=== PATIENT | female | born 1935 | race Caucasian/White ===

== ENCOUNTER 2016-11-02 11:01 | Observation (INO) | payer OTHER, MEDICARE ==
[~2016-11-02] VITALS: Ht 167.6 cm; Wt 62.9 kg
[~2016-11-02 11:01] MED LIST: ACET-1311 PO; ALLO300T2 PO; CALC1TAB9 PO; CITA10TA4 PO; CYAN3INJ IM; FURO-85 PO; IBRU1CAP PO; LORA-741 PO; MULT-506 PO; PRED10TA PO; TRAM-10 PO
[2016-11-02] MEDS ORDERED: NITROGLYCERIN 0.4 MG SL PER TAB CHARGE SL STA (11:16)
[2016-11-02] MEDS ORDERED: CYNI1000 INJ (11:33)
[2016-11-02] MEDS ORDERED: PRMVC (11:33)
[2016-11-02] MEDS ORDERED: MIRA100T PO (11:33)
--- NOTE | 2016-11-02 11:33 | DIAGNOSTIC IMAGING REPORT ---
CHEST ONE VIEW PORTABLE HISTORY: Atypical Chest Pain COMPARISON: Chest 01/19/2015. FINDINGS: The lungs are clear. Cardiac silhouette is normal in size. No pleural effusions. No pneumothorax. IMPRESSION: No acute process. Electronically signed by: Pelon Denton M.D. 11/02/2016 11:32 AM Dictated Date/Time: 11/02/2016 11:31 AM
--- NOTE | 2016-11-02 11:38 | EMERGENCY ROOM VISIT NOTE ---
History Report prepared by Marisol: Ina King Under the Supervision of: Dr. Eduar Chapman M.D. First contact with patient: 11:10 Chief Complaint: CARDIAC ASSESSMENT Stated Complaint: CHEST PAIN History of Present Illness The patient is a 81 year old female who presents to the Emergency Room with complaints of worsening chest discomfort starting yesterday. She describes the pain as dull. The chest pain started as a slight sensation in her chest yesterday. Today the sensation worsened into a discomfort. She went to Urgent Care who sent her to the ED. She denies any arm, neck, or jaw pain. She denies any increased swelling to her legs or SOB. She denies any history of [facility]. She has chronic lymphocytic leukemia. She is on steroids. She is not on any blood thinners. Source of History: patient Onset: yesterday Position: chest Quality: dull Timing: worsening Associated Symptoms: No SOB Note: Pt denies arm pain, neck pain, jaw pain, increased swelling to the legs. Review of Systems See HPI for pertinent positives & negatives. A total of 10 systems reviewed and were otherwise negative. Past Medical & Surgical Medical Problems: (1) Chest pain (2) Chronic lymphocytic leukemia (3) Leukemia (4) Neutropenic fever (5) Pneumonia (6) Sepsis syndrome (7) Tonsil cancer Family History Cancer Social History Smoking Status: Never Smoker Alcohol Use: none Drug Use: none Marital Status: Housing Status: lives with family Occupation Status: retired Current/Historical Medications Scheduled Allopurinol (Zyloprim), 1 TAB PO DAILY Calcium Citrate-Vitamin D (Citracal + D3 Maximum), 3 TABS PO QAM Cyanocobalamin (Cyanocobalamin), 1 ML INJ MONTHLY Ibrutinib (Imbruvica), 420 MG PO DAILY Lorazepam (Ativan), 0.5 MG PO TID Mirabegron (Myrbetriq Er), 2 TAB PO DAILY Multivitamin (Multivitamin), 1 TAB PO DAILY Prednisone Tab (Prednisone), 10 MG PO DAILY Scheduled PRN Acetaminophen (Tylenol), 650 MG PO Q6H PRN for Pain Furosemide (Lasix), 1 TAB PO DAILY PRN for edema Tramadol (Ultram), 50 MG PO Q4H PRN for Pain Miscellaneous Medications Estrogens, Conjugated (Premarin) Allergies Coded Allergies: Cephalosporins (Verified Allergy, Unknown, 06/27/16) Nitrofurantoin (Verified Allergy, Unknown, 06/27/16) Oxaprozin (Verified Allergy, Unknown, 06/27/16) Oxybutynin (Verified Allergy, Unknown, 06/27/16) Physical Exam Vital Signs Date Time Temp Pulse Resp B/P Pulse Ox O2 Delivery O2 Flow Rate FiO2 11/02/16 12:45 99 Room Air 11/02/16 11:41 86 18 135/74 97 Room Air 11/02/16 11:33 83 18 165/76 97 Room Air 11/02/16 11:27 83 11/02/16 11:03 36.7 88 18 173/91 98 Room Air Physical Exam GENERAL: Patient is mildly anxious appearing and in no acute distress. HEENT: No acute trauma, normocephalic atraumatic, mucous membranes moist, no nasal congestion, no scleral icterus. NECK: No stridor, no adenopathy, no meningismus, trachea is midline. LUNGS: No dyspnea. Clear to auscultation and equal bilaterally. No wheeze, no rhonchi. HEART: Regular rate and rhythm. No murmurs, rubs, gallops appreciated. ABDOMEN: Soft, nontender, bowel sounds positive, no masses appreciated, no peritonitis. BACK: No midline tenderness, no CVA tenderness. EXTREMITIES: Normal motion all extremities, no cyanosis. Trace edema to the bilateral legs with peripheral vascular disease. NEUROLOGIC: Alert and oriented, no acute motor or sensory deficits, no focal weakness, cranial nerves grossly intact. SKIN: No rash, no jaundice, no diaphoresis. Medical Decision & Procedures ER Provider Diagnostic Interpretation: X ray results are stated below per my interpretation and the radiologist's interpretation. CHEST ONE VIEW PORTABLE HISTORY: Atypical Chest Pain COMPARISON: Chest 01/19/2015. FINDINGS: The lungs are clear. Cardiac silhouette is normal in size. No pleural effusions. No pneumothorax. IMPRESSION: No acute process. Electronically signed by: Pelon Denton M.D. 11/02/2016 11:32 AM Dictated Date/Time: 11/02/2016 11:31 AM Laboratory Results 11/02/16 11:25 Red Blood Count 4.21, Mean Corpuscular Volume 86.7, Mean Corpuscular Hemoglobin 26.4, Mean Corpuscular Hemoglobin Concent 30.4, Mean Platelet Volume 9.9, Neutrophils (%) (Auto) 5.8, Lymphocytes (%) (Auto) 92.7, Monocytes (%) (Auto) 1.2, Eosinophils (%) (Auto) 0.0, Basophils (%) (Auto) 0.2, Neutrophils # (Auto) 2.04, Lymphocytes # (Auto) 32.59, Monocytes # (Auto) 0.43, Eosinophils # (Auto) 0.01, Basophils # (Auto) 0.06 11/02/16 11:25 Test 11/02/16 11:25 White Blood Count 35.15 K/uL (4.8-10.8) Red Blood Count 4.21 M/uL (4.2-5.4) Hemoglobin 11.1 g/dL (12.0-16.0) Hematocrit 36.5 % (37-47) Mean Corpuscular Volume 86.7 fL (80-100) Mean Corpuscular Hemoglobin 26.4 pg (25-34) Mean Corpuscular Hemoglobin Concent 30.4 g/dl (32-36) Platelet Count 121 K/uL (130-400) Mean Platelet Volume 9.9 fL (7.4-10.4) Neutrophils (%) (Auto) 5.8 % Lymphocytes (%) (Auto) 92.7 % Monocytes (%) (Auto) 1.2 % Eosinophils (%) (Auto) 0.0 % Basophils (%) (Auto) 0.2 % Neutrophils # (Auto) 2.04 K/uL (1.4-6.5) Lymphocytes # (Auto) 32.59 K/uL (1.2-3.4) Monocytes # (Auto) 0.43 K/uL (0.11-0.59) Eosinophils # (Auto) 0.01 K/uL (0-0.5) Basophils # (Auto) 0.06 K/uL (0-0.2) RDW Standard Deviation 48.1 fL (36.4-46.3) RDW Coefficient of Variation 15.1 % (11.5-14.5) Immature Granulocyte % (Auto) 0.1 % Immature Granulocyte # (Auto) 0.02 K/uL (0.00-0.02) Smudge Cells PRESENT Anion Gap 8.0 mmol/L (3-11) Est Creatinine Clear Calc Drug Dose 44.9 ml/min Estimated GFR () 66.0 Estimated GFR (Non- 57.0 BUN/Creatinine Ratio 31.4 (10-20) Calcium Level 9.0 mg/dl (8.5-10.1) Total Creatine Kinase 28 U/L (26-192) Creatine Kinase MB 0.5 ng/ml (0.5-3.6) Creatine Kinase MB Ratio 1.8 (0-3.0) Troponin I < 0.015 ng/ml (0-0.045) Laboratory results as reviewed by me. Medications Administered Medications (Trade) Dose Ordered Sig/Jazmine Route Start Time Stop Time Status Last Admin Dose Admin Nitroglycerin (Nitrostat Tab) 0.4 mg PRN STAT SL 11/02/16 11:16 11/02/16 11:17 DC 11/02/16 11:16 0.4 MG ECG Indication: chest pain Rate (beats per minute): 82 Rhythm: normal sinus Findings: nonspecific-ST abn, ST elevation (mild in V1 only, does not meet STEMI criteria) ED Course 1111: The patient was evaluated in room C6. A complete history and physical exam was performed. 1116: Nitroglycerin 0.4 mg SL. 1143: I reevaluated the patient. She has had complete resolution of her chest pain with nitro. She has developed a mild headache and requests Tylenol. 1144: Acetaminophen 325 mg PO. 1216: I reevaluated the patient. She is resting comfortably. I discussed results and treatment plan with the patient. She verbalized understanding and agreement with the treatment plan. The patient will be evaluated for further management. 1223: I discussed the patient's case with Dr. Woo, [facility] Hospitalist. The patient will be evaluated for further treatment and disposition. Medical Decision Differential: Cardiac Ischemia (STEMI, NSTEMI, Unstable Angina, etc), Aortic Dissection, Arrhythmia, Pulmonary Embolism, Pneumonia, Pneumothorax, MSK, Infectious, Pericarditis/Myocarditis, Esophageal Rupture, Gastrointestinal, amongst other pathologies entertained. 81 yr old female arrives with complaint of left chest pressure. Exertional in nature starting yesterday. Resolved with nitro. Much improved after being here. Initial labs, ekg, trop, cxr OK. Will need to come in for further cardiac work-up and evaluation. Stable throughout ED stay. Consults Time Called: 1221 Consulting Physician: Dr. Woo [facility] Hospitalist Returned Call: 1223 Discussed the patient's case. The patient will be evaluated for further treatment and disposition. Impression Primary Impression: Pressure in left side of chest Scribe Attestation The scribe's documentation has been prepared under my direction and personally reviewed by me in its entirety. I confirm that the note above accurately reflects all work, treatment, procedures, and medical decision making performed by me. Departure Information Dispostion Being Evaluated By Hospitalist Referrals Tita Garcia M.D. (PCP) Patient Instructions My [facility]
[2016-11-02] MEDS ORDERED: ACETAMINOPHEN 325 MG TAB PO STA (11:44)
[2016-11-02 11:53] LABS: BLOOD UREA NITROGEN 30 mg/dl (7-18); BUN/CREATININE RATIO 31.4 (10-20); CARBON DIOXIDE 29 mmol/L (21-32); CHLORIDE 104 mmol/L (98-107); CREATININE 0.95 mg/dl (0.60-1.20); GLUCOSE 107 mg/dl (70-99); POTASSIUM 4.4 mmol/L (3.5-5.1); SODIUM 141 mmol/L (136-145)
[2016-11-02 11:58] LABS: CKMB/CK RATIO 1.8 (0-3.0)
[2016-11-02 12:12] LABS: HEMATOCRIT 36.5 % (37-47); MEAN CELL VOLUME 86.7 fL (80-100); MEAN CORPUSCULAR HEMOGLOBIN 26.4 pg (25-34); MEAN CORPUSCULAR HGB CONC 30.4 g/dl (32-36); MEAN PLATELET VOLUME 9.9 fL (7.4-10.4); PLATELET COUNT 121 K/uL (130-400); RED BLOOD COUNT 4.21 M/uL (4.2-5.4); WHITE BLOOD COUNT 35.15 K/uL (4.8-10.8)
[2016-11-02 12:32] LABS: BASO % 0.2 %; BASO ABS # 0.06 K/uL (0-0.2); COMPLETE YES; IG% 0.1 %; LYMPH % 92.7 %; LYMPH ABS # 32.59 K/uL (1.2-3.4); MONO % 1.2 %; NEUT % 5.8 %; SMUDGE CELLS PRESENT
--- NOTE | 2016-11-02 12:41 | History and Physical ---
History & Physical Date & Time of Service: Nov 02, 2016 at 12:40 . Chief Complaint: chest pain . Primary Care Physician: Tita Garcia M.D. . History of Present Illness Source: patient, clinic records, hospital records 81 YO female followed by Dr. Tita Garcia for Internal Medicine and Dr. Mills for Hematology / Oncology. History of CLL, dyslipidemia, and other problems noted below. BP's high at times, but usually OK and has not required treatment for hypertension. Gardening yesterday. Developed mild left sided chest pressure afterwards. [place] tired. No SOB, diaphoresis, nausea, vomiting. Symptoms resolved with rest. 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 Ambulated from her car. Developed left sided chest pressure, more severe than yesterday. Pain did not radiate and was not pleuritic in nature. No associated dyspnea, palpitations, nausea, vomiting. Came to ED. Still had some chest discomfort upon arrival. Received SL nitroglycerin with relief of CP. Pain-free at time of my assessment. . 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 Family History FATHER Heart disease MOTHER Brain aneurysm BROTHER Cancer GRANDMOTHER Diabetes mellitus / reviewed and updated. . Social History Smoking Status: Never Smoker Alcohol Use: occasionally Drug Use: none Marital Status: Occupational Status: retired Immunizations History of Influenza Vaccine: Yes History of Tetanus Vaccine?: Yes History of Pneumococcal: Yes Pneumococcal Date: November 30, 2008 History of Hepatitis B Vaccine: No Multi-Drug Resistant Organisms History of MDRO: No Allergies Coded Allergies: Cephalosporins (Verified Allergy, Unknown, 06/27/16) Nitrofurantoin (Verified Allergy, Unknown, 06/27/16) Oxaprozin (Verified Allergy, Unknown, 06/27/16) Oxybutynin (Verified Allergy, Unknown, 06/27/16) Home Medications Scheduled Allopurinol (Zyloprim), 1 TAB PO DAILY Calcium Citrate-Vitamin D (Citracal + D3 Maximum), 3 TABS PO QAM Cyanocobalamin (Cyanocobalamin), 1 ML INJ MONTHLY Ibrutinib (Imbruvica), 420 MG PO DAILY Lorazepam (Ativan), 0.5 MG PO TID Mirabegron (Myrbetriq Er), 2 TAB PO DAILY Multivitamin (Multivitamin), 1 TAB PO DAILY Prednisone Tab (Prednisone), 10 MG PO DAILY Scheduled PRN Acetaminophen (Tylenol), 650 MG PO Q6H PRN for Pain Furosemide (Lasix), 1 TAB PO DAILY PRN for edema Tramadol (Ultram), 50 MG PO Q4H PRN for Pain Miscellaneous Medications Estrogens, Conjugated (Premarin) Review of Systems Constitutional: + fatigue, No chills, No fever, No weight loss Eyes: No diplopia, No worsening of vision ENT: + hearing loss, No nasal symptoms, No sore throat Respiratory: + cough (minimal), No shortness of breath, No sputum, No wheezing Cardiovascular: + problem reported (as noted above in HPI) Abdomen: No constipation, No diarrhea, No nausea, No pain, No vomiting Musculoskeletal: + joint pain Genitourinary - Female: No dysuria, No hematuria (undergoing eval for microscopic hematuria) Neurologic: No memory loss, No weakness Endocrine: No excessive thirst, No excessive urination Hematologic / Lymphatic: + abnormal bleeding/bruising (bruises very easily), + swollen lymph nodes (chronic) Integumentary: + problem reported (followed by Derm; recent cryotherapy), No rash Physical Exam Vital Signs Date Time Temp Pulse Resp B/P Pulse Ox O2 Delivery O2 Flow Rate FiO2 11/02/16 11:41 86 18 135/74 97 Room Air 11/02/16 11:33 83 18 165/76 97 Room Air 11/02/16 11:27 83 11/02/16 11:03 36.7 88 18 173/91 98 Room Air General Appearance: WD/WN, no apparent distress Head: normocephalic, atraumatic Eyes: normal inspection, PERRL, EOMI, sclerae normal, + pertinent finding ( conjunctivae pink) ENT: normal ENT inspection, hearing grossly normal (with hearing aide), pharynx normal, + pertinent finding (dentition fair; multiple caries) Neck: supple, thyroid normal, no JVD, trachea midline Respiratory/Chest: lungs clear, no respiratory distress, no accessory muscle use Cardiovascular: regular rate, rhythm, no edema, no gallop, no JVD, no murmur, normal peripheral pulses Abdomen/GI: normal bowel sounds, non tender, soft, no organomegaly, no pulsatile mass Extremities/Musculoskelatal: normal inspection, no calf tenderness, normal capillary refill, no pedal edema Neurologic/Psych: smearer II-XII nml as tested (PERRL, EOMI, no facial palsy, no dysarthria), no motor/sensory deficits (strength upper and lower extremies intact), normal mood/affect, normal reflexes (patellar reflexes 2/2 bilat), oriented x 3 Skin: normal color, warm/dry, no rash, + pertinent finding (multiple ecchymoses , multiple seborrheic keratoses, several lesions with shallow ulceration from recent cryotherapy) Lymphatic: + axillary node abnormality (cervical / supraclavicular) Diagnostics Laboratory Results Results Past 24 Hours Test 11/02/16 11:25 Range/Units White Blood Count 35.15 4.8-10.8 K/uL Red Blood Count 4.21 4.2-5.4 M/uL Hemoglobin 11.1 12.0-16.0 g/dL Hematocrit 36.5 37-47 % Mean Corpuscular Volume 86.7 80-100 fL Mean Corpuscular Hemoglobin 26.4 25-34 pg Mean Corpuscular Hemoglobin Concent 30.4 32-36 g/dl Platelet Count 121 130-400 K/uL Mean Platelet Volume 9.9 7.4-10.4 fL Neutrophils (%) (Auto) 5.8 % Lymphocytes (%) (Auto) 92.7 % Monocytes (%) (Auto) 1.2 % Eosinophils (%) (Auto) 0.0 % Basophils (%) (Auto) 0.2 % Neutrophils # (Auto) 2.04 1.4-6.5 K/uL Lymphocytes # (Auto) 32.59 1.2-3.4 K/uL Monocytes # (Auto) 0.43 0.11-0.59 K/uL Eosinophils # (Auto) 0.01 0-0.5 K/uL Basophils # (Auto) 0.06 0-0.2 K/uL RDW Standard Deviation 48.1 36.4-46.3 fL RDW Coefficient of Variation 15.1 11.5-14.5 % Immature Granulocyte % (Auto) 0.1 % Immature Granulocyte # (Auto) 0.02 0.00-0.02 K/uL Smudge Cells PRESENT Sodium Level 141 136-145 mmol/L Potassium Level 4.4 3.5-5.1 mmol/L Chloride Level 104 98-107 mmol/L Carbon Dioxide Level 29 21-32 mmol/L Anion Gap 8.0 3-11 mmol/L Blood Urea Nitrogen 30 7-18 mg/dl Creatinine 0.95 0.60-1.20 mg/dl Est Creatinine Clear Calc Drug Dose 44.9 ml/min Estimated GFR () 66.0 Estimated GFR (Non- 57.0 BUN/Creatinine Ratio 31.4 10-20 Random Glucose 107 70-99 mg/dl Calcium Level 9.0 8.5-10.1 mg/dl Total Creatine Kinase 28 26-192 U/L Creatine Kinase MB 0.5 0.5-3.6 ng/ml Creatine Kinase MB Ratio 1.8 0-3.0 Troponin I < 0.015 0-0.045 ng/ml Diagnostic Radiology CHEST ONE VIEW PORTABLE (reviewed by undersigned and interpreted by Radiology): FINDINGS: The lungs are clear. Cardiac silhouette is normal in size. No pleural effusions. No pneumothorax. IMPRESSION: No acute process. Electronically signed by: Pelon Denton M.D. 11/02/2016 11:32 AM Dictated Date/Time: 11/02/2016 11:31 AM . EKG EKG performed at 11:11 reviewed and demonstrated NSR at 80 / minute, possible age-indeterminate septal infarct, no acute ST or T-wave abnormalities. . Impression Assessment and Plan CHEST PAIN CP with moderate exertion over last 2 days. Symptoms worse today, relieved by NTG. Risk factors for CAD- dyslipidemia, borderline hypertension, chronic steroid use. Cardiac markers in ED normal. No acute EKG changes. Check serial cardiac markers and EKG's. Consult Cardiology. BORDERLINE HYPERTENSION Follow. DYSLIPIDEMIA Check fasting lipid profile. CLL WBC 35,150 compared to 46,250 on 10/18/16. Plts 121,000 compared to 133,000 on 10/18/16. Hgb 11.1 compared to 10.3 on 10/18/16. Continue ibrutinib and prednisone. Follow-up with Dr. Mills. MICROSCOPIC HEMATURIA Undergoing outpatient evaluation. VTE PROPHYLAXIS Moderate risk for VTE. No anticoagulants due to thrombocytopenia and easy bruising. SCD's. Ambulate. RESUSCITATION STATUS Discussed with patient. She has a living will. She would like resuscitation attempted in the event of a cardiopulmonary arrest if there is a reasonable chance of a meaningful recovery, but does not want prolonged extraordinary measures if prognosis is poor. Therefore, code status = "Level 1" (full resuscitation). DISPOSITION Observation status on Telemetry Unit. Expected discharge to home. Internal Medicine follow-up with Dr. Tita Garcia. Hematology / Oncology follow-up with Dr. Mills. . VTE Prophylaxis Risk Level: Moderate Given or contraindicated: SCD's
[2016-11-02 12:45] VITALS: O2SAT 99; Ht 167.6 cm; Wt 62.9 kg
[2016-11-02] MEDS ORDERED: ACETAMINOPHEN 325 MG TAB PO PRN ×2 (12:45→14:30)
[2016-11-02] MEDS ORDERED: MoRPHine SULFATE 2 MG/ML CARP IV PRN (12:45)
[2016-11-02] MEDS ORDERED: NITROGLYCERIN 0.4 MG SL PER TAB CHARGE SL PRN (12:45)
[2016-11-02] MEDS ORDERED: HEPARIN SOD 5000 UNIT/0.5 ML CARP SQ SCH (14:00)
[2016-11-02] MEDS ORDERED: IV FLUIDS COMPLETED PRN (14:15)
[2016-11-02] MEDS ORDERED: TRAMADOL HCL 50 MG TAB PO PRN (14:30)
[2016-11-02 14:49] VITALS: BP 180/80; PULSE 92; TEMP 36.8; O2SAT 98
[2016-11-02 16:00] VITALS: BP 144/69; PULSE 80; O2SAT 94
[2016-11-02 20:03] VITALS: BP 138/76; PULSE 89; TEMP 36.8; O2SAT 97
[2016-11-02] MEDS: LORAZEPAM 0.5 MG TAB PO SCH (21:02)
[2016-11-03] VITALS: BP 135/69; PULSE 86; TEMP 36.8; O2SAT 97
[2016-11-03 03:49] VITALS: BP 157/70; PULSE 86; TEMP 36.8; O2SAT 97
[2016-11-03 06:25] LABS: CHOLESTEROL/HDL RATIO 2.7
[2016-11-03 07:52] VITALS: BP 142/77; PULSE 87; TEMP 36.6; O2SAT 96
[2016-11-03] MEDS: LORAZEPAM 0.5 MG TAB PO SCH ×3 (07:53→20:54)
[2016-11-03] MEDS: ALLOPURINOL 300 MG TAB PO SCH (08:16)
--- NOTE | 2016-11-03 09:52 | Progress Note ---
Medicine Progress Note Date & Time of Visit: Nov 03, 2016 at 09:44. Subjective seen resting in bed, comfortable states she feels fine overall denies recurrence of chest pain denies shortness of breath, palpitations, nausea/vomiting no other symptoms Objective Last 8 Hrs Date Time Temp Pulse Resp B/P Pulse Ox O2 Delivery O2 Flow Rate FiO2 11/03/16 08:00 Room Air 11/03/16 07:52 36.6 87 20 142/77 96 Room Air 11/03/16 04:00 Room Air 11/03/16 03:49 36.8 86 20 157/70 97 Room Air Physical Exam: General- oriented x 3 , not in distress Head- atraumatic Eyes- EOMI, anicteric ENT- oropharynx clear Neck- supple, no JVD, no adenopathy Lungs- clear breath sounds bilaterally Heart- regular rhythm; no murmur, normal rate Abdomen- normal bowel sounds, soft, nontender Extremities- no pretibial edema, no calf tenderness; peripheral pulses intact Neuro- alert, oriented x 3; no gross focal deficits Skin- warm & dry Laboratory Results: Last 24 Hours Test 11/02/16 11:25 11/02/16 19:03 11/03/16 05:08 White Blood Count 35.15 K/uL Red Blood Count 4.21 M/uL Hemoglobin 11.1 g/dL Hematocrit 36.5 % Mean Corpuscular Volume 86.7 fL Mean Corpuscular Hemoglobin 26.4 pg Mean Corpuscular Hemoglobin Concent 30.4 g/dl Platelet Count 121 K/uL Mean Platelet Volume 9.9 fL Neutrophils (%) (Auto) 5.8 % Lymphocytes (%) (Auto) 92.7 % Monocytes (%) (Auto) 1.2 % Eosinophils (%) (Auto) 0.0 % Basophils (%) (Auto) 0.2 % Neutrophils # (Auto) 2.04 K/uL Lymphocytes # (Auto) 32.59 K/uL Monocytes # (Auto) 0.43 K/uL Eosinophils # (Auto) 0.01 K/uL Basophils # (Auto) 0.06 K/uL RDW Standard Deviation 48.1 fL RDW Coefficient of Variation 15.1 % Immature Granulocyte % (Auto) 0.1 % Immature Granulocyte # (Auto) 0.02 K/uL Smudge Cells PRESENT Sodium Level 141 mmol/L Potassium Level 4.4 mmol/L Chloride Level 104 mmol/L Carbon Dioxide Level 29 mmol/L Anion Gap 8.0 mmol/L Blood Urea Nitrogen 30 mg/dl Creatinine 0.95 mg/dl Est Creatinine Clear Calc Drug Dose 44.9 ml/min Estimated GFR () 66.0 Estimated GFR (Non- 57.0 BUN/Creatinine Ratio 31.4 Random Glucose 107 mg/dl Calcium Level 9.0 mg/dl Total Creatine Kinase 28 U/L Creatine Kinase MB 0.5 ng/ml Creatine Kinase MB Ratio 1.8 Troponin I < 0.015 ng/ml 0.021 ng/ml 0.020 ng/ml Triglycerides Level 136 mg/dl Cholesterol Level 169 mg/dl HDL Cholesterol 63 mg/dl LDL Cholesterol, Calculated 79 mg/dl VLDL Cholesterol, Calculated 27 mg/dl Cholesterol/HDL Ratio 2.7 Assessment & Plan 81 year old female with history of CLL, HLD, presenting with chest pain. CHEST PAIN, r/o ACS, secondary to Hypertensive Urgency? presented with chest pain on moderate exertion over last 2 days; relieved by Nitro at the ER -- cardiac markers negative x 3 ekg no signs of acute ischemia echo pending -- currently chest pain free -- Cardiology consulted HYPERTENSION -- patient noted increase in BP trend after starting Myrbetriq has not taken Myrbetriq since -- monitor DYSLIPIDEMIA LDL 79 HDL 63 TG 136 CLL WBC 35,150 compared to 46,250 on 10/18/16. Plts 121,000 compared to 133,000 on 10/18/16. Hgb 11.1 compared to 10.3 on 10/18/16. Continue ibrutinib and prednisone. follows with Dr. Mills MICROSCOPIC HEMATURIA Undergoing outpatient evaluation. VTE PROPHYLAXIS Moderate risk for VTE. No anticoagulants due to thrombocytopenia and easy bruising. SCD's. Ambulate. RESUSCITATION STATUS full code DISPOSITION Observation status on Telemetry Unit. Expected discharge to home. Internal Medicine follow-up with Dr. Tita Garcia. Hematology / Oncology follow-up with Dr. Mills. . Current Inpatient Medications: Current Inpatient Medications Medications (Trade) Dose Ordered Sig/Jazmine Route Start Time Stop Time Status Last Admin Dose Admin Acetaminophen (Tylenol Tab) 650 mg Q4H PRN PO 11/02/16 12:45 12/02/16 12:44 11/02/16 16:04 650 MG Nitroglycerin (Nitrostat Tab) 0.4 mg UD PRN SL 11/02/16 12:45 12/02/16 12:44 Morphine Sulfate (MoRPHine SULFATE INJ) 2 mg Q30M PRN IV 11/02/16 12:45 11/16/16 12:44 Miscellaneous (Iv Fluids Completed) 1 ea PRN PRN N/A 11/02/16 14:15 11/02/17 14:14 Allopurinol (Zyloprim Tab) 300 mg DAILY PO 11/03/16 09:00 12/03/16 08:59 11/03/16 08:16 300 MG Lorazepam (Ativan Tab) 0.5 mg TID PO 11/02/16 21:00 12/02/16 20:59 11/02/16 21:02 0.5 MG Prednisone (PredniSONE TAB) 10 mg DAILY PO 11/03/16 09:00 12/03/16 08:59 11/03/16 08:16 10 MG Tramadol HCl (Ultram Tab) 50 mg Q4H PRN PO 11/02/16 14:30 12/02/16 14:29 Miscellaneous Information (Order Awaiting Action) 1 ea QS N/A 11/02/16 16:00 12/02/16 15:59 11/03/16 07:56 1 EA
[2016-11-03 12:17] VITALS: BP 147/75; PULSE 109; TEMP 36.7; O2SAT 97
--- NOTE | 2016-11-03 14:38 | CARDIOLOGY CONSULTATION ---
DATE OF CONSULTATION: 11/03/2016 REASON FOR CONSULTATION: Chest pain. HISTORY OF PRESENT ILLNESS: This is a 81-year-old female who has had chronic lymphocytic leukemia for decades. Recently she started a new chemotherapy regimen which she has been taking for a year and her blood dyscrasia continues to be stable. The day before admission, the patient was in her usual state of good health and was doing some gardening. She developed some mild left-sided chest discomfort that went away with rest. It was not associated with shortness of breath or heart palpitations. 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 She presented to the Emergency Department where she was given 1 sublingual nitroglycerin that relieved her chest pain and she has been chest pain free since admission. Her EKG shows no acute changes and her cardiac markers have been negative. ALLERGIES: CEPHALOSPORINS, NITROFURANTOIN, OXAPROZIN, AND OXYBUTYNIN. PAST MEDICAL HISTORY: As outlined in history of chief complaint. She has a history of chronic lymphocytic leukemia which has been treated for decades by Dr. Mills from [facility]. She is also treated for GERD and dyslipidemia. SOCIAL HISTORY: She is a never smoke. She is and lives independently. FAMILY MEDICAL HISTORY: Noncontributory. REVIEW OF SYSTEMS: A 10-point review of systems is negative except for the history of chief complaint. PHYSICAL EXAMINATION: GENERAL: She is alert and oriented in no acute distress. VITAL SIGNS: Blood pressure is 130/70, pulse is regular at 86. She is afebrile. HEENT: She is normocephalic. Pupils are equal and reactive to light. Extraocular muscles are intact bilaterally. NECK: The neck veins are flat. Carotids have good upstrokes bilaterally without bruits. Thyroid is nonpalpable. RESPIRATORY: Breath sounds equal bilaterally and clear to auscultation. CARDIOVASCULAR: Heart has a regular rhythm. Normal S1, S2. No S3, S4. No cardiac rubs or murmurs. GASTROINTESTINAL: Abdomen is soft, nontender without organomegaly. EXTREMITIES: Free of edema, digit clubbing, or cyanosis. NEUROLOGIC: Grossly intact. SKIN: Warm to touch. LYMPH NODES: Negative to palpation. LABORATORY DATA: Per the history of chief complaint. IMPRESSION: 1. Chest pain. 2. Chronic lymphocytic leukemia. RECOMMENDATIONS: I believe the patient should undergo a screening stress test prior to discharge home. This should be a dobutamine stress echocardiogram and I will order it to be done tomorrow morning. If that study is unremarkable, then she can be discharged to outpatient followup.
[2016-11-03 15:22] VITALS: BP 123/66; PULSE 93; TEMP 36.6; O2SAT 96
[2016-11-03 19:49] VITALS: BP 130/69; PULSE 86; TEMP 36.7; O2SAT 96
[2016-11-04] VITALS: BP 144/71; PULSE 86; TEMP 36.6; O2SAT 97
[2016-11-04 03:59] VITALS: BP 142/71; PULSE 78; TEMP 36.6; O2SAT 98
[2016-11-04] MEDS: ALLOPURINOL 300 MG TAB PO SCH (07:43)
[2016-11-04] MEDS: LORAZEPAM 0.5 MG TAB PO SCH ×2 (07:43→07:45)
[2016-11-04 07:54] VITALS: BP 139/77; PULSE 93; TEMP 36.5; O2SAT 97
[2016-11-04] MEDS ORDERED: METOPROLOL TARTRATE 1 MG/ML VIAL ONE (09:44)
[2016-11-04] MEDS ORDERED: DOBUTamine HCL 12.5 MG/ML 20 ML VIAL ONE (09:44)
[2016-11-04] MEDS ORDERED: ATROPINE SULFATE 0.1 MG/ML 5ML SYR ONE (09:44)
[2016-11-04 12:05] VITALS: BP 141/82; PULSE 84; TEMP 36.6; O2SAT 97
--- NOTE | 2016-11-04 12:16 | Progress Note ---
Medicine Progress Note Date & Time of Visit: November 04, 2016 at 12:09. Subjective s/p stress test today tolerated well seen sitting up in bed, just had lunch states she feels better overall denies recurrence of chest pain no dyspnea, palpitations, nausea/vomiting denies other symptoms states she is ready and would like to go home today Objective Last 8 Hrs Date Time Temp Pulse Resp B/P Pulse Ox O2 Delivery O2 Flow Rate FiO2 11/04/16 12:05 36.6 84 20 141/82 97 Room Air 11/04/16 12:00 Room Air 11/04/16 08:00 Room Air 11/04/16 07:54 36.5 93 20 139/77 97 Room Air Physical Exam: General- oriented x 3 , not in distress Neck- no JVD Lungs- clear BS bilaterally, no rales/wheezes Heart- normal rate, regular rhythm; no murmurs Abdomen- normal bowel sounds, soft, nontender Extremities- no pretibial edema, no calf tenderness Neuro- alert, oriented x 3; no gross focal deficits Skin- warm & dry Assessment & Plan 81 year old female with history of CLL, HLD, presenting with chest pain. CHEST PAIN, ACUTE CORONARY SYNDROME RULED OUT possiblly secondary to Hypertensive Urgency presented with chest pain on moderate exertion over last 2 days prior to admission; relieved by Nitro at the ER -- cardiac markers negative x 3 ekg no signs of acute ischemia s/p stress test: NEGATIVE for ischemia -- no recurrence of chest pain -- evaluated by Dr. Cummings- Cardiology no further medications changes except to stop Myrbetriq HYPERTENSION -- patient noted increase in BP trend after starting Myrbetriq has not taken Myrbetriq since prior to admission -- BP improving- systolic 130s-140s asymptomatic -- monitor BP as outpatient DYSLIPIDEMIA LDL 79 HDL 63 TG 136 -- monitor as outpatient CLL WBC 35,150 compared to 46,250 on 10/18/16. Plts 121,000 compared to 133,000 on 10/18/16. Hgb 11.1 compared to 10.3 on 10/18/16. Continue ibrutinib and prednisone. -- follows with Dr. Mills ff up on Friday MICROSCOPIC HEMATURIA Undergoing outpatient evaluation. VTE PROPHYLAXIS Moderate risk for VTE. No anticoagulants due to thrombocytopenia and easy bruising. SCD's. Ambulate. RESUSCITATION STATUS full code DISPOSITION d/c home Internal Medicine follow-up with Dr. Tita Garcia next week. Hematology / Oncology follow-up with Dr. Mills this coming Friday. . Current Inpatient Medications: Current Inpatient Medications Medications (Trade) Dose Ordered Sig/Jazmine Route Start Time Stop Time Status Last Admin Dose Admin Acetaminophen (Tylenol Tab) 650 mg Q4H PRN PO 11/02/16 12:45 12/02/16 12:44 11/02/16 16:04 650 MG Nitroglycerin (Nitrostat Tab) 0.4 mg UD PRN SL 11/02/16 12:45 12/02/16 12:44 Morphine Sulfate (MoRPHine SULFATE INJ) 2 mg Q30M PRN IV 11/02/16 12:45 11/16/16 12:44 Miscellaneous (Iv Fluids Completed) 1 ea PRN PRN N/A 11/02/16 14:15 11/02/17 14:14 Allopurinol (Zyloprim Tab) 300 mg DAILY PO 11/03/16 09:00 12/03/16 08:59 11/04/16 07:43 300 MG Lorazepam (Ativan Tab) 0.5 mg TID PO 11/02/16 21:00 12/02/16 20:59 11/03/16 20:54 0.5 MG Prednisone (PredniSONE TAB) 10 mg DAILY PO 11/03/16 09:00 12/03/16 08:59 11/04/16 07:43 10 MG Tramadol HCl (Ultram Tab) 50 mg Q4H PRN PO 11/02/16 14:30 12/02/16 14:29 Miscellaneous Information (Order Awaiting Action) 1 ea QS N/A 11/02/16 16:00 12/02/16 15:59 11/03/16 07:56 1 EA
--- NOTE | 2016-11-04 12:26 | Discharge Instructions ---
Discharge Instructions Date of Service November 04, 2016. Admission Reason for Admission: Chest Pain Discharge Discharge Diagnosis / Problem: CHEST PAIN Discharge Goals Goal(s): Diagnostic testing, Therapeutic intervention Activity Recommendations Activity Limitations: as noted below (NO HEAVY EXERTION UNTIL RE-EVALUATED BY PRIMARY CARE PHYSICIAN) . Instructions / Follow-Up Instructions / Follow-Up DISCONTINUE MYRBETRIQ. CALL PRIMARY CARE PHYSICIAN OR RETURN TO ER IMMEDIATELY IF WITH RECURRENCE OF SYMPTOMS, SHORTNESS OF BREATH, WEAKNESS, HEADACHE, DIZZINESS. FOLLOW UP WITH DR. TURNER SCHEDULED THIS WEEK. FOLLOW UP WITH DR. DIA ON NOVEMBER 11, 2016 AT 10:45 AM. Current Hospital Diet Patient's current hospital diet: AHA Diet (Heart Healthy) Discharge Diet Recommended Diet: AHA Diet (Heart Healthy) Procedures Procedures Performed: STRESS TEST Pending Studies Studies pending at discharge: no Laboratory Results Lipid Panel Test 11/03/16 05:08 Range/Units Triglycerides Level 136 0-150 mg/dl Cholesterol Level 169 0-200 mg/dl HDL Cholesterol 63 mg/dl Cholesterol/HDL Ratio 2.7 LDL Cholesterol, Calculated 79 mg/dl Medical Emergencies . Who to Call and When: Medical Emergencies: If at any time you feel your situation is an emergency, please call 911 immediately. . Non-Emergent Contact Non-Emergency issues call your: Primary Care Provider Call Non-Emergent contact if: you have any medication questions . 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 "Provider Documentation" section prepared by Johann Bishop. . VTE Core Measure Inpt VTE Proph given/why not?: SCD's, Contraindicated (BRUISING)
--- NOTE | 2016-11-04 12:29 | Discharge Summary ---
Discharge Summary Date of Service November 04, 2016. Discharge Summary Admission Date: Nov 02, 2016 at 12:45 Discharge Date: November 04, 2016 Discharge Disposition: Home Principal Diagnosis: CHEST PAIN, ACUTE CORONARY SYNDROME RULED OUT possibly secondary to Hypertensive Urgency Secondary Diagnoses/Problems: Please refer to hospital course below. Procedures: s/p STRESS TEST Consultations: SKIRT CLIPPER DR. CUMMINGS Pending Studies/Follow-Up: Monitor BP (re: hypertension, possibly from Myrbetriq); Please refer to hospital course below for further details. Medication Reconciliation Continued Medications: Acetaminophen (Tylenol) 325 Mg Tab 650 MG PO Q6H PRN for Pain, TAB Allopurinol (Zyloprim) 300 Mg Tab 1 TAB PO DAILY Calcium Citrate-Vitamin D (Citracal + D3 Maximum) 1 Tab Tab 3 TABS PO QAM Cyanocobalamin (Cyanocobalamin) 1,000 Mcg/Ml Inj 1 ML INJ MONTHLY, #1 Estrogens, Conjugated (Premarin) 14 Appln/30 Gm Cr #30 INSERT 0.5G INTO THE VAGINA AT BEDTIME TWICE A WEEK AT BEDTIME NEEDED Furosemide (Lasix) 20 Mg Tab 1 TAB PO DAILY PRN for edema, TAB 1 Refill Ibrutinib (Imbruvica) 140 Mg Cap 420 MG PO DAILY Lorazepam (Ativan) 0.5 Mg Tab 0.5 MG PO TID for Anxiety/Agitation, TAB Multivitamin (Multivitamin) Tab 1 TAB PO DAILY, TAB Prednisone Tab (Prednisone) 10 Mg Tab 10 MG PO DAILY, TAB Tramadol (Ultram) 50 Mg Tab 50 MG PO Q4H PRN for Pain, TAB Discontinued Medications: Mirabegron (Myrbetriq Er) 25 Mg Tab 2 TAB PO DAILY, #30 Admission Information HPI (per Admitting provider): 81 YO female followed by Dr. Tita Garcia for Internal Medicine and Dr. Turner for Hematology / Oncology. History of CLL, dyslipidemia, and other problems noted below. BP's high at times, but usually OK and has not required treatment for hypertension. Gardening yesterday. Developed mild left sided chest pressure afterwards. [place] tired. No SOB, diaphoresis, nausea, vomiting. Symptoms resolved with rest. 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 Developed left sided chest pressure, more severe than yesterday. Pain did not radiate and was not pleuritic in nature. No associated dyspnea, palpitations, nausea, vomiting. Came to ED. Still had some chest discomfort upon arrival. Received SL nitroglycerin with relief of CP. Pain-free at time of my assessment. . Physical Exam (per Admitting): General Appearance: WD/WN, no apparent distress Head: normocephalic, atraumatic Eyes: normal inspection, PERRL, EOMI, sclerae normal, + pertinent finding ( conjunctivae pink) ENT: normal ENT inspection, hearing grossly normal (with hearing aide), pharynx normal, + pertinent finding (dentition fair; multiple caries) Neck: supple, thyroid normal, no JVD, trachea midline Respiratory/Chest: lungs clear, no respiratory distress, no accessory muscle use Cardiovascular: regular rate, rhythm, no edema, no gallop, no JVD, no murmur , normal peripheral pulses Abdomen/GI: normal bowel sounds, non tender, soft, no organomegaly, no pulsatile mass Extremities/Musculoskelatal: normal inspection, no calf tenderness, normal capillary refill, no pedal edema Neurologic/Psych: director of emergency nursing II-XII nml as tested (PERRL, EOMI, no facial palsy, no dysarthria), no motor/sensory deficits (strength upper and lower extremies intact), normal mood/affect, normal reflexes (patellar reflexes 2/2 bilat), oriented x 3 Skin: normal color, warm/dry, no rash, + pertinent finding (multiple ecchymoses, multiple seborrheic keratoses, several lesions with shallow ulceration from recent cryotherapy) Lymphatic: + axillary node abnormality (cervical / supraclavicular) Hospital Course 81 year old female with history of CLL, HLD, presenting with chest pain. CHEST PAIN, ACUTE CORONARY SYNDROME RULED OUT possibly secondary to Hypertensive Urgency --presented with chest pain on moderate exertion over last 2 days prior to admission; relieved by Nitro at the ER -- cardiac markers negative x 3 ekg no signs of acute ischemia s/p stress test 11/04/[address] Cummings: NEGATIVE for ischemia -- no recurrence of chest pain, improved overall -- evaluated by Dr. Cummings- Cardiology, cleared for discharge no further medications changes except to stop Myrbetriq HYPERTENSION -- patient noted increase in BP trend after starting Myrbetriq has not taken Myrbetriq since prior to admission -- BP improving since admission- from systolic 170s to 130s-140s asymptomatic -- monitor BP as outpatient DYSLIPIDEMIA LDL 79 HDL 63 TG 136 -- monitor as outpatient CLL WBC 35,150 compared to 46,250 on 10/18/16. Plts 121,000 compared to 133,000 on 10/18/16. Hgb 11.1 compared to 10.3 on 10/18/16. Continue ibrutinib and prednisone. -- follows with Dr. Turner, ff up on Friday MICROSCOPIC HEMATURIA Undergoing outpatient evaluation. DISPOSITION d/c home Internal Medicine follow-up with Dr. Tita Garcia next week. Hematology / Oncology follow-up with Dr. Turner this coming Friday. . Total time spent on discharge = 30 minutes This includes examination of the patient, discharge planning, medication reconciliation, and communication with other providers. Discharge Instructions Discharge Instructions Date of Service November 04, 2016. Admission Reason for Admission: Chest Pain Discharge Discharge Diagnosis / Problem: CHEST PAIN Discharge Goals Goal(s): Diagnostic testing, Therapeutic intervention Activity Recommendations Activity Limitations: as noted below (NO HEAVY EXERTION UNTIL RE-EVALUATED BY PRIMARY CARE PHYSICIAN) . Instructions / Follow-Up Instructions / Follow-Up DISCONTINUE MYRBETRIQ. CALL PRIMARY CARE PHYSICIAN OR RETURN TO ER IMMEDIATELY IF WITH RECURRENCE OF SYMPTOMS, SHORTNESS OF BREATH, WEAKNESS, HEADACHE, DIZZINESS. FOLLOW UP WITH DR. TURNER SCHEDULED THIS WEEK. FOLLOW UP WITH DR. GARCIA ON NOVEMBER 11, 2016 AT 10:45 AM. Current Hospital Diet Patient's current hospital diet: AHA Diet (Heart Healthy) Discharge Diet Recommended Diet: AHA Diet (Heart Healthy) Procedures Procedures Performed: STRESS TEST Pending Studies Studies pending at discharge: no Laboratory Results Lipid Panel Test 11/03/16 05:08 Range/Units Triglycerides Level 136 0-150 mg/dl Cholesterol Level 169 0-200 mg/dl HDL Cholesterol 63 mg/dl Cholesterol/HDL Ratio 2.7 LDL Cholesterol, Calculated 79 mg/dl Medical Emergencies . Who to Call and When: Medical Emergencies: If at any time you feel your situation is an emergency, please call 911 immediately. . Non-Emergent Contact Non-Emergency issues call your: Primary Care Provider Call Non-Emergent contact if: you have any medication questions . 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 "Provider Documentation" section prepared by Johann Bishop. . VTE Core Measure Inpt VTE Proph given/why not?: SCD's, Contraindicated (BRUISING)
[2016-11-04 12:37] VITALS: BP 141/82; PULSE 84; TEMP 36.6; O2SAT 97
--- NOTE | 2016-11-04 15:01 | DOBUTAMINE ECHO ---
*NOTICE TO RECEIVING DEMOCRAT AGENCY This information is strictly Confidential and protected under [place] law. [place] law prohibits you from making any further disclosure of this information unless further disclosure is expressly permitted by the written consent of the person to whom it pertains or is authorized by law. A general authorization for the release of medical or other information is not sufficient for this purpose. Hospital accepts no responsibility if the information is made available to any other person, INCLUDING THE PATIENT. Interpretation Summary * Name: TONY DOYLE Study Date: 11/04/2016 08:48 AM BP: 153/61 mmHg * Patient Location: .2E\S\E205\S\1 HR: 81 * : 1935 (M/d/yyyy) Gender: Female Height: 65 in * Age: 81 yrs Ethnicity: CA Weight: 138 lb * Ordering Physician: Sudhir Cummings * Referring Physician: Self, Referred * Performed By: Araceli Whalen RDCS * * Reason For Study: Chest pain * BSA: 1.7 m2 * STRESS STUDY: Normal pharmacologic stress echocardiogram. No echocardiographic or ECG evidence of myocardial ischemia having achieved heart rate adequate for diagnostic purposes. * -- Conclusions -- * STRESS STUDY: Normal pharmacologic stress echocardiogram. No echocardiographic or ECG evidence of myocardial ischemia having achieved heart rate adequate for diagnostic purposes. Procedure Details * DOBUTAMINE ECHO, CPT#63921 * ECHO DOPPLER, CPT #[id number] * ECHO COLOR FLOW, CPT #[id number] Left Ventricle * The left ventricle is normal in size. * There is normal left ventricular wall thickness. * Ejection Fraction = >70 %. * The left ventricular wall motion is normal. Right Ventricle * The right ventricular systolic function is normal. Atria * The left atrial size is normal. * Right atrial size is normal. * The interatrial septum is intact with no evidence for an atrial septal defect. Mitral Valve * The mitral valve is normal in structure and function. Tricuspid Valve * The tricuspid valve is normal in structure and function. Aortic Valve * The aortic valve is normal in structure and function. Pulmonic Valve * The pulmonic valve is not well visualized. Great Vessels * The aortic root and proximal ascending aorta are normal sized. Pericardium * There is no pericardial effusion. Stress Parameters * Normal baseline electrocardiogram. * The stress ECG response was normal * Stress ECG: No ST changes. No arrhythmias. * The stress portion of this study was personally supervised by the undersigned interpreting physician. * Rest heart rate was '81' BPM. * Rest blood pressure was '153/61' * Maximum heart rate achieved was 131 bpm. * Maximum heart rate was 92 % of maximum age-predicted heart rate. * Maximum blood pressure was '196/65' * Maximum Dobutamine infusion rate was '30' mcg/kg/min. * Dobutamine infusion was terminated due to achieving target heart rate * A total of 5 mg of IV Metoprolol was administered to reverse Dobutamine-induced tachycardia. * The patient did not exhibit any symptoms during drug infusion. MMode 2D Measurements and Calculations IVSd 1.0 cm LVIDd 3.2 cm LVIDs 2.1 cm LVPWd 1.0 cm IVS/LVPW 0.99 FS 34.1 % EDV(Teich) 40.6 ml ESV(Teich) 14.4 ml EF(Teich) 64.5 % EDV(cubed) 32.4 ml ESV(cubed) 9.3 ml EF(cubed) 71.4 % LV mass(C)d 91.9 grams LV mass(C)dI 54.4 grams/m\S\2 SV(Teich) 26.2 ml SI(Teich) 15.5 ml/m\S\2 SV(cubed) 23.1 ml SI(cubed) 13.7 ml/m\S\2 Ao root diam 3.2 cm Ao root area 8.2 cm\S\2 ACS 1.4 cm LA dimension 2.7 cm asc Aorta Diam 3.5 cm LA/Ao 0.84 LVAd ap4 19.2 cm\S\2 LVLd ap4 7.2 cm EDV(MOD-sp4) 42.7 ml EDV(sp4-el) 43.7 ml LVAs ap4 8.2 cm\S\2 LVLs ap4 5.7 cm ESV(MOD-sp4) 10.8 ml ESV(sp4-el) 10.1 ml EF(MOD-sp4) 74.8 % EF(sp4-el) 76.9 % LVAd ap2 16.8 cm\S\2 LVLd ap2 6.7 cm EDV(MOD-sp2) 35.1 ml EDV(sp2-el) 36.0 ml LVAs ap2 7.8 cm\S\2 LVLs ap2 5.0 cm ESV(MOD-sp2) 10.1 ml ESV(sp2-el) 10.2 ml EF(MOD-sp2) 71.3 % EF(sp2-el) 71.5 % LVLd %diff -7.35 % EDV(MOD-bp) 40.4 ml LVLs %diff -14.87 % ESV(MOD-bp) 11.0 ml EF(MOD-bp) 72.8 % SV(MOD-sp4) 32.0 ml SI(MOD-sp4) 18.9 ml/m\S\2 SV(MOD-sp2) 25.0 ml SI(MOD-sp2) 14.8 ml/m\S\2 SV(MOD-bp) 29.4 ml SI(MOD-bp) 17.4 ml/m\S\2 SV(sp4-el) 33.6 ml SI(sp4-el) 19.9 ml/m\S\2 SV(sp2-el) 25.7 ml SI(sp2-el) 15.2 ml/m\S\2 Doppler Measurements and Calculations MV E max xi 51.3 cm/sec MV A max xi 89.8 cm/sec MV E/A 0.57 MV dec time 0.20 sec Ao V2 max 121.6 cm/sec Ao max PG 5.9 mmHg Ao max PG (full) 0.81 mmHg AI max xi 174.5 cm/sec AI max PG 12.2 mmHg AI dec slope 85.4 cm/sec\S\2 AI P1/2t 598.8 msec LV V1 max PG 5.1 mmHg LV V1 max 113.0 cm/sec PA V2 max 73.9 cm/sec PA max PG 2.2 mmHg PA acc slope 386.0 cm/sec\S\2 PA acc time 0.14 sec PI max xi 185.2 cm/sec PI max PG 13.7 mmHg PI dec slope 135.9 cm/sec\S\2 PI P1/2t 399.0 msec TR max xi 212.3 cm/sec PA pr(Accel) 15.6 mmHg
== END 2016-11-04 13:30 | disposition home or self-care (01) ==
LOC: ENRESERVTM → ENRESERVDT → C.EDB 11:02 → C.2E 12:45
PROVIDERS: ADMIT Hospitalist; ATTEND Internal Medicine
DX: R07.89 Other chest pain (principal); C91.10 Chronic lymphocytic leukemia of B-cell type not having achieved remission; R03.0 Elevated blood-pressure reading, without diagnosis of hypertension; E78.5 Hyperlipidemia, unspecified; K21.9 Gastro-esophageal reflux disease without esophagitis; M19.90 Unspecified osteoarthritis, unspecified site; M81.0 Age-related osteoporosis without current pathological fracture; Z87.01 Personal history of pneumonia (recurrent); Z85.89 Personal history of malignant neoplasm of other organs and systems; Z92.241 Personal history of systemic steroid therapy; Z85.820 Personal history of malignant melanoma of skin; Z86.2 Personal history of diseases of the blood and blood-forming organs and certain disorders involving the immune mechanism; Z90.710 Acquired absence of both cervix and uterus; Z98.49 Cataract extraction status, unspecified eye; Z82.3 Family history of stroke; Z83.3 Family history of diabetes mellitus; Z79.899 Other long term (current) drug therapy

== ENCOUNTER → 2016-11-19 | Outpatient (CLI) | payer OTHER, MEDICARE ==
[2015-11-22 13:24] VITALS: BP 117/67; PULSE 99
[~2016-11-19] MED LIST changes: -CITA10TA4 PO; -CYAN3INJ IM; +CYNI1000 INJ; +PRMVC
[2016-11-19 13:10] VITALS: BP_SYST 119; BP_SYST 149; BP_DIAS 67; BP_DIAS 79; PULSE 84; TEMP 36.7; O2SAT 96
--- NOTE | 2016-11-19 17:29 | Radiation Oncology Follow-Up ---
Radiation Oncology Follow-Up Date of Visit November 19, 2016. 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 Adams is a 80-year-old female who was diagnosed with CLL in 1983. At that time she underwent a hysterectomy and as part of her blood work up was noted to have blood changes consistent with a CLL. She was told at that time that she just needed to be followed and in fact was followed for many years. Ultimately, she transferred her care to Dr. Mills at which time she had required no treatment. He states that she has had one and possibly two short episodes of treatment, but does not remember the medication that she was given for a few months. The patient had been feeling well when she noted discomfort in the left tonsillar region. She was seen by her PCP and noted a mass in the left tonsillar region. A CT scan of the neck was ordered on December 03. An ill- defined soft tissue density is noted at the level of the base of tongue causing slight asymmetric narrowing of the oropharynx on the left. Aside from lymphadenopathy the parotid, conditioner tumbler operator, and submandibular spaces are unremarkable. The visceral spaces including epiglottis, supraglottis glottis and glottic and subglottic regions are unremarkable. Diffuse lymphadenopathy is noted within the neck, supraclavicular regions and axilla compatible with reported history of chronic lymphocytic leukemia. Hypodense nodules are noted within the right thyroid lobe. With these findings, the patient was sent for evaluation to Dr. Osman who saw the patient on December 05. His visual impression was that of a +2 left without erythema or exudate. The patient had difficulty with a mirror exam and therefore performed a fiberoptic examination of the larynx and the nasopharynx was without masses or lesions. The vocal cord mobility was normal without paralysis or paresis. No other significant edema or erythema of the larynx was noted. No vocal cord masses were appreciated and no lesions in the post cricoid or piriform sinus region. He proceeded with a biopsy of the left superior tonsil. 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 Further staging workup including lab studies showed a markedly elevated white count at 134.61, RBCs 3.33, hemoglobin 10.6, hematocrit 35.4 and a platelet count of 59,000. Dr. Mills ordered a completion staging with a CT scan of the chest, abdomen,and pelvis performed on December 19. This confirmed the supraclavicular, right hilar and some subpectoral/axillary and pelvic lymphadenopathy. Also noted was splenomegaly all consistent with lymphoma. Pleural-based 0.6 cm pulmonary nodule was noted with recommended followup CT scan in 6 months. An age-indeterminate L3 and L4 compression deformity. The above lymph nodes are in the range of 1-1.[address] Mills was looking for whether her disease was progressive distantly or just in the tonsil. With these findings of only significant for tonsillar disease he felt the patient would be best served by involved field external beam therapy. She was treated from 01/14/2012 to 02/28/2012 and received 4500 cGy. She did have significant mucositis and pharyngitis from treatment and the radiation dose was changed for better tolerance. Interim History Ms. Adams is doing well overall. She continues to follow with Dr. Mills carefully. She is being treated with Ibrutinib for her CLL and is doing well overall. She denies any fevers, chills or night sweats. She denies any significant weight loss. She denies any xerostomia, loss of taste sensation, difficulty swallowing or dysphagia. She has no difficulty with voice quality overall. She states that her blood work continues to be routine with Dr. Mills. Otherwise she has no complaints. Allergies Coded Allergies: Cephalosporins (Verified Allergy, Unknown, 06/27/16) Nitrofurantoin (Verified Allergy, Unknown, 06/27/16) Oxaprozin (Verified Allergy, Unknown, 06/27/16) Oxybutynin (Verified Allergy, Unknown, 06/27/16) Home Medications Scheduled Allopurinol (Zyloprim), 1 TAB PO DAILY Calcium Citrate-Vitamin D (Citracal + D3 Maximum), 3 TABS PO QAM Cyanocobalamin (Cyanocobalamin), 1 ML INJ MONTHLY Ibrutinib (Imbruvica), 420 MG PO DAILY Lorazepam (Ativan), 0.5 MG PO TID Multivitamin (Multivitamin), 1 TAB PO DAILY Prednisone Tab (Prednisone), 10 MG PO DAILY Scheduled PRN Acetaminophen (Tylenol), 650 MG PO Q6H PRN for Pain Furosemide (Lasix), 1 TAB PO DAILY PRN for edema Tramadol (Ultram), 50 MG PO Q4H PRN for Pain Miscellaneous Medications Estrogens, Conjugated (Premarin) Review of Systems Gastrointestinal: Symptoms: WNL Oral: Symptoms: No Problems Other Oral Symptoms: No residual effects from her radiation treatments; Respiratory: Symptoms: SOB With Exertion Respiratory Comments: occasional chronic cough sometimes productive for clear mucus Other Respiratory: Relates this to weight gain; Urinary: Symptoms: WNL Comments: wears pad for urinary leakage Skin: Other Skin Symptoms: Multiple bruises over body along w/skin discoloration Physical Exam Vital Signs Date Time Temp Pulse Resp B/P Pulse Ox O2 Delivery O2 Flow Rate FiO2 11/19/16 13:10 36.7 84 20 149/79 96 119/67 Pain: Pain Onset: 2 months Pain Duration: intermet Pain Location: tongue Patient Pain Scale: 0 - 10 Initial Pain Intensity: 0.0 Pain Description: Soreness Additional Comments: had bx tongue fungus per patient General Appearance: WD/WN, no apparent distress Eyes: normal inspection, PERRL, EOMI ENT: normal ENT inspection, hearing grossly normal, TMs normal, pharynx normal Neck: supple, no adenopathy Respiratory/Chest: chest non-tender, lungs clear, normal breath sounds, no respiratory distress Cardiovascular: regular rate, rhythm, no edema, no gallop, no JVD Abdomen: normal bowel sounds, soft, no organomegaly Lymphatic: no adenopathy Laboratory Studies Test 11/02/16 11:25 11/02/16 19:03 11/03/16 05:08 White Blood Count 35.15 K/uL (4.8-10.8) Red Blood Count 4.21 M/uL (4.2-5.4) Hemoglobin 11.1 g/dL (12.0-16.0) Hematocrit 36.5 % (37-47) Mean Corpuscular Volume 86.7 fL (80-100) Mean Corpuscular Hemoglobin 26.4 pg (25-34) Mean Corpuscular Hemoglobin Concent 30.4 g/dl (32-36) Platelet Count 121 K/uL (130-400) Mean Platelet Volume 9.9 fL (7.4-10.4) Neutrophils (%) (Auto) 5.8 % Lymphocytes (%) (Auto) 92.7 % Monocytes (%) (Auto) 1.2 % Eosinophils (%) (Auto) 0.0 % Basophils (%) (Auto) 0.2 % Neutrophils # (Auto) 2.04 K/uL (1.4-6.5) Lymphocytes # (Auto) 32.59 K/uL (1.2-3.4) Monocytes # (Auto) 0.43 K/uL (0.11-0.59) Eosinophils # (Auto) 0.01 K/uL (0-0.5) Basophils # (Auto) 0.06 K/uL (0-0.2) RDW Standard Deviation 48.1 fL (36.4-46.3) RDW Coefficient of Variation 15.1 % (11.5-14.5) Immature Granulocyte % (Auto) 0.1 % Immature Granulocyte # (Auto) 0.02 K/uL (0.00-0.02) Smudge Cells PRESENT Sodium Level 141 mmol/L (136-145) Potassium Level 4.4 mmol/L (3.5-5.1) Chloride Level 104 mmol/L (98-107) Carbon Dioxide Level 29 mmol/L (21-32) Anion Gap 8.0 mmol/L (3-11) Blood Urea Nitrogen 30 mg/dl (7-18) Creatinine 0.95 mg/dl (0.60-1.20) Est Creatinine Clear Calc Drug Dose 44.9 ml/min Estimated GFR () 66.0 Estimated GFR (Non- 57.0 BUN/Creatinine Ratio 31.4 (10-20) Random Glucose 107 mg/dl (70-99) Calcium Level 9.0 mg/dl (8.5-10.1) Total Creatine Kinase 28 U/L (26-192) Creatine Kinase MB 0.5 ng/ml (0.5-3.6) Creatine Kinase MB Ratio 1.8 (0-3.0) Troponin I 0.021 ng/ml (0-0.045) 0.020 ng/ml (0-0.045) Triglycerides Level 136 mg/dl (0-150) Cholesterol Level 169 mg/dl (0-200) HDL Cholesterol 63 mg/dl LDL Cholesterol, Calculated 79 mg/dl VLDL Cholesterol, Calculated 27 mg/dl Cholesterol/HDL Ratio 2.7 Assessment & Plan Ms. Adams is a 81-year-old female who presents with a history of CLL that was initially diagnosed in 1983. She was treated for a left tonsillar mass that was biopsy proven with external beam radiation therapy in February 2012. She continues to undergo systemic therapy with Dr. Mills and is doing well overall. Her blood work continues to be normal and Dr. Mills continues to order her blood work for her. She has no recent staging scans. Dr. Mills continues to see her every 3 months with a repeat CBC. At this point, the patient would like to only be followed by Dr. Mills and her primary care physician. Given the fact that she did finish radiation therapy over 5 years ago, we feel it is reasonable that she can follow with Dr. Mills alone for her CLL. We have encouraged her to call us if she has any questions or concerns or if she would like to be seen again. Total Time In Follow-Up I spent 20 minutes examining and counseling the patient. I spent 15 minutes completing this note. Copy To Tita Garcia M.D.; Riley Mills M.D.
== END | disposition home or self-care (01) ==
LOC: C.ONC 13:00
PROVIDERS: ATTEND Physician Assistant Medical
DX: Z08 Encounter for follow-up examination after completed treatment for malignant neoplasm (principal); Z92.3 Personal history of irradiation; Z85.810 Personal history of malignant neoplasm of tongue

== ENCOUNTER → 2017-06-09 | Outpatient (CLI) | payer OTHER, MEDICARE ==
--- NOTE | 2017-06-09 12:13 | DIAGNOSTIC IMAGING REPORT ---
CHEST-PA,LAT AND OBLIQUE VIEWS HISTORY: 81 years-old Female COUGH acute cough with right-sided chest pain COMPARISON: Chest radiograph 05/06/2017, CTA of the chest 06/27/2016 TECHNIQUE: PA view of the chest with lateral and bilateral oblique views FINDINGS: Cardiac silhouette is upper limits of normal, unchanged. Lungs are mildly hyperinflated. There is moderate atherosclerosis of the aorta. Mild biapical pleural-parenchymal scarring without pneumothorax, pleural effusion, focal airspace consolidation or overt pulmonary edema. Parenchymal calcifications of the bilateral breasts are redemonstrated. The bones appear mildly demineralized. Remote appearing fracture of the posterior lateral aspect right seventh rib is noted. Probable rotator cuff calcific tendinosis of the bilateral shoulders. IMPRESSION: 1. No acute cardiopulmonary process. 2. Parenchymal calcifications of the bilateral breasts redemonstrated. The above report was generated using voice recognition software. It may contain grammatical, syntax or spelling errors. Electronically signed by: Noel Petit M.D. 06/09/2017 12:12 PM Dictated Date/Time: 06/09/2017 12:10 PM
== END | disposition home or self-care (01) ==
LOC: C.RAD1850 11:34
PROVIDERS: ATTEND Physician Assistant
DX: R05 Cough (principal)

== ENCOUNTER 2017-07-15 18:02 | Inpatient (IN) | payer OTHER, MEDICARE ==
[~2017-07-15] VITALS: Ht 170.2 cm; Wt 70.0 kg
[~2017-07-15 18:02] MED LIST changes: +METO25TA3 PO
[2017-07-15] MEDS ORDERED: FENTANYL CITRATE INJ 50 MCG/1 ML 2 ML VIAL IV ONE (18:30)
[2017-07-15 18:57] LABS: CALCIUM 8.7 mg/dl (8.5-10.1); CREATININE 1.1 mg/dl (0.60-1.20); POTASSIUM 4.1 mmol/L (3.5-5.1)
--- NOTE | 2017-07-15 19:02 | EMERGENCY ROOM VISIT NOTE ---
History First contact with patient: 18:07 Chief Complaint: FALL Stated Complaint: FALL, R RIB PAIN, BILAT. ARM PAIN History of Present Illness The patient is a 81 year old female who presents to the Emergency Room with complaints of a mechanical fall prior to arrival. The patient was bending over to plug in her cell phone when she lost her balance falling forward area she tried to catch herself with both of her hands landing on the floor. She does not think that she hit her head. She denies any headache or neck pain. She is experiencing pain in her upper arms bilaterally. She is also complaining of right sided rib pain. She denies any shortness of breath. No abdominal pain. She denies any back pain or hip pain. She did also landed on her right knee and notes a bruise. She had fentanyl in route with good pain relief. Review of Systems 10 system review performed and negative unless noted in HPI or below Past Medical/Surgical History Medical Problems: (1) Chronic lymphocytic leukemia (2) Chronic steroid use (3) Diverticulosis of colon (4) Dyslipidemia (5) GERD (gastroesophageal reflux disease) (6) History of squamous cell carcinoma (7) Hypogammaglobulinemia, acquired (8) Osteoarthritis (9) Osteoporosis Surgical Problems: (1) Status post cataract extraction (2) Status post hysterectomy Family History Brain aneurysm MOTHER Cancer BROTHER Diabetes mellitus GRANDMOTHER Heart disease FATHER Social History Smoking Status: Never Smoker Alcohol Use: none Drug Use: none Marital Status: Housing Status: lives with family Occupation Status: retired Current/Historical Medications Scheduled Calcium Citrate-Vitamin D (Citracal + D3 Maximum), 3 TABS PO QAM Ciprofloxacin (Ciprofloxacin HCl), 500 MG PO BID Citalopram Hydrobromide (Citalopram Hydrobromide), 10 MG PO DAILY Cyanocobalamin (Vitamin B-12), 1,000 MCG SQ MONTHLY Ibrutinib (Imbruvica), 420 MG PO DAILY Ipratropium-Albuterol (Duoneb), 1 TREATMENT INH Q4H Melatonin (Melatonin Cr), 3 MG PO HS Multivitamin (Multivitamin), 1 TAB PO DAILY Zhxskdex-Pwiflmsnq-Qx Otic (Cortisporin Otic), DROPS OP 3XWK Prednisone Tab (Prednisone), 10 MG PO DAILY Scheduled PRN Acetaminophen (Tylenol), 650 MG PO Q6H PRN for Pain Dextromethorphan-Guaifenesin (Mucinex Dm), 1 TAB PO Q12 PRN for CONGESTION Furosemide (Furosemide), 20 MG PO WK PRN for LEG SWELLING Guaifenesin Ext Rel (Mucinex Ext Rel), 600 MG PO Q12 PRN for Lorazepam (Lorazepam), 0.5 MG PO Q4 PRN for Anxiety Tramadol (Ultram), 50 MG PO Q4H PRN for Pain Miscellaneous Medications Estrogens, Conjugated (Premarin) Physical Exam Vital Signs Date Time Temp Pulse Resp B/P (MAP) Pulse Ox O2 Delivery O2 Flow Rate FiO2 07/15/17 22:20 78 18 106/58 96 Room Air 07/15/17 20:47 84 22 121/67 99 Room Air 07/15/17 18:13 36.7 82 22 177/90 100 Room Air Physical Exam VITALS: Vitals are noted on the nurse's note and reviewed by myself. Vital signs stable. GENERAL: 81-year-old female, mildly uncomfortable,, in no acute distress, nondiaphoretic, well-developed well-nourished. SKIN: Ecchymosis noted to the right knee. Small skin tear noted to the left upper arm.. HEAD: Normocephalic atraumatic. EARS: External auditory canals clear, tympanic membranes pearly mantilla without erythema or effusion bilaterally. EYES: Pupils equal round and reactive to light and accommodation. Conjunctivae without injection, sclerae without icterus. Extraocular movements intact. MOUTH: Mucous membranes moist. Tonsils are not enlarged. Pharynx without erythema or exudate. Uvula midline. Airway patent. Tongue does not deviate. NECK: Supple without nuchal rigidity. Cervical spine is nontender. No JVD. HEART: Regular rate and rhythm without murmurs gallops or rubs. Tenderness to palpation over the right lateral lower ribs. No crepitus. LUNGS: Clear to auscultation bilaterally without wheezes, rales or rhonchi. No accessory muscle use. ABDOMEN: Positive bowel sounds x 4.Soft, nontender, without organomegaly. No guarding or rebound tenderness. MUSCULOSKELETAL: Significant contusion over the right knee. Full range of motion of both knees. Tenderness to palpation over the right proximal humerus. Pain with any range of motion of the right shoulder. Tenderness to palpation also over the left lateral humerus. Pain with any range of motion of the left shoulder also noted. Pain extends into the elbows bilaterally. Pain with any flexion and extension of the elbows bilaterally. Radial pulse +2 bilaterally. [employer] strength 5/5. NEURO: Patient was alert and oriented to person place and time. Normal sensation to touch. No focal neurological deficits. Medical Decision & Procedures ER Provider Diagnostic Interpretation: Patient Name: TONY DOYLE Unit Number: [id number] Dictated: 07/15/172015 Transcribed: 07/15/172015 ARG Printed Date/Time: [~ rep prt dt]/[~ rep prt tm] [~ rep ct labl] - [~ rep ct ivnm] [facility] Radiology Department [place], [place] [address] Dictated: 07/15/172015 Transcribed: 07/15/172015 ARG Printed Date/Time: [~ rep prt dt]/[~ rep prt tm] [~ rep ct labl] - [~ rep ct ivnm] IMPRESSION: Comminuted fracture dislocation of the humeral head and neck. Electronically signed by: González Navarro M.D. 07/15/2017 8:17 PM Dictated Date/Time: 07/15/2017 8:16 PM The status of this report is Signed. Draft = Not yet reviewed or approved by Radiologist. Signed = Reviewed and approved by Radiologist. <AttendingPhy></AttendingPhy> <FamilyPhy>Tita Garcia M.D.</FamilyPhy> < PrimaryPhy>Tita Garcia M.D.</PrimaryPhy> <UnitNumber>[id number]</UnitNumber > <VisitNumber>[id number]</VisitNumber> <PatientName>TONY DOYLE</ PatientName> <DateOfBirth>1935</DateOfBirth> <Location>[facility]</Location> < ServiceDate>07/15/17</ServiceDate> <MNE>ESINDI</MNE> <OrderingPhy>Marcia Rose PA-C</OrderingPhy> <OrderingPhyMNE>f rep ord dr randolph</OrderingPhyMNE> < DictatingPhyMNE>f rep dict dr randolph</DictatingPhyMNE> <CCListMNE>f rep ct mne</ CCListMNE> <AdmittingPhyMNE>f pt admit dr randolph</AdmittingPhyMNE> <AttendingPhyMNE >f pt attend dr randolph</AttendingPhyMNE> <ConsultingPhyMNE>f pt consult dr randolph</ConsultingPhyMNE> <FamilyPhyMNE>f pt fam dr randolph</FamilyPhyMNE> <OtherPhyMNE>f pt other dr randolph</OtherPhyMNE> < PrimaryPhyMNE>f pt prim care dr randolph</PrimaryPhyMNE> <ReferringPhyMNE>f pt referring dr randolph</ReferringPhyMNE> bilateral ribs IMPRESSION: 1. Fracture dislocation the proximal right humerus 2. Fracture the proximal left humerus 3. Old right seventh rib fracture. No acute rib fractures identified 4. No evidence of pneumothorax Electronically signed by: González Navarro M.D. 07/15/2017 8:25 PM Dictated Date/Time: 07/15/2017 8:23 PM The status of this report is Signed. Draft = Not yet reviewed or approved by Radiologist. Signed = Reviewed and approved by Radiologist. L elbow xrays IMPRESSION: No fractures or dislocations identified. Electronically signed by: González Navarro M.D. 07/15/2017 8:22 PM Dictated Date/Time: 07/15/2017 8:22 PM The status of this report is Signed. Draft = Not yet reviewed or approved by Radiologist. Signed = Reviewed and approved by Radiologist. <AttendingPhy></AttendingPhy> <FamilyPhy>Tita Garcia M.D.</FamilyPhy> < PrimaryPhy>Tita Garcia M.D.</PrimaryPhy> <UnitNumber>[id number]</UnitNumber > <VisitNumber>[id number]</VisitNumber> <PatientName>VIVEK Davis elbow xrays Patient Name: TONY DOYLE Unit Number: [id number] Dictated: 07/15/172018 Transcribed: 07/15/17 2019 ARG Printed Date/Time: [~ rep prt dt]/[~ rep prt tm] [~ rep ct labl] - [~ rep ct ivnm] [facility] [place] [address] Dictated: 07/15/172018 Transcribed: 07/15/172018 ARG Printed Date/Time: [~ rep prt dt]/[~ rep prt tm] [~ rep ct labl] - [~ rep ct ivnm] IMPRESSION: 1. No fractures or dislocations of the right elbow identified. 2. Age-indeterminate right rib fracture Electronically signed by: González Navarro M.D. 07/15/2017 8:20 PM Dictated Date/Time: 07/15/2017 8:19 PM The status of this report is Signed. Draft = Not yet reviewed or approved by Radiologist. Signed = Reviewed and approved by Radiologist. <AttendingPhy></AttendingPhy> <FamilyPhy>Tita Garcia M.D.</FamilyPhy> < PrimaryPhy>Tita Garcia M.D.</PrimaryPhy> <UnitNumber>[id number]</UnitNumber > <VisitNumber>[id number]</VisitNumber> <PatientName>TONY DOYLE</ PatientName> <DateOfBirth>1935</DateOfBirth> <Location>[facility]</Location> < ServiceDate>07/15/17</ServiceDate> <MNE>ESINDI</MNE> <OrderingPhy>Marcia Rose PA-C</OrderingPhy> <OrderingPhyMNE>f rep ord dr randolph</OrderingPhyMNE> < DictatingPhyMNE>f rep dict dr randolph</DictatingPhyMNE> <CCListMNE>f rep ct mne</ CCListMNE> <AdmittingPhyMNE>f pt admit dr randolph</AdmittingPhyMNE> <AttendingPhyMNE >f pt attend dr randolph</AttendingPhyMNE> <ConsultingPhyMNE>f pt consult dr randolph</ConsultingPhyMNE> <FamilyPhyMNE>f pt fam dr randolph</FamilyPhyMNE> <OtherPhyMNE>f pt other dr randolph</OtherPhyMNE> < PrimaryPhyMNE>f pt prim care dr randolph</PrimaryPhyMNE> <ReferringPhyMNE>f pt referring dr randolph</ReferringPhyMNE> L shoulder xrays IMPRESSION: Impacted humeral neck fracture. Electronically signed by: González Navarro M.D. 07/15/2017 8:21 PM Dictated Date/Time: 07/15/2017 8:21 PM The status of this report is Signed. Draft = Not yet reviewed or approved by Radiologist. Signed = Reviewed and approved by Radiologist. <AttendingPhy></AttendingPhy> <FamilyPhy>Tita Garcia M.D.</FamilyPhy> < PrimaryPhy>Tita Garcia M.D.</PrimaryPhy> <UnitNumber>[id number]</UnitNumber > <VisitNumber>[id number]</VisitNumber> <PatientName>TONY DOYLE</ PatientName> <DateOfBirth>1935</DateOfBirth> <Location>[facility]</Location> < ServiceDate>07/15/17</ServiceDate> <MNE>ESINDI</MNE> <OrderingPhy>Marcia Rose PA-C</OrderingPhy> <OrderingPhyMNE>f rep ord dr randolph</OrderingPhyMNE> < DictatingPhyMNE>f rep dict dr randolph</DictatingPhyMNE> <CCListMNE>f rep ct mne</ CCListMNE> <AdmittingPhyMNE>f pt admit dr randolph</AdmittingPhyMNE> <AttendingPhyMNE >f pt attend dr randolph</AttendingPhyMNE> <ConsultingPhyMNE>f pt consult dr randolph</ConsultingPhyMNE> <FamilyPhyMNE>f pt fam dr randolph</FamilyPhyMNE> <OtherPhyMNE>f pt other dr randolph</OtherPhyMNE> < PrimaryPhyMNE>f pt prim care dr randolph</PrimaryPhyMNE L knee xray Patient Name: TONY DOYLE Unit Number: [id number] Dictated: 07/15/172017 Transcribed: 07/15/17 2018 ARG Printed Date/Time: [~ rep prt dt]/[~ rep prt tm] [~ rep ct labl] - [~ rep ct ivnm] [facility] [place] [address] Dictated: 07/15/172017 Transcribed: 07/15/172017 ARG Printed Date/Time: [~ rep prt dt]/[~ rep prt tm] [~ rep ct labl] - [~ rep ct ivnm] IMPRESSION: Advanced osteoarthritic change. No acute fractures or dislocations. Electronically signed by: González Navarro M.D. 07/15/2017 8:18 PM Dictated Date/Time: 07/15/2017 8:18 PM The status of this report is Signed. Draft = Not yet reviewed or approved by Radiologist. Signed = Reviewed and approved by Radiologist. <AttendingPhy></AttendingPhy> <FamilyPhy>Tita Garcia M.D.</FamilyPhy> < PrimaryPhy>Tita Garcia M.D.</PrimaryPhy> <UnitNumber>[id number]</UnitNumber > <VisitNumber>[id number]</VisitNumber> <PatientName>TONY DOYLE</ PatientName> <DateOfBirth>1935</DateOfBirth> <Location>[facility]</Location> < ServiceDate>07/15/17</ServiceDate> <MNE>ESINDI</MNE> <OrderingPhy>Marcia Rose PA-C</OrderingPhy> <OrderingPhyMNE>f rep ord dr randolph</OrderingPhyMNE> < DictatingPhyMNE>f rep dict dr randolph</DictatingPhyMNE> <CCListMNE>f rep ct mne</ CCListMNE> <AdmittingPhyMNE>f pt admit dr randolph</AdmittingPhyMNE> <AttendingPhyMNE >f pt attend dr randolph</AttendingPhyMNE> <ConsultingPhyMNE>f pt consult dr randolph</ConsultingPhyMNE> <FamilyPhyMNE>f pt fam dr randolph</FamilyPhyMNE> <OtherPhyMNE>f pt other dr randolph</OtherPhyMNE> < PrimaryPhyMNE>f pt prim care dr randolph</PrimaryPhyMNE> <ReferringPhyMNE>f pt referring dr randolph</ReferringPhyMNE> R Knee x-rays IMPRESSION: Moderately advanced osteoarthritic change. No acute fractures or dislocations. Electronically signed by: González Navarro M.D. 07/15/2017 8:23 PM Dictated Date/Time: 07/15/2017 8:22 PM The status of this report is Signed. Draft = Not yet reviewed or approved by Radiologist. Signed = Reviewed and approved by Radiologist. Laboratory Results 07/15/17 18:15 Red Blood Count 4.21, Mean Corpuscular Volume 88.1, Mean Corpuscular Hemoglobin 28.7, Mean Corpuscular Hemoglobin Concent 32.6, Mean Platelet Volume 9.9, Neutrophils (%) (Auto) 37.3, Lymphocytes (%) (Auto) 59.4, Monocytes (%) (Auto) 2.9, Eosinophils (%) (Auto) 0.0, Basophils (%) (Auto) 0.2, Neutrophils # (Auto) 8.45, Lymphocytes # (Auto) 13.50, Monocytes # (Auto) 0.67, Eosinophils # (Auto) 0.01, Basophils # (Auto) 0.05 07/15/17 18:15 Test 07/15/17 18:15 White Blood Count 22.73 K/uL (4.8-10.8) Red Blood Count 4.21 M/uL (4.2-5.4) Hemoglobin 12.1 g/dL (12.0-16.0) Hematocrit 37.1 % (37-47) Mean Corpuscular Volume 88.1 fL (80-100) Mean Corpuscular Hemoglobin 28.7 pg (25-34) Mean Corpuscular Hemoglobin Concent 32.6 g/dl (32-36) Platelet Count 135 K/uL (130-400) Mean Platelet Volume 9.9 fL (7.4-10.4) Neutrophils (%) (Auto) 37.3 % Lymphocytes (%) (Auto) 59.4 % Monocytes (%) (Auto) 2.9 % Eosinophils (%) (Auto) 0.0 % Basophils (%) (Auto) 0.2 % Neutrophils # (Auto) 8.45 K/uL (1.4-6.5) Lymphocytes # (Auto) 13.50 K/uL (1.2-3.4) Monocytes # (Auto) 0.67 K/uL (0.11-0.59) Eosinophils # (Auto) 0.01 K/uL (0-0.5) Basophils # (Auto) 0.05 K/uL (0-0.2) RDW Standard Deviation 48.3 fL (36.4-46.3) RDW Coefficient of Variation 15.1 % (11.5-14.5) Immature Granulocyte % (Auto) 0.2 % Immature Granulocyte # (Auto) 0.05 K/uL (0.00-0.02) Smudge Cells PRESENT Anion Gap 8.0 mmol/L (3-11) Est Creatinine Clear Calc Drug Dose 40.3 ml/min Estimated GFR () 55.3 Estimated GFR (Non- 47.7 BUN/Creatinine Ratio 22.9 (10-20) Calcium Level 8.7 mg/dl (8.5-10.1) Medications Administered Medications (Trade) Dose Ordered Sig/Jazmine Route Start Time Stop Time Status Last Admin Dose Admin Fentanyl Citrate (Fentanyl Inj) 50 mcg NOW ONCE IV 07/15/17 18:30 07/15/17 18:32 DC 07/15/17 18:38 50 MCG Morphine Sulfate (MoRPHine SULFATE INJ) 2 mg Q2H PRN IV 07/15/17 20:45 07/29/17 20:44 07/15/17 20:49 2 MG Morphine Sulfate (MoRPHine SULFATE INJ) 1 mg NOW STAT IV 07/15/17 22:01 07/15/17 22:02 DC 07/15/17 22:13 1 MG ED Course Patient was seen and examined Vital signs including blood pressure were reviewed medications list was verified with patient Labs were obtained, and a saline lock was established The patient was medicated with fentanyl Imaging was performed and reviewed The patient was reassessed, and still complaining of pain. She was medicated with morphine. The case was discussed with Dr. Oh from orthopedics. The patient was put in bilateral arm slings. Neurovascular status was rechecked and intact. She did require an additional dose of morphine. The case was discussed with case management. It was then discussed with the [facility] hospitalist group, who has agreed to admit the patient overnight for pain control and further treatment. Medical Decision Differential diagnosis: Contusion, fracture, ligamentous injury, rib fracture, pneumothorax, hemothorax, skull fracture, traumatic brain injury, intracranial bleed This patient is a 81-year-old female that presents to the emergency department with a mechanical fall. On exam, she had significant pain in her upper extremities bilaterally. The patient unfortunately sustained bilateral humerus fractures. The right humerus fracture is comminuted and also dislocated. She is neurovascularly intact. The case was discussed with orthopedics. She will not be able to go home. She will need to be admitted for further workup and treatment-likely surgical intervention. This chart was completed in part utilizing [employer] Speech Voice Recognition software. Attempts were made to minimize the grammatical errors, random word insertions, pronoun errors and incomplete sentences. Any formal questions or concerns about the content, text or information contained within the body of this dictation should be directly addressed to the provider for clarification. Medication Reconcilliation Current Medication List: was personally reviewed by me Blood Pressure Screening Patient's blood pressure: Elevated blood pressure Blood pressure disposition: Elevated BP felt to be situational, Did not require urgent referral Impression Primary Impression: Bilateral proximal humeral fractures Departure Information Referrals Tita Garcia M.D. (PCP) Patient Instructions [facility]
[2017-07-15 19:11] LABS: BASO % 0.2 %; BASO ABS # 0.05 K/uL (0-0.2); EOS ABS # 0.01 K/uL (0-0.5); HEMATOCRIT 37.1 % (37-47); HEMOGLOBIN 12.1 g/dL (12.0-16.0); IG# 0.05 K/uL (0.00-0.02); LYMPH % 59.4 %; MEAN CELL VOLUME 88.1 fL (80-100); MEAN CORPUSCULAR HEMOGLOBIN 28.7 pg (25-34); MEAN CORPUSCULAR HGB CONC 32.6 g/dl (32-36); MEAN PLATELET VOLUME 9.9 fL (7.4-10.4); MONO % 2.9 %; MONO ABS # 0.67 K/uL (0.11-0.59); NEUT % 37.3 %; NEUT ABS # 8.45 K/uL (1.4-6.5); PLATELET COUNT 135 K/uL (130-400); RED CELL DISTRIBUTION WIDTH CV 15.1 % (11.5-14.5); RED CELL DISTRIBUTION WIDTH SD 48.3 fL (36.4-46.3); WHITE BLOOD COUNT 22.73 K/uL (4.8-10.8)
[2017-07-15] MEDS ORDERED: CYAN100048 SQ (19:13)
[2017-07-15] MEDS ORDERED: IPRASOL4 INH (19:13)
[2017-07-15] MEDS ORDERED: GFNSR600 PO (19:13)
[2017-07-15] MEDS ORDERED: DEXT30TA7 PO (19:13)
[2017-07-15] MEDS ORDERED: PRED10TA PO (19:13)
[2017-07-15] MEDS ORDERED: MELA3TAB25 PO (19:13)
[2017-07-15] MEDS ORDERED: LSX20 PO (19:13)
[2017-07-15] MEDS ORDERED: CITA10TA4 PO (19:13)
[2017-07-15] MEDS ORDERED: ATV5X PO (19:13)
[2017-07-15] MEDS ORDERED: CPR/500 PO (19:13)
[2017-07-15] MEDS ORDERED: NEOM1SUS21 OP (19:13)
--- NOTE | 2017-07-15 19:15 | DIAGNOSTIC IMAGING REPORT ---
CT HEAD WITHOUT CONTRAST (CT) CLINICAL HISTORY: Head pain status post trauma COMPARISON STUDY: 05-19 TECHNIQUE: Axial CT of the brain is performed from the vertex to the skull base. IV contrast was not administered for this examination. A dose lowering technique was utilized adhering to the principles of ALARA. CT DOSE: 663.41 mGy.cm FINDINGS: No intra or extra-axial mass lesions are visualized. There is no CT evidence of acute cortical infarction. There is no evidence of midline shift. There is no acute hemorrhage. No calvarial fractures are visualized. There are patchy white matter hypodensities likely on a small vessel basis. There is no evidence of pathologic ventricular dilatation. There is no evidence of acute sinusitis IMPRESSION: No acute intracranial findings Electronically signed by: González Navarro M.D. 07/15/2017 7:14 PM Dictated Date/Time: 07/15/2017 7:13 PM
--- NOTE | 2017-07-15 20:19 | DIAGNOSTIC IMAGING REPORT ---
R SHOULDER MIN 2 VIEWS ROUTINE CLINICAL HISTORY: Right shoulder pain status post trauma COMPARISON: None. DISCUSSION: There is a comminuted fractures of the humeral head and neck. A major humeral articular fragment is dislocated. IMPRESSION: Comminuted fracture dislocation of the humeral head and neck. Electronically signed by: González Navarro M.D. 07/15/2017 8:17 PM Dictated Date/Time: 07/15/2017 8:16 PM
--- NOTE | 2017-07-15 20:20 | DIAGNOSTIC IMAGING REPORT ---
L KNEE 3 VIEWS CLINICAL HISTORY: Left knee pain status post trauma COMPARISON: None. DISCUSSION: There are advanced osteoarthritic changes. There are calcified loose bodies present. There is marked narrowing medial joint compartment. There are dorsal patellar spurs. There are no acute fractures. IMPRESSION: Advanced osteoarthritic change. No acute fractures or dislocations. Electronically signed by: González Navarro M.D. 07/15/2017 8:18 PM Dictated Date/Time: 07/15/2017 8:18 PM
--- NOTE | 2017-07-15 20:22 | DIAGNOSTIC IMAGING REPORT ---
R ELBOW 2 VIEWS CLINICAL HISTORY: Right elbow pain status post trauma COMPARISON: None. DISCUSSION: The examination is limited from a positioning standpoint secondary to the patient's known fracture dislocation of the right shoulder. No acute fractures are visualized on the provided 2 images. There are no dislocations. Note is made of multiple coarse right breast calcifications. There is an age-indeterminate right rib fracture. IMPRESSION: 1. No fractures or dislocations of the right elbow identified. 2. Age-indeterminate right rib fracture Electronically signed by: González Navarro M.D. 07/15/2017 8:20 PM Dictated Date/Time: 07/15/2017 8:19 PM
--- NOTE | 2017-07-15 20:23 | DIAGNOSTIC IMAGING REPORT ---
L ELBOW 2 VIEWS CLINICAL HISTORY: Left elbow pain status post trauma COMPARISON: None. DISCUSSION: The study is limited from a positioning standpoint. No fractures or dislocations are visualized. IMPRESSION: No fractures or dislocations identified. Electronically signed by: González Navarro M.D. 07/15/2017 8:22 PM Dictated Date/Time: 07/15/2017 8:22 PM
--- NOTE | 2017-07-15 20:23 | DIAGNOSTIC IMAGING REPORT ---
L SHOULDER MIN 2 VIEWS ROUTINE CLINICAL HISTORY: Left shoulder pain status post trauma COMPARISON: None DISCUSSION: There is an impacted humeral neck fracture. There is no dislocation. The bones are osteopenic. IMPRESSION: Impacted humeral neck fracture. Electronically signed by: González Navarro M.D. 07/15/2017 8:21 PM Dictated Date/Time: 07/15/2017 8:21 PM
--- NOTE | 2017-07-15 20:24 | DIAGNOSTIC IMAGING REPORT ---
R KNEE 3 VIEWS CLINICAL HISTORY: Right knee pain status post trauma COMPARISON: None. DISCUSSION: There are moderately advanced osteoarthritic changes. No acute fractures or dislocations are visualized. There is no radiographic evidence of significant joint effusion. IMPRESSION: Moderately advanced osteoarthritic change. No acute fractures or dislocations. Electronically signed by: González Navarro M.D. 07/15/2017 8:23 PM Dictated Date/Time: 07/15/2017 8:22 PM
--- NOTE | 2017-07-15 20:26 | DIAGNOSTIC IMAGING REPORT ---
RIBS BILATERAL WITH PA CHEST (9 views) CLINICAL HISTORY: Bilateral rib pain status post trauma COMPARISON STUDY: Chest x-ray dated 06/09/2017 FINDINGS: There are benign-appearing coarse breast calcifications. There is no pneumothorax. There is an impacted fracture the left humeral head and neck. There is a fracture dislocation of the right humeral head and neck. There is an old right seventh rib fracture. No acute rib fractures are visualized. IMPRESSION: 1. Fracture dislocation the proximal right humerus 2. Fracture the proximal left humerus 3. Old right seventh rib fracture. No acute rib fractures identified 4. No evidence of pneumothorax Electronically signed by: González Navarro M.D. 07/15/2017 8:25 PM Dictated Date/Time: 07/15/2017 8:23 PM
[2017-07-15] MEDS ORDERED: MoRPHine SULFATE 2 MG/ML CARP IV PRN (20:45)
[2017-07-15] MEDS ORDERED: MoRPHine SULFATE 2 MG/ML CARP IV STA (22:01)
--- NOTE | 2017-07-15 22:54 | EMERGENCY ROOM VISIT NOTE ---
ED Visit Note First contact with patient: 18:07 I have personally seen and evaluated the patient with the PA. I agree with the diagnosis and management decisions and have been personally involved in the case. Please see Marcia Rose PA-C's notes for further details of the history, physical and visit.
[2017-07-15] MEDS ORDERED: ACETAMINOPHEN 325 MG TAB PO PRN (23:15)
[2017-07-15] MEDS ORDERED: FUROSEMIDE 20 MG TAB PO PRN (23:15)
[2017-07-15] MEDS: MoRPHine SULFATE 4 MG/ML 1 ML CARP\\VIAL IV PRN (23:57)
[2017-07-16] VITALS (12 sets, daily range): BP systolic 111–173; BP diastolic 64–83; PULSE 78–96; TEMP 36.6–37.1; O2SAT 87–99; Ht 170.2 cm; Wt 70.0 kg
--- NOTE | 2017-07-16 00:24 | History and Physical ---
History & Physical Date & Time of Service: Jul 16, 2017 at 00:18 Chief Complaint: Fall, R Rib Pain, Bilat. Arm Pain Primary Care Physician: Tita Garcia M.D. History of Present Illness Source: patient, friend This is a 81 year old F with bilateral humerus fracture after mechanical fall. Patient is verbal however history supplemented by chart review and family friend at bedside. Patient may have had slipped on the rug while reaching for her cell phone. Patient denies head trauma. Patient seen with slings on arms due to bilateral humerus fractures. Patient reports that pain medications in the Ed is alleviating her pain when seen by hospitalist. Other past medical history includes CLL on chronic prednisone and recent UTI on ciprofloxacin Past Medical/Surgical History Medical Problems: (1) Chronic lymphocytic leukemia Status: Chronic (2) Chronic steroid use Status: Chronic (3) Diverticulosis of colon Status: Chronic (4) Dyslipidemia Status: Chronic (5) GERD (gastroesophageal reflux disease) Status: Chronic (6) History of squamous cell carcinoma Status: Chronic (7) Hypogammaglobulinemia, acquired Status: Chronic (8) Osteoarthritis Status: Chronic (9) Osteoporosis Status: Chronic Surgical Problems: (1) Status post cataract extraction Status: Chronic (2) Status post hysterectomy Status: Chronic Family History Brain aneurysm MOTHER Cancer BROTHER Diabetes mellitus GRANDMOTHER Heart disease FATHER Social History Smoking Status: Never Smoker Drug Use: none Marital Status: Occupational Status: retired Immunizations History of Influenza Vaccine: Yes History of Tetanus Vaccine?: Yes History of Pneumococcal: Yes Pneumococcal Date: November 30, 2008 History of Hepatitis B Vaccine: No Multi-Drug Resistant Organisms History of MDRO: No Allergies Coded Allergies: Cephalosporins (Verified Allergy, Unknown, 06/27/16) Nitrofurantoin (Verified Allergy, Unknown, 06/27/16) Oxaprozin (Verified Allergy, Unknown, 06/27/16) Oxybutynin (Verified Allergy, Unknown, 06/27/16) Home Medications Scheduled Calcium Citrate-Vitamin D (Citracal + D3 Maximum), 3 TABS PO QAM Ciprofloxacin (Ciprofloxacin HCl), 500 MG PO BID Citalopram Hydrobromide (Citalopram Hydrobromide), 10 MG PO DAILY Cyanocobalamin (Vitamin B-12), 1,000 MCG SQ MONTHLY Ibrutinib (Imbruvica), 420 MG PO DAILY Ipratropium-Albuterol (Duoneb), 1 TREATMENT INH Q4H Melatonin (Melatonin Cr), 3 MG PO HS Multivitamin (Multivitamin), 1 TAB PO DAILY Bbyjyfju-Mwmntoolr-Dm Otic (Cortisporin Otic), DROPS OP [id number] Prednisone Tab (Prednisone), 10 MG PO DAILY Scheduled PRN Acetaminophen (Tylenol), 650 MG PO Q6H PRN for Pain Dextromethorphan-Guaifenesin (Mucinex Dm), 1 TAB PO Q12 PRN for CONGESTION Furosemide (Furosemide), 20 MG PO WK PRN for LEG SWELLING Guaifenesin Ext Rel (Mucinex Ext Rel), 600 MG PO Q12 PRN for Lorazepam (Lorazepam), 0.5 MG PO Q4 PRN for Anxiety Tramadol (Ultram), 50 MG PO Q4H PRN for Pain Miscellaneous Medications Estrogens, Conjugated (Premarin) Review of Systems Constitutional: No fever Eyes: No worsening of vision ENT: No sore throat Respiratory: No cough, No sputum, No wheezing, No shortness of breath, No dyspnea on exertion, No dyspnea at rest Cardiovascular: No chest pain, No edema, No palpitations Abdomen: No pain, No nausea, No vomiting, No diarrhea, No constipation Musculoskeletal: + joint pain, No calf pain Genitourinary - Female: No dysuria Neurologic: No paralysis Psychiatric: No substance abuse Endocrine: No fatigue Hematologic / Lymphatic: No abnormal bleeding/bruising, No clotting problems Integumentary: No rash Physical Exam Vital Signs Date Time Temp Pulse Resp B/P (MAP) Pulse Ox O2 Delivery O2 Flow Rate FiO2 07/16/17 00:03 80 16 102/65 95 07/15/17 22:20 78 18 106/58 96 Room Air 07/15/17 20:47 84 22 121/67 99 Room Air 07/15/17 18:13 36.7 82 22 177/90 100 Room Air General Appearance: no apparent distress Head: normocephalic, atraumatic Eyes: normal inspection, EOMI, sclerae normal ENT: normal ENT inspection, hearing grossly normal, pharynx normal Neck: supple, no JVD, trachea midline Respiratory/Chest: chest non-tender, lungs clear, normal breath sounds, no respiratory distress, no accessory muscle use Cardiovascular: regular rate, rhythm, no edema, no JVD Abdomen/GI: normal bowel sounds, non tender, soft Extremities/Musculoskelatal: no calf tenderness, no pedal edema, + pertinent finding (arms are in slings ) Neurologic/Psych: alert, oriented x 3 Skin: normal color, warm/dry, no rash Diagnostics Laboratory Results Results Past 24 Hours Test 07/15/17 18:15 Range/Units White Blood Count 22.73 4.8-10.8 K/uL Red Blood Count 4.21 4.2-5.4 M/uL Hemoglobin 12.1 12.0-16.0 g/dL Hematocrit 37.1 37-47 % Mean Corpuscular Volume 88.1 80-100 fL Mean Corpuscular Hemoglobin 28.7 25-34 pg Mean Corpuscular Hemoglobin Concent 32.6 32-36 g/dl Platelet Count 135 130-400 K/uL Mean Platelet Volume 9.9 7.4-10.4 fL Neutrophils (%) (Auto) 37.3 % Lymphocytes (%) (Auto) 59.4 % Monocytes (%) (Auto) 2.9 % Eosinophils (%) (Auto) 0.0 % Basophils (%) (Auto) 0.2 % Neutrophils # (Auto) 8.45 1.4-6.5 K/uL Lymphocytes # (Auto) 13.50 1.2-3.4 K/uL Monocytes # (Auto) 0.67 0.11-0.59 K/uL Eosinophils # (Auto) 0.01 0-0.5 K/uL Basophils # (Auto) 0.05 0-0.2 K/uL RDW Standard Deviation 48.3 36.4-46.3 fL RDW Coefficient of Variation 15.1 11.5-14.5 % Immature Granulocyte % (Auto) 0.2 % Immature Granulocyte # (Auto) 0.05 0.00-0.02 K/uL Smudge Cells PRESENT Sodium Level 136 136-145 mmol/L Potassium Level 4.1 3.5-5.1 mmol/L Chloride Level 103 98-107 mmol/L Carbon Dioxide Level 25 21-32 mmol/L Anion Gap 8.0 3-11 mmol/L Blood Urea Nitrogen 25 7-18 mg/dl Creatinine 1.10 0.60-1.20 mg/dl Est Creatinine Clear Calc Drug Dose 40.3 ml/min Estimated GFR () 55.3 Estimated GFR (Non- 47.7 BUN/Creatinine Ratio 22.9 10-20 Random Glucose 136 70-99 mg/dl Calcium Level 8.7 8.5-10.1 mg/dl Impression Assessment and Plan This is a 81 year old F with bilateral humerus fracture after mechanical fall. Rib X rays 1. Fracture dislocation the proximal right humerus 2. Fracture the proximal left humerus 3. Old right seventh rib fracture. No acute rib fractures identified 4. No evidence of pneumothorax Right Shoulder X ray: Comminuted fracture dislocation of the humeral head and neck Right elbow X ray: No fractures or dislocations of the right elbow identified Left Shoulder X ray: There is an impacted humeral neck fracture Left Elbow X ray negative Knee X rays: No acute fractures or dislocations Head CT negative Patient is to be evaluated by Orthopedics for possible surgery on 07/16/16 Will keep NPO except medications/water sips/ice chips until orthopedic evaluation Anesthesia consult also requested Pain control for fractures with morphine prn and tramadol prn Bowel regimen with senna and colace to prevent ileus History of CLL Continue Imbruvica, patient's friend will bring medication from patient's home to nurse if this medication is not on this is on chronic prednisone therapy, continue 10 mg daily Has been on oral ciprofloxacin at home for UTI, continue medication, obtain urinalysis Leukocytosis from CLL vs prednisone use vs UTI Continue home dose citalopram Continue home does calcium and B12 DVT ppx: SCDs Full Code Level of Care Med/Surg Resuscitation Status FULL RESUSCITATION VTE Prophylaxis VTE Risk Assessment Done? Y/N: Yes Risk Level: Moderate
[2017-07-16] MEDS: TRAMADOL HCL 50 MG TAB PO PRN ×3 (00:41→14:08)
[2017-07-16] MEDS: SODIUM CHLORIDE 0.9% 1000ML 1,000 ML IV SCH ×2 (00:44→14:10)
[2017-07-16] MEDS ORDERED: ACETAMINOPHEN 325 MG TAB PO PRN (00:45)
[2017-07-16] MEDS ORDERED: NURSING VERBAL MED ORDER ONE ×2 (03:30→16:30)
[2017-07-16] MEDS ORDERED: MoRPHine SULFATE 2 MG/ML CARP ONE (03:35)
[2017-07-16] MEDS ORDERED: MoRPHine SULFATE 2 MG/ML CARP IV STA (03:38)
[2017-07-16] MEDS: LORAZEPAM 0.5 MG TAB PO PRN ×2 (04:19→15:12)
[2017-07-16 05:45] LABS: HEMATOCRIT 30.6 % (37-47); HEMOGLOBIN 9.9 g/dL (12.0-16.0); MEAN CELL VOLUME 88.7 fL (80-100); MEAN CORPUSCULAR HEMOGLOBIN 28.7 pg (25-34); MEAN CORPUSCULAR HGB CONC 32.4 g/dl (32-36); MEAN PLATELET VOLUME 9.2 fL (7.4-10.4); PLATELET COUNT 105 K/uL (130-400); RED CELL DISTRIBUTION WIDTH CV 15.3 % (11.5-14.5); RED CELL DISTRIBUTION WIDTH SD 49.4 fL (36.4-46.3); WHITE BLOOD COUNT 15.72 K/uL (4.8-10.8)
[2017-07-16 06:13] LABS: ALBUMIN 2.9 gm/dl (3.4-5.0); CALCIUM 7.5 mg/dl (8.5-10.1)
[2017-07-16] MEDS: MoRPHine SULFATE 4 MG/ML 1 ML CARP\\VIAL IV PRN (06:19)
[2017-07-16 07:16] LABS: BASO % 0.3 %; BASO ABS # 0.04 K/uL (0-0.2); IG# 0.02 K/uL (0.00-0.02); LYMPH % 62.6 %; LYMPH ABS # 9.84 K/uL (1.2-3.4); MONO % 6.2 %; MONO ABS # 0.98 K/uL (0.11-0.59); NEUT % 30.8 %; NEUT ABS # 4.84 K/uL (1.4-6.5)
[2017-07-16] MEDS ORDERED: HYDROCORTISONE IV 50 MG in SYRINGE 0 ML IV PRN (07:30)
[2017-07-16] MEDS: DOCUSATE SODIUM 100 MG CAP PO SCH ×2 (07:34→20:45)
[2017-07-16] MEDS: SENNA 8.6 MG TAB PO SCH (07:34)
[2017-07-16] MEDS: CITALOPRAM 20 MG TAB PO SCH (07:35)
[2017-07-16] MEDS: CALCIUM 600MG + VIT D 400 IU TAB PO SCH (07:37)
[2017-07-16] MEDS: MULTIVITAMIN TAB PO SCH (07:37)
[2017-07-16] MEDS: ALBUT/IPRATROP 3MG/0.5MG NEB 3 ML VIAL INH SCH ×4 (07:48→20:00)
[2017-07-16] MEDS ORDERED: IMBRUVICA~ORDER AWAITING ACTION SCH (08:00)
--- NOTE | 2017-07-16 08:15 | ORTHOPEDIC CONSULTATION ---
DATE OF CONSULTATION: 07/16/2017 CHIEF COMPLAINT: Bilateral proximal humerus fractures. HISTORY OF PRESENT ILLNESS: Abigail is a pleasant 81-year-old female who lives at home by herself. She slipped on a rug while reaching for cell phone and fell on her bilateral outstretched hands. She had severe bilateral shoulder pain. She came to the Emergency Room, where radiographs demonstrated a fracture dislocation of the right shoulder and an impacted humeral neck fracture of the left shoulder. She was admitted to the hospitalist service. Orthopedics was consulted to evaluate and treat. PAST MEDICAL HISTORY: Significant for CLL, chronic steroid use, diverticulosis, hyperlipidemia, GERD, hypogammaglobulinemia, osteoporosis and osteoarthritis. PAST SURGICAL HISTORY: Significant for cataract surgery and hysterectomy. HOME MEDICATIONS: Include Cipro 500 mg twice a day, citalopram 10 mg daily, vitamin B12 of 1000 mg monthly, Imbruvica 420 mg daily, DuoNeb 1 treatment every 4 hours, melatonin 3 mg at night, daily multivitamins, prednisone 10 mg daily, and neomycin drops 3 times a week. ALLERGIES: INCLUDE CEPHALOSPORINS, NITROFURANTOIN, OXAPROZIN AND OXYBUTYNIN. FAMILY HISTORY: Denies. SOCIAL HISTORY: She is and she lives at home by herself. She has a family friend with her at bedside. REVIEW OF SYSTEMS: She complains of bilateral shoulder pains. PHYSICAL EXAMINATION: Both shoulders, she is sitting with bilateral shoulder sling. Her radial, median and ulnar nerves were checked and intact both sides. Her axillary nerves were not checked. She has some ecchymoses. She has little bit more deformity of her right shoulder than her left. IMAGING: X-rays reviewed do show 4-part fracture dislocation of the right proximal humerus. X-rays of the left shoulder suggest an impacted left humeral neck fracture; however, a glenoid profile view would be more helpful. CT of the head was negative. Elbow x-rays were negative and knee x-ray showed osteoarthritis. IMPRESSION: 1. Fracture dislocation of the right shoulder. 2. Impacted humeral neck fracture of the left shoulder. PLAN: I talked to her and her family friend at bedside. The right shoulder is going to require a surgical fixation to include a shoulder replacement surgery. I would like to do that later today. She is currently n.p.o. With regards to her left shoulder, this will likely be treated conservatively, but I will need better x-rays. I do not plan any surgical intervention today for her left shoulder. Unfortunately, she will be in bilateral arm slings for anywhere from 4-6 weeks. After 6 weeks, she should be more functional, but it will be closer to 5 months before she can fully take care of herself. I discussed this with her and her friend at bedside. We will plan for surgery on her right shoulder later today.
[2017-07-16] MEDS: CIPROFLOXACIN 500 MG TAB PO SCH ×2 (09:04→20:45)
[2017-07-16] MEDS ORDERED: HYDROmorphone INJ 0.5 MG/0.5 ML SYR IV PRN (11:45)
--- NOTE | 2017-07-16 12:02 | Progress Note ---
Medicine Progress Note Date & Time of Visit: Jul 16, 2017 at 11:30 . Subjective CC: Follow-up visit for bilat humeral fractures. HPI: Admitted last evening. Apparent mechanical fall at home with bilat humeral fractures. Had severe bilat upper extremity pain earlier, better now. Struck head when she fell- no headache, visual changes, dizziness. Chest wall pain, but no anginal symptoms. Occasional cough, but no different than her baseline. Being treated for UTI; no dysuria. ROS: General- no fever, no chills Resp- as noted above in HPI Cardiac- as noted above in HPI GI- no nausea, no vomiting, no diarrhea, no constipation - as noted above in HPI . Objective Last 8 Hrs Date Time Temp Pulse Resp B/P (MAP) Pulse Ox O2 Delivery O2 Flow Rate FiO2 07/16/17 11:34 87 16 95 Room Air 07/16/17 07:48 96 16 97 Room Air 07/16/17 07:38 36.8 91 18 134/73 (93) 96 Room Air 07/16/17 07:30 Room Air Physical Exam: General- lying in bed; no distress Head- right frontotemporal ecchymosis Lungs- mild wheezing; no respiratory distress Cardiovascular - RRR, II/ sys murmur at base; no JVD; trace pretibial edema Abdomen- normal bowel sounds, soft, nontender Extremities- no cyanosis; hematoma right knee / leg; no calf tenderness Neuro- alert, oriented Skin- warm and dry . Laboratory Results: Last 24 Hours Test 07/15/17 18:15 07/16/17 05:24 White Blood Count 22.73 K/uL 15.72 K/uL Red Blood Count 4.21 M/uL 3.45 M/uL Hemoglobin 12.1 g/dL 9.9 g/dL Hematocrit 37.1 % 30.6 % Mean Corpuscular Volume 88.1 fL 88.7 fL Mean Corpuscular Hemoglobin 28.7 pg 28.7 pg Mean Corpuscular Hemoglobin Concent 32.6 g/dl 32.4 g/dl Platelet Count 135 K/uL 105 K/uL Mean Platelet Volume 9.9 fL 9.2 fL Neutrophils (%) (Auto) 37.3 % 30.8 % Lymphocytes (%) (Auto) 59.4 % 62.6 % Monocytes (%) (Auto) 2.9 % 6.2 % Eosinophils (%) (Auto) 0.0 % 0.0 % Basophils (%) (Auto) 0.2 % 0.3 % Neutrophils # (Auto) 8.45 K/uL 4.84 K/uL Lymphocytes # (Auto) 13.50 K/uL 9.84 K/uL Monocytes # (Auto) 0.67 K/uL 0.98 K/uL Eosinophils # (Auto) 0.01 K/uL 0.00 K/uL Basophils # (Auto) 0.05 K/uL 0.04 K/uL RDW Standard Deviation 48.3 fL 49.4 fL RDW Coefficient of Variation 15.1 % 15.3 % Immature Granulocyte % (Auto) 0.2 % 0.1 % Immature Granulocyte # (Auto) 0.05 K/uL 0.02 K/uL Smudge Cells PRESENT PRESENT Sodium Level 136 mmol/L 137 mmol/L Potassium Level 4.1 mmol/L 4.0 mmol/L Chloride Level 103 mmol/L 104 mmol/L Carbon Dioxide Level 25 mmol/L 25 mmol/L Anion Gap 8.0 mmol/L 8.0 mmol/L Blood Urea Nitrogen 25 mg/dl 31 mg/dl Creatinine 1.10 mg/dl 1.00 mg/dl Est Creatinine Clear Calc Drug Dose 40.3 ml/min 44.4 ml/min Estimated GFR () 55.3 62.1 Estimated GFR (Non- 47.7 53.5 BUN/Creatinine Ratio 22.9 31.4 Random Glucose 136 mg/dl 146 mg/dl Calcium Level 8.7 mg/dl 7.5 mg/dl Total Bilirubin 0.6 mg/dl Aspartate Amino Transf (AST/SGOT) 18 U/L Alanine Aminotransferase (ALT/SGPT) 21 U/L Alkaline Phosphatase 36 U/L Total Protein 6.0 gm/dl Albumin 2.9 gm/dl Globulin 3.1 gm/dl Albumin/Globulin Ratio 0.9 Assessment & Plan BILATERAL HUMERAL FRACTURES Ortho consulted. ORIF's anticipated this afternoon. Titrate analgesics. Check vitamin D level. CHRONIC STEROID THERAPY On prednisone 10 mg daily for CLL. IV hydrocortisone ordered preop. CLL Continue usual meds. VTE PROPHYLAXIS SCD's ordered, patient refused. No anticoagulants due to thrombocytopenia and RLE hematoma. Ambulate as able. DISPOSITION To be determined. May need skilled care or inpt rehab. Case Management following. Internal Medicine follow-up with Dr. Tita Garcia. Hematology / Oncology follow-up with Dr. Mtz. . Current Inpatient Medications: Current Inpatient Medications Medications (Trade) Dose Ordered Sig/Jazmine Route Start Time Stop Time Status Last Admin Dose Admin Furosemide (Lasix Tab) 20 mg DAILY PRN PO 07/15/17 23:15 08/14/17 23:14 Lorazepam (Ativan Tab) 0.5 mg Q4 PRN PO 07/15/17 23:15 08/14/17 23:14 07/16/17 04:19 0.5 MG Multivitamins (Multivitamin Tab) 1 tab DAILY PO 07/16/17 09:00 08/15/17 08:59 Prednisone (PredniSONE TAB) 10 mg DAILY PO 07/16/17 09:00 08/15/17 08:59 07/16/17 07:34 10 MG Tramadol HCl (Ultram Tab) 50 mg Q4H PRN PO 07/15/17 23:15 08/14/17 23:14 07/16/17 07:33 50 MG Calcium/Vitamin D (Caltrate Plus Tab) 3 tab QAM PO 07/16/17 09:00 08/15/17 08:59 Citalopram Hydrobromide (celeXA TAB) 10 mg DAILY PO 07/16/17 09:00 08/15/17 08:59 07/16/17 07:35 10 MG Miscellaneous Information (Order Awaiting Action) 1 ea QS N/A 07/16/17 08:00 08/15/17 07:59 Albuterol/ Ipratropium (Duoneb) 3 ml QIDR INH 07/16/17 08:00 08/15/17 07:59 07/16/17 11:34 3 ML Senna (Senokot Tab) 8.6 mg QAM PO 07/16/17 09:00 08/15/17 08:59 07/16/17 07:34 8.6 MG Docusate Sodium (coLACE CAP) 100 mg BID PO 07/16/17 09:00 08/15/17 08:59 07/16/17 07:34 100 MG Sodium Chloride 1,000 ml @ 75 mls/hr [id number] IV 07/16/17 01:00 08/15/17 00:59 07/16/17 00:44 75 MLS/HR Ciprofloxacin (Cipro Tab) 500 mg BID PO 07/16/17 09:00 07/21/17 08:59 07/16/17 09:04 500 MG Hydrocortisone Sodium Succinate 50 mg/Syringe 1 ml @ 4 mls/min DAILY PRN IV 07/16/17 07:30 07/16/17 23:59 07/16/17 09:05 4 MLS/MIN Acetaminophen 1000 mg/Empty Bag 100 ml @ 400 mls/hr Q8H IV 07/16/17 11:45 07/17/17 03:59 UNV Hydromorphone HCl (Dilaudid Inj) 0.25 mg Q30M PRN IV 07/16/17 11:45 07/30/17 11:44 UNV
[2017-07-16] MEDS: IBRUTINIB 140 MG CAP PO SCH (12:19)
[2017-07-16] MEDS: ACETAMINOPHEN IV 1,000 MG in EMPTY BAG 0 ML IV SCH ×2 (14:08→21:30)
[2017-07-16] MEDS ORDERED: LIDOCAINE HCL 2% 2 ML VIAL (20MG/ML) ONE (14:50)
[2017-07-16] MEDS ORDERED: NEOSTIGMINE METHYLSULFATE 5 MG/5 ML SYR ONE (14:50)
[2017-07-16] MEDS ORDERED: DEXAMETHASONE SOD INJ 4 MG/ML VIAL ONE (14:50)
[2017-07-16] MEDS ORDERED: GLYCOPYRROLATE INJ 0.2 MG/ML VIAL ONE (14:50)
[2017-07-16] MEDS ORDERED: MIDAZOLAM HCL 1 MG/ML 2ML VIAL ONE ×2 (14:50→15:14)
[2017-07-16] MEDS ORDERED: PROPOFOL IV EMULSION 10 MG/ML 20 ML VIAL IV ONE (14:50)
[2017-07-16] MEDS ORDERED: ONDANSETRON INJ 2 MG/ML 2 ML VIAL ONE ×2 (14:50→17:53)
[2017-07-16] MEDS ORDERED: FENTANYL CITRATE INJ 50 MCG/1 ML 2 ML VIAL ONE ×2 (14:50→15:14)
[2017-07-16] MEDS ORDERED: BACITRACIN 50000 UNIT VIAL ONE (14:53)
[2017-07-16] MEDS ORDERED: ROPIVACAINE 0.5% 5 MG/ML 30 ML VIAL ONE (15:04)
[2017-07-16] MEDS ORDERED: SODIUM CHLORIDE 0.9% INJ 10 ML VIAL ONE (15:04)
[2017-07-16] MEDS ORDERED: VANCOMYCIN 1GM/270ML NSS ONE (16:24)
--- NOTE | 2017-07-16 16:49 | History & Physical Bridge Note ---
H&P Re-Evaluation Bridge Note: I have examined the patient, reviewed the History & Physical and in the interval since the performance of the History & Physical I have noted the following changes of clinical significance: No changes noted
[2017-07-16] MEDS ORDERED: ATROPINE SULFATE 0.1 MG/ML 5ML SYR IV PRN (17:00)
[2017-07-16] MEDS ORDERED: HYDROmorphone INJ 2 MG/ML SYR/VIAL IV PRN (17:00)
[2017-07-16] MEDS ORDERED: ONDANSETRON INJ 2 MG/ML 2 ML VIAL IV PRN (17:00)
[2017-07-16] MEDS ORDERED: ROPIVACAINE 5MG/ML 30 ML 150 MG, BUPIVACAINE 0.5% MPF INJ 30 ML, EpINEphrine HCL INJ 0.... INFIL SCH ×8 (17:10)
[2017-07-16] MEDS ORDERED: HYDROCORTISONE SOD SUCCINATE 100 MG/2 ML VIAL ONE (17:30)
[2017-07-16] MEDS ORDERED: PHENYLEPHRINE 100MCG/ML 5ML SYR ONE (17:31)
[2017-07-16] MEDS ORDERED: LARYING-O-JET KIT (LTA) ONE (17:34)
--- NOTE | 2017-07-16 20:03 | OPERATIVE REPORT ---
DATE OF OPERATION: 07/16/2017 PREOPERATIVE DIAGNOSIS: Fracture dislocation of the right shoulder. POSTOPERATIVE DIAGNOSIS: Same. PROCEDURE: Fracture reverse right shoulder arthroplasty. SURGEON: Dr. Sina Oh. VALVE TESTER: Sina Sanabria PA-C, whose assistance was necessary for retraction and positioning the arm. ANESTHESIA: General with a right interscalene nerve block. COMPLICATIONS: None. CONDITION: Stable to PACU. INDICATIONS: Abigail is a pleasant 81-year-old female who fell yesterday on her bilateral outstretched arms. She sustained an impacted fracture of the left proximal humerus and a fracture dislocation of the right proximal humerus. After discussions with her family, we elected to proceed with a fracture reverse right total shoulder arthroplasty. OPERATION AND FINDINGS: On 07/16/2017, she was brought down from her hospital room to the preoperative holding area and the operative extremity was identified and signed. She was given a preoperative antibiotic, right interscalene nerve block. She was taken back to the operating room, laid on the table in supine position and put under general anesthesia. She was then put into the beachchair position, the right shoulder was prepped and draped in sterile fashion, time-out was done and the patient and operative extremity was properly identified. A deltopectoral approach was used. Dissection was taken down through the fascia and the deltopectoral interval was opened up. The long head of the biceps tendon was identified and tenodesed to the upper border of the pec major and the rotator interval was opened up and greater tuberosity and supraspinatus were from the lesser tuberosity and subscapularis all the way to the coracoid. The greater tuberosity was then tagged with several #5 FiberWire sutures. The humeral head was dislocated out of the joint and removed. The glenoid was easily exposed. Time was spent doing a complete circumferential labral release. A Biomet guide was then placed on the inferior aspect of the glenoid and a guide pin was placed at 10 degrees of inclination. A 25 mm mini base plate was then reamed and impacted into place. A single 25 mm central screw was placed followed by superior and inferior locking screw. A 36 mm eccentric glenosphere was then impacted into place. The proximal humerus was then exposed. Sequential reaming of the humerus was done up to a size 10 reamer. A size 10 trial was used and the shoulder was reduced. I was happy with the overall alignment. The trials were then removed and final size 8 implant was then cemented in place with Palacos-G cement. Once cement had hardened, several different polyethylene trays were used and a standard +3 bearing seemed to be the best fit. The final bearing was snapped onto the humeral tray and humeral tray was impacted onto the humeral stem. The shoulder was then reduced, brought through a full range of motion and felt to be stable. The tuberosities were then repaired back to the stem by going around the neck of the implant and through holes in the stem to get a nice anatomic repair of the greater and lesser tuberosities. Two drill holes had also been placed earlier through the diaphysis of the humerus and sutures were used to pull the tuberosities down perpendicular to the previous sutures. This gave a really nice repair and the supraspinatus was left intact. The shoulder was brought through a full range of motion and felt to be stable. The axillary nerve was palpated. The surrounding soft tissues were then injected with 100 mL of orthopedic pain control cocktail. The wound was then irrigated with 3 liters of normal saline solution with bacitracin. A drain was placed. Skin was closed with 2-0 Vicryl and og. She was then placed in a soft dressing and a regular arm sling. She was then extubated, transferred to a litter and taken to the postanesthesia care unit in stable condition. She tolerated the procedure well. IMPLANTS USED: I used a Biomet comprehensive reverse right fracture system. I used a size 8 fracture stem with a 25 mm mini baseplate, a 36 mm standard eccentric glenosphere, a size 44 standard tray and a 44 +3 standard bearing. I attest to the content of the Intraoperative Record and any orders documented therein. Any exception s are noted below.
--- NOTE | 2017-07-16 20:08 | DIAGNOSTIC IMAGING REPORT ---
R SHOULDER MIN 2 VIEWS ROUTINE CLINICAL HISTORY: Post shoulder surgery. COMPARISON: Right shoulder radiographs July 25, 2017. FINDINGS: These images demonstrate anatomic alignment of a right shoulder arthroplasty. Hardware is intact. No unexpected radiopaque foreign body is noted. Drains and skin og are present. No periprosthetic fracture is identified. IMPRESSION: Expected findings following right shoulder arthroplasty. Electronically signed by: Landen Zarco M.D. 07/16/2017 8:06 PM Dictated Date/Time: 07/16/2017 8:05 PM
--- NOTE | 2017-07-16 20:09 | Anesthesiology Progress Note ---
Anesthesia Post Op Note Date & Time Jul 16, 2017 at 20:09 Vital Signs Pain Intensity: 0 Vital Signs Past 12 Hours Date Time Temp Pulse Resp B/P (MAP) Pulse Ox O2 Delivery O2 Flow Rate FiO2 07/16/17 20:00 79 15 162/76 100 Oxymask 6 07/16/17 19:50 84 17 151/74 100 Oxymask 10 07/16/17 19:43 179/85 07/16/17 19:41 36.2 91 18 100 Oxymask 10 07/16/17 16:06 36.8 97 16 94 Room Air 07/16/17 15:36 87 165/78 (107) 07/16/17 15:20 Room Air 07/16/17 15:19 86 16 94 Room Air 07/16/17 15:01 36.8 87 18 173/76 (108) 95 Room Air 07/16/17 11:34 87 16 95 Room Air Notes Mental Status: alert / awake / arousable, participated in evaluation Pt Amnestic to Procedure: Yes Nausea / Vomiting: adequately controlled Pain: adequately controlled Airway Patency, RR, SpO2: stable & adequate BP & HR: stable & adequate Hydration State: stable & adequate Anesthetic Complications: no major complications apparent
[2017-07-16] MEDS ORDERED: MELATONIN 3 MG PO SCH (21:00)
[2017-07-17] VITALS (16 sets, daily range): BP systolic 80–171; BP diastolic 34–74; PULSE 85–116; TEMP 36.7–37.1; O2SAT 93–97
[2017-07-17] MEDS ORDERED: HYDROCORTISONE IV 25 MG in SYRINGE 0 ML IV ONE
[2017-07-17] MEDS: SODIUM CHLORIDE 0.9% 1000ML 1,000 ML IV SCH ×2 (03:11→21:41)
[2017-07-17] MEDS ORDERED: VANCOMYCIN INJ 1,000 MG in SODIUM CHLORIDE 0.9% 250ML 250 ML IV SCH (04:00)
[2017-07-17] MEDS: ACETAMINOPHEN IV 1,000 MG in EMPTY BAG 0 ML IV SCH (05:42)
[2017-07-17 06:59] LABS: HEMATOCRIT 19.4 % (37-47); HEMOGLOBIN 6.1 g/dL (12.0-16.0); MEAN CELL VOLUME 89.4 fL (80-100); MEAN CORPUSCULAR HEMOGLOBIN 28.1 pg (25-34); MEAN CORPUSCULAR HGB CONC 31.4 g/dl (32-36); MEAN PLATELET VOLUME 9.1 fL (7.4-10.4); RED CELL DISTRIBUTION WIDTH CV 15.6 % (11.5-14.5); RED CELL DISTRIBUTION WIDTH SD 50.7 fL (36.4-46.3); WHITE BLOOD COUNT 11.73 K/uL (4.8-10.8)
[2017-07-17 07:16] LABS: CALCIUM 6.2 mg/dl (8.5-10.1); CREATININE 0.84 mg/dl (0.60-1.20); POTASSIUM 4.6 mmol/L (3.5-5.1)
--- NOTE | 2017-07-17 07:21 | Clinical Documentation Query ---
CLINICAL DOCUMENTATION QUERY A 81 year old female who presents to the Emergency Room with complaints of a mechanical fall prior to arrival. Other past medical history includes CLL on chronic prednisone and recent UTI on ciprofloxacin. In your clinical opinion is this patient being managed for: ( x ) Urinary tract infection, POA ( ) Not Agree ( ) Other explanation of clinical findings (Please Explain) ( ) Unable to determine (Please Define) ( ) Need to Discuss The medical record reflects the following clinical findings, treatment, and risk factors. Clinical Indicators: Positive UA Treatment: Ciprofloxacin 250mg PO Risk Factors: Age, female Please clarify and document your clinical opinion in the progress notes and discharge summary. Terms such as "probable", "suspected", "likely", "questionable", "possible", or "still to be ruled out" are acceptable. IF IN AGREEMENT, YOU MUST DOCUMENT ABOVE DIAGNOSTIC STATEMENT IN DAILY PROGRESS NOTES AND DISCHARGE SUMMARY. This document is not part of the patient's record. Thank You, Amna Bloom RN [phone]
[2017-07-17 07:22] LABS: PLATELET COUNT 68 K/uL (130-400)
[2017-07-17 07:55] LABS: HEMATOCRIT 19.5 % (37-47); HEMOGLOBIN 6.2 g/dL (12.0-16.0)
[2017-07-17] MEDS: ALBUT/IPRATROP 3MG/0.5MG NEB 3 ML VIAL INH SCH ×4 (07:55→19:52)
[2017-07-17] MEDS ORDERED: ACETAMINOPHEN 325 MG TAB PO ONE (08:19)
[2017-07-17] MEDS: TRAMADOL HCL 50 MG TAB PO PRN ×3 (08:27→23:45)
[2017-07-17] MEDS: CIPROFLOXACIN 250 MG TAB PO SCH ×2 (08:27→21:41)
[2017-07-17] MEDS: CALCIUM 600MG + VIT D 400 IU TAB PO SCH (08:27)
[2017-07-17] MEDS: DOCUSATE SODIUM 100 MG CAP PO SCH ×2 (08:28→21:41)
[2017-07-17] MEDS: SENNA 8.6 MG TAB PO SCH (08:28)
[2017-07-17] MEDS: MULTIVITAMIN TAB PO SCH (08:28)
[2017-07-17] MEDS: CITALOPRAM 20 MG TAB PO SCH (08:28)
--- NOTE | 2017-07-17 14:57 | PROGRESS NOTE ---
DATE: 07/17/2017 DATE: 07/17/2017 CHIEF COMPLAINT: Status post reverse right shoulder arthroplasty for fracture postop day #1. PROGRESS: Abigail was seen and examined at bedside today. Overall, she is doing fairly well. She seems to be in very good spirits. Her shoulder is not hurting her as much as it was yesterday. She does have a wrist strap which she does not seem concerned about at this time. Her pain is controlled. She has no complaints. PHYSICAL EXAMINATION: She has both arms in a sling. The dressing is clean and dry and the drain is to suction. She does not have any active dorsiflexion of her wrist. She does not have any active extension of her fingers. She has active flexion of her fingers and active abduction of her fingers. She is wearing an arm sling on her left shoulder. She has active dorsiflexion of her left wrist. LABORATORY DATA: She has an H&H today of 6.2 and 19.5. She has already received a unit of packed red blood cells. Her glucose is 120. X-rays postoperatively of the right shoulder show anatomic alignment, no evidence of fracture dislocation or loosening. IMPRESSION: 1. Status post reverse right shoulder arthroplasty postop day #1. 2. Early postoperative wrist drop. PLAN: Her caregivers were at her bedside. I talked about the surgery, she will likely be in bilateral arm slings for close to 6 weeks. The surgery went very well. The humeral head was out of socket and pressed against the brachial plexus. I was able to remove the humeral head, but the radial nerve is sensitive and is not firing at this time. Her radial nerve is intact. We just need to wait for it to wake back up. I discussed this with the family and caregivers at bedside. They fully understand. Will continue with pain control and I will continue to follow her closely. She can get physical therapy for hand, wrist and elbow exercises. She can be up and ambulating, but I do not want any motion of the shoulders at this time.
[2017-07-17 15:32] LABS: HEMATOCRIT 23.6 % (37-47); HEMOGLOBIN 7.6 g/dL (12.0-16.0)
[2017-07-17] MEDS: HYDROmorphone INJ 1 MG/ML SYR IV PRN (16:54)
[2017-07-17] MEDS: IBRUTINIB 140 MG CAP PO SCH (18:17)
[2017-07-17] MEDS: LORAZEPAM 0.5 MG TAB PO PRN (19:47)
--- NOTE | 2017-07-17 21:02 | Progress Note ---
Medicine Progress Note Date & Time of Visit: Jul 17, 2017 at 16:10 . Subjective CC: Follow-up visit for fractures of bilateral humeri. HPI: Experiencing postop pain. Noted some dyspnea on exertion this morning. Transfused this morning for low H/H. ROS: General- no fever, no chills Resp- no cough Cardiac- no chest pain GI- no nausea, no vomiting, no BM today - no dysuria . Objective Last 8 Hrs Date Time Temp Pulse Resp B/P (MAP) Pulse Ox O2 Delivery O2 Flow Rate FiO2 07/17/17 19:53 85 16 96 Room Air 07/17/17 16:00 Room Air 07/17/17 15:40 88 16 95 Room Air 07/17/17 15:15 36.7 107 18 153/72 (99) 96 Room Air Physical Exam: General- lying in bed; uncomfortable Head- right frontotemporal ecchymosis ENT- hard of hearing Lungs- few basilar rales, mild wheezing; no respiratory distress Cardiovascular - RRR, II/ sys murmur at base; no JVD; trace pretibial edema Abdomen- normal bowel sounds, soft, nontender Extremities- no cyanosis; hematoma right knee / leg; no calf tenderness; upper extremities immobilized Neuro- alert, oriented Skin- warm and dry . Laboratory Results: Last 24 Hours Test 07/17/17 06:22 07/17/17 07:29 07/17/17 15:15 White Blood Count 11.73 K/uL Red Blood Count 2.17 M/uL Hemoglobin 6.1 g/dL 6.2 g/dL 7.6 g/dL Hematocrit 19.4 % 19.5 % 23.6 % Mean Corpuscular Volume 89.4 fL Mean Corpuscular Hemoglobin 28.1 pg Mean Corpuscular Hemoglobin Concent 31.4 g/dl RDW Standard Deviation 50.7 fL RDW Coefficient of Variation 15.6 % Platelet Count 68 K/uL Mean Platelet Volume 9.1 fL Sodium Level 138 mmol/L Potassium Level 4.6 mmol/L Chloride Level 110 mmol/L Carbon Dioxide Level 23 mmol/L Anion Gap 5.0 mmol/L Blood Urea Nitrogen 25 mg/dl Creatinine 0.84 mg/dl Est Creatinine Clear Calc Drug Dose 52.8 ml/min Estimated GFR () 76.6 Estimated GFR (Non- 66.1 BUN/Creatinine Ratio 29.8 Random Glucose 120 mg/dl Calcium Level 6.2 mg/dl 25-Hydroxy Vitamin D Total 38.0 ng/ml Assessment & Plan BILATERAL HUMERAL FRACTURES Ortho consulted. Bilateral ORIF's performed 07/16/17. Titrate analgesics. OSTEOPOROSIS Vitamin D level = 38. Continue replacement. ACUTE BLOOD LOSS ANEMIA Hgb 12.1 --> --> 6.1. Acute blood loss anemia secondary to hematoma from fall. 1 unit pRBC's today. Follow H/H. CLL Status discussed with Heme / Onc. Ibrutinib should be held for 7 days because of bleeding risk. CHRONIC STEROID THERAPY On prednisone 10 mg daily for CLL. Received IV hydrocortisone preop. VTE PROPHYLAXIS SCD's. No anticoagulants due to thrombocytopenia and RLE hematoma. Ambulate as able. DISPOSITION To be determined. May need skilled care or inpt rehab. Case Management following. Internal Medicine follow-up with Dr. Tita Garcia. Hematology / Oncology follow-up with Dr. Mtz. . Current Inpatient Medications: Current Inpatient Medications Medications (Trade) Dose Ordered Sig/Jazmine Route Start Time Stop Time Status Last Admin Dose Admin Furosemide (Lasix Tab) 20 mg DAILY PRN PO 07/15/17 23:15 08/14/17 23:14 Lorazepam (Ativan Tab) 0.5 mg Q4 PRN PO 07/15/17 23:15 08/14/17 23:14 07/17/17 19:47 0.5 MG Multivitamins (Multivitamin Tab) 1 tab DAILY PO 07/16/17 09:00 08/15/17 08:59 07/17/17 08:28 1 TAB Prednisone (PredniSONE TAB) 10 mg DAILY PO 07/16/17 09:00 08/15/17 08:59 07/17/17 08:28 10 MG Tramadol HCl (Ultram Tab) 50 mg Q4H PRN PO 07/15/17 23:15 08/14/17 23:14 07/17/17 18:20 50 MG Calcium/Vitamin D (Caltrate Plus Tab) 3 tab QAM PO 07/16/17 09:00 08/15/17 08:59 07/17/17 08:27 3 TAB Citalopram Hydrobromide (celeXA TAB) 10 mg DAILY PO 07/16/17 09:00 08/15/17 08:59 07/17/17 08:28 10 MG Miscellaneous Information (Order Awaiting Action) 1 ea QS N/A 07/16/17 08:00 08/15/17 07:59 Albuterol/ Ipratropium (Duoneb) 3 ml QIDR INH 07/16/17 08:00 08/15/17 07:59 07/17/17 19:52 3 ML Senna (Senokot Tab) 8.6 mg QAM PO 07/16/17 09:00 08/15/17 08:59 07/17/17 08:28 8.6 MG Docusate Sodium (coLACE CAP) 100 mg BID PO 07/16/17 09:00 08/15/17 08:59 07/17/17 08:28 100 MG Sodium Chloride 1,000 ml @ 75 mls/hr [id number] IV 07/16/17 01:00 08/15/17 00:59 07/17/17 03:11 75 MLS/HR Ciprofloxacin (Ciprofloxacin Tab) 250 mg BID PO 07/17/17 09:00 07/18/17 21:01 07/17/17 08:27 250 MG Hydromorphone HCl (Dilaudid Inj) 0.25 mg Q30M PRN IV 07/17/17 17:00 07/31/17 16:59 07/17/17 16:54 0.25 MG
[2017-07-18] VITALS (15 sets, daily range): BP systolic 132–179; BP diastolic 56–89; PULSE 90–121; TEMP 36.6–38.4; O2SAT 90–97
[2017-07-18] MEDS: HYDROmorphone INJ 1 MG/ML SYR IV PRN (02:08)
[2017-07-18 07:26] LABS: HEMATOCRIT 21.5 % (37-47); HEMOGLOBIN 6.9 g/dL (12.0-16.0); MEAN CELL VOLUME 88.5 fL (80-100); MEAN CORPUSCULAR HEMOGLOBIN 28.4 pg (25-34); MEAN CORPUSCULAR HGB CONC 32.1 g/dl (32-36); RED CELL DISTRIBUTION WIDTH CV 15.5 % (11.5-14.5); RED CELL DISTRIBUTION WIDTH SD 49.9 fL (36.4-46.3); WHITE BLOOD COUNT 10.48 K/uL (4.8-10.8)
[2017-07-18 07:30] LABS: MEAN PLATELET VOLUME 9.7 fL (7.4-10.4); PLATELET COUNT 73 K/uL (130-400)
[2017-07-18] MEDS: ALBUT/IPRATROP 3MG/0.5MG NEB 3 ML VIAL INH SCH ×2 (07:31→11:09)
[2017-07-18 07:32] LABS: CREATININE 0.74 mg/dl (0.60-1.20); POTASSIUM 3.9 mmol/L (3.5-5.1)
[2017-07-18] MEDS ORDERED: ACETAMINOPHEN 325 MG TAB PO ONE (08:00)
[2017-07-18] MEDS: CALCIUM 600MG + VIT D 400 IU TAB PO SCH (08:29)
[2017-07-18] MEDS: CIPROFLOXACIN 250 MG TAB PO SCH ×2 (08:30→20:33)
[2017-07-18] MEDS: CITALOPRAM 20 MG TAB PO SCH (08:30)
[2017-07-18] MEDS: SENNA 8.6 MG TAB PO SCH (08:31)
[2017-07-18] MEDS: MULTIVITAMIN TAB PO SCH (08:31)
[2017-07-18] MEDS: DOCUSATE SODIUM 100 MG CAP PO SCH ×2 (08:31→20:33)
[2017-07-18] MEDS: LORAZEPAM 0.5 MG TAB PO PRN (12:20)
[2017-07-18] MEDS: TRAMADOL HCL 50 MG TAB PO PRN (13:34)
--- NOTE | 2017-07-18 14:38 | PROGRESS NOTE ---
DATE: 07/18/2017 DATE: 07/18/2017 CHIEF COMPLAINT: Status post fracture reverse right total shoulder arthroplasty, postop day #2. PROGRESS: Abigail was seen and examined at bedside today. Overall, she is in good spirits. She is very pleasant. She has some soreness in her arm and a little pain extending into her wrist but it is not too bad. Her friends and family are in the room with her. PHYSICAL EXAMINATION: RIGHT SHOULDER: The dressing is clean and dry and the drain is to suction. The small skin tear on the right wrist is oozing a little bit. She still has a wristdrop. She has no active extension of her wrist and no active extension of her fingers. Otherwise, she is neurovascularly intact. IMPRESSION: 1. Status post fracture reverse right total shoulder arthroplasty, postop day #2. 2. Postoperative radial nerve palsy. PLAN: I went over the prognosis and expectations with her and her family again in the office today. We would expect to be in bilateral arm slings for close to 6 weeks. The radial nerve palsy could take anywhere from weeks to months to return. It can sometimes take as long as 6-9 months to return. Everybody understands that. She has a lot of ecchymosis and her blood counts are running low. She is orthopedically stable for discharge when medically ready. She can do hand, wrist and elbow exercises, but I do not want her used to doing any therapy with the shoulders. If she moves his shoulder a little bit it will be okay and she can adjust the slings to comfort level. I will see her in my office 2 weeks from the surgery for staple removal. Office phone number is [phone].
[2017-07-18] MEDS ORDERED: ACETAMINOPHEN 325 MG TAB PO PRN (14:45)
--- NOTE | 2017-07-18 15:24 | DIAGNOSTIC IMAGING REPORT ---
CHEST ONE VIEW PORTABLE CLINICAL HISTORY: cough dyspnea COMPARISON STUDY: 07/15/2007 FINDINGS: Mild stable cardia megaly. Mild chronic elevation right hemidiaphragm. Chronic atelectatic/fibrotic change left base. Lungs otherwise appear clear. Interval right shoulder arthroplasty are in IMPRESSION: Minimal right shoulder arthroplasty. Chronic change as described. No acute process of the chest currently. The above report was generated using voice recognition software. It may contain grammatical, syntax or spelling errors. Electronically signed by: Ji Sierra M.D. 07/18/2017 3:23 PM Dictated Date/Time: 07/18/2017 3:22 PM
[2017-07-18 15:43] LABS: HEMATOCRIT 23.2 % (37-47); HEMOGLOBIN 7.6 g/dL (12.0-16.0)
[2017-07-18] MEDS ORDERED: ALBUT/IPRATROP 3MG/0.5MG NEB 3 ML VIAL INH PRN (20:00)
--- NOTE | 2017-07-18 22:59 | Progress Note ---
Medicine Progress Note Date & Time of Visit: Jul 18, 2017 at 14:36 . Subjective CC: Follow-up visit for fractures of bilateral humeri and other problems. HPI: Less postop pain. Transfused again this morning for low H/H. No chest pain. Occasional cough. No SOB. No nausea, vomiting, diarrhea. Still has Ly cath. ROS: as noted above in HPI . Objective Last 8 Hrs Date Time Temp Pulse Resp B/P (MAP) Pulse Ox O2 Delivery O2 Flow Rate FiO2 07/18/17 11:12 104 16 97 Nasal Cannula 2.0 07/18/17 11:00 36.8 109 22 179/77 96 2.0 07/18/17 10:01 36.9 111 18 165/75 96 2.0 07/18/17 09:40 95 Nasal Cannula 2.0 07/18/17 09:30 37.4 111 20 165/73 97 2.0 07/18/17 09:00 38.4 114 20 167/74 95 2.0 07/18/17 08:45 37.4 121 18 162/67 95 2.0 07/18/17 08:30 38.1 118 175/75 95 2.0 07/18/17 08:20 37.6 121 18 145/66 91 07/18/17 07:31 90 16 95 Room Air 07/18/17 07:13 37.1 111 22 163/74 (103) 91 Room Air Physical Exam: General- lying in bed; no acute distress Head- right frontotemporal ecchymosis ENT- hard of hearing Lungs- few bibasilar rales, mild wheezing; no respiratory distress Cardiovascular - RRR, II/ sys murmur at base; no JVD; trace pretibial edema Abdomen- normal bowel sounds, soft, nontender Extremities- no cyanosis; hematoma right knee / leg; no calf tenderness; upper extremities immobilized Neuro- alert, oriented Skin- warm and dry; multiple ecchymoses . Laboratory Results: Last 24 Hours Test 07/17/17 15:15 07/18/17 06:31 Hemoglobin 7.6 g/dL 6.9 g/dL Hematocrit 23.6 % 21.5 % White Blood Count 10.48 K/uL Red Blood Count 2.43 M/uL Mean Corpuscular Volume 88.5 fL Mean Corpuscular Hemoglobin 28.4 pg Mean Corpuscular Hemoglobin Concent 32.1 g/dl RDW Standard Deviation 49.9 fL RDW Coefficient of Variation 15.5 % Platelet Count 73 K/uL Mean Platelet Volume 9.7 fL Sodium Level 135 mmol/L Potassium Level 3.9 mmol/L Chloride Level 107 mmol/L Carbon Dioxide Level 25 mmol/L Anion Gap 3.0 mmol/L Blood Urea Nitrogen 16 mg/dl Creatinine 0.74 mg/dl Est Creatinine Clear Calc Drug Dose 60.0 ml/min Estimated GFR () 89.3 Estimated GFR (Non- 77.1 BUN/Creatinine Ratio 22.1 Random Glucose 99 mg/dl Calcium Level 7.0 mg/dl Assessment & Plan BILATERAL HUMERAL FRACTURES Ortho consulted. Bilateral ORIF's performed 07/16/17. Titrate analgesics. OSTEOPOROSIS Vitamin D level = 38. Continue replacement. ACUTE BLOOD LOSS ANEMIA Hgb 12.1 --> --> 6.1. Acute blood loss anemia secondary to hematoma from fall. 1 unit pRBC's 07/17/17. Hgb today = 6.9. Transfused 2nd unit of pRBC's today. Follow H/H. CLL Status discussed with Heme / Onc. Ibrutinib should be held for 7 days because of bleeding risk. CHRONIC STEROID THERAPY On prednisone 10 mg daily for CLL. Received IV hydrocortisone preop. VTE PROPHYLAXIS SCD's. No anticoagulants due to thrombocytopenia and RLE hematoma. Ambulate as able. DISPOSITION To be determined. May need skilled care or inpt rehab vs home care with 24-hour services. Case Management following. Internal Medicine follow-up with Dr. Tita Garcia. Hematology / Oncology follow-up with Dr. Mtz. Daughter visiting and given update. . Current Inpatient Medications: Current Inpatient Medications Medications (Trade) Dose Ordered Sig/Jazmine Route Start Time Stop Time Status Last Admin Dose Admin Lorazepam (Ativan Tab) 0.5 mg Q4 PRN PO 07/15/17 23:15 08/14/17 23:14 07/18/17 12:20 0.5 MG Multivitamins (Multivitamin Tab) 1 tab DAILY PO 07/16/17 09:00 08/15/17 08:59 07/18/17 08:31 1 TAB Prednisone (PredniSONE TAB) 10 mg DAILY PO 07/16/17 09:00 08/15/17 08:59 07/18/17 08:31 10 MG Tramadol HCl (Ultram Tab) 50 mg Q4H PRN PO 07/15/17 23:15 08/14/17 23:14 07/18/17 13:34 50 MG Calcium/Vitamin D (Caltrate Plus Tab) 3 tab QAM PO 07/16/17 09:00 08/15/17 08:59 07/18/17 08:29 3 TAB Citalopram Hydrobromide (celeXA TAB) 10 mg DAILY PO 07/16/17 09:00 08/15/17 08:59 07/18/17 08:30 10 MG Albuterol/ Ipratropium (Duoneb) 3 ml QIDR INH 07/16/17 08:00 08/15/17 07:59 07/18/17 11:09 3 ML Senna (Senokot Tab) 8.6 mg QAM PO 07/16/17 09:00 08/15/17 08:59 07/18/17 08:31 8.6 MG Docusate Sodium (coLACE CAP) 100 mg BID PO 07/16/17 09:00 08/15/17 08:59 07/18/17 08:31 100 MG Ciprofloxacin (Ciprofloxacin Tab) 250 mg BID PO 07/17/17 09:00 07/18/17 21:01 07/18/17 08:30 250 MG Hydromorphone HCl (Dilaudid Inj) 0.25 mg Q30M PRN IV 07/17/17 17:00 07/31/17 16:59 07/18/17 02:08 0.25 MG
[2017-07-19] MEDS: TRAMADOL HCL 50 MG TAB PO PRN ×4 (03:39→20:08)
[2017-07-19 07:28] VITALS: BP 140/80; PULSE 101; TEMP 36.9; O2SAT 93
[2017-07-19] MEDS: CALCIUM 600MG + VIT D 400 IU TAB PO SCH (09:12)
[2017-07-19] MEDS: SENNA 8.6 MG TAB PO SCH (09:13)
[2017-07-19] MEDS: MULTIVITAMIN TAB PO SCH (09:13)
[2017-07-19] MEDS: CITALOPRAM 20 MG TAB PO SCH (09:13)
--- NOTE | 2017-07-19 09:24 | Progress Note ---
Medicine Progress Note Date & Time of Visit: Jul 19, 2017 at 09:10 . Subjective CC: Follow-up visit for fractures of bilateral humeri and other problems. HPI: Less postop pain. No chest pain. Occasional cough. No SOB. No nausea, vomiting, diarrhea; passing flatus, but no stool postop. Still has Ly cath and reluctant to have it removed yet. No fever. ROS: as noted above in HPI . Objective Last 8 Hrs Date Time Temp Pulse Resp B/P (MAP) Pulse Ox O2 Delivery O2 Flow Rate FiO2 07/19/17 07:28 36.9 101 20 140/80 (100) 93 Room Air Physical Exam: General- lying in bed; no acute distress Head- right frontotemporal ecchymosis ENT- hard of hearing Lungs- essentially clear; no respiratory distress Cardiovascular - RRR, II/ sys murmur at base; no JVD; trace pretibial edema Abdomen- normal bowel sounds, soft, nontender Extremities- no cyanosis; hematoma right knee / leg; no calf tenderness; upper extremities immobilized Neuro- alert, oriented Skin- warm and dry; multiple ecchymoses . Laboratory Results: Last 24 Hours Test 07/18/17 15:22 07/19/17 08:52 Hemoglobin 7.6 g/dL Hematocrit 23.2 % Assessment & Plan BILATERAL HUMERAL FRACTURES Ortho consulted. Bilateral ORIF's performed 07/16/17. Titrate analgesics. OSTEOPOROSIS Vitamin D level = 38. Continue replacement. ACUTE BLOOD LOSS ANEMIA Hgb 12.1 --> --> 6.1. Acute blood loss anemia secondary to hematoma from fall. Has received 2 units of pRBC's. Today's CBC pending. Transfuse to maintain Hgb > 8. Follow H/H. CLL Status discussed with Heme / Onc. Ibrutinib should be held for 7 days because of bleeding risk. CHRONIC STEROID THERAPY On prednisone 10 mg daily for CLL. Received IV hydrocortisone periop. VTE PROPHYLAXIS SCD's. No anticoagulants due to thrombocytopenia and RLE hematoma. Ambulate as able. DISPOSITION To be determined. May need skilled care or inpt rehab vs home care with 24-hour services. Case Management following. Internal Medicine follow-up with Dr. Tita Garcia. Hematology / Oncology follow-up with Dr. Mtz. . Current Inpatient Medications: Current Inpatient Medications Medications (Trade) Dose Ordered Sig/Jazmine Route Start Time Stop Time Status Last Admin Dose Admin Lorazepam (Ativan Tab) 0.5 mg Q4 PRN PO 07/15/17 23:15 08/14/17 23:14 07/18/17 12:20 0.5 MG Multivitamins (Multivitamin Tab) 1 tab DAILY PO 07/16/17 09:00 08/15/17 08:59 07/19/17 09:13 1 TAB Prednisone (PredniSONE TAB) 10 mg DAILY PO 07/16/17 09:00 08/15/17 08:59 07/19/17 09:13 10 MG Tramadol HCl (Ultram Tab) 50 mg Q4H PRN PO 07/15/17 23:15 08/14/17 23:14 07/19/17 03:39 50 MG Calcium/Vitamin D (Caltrate Plus Tab) 3 tab QAM PO 07/16/17 09:00 08/15/17 08:59 07/19/17 09:12 3 TAB Citalopram Hydrobromide (celeXA TAB) 10 mg DAILY PO 07/16/17 09:00 08/15/17 08:59 07/19/17 09:13 10 MG Senna (Senokot Tab) 8.6 mg QAM PO 07/16/17 09:00 08/15/17 08:59 07/19/17 09:13 8.6 MG Docusate Sodium (coLACE CAP) 100 mg BID PO 07/16/17 09:00 08/15/17 08:59 07/18/17 20:33 100 MG Hydromorphone HCl (Dilaudid Inj) 0.25 mg Q30M PRN IV 07/17/17 17:00 07/31/17 16:59 07/18/17 02:08 0.25 MG Albuterol/ Ipratropium (Duoneb) 3 ml Q6H PRN INH 07/18/17 20:00 08/15/17 07:59 Acetaminophen (Tylenol Tab) 650 mg Q6H PRN PO 07/18/17 14:45 08/17/17 14:44
[2017-07-19 09:33] LABS: HEMOGLOBIN 8.2 g/dL (12.0-16.0); MEAN CELL VOLUME 88.3 fL (80-100); MEAN CORPUSCULAR HGB CONC 32.8 g/dl (32-36); RED CELL DISTRIBUTION WIDTH CV 15.5 % (11.5-14.5); RED CELL DISTRIBUTION WIDTH SD 50.1 fL (36.4-46.3); WHITE BLOOD COUNT 8.88 K/uL (4.8-10.8)
[2017-07-19] MEDS: DOCUSATE SODIUM 100 MG CAP PO SCH ×2 (09:35→20:08)
[2017-07-19 10:02] LABS: CALCIUM 7.7 mg/dl (8.5-10.1); CREATININE 0.66 mg/dl (0.60-1.20); POTASSIUM 3.9 mmol/L (3.5-5.1)
[2017-07-19 10:03] LABS: MEAN PLATELET VOLUME 9.6 fL (7.4-10.4); PLATELET COUNT 87 K/uL (130-400)
[2017-07-19 10:57] VITALS: PULSE 114; O2SAT 96
[2017-07-19 15:37] VITALS: BP 139/71; PULSE 106; TEMP 36.9; O2SAT 94
[2017-07-19 23:12] VITALS: BP 146/76; PULSE 95; TEMP 36.9; O2SAT 95
[2017-07-20 00:27] VITALS: BP 145/69; PULSE 104; TEMP 36.8; O2SAT 96
[2017-07-20] MEDS: TRAMADOL HCL 50 MG TAB PO PRN ×3 (04:59→20:32)
[2017-07-20 07:51] LABS: HEMATOCRIT 24.8 % (37-47); MEAN CELL VOLUME 88.9 fL (80-100); MEAN CORPUSCULAR HEMOGLOBIN 28.7 pg (25-34); MEAN CORPUSCULAR HGB CONC 32.3 g/dl (32-36); RED CELL DISTRIBUTION WIDTH CV 15.6 % (11.5-14.5); RED CELL DISTRIBUTION WIDTH SD 49.7 fL (36.4-46.3)
[2017-07-20 08:15] LABS: MEAN PLATELET VOLUME 9.6 fL (7.4-10.4); PLATELET COUNT 95 K/uL (130-400)
[2017-07-20 08:17] VITALS: BP 148/77; PULSE 96; TEMP 37; O2SAT 94
[2017-07-20 08:27] LABS: CREATININE 0.59 mg/dl (0.60-1.20); POTASSIUM 3.9 mmol/L (3.5-5.1)
[2017-07-20] MEDS: DOCUSATE SODIUM 100 MG CAP PO SCH ×2 (09:31→20:32)
[2017-07-20] MEDS: CITALOPRAM 20 MG TAB PO SCH (09:31)
[2017-07-20] MEDS: SENNA 8.6 MG TAB PO SCH (09:32)
[2017-07-20] MEDS: CALCIUM 600MG + VIT D 400 IU TAB PO SCH (09:33)
[2017-07-20] MEDS: MULTIVITAMIN TAB PO SCH (09:33)
[2017-07-20] MEDS: HYDROmorphone INJ 1 MG/ML SYR IV PRN ×2 (11:28→15:37)
[2017-07-20 14:03] VITALS: PULSE 128; O2SAT 94
[2017-07-20 15:11] VITALS: BP 121/62; PULSE 111; TEMP 37.4; O2SAT 94
--- NOTE | 2017-07-20 21:47 | PROGRESS NOTE ---
DATE: 07/20/2017 CHIEF COMPLAINT: Status post right fracture reverse shoulder arthroplasty postop day #4. PROGRESS: Abigail was seen and examined at bedside today. She is still in good spirits. She has a lot of family and friends in the room with her. She has been up and ambulating some with physical therapy. She still has a Ly in place. She is not in a lot of pain and has no complaints. PHYSICAL EXAMINATION: The incision, the og are open. The area of incision is clean and dry without any drainage. She still has a lot of ecchymosis, but seems to be improving. Her wrist and hand are also improving some. She now has extension of her fingers. She does not have much extension of her wrist. LABORATORY DATA: Her H&H has improved to 8.0 and 24.8. Her glucose is 98. She still has a Ly catheter in place. IMPRESSION: 1. Status post fracture reverse right shoulder arthroplasty postop day #4. 2. Radial nerve palsy that is improving. PLAN: At this point, she is doing fairly well. She seems to be in good spirits. I am optimistic that she already has extension of her fingers and the radial nerve palsy should resolve shortly. She will be in bilateral arm slings for about 6 weeks. I want to see her in my office 2 weeks from the day of surgery for staple removal on the right and x-rays of the left. I talked to family in the room as well. I will sign off but please call me in my personal cell phone if there are any other issues, my personal cell is [phone].
--- NOTE | 2017-07-20 23:30 | Progress Note ---
Medicine Progress Note Date & Time of Visit: Jul 20, 2017 at 18:40 . Subjective CC: Follow-up visit for fractures of bilateral humeri and other problems. HPI: No fever. No chest pain. Occasional cough. No SOB. No nausea, vomiting, diarrhea; passing flatus and stool. Still has Horner cath and reluctant to have it removed yet. Intermittent postop pain. Family visiting. ROS: as noted above in HPI . Objective Last 8 Hrs Date Time Temp Pulse Resp B/P (MAP) Pulse Ox O2 Delivery O2 Flow Rate FiO2 07/20/17 15:30 Room Air 07/20/17 15:11 37.4 111 18 121/62 (81) 94 Room Air 07/20/17 14:03 128 94 Physical Exam: General- lying in bed; no acute distress Head- right frontotemporal ecchymosis ENT- hard of hearing Lungs- essentially clear; no respiratory distress Cardiovascular - RRR, II/ sys murmur at base; no JVD; trace pretibial edema Abdomen- normal bowel sounds, soft, nontender Extremities- no cyanosis; hematoma right knee / leg; no calf tenderness; upper extremities immobilized Neuro- alert, oriented Skin- warm and dry; multiple ecchymoses . Laboratory Results: Last 24 Hours Test 07/20/17 07:30 White Blood Count 7.50 K/uL Red Blood Count 2.79 M/uL Hemoglobin 8.0 g/dL Hematocrit 24.8 % Mean Corpuscular Volume 88.9 fL Mean Corpuscular Hemoglobin 28.7 pg Mean Corpuscular Hemoglobin Concent 32.3 g/dl RDW Standard Deviation 49.7 fL RDW Coefficient of Variation 15.6 % Platelet Count 95 K/uL Mean Platelet Volume 9.6 fL Sodium Level 137 mmol/L Potassium Level 3.9 mmol/L Chloride Level 105 mmol/L Carbon Dioxide Level 25 mmol/L Anion Gap 8.0 mmol/L Blood Urea Nitrogen 21 mg/dl Creatinine 0.59 mg/dl Est Creatinine Clear Calc Drug Dose 75.2 ml/min Estimated GFR () 101.0 Estimated GFR (Non- 87.2 BUN/Creatinine Ratio 35.4 Random Glucose 98 mg/dl Calcium Level 8.0 mg/dl Assessment & Plan BILATERAL HUMERAL FRACTURES Ortho consulted. Bilateral ORIF's performed 07/16/17. Titrate analgesics. OSTEOPOROSIS Vitamin D level = 38. Continue replacement. ACUTE BLOOD LOSS ANEMIA Hgb 12.1 --> --> 6.1. Acute blood loss anemia secondary to hematoma from fall. Has received 2 units of pRBC's. Hgb today = 8.0. Transfuse to maintain Hgb > 8. Follow H/H. CLL Status discussed with Heme / Onc. Ibrutinib should be held for 7 days because of bleeding risk. CHRONIC STEROID THERAPY On prednisone 10 mg daily for CLL. Received IV hydrocortisone periop. UTI (present on admission) Diagnosed prior to admission. Discontinue ciprofloxacin when Horner removed. HORNER CATH Patient has been reluctant to have Horner removed because of her multiple injuries. Will DC tomorrow if able. VTE PROPHYLAXIS SCD's. No anticoagulants due to thrombocytopenia and RLE hematoma. Ambulate as able. DISPOSITION To be determined. May need skilled care or inpt rehab vs home care with 24-hour services. Case Management following. Internal Medicine follow-up with Dr. Tita Garcia. Hematology / Oncology follow-up with Dr. Mtz. . Current Inpatient Medications: Current Inpatient Medications Medications (Trade) Dose Ordered Sig/Jazmine Route Start Time Stop Time Status Last Admin Dose Admin Lorazepam (Ativan Tab) 0.5 mg Q4 PRN PO 07/15/17 23:15 08/14/17 23:14 07/18/17 12:20 0.5 MG Multivitamins (Multivitamin Tab) 1 tab DAILY PO 07/16/17 09:00 08/15/17 08:59 07/20/17 09:33 1 TAB Prednisone (PredniSONE TAB) 10 mg DAILY PO 07/16/17 09:00 08/15/17 08:59 07/20/17 09:32 10 MG Tramadol HCl (Ultram Tab) 50 mg Q4H PRN PO 07/15/17 23:15 08/14/17 23:14 07/20/17 09:47 50 MG Calcium/Vitamin D (Caltrate Plus Tab) 3 tab QAM PO 07/16/17 09:00 08/15/17 08:59 07/20/17 09:33 3 TAB Citalopram Hydrobromide (celeXA TAB) 10 mg DAILY PO 07/16/17 09:00 08/15/17 08:59 07/20/17 09:31 10 MG Senna (Senokot Tab) 8.6 mg QAM PO 07/16/17 09:00 08/15/17 08:59 07/20/17 09:32 8.6 MG Docusate Sodium (coLACE CAP) 100 mg BID PO 07/16/17 09:00 08/15/17 08:59 07/20/17 09:31 100 MG Hydromorphone HCl (Dilaudid Inj) 0.25 mg Q30M PRN IV 07/17/17 17:00 07/31/17 16:59 07/20/17 15:37 0.25 MG Albuterol/ Ipratropium (Duoneb) 3 ml Q6H PRN INH 07/18/17 20:00 08/15/17 07:59 Acetaminophen (Tylenol Tab) 650 mg Q6H PRN PO 07/18/17 14:45 08/17/17 14:44
[2017-07-21 00:27] VITALS: BP 145/69; PULSE 104; TEMP 36.8; O2SAT 96
[2017-07-21] MEDS: TRAMADOL HCL 50 MG TAB PO PRN ×3 (02:42→23:15)
[2017-07-21 07:16] LABS: HEMATOCRIT 27.1 % (37-47); HEMOGLOBIN 8.7 g/dL (12.0-16.0); MEAN CORPUSCULAR HEMOGLOBIN 28.2 pg (25-34); MEAN CORPUSCULAR HGB CONC 32.1 g/dl (32-36); MEAN PLATELET VOLUME 9.4 fL (7.4-10.4); PLATELET COUNT 122 K/uL (130-400); RED CELL DISTRIBUTION WIDTH CV 15.8 % (11.5-14.5); RED CELL DISTRIBUTION WIDTH SD 50.1 fL (36.4-46.3); WHITE BLOOD COUNT 6.78 K/uL (4.8-10.8)
[2017-07-21 07:35] VITALS: BP 175/77; PULSE 94; TEMP 36.8; O2SAT 97
[2017-07-21 07:53] LABS: CALCIUM 8.9 mg/dl (8.5-10.1); CREATININE 0.66 mg/dl (0.60-1.20); POTASSIUM 3.8 mmol/L (3.5-5.1)
[2017-07-21] MEDS: SENNA 8.6 MG TAB PO SCH (09:54)
[2017-07-21] MEDS: CITALOPRAM 20 MG TAB PO SCH (09:55)
[2017-07-21] MEDS: CALCIUM 600MG + VIT D 400 IU TAB PO SCH (09:56)
[2017-07-21] MEDS: DOCUSATE SODIUM 100 MG CAP PO SCH ×2 (09:56→21:31)
[2017-07-21] MEDS: MULTIVITAMIN TAB PO SCH (09:56)
[2017-07-21 15:52] VITALS: BP 135/81; PULSE 96; TEMP 37; O2SAT 97
--- NOTE | 2017-07-21 20:32 | Progress Note ---
Medicine Progress Note Date & Time of Visit: Jul 21, 2017 at 17:00 . Subjective CC: Follow-up visit for multiple problems. HPI: Horner removed this morning; voiding without difficulty since. Having postop pain, severe at times. Ambulating with gait belt and assistance. ROS: General- no fever, no chills Resp- no cough; no shortness of breath Cardiac- no chest pain, no edema GI- no nausea, no vomiting, no diarrhea, no constipation - as noted above in HPI . Objective Last 8 Hrs Date Time Temp Pulse Resp B/P (MAP) Pulse Ox O2 Delivery O2 Flow Rate FiO2 07/21/17 15:52 37.0 96 18 135/81 (99) 97 Room Air 07/21/17 15:30 Room Air Physical Exam: General- lying in bed; no acute distress Head- right frontotemporal ecchymosis resolving ENT- hard of hearing Lungs- few basilar rales, improve with deep inspiration; no respiratory distress Cardiovascular - RRR, II/ sys murmur at base; no JVD; trace pretibial edema Abdomen- normal bowel sounds, soft, nontender Extremities- no cyanosis; hematoma right knee / leg; no calf tenderness; upper extremities immobilized Neuro- alert, oriented Skin- warm and dry; multiple ecchymoses upper and lower extremities . Laboratory Results: Last 24 Hours Test 07/21/17 06:22 White Blood Count 6.78 K/uL Red Blood Count 3.08 M/uL Hemoglobin 8.7 g/dL Hematocrit 27.1 % Mean Corpuscular Volume 88.0 fL Mean Corpuscular Hemoglobin 28.2 pg Mean Corpuscular Hemoglobin Concent 32.1 g/dl RDW Standard Deviation 50.1 fL RDW Coefficient of Variation 15.8 % Platelet Count 122 K/uL Mean Platelet Volume 9.4 fL Sodium Level 135 mmol/L Potassium Level 3.8 mmol/L Chloride Level 102 mmol/L Carbon Dioxide Level 28 mmol/L Anion Gap 5.0 mmol/L Blood Urea Nitrogen 23 mg/dl Creatinine 0.66 mg/dl Est Creatinine Clear Calc Drug Dose 67.2 ml/min Estimated GFR () 97.4 Estimated GFR (Non- 84.0 BUN/Creatinine Ratio 34.0 Random Glucose 105 mg/dl Calcium Level 8.9 mg/dl Assessment & Plan BILATERAL HUMERAL FRACTURES Ortho consulted. Bilateral ORIF's performed 07/16/17. Titrate analgesics. OSTEOPOROSIS Vitamin D level = 38. Continue replacement. ACUTE BLOOD LOSS ANEMIA Hgb 12.1 --> --> 6.1. Acute blood loss anemia secondary to hematoma from fall. Has received 2 units of pRBC's. Hgb today = 8.7. Transfuse to maintain Hgb > 8. Follow H/H. CLL Status discussed with Heme / Onc. Ibrutinib should be held for 7 days because of bleeding risk. WBC today = 6780. CHRONIC STEROID THERAPY On prednisone 10 mg daily for CLL. Received IV hydrocortisone periop. UTI (present on admission) Diagnosed prior to admission. Has received adequate course of therapy. Discontinue ciprofloxacin. HORNER CATH Patient has been reluctant to have Horner removed because of her multiple injuries. Discontinued this a.m. VTE PROPHYLAXIS SCD's. No anticoagulants due to thrombocytopenia and RLE hematoma. Ambulate as able. DISPOSITION To be determined. May need skilled care or inpt rehab vs home care with 24-hour services. Case Management following. Internal Medicine follow-up with Dr. Tita Garcia. Hematology / Oncology follow-up with Dr. Mtz. . Current Inpatient Medications: Current Inpatient Medications Medications (Trade) Dose Ordered Sig/Jazmine Route Start Time Stop Time Status Last Admin Dose Admin Lorazepam (Ativan Tab) 0.5 mg Q4 PRN PO 07/15/17 23:15 08/14/17 23:14 07/18/17 12:20 0.5 MG Multivitamins (Multivitamin Tab) 1 tab DAILY PO 07/16/17 09:00 08/15/17 08:59 07/21/17 09:56 1 TAB Prednisone (PredniSONE TAB) 10 mg DAILY PO 07/16/17 09:00 08/15/17 08:59 07/21/17 09:56 10 MG Tramadol HCl (Ultram Tab) 50 mg Q4H PRN PO 07/15/17 23:15 08/14/17 23:14 07/21/17 15:03 50 MG Calcium/Vitamin D (Caltrate Plus Tab) 3 tab QAM PO 07/16/17 09:00 08/15/17 08:59 07/21/17 09:56 3 TAB Citalopram Hydrobromide (celeXA TAB) 10 mg DAILY PO 07/16/17 09:00 08/15/17 08:59 07/21/17 09:55 10 MG Senna (Senokot Tab) 8.6 mg QAM PO 07/16/17 09:00 08/15/17 08:59 07/21/17 09:54 8.6 MG Docusate Sodium (coLACE CAP) 100 mg BID PO 07/16/17 09:00 08/15/17 08:59 07/21/17 09:56 100 MG Hydromorphone HCl (Dilaudid Inj) 0.25 mg Q30M PRN IV 07/17/17 17:00 07/31/17 16:59 07/20/17 15:37 0.25 MG Albuterol/ Ipratropium (Duoneb) 3 ml Q6H PRN INH 07/18/17 20:00 08/15/17 07:59 Acetaminophen (Tylenol Tab) 650 mg Q6H PRN PO 07/18/17 14:45 08/17/17 14:44
[2017-07-21 21:38] VITALS: PULSE 103; O2SAT 97
[2017-07-21 22:50] VITALS: BP 164/88; PULSE 109; TEMP 36.8; O2SAT 98
[2017-07-22 06:12] LABS: HEMATOCRIT 27.1 % (37-47); HEMOGLOBIN 8.9 g/dL (12.0-16.0); MEAN CELL VOLUME 88.9 fL (80-100); MEAN CORPUSCULAR HEMOGLOBIN 29.2 pg (25-34); MEAN CORPUSCULAR HGB CONC 32.8 g/dl (32-36); MEAN PLATELET VOLUME 8.9 fL (7.4-10.4); PLATELET COUNT 131 K/uL (130-400); RED CELL DISTRIBUTION WIDTH CV 15.9 % (11.5-14.5); RED CELL DISTRIBUTION WIDTH SD 50.8 fL (36.4-46.3); WHITE BLOOD COUNT 7.29 K/uL (4.8-10.8)
[2017-07-22 06:43] LABS: CALCIUM 8.4 mg/dl (8.5-10.1); CREATININE 0.73 mg/dl (0.60-1.20); POTASSIUM 3.9 mmol/L (3.5-5.1)
[2017-07-22 07:03] VITALS: BP 121/65; PULSE 98; TEMP 36.7; O2SAT 98
[2017-07-22] MEDS: MULTIVITAMIN TAB PO SCH (09:36)
[2017-07-22] MEDS: CITALOPRAM 20 MG TAB PO SCH (09:36)
[2017-07-22] MEDS: SENNA 8.6 MG TAB PO SCH (09:36)
[2017-07-22] MEDS: CALCIUM 600MG + VIT D 400 IU TAB PO SCH (09:36)
[2017-07-22] MEDS: DOCUSATE SODIUM 100 MG CAP PO SCH ×2 (09:36→20:44)
[2017-07-22] MEDS: TRAMADOL HCL 50 MG TAB PO PRN ×2 (12:59→20:44)
[2017-07-22] MEDS: HYDROmorphone INJ 1 MG/ML SYR IV PRN (13:16)
--- NOTE | 2017-07-22 14:46 | DIAGNOSTIC IMAGING REPORT ---
L HUMERUS MIN 2 VIEWS ROUTINE HISTORY: 81 years-old Female severe postop pain severe left shoulder pain COMPARISON: Chest radiograph 07/18/2017, left shoulder radiographs 07/15/2017 TECHNIQUE: 2 views of the left shoulder FINDINGS: The bones appear least mildly demineralized. Comminuted fracture of the proximal humerus is noted with multiple displaced fragments, largest which measures up to 2.7 cm displaced superiorly adjacent to the super aspect of the humeral head. Fracture lines involve the greater tuberosity, humeral neck and possibly the lesser tuberosity as well. Impaction of approximately 11 mm redemonstrated. No dislocation. IMPRESSION: Comminuted impacted and mildly displaced proximal humerus fracture as above. The above report was generated using voice recognition software. It may contain grammatical, syntax or spelling errors. Electronically signed by: Noel Petit M.D. 07/22/2017 2:45 PM Dictated Date/Time: 07/22/2017 2:41 PM
--- NOTE | 2017-07-22 20:57 | Progress Note ---
Medicine Progress Note Date & Time of Visit: Jul 22, 2017 at 17:40 . Subjective CC: Follow-up visit for multiple problems. HPI: Sudden onset of severe left arm pain this afternoon. Pain improved after administration of analgesics. Ambulating with assistance. ROS: General- no fever, no chills Resp- no cough; no shortness of breath Cardiac- no chest pain, no edema GI- no nausea, no vomiting, no diarrhea, no constipation - voiding without difficulty. . Objective VS @ 07:03: 36.7 98 18 121/65 . Physical Exam: General- lying in bed; no acute distress at time of my assessment Head- right frontotemporal ecchymosis resolving ENT- hard of hearing Lungs- atelectatic rales; no respiratory distress Cardiovascular - RRR, II/ sys murmur at base; no JVD; trace pretibial edema Abdomen- normal bowel sounds, soft, nontender Extremities- no cyanosis; hematoma right knee / leg; no calf tenderness; upper extremities immobilized Neuro- alert, oriented Skin- warm and dry; multiple ecchymoses upper and lower extremities . Laboratory Results: Last 24 Hours Test 07/22/17 05:51 White Blood Count 7.29 K/uL Red Blood Count 3.05 M/uL Hemoglobin 8.9 g/dL Hematocrit 27.1 % Mean Corpuscular Volume 88.9 fL Mean Corpuscular Hemoglobin 29.2 pg Mean Corpuscular Hemoglobin Concent 32.8 g/dl RDW Standard Deviation 50.8 fL RDW Coefficient of Variation 15.9 % Platelet Count 131 K/uL Mean Platelet Volume 8.9 fL Sodium Level 136 mmol/L Potassium Level 3.9 mmol/L Chloride Level 101 mmol/L Carbon Dioxide Level 28 mmol/L Anion Gap 7.0 mmol/L Blood Urea Nitrogen 24 mg/dl Creatinine 0.73 mg/dl Est Creatinine Clear Calc Drug Dose 60.8 ml/min Estimated GFR () 90.8 Estimated GFR (Non- 78.3 BUN/Creatinine Ratio 33.5 Random Glucose 95 mg/dl Calcium Level 8.4 mg/dl Assessment & Plan BILATERAL HUMERAL FRACTURES Fell at home on outstretched arms. X-ray right shoulder demonstrated comminuted fractures of the humeral head and neck with dislocation. X-ray of left shoulder demonstrated impacted humeral neck fracture. Ortho consulted. Reverse right shoulder arthroplasty performed by Dr. Oh 07/16/17. Nonsurgical management of left humeral fracture recommended. Titrate analgesics. OSTEOPOROSIS Vitamin D level = 38. Continue replacement. ACUTE BLOOD LOSS ANEMIA Hgb 12.1 --> --> 6.1. Acute blood loss anemia secondary to hematoma from fall. Has received 2 units of pRBC's. Hgb today = 8.9. Transfuse to maintain Hgb > 8. Follow H/H. CLL Status discussed with Heme / Onc. Ibrutinib should be held for at least 7 days because of bleeding risk. WBC today = 7290. To see Heme / Onc in clinic; they will determine when to resume ibrutinib. CHRONIC STEROID THERAPY On prednisone 10 mg daily for CLL. Received IV hydrocortisone periop. UTI (present on admission) Diagnosed prior to admission. Has received adequate course of therapy. Discontinued ciprofloxacin. VTE PROPHYLAXIS SCD's. No anticoagulants due to thrombocytopenia and RLE hematoma. Ambulate as able. DISPOSITION Needs inpatient rehab. Case Management following. Internal Medicine follow-up with Dr. Tita Garcia. Hematology / Oncology follow-up with Dr. Mtz. . Current Inpatient Medications: Current Inpatient Medications Medications (Trade) Dose Ordered Sig/Jazmine Route Start Time Stop Time Status Last Admin Dose Admin Lorazepam (Ativan Tab) 0.5 mg Q4 PRN PO 07/15/17 23:15 08/14/17 23:14 07/18/17 12:20 0.5 MG Multivitamins (Multivitamin Tab) 1 tab DAILY PO 07/16/17 09:00 08/15/17 08:59 07/22/17 09:36 1 TAB Prednisone (PredniSONE TAB) 10 mg DAILY PO 07/16/17 09:00 08/15/17 08:59 07/22/17 09:36 10 MG Tramadol HCl (Ultram Tab) 50 mg Q4H PRN PO 07/15/17 23:15 08/14/17 23:14 07/22/17 20:44 50 MG Calcium/Vitamin D (Caltrate Plus Tab) 3 tab QAM PO 07/16/17 09:00 08/15/17 08:59 07/22/17 09:36 3 TAB Citalopram Hydrobromide (celeXA TAB) 10 mg DAILY PO 07/16/17 09:00 08/15/17 08:59 07/22/17 09:36 10 MG Senna (Senokot Tab) 8.6 mg QAM PO 07/16/17 09:00 08/15/17 08:59 07/22/17 09:36 8.6 MG Docusate Sodium (coLACE CAP) 100 mg BID PO 07/16/17 09:00 08/15/17 08:59 07/22/17 09:36 100 MG Hydromorphone HCl (Dilaudid Inj) 0.25 mg Q30M PRN IV 07/17/17 17:00 07/31/17 16:59 07/22/17 13:16 0.25 MG Albuterol/ Ipratropium (Duoneb) 3 ml Q6H PRN INH 07/18/17 20:00 08/15/17 07:59 Acetaminophen (Tylenol Tab) 650 mg Q6H PRN PO 07/18/17 14:45 08/17/17 14:44
[2017-07-23 00:15] VITALS: BP 148/81; PULSE 98; TEMP 36.8; O2SAT 98
[2017-07-23 07:57] VITALS: BP 145/80; PULSE 95; TEMP 36.8; O2SAT 96
[2017-07-23] MEDS: DOCUSATE SODIUM 100 MG CAP PO SCH (09:07)
[2017-07-23] MEDS: MULTIVITAMIN TAB PO SCH (09:07)
[2017-07-23] MEDS: SENNA 8.6 MG TAB PO SCH (09:07)
[2017-07-23] MEDS: TRAMADOL HCL 50 MG TAB PO PRN ×2 (09:07→13:06)
[2017-07-23] MEDS: CITALOPRAM 20 MG TAB PO SCH (09:08)
[2017-07-23] MEDS: CALCIUM 600MG + VIT D 400 IU TAB PO SCH (09:08)
[2017-07-23 10:23] LABS: HEMATOCRIT 28.8 % (37-47); HEMOGLOBIN 9.3 g/dL (12.0-16.0); MEAN CELL VOLUME 89.7 fL (80-100); MEAN CORPUSCULAR HGB CONC 32.3 g/dl (32-36); PLATELET COUNT 156 K/uL (130-400); RED CELL DISTRIBUTION WIDTH CV 16.3 % (11.5-14.5); RED CELL DISTRIBUTION WIDTH SD 52.1 fL (36.4-46.3); WHITE BLOOD COUNT 8.33 K/uL (4.8-10.8)
[2017-07-23 10:41] LABS: CALCIUM 8.2 mg/dl (8.5-10.1); CREATININE 1.01 mg/dl (0.60-1.20); POTASSIUM 3.9 mmol/L (3.5-5.1)
[2017-07-23] MEDS: LORAZEPAM 0.5 MG TAB PO PRN (12:38)
[2017-07-23 14:07] VITALS: BP 145/80; PULSE 95; TEMP 36.8; O2SAT 96
--- NOTE | 2017-07-23 16:06 | Progress Note ---
Medicine Progress Note Date & Time of Visit: Jul 23, 2017 at ~ 11:00 . Subjective CC: Follow-up visit for multiple problems. HPI: Doing well today. Participating in therapies. Premedicated with tramadol and had no severe pain. Has some post nasal drainage and occasional cough, no fever or SOB. No nausea or vomiting. Urine concentrated; no dysuria. ROS: General- no fever, no chills Resp- as noted above in HPI Cardiac- no chest pain, no edema GI- no nausea, no vomiting, no diarrhea, no constipation - voiding without difficulty. . Objective Last 8 Hrs Date Time Temp Pulse Resp B/P (MAP) Pulse Ox O2 Delivery O2 Flow Rate FiO2 07/23/17 14:07 36.8 95 18 96 Room Air 07/23/17 07:57 36.8 95 18 145/80 (101) 96 Room Air Physical Exam: General- sitting in chair; no distress Head- resolving right frontotemporal ecchymosis ENT- hard of hearing Lungs- clear to auscultation; no respiratory distress Cardiovascular - RRR, II/ sys murmur at base; no JVD; trace pretibial edema Abdomen- normal bowel sounds, soft, nontender Extremities- no cyanosis; hematoma right knee / leg; no calf tenderness; upper extremities immobilized Neuro- alert, oriented Skin- warm and dry; multiple ecchymoses upper and lower extremities . Laboratory Results: Last 24 Hours Test 07/23/17 10:11 White Blood Count 8.33 K/uL Red Blood Count 3.21 M/uL Hemoglobin 9.3 g/dL Hematocrit 28.8 % Mean Corpuscular Volume 89.7 fL Mean Corpuscular Hemoglobin 29.0 pg Mean Corpuscular Hemoglobin Concent 32.3 g/dl RDW Standard Deviation 52.1 fL RDW Coefficient of Variation 16.3 % Platelet Count 156 K/uL Mean Platelet Volume 9.0 fL Sodium Level 133 mmol/L Potassium Level 3.9 mmol/L Chloride Level 101 mmol/L Carbon Dioxide Level 25 mmol/L Anion Gap 7.0 mmol/L Blood Urea Nitrogen 28 mg/dl Creatinine 1.01 mg/dl Est Creatinine Clear Calc Drug Dose 43.9 ml/min Estimated GFR () 61.3 Estimated GFR (Non- 52.9 BUN/Creatinine Ratio 28.0 Random Glucose 207 mg/dl Calcium Level 8.2 mg/dl Assessment & Plan BILATERAL HUMERAL FRACTURES Fell at home on outstretched arms. X-ray right shoulder demonstrated comminuted fractures of the humeral head and neck with dislocation. X-ray of left shoulder demonstrated impacted humeral neck fracture. Ortho consulted. Reverse right shoulder arthroplasty performed by Dr. Oh 07/16/17. Nonsurgical management of left humeral fracture recommended. Titrate analgesics. OSTEOPOROSIS Vitamin D level = 38. Continue replacement. ACUTE BLOOD LOSS ANEMIA Hgb 12.1 --> --> 6.1. Acute blood loss anemia secondary to hematoma from fall. Received 2 units of pRBC's. Hgb today = 9.3. Transfuse to maintain Hgb > 8. Follow H/H. THROMBOCYTOPENIA Plt count as low as 68,000. Plt count day of discharge 156,000. CLL Status discussed with Heme / Onc. Ibrutinib held because of bleeding risk. WBC today = 8330. To see Heme / Onc in clinic; they will determine when to resume ibrutinib. CHRONIC STEROID THERAPY On prednisone 10 mg daily for CLL. Received IV hydrocortisone periop. E COLI UTI (present on admission) Diagnosed prior to admission. Has received adequate course of therapy. Discontinued ciprofloxacin. COUGH Intermittent cough, sometimes productive of green sputum. Chest films did not show any infiltrates. Just finished course of ciprofloxacin for E coli UTI. Seems like pt is having some postnasal drainage. No apparent need for additional antibiotics at this time, but re-evaluate as necessary for fever or other change of clinical status. DEHYDRATION BUN, creatinine 28, 1.01, respectively, on day of discharge. Chronic prednisone therapy probably contributing some to elevated BUN. Nevertheless, patient advise to push PO fluids. VTE PROPHYLAXIS No anticoagulants due to thrombocytopenia and RLE hematoma. SCD's. Ambulate as able. DISPOSITION Arrangements being made for transfer to [facility] for inpatient rehab. Internal Medicine follow-up with Dr. Tita Garcia after discharge from [facility]. Hematology / Oncology follow-up with Dr. Mtz on 07/31/17 at 10:45 AM. . Consultants: Orthopedics- Dr. Oh . Procedures: CT head Reverse right shoulder arthroplasty performed by Dr. Oh 07/16/17. . Current Inpatient Medications: Current Inpatient Medications Medications (Trade) Dose Ordered Sig/Jazmine Route Start Time Stop Time Status Last Admin Dose Admin Lorazepam (Ativan Tab) 0.5 mg Q4 PRN PO 07/15/17 23:15 08/14/17 23:14 07/23/17 12:38 0.5 MG Multivitamins (Multivitamin Tab) 1 tab DAILY PO 07/16/17 09:00 08/15/17 08:59 07/23/17 09:07 1 TAB Prednisone (PredniSONE TAB) 10 mg DAILY PO 07/16/17 09:00 08/15/17 08:59 07/23/17 09:07 10 MG Tramadol HCl (Ultram Tab) 50 mg Q4H PRN PO 07/15/17 23:15 08/14/17 23:14 07/23/17 13:06 50 MG Calcium/Vitamin D (Caltrate Plus Tab) 3 tab QAM PO 07/16/17 09:00 08/15/17 08:59 07/23/17 09:08 3 TAB Citalopram Hydrobromide (celeXA TAB) 10 mg DAILY PO 07/16/17 09:00 08/15/17 08:59 07/23/17 09:08 10 MG Senna (Senokot Tab) 8.6 mg QAM PO 07/16/17 09:00 08/15/17 08:59 07/23/17 09:07 8.6 MG Docusate Sodium (coLACE CAP) 100 mg BID PO 07/16/17 09:00 08/15/17 08:59 07/23/17 09:07 100 MG Hydromorphone HCl (Dilaudid Inj) 0.25 mg Q30M PRN IV 07/17/17 17:00 07/31/17 16:59 07/22/17 13:16 0.25 MG Albuterol/ Ipratropium (Duoneb) 3 ml Q6H PRN INH 07/18/17 20:00 08/15/17 07:59 Acetaminophen (Tylenol Tab) 650 mg Q6H PRN PO 07/18/17 14:45 08/17/17 14:44
[2017-07-23] MEDS ORDERED: DOCU-94 PO ×2 (16:15→16:20)
[2017-07-23] MEDS ORDERED: OXYC1TAB3 PO ×2 (16:15→16:20)
--- NOTE | 2017-07-23 16:25 | Discharge Instructions ---
Discharge Instructions Date of Service Jul 23, 2017. Admission Reason for Admission: bilateral proximal humeral fractures . Discharge Discharge Diagnosis / Problem: bilateral proximal humeral fractures Discharge Goals Goal(s): Decrease discomfort, Improve function Activity Recommendations Activity Level: Assistance Required Therapies: Physical Therapy, Occupational Therapy . Additional Information Patient informed of condition: Yes Advance Directives: Yes DNR: No Level of Care: Acute Rehab Communicable Disease: No Prognosis: Improving Ly Catheter: No Instructions / Follow-Up Instructions / Follow-Up APPOINTMENTS ORTHOPEDICS Dr. Oh Please call office for appointment 2 weeks after surgery (around 07/30/17) HEMATOLOGY / ONCOLOGY Dr[facility] 07/31/17 at 10:[address] Tita Garcia after discharge from [facility]. Please call office for appointment. Thank you for receiving this patient in transfer. Please call if you have any questions. Steve Woo . Current Hospital Diet Patient's current hospital diet: Regular Diet Discharge Diet Recommended Diet: Regular Diet Procedures Procedures Performed: Right Reverse Fractured Total Shoulder Arthroplasty Pending Studies Studies pending at discharge: no Physician Orders On Transfer Special Precautions: fall precautions no pulling on left or right upper extremity reposition q 2 hrs . Vital Signs: routine . Weigh: routine . Additional Orders: Immobilizers for bilateral upper extremities. Please premedicate with tramadol prior to therapies. Please check CBC weekly. Incentive spirometry. . Medical Emergencies . Who to Call and When: Medical Emergencies: If at any time you feel your situation is an emergency, please call 911 immediately. . Non-Emergent Contact Non-Emergency issues call your: Primary Care Provider, Hospital Doctor, Oncologist . . "Provider Documentation" section prepared by Steve Woo. . Core Measure Problem Core Measures: None [place] Drug Monitoring Program Search Results: patient reviewed within database, no issues identified
[2017-07-23] MEDS: HYDROmorphone INJ 1 MG/ML SYR IV PRN (16:26)
--- NOTE | 2017-07-23 16:35 | Discharge Summary ---
Discharge Summary Date of Service Jul 23, 2017. Discharge Summary Admission Date: Jul 15, 2017 at 23:03 Discharge Date: Jul 23, 2017 Discharge Disposition: Rehab ([facility]) Principal Diagnosis: fractures bilateral proximal humeri OTHER ACUTE DIAGNOSES: acute blood loss anemia thrombocytopenia E coli UTI (present on admission) . Secondary Diagnoses/Problems: Chronic and Resolved Medical Problems: (1) Chronic lymphocytic leukemia Status: Chronic (2) Chronic steroid use Status: Chronic (3) Diverticulosis of colon Status: Chronic (4) Dyslipidemia Status: Chronic (5) GERD (gastroesophageal reflux disease) Status: Chronic (6) History of squamous cell carcinoma Status: Chronic (7) Hypogammaglobulinemia, acquired Status: Chronic (8) Osteoarthritis Status: Chronic (9) Osteoporosis Status: Chronic Surgical Problems: (1) Status post cataract extraction Status: Chronic (2) Status post hysterectomy Status: Chronic . Procedures: CT head Reverse right shoulder arthroplasty performed by Dr. Oh 07/16/17. . Consultations: Orthopedics- Dr. Oh . Medication Reconciliation New Medications: Docusate Sodium (Colace) 100 Mg Cap 100 MG PO BID for 30 Days Oxycodone Immediate Rel Tab (Roxicodone Ir) 5 Mg Tab 5 MG PO Q4H PRN for Severe Pain for 30 Days Continued Medications: Acetaminophen (Tylenol) 325 Mg Tab 650 MG PO Q6H PRN for Pain, TAB Calcium Citrate-Vitamin D (Citracal + D3 Maximum) 1 Tab Tab 3 TABS PO QAM Citalopram Hydrobromide (Citalopram Hydrobromide) 10 Mg Tab 10 MG PO DAILY Cyanocobalamin (Vitamin B-12) 1,000 Mcg Sub 1000 MCG SQ MONTHLY Estrogens, Conjugated (Premarin) 14 Appln/30 Gm Cr #30 INSERT 0.5G INTO THE VAGINA AT BEDTIME TWICE A WEEK AT BEDTIME NEEDED Furosemide (Furosemide) 20 Mg Tab 20 MG PO WK PRN for LEG SWELLING Guaifenesin Ext Rel (Mucinex Ext Rel) 600 Mg Tabcr 600 MG PO Q12 PRN for Ibrutinib (Imbruvica) 140 Mg Cap 420 MG PO DAILY ON HOLD OF 07/23/17. DR. MTZ WILL INSTRUCT WHEN TO RESUME Ipratropium-Albuterol (Duoneb) 3 Ml Nebu 1 TREATMENT INH Q4H, INHA Lorazepam (Lorazepam) 0.5 Mg Tab 0.5 MG PO Q4 PRN for Anxiety Melatonin (Melatonin Cr) 3 Mg Tab 3 MG PO HS Multivitamin (Multivitamin) Tab 1 TAB PO DAILY, TAB Fqakrvhu-Inhmfhqvk-Kc Otic (Cortisporin Otic) 1 Ruby Ruby DROPS OP 3XWK Prednisone Tab (Prednisone) 10 Mg Tab 10 MG PO DAILY, TAB Tramadol (Ultram) 50 Mg Tab 50 MG PO Q4H PRN for Pain, TAB Discontinued Medications: Ciprofloxacin (Ciprofloxacin HCl) 500 Mg Tab 500 MG PO BID Dextromethorphan-Guaifenesin (Mucinex Dm) 1 Tab Tab 1 TAB PO Q12 PRN for CONGESTION for 10 Days, #20 TAB Admission Information HPI (per Admitting provider): This is a 81 year old F with bilateral humerus fracture after mechanical fall. Patient is verbal however history supplemented by chart review and family friend at bedside. Patient may have had slipped on the rug while reaching for her cell phone. Patient denies head trauma. Patient seen with slings on arms due to bilateral humerus fractures. Patient reports that pain medications in the Ed is alleviating her pain when seen by hospitalist. Other past medical history includes CLL on chronic prednisone and recent UTI on ciprofloxacin . Physical Exam (per Admitting): General Appearance: no apparent distress Head: normocephalic, atraumatic Eyes: normal inspection, EOMI, sclerae normal ENT: normal ENT inspection, hearing grossly normal, pharynx normal Neck: supple, no JVD, trachea midline Respiratory/Chest: chest non-tender, lungs clear, normal breath sounds, no respiratory distress, no accessory muscle use Cardiovascular: regular rate, rhythm, no edema, no JVD Abdomen/GI: normal bowel sounds, non tender, soft Extremities/Musculoskelatal: no calf tenderness, no pedal edema, + pertinent finding (arms are in slings ) Neurologic/Psych: alert, oriented x 3 Skin: normal color, warm/dry, no rash Hospital Course BILATERAL HUMERAL FRACTURES Fell at home on outstretched arms. X-ray right shoulder demonstrated comminuted fractures of the humeral head and neck with dislocation. X-ray of left shoulder demonstrated impacted humeral neck fracture. Ortho consulted. Reverse right shoulder arthroplasty performed by Dr. Oh 07/16/17. Nonsurgical management of left humeral fracture recommended. Titrate analgesics. OSTEOPOROSIS Vitamin D level = 38. Continue replacement. ACUTE BLOOD LOSS ANEMIA Hgb 12.1 --> --> 6.1. Acute blood loss anemia secondary to hematoma from fall. Received 2 units of pRBC's. Hgb today = 9.3. Transfuse to maintain Hgb > 8. Follow H/H. THROMBOCYTOPENIA Plt count as low as 68,000. Plt count day of discharge 156,000. CLL Status discussed with Heme / Onc. Ibrutinib held because of bleeding risk. WBC today = 8330. To see Heme / Onc in clinic; they will determine when to resume ibrutinib. CHRONIC STEROID THERAPY On prednisone 10 mg daily for CLL. Received IV hydrocortisone periop. E COLI UTI (present on admission) Diagnosed prior to admission. Has received adequate course of therapy. Discontinued ciprofloxacin. COUGH Intermittent cough, sometimes productive of green sputum. Chest films did not show any infiltrates. Just finished course of ciprofloxacin for E coli UTI. Seems like pt is having some postnasal drainage. No apparent need for additional antibiotics at this time, but re-evaluate as necessary for fever or other change of clinical status. DEHYDRATION BUN, creatinine 28, 1.01, respectively, on day of discharge. Chronic prednisone therapy probably contributing some to elevated BUN. Nevertheless, patient advise to push PO fluids. VTE PROPHYLAXIS No anticoagulants due to thrombocytopenia and RLE hematoma. SCD's. Ambulate as able. DISPOSITION Arrangements being made for transfer to [facility] for inpatient rehab. Internal Medicine follow-up with Dr. Tita Garcia after discharge from [facility]. Hematology / Oncology follow-up with Dr. Mtz on 07/31/17 at 10:45 AM. . Total time spent on discharge = 45 min. This includes examination of the patient, discharge planning, medication reconciliation, and communication with other providers. . Discharge Instructions Date of Service Jul 23, 2017. Admission Reason for Admission: bilateral proximal humeral fractures . Discharge Discharge Diagnosis / Problem: bilateral proximal humeral fractures Discharge Goals Goal(s): Decrease discomfort, Improve function Activity Recommendations Activity Level: Assistance Required Therapies: Physical Therapy, Occupational Therapy . Additional Information Patient informed of condition: Yes Advance Directives: Yes DNR: No Level of Care: Acute Rehab Communicable Disease: No Prognosis: Improving Ly Catheter: No Instructions / Follow-Up Instructions / Follow-Up APPOINTMENTS ORTHOPEDICS Dr. Oh Please call office for appointment 2 weeks after surgery (around 07/30/17) HEMATOLOGY / ONCOLOGY Dr. Mtz [facility] 07/31/17 at 10:[address] Tita Garcia after discharge from [facility]. Please call office for appointment. Thank you for receiving this patient in transfer. Please call if you have any questions. Steve Woo . Current Hospital Diet Patient's current hospital diet: Regular Diet Discharge Diet Recommended Diet: Regular Diet Procedures Procedures Performed: Right Reverse Fractured Total Shoulder Arthroplasty Pending Studies Studies pending at discharge: no Physician Orders On Transfer Special Precautions: fall precautions no pulling on left or right upper extremity reposition q 2 hrs . Vital Signs: routine . Weigh: routine . Additional Orders: Immobilizers for bilateral upper extremities. Please premedicate with tramadol prior to therapies. Please check CBC weekly. Incentive spirometry. . Medical Emergencies . Who to Call and When: Medical Emergencies: If at any time you feel your situation is an emergency, please call 911 immediately. . Non-Emergent Contact Non-Emergency issues call your: Primary Care Provider, Hospital Doctor, Oncologist . . "Provider Documentation" section prepared by Steve Woo. . Core Measure Problem Core Measures: None [place] Drug Monitoring Program Search Results: patient reviewed within database, no issues identified . Additional Copies To Chantale Mzt MD; Tita Garcia M.D.; Sina Oh, DO
== END 2017-07-23 17:05 | DRG 483 ==
LOC: EDBD 18:02 → C.EDC 18:03 → C.MSW 23:03 → ENRESERV 23:17
PROVIDERS: ADMIT Hospitalist; ATTEND Hospitalist
PROC: 0RRJ00Z Replacement of Right Shoulder Joint with Reverse Ball and Socket Synthetic Substitute, Open Approach (ICD-10-PCS; principal; 2017-07-16 09:00)
DX: M80.021A Age-related osteoporosis with current pathological fracture, right humerus, initial encounter for fracture (principal); D62 Acute posthemorrhagic anemia; N39.0 Urinary tract infection, site not specified; C91.90 Lymphoid leukemia, unspecified not having achieved remission; M80.022A Age-related osteoporosis with current pathological fracture, left humerus, initial encounter for fracture; S80.01XA Contusion of right knee, initial encounter; W18.09XA Striking against other object with subsequent fall, initial encounter; B96.20 Unspecified Escherichia coli [E. coli] as the cause of diseases classified elsewhere; G56.31 Lesion of radial nerve, right upper limb; D69.6 Thrombocytopenia, unspecified; E86.0 Dehydration; R05 Cough; Z79.52 Long term (current) use of systemic steroids; Z79.899 Other long term (current) drug therapy; Z88.1 Allergy status to other antibiotic agents; Z82.49 Family history of ischemic heart disease and other diseases of the circulatory system; Z83.3 Family history of diabetes mellitus; Z82.0 Family history of epilepsy and other diseases of the nervous system

== ENCOUNTER 2017-08-06 08:20 | Emergency (ER) | payer OTHER, MEDICARE ==
[~2017-08-06] VITALS: Ht 170.2 cm; Wt 64.0 kg
[~2017-08-06 08:20] MED LIST changes: -ALLO300T2 PO; +ATV5X PO; +CITA10TA4 PO; +CYAN100048 SQ; -CYNI1000 INJ; +DOCU-94 PO; -FURO-85 PO; +GFNSR600 PO; +IPRASOL4 INH; -LORA-741 PO; +LSX20 PO; +MELA3TAB25 PO; -METO25TA3 PO; +NEOM1SUS21 OP; +OXYC1TAB3 PO
[2017-08-06 08:27] VITALS: TEMP 36.9; Ht 170.2 cm; Wt 64.0 kg
[2017-08-06] MEDS ORDERED: ONDANSETRON INJ 2 MG/ML 2 ML VIAL IV STA (08:32)
[2017-08-06] MEDS ORDERED: MoRPHine SULFATE 2 MG/ML CARP IV STA (08:32)
--- NOTE | 2017-08-06 08:32 | EMERGENCY ROOM VISIT NOTE ---
History Report prepared by Marisol: Ania Phelps Under the Supervision of: Dr. Sina Pinon M.D. First contact with patient: 08:21 Stated Complaint: SHOULDER PAIN History of Present Illness The patient is a 81 year old female who presents to the Emergency Room with complaints of constant left shoulder and elbow pain beginning last night. The patient states she hiccuped last night and she heard her shoulder "pop". The patient had an episode of fall on 07/14/17. She states she fractured both her humerus heads. The patient is at [facility] for rehabilitation. She denies any chest pain, fever, shortness of breath, numbness or weakness. She states she has not been taking anything for pain. The patient had surgery on her right shoulder. The patient has a history of CLL for 34 years. Source of History: patient Onset: last night Position: shoulder (left) Timing: constant Associated Symptoms: No fevers, No chest pain, No SOB, No weakness, No numbness Review of Systems See HPI for pertinent positives & negatives. A total of 10 systems reviewed and were otherwise negative. Past Medical & Surgical Medical Problems: (1) Chronic lymphocytic leukemia (2) Chronic steroid use (3) Diverticulosis of colon (4) Dyslipidemia (5) GERD (gastroesophageal reflux disease) (6) History of squamous cell carcinoma (7) Hypogammaglobulinemia, acquired (8) Osteoarthritis (9) Osteoporosis Surgical Problems: (1) Status post cataract extraction (2) Status post hysterectomy Old medical records were reviewed. Nurse's notes were reviewed and I agree with. Family History Brain aneurysm MOTHER Cancer BROTHER Diabetes mellitus GRANDMOTHER Heart disease FATHER Social History Marital Status: Housing Status: lives alone Current/Historical Medications Scheduled Bisacodyl (Bisacodyl), 10 MG RE UD Calcium Citrate-Vitamin D (Citracal + D3 Maximum), 3 TABS PO QAM Citalopram Hydrobromide (Citalopram Hydrobromide), 10 MG PO DAILY Cyanocobalamin (Vitamin B-12), 1,000 MCG SQ MONTHLY Dextromethorphan-Guaifenesin (Mucinex Dm), 5 ML PO Q12 Docusate Sodium (Colace), 100 MG PO BID Ibrutinib (Imbruvica), 420 MG PO DAILY Ipratropium-Albuterol (Duoneb), 1 TREATMENT INH Q4H Magnesium Hydroxide (Milk of Magnesia 400 mg/5Ml), 2.4 GM PO DAILY Melatonin (Melatonin Cr), 3 MG PO HS Multivitamin (Multivitamin), 1 TAB PO DAILY Hjxdahoo-Bsumumjth-Tb Otic (Cortisporin Otic), DROPS OP 3XWK Polyethylene Glycol 3350 (Bulk (Polyethylene Glycol 3350), 17 GM PO DAILY Prednisone Tab (Prednisone), 10 MG PO DAILY Sodium Phosphates (Enema), 133 ML RE DAILY Scheduled PRN Acetaminophen (Tylenol), 650 MG PO Q6H PRN for Pain Furosemide (Furosemide), 20 MG PO WK PRN for LEG SWELLING Guaifenesin Ext Rel (Mucinex Ext Rel), 600 MG PO Q12 PRN for Lorazepam (Lorazepam), 0.5 MG PO Q4 PRN for Anxiety Oxycodone Immediate Rel Tab (Roxicodone Ir), 5 MG PO Q4H PRN for Severe Pain Tramadol (Ultram), 50 MG PO Q4H PRN for Pain Miscellaneous Medications Estrogens, Conjugated (Premarin) Allergies Coded Allergies: Cephalosporins (Verified Allergy, Unknown, UNKNOWN, 08/06/17) Nitrofurantoin (Verified Allergy, Unknown, UNKNOWN, 08/06/17) Oxaprozin (Verified Allergy, Unknown, UNKNOWN, 08/06/17) Oxybutynin (Verified Allergy, Unknown, UNKNOWN, 08/06/17) Physical Exam Vital Signs Date Time Temp Pulse Resp B/P (MAP) Pulse Ox O2 Delivery O2 Flow Rate FiO2 08/06/17 14:24 79 18 98 08/06/17 13:26 76 18 97 Room Air 08/06/17 12:13 82 18 96 Room Air 08/06/17 10:11 85 18 97 Room Air 08/06/17 08:27 36.9 87 20 95 Room Air Physical Exam General: Non-ill appearing older female in no acute distress. HEENT: Normal cephalic atraumatic. Pupils are equal round and reactive to light. Extraocular movements are intact. Oropharynx is pink with moist mucous membranes. No swelling of the mouth lips or tongue. Neck: Supple with a midline trachea. No meningeal signs or stiffness, no JVD or bruits. No Stridor. Chest: Clear to auscultation bilaterally. No wheezes or rhonchi. No increased work of breathing. Heart: regular rate and rhythm. Abdomen: Soft nontender, nondistended without rebound guarding or rigidity. Extremities: Right arm in sling with well healing incision, left arm tenderness to palpation along distal humerus and elbow, no redness, warmth, or significant swelling. Multiple bruises Normal motor sensation in hand, normal pulses. No cyanosis clubbing or edema. No calf tenderness or assymetry Spine/Back. Non tender to palpation. No CVA tenderness Skin: Good turgor without rashes. Neurologic exam: Cranial nerves two through 12 are intact. Motor and sensation are intact and symmetrical throughout. Medical Decision & Procedures ER Provider Diagnostic Interpretation: Radiology results as stated below per my review and radiologist interpretation: L ELBOW MIN 3 VIEWS ROUTINE DISCUSSION: The examination is limited from a technical standpoint. No lateral view was obtained. No acute fractures are visualized. No dislocations are evident. There are multiple coarse left breast calcifications. IMPRESSION: 1. Significantly limited study from a positioning standpoint. No acute fractures are visualized. Electronically signed by: González Navarro M.D. L HUMERUS MIN 2 VIEWS ROUTINE FINDINGS: Note is again made of an impacted proximal left humeral fracture that involves the humeral head and neck. Fracture impaction is similar to exam of December or 2017. Multiple associated fracture fragments are noted. These are similar to prior exam as well. A possible glenoid fracture is noted. This was not evident on prior exam. IMPRESSION: 1. Comminuted, impacted and displaced proximal left humeral fracture, as described above. Alignment is similar to prior exam of July 22, 2017. 2. Possible glenoid fracture. Electronically signed by: Landen Zarco M.D. ULTRASOUND L VENOUS DOPPLER UPR EXT UNILAT FINDINGS: No intraluminal thrombus was visualized. The internal jugular, subclavian, axillary, cephalic, brachial, basilic, radial, and ulnar veins were patent. There is a fluid collection at the posterior elbow region measuring 42 x 17 x 34 mm. This contains several septations. IMPRESSION: 1. No evidence of left upper extremity DVT 2. Septated fluid collection posterior to the elbow measuring 42 x 17 x 34 mm. Electronically signed by: González Navarro M.D. Laboratory Results 08/06/17 08:52 Red Blood Count 3.51, Mean Corpuscular Volume 89.5, Mean Corpuscular Hemoglobin 28.5, Mean Corpuscular Hemoglobin Concent 31.8, Mean Platelet Volume 8.6 08/06/17 08:52 Test 08/06/17 08:52 08/06/17 08:56 White Blood Count 4.74 K/uL (4.8-10.8) Red Blood Count 3.51 M/uL (4.2-5.4) Hemoglobin 10.0 g/dL (12.0-16.0) Hematocrit 31.4 % (37-47) Mean Corpuscular Volume 89.5 fL (80-100) Mean Corpuscular Hemoglobin 28.5 pg (25-34) Mean Corpuscular Hemoglobin Concent 31.8 g/dl (32-36) Platelet Count 99 K/uL (130-400) Mean Platelet Volume 8.6 fL (7.4-10.4) RDW Standard Deviation 55.4 fL (36.4-46.3) RDW Coefficient of Variation 16.9 % (11.5-14.5) Neutrophils % (Manual) 48.6 % Lymphocytes % (Manual) 25.7 % Variant Lymphocytes % (manual) 22.1 % Monocytes % (Manual) 0.9 % Eosinophils % (Manual) 0.9 % Basophils % (Manual) 1.8 % Neutrophils # (Manual) 2.30 K/uL (1.4-6.5) Total Absolute Neutrophils 2.30 K/uL (1.4-6.5) Lymphocytes # (Manual) 1.22 K/uL (1.2-3.4) Absolute Variant Lymphocytes 1.05 K/uL Total Absolute Lymphocytes 2.27 K/uL (1.2-3.4) Monocytes # (Manual) 0.04 K/uL (0.11-0.59) Eosinophils # (Manual) 0.04 K/uL (0-0.5) Basophils # (Manual) 0.09 K/uL (0-0.2) Toxic Granulation 1+ Prothrombin Time 10.1 SECONDS (9.0-12.0) Prothromb Time International Ratio 1.0 (0.9-1.1) Activated Partial Thromboplast Time 20.4 SECONDS (21.0-31.0) Partial Thromboplastin Ratio 0.8 Anion Gap 8.0 mmol/L (3-11) Est Creatinine Clear Calc Drug Dose 68.3 ml/min Estimated GFR () 97.9 Estimated GFR (Non- 84.4 BUN/Creatinine Ratio 32.4 (10-20) Calcium Level 8.2 mg/dl (8.5-10.1) Bedside Troponin I < 0.030 ng/ml (0-0.045) Laboratory studies as stated above per my review. Medications Administered Medications (Trade) Dose Ordered Sig/Jazmine Route Start Time Stop Time Status Last Admin Dose Admin Ondansetron HCl (Zofran Inj) 4 mg NOW STAT IV 08/06/17 08:32 08/06/17 08:36 DC 08/06/17 08:47 4 MG Morphine Sulfate (MoRPHine SULFATE INJ) 2 mg NOW STAT IV 08/06/17 08:32 08/06/17 08:36 DC 08/06/17 08:48 2 MG ECG Indication: other Rate (beats per minute): 83 Rhythm: normal sinus Findings: no acute ischemic change, no ectopy Comparison ECG Date: 11/04/2006 Change: no significant change Change: EKG interpreted by me. ED Course 0822: Past medical records reviewed. The patient was evaluated in room B7, and a complete history and physical examination were performed. 0832: ordered Morphine Sulfate 2 mg IV, Zofran Inj 4 mg IV. 0858: The patient is resting comfortably. 1109: Discussed the patient's case with Dr. Oh-Orthopedics. He will follow up with the patient in his office. 1115: The patient is waiting for ultrasound. 1316: I updated the patient on her test results. 1326: Upon reevaluation, the patient is resting comfortably. I discussed the results and treatment plan with her. She verbalized agreement of the treatment plan. The patient was discharged home. Medical Decision Differential diagnoses: Fracture, dislocation, DVT, cardiac disease, electrolyte or metabolic abnormality. This patient comes in as described above. She suffered bilateral humerus fractures several weeks ago and has been at [facility]. Over the night she started having pain in her left arm and felt like something shifted. She is neurologically and neurovascularly intact. There is no evidence suggest compartment syndrome. She's had no chest pain, shortness breath or pleurisy. She has nothing to suggest cardiac disease. X-rays were obtained and IV access established. She was given morphine IV and Zofran IV. She felt significantly better with the morphine. X-rays do not show any change in her fractures. Questionable glenoid fracture. EKG does not suggest acute coronary syndrome and her symptoms would be extremely atypical. She has no elevation of her troponin. She has no white count or fever to suggest infection. She's had no evidence of cellulitis. I did ultrasound and she has no evidence of DVT. There is what appears to be hematoma. I did discuss the case with her orthopedist, Dr. Oh, and he does not feel she is a good operative candidate acutely and recommends continuing conservative care and follow-up with her in the office. The patient should continue her pain medication [facility] and return if any new problems or concerns. She is happy with plan and discharged to home. Medication Reconcilliation Current Medication List: was personally reviewed by me Blood Pressure Screening Patient refused blood pressure. Consults Time Called: 1100 Consulting Physician: Dr. Oh-Orthopedics Returned Call: [phone] Discussed the patient's case with Dr. Oh-Orthopedics. He will follow up with the patient in his office. Impression Primary Impression: Left shoulder pain Additional Impression: Humerus fracture Scribe Attestation The scribe's documentation has been prepared under my direction and personally reviewed by me in its entirety. I confirm that the note above accurately reflects all work, treatment, procedures, and medical decision making performed by me. Departure Information Dispostion Home / Self-Care Forms HOME CARE DOCUMENTATION FORM, IMPORTANT VISIT INFORMATION Additional Instructions Rest. Drink plenty of fluids. Continue to use your pain regimen at [facility] Follow-up with Dr. Oh Return to the ER if: increasing pain, numbness or weakness, worsening of symptoms, fever or chills, any new problems or concerns. Problem Qualifiers
[2017-08-06 09:05] LABS: HEMATOCRIT 31.4 % (37-47); MEAN CELL VOLUME 89.5 fL (80-100); MEAN CORPUSCULAR HEMOGLOBIN 28.5 pg (25-34); MEAN CORPUSCULAR HGB CONC 31.8 g/dl (32-36); RED CELL DISTRIBUTION WIDTH CV 16.9 % (11.5-14.5); RED CELL DISTRIBUTION WIDTH SD 55.4 fL (36.4-46.3); WHITE BLOOD COUNT 4.74 K/uL (4.8-10.8)
[2017-08-06 09:13] LABS: PTT PATIENT 20.4 SECONDS (21.0-31.0)
[2017-08-06 09:15] LABS: CALCIUM 8.2 mg/dl (8.5-10.1); CREATININE 0.65 mg/dl (0.60-1.20); POTASSIUM 3.9 mmol/L (3.5-5.1)
[2017-08-06 09:27] LABS: MEAN PLATELET VOLUME 8.6 fL (7.4-10.4); PLATELET COUNT 99 K/uL (130-400)
[2017-08-06] MEDS ORDERED: DEXT30TA7 PO (09:36)
[2017-08-06] MEDS ORDERED: MAGNSUS73 PO (09:36)
[2017-08-06] MEDS ORDERED: SODI1ENE4 RE (09:36)
[2017-08-06] MEDS ORDERED: POLY1POW2 PO (09:36)
[2017-08-06] MEDS ORDERED: BISA1TAB15 RE (09:36)
--- NOTE | 2017-08-06 10:13 | DIAGNOSTIC IMAGING REPORT ---
L ELBOW MIN 3 VIEWS ROUTINE CLINICAL HISTORY: eval for left elbow pain COMPARISON: None. DISCUSSION: The examination is limited from a technical standpoint. No lateral view was obtained. No acute fractures are visualized. No dislocations are evident. There are multiple coarse left breast calcifications. IMPRESSION: 1. Significantly limited study from a positioning standpoint. No acute fractures are visualized. Electronically signed by: González Navarro M.D. 08/06/2017 10:12 AM Dictated Date/Time: 08/06/2017 10:11 AM
--- NOTE | 2017-08-06 10:14 | DIAGNOSTIC IMAGING REPORT ---
L HUMERUS MIN 2 VIEWS ROUTINE CLINICAL HISTORY: Fracture. Increasing pain. COMPARISON: Left humerus radiographs July 22, 2017 and left shoulder radiographs July 15, 2017. FINDINGS: Note is again made of an impacted proximal left humeral fracture that involves the humeral head and neck. Fracture impaction is similar to exam of December. Multiple associated fracture fragments are noted. These are similar to prior exam as well. A possible glenoid fracture is noted. This was not evident on prior exam. IMPRESSION: 1. Comminuted, impacted and displaced proximal left humeral fracture, as described above. Alignment is similar to prior exam of July 22, 2017. 2. Possible glenoid fracture. Electronically signed by: Landen Zarco M.D. 08/06/2017 10:13 AM Dictated Date/Time: 08/06/2017 10:09 AM
--- NOTE | 2017-08-06 12:57 | DIAGNOSTIC IMAGING REPORT ---
ULTRASOUND L VENOUS DOPPLER UPR EXT UNILAT CLINICAL HISTORY: Left arm swelling COMPARISON STUDY: No previous studies for comparison. FINDINGS: No intraluminal thrombus was visualized. The internal jugular, subclavian, axillary, cephalic, brachial, basilic, radial, and ulnar veins were patent. There is a fluid collection at the posterior elbow region measuring 42 x 17 x 34 mm. This contains several septations. IMPRESSION: 1. No evidence of left upper extremity DVT 2. Septated fluid collection posterior to the elbow measuring 42 x 17 x 34 mm. Electronically signed by: González Navarro M.D. 08/06/2017 12:55 PM Dictated Date/Time: 08/06/2017 12:54 PM
[2017-08-06 14:24] VITALS: PULSE 79; O2SAT 98
== END 2017-08-06 14:26 | disposition home or self-care (01) ==
LOC: EDBD 08:20 → C.EDB 08:23
DX: S42.292D Other displaced fracture of upper end of left humerus, subsequent encounter for fracture with routine healing (principal); W19.XXXD Unspecified fall, subsequent encounter; C91.10 Chronic lymphocytic leukemia of B-cell type not having achieved remission; M19.90 Unspecified osteoarthritis, unspecified site; M81.0 Age-related osteoporosis without current pathological fracture; Z79.899 Other long term (current) drug therapy; Z79.82 Long term (current) use of aspirin; Z82.49 Family history of ischemic heart disease and other diseases of the circulatory system; Z80.9 Family history of malignant neoplasm, unspecified; Z83.3 Family history of diabetes mellitus

== ENCOUNTER 2021-02-20 13:20 | Observation (INO) ==
--- NOTE | 2021-02-20 14:17 | Emergency Department Note ---
History of Present Illness General Chief complaint: Urinary Symptoms Stated complaint: weakness Time Seen by Provider: 02/20/21 13:44 History of Present Illness This 85 year old female patient presents to the ED today via ambulance and is accompanied by her son for evaluation of "I just can't stay another night in that place." The patient states 1 week ago, she was seen in the emergency department for tibia fracture and transferred to [facility] where she had surgery. At that time, she was discharged to [facility] for rehab and transitional care. The patient reports for 4 days after being at [facility], she did not have her dressings changed. She states at 1 point, she was incontinent (which is chronic), but allowed to lie in the dirty diaper for 1 hour prior to being cleaned up and changed. The patient states because of this, she believes she has a urinary tract infection. She reports a subjective fever earlier in the week as well as urinary frequency. Urinary frequency is also chronic but may be worse at this time. She states she has been very stressed and attributes the fever to the stress associated with being at [facility]. She states when a nurse finally did change her dressing 4 days in, "he was very dirty". The patient states she believes her fever may also be due to a wound infection, but is unclear. Patient was started on Augmentin by the [facility] doctor last evening and states her symptoms are somewhat improving, but would like a straight catheterization done to evaluate for possible urinary tract infection. Patient's son states "she cannot stay there another night, so I brought her here until [facility] has a bed". He states he has already been in contact with the case specialist at [facility] and was told that they do not have beds today. He states the patient has an appointment scheduled for tomorrow with her [facility] orthopedic surgeon that "she has to be at because she has CLL". He states he would like her admitted to the hospital until she can be placed, but will coordinate getting her to [place] for her follow-up appointment tomorrow. At this time, the patient states she is feeling much better since leaving the [facility] facility. She denies any ongoing fever. She denies any weakness, chills, nausea, vomiting, numbness, tingling. She denies any chest pain, dyspnea, abdominal pain. Patient does note that she believes the wound on her leg to be starting to heal. Home Medications Medication Instructions Recorded Confirmed Type calcium citrate 250 mg 3 tab PO QAM 05/18/18 02/20/21 History calcium-vitamin D3 5 mcg (200 unit) tablet citalopram 10 mg tablet 10 mg PO QAM 05/18/18 02/20/21 History furosemide 20 mg tablet 20 mg PO QAM 05/18/18 02/20/21 History lorazepam 0.5 mg tablet 0.5 mg PO UD PRN 05/18/18 02/20/21 History multivitamin 1 tab PO QAM 11/10/18 02/20/21 History potassium chloride 10 mEq 10 meq PO QAM 11/10/18 02/20/21 History tablet,extended release(part/cryst) (Klor-Con M) prednisone 5 mg tablet 5 mg PO QAM 11/10/18 02/20/21 History acetaminophen 325 mg capsule 975 mg PO TID cap 03/31/19 02/20/21 History amoxicillin 875 mg-potassium 1 tab PO BID 02/20/21 02/20/21 History clavulanate 125 mg tablet (Augmentin) betamethasone dipropionate 0.05 % 1 applic TOPICAL UD PRN 02/20/21 02/20/21 History lotion cyanocobalamin (vitamin B-12) 1,000 mcg PO QAM 02/20/21 02/20/21 History 1,000 mcg tablet diclofenac sodium 1 % topical gel 2 g TOPICAL QID PRN 02/20/21 02/20/21 History docusate sodium 100 mg capsule 200 mg PO BID 02/20/21 02/20/21 History folic acid 1 mg tablet 1 mg PO QAM 02/20/21 02/20/21 History oxycodone 5 mg tablet 5 mg PO Q4H PRN 02/20/21 02/20/21 History polyethylene glycol 3350 17 17 g PO QAM PRN 02/20/21 02/20/21 History gram/dose oral powder (Miralax) Allergies Allergy/AdvReac Type Severity Reaction Status Date / Time Cephalosporins Allergy Unknown UNKNOWN Verified 02/01/21 16:57 nitrofurantoin Allergy Unknown UNKNOWN Verified 02/20/21 15:58 oxaprozin Allergy Unknown UNKNOWN Verified 02/20/21 15:58 oxybutynin Allergy Unknown UNKNOWN Verified 02/20/21 15:58 mirabegron Allergy Unknown Unverified 02/20/21 15:58 Past Med/Surg History Medical History Chronic lymphocytic leukemia Closed rib fracture Closed tibia fracture Diverticulosis of colon Dyslipidemia Fracture of spine REZA (generalized anxiety disorder) GERD (gastroesophageal reflux disease) History of squamous cell carcinoma Hypogammaglobulinemia, acquired Osteoarthritis Osteoporosis Stress reaction Surgical History History of orthopedic surgery Status post hysterectomy Family History Other Cancer Diabetes Heart disease Social History Smoking Status: Never smoker Hx Alcohol Use: Yes Alcohol type: beer Hx Substance Use: No Preferred Language: Zambian Communication Ability: Effective [employer] Required: No Beliefs That Will Affect Care: None Current Living Situation: Family Other Information That Helps Us Care for You: No Feels Safe at Home: Yes Safety Concerns: Feels Safe At This Time Assistive Devices: Denture - Upper, Glasses and Walker Review of Systems A total of 10 systems reviewed and were otherwise negative Physical Exam Vital Signs Vital Signs - 24 hr 02/20/21 13:14 02/20/21 15:36 Temperature 36.6 C Temperature Source Oral Pulse Rate 98 H Pulse Rate [Left Finger] 97 H Pulse Rhythm Regular Pulse Rhythm [Left Finger] Regular Pulse Strength Normal Pulse Strength [Left Finger] Normal Respiratory Rate 18 18 Respiratory Effort / Characteristics Non-Labored Spontaneous Non-Labored Respiratory Depth Normal Normal Blood Pressure 138/65 Blood Pressure [Right Arm] 161/91 H Blood Pressure Mean 89 Blood Pressure Mean [Right Arm] 114 Blood Pressure Position Sitting Blood Pressure Position [Right Arm] Sitting Pulse Oximetry 99 99 Oxygen Delivery Method Room Air Room Air Sepsis Recent Fever Within 48 Hours No Sepsis New/Unexplained Change in Mental Status No Sepsis Action Taken by Nursing No Action Required VITALS: Vitals are noted on the nurse's note and reviewed by myself. Vital signs stable. GENERAL: This is a an 85-year-old white female, in no acute distress, nondiaphoretic, well-developed well-nourished. SKIN: The skin was without rashes, erythema, edema, or bruising. There is no tenting of the skin. Capillary refill less than 2 seconds. Surgical site directly observed at the request of the patient's son with some surrounding ecch ymosis but no erythema, purulent discharge, or evidence of infection. HEAD: Normocephalic atraumatic. EYES: Conjunctivae without injection, sclerae without icterus. NECK: Supple without nuchal rigidity. No lymphadenopathy. Cervical spine is nontender. No JVD. HEART: Regular rate and rhythm without murmurs gallops or rubs. LUNGS: Clear to auscultation bilaterally without wheezes, rales or rhonchi. No retractions or accessory muscle use. ABDOMEN: Positive bowel sounds x 4. Soft, nontender, without masses or organomegaly. No guarding or rebound tenderness. MUSCULOSKELETAL: Splint in the right lower extremity in place. No muscle atrophy, erythema, or edema noted. Otherwise, full range of motion without joint tenderness in all extremities. No tenderness to palpation. Strength 5/5 throughout (limited exam due to splints in place). NEURO: Patient was alert and oriented to person place and time. Normal sensation to light and sharp touch. No focal neurological deficits. Course Course The patient was seen and evaluated as above. I discussed the case with my attending physician. IV access obtained, labs drawn. Straight cath performed. Urinalysis reviewed by myself. Labs reviewed by myself. I discussed the case with the plan manager. She did speak with the patient and son at bedside. Please see her note. Surgical site of the right lower extremity directly observed at the request of the patient's son. No evidence of infection. I discussed the findings with the patient at bedside. I [facility] the case [facility] did agree to see and evaluate the patient for admission. Administered Medications Acetaminophen (Acetaminophen 325 Mg Tab) 975 mg PO TID GABI Stop: 03/22/21 20:59 Last Admin: 02/20/21 20:44 Dose: 975 mg Documented by: [id number] Amoxicillin/Clavulanate Potassium (Amoxicillin/Clavulanate 875 Mg Tab) 1 tab PO BID GABI Stop: 03/02/21 20:59 Last Admin: 02/20/21 20:44 Dose: 1 tab Documented by: [id number] Docusate Sodium (Docusate Sodium 100 Mg Cap) 200 mg PO BID GABI Stop: 03/22/21 20:59 Last Admin: 02/20/21 20:44 Dose: 200 mg Documented by: [id number] Lorazepam (Lorazepam 0.5 Mg Tab) 0.5 mg PO BID PRN PRN Reason: Sleep, anxiety Stop: 03/22/21 19:09 Last Admin: 02/20/21 20:45 Dose: 0.5 mg Documented by: [id number] Medical Decision Making Differential Diagnosis Differential diagnosis includes UTI, weakness, infection, electrolyte or metabolic abnormality, rhabdomyolysis, ambulatory dysfunction, among others Medical Records Attestation: I reviewed the patient's medical records. Home Medications Current Medication List: was personally reviewed by me Laboratory Data Attestation: I reviewed the patient's lab results. Mild leukocytosis of 13,000. Anemia with a hemoglobin of 9.5 and hematocrit 30.2. Renal, hepatic function and electrolytes without significant abnormality. Urinalysis consistent with infection. COVID-19 testing negative. Result diagrams: 02/20/21 14:49 02/20/21 14:49 Lab Results 02/20/21 02/20/21 02/20/21 Range/Units 14:33 14:49 14:49 WBC 13.40 H (4.8-10.8) K/uL RBC 3.04 L (4.2-5.4) M/uL Hgb 9.5 L (12.0-16.0) g/dL Hct 30.2 L (37-47) % MCV 99.3 (80-100) fL MCH 31.3 (25-34) pg MCHC 31.5 L (32-36) g/dL RDW Std Deviation 67.1 H (36.4-46.3) fL RDW Coeff of Riley 18.8 H (11.5-14.5) % Plt Count 330 (130-400) K/uL MPV 8.3 (7.4-10.4) fL Neutrophils % (Manual) 49.6 % Lymphocytes % (Manual) 41.7 % Prolymphocyte % 7.8 % Monocytes % (Manual) 0.9 % Neutrophils # (Manual) 6.65 H (1.4-6.5) K/uL Total Absolute Neuts 6.65 H (1.4-6.5) K/uL Lymphocytes # (Manual) 5.59 H (1.2-3.4) K/uL Prolymphocyte # 1.05 H (0-0) K/uL Total Abs Lymphocytes 6.63 H (1.2-3.4) K/uL Monocytes # (Manual) 0.12 (0.11-0.59) K/uL Smudge Cells Present Sodium 136 (136-145) mmol/L Potassium 4.7 (3.5-5.1) mmol/L Chloride 106 (98-107) mmol/L Carbon Dioxide 26 (21-32) mmol/L Anion Gap 4.0 (3-11) BUN 19 H (7-18) mg/dl Creatinine 0.70 (0.6-1.2) mg/dl Est Cr Clr Drug Dosing 50.4 ml/min Est GFR ( Amer) 92.9 ml/min Est GFR (Non-Af Amer) 80.1 ml/min BUN/Creatinine Ratio 27.4 H (10-20) Glucose 112 H (70-99) mg/dl Calcium 8.7 (8.5-10.1) mg/dl Total Bilirubin 0.8 (0.2-1) mg/dl AST 42 H (15-37) U/L ALT 51 (12-78) U/L Alkaline Phosphatase 336 H (45-117) U/L Total Protein 6.0 L (6.4-8.2) gm/dl Albumin 2.6 L (3.4-5.0) gm/dl Globulin 3.4 (2.5-4.0) gm/dl Albumin/Globulin Ratio 0.8 L (0.9-2) Urine Color Yellow Urine Appearance Cloudy A (Clear) Urine pH 6.5 (4.5-7.5) Ur Specific [place] 1.013 (1.000-1.030) Urine Protein Negative (Negative) Urine Glucose (UA) Negative (Negative) Urine Ketones Negative (Negative) Urine Blood 1+ H (Negative) Urine Nitrite Positive A (Negative) Urine Bilirubin Negative (Negative) Urine Urobilinogen Negative (Negative) Ur Leukocyte Esterase 3+ H (Negative) Urine WBC (Auto) >30 H (0-5) /hpf Urine RBC (Auto) 0-4 (0-4) /hpf U Hyaline Cast (Auto) 0 (0-5) /lpf U Epithel Cells (Auto) 0-5 (0-5) /lpf Urine Bacteria (Auto) Negative (Negative) Urine Yeast Not Reportable COVID-19 Eval Order SARS-CoV-2 (PCR) (Negative) 02/20/21 02/20/21 Range/Units 15:46 15:46 WBC (4.8-10.8) K/uL RBC (4.2-5.4) M/uL Hgb (12.0-16.0) g/dL Hct (37-47) % MCV (80-100) fL MCH (25-34) pg MCHC (32-36) g/dL RDW Std Deviation (36.4-46.3) fL RDW Coeff of Riley (11.5-14.5) % Plt Count (130-400) K/uL MPV (7.4-10.4) fL Neutrophils % (Manual) % Lymphocytes % (Manual) % Prolymphocyte % % Monocytes % (Manual) % Neutrophils # (Manual) (1.4-6.5) K/uL Total Absolute Neuts (1.4-6.5) K/uL Lymphocytes # (Manual) (1.2-3.4) K/uL Prolymphocyte # (0-0) K/uL Total Abs Lymphocytes (1.2-3.4) K/uL Monocytes # (Manual) (0.11-0.59) K/uL Smudge Cells Sodium (136-145) mmol/L Potassium (3.5-5.1) mmol/L Chloride (98-107) mmol/L Carbon Dioxide (21-32) mmol/L Anion Gap (3-11) BUN (7-18) mg/dl Creatinine (0.6-1.2) mg/dl Est Cr Clr Drug Dosing ml/min Est GFR ( Amer) ml/min Est GFR (Non-Af Amer) ml/min BUN/Creatinine Ratio (10-20) Glucose (70-99) mg/dl Calcium (8.5-10.1) mg/dl Total Bilirubin (0.2-1) mg/dl AST (15-37) U/L ALT (12-78) U/L Alkaline Phosphatase (45-117) U/L Total Protein (6.4-8.2) gm/dl Albumin (3.4-5.0) gm/dl Globulin (2.5-4.0) gm/dl Albumin/Globulin Ratio (0.9-2) Urine Color Urine Appearance (Clear) Urine pH (4.5-7.5) Ur Specific [place] (1.000-1.030) Urine Protein (Negative) Urine Glucose (UA) (Negative) Urine Ketones (Negative) Urine Blood (Negative) Urine Nitrite (Negative) Urine Bilirubin (Negative) Urine Urobilinogen (Negative) Ur Leukocyte Esterase (Negative) Urine WBC (Auto) (0-5) /hpf Urine RBC (Auto) (0-4) /hpf U Hyaline Cast (Auto) (0-5) /lpf U Epithel Cells (Auto) (0-5) /lpf Urine Bacteria (Auto) (Negative) Urine Yeast COVID-19 Eval Order Covid19 at [facility] SARS-CoV-2 (PCR) NEGATIVE (Negative) Blood Pressure Blood Pressure Findings: Elevated blood pressure Blood Pressure Disposition: further management by hospitalist MDM Narrative This 85-year-old female patient with significant past medical history of CLL presents to the emergency department today for evaluation of urinary frequency and concern for urinary tract infection. She is currently on Augmentin per the senior care staff. Patient is primarily here for placement due to discontent with [facility] in the care she is receiving there. Unfortunately, the patient's request for [facility] is unavailable with no beds at this time. The patient refuses to return to [facility] until she is able to be moved to [facility]. She will be admitted to the hospitalist service for m anagement of her urinary tract infection and ultimately placement at a different long-term care facility. Please see hospitalist dictation regarding ongoing management care of this patient. The chart was completed utilizing [employer] Speech voice recognition software. Grammatical errors, random word insertions, pronoun errors, and incomplete sentences are an occasional consequence of this system due to software limitations, ambient noise, and hardware issues. Any formal questions or concerns about the content, text, or information contained within the body of this dictation should be directly addressed to the provider for clarification. Impression & Plan UTI (urinary tract infection), Closed tibia fracture Discharge Plan Visit Data Chief Complaint: Urinary Symptoms Stated Complaint: weakness ED Provider: Steve Mario ED Midlevel Provider: April Marks Discharge Problem: UTI (urinary tract infection), Closed tibia fracture Patient Disposition: Admitted As Inpatient Discharge Instructions Interventions: ED Discharge Assessment Last Done: 02/20/21 18:25
[2021-02-20 14:43] LABS: Appearance Urine Cloudy (Clear); Bacteria Urine Automated Negative (Negative); Bilirubin Urine Negative (Negative); Blood Urine 1+ (Negative); Cast Urine Automated 0 /lpf (0-5); Color Urine Yellow; Epithelial Cell Urine Auto 0-5 /lpf (0-5); Glucose Urine UA Negative (Negative); Ketones Urine Negative (Negative); Leukocyte Esterase Urine 3+ (Negative); Nitrite Urine Positive (Negative); Protein Urine Negative (Negative); RBC Urine Automated 0-4 /hpf (0-4); Specific Gravity Urine 1.013 (1.000-1.030); Urobilinogen Urine Negative (Negative); WBC Urine Automated >30 /hpf (0-5); pH Urine 6.5 (4.5-7.5)
[2021-02-20 14:59] LABS: Hematocrit (blood only) 30.2 % (37-47); Hemoglobin 9.5 g/dL (12.0-16.0); Mean Corpuscular Hemoglobin 31.3 pg (25-34); Mean Corpuscular Hgb Conc 31.5 g/dL (32-36); Mean Corpuscular Volume 99.3 fL (80-100); Mean Platelet Volume 8.3 fL (7.4-10.4); Platelet Count 330 K/uL (130-400); RDW Coefficient of Variation 18.8 % (11.5-14.5); RDW Standard Deviation 67.1 fL (36.4-46.3); Red Blood Count 3.04 M/uL (4.2-5.4)
[2021-02-20 15:15] LABS: Albumin Level 2.6 gm/dl (3.4-5.0); BUN Creatinine Ratio 27.4 (10-20); Calcium 8.7 mg/dl (8.5-10.1); Creatinine Clr Calc Pharmacy 50.4 ml/min; Est GFR (African American) 92.9 ml/min; Est GFR (Non-African American) 80.1 ml/min; Potassium 4.7 mmol/L (3.5-5.1)
[2021-02-20 15:18] LABS: Albumin Globulin Ratio 0.8 (0.9-2); Bilirubin,Total 0.8 mg/dl (0.2-1); Globulin 3.4 gm/dl (2.5-4.0)
[2021-02-20 16:13] LABS: ALC (manual) 6.63 K/uL (1.2-3.4); ANC (manual) 6.65 K/uL (1.4-6.5); Lymphocytes # (manual) 5.59 K/uL (1.2-3.4); Lymphocytes % (manual) 41.7 %; Monocytes # (manual) 0.12 K/uL (0.11-0.59); Monocytes % (manual) 0.9 %; Neutrophils # (manual) 6.65 K/uL (1.4-6.5); Neutrophils % (manual) 49.6 %; Prolymphocyte # (manual) 1.05 K/uL (0-0); Prolymphocyte % (manual) 7.8 %; Smudge Cells Present
--- NOTE | 2021-02-20 16:50 | History & Physical Report ---
Date of Service February 20, 2021 Assessment & Plan (1) UTI (urinary tract infection): Plan: This is an 85yo F with a PMH of hypertension, generalized anxiety disorder, CLL, recent traumatic fall requiring transfer to [facility] for tibia fracture repair presenting from [facility] with urinary symptoms. Abnormal UA, urine cx pending Started on Augmentin yesterday. Will continue with plans for d/c to [facility] once bed is available (2) Closed tibia fracture: (3) Closed rib fracture: Plan: Recent traumatic fall at the beginning of the month, transferred to [facility] for surgical repair, discharged to [facility] Dressing in place, to be changed daily Continue pain medication, bowel regimen Family interested in transitioning rehab care to [facility] working on bed Due for follow up ortho appt with Dr. Zaragoza in [place] tomorrow - discussed with son that appt will need to be rescheduled Fall precautions (4) Chronic lymphocytic leukemia: Plan: Follows with Dr. Vasquez. Currently on ibrutinib and IVIG with heme onc (5) REZA (generalized anxiety disorder): Plan: Continue SSRI, ativan PRN DVT Ppx: SQ heparin Code status: DNR PCP: Sean Dispo: Observation med/tele Patient seen in collaboration with Dr. Peacock. Please see addendum. History of Present Illness Chief Complaint: urinary symptoms [facility] This is an 85yo F with a PMH of hypertension, generalized anxiety disorder, CLL, recent traumatic fall requiring transfer to [facility] for tibia fracture repair presenting from [facility] with urinary symptoms. Patient states she has had more frequent urination and issues with fecal incontinence where her brief was left on with stool present. Feels this may have led to urinary tract infection. Family interested in pursuing [facility] for continued rehabilitation. Patient denies any fever, chills, headache, lightheadedness, chest pain, shortness of breath, nausea, vomiting, abdominal pain, dysuria, diarrhea constipation. Does have follow-up orthopedic appointment in [place] tomorrow but son to reschedule this appointment. Allergies Allergy/AdvReac Type Severity Reaction Status Date / Time Cephalosporins Allergy Unknown UNKNOWN Verified 02/01/21 16:57 nitrofurantoin Allergy Unknown UNKNOWN Verified 02/20/21 15:58 oxaprozin Allergy Unknown UNKNOWN Verified 02/20/21 15:58 oxybutynin Allergy Unknown UNKNOWN Verified 02/20/21 15:58 mirabegron Allergy Unknown Unverified 02/20/21 15:58 Home Medications Medication Instructions Recorded Confirmed Type calcium citrate 250 mg 3 tab PO QAM 05/18/18 02/20/21 History calcium-vitamin D3 5 mcg (200 unit) tablet citalopram 10 mg tablet 10 mg PO QAM 05/18/18 02/20/21 History furosemide 20 mg tablet 20 mg PO QAM 05/18/18 02/20/21 History lorazepam 0.5 mg tablet 0.5 mg PO UD PRN 05/18/18 02/20/21 History multivitamin 1 tab PO QAM 11/10/18 02/20/21 History potassium chloride 10 mEq 10 meq PO QAM 11/10/18 02/20/21 History tablet,extended release(part/cryst) (Klor-Con M) prednisone 5 mg tablet 5 mg PO QAM 11/10/18 02/20/21 History acetaminophen 325 mg capsule 975 mg PO TID cap 03/31/19 02/20/21 History amoxicillin 875 mg-potassium 1 tab PO BID 02/20/21 02/20/21 History clavulanate 125 mg tablet (Augmentin) betamethasone dipropionate 0.05 % 1 applic TOPICAL UD PRN 02/20/21 02/20/21 History lotion cyanocobalamin (vitamin B-12) 1,000 mcg PO QAM 02/20/21 02/20/21 History 1,000 mcg tablet diclofenac sodium 1 % topical gel 2 g TOPICAL QID PRN 02/20/21 02/20/21 History docusate sodium 100 mg capsule 200 mg PO BID 02/20/21 02/20/21 History folic acid 1 mg tablet 1 mg PO QAM 02/20/21 02/20/21 History oxycodone 5 mg tablet 5 mg PO Q4H PRN 02/20/21 02/20/21 History polyethylene glycol 3350 17 17 g PO QAM PRN 02/20/21 02/20/21 History gram/dose oral powder (Miralax) Past Med/Surg History Medical History (Updated 02/20/21 @ 18:59 by Lashonda Gómez PA-C) Chronic lymphocytic leukemia Closed rib fracture Closed tibia fracture Diverticulosis of colon Dyslipidemia Fracture of spine REZA (generalized anxiety disorder) GERD (gastroesophageal reflux disease) History of squamous cell carcinoma Hypogammaglobulinemia, acquired Osteoarthritis Osteoporosis Stress reaction Surgical History History of orthopedic surgery Status post hysterectomy Family History Other Cancer Diabetes Heart disease Social History Smoking Status: Never smoker Preferred Language: Monegasque Feels Safe at Home: Yes Review of Systems Review of Systems: At least ten systems reviewed and negative except as noted in the HPI. Physical Exam Physical Exam: Please see Dr. Peacock's addendum for physical exam. Results & Data Results & Data ([facility]) Vital Signs (Past 12 Hours) Vital Signs Temp Pulse Pulse Resp BP BP Pulse Ox 02/20/21 15:36 97 H 18 161/91 H 99 02/20/21 13:14 36.6 C 98 H 18 138/65 99 Laboratory Results Short CBC 02/20/21 Range/Units 14:49 WBC 13.40 H (4.8-10.8) K/uL Hgb 9.5 L (12.0-16.0) g/dL Hct 30.2 L (37-47) % Plt Count 330 (130-400) K/uL BMP 02/20/21 14:49 Sodium 136 Potassium 4.7 Chloride 106 Carbon Dioxide 26 BUN 19 H Creatinine 0.70 Glucose 112 H Calcium 8.7 Liver Function 02/20/21 Range/Units 14:49 Total Bilirubin 0.8 (0.2-1) mg/dl AST 42 H (15-37) U/L ALT 51 (12-78) U/L Alkaline Phosphatase 336 H (45-117) U/L Albumin 2.6 L (3.4-5.0) gm/dl Urine 02/20/21 Range/Units 14:33 Urine Color Yellow Urine Appearance Cloudy A (Clear) Urine pH 6.5 (4.5-7.5) Ur Specific [place] 1.013 (1.000-1.030) Urine Protein Negative (Negative) Urine Glucose (UA) Negative (Negative) Supervising Physician Co-Signing Physician Notes I saw this patient with the physician assistant mechanic, I participated in the history, physical, review of systems, and physical exam. I reviewed the medications with the patient and the physician assistant mechanic and helped reconcile the medications. I helped take a detailed family and social history as well. I formulated the assessment and plan personally with the physician assistant mechanic and went over it with the patient. ROS-No Headache, No Visual Changes, No Nausea, No Vomiting, No Fever, No Chills, No Neck Pain or Stiffness, No Chest Pain, No Palpitations, No SOB, No COLUNGA, No Co ugh, No Sputum, No Wheezing, No Abdominal Pain, No Diarrhea, No Hematemesis, No Hemoptysis, No Unexpected Weight Loss, No Flank pain, No Melena, No Hematochezia, No Frequency, No Urgency, No Burning, No Hematuria, No Rashes, No Diaphoresis. Appetite is Normal, +RLE Pain Physical Exam Gen-AAO x 3, NAD, Afebrile, Very NOORVIK Head-NCAT, EOMI, PERRLA, Anicteric Sclera, No Posterior Pharyngeal Erythema Neck-Supple, No JVD, No Thyromegaly, No Masses, No LAD, No Bruits Lungs-Clear to Auscultation Bilaterally, No Rales, No Rhonchi, No Wheezing, No Crepitus Chest-No S4, +S1, +S2, No S3, No Murmurs, No Rubs, No Gallops, No Ectopy Abdomen-Soft, Bowel Sounds Present, Non Tender, Non Distended, No Hepatomegaly, No Splenomegaly, No Palpable Masses, No Rebound, No Rigidity, No Guarding Musculoskeletal-Full Range of Motion Bilaterally, No CVAT Extremities-Hyperpigmented LLE, MAILE wrapped LLE c Soft Cast Nuero-Cranial Nerves II-XII grossly intact, Motor WNL, DTRs WNL, Strength WNL, Non Focal Psych-Normal Mood (1) Closed rib fracture Encounter type: initial encounter Laterality: unspecified laterality Rib fracture type: single rib Qualified Code(s): S22.39XA - Fracture of one rib, unspecified side, initial encounter for closed fracture (2) Closed tibia fracture Encounter type: initial encounter Fracture morphology: unspecified fracture morphology Laterality: right Tibia location: proximal Qualified Code(s): S82.101A - Unspecified fracture of upper end of right tibia, initial encounter for closed fracture
--- NOTE | 2021-02-20 18:26 | Emergency Department Note ---
ED Visit Note The patient was seen and examined with April Marks PA-C. I agree with the history, physical and findings. Please see the note for disposition and details. Patient will be given IV Rocephin for her UTI. Consultation was made with hospitalist service. .
[2021-02-20] MEDS ORDERED: DICLOFENAC SOD 1% GEL 100 GM TUBE EXT PRN (19:10)
[2021-02-20] MEDS ORDERED: POLYETHYLENE (MIRALAX) 17 GM PACK PO PRN (19:10)
[2021-02-20] MEDS ORDERED: ONDANSETRON INJ 2 MG/ML 2 ML VIAL IV PRN (19:10)
[2021-02-20] MEDS ORDERED: oxyCODONE HCL IR 5 MG TAB (IMMEDIATE RELEASE) PO PRN (19:10)
[2021-02-20] MEDS: DOCUSATE SODIUM 100 MG CAP PO SCH (20:44)
[2021-02-20] MEDS: AMOXICILLIN/CLAVULANATE 875 MG TAB PO SCH (20:44)
[2021-02-20] MEDS: ACETAMINOPHEN 325 MG TAB PO SCH (20:44)
[2021-02-20] MEDS: LORazepam 0.5 MG TAB PO PRN (20:45)
[2021-02-21 07:56] LABS: Hematocrit (blood only) 32.8 % (37-47); Hemoglobin 10.1 g/dL (12.0-16.0); Mean Corpuscular Hemoglobin 30.5 pg (25-34); Mean Corpuscular Hgb Conc 30.8 g/dL (32-36); Mean Corpuscular Volume 99.1 fL (80-100); Mean Platelet Volume 8.4 fL (7.4-10.4); Platelet Count 317 K/uL (130-400); RDW Coefficient of Variation 19.2 % (11.5-14.5); RDW Standard Deviation 68.2 fL (36.4-46.3); Red Blood Count 3.31 M/uL (4.2-5.4); White Blood Count 13.46 K/uL (4.8-10.8)
[2021-02-21 08:15] LABS: BUN Creatinine Ratio 32.4 (10-20); Calcium 8.7 mg/dl (8.5-10.1); Creatinine Clr Calc Pharmacy 51.1 ml/min; Est GFR (African American) 93.3 ml/min; Est GFR (Non-African American) 80.5 ml/min; Magnesium 2.1 mg/dl (1.8-2.4); Potassium 4.3 mmol/L (3.5-5.1)
[2021-02-21 08:16] LABS: Phosphorus 2.9 mg/dl (2.5-4.9)
[2021-02-21] MEDS ORDERED: FOLIC ACID 1 MG TAB PO SCH (09:00)
[2021-02-21] MEDS ORDERED: CYANOCOBALAMIN 500 MCG TABLET (VITAMIN B-12) PO SCH (09:00)
[2021-02-21] MEDS ORDERED: CALCIUM 600MG + VIT D 400 IU TAB PO SCH (09:00)
[2021-02-21] MEDS ORDERED: CITALOPRAM 20 MG TAB PO SCH (09:00)
[2021-02-21] MEDS ORDERED: FUROSEMIDE 20 MG TAB PO SCH (09:00)
[2021-02-21] MEDS ORDERED: POTASSIUM CHLORIDE 10 MEQ TABCR PO SCH (09:00)
[2021-02-21] MEDS ORDERED: predniSONE 5 MG TAB PO SCH (09:00)
[2021-02-21] MEDS ORDERED: MULTIVITAMIN TAB PO SCH (09:00)
[2021-02-21] MEDS: ACETAMINOPHEN 325 MG TAB PO SCH ×2 (09:33→15:22)
[2021-02-21] MEDS: AMOXICILLIN/CLAVULANATE 875 MG TAB PO SCH (09:35)
[2021-02-21] MEDS: DOCUSATE SODIUM 100 MG CAP PO SCH (09:37)
--- NOTE | 2021-02-21 10:25 | Hospitalist Progress Note ---
Date of Service February 21, 2021 Assessment & Plan (1) UTI (urinary tract infection): Plan: This is an 85yo F with a PMH of hypertension, generalized anxiety disorder, CLL, recent traumatic fall requiring transfer to [facility] for tibia fracture repair presenting from [facility] with urinary symptoms. Abnormal UA Started on Augmentin as outpatient day prior to her admission to the hospital. Will continue with plans for d/c to [facility] once bed is available Urine culture on admission shows gram-negative bacilli x2 [facility] has a bed available and they are aware about positive urine culture, they are okay to accept the patient and follow-up final cultures. (2) Closed tibia fracture: (3) Closed rib fracture: Plan: Recent traumatic fall at the beginning of the month, transferred to [facility] for surgical repair, discharged to [facility] Dressing in place, to be changed daily Continue pain medication, bowel regimen Family interested in transitioning rehab care to [facility], CM aware Due for follow up ortho appt with Dr. Zaragoza in [place] today - discussed with son that appt will need to be rescheduled Fall precautions (4) Chronic lymphocytic leukemia: Plan: Follows with Dr. Vasquez. Currently on ibrutinib and IVIG with heme onc (5) REZA (generalized anxiety disorder): Plan: Continue SSRI, ativan PRN DVT Ppx: SQ heparin Code status: DNR PCP: Dr. Estrada Dispo: Observation med/tele -plan to discharge to [facility] Admission and Anticipated Discharge Date Admission Date: February 20, 2021 Subjective Patient seen in follow-up of UTI Currently laying in bed in no acute distress Denies any fevers, chills, chest pain, shortness of breath Currently denies any urinary symptoms she was started on Augmentin before admission to hospital She said that she was feeling chills before but that has resolved She is very interested in being discharged to [facility] Review of Systems Review of Systems: All systems reviewed & are unremarkable except as noted in Subjective Physical Exam Physical Exam: Gen- elderly frail F, AAO x 3, NAD, Afebrile, Very [place] Head-NCAT, EOMI, PERRLA, Anicteric Sclera Neck-Supple, No JVD, ecchymosis on left neck status post fall Lungs-Clear to Auscultation Bilaterally, No Rales, No Rhonchi, No Wheezing Chest-No S4, +S1, +S2, No S3, No Murmurs, No Rubs Abdomen-Soft, Bowel Sounds Present, Non Tender, Non Distended Musculoskeletal/ Extremities -right lower extremity and left upper extremity in soft cast/Mo wraps, otherwise moving extremities Extremities-Hyperpigmented LLE Neuro- alert and oriented x3, no facial asymmetry, speech fluent, very hard of hearing, moves extremities Psych-Normal Mood Results & Data Results & Data ([facility]) Vital Signs (Past 12 Hours) Vital Signs Temp Pulse Resp BP Pulse Ox 02/21/21 07:14 36.8 C 108 H 16 145/75 H 95 02/21/21 00:29 104 H 02/21/21 00:01 36.7 C 113 H 15 130/71 93 Laboratory Results 02/21/21 02/21/21 02/20/21 Range/Units 07:15 07:15 15:46 WBC 13.46 H (4.8-10.8) K/uL RBC 3.31 L (4.2-5.4) M/uL Hgb 10.1 L (12.0-16.0) g/dL Hct 32.8 L (37-47) % MCV 99.1 (80-100) fL MCH 30.5 (25-34) pg MCHC 30.8 L (32-36) g/dL RDW Std Deviation 68.2 H (36.4-46.3) fL RDW Coeff of Rliey 19.2 H (11.5-14.5) % Plt Count 317 (130-400) K/uL MPV 8.4 (7.4-10.4) fL Neutrophils % (Manual) % Lymphocytes % (Manual) % Prolymphocyte % % Monocytes % (Manual) % Neutrophils # (Manual) (1.4-6.5) K/uL Total Absolute Neuts (1.4-6.5) K/uL Lymphocytes # (Manual) (1.2-3.4) K/uL Prolymphocyte # (0-0) K/uL Total Abs Lymphocytes (1.2-3.4) K/uL Monocytes # (Manual) (0.11-0.59) K/uL Smudge Cells Sodium 136 (136-145) mmol/L Potassium 4.3 (3.5-5.1) mmol/L Chloride 106 (98-107) mmol/L Carbon Dioxide 25 (21-32) mmol/L Anion Gap 5.0 (3-11) BUN 23 H (7-18) mg/dl Creatinine 0.69 (0.6-1.2) mg/dl Est Cr Clr Drug Dosing 51.1 ml/min Est GFR ( Amer) 93.3 ml/min Est GFR (Non-Af Amer) 80.5 ml/min BUN/Creatinine Ratio 32.4 H (10-20) Glucose 104 H (70-99) mg/dl Calcium 8.7 (8.5-10.1) mg/dl Phosphorus 2.9 (2.5-4.9) mg/dl Magnesium 2.1 (1.8-2.4) mg/dl Total Bilirubin (0.2-1) mg/dl AST (15-37) U/L ALT (12-78) U/L Alkaline Phosphatase (45-117) U/L Total Protein (6.4-8.2) gm/dl Albumin (3.4-5.0) gm/dl Globulin (2.5-4.0) gm/dl Albumin/Globulin Ratio (0.9-2) Urine Color Urine Appearance (Clear) Urine pH (4.5-7.5) Ur Specific Harrison (1.000-1.030) Urine Protein (Negative) Urine Glucose (UA) (Negative) Urine Ketones (Negative) Urine Blood (Negative) Urine Nitrite (Negative) Urine Bilirubin (Negative) Urine Urobilinogen (Negative) Ur Leukocyte Esterase (Negative) Urine WBC (Auto) (0-5) /hpf Urine RBC (Auto) (0-4) /hpf U Hyaline Cast (Auto) (0-5) /lpf U Epithel Cells (Auto) (0-5) /lpf Urine Bacteria (Auto) (Negative) Urine Yeast COVID-19 Eval Order SARS-CoV-2 (PCR) NEGATIVE (Negative) 02/20/21 02/20/21 02/20/21 Range/Units 15:46 14:49 14:49 WBC 13.40 H (4.8-10.8) K/uL RBC 3.04 L (4.2-5.4) M/uL Hgb 9.5 L (12.0-16.0) g/dL Hct 30.2 L (37-47) % MCV 99.3 (80-100) fL MCH 31.3 (25-34) pg MCHC 31.5 L (32-36) g/dL RDW Std Deviation 67.1 H (36.4-46.3) fL RDW Coeff of Riley 18.8 H (11.5-14.5) % Plt Count 330 (130-400) K/uL MPV 8.3 (7.4-10.4) fL Neutrophils % (Manual) 49.6 % Lymphocytes % (Manual) 41.7 % Prolymphocyte % 7.8 % Monocytes % (Manual) 0.9 % Neutrophils # (Manual) 6.65 H (1.4-6.5) K/uL Total Absolute Neuts 6.65 H (1.4-6.5) K/uL Lymphocytes # (Manual) 5.59 H (1.2-3.4) K/uL Prolymphocyte # 1.05 H (0-0) K/uL Total Abs Lymphocytes 6.63 H (1.2-3.4) K/uL Monocytes # (Manual) 0.12 (0.11-0.59) K/uL Smudge Cells Present Sodium 136 (136-145) mmol/L Potassium 4.7 (3.5-5.1) mmol/L Chloride 106 (98-107) mmol/L Carbon Dioxide 26 (21-32) mmol/L Anion Gap 4.0 (3-11) BUN 19 H (7-18) mg/dl Creatinine 0.70 (0.6-1.2) mg/dl Est Cr Clr Drug Dosing 50.4 ml/min Est GFR ( Amer) 92.9 ml/min Est GFR (Non-Af Amer) 80.1 ml/min BUN/Creatinine Ratio 27.4 H (10-20) Glucose 112 H (70-99) mg/dl Calcium 8.7 (8.5-10.1) mg/dl Phosphorus (2.5-4.9) mg/dl Magnesium (1.8-2.4) mg/dl Total Bilirubin 0.8 (0.2-1) mg/dl AST 42 H (15-37) U/L ALT 51 (12-78) U/L Alkaline Phosphatase 336 H (45-117) U/L Total Protein 6.0 L (6.4-8.2) gm/dl Albumin 2.6 L (3.4-5.0) gm/dl Globulin 3.4 (2.5-4.0) gm/dl Albumin/Globulin Ratio 0.8 L (0.9-2) Urine Color Urine Appearance (Clear) Urine pH (4.5-7.5) Ur Specific Harrison (1.000-1.030) Urine Protein (Negative) Urine Glucose (UA) (Negative) Urine Ketones (Negative) Urine Blood (Negative) Urine Nitrite (Negative) Urine Bilirubin (Negative) Urine Urobilinogen (Negative) Ur Leukocyte Esterase (Negative) Urine WBC (Auto) (0-5) /hpf Urine RBC (Auto) (0-4) /hpf U Hyaline Cast (Auto) (0-5) /lpf U Epithel Cells (Auto) (0-5) /lpf Urine Bacteria (Auto) (Negative) Urine Yeast COVID-19 Eval Order Covid19 at [facility] SARS-CoV-2 (PCR) (Negative) 02/20/21 Range/Units 14:33 WBC (4.8-10.8) K/uL RBC (4.2-5.4) M/uL Hgb (12.0-16.0) g/dL Hct (37-47) % MCV (80-100) fL MCH (25-34) pg MCHC (32-36) g/dL RDW Std Deviation (36.4-46.3) fL RDW Coeff of Riley (11.5-14.5) % Plt Count (130-400) K/uL MPV (7.4-10.4) fL Neutrophils % (Manual) % Lymphocytes % (Manual) % Prolymphocyte % % Monocytes % (Manual) % Neutrophils # (Manual) (1.4-6.5) K/uL Total Absolute Neuts (1.4-6.5) K/uL Lymphocytes # (Manual) (1.2-3.4) K/uL Prolymphocyte # (0-0) K/uL Total Abs Lymphocytes (1.2-3.4) K/uL Monocytes # (Manual) (0.11-0.59) K/uL Smudge Cells Sodium (136-145) mmol/L Potassium (3.5-5.1) mmol/L Chloride (98-107) mmol/L Carbon Dioxide (21-32) mmol/L Anion Gap (3-11) BUN (7-18) mg/dl Creatinine (0.6-1.2) mg/dl Est Cr Clr Drug Dosing ml/min Est GFR ( Amer) ml/min Est GFR (Non-Af Amer) ml/min BUN/Creatinine Ratio (10-20) Glucose (70-99) mg/dl Calcium (8.5-10.1) mg/dl Phosphorus (2.5-4.9) mg/dl Magnesium (1.8-2.4) mg/dl Total Bilirubin (0.2-1) mg/dl AST (15-37) U/L ALT (12-78) U/L Alkaline Phosphatase (45-117) U/L Total Protein (6.4-8.2) gm/dl Albumin (3.4-5.0) gm/dl Globulin (2.5-4.0) gm/dl Albumin/Globulin Ratio (0.9-2) Urine Color Yellow Urine Appearance Cloudy A (Clear) Urine pH 6.5 (4.5-7.5) Ur Specific Harrison 1.013 (1.000-1.030) Urine Protein Negative (Negative) Urine Glucose (UA) Negative (Negative) Urine Ketones Negative (Negative) Urine Blood 1+ H (Negative) Urine Nitrite Positive A (Negative) Urine Bilirubin Negative (Negative) Urine Urobilinogen Negative (Negative) Ur Leukocyte Esterase 3+ H (Negative) Urine WBC (Auto) >30 H (0-5) /hpf Urine RBC (Auto) 0-4 (0-4) /hpf U Hyaline Cast (Auto) 0 (0-5) /lpf U Epithel Cells (Auto) 0-5 (0-5) /lpf Urine Bacteria (Auto) Negative (Negative) Urine Yeast Not Reportable COVID-19 Eval Order SARS-CoV-2 (PCR) (Negative) (1) UTI (urinary tract infection) Hematuria presence: with hematuria Urinary tract infection type: acute cystitis Qualified Code(s): N30.01 - Acute cystitis with hematuria (2) Closed rib fracture Encounter type: initial encounter Laterality: unspecified laterality Rib fracture type: single rib Qualified Code(s): S22.39XA - Fracture of one rib, unspecified side, initial encounter for closed fracture (3) Closed tibia fracture Encounter type: sequela
--- NOTE | 2021-02-21 14:39 | Discharge Summary ---
Date of Service February 21, 2021 Admission HPI Per Admitting Provider This is an 85yo F with a PMH of hypertension, generalized anxiety disorder, CLL, recent traumatic fall requiring [place] [facility] [place] presenting from [facility] with urinary symptoms. Patient states she has had more frequent urination and issues with fecal incontinence where her brief was left on with stool present. Feels this may have led to urinary tract infection. Family interested in [facility] for [facility]. Patient denies any fever, chills, headache, lightheadedness, chest pain, shortness of breath, nausea, vomiting, abdominal pain, dysuria, diarrhea constipation. Does have follow-up orthopedic appointment in [place] tomorrow but son to reschedule this appointment. Admission Exam Per Admitting Provider Gen-AAO x 3, NAD, Afebrile, Very [place] Head-NCAT, EOMI, PERRLA, Anicteric Sclera, No Posterior Pharyngeal Erythema Neck-Supple, No JVD, No Thyromegaly, No Masses, No LAD, No Bruits Lungs-Clear to Auscultation Bilaterally, No Rales, No Rhonchi, No Wheezing, No Crepitus Chest-No S4, +S1, +S2, No S3, No Murmurs, No Rubs, No Gallops, No Ectopy Abdomen-Soft, Bowel Sounds Present, Non Tender, Non Distended, No Hepatomegaly, No Splenomegaly, No Palpable Masses, No Rebound, No Rigidity, No Guarding Musculoskeletal-Full Range of Motion Bilaterally, No CVAT Extremities-Hyperpigmented LLE, MO wrapped LLE c Soft Cast Nuero-Cranial Nerves II-XII grossly intact, Motor WNL, DTRs WNL, Strength WNL, Non Focal Psych-Normal Mood Principal Diagnosis UTI Recent history of fall and recent orthopedic surgery Discharge Exam Gen- elderly frail F, AAO x 3, NAD, Afebrile, Very [place] Head-NCAT, EOMI, PERRLA, Anicteric Sclera Neck-Supple, No JVD, ecchymosis on left neck status post fall Lungs-Clear to Auscultation Bilaterally, No Rales, No Rhonchi, No Wheezing Chest-No S4, +S1, +S2, No S3, No Murmurs, No Rubs Abdomen-Soft, Bowel Sounds Present, Non Tender, Non Distended Musculoskeletal/ Extremities -right lower extremity and left upper extremity in soft cast/Mo wraps, otherwise moving extremities Extremities-Hyperpigmented LLE Neuro- alert and oriented x3, no facial asymmetry, speech fluent, very hard of hearing, moves extremities Psych-Normal Mood Discharge Data Allergies Allergy/AdvReac Type Severity Reaction Status Date / Time Cephalosporins Allergy Unknown UNKNOWN Verified 02/01/21 16:57 nitrofurantoin Allergy Unknown UNKNOWN Verified 02/20/21 15:58 oxaprozin Allergy Unknown UNKNOWN Verified 02/20/21 15:58 oxybutynin Allergy Unknown UNKNOWN Verified 02/20/21 15:58 [email or web address] Allergy Unknown Unverified 02/20/21 15:58 Consultations 02/20/21 15:53 ED Decision to Admit Stat Hospital Course (1) UTI (urinary tract infection): This is an 85yo F with a PMH of hypertension, generalized anxiety disorder, CLL, recent traumatic fall requiring transfer [place] [facility] [place] presenting from [facility] with urinary symptoms. Abnormal UA Started on Augmentin as outpatient day prior to her admission to the hospital. Will continue with plans for d/c to [facility] once bed is available Urine culture on admission shows gram-negative bacilli x2 [facility] has a bed available and they are aware about positive urine culture, they are okay to accept the patient and follow-up final cultures. (2) Closed tibia fracture: (3) Closed rib fracture: Recent traumatic fall at the beginning of the month, transferred to [facility] [place] repair, discharged to [facility] Dressing in place, to be changed daily Continue pain medication, bowel regimen Family interested in transitioning rehab care to [facility], CM aware Due for follow up ortho appt with Dr. Zaragoza in [place] today - discussed with son that appt will need to be rescheduled Fall precautions (4) Chronic lymphocytic leukemia: Follows with Dr. Vasquez. Currently on ibrutinib and IVIG with heme onc (5) REZA (generalized anxiety disorder): Continue SSRI, ativan PRN DVT Ppx: SQ heparin Code status: DNR PCP: Dr. Estrada Dispo: Observation med/tele -plan to discharge to [facility] Total Time Total Time Spent Total Time Spent (In Minutes): 35 Discharge Plan Discharge Items Patient Disposition: Transfer Inpatient Rehab Fac Reason For Visit: UTI, PLACEMENT Discharge Diagnosis: UTI Recent history of fall and recent orthopedic surgery Activity: Per Instructions section Non-emergency contact: Primary Care Provider Call non-emergency contact if: you have any medication questions and your symptoms worsen Follow-up/Referrals: Steve Alves [Primary Care Provider] - Diet: Regular Diet Texture: Dental soft (bite-sized) Addtl Attending Provider Instructions: Patient was started on Augmentin prior to admission. This was continued. Urine culture so far shows gram-negative bacilli x2, need to follow-up on final urine culture. Patient is also supposed to follow-up with her orthopedic surgeon in [facility]. The appointment was rescheduled due to her current admission. Pending Studies at Discharge: Yes Studies:: Final urine culture Stand-Alone Forms: My [facility] Skilled Items Patient informed of condition?: Yes DNR: Yes Discharge Level of Care: Acute rehab Communicable Disease: No Discharge Prognosis: Stable Lines: None Urinary Catheter: No Medications and DC Order Prescriptions: Continued acetaminophen 325 mg capsule 975 mg PO TID RF: 0 citalopram 10 mg Tablet 10 mg PO QAM RF: 0 lorazepam 0.5 mg Tablet 0.5 mg PO UD PRN (Reason: Sleep, anxiety) RF: 0 furosemide 20 mg Tablet 20 mg PO QAM RF: 0 calcium citrate-vitamin D3 250 mg calcium- 200 unit Tablet 3 tab PO QAM RF: 0 multivitamin Tablet 1 tab PO QAM RF: 0 prednisone 5 mg tablet 5 mg PO QAM RF: 0 potassium chloride [Klor-Con M10] 10 mEq tablet,ER particles/crystals 10 meq PO QAM RF: 0 cyanocobalamin (vitamin B-12) 1,000 mcg Tablet 1,000 mcg PO QAM RF: 0 docusate sodium 100 mg Capsule 200 mg PO BID RF: 0 folic acid 1 mg Tablet 1 mg PO QAM RF: 0 polyethylene glycol 3350 [Miralax] 17 gram/dose Powder 17 g PO QAM PRN (Reason: Constipation) RF: 0 amoxicillin-pot clavulanate [Augmentin] 875-125 mg Tablet 1 tab PO BID RF: 0 oxycodone 5 mg Tablet 5 mg PO Q4H PRN (Reason: Pain) RF: 0 betamethasone dipropionate 0.05 % lotion 1 applic TOPICAL UD PRN (Reason: Itching) RF: 0 diclofenac sodium 1 % gel 2 g TOPICAL QID PRN (Reason: Pain) RF: 0 Discharge Orders: Discharge Order (Routine); Ordered 02/21/21 Ordered By: José Zamudio Admission Data Admit Date/Time: 02/20/21 16:50 Attending Provider: José Zamudio Admit Provider: Jake Peacock Primary Care Provider: Steve Alves Other Providers: [facility] ; Jake Peacock
[2021-02-21] MEDS: LORazepam 0.5 MG TAB PO PRN (15:24)
== END 2021-02-21 16:20 ==
LOC: 3W 13:20 → ED 13:20 → SUATTDRO 16:50 → 3W 18:25

== ENCOUNTER 2022-01-14 15:12 | Inpatient (IN) ==
--- NOTE | 2022-01-14 15:43 | Emergency Department Note ---
Impression & Plan Chronic lymphocytic leukemia, Cellulitis of right lower extremity without foot, Cellulitis of right upper extremity ED Provider Note Provider: Clemente Vigil MD DATE OF SERVICE: 01/14/2022 CHIEF COMPLAINT: Possible infection HISTORY OF PRESENT ILLNESS: Patient is a 86-year-old female history of CLL as well as prior right tibial fracture requiring surgery in [place] presenting today referred by her outpatient doctor. Patient evidently developed an infection in the leg after the surgery required hardware removal of the long course of antibiotics seen by [facility] infectious disease. Patient states that this was healed and she completed a course of cefepime and daptomycin as well as vancomycin. Patient states that she was well until over the past 10 days or so she developed some pain and red spots on her right hand and some redness of the right pinky with some slight increased pain of the right upper extremity. Talk to her family doctor and have blood work which was referred reportedly reassuring as well as an ultrasound here. Patient states today that she also noticed a bit of discharge from a small wound that opened up in the last day or 2 on her right pastor. Previously had some discharge from here but this is stopped. Trauma reported. Referred here by her primary doctor's office. Has been on doxycycline for several days. REVIEW OF SYSTEMS: A total of 10 review of systems was obtained and negative except as stated above in the HPI. PAST MEDICAL HISTORY: As noted above MEDICATIONS: Reviewed home medications SOCIAL HISTORY: Lives at home PHYSICAL EXAM: GENERAL: alert and oriented in no acute distress on stretcher Head: normocephalic and atraumatic EYES: No injection, discharge or icterus. NECK: Trachea midline. LUNGS: Airway patent. No retractions. Breath sounds clear HEART: Regular rate and rhythm. No chest wall tenderness ABDOMEN: Soft and non-tender, without guarding or rebound. SKIN: Warm, dry EXTREMITIES: Patient with a few small areas of scattered bruising on the left upper extremity. Some chronic stasis changes to the bilateral lower extremities with prior surgical scars in the right lower leg. Mid tibia on the pastor there is a small 2 to 3 mm area of skin break through which a trace amount of purulence can be expressed with palpation. Some mild diffuse tenderness and chronic skin changes to the right upper extremity is noted with erythema of the right fourth finger as well as some scattered erythematous splotches on the r ight hand. No open wounds noted here. NEUROLOGICAL: No focal deficits. No aphasia. No facial droop or slurred speech. Ambulatory. EK bpm sinus tachycardia. No PVC or PAC. No acute ST segment elevation with a QTC of 416 left anterior fascicular block. CONTINUOUS CARDIAC MONITORING: was ordered and showed a heart rate of 70s-90s bpm in normal sinus rhythm Patient's laboratory studies and imaging reviewed. Differential includes Cellulitis, abscess, MRSA infection, DVT, necrotizing fasciitis, dermatitis, drug eruption, allergic reaction, as well as other pathologies. IMPRESSION/MEDICAL DECISION MAKING: History of infection on cefepime and daptomycin previously. Blood cultures as well as surface wound culture from the right leg discharge was obtained. No new trauma do not feel x-rays would be that helpful. Inflammatory marker sent with blood work. Negative ultrasound of the right upper extremity in the outpatient setting recently completed. Do not feel we need repeat ultrasound of the extremity with this. Question given the right upper extremity findings as it may possibly represent infective endocarditis picture. Does not appear to be decompensated at this time but history of multiple comorbidities including CLL on imunotherapy. Given this covered broadly in discussion with pharmacy with cefepime and daptomycin based on prior sensitivities for MRSA and pseudomonas. Recommended with her further care here at the hospital including further cardiac/echo evaluation. Discussed with the hospitalist. DIAGNOSIS: Right lower leg cellulitis, right upper extremity cellulitis, CLL DISPOSITION: Being evaluated by the hospitalist Patient was agreeable with this plan. Past Med/Surg History Medical History Chronic lymphocytic leukemia Closed rib fracture Closed tibia fracture Diverticulosis of colon Dyslipidemia Fracture of spine REZA (generalized anxiety disorder) GERD (gastroesophageal reflux disease) History of squamous cell carcinoma Hypogammaglobulinemia, acquired Osteoarthritis Osteoporosis Stress reaction Surgical History History of orthopedic surgery Status post hysterectomy Family History Other Cancer Diabetes Heart disease Social History Smoking Status: Never smoker Second Hand Exposure: No; Do You Dip or Chew Tobacco: No; Hx Alcohol Use: No Hx Substance Use: No Preferred Language: Luxembourgish Communication Ability: Effective Communication Ability Comment: using IPAD for assistance with hearing Pattern Drafter Required: No Beliefs That Will Affect Care: None Current Living Situation: Alone Current Living Situation Comment: Caregiver Fri 8-10 am Other Information That Helps Us Care for You: No Feels Safe at Home: Yes Safety Concerns: Feels Safe At This Time Assistive Devices: Walker Allergies Allergies Allergy/AdvReac Type Severity Reaction Status Date / Time Cephalosporins Allergy Unknown UNKNOWN Verified 01/14/22 17:36 [email or web address] Allergy Unknown Unknown Verified 01/14/22 17:36 nitrofurantoin Allergy Unknown UNKNOWN Verified 01/14/22 17:36 oxaprozin Allergy Unknown UNKNOWN Verified 01/14/22 17:36 oxybutynin Allergy Unknown UNKNOWN Verified 01/14/22 17:36 Home Meds Home Medications Medication Instructions Recorded Confirmed calcium citrate 250 mg 3 tab PO QAM 05/18/18 01/14/22 calcium-vitamin D3 5 mcg (200 unit) tablet citalopram 10 mg tablet 10 mg PO QAM 05/18/18 01/14/22 furosemide 20 mg tablet 20 mg PO QAM PRN 05/18/18 01/14/22 lorazepam 0.5 mg tablet 0.5 mg PO HS PRN 05/18/18 01/14/22 multivitamin 1 tab PO QAM 11/10/18 01/14/22 potassium chloride 10 mEq 10 meq PO QAM PRN 11/10/18 01/14/22 tablet,extended release(part/cryst) (Klor-Con M) prednisone 5 mg tablet 5 mg PO QAM 11/10/18 01/14/22 acetaminophen 325 mg capsule 325 mg PO Q6H PRN cap 03/31/19 01/14/22 diclofenac sodium 1 % topical gel 2 g TOPICAL QID PRN 02/20/21 01/14/22 naproxen sodium 220 mg tablet 220 mg PO BID 12/04/21 01/14/22 (Aleve) cyanocobalamin (vitamin B-12) 1,000 mcg IM MONTHLY 01/14/22 01/14/22 1,000 mcg/mL injection solution famotidine 20 mg tablet 20 mg PO HS 01/14/22 01/14/22 Results & Data (ED) Vital Signs Vital Signs - 24 hr 01/14/22 15:17 01/14/22 15:53 01/14/22 16:00 Temperature 37.4 C Temperature Source Temporal Artery Scan Pulse Rate 114 H Pulse Rate [Finger] 96 H Respiratory Rate 18 18 Respiratory Effort / Characteristics Non-Labored Spontaneous Non-Labored Respiratory Depth Normal Respiratory Pattern Regular Blood Pressure 136/68 Blood Pressure [Left Arm] 128/76 Blood Pressure Mean 90 Blood Pressure Mean [Left Arm] 93 Blood Pressure Position Sitting Pulse Oximetry 98 97 Oxygen Delivery Method Room Air Room Air Sepsis Recent Fever Within 48 Hours No Sepsis New/Unexplained Change in Mental Status No Sepsis Action Taken by Nursing No Action Required 01/14/22 16:14 01/14/22 17:17 Temperature Temperature Source Pulse Rate 89 Pulse Rate [Finger] 89 Respiratory Rate 18 18 Respiratory Effort / Characteristics Respiratory Depth Respiratory Pattern Blood Pressure Blood Pressure [Left Arm] 125/74 Blood Pressure Mean Blood Pressure Mean [Left Arm] 91 Blood Pressure Position Pulse Oximetry 97 97 Oxygen Delivery Method Room Air Room Air Sepsis Recent Fever Within 48 Hours Sepsis New/Unexplained Change in Mental Status Sepsis Action Taken by Nursing Laboratory Data Result diagrams: 01/14/22 15:45 01/14/22 15:45 Lab Results 01/14/22 01/14/22 01/14/22 Range/Units 15:45 15:45 15:45 WBC 57.25 H* (4.8-10.8) K/ul RBC 3.38 L (3.93-5.22) M/uL Hgb 10.6 L (12.0-16.0) g/dl Hct 32.6 L (34.1-44.9) % MCV 96.4 (80.0-100.0) fL MCH 31.4 (25.0-34.0) pg MCHC 32.5 (32.0-36.0) g/dL RDW Std Deviation 55.8 H (36.4-46.3) fL RDW Coeff of Riley 15.8 H (11.5-14.5) % Plt Count 136 (130-400) K/uL MPV 9.9 (9.4-12.3) fL Immature Gran % (Auto) 0.2 % Neut % (Auto) 10.0 % Lymph % (Auto) 80.6 % [place] % (Auto) 9.0 % Eos % (Auto) 0.0 % Baso % (Auto) 0.2 % Neut # (Auto) 5.64 (1.4-6.5) K/uL Lymph # (Auto) 45.25 H (1.2-3.4) K/uL [place] # (Auto) 5.05 H (0.24-0.82) K/uL Eos # (Auto) 0.00 (0-0.50) K/uL Baso # (Auto) 0.10 (0-0.2) K/uL Immature Gran # (Auto) 0.10 H (0.00-0.02) K/uL ESR (0-30) mm/hr PT 10.7 (9.0-12.0) Seconds INR 1.0 (0.9-1.1) APTT 22.8 (21.0-31.0) Seconds PTT Ratio 0.8 Sodium 135 L (136-145) mmol/L Potassium 4.9 (3.5-5.1) mmol/L Chloride 103 (98-107) mmol/L Carbon Dioxide 24 (21-32) mmol/L Anion Gap 8 (3-11) BUN 42 H (6-23) mg/dl Creatinine 1.06 (0.6-1.2) mg/dl Est Cr Clr Drug Dosing 32.9 ml/min Est GFR ( Amer) 55.8 ml/min Est GFR (Non-Af Amer) 48.2 ml/min BUN/Creatinine Ratio 39.6 H (10-20) Glucose 118 H (70-99(Fasting)) mg/dl Lactate (0.4-2.0) mmol/L Calcium 8.8 (8.5-10.1) mg/dl Magnesium 1.9 (1.7-2.4) mg/dl Total Bilirubin 0.4 (0.2-1.0) mg/dl AST 20 (13-39) U/L ALT 14 (7-52) U/L Alkaline Phosphatase 63 (34-104) U/L Total Creatine Kinase 29 (26-192) U/L Troponin I High Sens 6.6 (0-14) pg/ml C-Reactive Protein < 0.50 (0-0.5) mg/dl Total Protein 6.5 (6.0-8.3) gm/dl Albumin 3.9 (3.4-5.0) gm/dl Globulin 2.6 (2.5-4.0) gm/dl Albumin/Globulin Ratio 1.5 (0.9-2) Procalcitonin (0-0.5) ng/ml SARS-CoV-2, RNA, NAAT (NEGATIVE) 01/14/22 01/14/22 01/14/22 Range/Units 15:45 15:45 15:45 WBC (4.8-10.8) K/ul RBC (3.93-5.22) M/uL Hgb (12.0-16.0) g/dl Hct (34.1-44.9) % MCV (80.0-100.0) fL MCH (25.0-34.0) pg MCHC (32.0-36.0) g/dL RDW Std Deviation (36.4-46.3) fL RDW Coeff of Riley (11.5-14.5) % Plt Count (130-400) K/uL MPV (9.4-12.3) fL Immature Gran % (Auto) % Neut % (Auto) % Lymph % (Auto) % [place] % (Auto) % Eos % (Auto) % Baso % (Auto) % Neut # (Auto) (1.4-6.5) K/uL Lymph # (Auto) (1.2-3.4) K/uL [place] # (Auto) (0.24-0.82) K/uL Eos # (Auto) (0-0.50) K/uL Baso # (Auto) (0-0.2) K/uL Immature Gran # (Auto) (0.00-0.02) K/uL ESR 12 (0-30) mm/hr PT (9.0-12.0) Seconds INR (0.9-1.1) APTT (21.0-31.0) Seconds PTT Ratio Sodium (136-145) mmol/L Potassium (3.5-5.1) mmol/L Chloride (98-107) mmol/L Carbon Dioxide (21-32) mmol/L Anion Gap (3-11) BUN (6-23) mg/dl Creatinine (0.6-1.2) mg/dl Est Cr Clr Drug Dosing ml/min Est GFR ( Amer) ml/min Est GFR (Non-Af Amer) ml/min BUN/Creatinine Ratio (10-20) Glucose (70-99(Fasting)) mg/dl Lactate 1.0 (0.4-2.0) mmol/L Calcium (8.5-10.1) mg/dl Magnesium (1.7-2.4) mg/dl Total Bilirubin (0.2-1.0) mg/dl AST (13-39) U/L ALT (7-52) U/L Alkaline Phosphatase (34-104) U/L Total Creatine Kinase (26-192) U/L Troponin I High Sens (0-14) pg/ml C-Reactive Protein (0-0.5) mg/dl Total Protein (6.0-8.3) gm/dl Albumin (3.4-5.0) gm/dl Globulin (2.5-4.0) gm/dl Albumin/Globulin Ratio (0.9-2) Procalcitonin < 0.05 (0-0.5) ng/ml SARS-CoV-2, RNA, NAAT (NEGATIVE) 01/14/22 Range/Units 16:45 WBC (4.8-10.8) K/ul RBC (3.93-5.22) M/uL Hgb (12.0-16.0) g/dl Hct (34.1-44.9) % MCV (80.0-100.0) fL MCH (25.0-34.0) pg MCHC (32.0-36.0) g/dL RDW Std Deviation (36.4-46.3) fL RDW Coeff of Riley (11.5-14.5) % Plt Count (130-400) K/uL MPV (9.4-12.3) fL Immature Gran % (Auto) % Neut % (Auto) % Lymph % (Auto) % [place] % (Auto) % Eos % (Auto) % Baso % (Auto) % Neut # (Auto) (1.4-6.5) K/uL Lymph # (Auto) (1.2-3.4) K/uL [place] # (Auto) (0.24-0.82) K/uL Eos # (Auto) (0-0.50) K/uL Baso # (Auto) (0-0.2) K/uL Immature Gran # (Auto) (0.00-0.02) K/uL ESR (0-30) mm/hr PT (9.0-12.0) Seconds INR (0.9-1.1) APTT (21.0-31.0) Seconds PTT Ratio Sodium (136-145) mmol/L Potassium (3.5-5.1) mmol/L Chloride (98-107) mmol/L Carbon Dioxide (21-32) mmol/L Anion Gap (3-11) BUN (6-23) mg/dl Creatinine (0.6-1.2) mg/dl Est Cr Clr Drug Dosing ml/min Est GFR ( Amer) ml/min Est GFR (Non-Af Amer) ml/min BUN/Creatinine Ratio (10-20) Glucose (70-99(Fasting)) mg/dl Lactate (0.4-2.0) mmol/L Calcium (8.5-10.1) mg/dl Magnesium (1.7-2.4) mg/dl Total Bilirubin (0.2-1.0) mg/dl AST (13-39) U/L ALT (7-52) U/L Alkaline Phosphatase (34-104) U/L Total Creatine Kinase (26-192) U/L Troponin I High Sens (0-14) pg/ml C-Reactive Protein (0-0.5) mg/dl Total Protein (6.0-8.3) gm/dl Albumin (3.4-5.0) gm/dl Globulin (2.5-4.0) gm/dl Albumin/Globulin Ratio (0.9-2) Procalcitonin (0-0.5) ng/ml SARS-CoV-2, RNA, NAAT NEGATIVE (NEGATIVE) Administered Medications Famotidine (Famotidine 20 Mg Tab) 20 mg PO HS GABI Stop: 02/13/22 20:59 Last Admin: 01/14/22 21:15 Dose: 20 mg Documented by: [id number] Lorazepam (Lorazepam 0.5 Mg Tab) 0.5 mg PO HS PRN PRN Reason: Sleep, anxiety Stop: 02/13/22 20:28 Last Admin: 01/14/22 21:15 Dose: 0.5 mg Documented by: [id number] Discontinued Medications Cefepime HCl (Maxipime) 20 mls @ 5 mls/min IV NOW ONE Stop: 01/14/22 15:48 Last Admin: 01/14/22 16:40 Dose: 5 mls/min Documented by: [id number] Daptomycin 425 mg/ Syringe 8.5 mls @ 4.25 mls/min IV NOW ONE; Protocol Stop: 01/14/22 16:01 Last Admin: 01/14/22 17:44 Dose: 4.25 mls/min Documented by: [id number] Imaging Data Radiologist's Impression: Tibia/Fibula X-Ray 01/14/22 18:14 RIGHT TIBIA AND FIBULA 2 VIEWS CLINICAL HISTORY: Right leg infection. FINDINGS: AP and lateral views of the right tibia and fibula are compared to study dated 02/09/2021. The skeletal structures are osteopenic. There is chronic posttraumatic deformity of the right proximal tibia and fibula. Postsurgical change/screw tracts are noted throughout the tibia. No cortical erosion or bony destructive change is identified. Advanced arthritic change is noted in the knee. The ankle mortise appears intact. There is diffuse soft tissue atrophy and mild soft tissue edema. Advanced atherosclerotic calcification is noted in the regional arteries. IMPRESSION: 1. Osteopenia with chronic posttraumatic and postoperative findings as above. 2. No acute fracture is identified and there is no radiographic evidence of osteomyelitis. 3. Diffuse atrophy and mild soft tissue edema is present throughout the leg. Electronically signed by: Jaime Horvath M.D. 01/14/2022 9:25 PM Discharge Plan Visit Data Chief Complaint: Infection Stated Complaint: INFECTION IN RT ARM AND LEG ED Provider: Clemente Vigil Discharge Problem: Chronic lymphocytic leukemia, Cellulitis of right lower extremity without foot, Cellulitis of right upper extremity Patient Disposition: Admitted As Inpatient Discharge Instructions Interventions: ED Discharge Assessment Last Done: 01/14/22 19:24
[2022-01-14] MEDS ORDERED: CEFEPIME 20 ML IV ONE (15:45)
[2022-01-14] MEDS ORDERED: DAPTOmycin 425 MG in SYRINGE 0 ML IV ONE (16:00)
[2022-01-14 16:19] LABS: Partial Thromboplastin Ratio 0.8; Partial Thromboplastin Time 22.8 Seconds (21.0-31.0); Prothrombin Time 10.7 Seconds (9.0-12.0)
[2022-01-14 16:37] LABS: Hematocrit (blood only) 32.6 % (34.1-44.9); Hemoglobin 10.6 g/dl (12.0-16.0); Mean Corpuscular Hemoglobin 31.4 pg (25.0-34.0); Mean Corpuscular Hgb Conc 32.5 g/dL (32.0-36.0); Mean Corpuscular Volume 96.4 fL (80.0-100.0); Mean Platelet Volume 9.9 fL (9.4-12.3); Platelet Count 136 K/uL (130-400); RDW Coefficient of Variation 15.8 % (11.5-14.5); RDW Standard Deviation 55.8 fL (36.4-46.3); Red Blood Count 3.38 M/uL (3.93-5.22); White Blood Count 57.25 K/ul (4.8-10.8)
[2022-01-14 16:45] LABS: Alanine Aminotransferase 14 U/L (7-52); Albumin Globulin Ratio 1.5 (0.9-2); Albumin Level 3.9 gm/dl (3.4-5.0); Alkaline Phosphatase 63 U/L (34-104); Anion Gap 8 (3-11); Aspartate Aminotransferase 20 U/L (13-39); BUN Creatinine Ratio 39.6 (10-20); Bilirubin,Total 0.4 mg/dl (0.2-1.0); Blood Urea Nitrogen 42 mg/dl (6-23); C Reactive Protein < 0.50 mg/dl (0-0.5); Calcium 8.8 mg/dl (8.5-10.1); Carbon Dioxide 24 mmol/L (21-32); Chloride 103 mmol/L (98-107); Creatine Kinase 29 U/L (26-192); Creatinine Clr Calc Pharmacy 32.9 ml/min; Est GFR (African American) 55.8 ml/min; Est GFR (Non-African American) 48.2 ml/min; Globulin 2.6 gm/dl (2.5-4.0); Glucose 118 mg/dl (70-99(Fasting)); Magnesium 1.9 mg/dl (1.7-2.4); Potassium 4.9 mmol/L (3.5-5.1); Sodium 135 mmol/L (136-145); Total Protein 6.5 gm/dl (6.0-8.3)
[2022-01-14 16:47] LABS: Troponin I High Sensitivity 6.6 pg/ml (0-14)
--- NOTE | 2022-01-14 17:29 | History & Physical Report ---
Date of Service January 14, 2022 Assessment & Plan (1) Cellulitis of right upper extremity: (2) Cellulitis of right lower extremity without foot: (3) REZA (generalized anxiety disorder): Plan: Right forearm cellulitis, right fifth finger cellulitis, Right leg open wound with purulent discharge- does not meet SIRS or sepsis criteria. Doesn't look sick or septic. WBC elevated but has CLL. Normal procal, ESR, CRP lactate. No fever. Vitals stable - Blood and wound clx sent. Will get Xray right leg. Might have chronic OM but inflammatory markers normal. Might need CT/MRI for further evaluation and chronic suppressive antibiotics. - Started on vanc cefepime in ED- will continue pending clx results - Consult ID once more data available - Follow clx results H/o OM RLE s/p HW removal and 6 weeks of IV ABx with dapto cefepime completed on December 20. Seen by Dr Lopez ID on 12/20. CLL- Follows Dr Vasquez. on ibrutinib and monthly IVIG per hemonc, seems she had her last IVIG 2 weeks back. 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 Patient had fracture right tibia and fibula last winter with HW placement but developed infection to right tibia this spring and was taken to OR for I and D with hardware removal, wound clx showed MRSA and pseudomonas and hence she completed her 6 weeks of IV antibiotics (initially vanc/cefepime later dapto/cefepime) without signs of residual infection and was evaluated by ID on 20 December. At that time, it was noted she had a small opening but no drainage, ID discussed with ortho Dr Zaragoza who did not recommend longterm suppressive ant ibiotics as hardware out and there was no concern for residual infection. She was doing fine until January 04 when she developed redness and swelling in right upper extremity/hand with some painful rash. She was seen by PCP 5 days back, had blood test and US UE and was placed on doxycycline but no improvement. This morning, her right pastor open wound had some discharge and her PCP sent her to the ED for further evaluation. She denies any fever, chills, nausea, vomiting, shortness of breath. She has chronic lymphedema of her upper extremity but it is worse and erythematous and has painful spots in right hand. She feels fatigued. Caregiver at bedside. Allergies Allergy/AdvReac Type Severity Reaction Status Date / Time Cephalosporins Allergy Unknown UNKNOWN Verified 01/14/22 17:36 mirabegron Allergy Unknown Unknown Verified 01/14/22 17:36 nitrofurantoin Allergy Unknown UNKNOWN Verified 01/14/22 17:36 oxaprozin Allergy Unknown UNKNOWN Verified 01/14/22 17:36 oxybutynin Allergy Unknown UNKNOWN Verified 01/14/22 17:36 Home Medications Medication Instructions Recorded Confirmed Type calcium citrate 250 mg 3 tab PO QAM 05/18/18 01/14/22 History calcium-vitamin D3 5 mcg (200 unit) tablet citalopram 10 mg tablet 10 mg PO QAM 05/18/18 01/14/22 History furosemide 20 mg tablet 20 mg PO QAM PRN 05/18/18 01/14/22 History lorazepam 0.5 mg tablet 0.5 mg PO HS PRN 05/18/18 01/14/22 History multivitamin 1 tab PO QAM 11/10/18 01/14/22 History potassium chloride 10 mEq 10 meq PO QAM PRN 11/10/18 01/14/22 History tablet,extended release(part/cryst) (Klor-Con M) prednisone 5 mg tablet 5 mg PO QAM 11/10/18 01/14/22 History acetaminophen 325 mg capsule 325 mg PO Q6H PRN cap 03/31/19 01/14/22 History diclofenac sodium 1 % topical gel 2 g TOPICAL QID PRN 02/20/21 01/14/22 History naproxen sodium 220 mg tablet 220 mg PO BID 12/04/21 01/14/22 History (Aleve) cyanocobalamin (vitamin B-12) 1,000 mcg IM MONTHLY 01/14/22 01/14/22 History 1,000 mcg/mL injection solution famotidine 20 mg tablet 20 mg PO HS 01/14/22 01/14/22 History Past Med/Surg History Medical History Chronic lymphocytic leukemia Closed rib fracture Closed tibia fracture Diverticulosis of colon Dyslipidemia Fracture of spine REZA (generalized anxiety disorder) GERD (gastroesophageal reflux disease) History of squamous cell carcinoma Hypogammaglobulinemia, acquired Osteoarthritis Osteoporosis Stress reaction Surgical History History of orthopedic surgery Status post hysterectomy Family History Other Cancer Diabetes Heart disease Social History Smoking Status: Never smoker Hx Alcohol Use: Yes Alcohol type: beer Hx Substance Use: No Preferred Language: Israeli Communication Ability: Effective Medical Office Supervisor Required: No Beliefs That Will Affect Care: None Current Living Situation: Family Feels Safe at Home: Yes Assistive Devices: Denture - Upper, Glasses and Walker Review of Systems Review of Systems: All systems reviewed & are unremarkable except as noted in Subjective Physical Exam Physical Exam: General: Frail elderly female, Hard of hearing and communicating with screen with voice command. Sitting comfortably in bed, not in distress, on room air HEENT: EOMI, JAIME, MMM Chest: Clear breath sounds bilaterally, no wheezes or crackles CVS: Regular rate and rhythm, normal heart sounds, no murmur Abdomen: Soft, non tender, not distended, normal bowel sounds Neuro: Awake, alert, oriented, conversing well, non focal Extremities: Chronic lymphedema. Right forearm erythematous, right palm with some rash, right fifth finger cellulitis with erythema, tenderness and swelling. Right leg with open wound from which some purulent drainage can be expressed Results & Data Results & Data ([facility]) Vital Signs (Past 12 Hours) Vital Signs Temp Pulse Pulse Resp BP BP Pulse Ox 01/14/22 16:14 89 18 97 01/14/22 16:00 96 H 128/76 01/14/22 15:53 18 97 01/14/22 15:17 37.4 C 114 H 18 136/68 98 Laboratory Results Short CBC 01/14/22 01/14/22 01/14/22 Range/Units 15:45 15:45 15:45 WBC 57.25 H* (4.8-10.8) K/ul RBC 3.38 L (3.93-5.22) M/uL Hgb 10.6 L (12.0-16.0) g/dl Hct 32.6 L (34.1-44.9) % MCV 96.4 (80.0-100.0) fL MCH 31.4 (25.0-34.0) pg MCHC 32.5 (32.0-36.0) g/dL RDW Std Deviation 55.8 H (36.4-46.3) fL RDW Coeff of Riley 15.8 H (11.5-14.5) % Plt Count 136 (130-400) K/uL MPV 9.9 (9.4-12.3) fL Immature Gran % (Auto) 0.2 % Neut % (Auto) 10.0 % Lymph % (Auto) 80.6 % Corson % (Auto) 9.0 % Eos % (Auto) 0.0 % Baso % (Auto) 0.2 % Neut # (Auto) 5.64 (1.4-6.5) K/uL Lymph # (Auto) 45.25 H (1.2-3.4) K/uL Corson # (Auto) 5.05 H (0.24-0.82) K/uL Eos # (Auto) 0.00 (0-0.50) K/uL Baso # (Auto) 0.10 (0-0.2) K/uL Immature Gran # (Auto) 0.10 H (0.00-0.02) K/uL ESR (0-30) mm/hr PT 10.7 (9.0-12.0) Seconds INR 1.0 (0.9-1.1) APTT 22.8 (21.0-31.0) Seconds PTT Ratio 0.8 Sodium 135 L (136-145) mmol/L Potassium 4.9 (3.5-5.1) mmol/L Chloride 103 (98-107) mmol/L Carbon Dioxide 24 (21-32) mmol/L Anion Gap 8 (3-11) BUN 42 H (6-23) mg/dl Creatinine 1.06 (0.6-1.2) mg/dl Est Cr Clr Drug Dosing 32.9 ml/min Est GFR ( Amer) 55.8 ml/min Est GFR (Non-Af Amer) 48.2 ml/min BUN/Creatinine Ratio 39.6 H (10-20) Glucose 118 H (70-99(Fasting)) mg/dl Lactate (0.4-2.0) mmol/L Calcium 8.8 (8.5-10.1) mg/dl Magnesium 1.9 (1.7-2.4) mg/dl Total Bilirubin 0.4 (0.2-1.0) mg/dl AST 20 (13-39) U/L ALT 14 (7-52) U/L Alkaline Phosphatase 63 (34-104) U/L Total Creatine Kinase 29 (26-192) U/L Troponin I High Sens 6.6 (0-14) pg/ml C-Reactive Protein < 0.50 (0-0.5) mg/dl Total Protein 6.5 (6.0-8.3) gm/dl Albumin 3.9 (3.4-5.0) gm/dl Globulin 2.6 (2.5-4.0) gm/dl Albumin/Globulin Ratio 1.5 (0.9-2) Procalcitonin (0-0.5) ng/ml SARS-CoV-2, RNA, NAAT (NEGATIVE) 01/14/22 01/14/22 01/14/22 Range/Units 15:45 15:45 15:45 WBC (4.8-10.8) K/ul RBC (3.93-5.22) M/uL Hgb (12.0-16.0) g/dl Hct (34.1-44.9) % MCV (80.0-100.0) fL MCH (25.0-34.0) pg MCHC (32.0-36.0) g/dL RDW Std Deviation (36.4-46.3) fL RDW Coeff of Riley (11.5-14.5) % Plt Count (130-400) K/uL MPV (9.4-12.3) fL Immature Gran % (Auto) % Neut % (Auto) % Lymph % (Auto) % Cors[place] % (Auto) % Eos % (Auto) % Baso % (Auto) % Neut # (Auto) (1.4-6.5) K/uL Lymph # (Auto) (1.2-3.4) K/uL Corson # (Auto) (0.24-0.82) K/uL Eos # (Auto) (0-0.50) K/uL Baso # (Auto) (0-0.2) K/uL Immature Gran # (Auto) (0.00-0.02) K/uL ESR 12 (0-30) mm/hr PT (9.0-12.0) Seconds INR (0.9-1.1) APTT (21.0-31.0) Seconds PTT Ratio Sodium (136-145) mmol/L Potassium (3.5-5.1) mmol/L Chloride (98-107) mmol/L Carbon Dioxide (21-32) mmol/L Anion Gap (3-11) BUN (6-23) mg/dl Creatinine (0.6-1.2) mg/dl Est Cr Clr Drug Dosing ml/min Est GFR ( Amer) ml/min Est GFR (Non-Af Amer) ml/min BUN/Creatinine Ratio (10-20) Glucose (70-99(Fasting)) mg/dl Lactate 1.0 (0.4-2.0) mmol/L Calcium (8.5-10.1) mg/dl Magnesium (1.7-2.4) mg/dl Total Bilirubin (0.2-1.0) mg/dl AST (13-39) U/L ALT (7-52) U/L Alkaline Phosphatase (34-104) U/L Total Creatine Kinase (26-192) U/L Troponin I High Sens (0-14) pg/ml C-Reactive Protein (0-0.5) mg/dl Total Protein (6.0-8.3) gm/dl Albumin (3.4-5.0) gm/dl Globulin (2.5-4.0) gm/dl Albumin/Globulin Ratio (0.9-2) Procalcitonin < 0.05 (0-0.5) ng/ml SARS-CoV-2, RNA, NAAT (NEGATIVE) 01/14/22 Range/Units 16:45 WBC (4.8-10.8) K/ul RBC (3.93-5.22) M/uL Hgb (12.0-16.0) g/dl Hct (34.1-44.9) % MCV (80.0-100.0) fL MCH (25.0-34.0) pg MCHC (32.0-36.0) g/dL RDW Std Deviation (36.4-46.3) fL RDW Coeff of Riley (11.5-14.5) % Plt Count (130-400) K/uL MPV (9.4-12.3) fL Immature Gran % (Auto) % Neut % (Auto) % Lymph % (Auto) % Corson % (Auto) % Eos % (Auto) % Baso % (Auto) % Neut # (Auto) (1.4-6.5) K/uL Lymph # (Auto) (1.2-3.4) K/uL Corson # (Auto) (0.24-0.82) K/uL Eos # (Auto) (0-0.50) K/uL Baso # (Auto) (0-0.2) K/uL Immature Gran # (Auto) (0.00-0.02) K/uL ESR (0-30) mm/hr PT (9.0-12.0) Seconds INR (0.9-1.1) APTT (21.0-31.0) Seconds PTT Ratio Sodium (136-145) mmol/L Potassium (3.5-5.1) mmol/L Chloride (98-107) mmol/L Carbon Dioxide (21-32) mmol/L Anion Gap (3-11) BUN (6-23) mg/dl Creatinine (0.6-1.2) mg/dl Est Cr Clr Drug Dosing ml/min Est GFR ( Amer) ml/min Est GFR (Non-Af Amer) ml/min BUN/Creatinine Ratio (10-20) Glucose (70-99(Fasting)) mg/dl Lactate (0.4-2.0) mmol/L Calcium (8.5-10.1) mg/dl Magnesium (1.7-2.4) mg/dl Total Bilirubin (0.2-1.0) mg/dl AST (13-39) U/L ALT (7-52) U/L Alkaline Phosphatase (34-104) U/L Total Creatine Kinase (26-192) U/L Troponin I High Sens (0-14) pg/ml C-Reactive Protein (0-0.5) mg/dl Total Protein (6.0-8.3) gm/dl Albumin (3.4-5.0) gm/dl Globulin (2.5-4.0) gm/dl Albumin/Globulin Ratio (0.9-2) Procalcitonin (0-0.5) ng/ml SARS-CoV-2, RNA, NAAT NEGATIVE (NEGATIVE) BMP 01/14/22 15:45 Sodium 135 L Potassium 4.9 Chloride 103 Carbon Dioxide 24 BUN 42 H Creatinine 1.06 Glucose 118 H Calcium 8.8 Cardiac Enzymes 01/14/22 Range/Units 15:45 Total Creatine Kinase 29 (26-192) U/L Liver Function 01/14/22 Range/Units 15:45 Total Bilirubin 0.4 (0.2-1.0) mg/dl AST 20 (13-39) U/L ALT 14 (7-52) U/L Alkaline Phosphatase 63 (34-104) U/L Albumin 3.9 (3.4-5.0) gm/dl
[2022-01-14 18:09] LABS: Basophils % (auto) 0.2 %; Immature Granulocytes % (auto) 0.2 %; Lymphocytes # (auto) 45.25 K/uL (1.2-3.4); Lymphocytes % (auto) 80.6 %; Monocytes # (auto) 5.05 K/uL (0.24-0.82); Neutrophils # (auto) 5.64 K/uL (1.4-6.5)
[2022-01-14] MEDS: LORazepam 0.5 MG TAB PO PRN (21:15)
[2022-01-14] MEDS: FAMOTIDINE 20 MG TAB PO SCH (21:15)
--- NOTE | 2022-01-14 21:26 | XRay Report ---
RIGHT TIBIA AND FIBULA 2 VIEWS CLINICAL HISTORY: Right leg infection. FINDINGS: AP and lateral views of the right tibia and fibula are compared to study dated 02/09/2021. Th e skeletal structures are osteopenic. There is chronic posttraumatic deformity of the right proximal tibia and fibula. Postsurgical change/screw tracts are noted throughout the tibia. No cortical erosio n or bony destructive change is identified. Advanced arthritic change is noted in the knee. The ankle mortise appears intact. There is diffuse soft tissue atrophy and mild soft tissue edema. Advanced at herosclerotic calcification is noted in the regional arteries. IMPRESSION: 1. Osteopenia with chronic posttraumatic and postoperative findings as above. 2. No acute fracture is identified and there is no radiographic evidence of osteomyelitis. 3. Diffuse atrophy and mild soft tissue edema is present throughout the leg. Electronically signed by: Jaime Horvath M.D. 01/14/2022 9:25 PM
[2022-01-14 22:10] LABS: Appearance Urine Clear (Clear); Bilirubin Urine Negative (Negative); Blood Urine Negative (Negative); Color Urine Yellow; Glucose Urine UA Negative (Negative); Ketones Urine Negative (Negative); Leukocyte Esterase Urine Negative (Negative); Nitrite Urine Negative (Negative); Protein Urine Negative (Negative); Specific Gravity Urine 1.016 (1.000-1.030); Urobilinogen Urine Negative (Negative); pH Urine 6.5 (4.5-7.5)
[2022-01-15] MEDS: CEFEPIME 2,000 MG in SYRINGE 0 ML IV SCH ×2 (05:20→16:04)
[2022-01-15 06:37] LABS: Anion Gap 4 (3-11); BUN Creatinine Ratio 38.2 (10-20); Blood Urea Nitrogen 34 mg/dl (6-23); C Reactive Protein < 0.50 mg/dl (0-0.5); Calcium 8.4 mg/dl (8.5-10.1); Carbon Dioxide 27 mmol/L (21-32); Chloride 107 mmol/L (98-107); Creatinine Clr Calc Pharmacy 38.8 ml/min; Est GFR (Non-African American) 59.5 ml/min; Glucose 84 mg/dl (70-99(Fasting)); Potassium 4.1 mmol/L (3.5-5.1); Sodium 138 mmol/L (136-145)
[2022-01-15 06:56] LABS: Hematocrit (blood only) 29.5 % (34.1-44.9); Hemoglobin 9.5 g/dl (12.0-16.0); Mean Corpuscular Hemoglobin 30.9 pg (25.0-34.0); Mean Corpuscular Hgb Conc 32.2 g/dL (32.0-36.0); Mean Corpuscular Volume 96.1 fL (80.0-100.0); Platelet Count 96 K/uL (130-400); RDW Coefficient of Variation 15.7 % (11.5-14.5); RDW Standard Deviation 54.5 fL (36.4-46.3); Red Blood Count 3.07 M/uL (3.93-5.22); White Blood Count 37.11 K/ul (4.8-10.8)
[2022-01-15 07:35] LABS: Basophils # (auto) 0.12 K/uL (0-0.2); Basophils % (auto) 0.3 %; Eosinophils # (auto) 0.07 K/uL (0-0.50); Eosinophils % (auto) 0.2 %; Immature Granulocytes # (auto) 0.04 K/uL (0.00-0.02); Immature Granulocytes % (auto) 0.1 %; Lymphocytes # (auto) 31.46 K/uL (1.2-3.4); Lymphocytes % (auto) 84.8 %; Monocytes # (auto) 3.11 K/uL (0.24-0.82); Monocytes % (auto) 8.4 %; Neutrophils # (auto) 2.31 K/uL (1.4-6.5); Neutrophils % (auto) 6.2 %; Smudge Cells Present
[2022-01-15] MEDS: CITALOPRAM 20 MG TAB PO SCH (09:03)
[2022-01-15] MEDS: ENOXAPARIN INJ 40 MG/0.4 ML SYR SQ SCH (09:03)
[2022-01-15] MEDS: predniSONE 5 MG TAB PO SCH (09:03)
[2022-01-15] MEDS: ASPIRIN 81 MG ECTAB PO SCH (11:02)
--- NOTE | 2022-01-15 12:03 | Electrocardiogram Report ---
Test Reason : Blood Pressure : / mmHG Vent. Rate : 103 BPM Atrial Rate : 103 BPM P-R Int : 164 ms QRS Dur : 078 ms QT Int : 318 ms P-R-T Axes : 059 -47 049 degrees QTc Int : 416 ms Sinus tachycardia Left anterior fascicular block Abnormal ECG When compared with ECG of 09-FEB-2021 11:27, Septal infarct is now Present Confirmed by Kalin Tena ([id number]) on 01/15/2022 12:02:45 PM Referred By: Confirmed By:Cuong Tena
[2022-01-15] MEDS: DAPTOmycin 450 MG in SYRINGE 0 ML IV SCH (16:05)
--- NOTE | 2022-01-15 18:01 | Hospitalist Progress Note ---
Date of Service January 15, 2022 Assessment & Plan (1) Cellulitis of right lower extremity without foot: Plan: #. Cellulitis of right upper extremity: #. Likely Postoperative wound infection to the right lower extremity with cellulitis Right forearm cellulitis, right fifth finger cellulitis, Right leg open wound with purulent discharge- does not meet SIRS or sepsis criteria at admission. Doesn't look sick or septic. WBC elevated but has CLL. Normal procal, ESR, CRP lactate. No fever. Vitals stable 01/14 XR Rt leg: osteopenia w/ chronic post traumatic and postoperative findings noted. No evidence of OM. f/u 01/14 Blood and wound clx sent. Will get Xray right leg. Might have chronic OM but inflammatory markers normal. XR negative. ?? CT/MRI for further evaluation and chronic suppressive antibiotics. ID consulted. Await recs. c/w cefepime and dapto pending cx results and ID recs. #. H/o OM RLE s/p HW removal and 6 weeks of IV ABx with dapto cefepime completed on December 20. Seen by Dr Lopez ID on 12/20. CLL- Follows Dr Vasquez. on ibrutinib and monthly IVIG per hemonc, seems she had her last IVIG 2 weeks back. Next appt on 01/29 REZA- on celexa, ativan hs GERD- on pepcid hs DVT ppx- sc lovenox Full code Dispo- Medsurg Admission and Anticipated Discharge Date Admission Date: January 14, 2022 Subjective Patient seen and examined at bedside as a follow-up of right fifth finger cellulitis and right leg open wound with purulent drainage. Patient was lying in bed, on room air, NAD, denies any new acute events overnight. Patient reports eating okay and moving bowels okay. Patient reports pain at infection site. Patient reports improving right upper extremity swelling. Patient denies headache/dizziness/chest pain/palpitation/sore throat/cough/other review of symptoms. Physical Exam Physical Exam: GENERAL: Alert and oriented x3. NAD, on RA. [place] but uses notepad for communication. appears chornically ill and frail. HEENT: No pallor, no icterus. Pupils equal, round and reactive to light. Oral mucosa moist. NECK: No JVD, no neck masses. HEART: S1 and S2 heard. Regular rate and rhythm. No murmur, no gallop. RESPIRATORY SYSTEM: Normal AP diameter. No accessory muscle use. No wheezing, no crackles. ABDOMEN: Soft, bowel sounds present, nontender, no distention. CENTRAL NERVOUS SYSTEM: No facial droop. Speech is clear. Obeys simple comm ands. Moves extremities. EXTREMITIES: No BLE edema but chronic skin changes noted, also open wound w/ pus on Rt pastor noted, no erythema seen. Rt fifth finger w/ erythema/ten derness/swelling noted, RUE swelling noted --> improving swelling. Results & Data Results & Data ([facility]) Vital Signs (Past 12 Hours) Vital Signs Temp Pulse Resp BP Pulse Ox 01/15/22 15:39 36.7 C 100 H 17 104/65 93 01/15/22 07:31 36.7 C 80 16 151/55 H 97
[2022-01-15] MEDS ORDERED: GADOBUTROL 65ML VIAL IV ONE (22:18)
[2022-01-15] MEDS: LORazepam 0.5 MG TAB PO PRN (22:36)
[2022-01-15] MEDS: FAMOTIDINE 20 MG TAB PO SCH (22:36)
[2022-01-16] MEDS: CEFEPIME 2,000 MG in SYRINGE 0 ML IV SCH ×2 (05:41→17:50)
[2022-01-16] MEDS: CITALOPRAM 20 MG TAB PO SCH (08:14)
[2022-01-16] MEDS: predniSONE 5 MG TAB PO SCH (08:14)
[2022-01-16] MEDS: ENOXAPARIN INJ 40 MG/0.4 ML SYR SQ SCH (08:15)
[2022-01-16] MEDS: ASPIRIN 81 MG ECTAB PO SCH (08:15)
[2022-01-16 09:02] LABS: Hematocrit (blood only) 30.8 % (34.1-44.9); Hemoglobin 9.9 g/dl (12.0-16.0); Mean Corpuscular Hemoglobin 31.4 pg (25.0-34.0); Mean Corpuscular Hgb Conc 32.1 g/dL (32.0-36.0); Mean Corpuscular Volume 97.8 fL (80.0-100.0); Mean Platelet Volume 10.2 fL (9.4-12.3); Platelet Count 96 K/uL (130-400); RDW Coefficient of Variation 15.9 % (11.5-14.5); RDW Standard Deviation 56.6 fL (36.4-46.3); Red Blood Count 3.15 M/uL (3.93-5.22); White Blood Count 34.26 K/ul (4.8-10.8)
[2022-01-16 09:15] LABS: BUN Creatinine Ratio 43.5 (10-20); Calcium 8.8 mg/dl (8.5-10.1); Creatinine Clr Calc Pharmacy 37.5 ml/min; Est GFR (African American) 66.3 ml/min; Est GFR (Non-African American) 57.2 ml/min; Magnesium 1.9 mg/dl (1.7-2.4); Phosphorus 3.5 mg/dl (2.5-4.9); Potassium 4.5 mmol/L (3.5-5.1)
--- NOTE | 2022-01-16 10:49 | Magnetic Resonance Report ---
MR lower leg RT wo/w con CLINICAL HISTORY: r/o OM, rt ship wound w/ pus. TECHNIQUE: Multisequence, multiplanar MR images of the right lower leg were obtained without contra st COMPARISON: Comparison is made to MRI right lower leg 02/08/2021 and tibia and fibula radiographs 2021 FINDINGS: Patient is status post hardware removal. Susceptibility artifacts are seen. There is diffuse enhancem ent and edema in the medulla of the bone with some cortical erosion noted in the anterior superior as pect of the tibia (series 23 image 19). There is a linear defect in the superior tibia which likely r epresents old fracture (series 18 image 17). No joint effusion is seen. Mild soft tissue stranding is noted. IMPRESSION: 1. Findings are concerning for osteomyelitis in the tibia with involvement of the medulla and a sinu s in the anterior superior cortex, these are considered less likely to represent purely posttreatment changes. 2. Susceptibility artifacts may represent gas or retained metallic fragments, CT may be performed to assess these findings. 3. Surrounding soft tissue edema is seen which may represent cellulitis. 4. Post surgical changes of hardware removal are seen. ACT 112: Negative or not required by law. Electronically signed by: Sarabjit Wade M.D. 01/16/2022 10:47 AM
--- NOTE | 2022-01-16 17:24 | Hospitalist Progress Note ---
Date of Service January 16, 2022 Assessment & Plan (1) Cellulitis of right lower extremity without foot: Plan #. Cellulitis of right upper extremity: #. Likely Postoperative wound infection to the right lower extremity with cellulitis Right forearm cellulitis, right fifth finger cellulitis, Right leg open wound with purulent discharge- does not meet SIRS or sepsis criteria at admission. Doesn't look sick or septic. WBC elevated but has CLL. Normal procal, ESR, CRP lactate. No fever. Vitals stable 01/14 blood culture: No growth so far 01/14 right leg wound culture: Pseudomonas aeruginosa 01/14 XR Rt leg: osteopenia w/ chronic post traumatic and postoperative findings noted. No evidence of OM. 01/15 MRI Rt leg: Tibial OM with involvement of the medulla, and a sinus in the anterior superior cortex. ?? Susceptibility artifacts, recommends CT. Pt made aware of new findings. ID consulted, await recommendation. We will send CT of RLE as per MRI recommendation. c/w cefepime and dapto pending cx results and ID recs. #. H/o OM RLE s/p HW removal and 6 weeks of IV ABx with dapto cefepime completed on December 20. Seen by Dr Lopez ID on 12/20. CLL- Follows Dr Vasquez. on ibrutinib and monthly IVIG per hemonc, seems she had her last IVIG 2 weeks back. Next appt on 01/29 REZA- on celexa, ativan hs GERD- on pepcid hs DVT ppx- sc lovenox Full code Dispo- Medsurg Admission and Anticipated Discharge Date Admission Date: January 14, 2022 Subjective Patient seen and examined at bedside as a follow-up of right fifth finger cellulitis and right leg open wound with purulent drainage. Patient was lying in bed, on room air, NAD, denies any new acute events overnight. Patient reports eating okay and moving bowels okay. Patient reports pain at infection sites. Patient reports improving right upper extremity swelling. Patient denies headache/dizziness/chest pain/palpitation/sore throat/cough/other review of symptoms. Pt was upset w/ news of osteomyelitis in her RLE, consoled. Updated on plan of care. Physical Exam Physical Exam: GENERAL: Alert and oriented x3. NAD, on RA. [place] but uses notepad for communication. appears chornically ill and frail. HEENT: No pallor, no icterus. Pupils equal, round and reactive to light. Oral mucosa moist. NECK: No JVD, no neck masses. HEART: S1 and S2 heard. Regular rate and rhythm. No murmur, no gallop. RESPIRATORY SYSTEM: Normal AP diameter. No accessory muscle use. No wheezing, no crackles. ABDOMEN: Soft, bowel sounds present, nontender, no distention. CENTRAL NERVOUS SYSTEM: No facial droop. Speech is clear. Obeys simple c ommands. Moves extremities. EXTREMITIES: No BLE edema but chronic skin changes noted, also open wound w/ pus on Rt pastor noted, no erythema seen. Rt fifth finger w/ erythema/ tenderness/swelling noted, RUE swelling noted --> improving swelling. Results & Data Results & Data ([facility]) Vital Signs (Past 12 Hours) Vital Signs Temp Pulse Resp BP Pulse Ox O2 Del Method 01/16/22 15:46 36.7 C 96 H 22 98/62 L 95 Room Air 01/16/22 07:41 36.6 C 72 18 149/66 H 96 Room Air
[2022-01-16] MEDS: DAPTOmycin 450 MG in SYRINGE 0 ML IV SCH (17:50)
[2022-01-16] MEDS: LORazepam 0.5 MG TAB PO PRN (20:28)
[2022-01-16] MEDS: FAMOTIDINE 20 MG TAB PO SCH (20:28)
[2022-01-17 05:50] LABS: Hematocrit (blood only) 28.3 % (34.1-44.9); Hemoglobin 9.1 g/dl (12.0-16.0); Mean Corpuscular Hemoglobin 31.5 pg (25.0-34.0); Mean Corpuscular Hgb Conc 32.2 g/dL (32.0-36.0); Mean Corpuscular Volume 97.9 fL (80.0-100.0); Mean Platelet Volume 9.8 fL (9.4-12.3); Platelet Count 80 K/uL (130-400); RDW Coefficient of Variation 15.7 % (11.5-14.5); RDW Standard Deviation 56.4 fL (36.4-46.3); Red Blood Count 2.89 M/uL (3.93-5.22); White Blood Count 33.55 K/ul (4.8-10.8)
[2022-01-17] MEDS: CEFEPIME 2,000 MG in SYRINGE 0 ML IV SCH ×2 (05:50→17:52)
[2022-01-17 05:54] LABS: Calcium 8.3 mg/dl (8.5-10.1); Creatinine Clr Calc Pharmacy 35.9 ml/min; Est GFR (African American) 62.9 ml/min; Est GFR (Non-African American) 54.3 ml/min; Potassium 4.3 mmol/L (3.5-5.1)
[2022-01-17] MEDS: predniSONE 5 MG TAB PO SCH (08:19)
[2022-01-17] MEDS: ASPIRIN 81 MG ECTAB PO SCH (08:20)
[2022-01-17] MEDS: CITALOPRAM 20 MG TAB PO SCH (08:20)
[2022-01-17] MEDS: ENOXAPARIN INJ 40 MG/0.4 ML SYR SQ SCH (08:22)
--- NOTE | 2022-01-17 09:33 | CT Scan Report ---
RIGHT TIBIA/FIBULA CT CT DOSE: 369.84 mGy.cm HISTORY: Right leg infection. ? Artifact versus gas within the medullary cavity of the tibia, abnorm al MRI. TECHNIQUE: Multiaxial CT images of the right lower leg were performed and reformatted in the sagittal and coronal plane without the use of contrast. A dose lowering technique was utilized adhering to t he principles of ALARA. COMPARISON: Right lower leg MRI 01/15/2022 and radiographs 01/14/2022. Right lower leg CT 02/01/2021. FINDINGS: No acute fracture or dislocation within the right tibia or fibula. The bones are osteopenic . Old, healed fractures noted within the proximal tibia and proximal fibula. Evidence for prior remov al of a tibial intramedullary nga and the interlocking proximal and distal screws. No metallic hardwa re identified within the right lower leg at this time. No cortical destruction to suggest an osteomye litis. Mild periosteal irregularity at the old, healed tibial fracture site likely represents old pos ttraumatic change. The punctate foci susceptibility artifact within the medullary cavity of the tibia likely represents micrometallic artifact from the prior intramedullary nga. No evidence for gas with in the medullary cavity. Tiny densities throughout the medullary cavity likely represent a combinatio n of residual micrometallic foci and calcification/ossification of the medullary cavity. This could r esult in the appearance of the medullary cavity on the prior MRI. A medullary cavity infection would be impossible to exclude by CT but is considered less likely given the lack of significant erosive ch javan. Small partially visualized knee effusion. Moderate to severe osteoarthritis within the right kn ee. Diffuse subcutaneous trace edema within the right lower leg. No loculated fluid collections on th is noncontrast study to suggest an abscess. Severe calcified plaque within the lower extremity arteri al system. Soft tissue thickening/induration within the proximal anterior pretibial soft tissues favo rs postoperative scarring. IMPRESSION: 1. Old posttraumatic and postoperative changes again noted within the right tibia/fibula. 2. The punctate foci susceptibility artifact within the medullary cavity of the tibia likely represen ts micrometallic artifact from the prior intramedullary nga. No evidence for gas within the medullary cavity. 3. Tiny densities throughout the medullary cavity likely represent a combination of residual micromet allic foci and calcification/ossification of the medullary cavity. This could result in the appearanc e of the medullary cavity on the prior MRI. A medullary cavity infection would be impossible to exclu de by CT but is considered less likely given the lack of significant erosive change. 4. Diffuse subcutaneous edema within the right lower leg. No loculated fluid collections to suggest a n abscess. ACT 112: Negative or not required by law. Electronically signed by: Pelon Denton M.D. 01/17/2022 9:31 AM
--- NOTE | 2022-01-17 10:29 | Orthopedic Consultation ---
Date of Service January 17, 2022 Assessment & Plan (1) Chronic osteomyelitis involving lower leg: (2) Bullous eruption of hand: Plan 86-year-old female with history of osteoporotic fracture right tibia treated by [facility] orthopedics in [place], complicated by deep infection. She is developed a sinus tract on the medial tibia. This represents a chronic process. Separately, she is developed some bulla on the right small finger. With full painless ROM, there is no evidence of cellulitic or tenosynovitic process there. She is no evidence of flexor nor extensor tenosynovitis. Uncertain of the etiology at this point. -Recommend outpatient follow-up with previous orthopedic group for consideration of chronic osteomyelitis management. [facility] orthopedics and infectious disease would be appropriate for definitive management. Certainly, she seems well enough to be treated as an outpatient. -No evidence of infectious process in the hand requiring orthopedic surgical intervention. Consider ruling out endocarditis or other dermatologic manifestation. -Contact with further questions or worsening clinical condition. History of Present Illness Reason for Consultation: Right small finger swelling, concern for cellulitis Concern for right proximal tibia chronic osteomyelitis with draining wound. Requesting Physician: . 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 She also has under treatment with [facility] orthopedics for a proximal right tibia fracture that was complic ated by deep infection. She recently completed 6 weeks of parenteral therapy for the tibial infection. Patient reports her primary concern was the hand and the development of the wound over the right tibia. She feels otherwise well. Just not much pain. She wants to go home and does not want more surgery if possible. Allergies Allergy/AdvReac Type Severity Reaction Status Date / Time Cephalosporins Allergy Unknown UNKNOWN Verified 01/14/22 17:36 [email or web address] Allergy Unknown Unknown Verified 01/14/22 17:36 nitrofurantoin Allergy Unknown UNKNOWN Verified 01/14/22 17:36 oxaprozin Allergy Unknown UNKNOWN Verified 01/14/22 17:36 oxybutynin Allergy Unknown UNKNOWN Verified 01/14/22 17:36 Home Medications Medication Instructions Recorded Confirmed Type calcium citrate 250 mg 3 tab PO QAM 05/18/18 01/14/22 History calcium-vitamin D3 5 mcg (200 unit) tablet citalopram 10 mg tablet 10 mg PO QAM 05/18/18 01/14/22 History furosemide 20 mg tablet 20 mg PO QAM PRN Fluid Retention 05/18/18 01/14/22 History lorazepam 0.5 mg tablet 0.5 mg PO HS PRN Sleep, anxiety 05/18/18 01/14/22 History multivitamin 1 tab PO QAM 11/10/18 01/14/22 History potassium chloride 10 mEq 10 meq PO QAM PRN WHEN TAKES LASIX. 11/10/18 01/14/22 History tablet,extended release(part/cryst) (Klor-Con M) prednisone 5 mg tablet 5 mg PO QAM 11/10/18 01/14/22 History acetaminophen 325 mg capsule 325 mg PO Q6H PRN Pain 03/31/19 01/14/22 History diclofenac sodium 1 % topical gel 2 g topical QID PRN Pain 02/20/21 01/14/22 History naproxen sodium 220 mg tablet 220 mg PO BID 12/04/21 01/14/22 History (Aleve) cyanocobalamin (vitamin B-12) 1,000 mcg IM MONTHLY 01/14/22 01/14/22 History 1,000 mcg/mL injection solution famotidine 20 mg tablet 20 mg PO HS 01/14/22 01/14/22 History Past Med/Surg History Medical History Chronic lymphocytic leukemia Closed rib fracture Closed tibia fracture Diverticulosis of colon Dyslipidemia Fracture of spine REZA (generalized anxiety disorder) GERD (gastroesophageal reflux disease) History of squamous cell carcinoma Hypogammaglobulinemia, acquired Osteoarthritis Osteoporosis Stress reaction Surgical History History of orthopedic surgery Status post hysterectomy Family History Other Cancer Diabetes Heart disease Social History Smoking Status: Never smoker Second Hand Exposure: No; Do You Dip or Chew Tobacco: No; Hx Alcohol Use: No Hx Substance Use: No Preferred Language: Czech Communication Ability: Effective Communication Ability Comment: using 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 Physical Exam GEN: Appears well. Hard of hearing and frustrated by that. Walking around the room without pain. RUE: Sees diffuse chronic appearing ecchymotic edema to the forearm. The right forearm is nearly twice the size of her left cachectic forearm. Flecked range of motion's elbow wrist and digits. The right small finger has some palmar bulla appear to be chronic. There is no dermal edema. Full range of motion with no tenderness along the flexor nor extensor tendons in the hand. There is focal tenderness to the bulla formation. RLE: The right knee and proximal tibia have well-healed incisions. There is a punctate sinus that appears chronic on the medial aspect of the tibial face at about the 50 yard line. There is dry crusted chronic drainage. No active purulence. No palpable fluctuance. There is some edema that appears chronic and ecchymotic like her arm distally in the leg. Constitutional + well hydrated and + frail appearing; no acute distress and not intoxicated appearing Respiratory normal respiratory effort Results & Data Results & Data Laboratory Results H & H 01/14/22 01/15/22 01/16/22 Range/Units 15:45 05:32 07:34 Hgb 10.6 L 9.5 L 9.9 L (12.0-16.0) g/dl Hct 32.6 L 29.5 L 30.8 L (34.1-44.9) % 01/17/22 Range/Units 05:18 Hgb 9.1 L (12.0-16.0) g/dl Hct 28.3 L (34.1-44.9) % Coagulation 01/14/22 Range/Units 15:45 INR 1.0 (0.9-1.1) Microbiology 01/14/22 15:45 Aerobic Blood Culture - Preliminary Blood No growth in Aerobic bottle after 48 hours. Anaerobic Blood Culture - Preliminary No growth in Anaerobic bottle after 48 hours. 01/14/22 15:52 Aerobic Blood Culture - Preliminary Blood No growth in Aerobic bottle after 48 hours. Anaerobic Blood Culture - Preliminary No growth in Anaerobic bottle after 48 hours. 01/14/22 15:45 Gram Stain - Final Leg,Right Wound Culture - Final Pseudomonas aeruginosa Diagnostic Findings MRI right tibia: I reviewed the image as well as the radiologist rotation. I agree with the radiologist there is evidence of chronic edema. There is abundant artifact likely from previous screw tracks. No deep bone nor soft tissue abscesses requiring urgent surgical decompression. CT: Multiple screw tracks with some metallic debris. Given no focal abscesses or fluid collections requiring decompression. PG Care Time/CCT Total # of Minutes Spent Total Time Spent with Patient: Total time spent is greater than 50% in coordination of care (as documented) at patient's floor/unit and/or counseling patient: Coding Level of Care Code 35094 Inpt Consult Level 4 Diagnoses Chronic osteomyelitis involving lower leg M86.669 Bullous eruption of hand L13.9
[2022-01-17] MEDS: ADVANCED PROBIOTIC 1250 MG CAPSULE PO SCH (10:30)
--- NOTE | 2022-01-17 18:16 | Hospitalist Progress Note ---
Date of Service January 17, 2022 Assessment & Plan (1) Cellulitis of right lower extremity without foot: Plan #. Cellulitis of right upper extremity: #. Likely Postoperative wound infection to the right lower extremity with cellulitis Right forearm cellulitis, right fifth finger cellulitis, Right leg open wound with purulent discharge- does not meet SIRS or sepsis criteria at admission. Doesn't look sick or septic. WBC elevated but has CLL. Normal procal, ESR, CRP lactate. No fever. Vitals stable 01/14 blood culture: No growth so far 01/14 right leg wound culture: Pseudomonas aeruginosa 01/14 XR Rt leg: osteopenia w/ chronic post traumatic and postoperative findings noted. No evidence of OM. 01/15 MRI Rt leg: Tibial OM with involvement of the medulla, and a sinus in the anterior superior cortex. ?? Susceptibility artifacts, recommends CT. 01/[address]: susceptibility artefacts likely micrometallic artifact from prior Intramedullary nga. no gas or pus or abscess noted. Updated pt's son at bedside over the phone. ID consulted, await recommendation. c/w cefepime and dapto 01/15 --> dapto dropped 01/17. #. H/o OM RLE s/p HW removal and 6 weeks of IV ABx with dapto cefepime completed on December 20. Seen [address] Dr Lopez ID on 12/20. CLL- Follows Dr Vasquez. on ibrutinib and monthly IVIG per hemonc, seems she had her last IVIG 2 weeks back. Next appt on 01/29 REZA- on celexa, ativan hs GERD- on pepcid hs DVT ppx- sc lovenox Full code Dispo- Medsurg Admission and Anticipated Discharge Date Admission Date: January 14, 2022 Subjective Patient seen and examined at bedside as a follow-up of right fifth finger cellulitis and right leg open wound with purulent drainage. Patient was lying in bed, on room air, NAD, denies any new acute events overnight. Patient reports eating okay and moving bowels okay. Patient reports improving pain. Patient denies headache/dizziness/chest pain/palpitation/sore throat/cough/other review of symptoms. Physical Exam Physical Exam: GENERAL: Alert and oriented x3. NAD, on RA. [place] K[place] but uses notepad for communication. appears chornically ill and frail. HEENT: No pallor, no icterus. Pupils equal, round and reactive to light. Oral mucosa moist. NECK: No JVD, no neck masses. HEART: S1 and S2 heard. Regular rate and rhythm. No murmur, no gallop. RESPIRATORY SYSTEM: Normal AP diameter. No accessory muscle use. No wheezing, no crackles. ABDOMEN: Soft, bowel sounds present, nontender, no distention. CENTRAL NERVOUS SYSTEM: No facial droop. Speech is clear. Obeys simple commands. Moves extremities. EXTREMITIES: No BLE edema but chronic skin changes noted, also open wound on Rt pastor noted, no erythema seen/surrounding edema present. Rt fifth finger w/ erythema/tenderness/swelling noted-->improving, RUE swelling noted --> improving swelling. Results & Data Results & Data ([facility]) Vital Signs (Past 12 Hours) Vital Signs Temp Pulse Resp BP Pulse Ox O2 Del Method 01/17/22 14:23 36.7 C 103 H 16 118/66 95 Room Air 01/17/22 07:01 36.6 C 94 H 16 138/68 98 Room Air
[2022-01-17] MEDS: FAMOTIDINE 20 MG TAB PO SCH (20:00)
[2022-01-17] MEDS: LORazepam 0.5 MG TAB PO PRN (20:00)
[2022-01-18] MEDS: CEFEPIME 2,000 MG in SYRINGE 0 ML IV SCH ×2 (05:56→17:20)
[2022-01-18] MEDS: ADVANCED PROBIOTIC 1250 MG CAPSULE PO SCH (08:07)
[2022-01-18] MEDS: predniSONE 5 MG TAB PO SCH (08:08)
[2022-01-18] MEDS: ASPIRIN 81 MG ECTAB PO SCH (08:08)
[2022-01-18] MEDS: ENOXAPARIN INJ 40 MG/0.4 ML SYR SQ SCH (08:12)
[2022-01-18 09:29] LABS: Creatinine Clr Calc Pharmacy 37.9 ml/min; Est GFR (African American) 67.1 ml/min; Est GFR (Non-African American) 57.9 ml/min
[2022-01-18] MEDS: CITALOPRAM 20 MG TAB PO SCH (10:47)
--- NOTE | 2022-01-18 14:59 | Hospitalist Progress Note ---
Date of Service January 18, 2022 Assessment & Plan (1) Bullous eruption of hand: (2) Chronic osteomyelitis involving lower leg: (3) Cellulitis of right lower extremity without foot: (4) Cellulitis of right upper extremity: (5) Pseudomonas aeruginosa infection: Plan Cellulitis of right upper extremity Likely Postoperative wound infection to the right lower extremity with cellulitis Right forearm cellulitis, right fifth finger cellulitis, Right leg open wound with purulent discharge- does not meet SIRS or sepsis criteria at admission. Doesn't look sick or septic. WBC elevated but has CLL. Normal procal, ESR, CRP lactate. No fever. Vitals stable 01/14 blood culture:No growth so far 01/14 right leg wound culture:Pseudomonasaeruginosa 01/14 XR Rt leg: osteopenia w/ chronic post traumatic and postoperative findings noted. No evidence of OM. 01/15 MRI Rt leg: Tibial OM with involvement of the medulla, and a sinus in the anterior superior cortex. ?? Susceptibility artifacts, recommends CT. 01/[address]: susceptibility artefacts likely micrometallic artifact from prior Intramedullary nga. no gas or pus or abscess noted. Updated pt's son at bedside over the phone ID consulted, awaiting recommendation Continue cefepime. Previously on IV Dapto as well but discontinued on 01/17 H/o Osteomyelitis of RLE s/p HW removaland 6 weeks of IV ABx with dapto cefepime completedon December 20. Se[address] Lopez ID on 12/20 CLL- Follows Dr Vasquez. on ibrutinib and monthly IVIG per hemon, seems she had her last IVIG 2 weeks back. Next appt on 01/29 REZA- on celexa, ativan hs GERD- on pepcid hs DVT ppx- sc lovenox Full code Dispo- Medsurg Admission and Anticipated Discharge Date Admission Date: January 14, 2022 Supervising Physician Co-Signing Physician Notes Patient seen and examined at bedside for cellulitis of right upper extremity and likely postoperative wound infection to the right lower extremity with cellulitis and likely chronic osteomyelitis. Patient remains on cefepime for Pseudomonas in wound culture. MRI suggestive of tibial OM. Upon examination: RUE cellulitis/swelling/erythema improving. RLE wound with serous drainage upon pressure application. Rest of the exam as per above. I have seen and examined the patient and have discussed the case with the provider above. I agree with the assessment and plan as stated. Subjective Seen and examined in 350-2. Sitting comfortably with visitor from voodoo. Feeling well today without any acute changes. Eating okay and moving bowels. Pain improving has been ambulating the halls. R hand less swollen, per patient. No fever, chills, chest pain, shortness of breath, nausea, vomiting, abdominal pain, dysuria or diarrhea. Communicated via iPad due to patient hard of hearing. Review of Systems Review of Systems: At least ten systems reviewed and negative except as noted in the HPI. Physical Exam Physical Exam: Gen: WD/WN, NAD, sittingon side of bed, A&Ox3. Hard of hearing, using Tablet for communication HEENT: Normocephalic, atraumatic, conjunctivae moist, sclerae anicteric, mucous membranes moist Lung: Clear to Auscultation bilaterally, no wheezes/rales/rhonchi Heart: Regular rate, regular rhythm, no murmurs, rubs, or gallops Abdomen: Soft, NT, ND +BS x 4 Extremities: no edema Skin: Warm, no rash. Chronic skin changes with open wound on anterior RLE. Serous drainage, not purulent. No surrounding erythema. Rt fifth finger w/ erythema/tenderness/swelling noted Results & Data Results & Data ([facility]) Vital Signs (Past 12 Hours) Vital Signs Temp Pulse Resp BP Pulse Ox O2 Del Method 01/18/22 14:50 36.4 C L 93 H 20 138/74 96 Room Air 01/18/22 11:52 36.5 C 93 H 20 153/72 H 98 Room Air 01/18/22 09:20 Room Air 01/18/22 07:45 36.4 C L 107 H 16 153/61 H 96 Room Air Laboratory Results BMP 01/18/22 08:01 Creatinine 0.91 Diagnostic Findings Tibia/Fibula X-Ray 01/14/22 18:14 RIGHT TIBIA AND FIBULA 2 VIEWS CLINICAL HISTORY: Right leg infection. FINDINGS: AP and lateral views of the right tibia and fibula are compared to study dated 02/09/2021. The skeletal structures are osteopenic. There is chronic posttraumatic deformity of the right proximal tibia and fibula. Postsurgical change/screw tracts are noted throughout the tibia. No cortical erosion or bony destructive change is identified. Advanced arthritic change is noted in the knee. The ankle mortise appears intact. There is diffuse soft tissue atrophy and mild soft tissue edema. Advanced atherosclerotic calcification is noted in the regional arteries. IMPRESSION: 1. Osteopenia with chronic posttraumatic and postoperative findings as above. 2. No acute fracture is identified and there is no radiographic evidence of osteomyelitis. 3. Diffuse atrophy and mild soft tissue edema is present throughout the leg. Electronically signed by: Jaime Horvath M.D. 01/14/2022 9:25 PM Lower Extremity MRI 01/15/22 18:11 MR lower leg RT wo/w con CLINICAL HISTORY: r/o OM, rt ship wound w/ pus. TECHNIQUE: Multisequence, multiplanar MR images of the right lower leg were obtained without contrast COMPARISON: Comparison is made to MRI right lower leg 02/08/2021 and tibia and fibula radiographs 01/14/2022 FINDINGS: Patient is status post hardware removal. Susceptibility artifacts are seen. There is diffuse enhancement and edema in the medulla of the bone with some cortical erosion noted in the anterior superior aspect of the tibia (series 23 image 19). There is a linear defect in the superior tibia which likely represents old fracture (series 18 image 17). No joint effusion is seen. Mild soft tissue stranding is noted. IMPRESSION: 1. Findings are concerning for osteomyelitis in the tibia with involvement of the medulla and a sinus in the anterior superior cortex, these are considered less likely to represent purely posttreatment changes. 2. Susceptibility artifacts may represent gas or retained metallic fragments, CT may be performed to assess these findings. 3. Surrounding soft tissue edema is seen which may represent cellulitis. 4. Post surgical changes of hardware removal are seen. ACT 112: Negative or not required by law. Electronically signed by: Sarabjit Wade M.D. 01/16/2022 10:[address] 01/16/22 17:22 RIGHT TIBIA/FIBULA CT CT DOSE: 369.84 mGy.cm HISTORY: Right leg infection. ? Artifact versus gas within the medullary cavity of the tibia, abnormal MRI. TECHNIQUE: Multiaxial CT images of the right lower leg were performed and reformatted in the sagittal and coronal plane without the use of contrast. A dose lowering technique was utilized adhering to the principles of ALARA. COMPARISON: Right lower leg MRI 01/15/2022 and radiographs 01/14/2022. Right lower leg CT 02/01/2021. FINDINGS: No acute fracture or dislocation within the right tibia or fibula. The bones are osteopenic. Old, healed fractures noted within the proximal tibia and proximal fibula. Evidence for prior removal of a tibial intramedullary nga and the interlocking proximal and distal screws. No metallic hardware identified within the right lower leg at this time. No cortical destruction to suggest an osteomyelitis. Mild periosteal irregularity at the old, healed tibial fracture site likely represents old posttraumatic change. The punctate foci susceptibility artifact within the medullary cavity of the tibia likely represents micrometallic artifact from the prior intramedullary nga. No evidence for gas within the medullary cavity. Tiny densities throughout the medullary cavity likely represent a combination of residual micrometallic foci and calcification/ossification of the medullary cavity. This could result in the appearance of the medullary cavity on the prior MRI. A medullary cavity infection would be impossible to exclude by CT but is considered less likely given the lack of significant erosive change. Small partially visualized knee effusion. Moderate to severe osteoarthritis within the right knee. Diffuse subcutaneous trace edema within the right lower leg. No loculated fluid collections on this noncontrast study to suggest an abscess. Severe calcified plaque within the lower extremity arterial system. Soft tissue thickening/induration within the proximal anterior pretibial soft tissues favors postoperative scarring. IMPRESSION: 1. Old posttraumatic and postoperative changes again noted within the right tibia/fibula. 2. The punctate foci susceptibility artifact within the medullary cavity of the tibia likely represents micrometallic artifact from the prior intramedullary nga. No evidence for gas within the medullary cavity. 3. Tiny densities throughout the medullary cavity likely represent a combination of residual micrometallic foci and calcification/ossification of the medullary cavity. This could result in the appearance of the medullary cavity on the prior MRI. A medullary cavity infection would be impossible to exclude by CT but is considered less likely given the lack of significant erosive change. 4. Diffuse subcutaneous edema within the right lower leg. No loculated fluid collections to suggest an abscess. ACT 112: Negative or not required by law. Electronically signed by: Pelon Denton M.D. 01/17/2022 9:31 AM
[2022-01-18] MEDS: FAMOTIDINE 20 MG TAB PO SCH (22:03)
[2022-01-19] MEDS: CEFEPIME 2,000 MG in SYRINGE 0 ML IV SCH ×2 (05:16→17:47)
[2022-01-19] MEDS ORDERED: ACETAMINOPHEN 500 MG TAB PO PRN (05:33)
[2022-01-19] MEDS: CITALOPRAM 20 MG TAB PO SCH (07:55)
[2022-01-19] MEDS: ASPIRIN 81 MG ECTAB PO SCH (07:56)
[2022-01-19] MEDS: ENOXAPARIN INJ 40 MG/0.4 ML SYR SQ SCH (07:56)
[2022-01-19] MEDS: ADVANCED PROBIOTIC 1250 MG CAPSULE PO SCH (07:56)
[2022-01-19] MEDS: predniSONE 5 MG TAB PO SCH (07:56)
--- NOTE | 2022-01-19 17:38 | Hospitalist Progress Note ---
Date of Service January 19, 2022 Assessment & Plan (1) Bullous eruption of hand: (2) Chronic osteomyelitis involving lower leg: (3) Cellulitis of right lower extremity without foot: (4) Cellulitis of right upper extremity: (5) Pseudomonas aeruginosa infection: Plan Cellulitis of right upper extremity Likely Postoperative wound infection to the right lower extremity with cellulitis Right forearm cellulitis, right fifth finger cellulitis, Right leg open wound with purulent discharge- does not meet SIRS or sepsis criteria at admission. Doesn't look sick or septic. WBC elevated but has CLL. Normal procal, ESR, CRP lactate. No fever. Vitals stable 01/14 blood culture:No growth 01/14 right leg wound culture:Pseudomonasaeruginosa 01/14 XR Rt leg: osteopenia w/ chronic post traumatic and postoperative findings noted. No evidence of OM. 01/15 MRI Rt leg: Tibial OM with involvement of the medulla, and a sinus in the anterior superior cortex. ?? Susceptibility artifacts, recommends CT. 01/[address]: susceptibility artefacts likely micrometallic artifact from prior Intramedullary nga. no gas or pus or abscess noted. ID consulted, awaiting recommendation Continue cefepime 01/15. Previously on IV Dapto as well but discontinued on 01/17 H/o Osteomyelitis of RLE s/p HW removaland 6 weeks of IV ABx with dapto cefepime completedon December 20. [address] Lopez ID on 12/20 CLL- Follows Dr Vasquez. on ibrutinib and monthly IVIG per hemonc, seems she had her last IVIG 2 weeks back. Next appt on 01/29 REZA- on celexa, ativan hs GERD- on pepcid hs DVT ppx- sc lovenox Full code Dispo- Medsurg Admission and Anticipated Discharge Date Admission Date: January 14, 2022 Subjective Patient seen and examined at bedside as a follow-up of right fifth finger cellulitis and right leg open wound with purulent drainage. Patient was lying in bed, on room air, NAD, denies any new acute events overnight. Patient reports eating okay and moving bowels okay. Patient reports pain at infection sites. Patient reports improving right upper extremity swelling. Patient denies headache/dizziness/chest pain/palpitation/sore throat/cough/other review of symptoms. Physical Exam Physical Exam: GENERAL: Alert and oriented x3. NAD, on RA. [place] but uses notepad for communication. HEENT: No pallor, no icterus. Pupils equal, round and reactive to light. Oral mucosa moist. NECK: No JVD, no neck masses. HEART: S1 and S2 heard. Regular rate and rhythm. No murmur, no gallop. RESPIRATORY SYSTEM: Normal AP diameter. No accessory muscle use. No wheezing, no crackles. ABDOMEN: Soft, bowel sounds present, nontender, no distention. CENTRAL NERVOUS SYSTEM: No facial droop. Speech is clear. Obeys simple commands. Moves extremities. EXTREMITIES: No BLE edema but chronic skin changes noted, also open wound on Rt pastor noted w/ expressible serous on pressure application, no erythema seen/surrounding edema present. Rt fifth finger w/ erythema/tenderness/swelling noted-->improving better, RUE swelling noted --> improving swelling. Results & Data Results & Data ([facility]) Vital Signs (Past 12 Hours) Vital Signs Temp Pulse Resp BP Pulse Ox O2 Del Method 01/19/22 15:47 36.5 C 91 H 16 134/81 94 Room Air 01/19/22 07:38 36.4 C L 70 16 156/67 H 99 Room Air
[2022-01-19] MEDS: FAMOTIDINE 20 MG TAB PO SCH (20:54)
[2022-01-19] MEDS ORDERED: MELATONIN 3 MG TAB PO SCH (21:00)
[2022-01-20] MEDS: CEFEPIME 2,000 MG in SYRINGE 0 ML IV SCH (05:28)
[2022-01-20] MEDS: CITALOPRAM 20 MG TAB PO SCH (07:52)
[2022-01-20] MEDS: predniSONE 5 MG TAB PO SCH (07:52)
[2022-01-20] MEDS: ASPIRIN 81 MG ECTAB PO SCH (07:53)
[2022-01-20] MEDS: ADVANCED PROBIOTIC 1250 MG CAPSULE PO SCH (07:53)
[2022-01-20] MEDS: ENOXAPARIN INJ 40 MG/0.4 ML SYR SQ SCH (07:54)
--- NOTE | 2022-01-20 13:28 | Discharge Summary ---
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 Patient had fracture right tibia and fibula last winter with HW placement but developed infection to right tibia this spring and was taken to OR for I and D with hardware removal, wound clx showed MRSA and pseudomonas and hence she completed her 6 weeks of IV antibiotics (initially vanc/cefepime later dapto/cefepime) without signs of residual infection and was evaluated by ID on 20 December. At that time, it was noted she had a small opening but no drainage, ID discussed with ortho Dr Zaragoza who did not recommend group home suppressive antibiotics as hardware out and there was no concern for residual infection. She was doing fine until January 04 when she developed redness and swelling in right upper extremity/hand with some painful rash. She was seen by PCP 5 days back, had blood test and US UE and was placed on doxycycline but no improvement. This morning, her right pastor open wound had some discharge and her PCP sent her to the ED for further evaluation. She denies any fever, chills, nausea, vomiting, shortness of breath. She has chronic lymphedema of her upper extremity but it is worse and erythematous and has painful spots in right hand. She feels fatigued. Caregiver at bedside. Admission Exam Per Admitting Provider General: Frail elderly female, Hard of hearing and communicating with screen with voice command. Sitting comfortably in bed, not in distress, on room air HEENT: EOMI, JAIME, MMM Chest: Clear breath sounds bilaterally, no wheezes or crackles CVS: Regular rate and rhythm, normal heart sounds, no murmur Abdomen: Soft, non tender, not distended, normal bowel sounds Neuro: Awake, alert, oriented, conversing well, non focal Extremities: Chronic lymphedema. Right forearm erythematous, right palm with some rash, right fifth finger cellulitis with erythema, tenderness and swelling. Right leg with open wound from which some purulent drainage can be expressed Principal Diagnosis Cellulitis of right fifth finger Chronic osteomyelitis involving right lower leg Likely postoperative wound infection to the right lower extremity with cellulitis, Pseudomonas aeruginosa infection Discharge Exam GENERAL: Alert and oriented x3. NAD, on RA. [place] but uses notepad for communication. HEENT: No pallor, no icterus. Pupils equal, round and reactive to light. Oral mucosa moist. NECK: No JVD, no neck masses. HEART: S1 and S2 heard. Regular rate and rhythm. No murmur, no gallop. RESPIRATORY SYSTEM: Normal AP diameter. No accessory muscle use. No wheezing, no crackles. ABDOMEN: Soft, bowel sounds present, nontender, no distention. CENTRAL NERVOUS SYSTEM: No facial droop. Speech is clear. Obeys simple commands. Moves extremities. EXTREMITIES: No BLE edema but chronic skin changes noted, also open wound on Rt pastor noted w/ expressible serous on pressure application, no erythema seen/surrounding edema present. Rt fifth finger w/ erythema/tenderness/swelling noted-->improved significantly, RUE swelling noted -->around baseline, has chronic lymphedema. Discharge Data Allergies Allergy/AdvReac Type Severity Reaction Status Date / Time Cephalosporins Allergy Unknown UNKNOWN Verified 01/14/22 17:36 mirabegron Allergy Unknown Unknown Verified 01/14/22 17:36 nitrofurantoin Allergy Unknown UNKNOWN Verified 01/14/22 17:36 oxaprozin Allergy Unknown UNKNOWN Verified 01/14/22 17:36 oxybutynin Allergy Unknown UNKNOWN Verified 01/14/22 17:36 Consultations 01/14/22 17:24 ED Decision to Admit Stat 01/15/22 17:51 Consult Infectious Diseases Routine 01/17/22 07:52 Consult Orthopedic Surgery Routine Ordered Studies 01/15/22 18:11 MR lower leg RT wo/w con Routine 01/16/22 17:22 CT leg [CT tib/fib RT wo con] Routine Hospital Course (1) Bullous eruption of hand: (2) Chronic osteomyelitis involving lower leg: (3) Cellulitis of right lower extremity without foot: (4) Cellulitis of right upper extremity: (5) Pseudomonas aeruginosa infection: Plan 86 yo F was managed for the following while in hospital: Cellulitis of right upper extremity Likely Postoperative wound infection to the right lower extremity with cellulitis Right forearm cellulitis, right fifth finger cellulitis, Right leg open wound with purulent discharge- does not meet SIRS or sepsis criteria at admission. Doesn't look sick or septic. WBC elevated but has CLL. Normal procal, ESR, CRP lactate. No fever. Vitals stable 01/14 blood culture:No growth 01/14 right leg wound culture:Pseudomonasaeruginosa 01/14 XR Rt leg: osteopenia w/ chronic post traumatic and postoperative findings noted. No evidence of OM. 01/15 MRI Rt leg: Tibial OM with involvement of the medulla, and a sinus in the anterior superior cortex. ?? Susceptibility artifacts, recommends CT. 01/[address]: susceptibility artefacts likely micrometallic artifact from prior Intramedullary nga. no gas or pus or abscess noted. ID consulted, Cipro 500 mg bid until seen by ID in 6-8 weeks. Pt was on cefepime since 01/15 until discharged day. Pt to get weekly EKG/CBC/CMP while on antibiotic. C/w probiotic. Pt to follow up w/ her orthopedic as outpatient. H/o Osteomyelitis of RLE s/p HW removaland 6 weeks of IV ABx with dapto cefepime completedon December 20. Seen by Dr John ARDON on 12/20 CLL- Follows Dr Vasquez. on ibrutinib and monthly IVIG per hemonc, seems she had her last IVIG 2 weeks back. Next appt on 01/29 REZA- on celexa, ativan hs GERD- on pepcid hs Full code Patient being discharged to home with home health with following instruction at the point of discharge: Follow-up with your primary care physician within a week time. You have been evaluated by infectious disease doctor while inpatient, you are being discharged on ciprofloxacin 500 mg twice a day until your follow-up appointment with infectious disease doctor in [facility] in 6 to 8 weeks. You will be discharged with 30 days worth of antibiotic, get in touch with your primary care physician for further evaluation and continuation of your antibiotic prescription. You will need EKG weekly while on antibiotic for heart monitoring. Get in touch w/ your PCP office for EKG. You were evaluated by orthopedics while inpatient, you will need to follow-up with your established orthopedic as an outpatient for evaluation and management of your chronic osteomyelitis. Get your blood work CBC and CMP weekly while on antibiotic. Take probiotic while on antibiotic. Take your other medications as prior. Total Time Total Time Spent Total Time Spent (In Minutes): 40 Discharge Plan Discharge Items Patient Disposition: Home - Home Health Services Reason For Visit: RIGHT HAND AND LEG INFECTION Discharge Diagnosis: Cellulitis of right fifth finger Chronic osteomyelitis involving right lower leg Likely postoperative wound infection to the right lower extremity with cellulitis, Pseudomonas aeruginosa infection Activity: Resume your previous activity Non-emergency contact: Primary Care Provider Call non-emergency contact if: you have any medication questions, your symptoms worsen, your pain is not controlled and your temperature is above 101 Follow-up/Referrals: Willem Estrada MD [Primary Care Provider] - Diet: Regular Addtl Attending Provider Instructions: Follow-up with your primary care physician within a week time. You have been evaluated by infectious disease doctor while inpatient, you are being discharged on ciprofloxacin 500 mg twice a day until your follow-up appointment with infectious disease doctor in [facility] in 6 to 8 weeks. You will be discharged with 30 days worth of antibiotic, get in touch with your [facility] physician for further evaluation and continuation of your antibiotic prescription. You will need EKG weekly while on antibiotic for heart monitoring. Get in touch w/ your PCP office for EKG. You were evaluated by orthopedics while inpatient, you will need to follow-up with your established orthopedic as an outpatient for evaluation and management of your chronic osteomyelitis. Get your blood work CBC and CMP weekly while on antibiotic. Take probiotic while on antibiotic. Take your other medications as prior. Pending Studies at Discharge: No Stand-Alone Forms: My [facility] [employer], Smoking Cessation Medications and DC Order Prescriptions: New aspirin 81 mg Tablet,Delayed Release (Dr/Ec) 81 mg PO QAM Qty: 30 0RF Advanced Probiotic 625 mg (10 billion cell) Capsule 2 cap PO DAILY Qty: 60 0RF ciprofloxacin HCl [Cipro] 500 mg tablet 500 mg PO BID Qty: 60 0RF Continued acetaminophen 325 mg capsule 325 mg PO Q6H PRN (Reason: Pain) citalopram 10 mg Tablet 10 mg PO QAM lorazepam 0.5 mg Tablet 0.5 mg PO HS PRN (Reason: Sleep, anxiety) Rx Instructions: Takes at night for sleep, may take during the daylight hours for anxiety furosemide 20 mg Tablet 20 mg PO QAM PRN (Reason: Fluid Retention) Rx Instructions: give 1 tab by mouth in the morning related to EDEMA calcium citrate-vitamin D3 250 mg calcium- 200 unit Tablet 3 tab PO QAM multivitamin Tablet 1 tab PO QAM prednisone 5 mg tablet 5 mg PO QAM potassium chloride [Klor-Con M10] 10 mEq tablet,ER particles/crystals 10 meq PO QAM PRN (Reason: WHEN TAKES LASIX.) famotidine 20 mg Tablet 20 mg PO HS cyanocobalamin (vitamin B-12) [Vitamin B-12] 1,000 mcg/mL Solution 1,000 mcg IM MONTHLY Rx Instructions: PT STATES "WHEN EVER I REMEMBER OR WHEN I THINK I NEED IT". diclofenac sodium 1 % gel 2 g TOPICAL QID PRN (Reason: Pain) Rx Instructions: apply to right hand for pain naproxen sodium [Aleve] 220 mg Tablet 220 mg PO BID Discharge Orders: Discharge Order (Routine); Ordered 01/20/22 Ordered By: Bety Batres Admission Data Admit Date/Time: 01/14/22 18:20 Attending Provider: Bety Batres Admit Provider: Hieu Vásquez Primary Care Provider: Willem Estrada Other Providers: Hieu Vásquez ; Almas Wilkins ; Go Cowan ; Wes Gómez I. ; John Goel II ; Cynthia Will ; Ji Jeffrey ; Shane Rodriguez ; Sina Oh ; Lashonda Gómez ; [facility]
== END 2022-01-20 14:48 | disposition home health service (06) | DRG 863 ==
LOC: ED 15:12 → SUATTDRO 18:20 → 3W 18:20
DX: Y83.8 Other surgical procedures as the cause of abnormal reaction of the patient, or of later complication, without mention of misadventure at the time of the procedure; T81.49XA Infection following a procedure, other surgical site, initial encounter; K21.9 Gastro-esophageal reflux disease without esophagitis; L03.115 Cellulitis of right lower limb; Y92.009 Unspecified place in unspecified non-institutional (private) residence as the place of occurrence of the external cause; M86.661 Other chronic osteomyelitis, right tibia and fibula; C91.90 Lymphoid leukemia, unspecified not having achieved remission; B96.5 Pseudomonas (aeruginosa) (mallei) (pseudomallei) as the cause of diseases classified elsewhere; Z88.1 Allergy status to other antibiotic agents; F41.1 Generalized anxiety disorder; Z88.8 Allergy status to other drugs, medicaments and biological substances; L03.011 Cellulitis of right finger; D80.1 Nonfamilial hypogammaglobulinemia

== ENCOUNTER 2022-08-16 13:56 | Inpatient (IN) ==
--- NOTE | 2022-08-16 15:19 | XRay Report ---
XR chest 2V PA/lateral HISTORY: 86 years-old Female SOB acute shortness of breath COMPARISON: Chest CT 02/09/2021 TECHNIQUE: PA and lateral views of the chest FINDINGS: Cardiac silhouette is enlarged. Atherosclerosis of the aorta. No pneumothorax, pleural effusion, airs pace consolidation or overt pulmonary edema. Degenerative changes of the spine and left shoulder. Rev erse right shoulder total joint arthroplasty. Bilateral breast calcifications are again noted. Chroni c posterior left sixth rib fracture. IMPRESSION: No acute process. ACT 112: Negative or not required by law. The above report was generated using voice recognition software. It may contain grammatical, syntax o r spelling errors. Electronically signed by: Bobby Petit M.D. 08/16/2022 3:16 PM
[2022-08-16] MEDS ORDERED: SODIUM CHLORIDE 0.9% 250 ML IV PRN ×2 (18:14→21:37)
[2022-08-16 18:42] LABS: Hematocrit (blood only) 23.9 % (37.0-47.0); Hemoglobin 6.6 g/dl (12.0-16.0); Mean Corpuscular Hemoglobin 24.5 pg (25.0-34.0); Mean Corpuscular Hgb Conc 27.6 g/dL (32.0-36.0); Mean Corpuscular Volume 88.8 fL (80.0-100.0); Mean Platelet Volume 9.4 fL (9.4-12.4); Platelet Count 92 K/uL (130-400); RDW Coefficient of Variation 14.5 % (11.5-14.5); RDW Standard Deviation 45.9 fL (36.4-46.3); Red Blood Count 2.69 M/uL (4.20-5.40); White Blood Count 62.43 K/ul (4.8-10.8)
[2022-08-16 18:44] LABS: Alanine Aminotransferase 18 U/L (7-52); Albumin Globulin Ratio 1.3 (0.9-2); Albumin Level 3.7 gm/dl (3.4-5.0); Alkaline Phosphatase 59 U/L (34-104); Anion Gap 4 (3-11); Aspartate Aminotransferase 20 U/L (13-39); BUN Creatinine Ratio 39.8 (10-20); Bilirubin,Total 0.4 mg/dl (0.2-1.0); Blood Urea Nitrogen 41 mg/dl (6-23); Calcium 8.3 mg/dl (8.5-10.1); Carbon Dioxide 26 mmol/L (21-32); Chloride 110 mmol/L (98-107); Est GFR (African American) 57.8 ml/min; Est GFR (Non-African American) 49.9 ml/min; Globulin 2.9 gm/dl (2.5-4.0); Glucose 95 mg/dl (70-99(Fasting)); Magnesium 2.1 mg/dl (1.7-2.4); Potassium 4.8 mmol/L (3.5-5.1); Sodium 140 mmol/L (136-145); Total Protein 6.6 gm/dl (6.0-8.3)
[2022-08-16 18:49] LABS: Troponin I High Sensitivity 8.3 pg/ml (0-14)
--- NOTE | 2022-08-16 18:56 | Emergency Department Note ---
Impression & Plan Anemia ED Provider Note INFORMANT: Patient ED PROVIDER(S): Shreyas Price DO CHIEF COMPLAINT: Anemia PLAN: Disposition: Admission Condition: Stable Outpatient prescription management: none Referral: I spoke with the hospitalist, who will see the patient for admission/observation and further evaluation and consultation. MEDICAL DECISION MAKING: This is a 86-year-old female who presents to the ED with a chief complaint of needing a blood transfusion. The patient states that she is anemic. The patient states that she had blood work on Friday and again earlier today. She was referred to the ED for her blood work today as she was anemic. She did not know the number. I did review the [facility] charts that revealed that the hemoglobin is 6.8 today. Her hemoglobin is typically around 9 or 10. Hemoglobin today here is 6.6. The white blood cell count is 62. She does have CLL. A chest x-ray did not show acute process. EKG shows normal sinus rhythm with T wave inversions anteriorly. BUN is 41. Creatinine was normal. An elevated BUN could be related to dehydration or possibly upper GI bleed. She does have guaiac positive stools on my exam but they are brown. The patient was ordered a blood transfusion. I did recommend admitting the patient to the hospital for further monitoring of her symptoms and possibly additional blood transfusions. The patient did receive a blood transfusion here. I spoke with the hospitalist, who will see the patient for further inpatient evaluation and care. She did receive a blood transfusion here. Triage Nursing notes reviewed. Vital Signs: reviewed [facility] /[facility]. Hemoglobin this morning was 6.8. Differential diagnosis: GI bleed, chronic anemia related to her leukemia, electrolyte abnormality, de hydration Diagnostics, as interpreted by me: 12 lead ECG: Normal sinus rhythm at a rate of 93 with T wave inversions anteriorly. No ST elevation. No PVCs. Normal QTc Cardiac Monitoring ordered: Sinus rhythm in the 80s and 90s. Medical decision rules: [none] Imaging studies: Chest x-ray: Negative for acute disease. Procedures: none. Critical care: I have personally spent 30 minutes of critical care time in the direct management of this patient. This includes bedside care, interpretation of diagnostic studies, and testing, discussion with consultants, patient, and family members, and other required patient management activities. This 30 minutes is in excess of all separately billable procedures. HPI: See MDM above. PAST MEDICAL HISTORY: See Below PAST SURGICAL HISTORY: See Below SOCIAL HISTORY: See Below HOME MEDICATIONS: See Below ALLERGIES: See Below VITALS: See Below PHYSICAL EXAMINATION: CONSTITUTIONAL/VITAL SIGNS: Reviewed GENERAL: Non-toxic in appearance. INTEGUMENTARY: Warm, dry, and [place]. HEAD: Normocephalic. EYES: without scleral icterus. ENT/OROPHARYNX: clear and moist. RESPIRATORY: No increased work of breathing. Lungs clear. CARDIOVASCULAR: Regular rate. Regular rhythm. GI/ABDOMEN: Soft and nontender. . EXTREMITIES: Normal NEUROLOGICAL: Intact without focal deficits. PSYCHIATRIC: Normal affect. MUSCULOSKELETAL: Normal. TRIAGE NURSING DOCUMENTATION REVIEWED. Past Med/Surg History Medical History Chronic lymphocytic leukemia Closed rib fracture Closed tibia fracture Diverticulosis of colon Dyslipidemia Fracture of spine REZA (generalized anxiety disorder) GERD (gastroesophageal reflux disease) History of squamous cell carcinoma Hypogammaglobulinemia, acquired Osteoarthritis Osteoporosis Stress reaction Surgical History History of orthopedic surgery Status post hysterectomy Family History Other Cancer Diabetes Heart disease Social History Smoking Status: Never smoker Second Hand Exposure: No; Hx Alcohol Use: No Hx Substance Use: No Preferred Language: Malay Communication Ability: Effective Steel Buffer Required: No Beliefs That Will Affect Care: None marital status: / Current Living Situation: Alone Current Living Situation Comment: Caregiver Fri 8-10 am Feels Safe at Home: Yes Assistive Devices: Stair Lift and Walker Allergies Allergies Allergy/AdvReac Type Severity Reaction Status Date / Time Cephalosporins Allergy Unknown UNKNOWN Verified 01/14/22 17:36 mirabegron Allergy Unknown Unknown Verified 01/14/22 17:36 nitrofurantoin Allergy Unknown UNKNOWN Verified 01/14/22 17:36 oxaprozin Allergy Unknown UNKNOWN Verified 01/14/22 17:36 oxybutynin Allergy Unknown UNKNOWN Verified 01/14/22 17:36 Home Meds Home Medications Medication Instructions Recorded Confirmed calcium citrate 250 mg 3 tab PO QAM 05/18/18 01/14/22 calcium-vitamin D3 5 mcg (200 unit) tablet citalopram 10 mg tablet 10 mg PO QAM 05/18/18 01/14/22 furosemide 20 mg tablet 20 mg PO QAM PRN Fluid Retention 05/18/18 01/14/22 lorazepam 0.5 mg tablet 0.5 mg PO HS PRN Sleep, anxiety 05/18/18 01/14/22 multivitamin 1 tab PO QAM 11/10/18 01/14/22 potassium chloride 10 mEq 10 meq PO QAM PRN WHEN TAKES LASIX. 11/10/18 01/14/22 tablet,extended release(part/cryst) (Klor-Con M) prednisone 5 mg tablet 5 mg PO QAM 11/10/18 01/14/22 acetaminophen 325 mg capsule 325 mg PO Q6H PRN Pain 03/31/19 01/14/22 diclofenac sodium 1 % topical gel 2 g topical QID PRN Pain 02/20/21 01/14/22 naproxen sodium 220 mg tablet 220 mg PO BID 12/04/21 01/14/22 (Aleve) cyanocobalamin (vitamin B-12) 1,000 mcg IM MONTHLY 01/14/22 01/14/22 1,000 mcg/mL injection solution famotidine 20 mg tablet 20 mg PO HS 01/14/22 01/14/22 Previous Rx's Medication Instructions Recorded L.acidop,casei,lactis,rham-B.lact,thais 2 cap PO DAILY #60 caps 01/20/22 625 mg (10 billion cell) capsule (Advanced Probiotic) aspirin 81 mg tablet,delayed 81 mg PO QAM #30 tabs 01/20/22 release ciprofloxacin HCl 500 mg tablet 500 mg PO BID #60 tabs 01/20/22 (Cipro) Results & Data (ED) Vital Signs Vital Signs - 24 hr 08/16/22 14:35 Temperature 37.4 C Temperature Source Temporal Artery Scan Pulse Rate 102 H Respiratory Rate 20 Respiratory Effort / Characteristics Non-Labored Spontaneous Respiratory Depth Normal Respiratory Pattern Regular Blood Pressure 137/63 Blood Pressure Mean 87 Pulse Oximetry 97 Oxygen Delivery Method Room Air Sepsis Recent Fever Within 48 Hours No Sepsis New/Unexplained Change in Mental Status No Sepsis Action Taken by Nursing No Action Required Laboratory Data 08/16/22 18:05 08/16/22 18:05 Lab Results 08/16/22 08/16/22 08/16/22 Range/Units 18:05 18:05 18:05 WBC 62.43 H* (4.8-10.8) K/ul RBC 2.69 L (4.20-5.40) M/uL Hgb 6.6 L* (12.0-16.0) g/dl Hct 23.9 L (37.0-47.0) % MCV 88.8 (80.0-100.0) fL MCH 24.5 L (25.0-34.0) pg MCHC 27.6 L (32.0-36.0) g/dL RDW Std Deviation 45.9 (36.4-46.3) fL RDW Coeff of Riley 14.5 (11.5-14.5) % Plt Count 92 L (130-400) K/uL MPV 9.4 (9.4-12.4) fL Immature Gran % (Auto) 0.1 % Neut % (Auto) 5.2 % Lymph % (Auto) 92.0 % Pacific % (Auto) 2.5 % Eos % (Auto) 0.1 % Baso % (Auto) 0.1 % Neut # (Auto) 3.24 (1.40-6.50) K/uL Lymph # (Auto) 57.44 H (1.2-3.4) K/uL Pacific # (Auto) 1.58 H (0.11-0.59) K/uL Eos # (Auto) 0.05 (0-0.50) K/uL Baso # (Auto) 0.05 (0-0.2) K/uL Immature Gran # (Auto) 0.07 (0.01-0.20) K/uL Smudge Cells Present Polychromasia 1+ Anisocytosis Present PT 10.5 (9.0-12.0) Seconds INR 1.0 (0.9-1.1) APTT 24.2 (21.0-31.0) Seconds PTT Ratio 0.9 Sodium 140 (136-145) mmol/L Potassium 4.8 (3.5-5.1) mmol/L Chloride 110 H (98-107) mmol/L Carbon Dioxide 26 (21-32) mmol/L Anion Gap 4 (3-11) BUN 41 H (6-23) mg/dl Creatinine 1.03 (0.6-1.2) mg/dl Est Cr Clr Drug Dosing Not Reportable Est GFR ( Amer) 57.8 ml/min Est GFR (Non-Af Amer) 49.9 ml/min BUN/Creatinine Ratio 39.8 H (10-20) Glucose 95 (70-99(Fasting)) mg/dl Calcium 8.3 L (8.5-10.1) mg/dl Magnesium 2.1 (1.7-2.4) mg/dl Total Bilirubin 0.4 (0.2-1.0) mg/dl AST 20 (13-39) U/L ALT 18 (7-52) U/L Alkaline Phosphatase 59 (34-104) U/L Troponin I High Sens 8.3 (0-14) pg/ml Total Protein 6.6 (6.0-8.3) gm/dl Albumin 3.7 (3.4-5.0) gm/dl Globulin 2.9 (2.5-4.0) gm/dl Albumin/Globulin Ratio 1.3 (0.9-2) Crossmatch 08/16/22 Range/Units 18:05 WBC (4.8-10.8) K/ul RBC (4.20-5.40) M/uL Hgb (12.0-16.0) g/dl Hct (37.0-47.0) % MCV (80.0-100.0) fL MCH (25.0-34.0) pg MCHC (32.0-36.0) g/dL RDW Std Deviation (36.4-46.3) fL RDW Coeff of Riley (11.5-14.5) % Plt Count (130-400) K/uL MPV (9.4-12.4) fL Immature Gran % (Auto) % Neut % (Auto) % Lymph % (Auto) % Pacific % (Auto) % Eos % (Auto) % Baso % (Auto) % Neut # (Auto) (1.40-6.50) K/uL Lymph # (Auto) (1.2-3.4) K/uL Pacific # (Auto) (0.11-0.59) K/uL Eos # (Auto) (0-0.50) K/uL Baso # (Auto) (0-0.2) K/uL Immature Gran # (Auto) (0.01-0.20) K/uL Smudge Cells Polychromasia Anisocytosis PT (9.0-12.0) Seconds INR (0.9-1.1) APTT (21.0-31.0) Seconds PTT Ratio Sodium (136-145) mmol/L Potassium (3.5-5.1) mmol/L Chloride (98-107) mmol/L Carbon Dioxide (21-32) mmol/L Anion Gap (3-11) BUN (6-23) mg/dl Creatinine (0.6-1.2) mg/dl Est Cr Clr Drug Dosing Est GFR ( Amer) ml/min Est GFR (Non-Af Amer) ml/min BUN/Creatinine Ratio (10-20) Glucose (70-99(Fasting)) mg/dl Calcium (8.5-10.1) mg/dl Magnesium (1.7-2.4) mg/dl Total Bilirubin (0.2-1.0) mg/dl AST (13-39) U/L ALT (7-52) U/L Alkaline Phosphatase (34-104) U/L Troponin I High Sens (0-14) pg/ml Total Protein (6.0-8.3) gm/dl Albumin (3.4-5.0) gm/dl Globulin (2.5-4.0) gm/dl Albumin/Globulin Ratio (0.9-2) Crossmatch See Detail Imaging Data Radiologist's Impression: Chest X-Ray 08/16/22 14:40 XR chest 2V PA/lateral HISTORY: 86 years-old Female SOB acute shortness of breath COMPARISON: Chest CT 02/09/2021 TECHNIQUE: PA and lateral views of the chest FINDINGS: Cardiac silhouette is enlarged. Atherosclerosis of the aorta. No pneumothorax, pleural effusion, airspace consolidation or overt pulmonary edema. Degenerative changes of the spine and left shoulder. Reverse right shoulder total joint arthroplasty. Bilateral breast calcifications are again noted. Chronic posterior left sixth rib fracture. IMPRESSION: No acute process. ACT 112: Negative or not required by law. The above report was generated using voice recognition software. It may contain grammatical, syntax or spelling errors. Electronically signed by: Bobby Petit M.D. 08/16/2022 3:16 PM Discharge Plan Visit Data Chief Complaint: Illness Stated Complaint: BLOOD TRASFUSION, DEF BY DOC ED Provider: Shreyas Price Discharge Problem: Anemia Patient Disposition: Being Evaluated by Hospitalist Forms Stand Alone Forms: My [facility] Prescriptions Prescriptions: No Action acetaminophen 325 mg capsule 325 mg PO Q6H PRN (Reason: Pain) citalopram 10 mg Tablet 10 mg PO QAM lorazepam 0.5 mg Tablet 0.5 mg PO HS PRN (Reason: Sleep, anxiety) Rx Instructions: Takes at night for sleep, may take during the daylight hours for anxiety furosemide 20 mg Tablet 20 mg PO QAM PRN (Reason: Fluid Retention) Rx Instructions: give 1 tab by mouth in the morning related to EDEMA calcium citrate-vitamin D3 250 mg calcium- 200 unit Tablet 3 tab PO QAM multivitamin Tablet 1 tab PO QAM prednisone 5 mg tablet 5 mg PO QAM potassium chloride [Klor-Con M10] 10 mEq tablet,ER particles/crystals 10 meq PO QAM PRN (Reason: WHEN TAKES LASIX.) famotidine 20 mg Tablet 20 mg PO HS cyanocobalamin (vitamin B-12) 1,000 mcg/mL Solution 1,000 mcg IM MONTHLY Rx Instructions: PT STATES "WHEN EVER I REMEMBER OR WHEN I THINK I NEED IT". aspirin 81 mg Tablet,Delayed Release (Dr/Ec) 81 mg PO QAM Qty: 30 0RF Advanced Probiotic 625 mg (10 billion cell) Capsule 2 cap PO DAILY Qty: 60 0RF ciprofloxacin HCl [Cipro] 500 mg tablet 500 mg PO BID Qty: 60 0RF diclofenac sodium 1 % gel 2 g TOPICAL QID PRN (Reason: Pain) Rx Instructions: apply to right hand for pain naproxen sodium [Aleve] 220 mg Tablet 220 mg PO BID Referrals Referrals: Willme Estrada MD [Primary Care Provider] -
[2022-08-16 18:59] LABS: Partial Thromboplastin Ratio 0.9; Partial Thromboplastin Time 24.2 Seconds (21.0-31.0); Prothrombin Time 10.5 Seconds (9.0-12.0)
[2022-08-16 19:20] LABS: Anisocytosis Present; Basophils # (auto) 0.05 K/uL (0-0.2); Basophils % (auto) 0.1 %; Eosinophils # (auto) 0.05 K/uL (0-0.50); Eosinophils % (auto) 0.1 %; Immature Granulocytes # (auto) 0.07 K/uL (0.01-0.20); Immature Granulocytes % (auto) 0.1 %; Lymphocytes # (auto) 57.44 K/uL (1.2-3.4); Monocytes # (auto) 1.58 K/uL (0.11-0.59); Monocytes % (auto) 2.5 %; Neutrophils # (auto) 3.24 K/uL (1.40-6.50); Neutrophils % (auto) 5.2 %; Polychromasia 1+; Smudge Cells Present
[2022-08-16] MEDS ORDERED: LORazepam 0.5 MG TAB PO STA (20:22)
--- NOTE | 2022-08-16 20:23 | History & Physical Report ---
Date of Service August 16, 2022 Assessment & Plan (1) Symptomatic anemia: Plan: Acute on chronic anemia Hemoglobin drop from baseline hx CLL status post radiation currently on ibrutinib Slow GI bleed from hemorrhoids/diverticulosis possibly contributory chronic thrombocytopenia secondary to CLL mild aortic regurgitation anxiety/mood disorder, patient admits to increased anxiety from being in the hospital right now seronegative polyarthritis/osteoarthritis on chronic prednisone Rx GMF Transfuse PRBC to maintain hemoglobin greater than 8 (patient baseline) Patient to ponder over GI opinion regarding occult GI bleed. Anxiolytic as needed DVT prophylaxis. SCDs Re: Thrombocytopenia DNR Text document was generated using SpeechVive voice recognition software. It may contain grammatical or spelling errors. Kindly contact undersigned for clarification of any documentation item in question. History of Present Illness Chief Complaint: Abnormal blood work, anemia Primary Care Provider: Willem Estrada MD History obtained from patient, caregiver, and records. History somewhat limited from patient secondary to hearing impairment. 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 Pseudomonas on CS. Patient completed antibiotic Rx. Patient had routine outpatient blood work done yesterday. Hemoglobin noted to be 6.8. Patient denies chest pain. Usual SOB on exertion. Denies abdominal pain. Episodic hematochezia from hemorrhoids as per patient. Patient directed to ER by oncologist for blood transfusion. FOBT done at the ER was positive. 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 Allergies Allergy/AdvReac Type Severity Reaction Status Date / Time Cephalosporins Allergy Unknown UNKNOWN Verified 01/14/22 17:36 mirabegron Allergy Unknown Unknown Verified 01/14/22 17:36 nitrofurantoin Allergy Unknown UNKNOWN Verified 01/14/22 17:36 oxaprozin Allergy Unknown UNKNOWN Verified 01/14/22 17:36 oxybutynin Allergy Unknown UNKNOWN Verified 01/14/22 17:36 Home Medications Medication Instructions Recorded Confirmed Type calcium citrate 250 mg 1 tab PO QAM 05/18/18 08/16/22 History calcium-vitamin D3 5 mcg (200 unit) tablet citalopram 10 mg tablet 10 mg PO QAM 05/18/18 08/16/22 History furosemide 20 mg tablet 20 mg PO DAILY PRN Fluid Retention 05/18/18 08/16/22 History lorazepam 0.5 mg tablet 0.5 mg PO HS 05/18/18 08/16/22 History multivitamin 1 tab PO QAM 11/10/18 08/16/22 History potassium chloride 10 mEq 10 meq PO QAM PRN WHEN TAKES LASIX. 11/10/18 08/16/22 History tablet,extended release(part/cryst) (Klor-Con M) prednisone 5 mg tablet 5 mg PO UD 11/10/18 08/16/22 History diclofenac sodium 1 % topical gel 2 g topical QID PRN Pain 02/20/21 08/16/22 History naproxen sodium 220 mg tablet 220 mg PO AMPM 12/04/21 08/16/22 History (Aleve) cyanocobalamin (vitamin B-12) 1,000 mcg IM MONTHLY 01/14/22 08/16/22 History 1,000 mcg/mL injection solution famotidine 20 mg tablet 20 mg PO DAILY 01/14/22 08/16/22 History ammonium lactate 12 % topical cream 1 applic topical . NEEDED PRN 08/16/22 08/16/22 History dry skin,arms and legs ibrutinib 140 mg tablet 280 mg PO QAM 08/16/22 08/16/22 History prednisone 10 mg tablet 10 mg PO UD 08/16/22 08/16/22 History Past Med/Surg History Medical History Chronic lymphocytic leukemia Closed rib fracture Closed tibia fracture Diverticulosis of colon Dyslipidemia Fracture of spine REZA (generalized anxiety disorder) GERD (gastroesophageal reflux disease) History of squamous cell carcinoma Hypogammaglobulinemia, acquired Osteoarthritis Osteoporosis Stress reaction Surgical History History of orthopedic surgery Status post hysterectomy Family History Other Cancer Diabetes Heart disease Social History Smoking Status: Never smoker Second Hand Exposure: No; Hx Alcohol Use: No Hx Substance Use: No Preferred Language: Romanian Communication Ability: Effective Communication Ability Comment: uses tablet for communication 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 Beliefs That Will Affect Care: None marital status: / Current Living Situation: Family Current Living Situation Comment: personal care givers Other Information That Helps Us Care for You: No Feels Safe at Home: Yes Safety Concerns: Feels Safe At This Time Assistive Devices: Denture - Upper, Glasses, Hearing Aid - Bilateral, Lift Chair, Raised Toilet Seat, Walker and Wheelchair Review of Systems Review of Systems: Could not be reliably obtained secondary to hearing impairment Physical Exam Physical Exam: GENERAL: uncomfortable, anxious, underweight, hard of hearing, no respiratory distress SKIN: Pallor, warm HEENT: Bespectacled, pale palpebral conjunctivae, no ptosis, dry buccal mucosa NECK : Supple, no tenderness CHEST : CTA, no tenderness HEART : RRR, no obvious murmurs ABDOMEN: no distention, nontender EXTREMITIES : Minimal LE swelling, no LE tenderness, right shoulder tenderness, no other conspicuous deformities noted NEUROLOGIC : Coherent, no facial asymmetry, hard of hearing, no other gross focality Results & Data Results & Data ([facility]) Vital Signs (Past 12 Hours) Vital Signs Temp Pulse Resp BP Pulse Ox O2 Del Method 08/16/22 14:35 37.4 C 102 H 20 137/63 97 Room Air Laboratory Results Laboratory Results WBC 62.43 K/ul (4.8-10.8) H* 08/16/22 18:05 RBC 2.69 M/uL (4.20-5.40) L 08/16/22 18:05 Hgb 6.6 g/dl (12.0-16.0) L* 08/16/22 18:05 Hct 23.9 % (37.0-47.0) L 08/16/22 18:05 MCV 88.8 fL (80.0-100.0) 08/16/22 18:05 MCH 24.5 pg (25.0-34.0) L 08/16/22 18:05 MCHC 27.6 g/dL (32.0-36.0) L 08/16/22 18:05 RDW Std Deviation 45.9 fL (36.4-46.3) 08/16/22 18:05 RDW Coeff of Riley 14.5 % (11.5-14.5) 08/16/22 18:05 Plt Count 92 K/uL (130-400) L 08/16/22 18:05 MPV 9.4 fL (9.4-12.4) 08/16/22 18:05 Immature Gran % (Auto) 0.1 % 08/16/22 18:05 Neut % (Auto) 5.2 % 08/16/22 18:05 Lymph % (Auto) 92.0 % 08/16/22 18:05 [place] % (Auto) 2.5 % 08/16/22 18:05 Eos % (Auto) 0.1 % 08/16/22 18:05 Baso % (Auto) 0.1 % 08/16/22 18:05 Neut # (Auto) 3.24 K/uL (1.40-6.50) 08/16/22 18:05 Lymph # (Auto) 57.44 K/uL (1.2-3.4) H 08/16/22 18:05 [place] # (Auto) 1.58 K/uL (0.11-0.59) H 08/16/22 18:05 Eos # (Auto) 0.05 K/uL (0-0.50) 08/16/22 18:05 Baso # (Auto) 0.05 K/uL (0-0.2) 08/16/22 18:05 Immature Gran # (Auto) 0.07 K/uL (0.01-0.20) 08/16/22 18:05 Smudge Cells Present 08/16/22 18:05 Polychromasia 1+ 08/16/22 18:05 Anisocytosis Present 08/16/22 18:05 PT 10.5 Seconds (9.0-12.0) 08/16/22 18:05 INR 1.0 (0.9-1.1) 08/16/22 18:05 APTT 24.2 Seconds (21.0-31.0) 08/16/22 18:05 PTT Ratio 0.9 08/16/22 18:05 Sodium 140 mmol/L (136-145) 08/16/22 18:05 Potassium 4.8 mmol/L (3.5-5.1) 08/16/22 18:05 Chloride 110 mmol/L (98-107) H 08/16/22 18:05 Carbon Dioxide 26 mmol/L (21-32) 08/16/22 18:05 Anion Gap 4 (3-11) 08/16/22 18:05 BUN 41 mg/dl (6-23) H 08/16/22 18:05 Creatinine 1.03 mg/dl (0.6-1.2) 08/16/22 18:05 Est Cr Clr Drug Dosing Not Reportable 08/16/22 18:05 Est GFR ( Amer) 57.8 ml/min 08/16/22 18:05 Est GFR (Non-Af Amer) 49.9 ml/min 08/16/22 18:05 BUN/Creatinine Ratio 39.8 (10-20) H 08/16/22 18:05 Glucose 95 mg/dl (70-99(Fasting)) 08/16/22 18:05 Calcium 8.3 mg/dl (8.5-10.1) L 08/16/22 18:05 Magnesium 2.1 mg/dl (1.7-2.4) 08/16/22 18:05 Total Bilirubin 0.4 mg/dl (0.2-1.0) 08/16/22 18:05 AST 20 U/L (13-39) 08/16/22 18:05 ALT 18 U/L (7-52) 08/16/22 18:05 Alkaline Phosphatase 59 U/L (34-104) 08/16/22 18:05 Troponin I High Sens 8.3 pg/ml (0-14) 08/16/22 18:05 Total Protein 6.6 gm/dl (6.0-8.3) 08/16/22 18:05 Albumin 3.7 gm/dl (3.4-5.0) 08/16/22 18:05 Globulin 2.9 gm/dl (2.5-4.0) 08/16/22 18:05 Albumin/Globulin Ratio 1.3 (0.9-2) 08/16/22 18:05 Procalcitonin 0.06 ng/ml (0-0.5) 08/16/22 18:06 Blood Type AB Positive 08/16/22 18:05 Antibody Screen NEGATIVE 08/16/22 18:05 Crossmatch See Detail 08/16/22 18:05 Impressions Chest X-Ray 08/16/22 14:40 XR chest 2V PA/lateral HISTORY: 86 years-old Female SOB acute shortness of breath COMPARISON: Chest CT 02/09/2021 TECHNIQUE: PA and lateral views of the chest FINDINGS: Cardiac silhouette is enlarged. Atherosclerosis of the aorta. No pneumothorax, pleural effusion, airspace consolidation or overt pulmonary edema. Degenerative changes of the spine and left shoulder. Reverse right shoulder total joint arthroplasty. Bilateral breast calcifications are again noted. Chronic posterior left sixth rib fracture. IMPRESSION: No acute process. ACT 112: Negative or not required by law. The above report was generated using voice recognition software. It may contain grammatical, syntax or spelling errors. Electronically signed by: Bobby Petit M.D. 08/16/2022 3:16 PM Diagnostic Findings EKG as per my interpretation :Rate 95, NSR, LAD, LAFB, septal infarct, T wave abnormalities septal leads,
[2022-08-17] MEDS ORDERED: DICLOFENAC SOD 1% GEL 100 GM TUBE EXT PRN (00:09)
[2022-08-17] MEDS ORDERED: traMADol HCL 50 MG TABLET PO PRN (00:09)
[2022-08-17] MEDS ORDERED: LORazepam 0.5 MG TAB PO PRN (00:09)
[2022-08-17] MEDS ORDERED: ACETAMINOPHEN 325 MG TAB PO PRN (00:09)
[2022-08-17] MEDS ORDERED: PROMETHAZINE HCL 6.25 MG in SODIUM CHLORIDE 0.9% 50 ML IV PRN (00:09)
[2022-08-17] MEDS: FAMOTIDINE 20 MG TAB PO SCH (08:52)
[2022-08-17] MEDS: predniSONE 5 MG TAB PO SCH (08:52)
[2022-08-17] MEDS: MULTIVITAMIN TAB PO SCH (08:52)
[2022-08-17] MEDS: IBRUTINIB PO SCH (08:53)
[2022-08-17] MEDS: CITALOPRAM 20 MG TAB PO SCH (09:04)
[2022-08-17 10:06] LABS: Hematocrit (blood only) 30.8 % (37.0-47.0); Hemoglobin 9.5 g/dl (12.0-16.0); Mean Corpuscular Hemoglobin 26.5 pg (25.0-34.0); Mean Corpuscular Hgb Conc 30.8 g/dL (32.0-36.0); Mean Corpuscular Volume 85.8 fL (80.0-100.0); Mean Platelet Volume 11.6 fL (9.4-12.4); Platelet Count 114 K/uL (130-400); RDW Coefficient of Variation 14.3 % (11.5-14.5); RDW Standard Deviation 43.6 fL (36.4-46.3); Red Blood Count 3.59 M/uL (4.20-5.40); White Blood Count 91.03 K/ul (4.8-10.8)
[2022-08-17 10:20] LABS: BUN Creatinine Ratio 37.6 (10-20); Calcium 8.8 mg/dl (8.5-10.1); Creatinine Clr Calc Pharmacy 38.9 ml/min; Est GFR (African American) 72.9 ml/min; Est GFR (Non-African American) 62.9 ml/min; Potassium 5.1 mmol/L (3.5-5.1)
[2022-08-17 11:37] LABS: Basophils # (auto) 0.17 K/uL (0-0.2); Basophils % (auto) 0.2 %; Eosinophils # (auto) 0.14 K/uL (0-0.50); Eosinophils % (auto) 0.2 %; Immature Granulocytes # (auto) 0.11 K/uL (0.01-0.20); Immature Granulocytes % (auto) 0.1 %; Lymphocytes # (auto) 84.31 K/uL (1.2-3.4); Lymphocytes % (auto) 92.6 %; Neutrophils % (auto) 2.9 %
--- NOTE | 2022-08-17 18:37 | Gastrointestinal Consultation ---
Date of Consultation August 18, 2022 Assessment & Plan (1) Anemia: No symptoms of bleeding or of anemia, given underlying marrow issues likely contributory Does not desire GI workup , nor does history support this Can follow up with DR. Caldera and f/u with GI as needed History of Present Illness Reason for Consultation: Anemia Attending Physician: Boni Foster MD History of Present Illness [facility], [id number] History & Physical Report Signed Patient:ABIGAIL ADAMS Admit Date:08/16/22 MR#:[id number] We are asked to see Ms. Abigail Adams for evaluation of anemia. She has a hx of CLL on ibrutinib, intermittent IVIG, and baseline anemia of 8, also has chronic thrombocytopenia. She presented to ER at request of her oncologist after her Hb was found to 6.8, she denies cp, dyspnea, or abdominal pain. Responed appropriately with transfusion, no signs of bleeding Occassionally has intermittent BRBPR on toilet paper, but none recently. Feels well and is walking the hallways Allergies Allergy/AdvReac Type Severity Reaction Status Date / Time Cephalosporins Allergy Unknown UNKNOWN Verified 01/14/22 17:36 mirabegron Allergy Unknown Unknown Verified 01/14/22 17:36 nitrofurantoin Allergy Unknown UNKNOWN Verified 01/14/22 17:36 oxaprozin Allergy Unknown UNKNOWN Verified 01/14/22 17:36 oxybutynin Allergy Unknown UNKNOWN Verified 01/14/22 17:36 Home Medications Medication Instructions Recorded Confirmed Type calcium citrate 250 mg 1 tab PO QAM 05/18/18 08/16/22 History calcium-vitamin D3 5 mcg (200 unit) tablet citalopram 10 mg tablet 10 mg PO QAM 05/18/18 08/16/22 History furosemide 20 mg tablet 20 mg PO DAILY PRN Fluid Retention 05/18/18 08/16/22 History lorazepam 0.5 mg tablet 0.5 mg PO HS 05/18/18 08/16/22 History multivitamin 1 tab PO QAM 11/10/18 08/16/22 History potassium chloride 10 mEq 10 meq PO QAM PRN WHEN TAKES LASIX. 11/10/18 08/16/22 History tablet,extended release(part/cryst) (Klor-Con M) prednisone 5 mg tablet 5 mg PO UD 11/10/18 08/16/22 History diclofenac sodium 1 % topical gel 2 g topical QID PRN Pain 02/20/21 08/16/22 History naproxen sodium 220 mg tablet 220 mg PO AMPM 12/04/21 08/16/22 History (Aleve) cyanocobalamin (vitamin B-12) 1,000 mcg IM MONTHLY 01/14/22 08/16/22 History 1,000 mcg/mL injection solution famotidine 20 mg tablet 20 mg PO DAILY 01/14/22 08/16/22 History ammonium lactate 12 % topical cream 1 applic topical . NEEDED PRN 08/16/22 08/16/22 History dry skin,arms and legs ibrutinib 140 mg tablet 280 mg PO QAM 08/16/22 08/16/22 History prednisone 10 mg tablet 10 mg PO UD 08/16/22 08/16/22 History Patient History Medical History Chronic lymphocytic leukemia Closed rib fracture Closed tibia fracture Diverticulosis of colon Dyslipidemia Fracture of spine REZA (generalized anxiety disorder) GERD (gastroesophageal reflux disease) History of squamous cell carcinoma Hypogammaglobulinemia, acquired Osteoarthritis Osteoporosis Stress reaction Surgical History History of orthopedic surgery Status post hysterectomy Family History Other Cancer Diabetes Heart disease Social History Smoking Status: Never smoker Second Hand Exposure: No; Hx Alcohol Use: No Hx Substance Use: No Preferred Language: [place] Communication Ability: Effective Communication Ability Comment: uses tablet for communication 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 Beliefs That Will Affect Care: None marital status: / Current Living Situation: Family Current Living Situation Comment: personal care givers Other Information That Helps Us Care for You: No Feels Safe at Home: Yes Safety Concerns: Feels Safe At This Time Assistive Devices: Denture - Upper, Glasses, Hearing Aid - Bilateral, Lift Chair, Raised Toilet Seat, Walker and Wheelchair Review of Systems Review of Systems: 10 system review negative Results & Data ([facility]) Vital Signs (Past 12 Hours) Vital Signs Temp Pulse Pulse Resp BP BP Pulse Ox 08/17/22 14:21 101 H 08/17/22 16:00 37.0 C 91 H 18 143/75 H 95 08/17/22 15:49 65 08/17/22 13:19 08/17/22 11:28 36.6 C 79 16 152/71 H 95 08/17/22 07:09 36.6 C 78 18 151/79 H 95 08/17/22 07:38 36.4 C L 75 18 168/85 H 97 O2 Del Method 08/17/22 14:21 08/17/22 16:00 Room Air 08/17/22 15:49 08/17/22 13:19 Room Air 08/17/22 11:28 Room Air 08/17/22 07:09 08/17/22 07:38 Room Air
--- NOTE | 2022-08-17 18:45 | Hospitalist Progress Note ---
Date of Service August 17, 2022 Assessment & Plan (1) Symptomatic anemia: Plan: She was sent to the ER for low hgb Hemoglobin on admission 6.6 and positive guaiac as per ER provider status post 2 unit PRBC Hemoglobin today 9.5 today Gastro consult Continue monitor CBC REZA (generalized anxiety disorder): Continue SSRI, ativan PRN Hx CLL Status post radiation currently on ibrutinib WBC 91K chronic thrombocytopenia secondary to CLL Plt 114 today No sign of active bleeding DVT prophylaxis. SCDs Re: Thrombocytopenia/low hgb and positive guaiac Code status DNR Admission and Anticipated Discharge Date Admission Date: August 16, 2022 Subjective Pt was seen and examined for follow up with anemia Sitting in bed with no acute discharge watching TV Due to her decrease hearing function, she used a tablet to communicate Pt said that she feels fine She said that her stool is dark Denies any chest pain, palpitation, dizziness and SOB Review of Systems Review of Systems: All systems reviewed & are unremarkable except as noted in Subjective Physical Exam Physical Exam: General- No acute distress Head- atraumatic Eyes- PERRL, EOMI, ENT- +decrease hearing function Neck- supple, no JVD Lungs- clear to auscultation Heart- regular rhythm; no murmur Abdomen- normal bowel sounds, soft, nontender Extremities- no calf tenderness Neuro- alert, oriented x 3; PERRL, EOMI; no facial palsy; no dysarthria Skin- warm & dry Results & Data Results & Data ([facility]) Vital Signs (Past 12 Hours) Vital Signs Temp Pulse Pulse Resp BP BP Pulse Ox 08/17/22 14:21 101 H 08/17/22 16:00 37.0 C 91 H 18 143/75 H 95 08/17/22 15:49 65 08/17/22 13:19 08/17/22 11:28 36.6 C 79 16 152/71 H 95 08/17/22 07:09 36.6 C 78 18 151/79 H 95 08/17/22 07:38 36.4 C L 75 18 168/85 H 97 O2 Del Method 08/17/22 14:21 08/17/22 16:00 Room Air 08/17/22 15:49 08/17/22 13:19 Room Air 08/17/22 11:28 Room Air 08/17/22 07:09 08/17/22 07:38 Room Air
--- NOTE | 2022-08-17 22:25 | Electrocardiogram Report ---
Test Reason : Blood Pressure : / mmHG Vent. Rate : 093 BPM Atrial Rate : 093 BPM P-R Int : 148 ms QRS Dur : 072 ms QT Int : 340 ms P-R-T Axes : 051 -29 055 degrees QTc Int : 422 ms Poor data quality, interpretation may be adversely affected Normal sinus rhythm Possible Left atrial enlargement Septal infarct (cited on or before 14-JAN-2022) Abnormal ECG When compared with ECG of 14-JAN-2022 15:29, T wave inversion now evident in Anterior leads Confirmed by Haroldo Lunsford ([id number]) on 08/17/2022 10:25:13 PM Referred By: Darlene Vasquez Confirmed By:Haroldo Lunsford
[2022-08-18 08:13] LABS: Hematocrit (blood only) 27.7 % (37.0-47.0); Hemoglobin 8.2 g/dl (12.0-16.0); Mean Corpuscular Hemoglobin 25.8 pg (25.0-34.0); Mean Corpuscular Hgb Conc 29.6 g/dL (32.0-36.0); Mean Corpuscular Volume 87.1 fL (80.0-100.0); Mean Platelet Volume 10.3 fL (9.4-12.4); Platelet Count 83 K/uL (130-400); RDW Coefficient of Variation 14.3 % (11.5-14.5); RDW Standard Deviation 44.3 fL (36.4-46.3); Red Blood Count 3.18 M/uL (4.20-5.40); White Blood Count 73.32 K/ul (4.8-10.8)
[2022-08-18] MEDS: CITALOPRAM 20 MG TAB PO SCH (09:27)
[2022-08-18] MEDS: FAMOTIDINE 20 MG TAB PO SCH (09:28)
[2022-08-18] MEDS: MULTIVITAMIN TAB PO SCH (09:28)
[2022-08-18] MEDS: predniSONE 5 MG TAB PO SCH (09:29)
[2022-08-18] MEDS: IBRUTINIB PO SCH (09:30)
[2022-08-18 15:17] LABS: Hemoglobin 9.9 g/dl (12.0-16.0)
--- NOTE | 2022-08-18 16:30 | Discharge Summary ---
Date of Service August 18, 2022 Admission HPI Per Admitting Provider History obtained from patient, caregiver, and records. History somewhat limited from patient secondary to hearing impairment. 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 Pseudomonas on CS. Patient completed antibiotic Rx. Patient had routine outpatient blood work done yesterday. Hemoglobin noted to be 6.8. Patient denies chest pain. Usual SOB on exertion. Denies abdominal pain. Episodic hematochezia from hemorrhoids as per patient. Patient directed to ER by oncologist for blood transfusion. FOBT done at the ER was positive. 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 Exam Per Admitting Provider GENERAL: uncomfortable, anxious, underweight, hard of hearing, no respiratory distress SKIN: Pallor, warm HEENT: Bespectacled, pale palpebral conjunctivae, no ptosis, dry buccal mucosa NECK : Supple, no tenderness CHEST : CTA, no tenderness HEART : RRR, no obvious murmurs ABDOMEN: no distention, nontender EXTREMITIES : Minimal LE swelling, no LE tenderness, right shoulder tenderness, no other conspicuous deformities noted NEUROLOGIC : Coherent, no facial asymmetry, hard of hearing, no other gross focality Principal Diagnosis Symptomatic anemia: History CLL chronic thrombocytopenia REZA (generalized anxiety disorder) Discharge Exam General- No acute distress Head- atraumatic Eyes- PERRL, EOMI, ENT- +decrease hearing function Neck- supple, no JVD Lungs- clear to auscultation Heart- regular rhythm; no murmur Abdomen- normal bowel sounds, soft, nontender Extremities- no calf tenderness Neuro- alert, oriented x 3; PERRL, EOMI; no facial palsy; no dysarthria Skin- warm & dry Discharge Data Allergies Allergy/AdvReac Type Severity Reaction Status Date / Time Cephalosporins Allergy Unknown UNKNOWN Verified 01/14/22 17:36 mirabegron Allergy Unknown Unknown Verified 01/14/22 17:36 nitrofurantoin Allergy Unknown UNKNOWN Verified 01/14/22 17:36 oxaprozin Allergy Unknown UNKNOWN Verified 01/14/22 17:36 oxybutynin Allergy Unknown UNKNOWN Verified 01/14/22 17:36 Consultations 08/17/22 12:34 Consult Gastroenterology Routine Ordered Studies Laboratory Results WBC 73.32 K/ul (4.8-10.8) H* 08/18/22 07:13 RBC 3.18 M/uL (4.20-5.40) L 08/18/22 07:13 Hgb 9.9 g/dl (12.0-16.0) L 08/18/22 14:50 Hct 33.0 % (37.0-47.0) L 08/18/22 14:50 MCV 87.1 fL (80.0-100.0) 08/18/22 07:13 MCH 25.8 pg (25.0-34.0) 08/18/22 07:13 MCHC 29.6 g/dL (32.0-36.0) L 08/18/22 07:13 RDW Std Deviation 44.3 fL (36.4-46.3) 08/18/22 07:13 RDW Coeff of Riley 14.3 % (11.5-14.5) 08/18/22 07:13 Plt Count 83 K/uL (130-400) L 08/18/22 07:13 MPV 10.3 fL (9.4-12.4) 08/18/22 07:13 Immature Gran % (Auto) 0.1 % 08/17/22 09:39 Neut % (Auto) 2.9 % 08/17/22 09:39 Lymph % (Auto) 92.6 % 08/17/22 09:39 Converse % (Auto) 4.0 % 08/17/22 09:39 Eos % (Auto) 0.2 % 08/17/22 09:39 Baso % (Auto) 0.2 % 08/17/22 09:39 Neut # (Auto) 2.70 K/uL (1.40-6.50) 08/17/22 09:39 Lymph # (Auto) 84.31 K/uL (1.2-3.4) H 08/17/22 09:39 Converse # (Auto) 3.60 K/uL (0.11-0.59) H 08/17/22 09:39 Eos # (Auto) 0.14 K/uL (0-0.50) 08/17/22 09:39 Baso # (Auto) 0.17 K/uL (0-0.2) 08/17/22 09:39 Immature Gran # (Auto) 0.11 K/uL (0.01-0.20) 08/17/22 09:39 Smudge Cells Present 08/16/22 18:05 Polychromasia 1+ 08/16/22 18:05 Anisocytosis Present 08/16/22 18:05 PT 10.5 Seconds (9.0-12.0) 08/16/22 18:05 INR 1.0 (0.9-1.1) 08/16/22 18:05 APTT 24.2 Seconds (21.0-31.0) 08/16/22 18:05 PTT Ratio 0.9 08/16/22 18:05 Sodium 139 mmol/L (136-145) 08/17/22 09:39 Potassium 5.1 mmol/L (3.5-5.1) 08/17/22 09:39 Chloride 109 mmol/L (98-107) H 08/17/22 09:39 Carbon Dioxide 27 mmol/L (21-32) 08/17/22 09:39 Anion Gap 3 (3-11) 08/17/22 09:39 BUN 32 mg/dl (6-23) H 08/17/22 09:39 Creatinine 0.85 mg/dl (0.6-1.2) 08/17/22 09:39 Est Cr Clr Drug Dosing 38.9 ml/min 08/17/22 09:39 Est GFR ( Amer) 72.9 ml/min 08/17/22 09:39 Est GFR (Non-Af Amer) 62.9 ml/min 08/17/22 09:39 BUN/Creatinine Ratio 37.6 (10-20) H 08/17/22 09:39 Glucose 93 mg/dl (70-99(Fasting)) 08/17/22 09:39 Calcium 8.8 mg/dl (8.5-10.1) 08/17/22 09:39 Magnesium 2.1 mg/dl (1.7-2.4) 08/16/22 18:05 Total Bilirubin 0.4 mg/dl (0.2-1.0) 08/16/22 18:05 AST 20 U/L (13-39) 08/16/22 18:05 ALT 18 U/L (7-52) 08/16/22 18:05 Alkaline Phosphatase 59 U/L (34-104) 08/16/22 18:05 Troponin I High Sens 8.3 pg/ml (0-14) 08/16/22 18:05 Total Protein 6.6 gm/dl (6.0-8.3) 08/16/22 18:05 Albumin 3.7 gm/dl (3.4-5.0) 08/16/22 18:05 Globulin 2.9 gm/dl (2.5-4.0) 08/16/22 18:05 Albumin/Globulin Ratio 1.3 (0.9-2) 08/16/22 18:05 Procalcitonin 0.06 ng/ml (0-0.5) 08/16/22 18:06 Nasal Screen MRSA (PCR) Positive (Negative) A 08/16/22 20:33 SARS-CoV-2, RNA, NAAT NEGATIVE (NEGATIVE) 08/16/22 20:33 Blood Type AB Positive 08/16/22 18:05 Antibody Screen NEGATIVE 08/16/22 18:05 Crossmatch See Detail 08/16/22 18:05 Impressions Chest X-Ray 08/16/22 14:40 XR chest 2V PA/lateral HISTORY: 86 years-old Female SOB acute shortness of breath COMPARISON: Chest CT 02/09/2021 TECHNIQUE: PA and lateral views of the chest FINDINGS: Cardiac silhouette is enlarged. Atherosclerosis of the aorta. No pneumothorax, pleural effusion, airspace consolidation or overt pulmonary edema. Degenerative changes of the spine and left shoulder. Reverse right shoulder total joint arthroplasty. Bilateral breast calcifications are again noted. Chronic posterior left sixth rib fracture. IMPRESSION: No acute process. ACT 112: Negative or not required by law. The above report was generated using voice recognition software. It may contain grammatical, syntax or spelling errors. Electronically signed by: Bobby Petit M.D. 08/16/2022 3:16 PM Hospital Course (1) Symptomatic anemia: She was sent to the ER for low hgb Hemoglobin on admission 6.6 and positive guaiac as per ER provider status post 2 unit PRBC during hospital course Hemoglobin today 8.2 this morning Repeat hgb this afternoon improved to 9.9 Gastro on board Pt Does not desire GI workup Case discussed with son at bedside that also refused GI workup such as Colonoscopy/EGD Case discussed with Oncology dr. Vasquez, where i reviewed the lab result with him Check CBC in 1 week outpatient Follow up with Oncology outpatient REZA (generalized anxiety disorder): Continue SSRI, ativan PRN Hx CLL Status post radiation currently on ibrutinib WBC decreased to 73 Continue monitor CBC outpatient chronic thrombocytopenia secondary to CLL Platelet 83 today No sign of active bleeding +FOBT Pt said that she has hx of hemorrhoid repeat Hgb 9.9 today Gastro on board Pt Does not desire GI workup Case discussed with son at bedside that also refused GI workup such as Colonoscopy/EGD Will d/c naproxen Continue monitor CBC DVT prophylaxis. SCDs Re: Thrombocytopenia/low hgb and positive guaiac Code status DNR Disposition Will discharge home today Total Time Total Time Spent Total Time Spent (In Minutes): 40 minutes Discharge Plan Discharge Items Patient Disposition: Home - Self-Care Reason For Visit: SYMPTOMATIC ANEMIA Discharge Diagnosis: Symptomatic anemia: History CLL chronic thrombocytopenia Activity: Resume your previous activity Non-emergency contact: Primary Care Provider and Oncologist Call non-emergency contact if: you have any medication questions Follow-up/Referrals: Willem Estrada MD [Primary Care Provider] - Diet: Heart Healthy Addtl Attending Provider Instructions: Follow up with your primary care provider within 1 week Follow up with Oncology Dr. Vasquez Check CBC in 1 week to monitor your hemoglobin and your platelet Avoid any NSAID such as Motrin, Naproxen, Ibuprofen, Aleve, Advil due to risk of bleeding Fall precaution Pending Studies at Discharge: No Stand-Alone Forms: My Protal[employer], Smoking Cessation Medications and DC Order Prescriptions: Continued citalopram 10 mg Tablet 10 mg PO QAM lorazepam 0.5 mg Tablet 0.5 mg PO HS furosemide 20 mg Tablet 20 mg PO DAILY PRN (Reason: Fluid Retention) calcium citrate-vitamin D3 250 mg calcium- 200 unit Tablet 1 tab PO QAM multivitamin Tablet 1 tab PO QAM prednisone 5 mg tablet 5 mg PO UD Rx Instructions: on hold until finished with tapering dose potassium chloride [Klor-Con M10] 10 mEq tablet,ER particles/crystals 10 meq PO QAM PRN (Reason: WHEN TAKES LASIX.) famotidine 20 mg Tablet 20 mg PO DAILY cyanocobalamin (vitamin B-12) 1,000 mcg/mL Solution 1,000 mcg IM MONTHLY diclofenac sodium 1 % gel 2 g TOPICAL QID PRN (Reason: Pain) ibrutinib 140 mg Tablet 280 mg PO QAM prednisone 10 mg tablet 10 mg PO UD Rx Instructions: take 2 tablets daily x 4 days then 1 tablet daily x 4 days thenback to 5 mg daily dose ammonium lactate 12 % cream 1 applic TOPICAL . NEEDED PRN (Reason: dry skin,arms and legs) Discontinued naproxen sodium [Aleve] 220 mg Tablet 220 mg PO AMPM Rx Instructions: take with meal Discharge Orders: Discharge Order (Routine); Ordered 08/18/22 Ordered By: Boni Foster Admission Data Admit Date/Time: 08/16/22 20:30 Attending Provider: Boni Foster Admit Provider: Carlos Villa Primary Care Provider: Willem Estrada Other Providers: Kade Kelly Other Interventions: Discharge Summary Assessment (RN) Last Done: 08/18/22 16:10
== END 2022-08-18 17:15 | disposition home or self-care (01) | DRG 841 ==
LOC: ED 13:56 → 2W 20:30

== ENCOUNTER 2023-01-05 12:31 | Inpatient (IN) ==
--- NOTE | 2023-01-05 13:21 | Emergency Department Note ---
Impression & Plan Acute UTI, Chronic lymphocytic leukemia, Hypocalcemia, Acute hyponatremia ED Provider Note NAME: TONY DOYLE AGE: 87 SEX: F : 1935 ARRIVES VIA: Walk-In INFORMANT: Patient, ED PROVIDER(S): Avinash Bryant MD CHIEF COMPLAINT: Weakness, fatigue, chills MEDICAL DECISION MAKING: Patient presents due to concern for weakness and chills and has had some associated confusion. IV was established blood work was obtained along with blood and urine cultures Pro-Jed and lactate. The patient's IV fluids were held at this time as the patient's blood pressure was normal and the patient does have chronic lymphedema. I did discuss antibiotics with the pharmacist he did review prior cultures and the patient has had prior Pseudomonas and at a prior admission the patient tolerated cefepime for 7 days so this was ordered in light of the patient's reported unknown cephalosporin allergy. The patient's blood work does show significant white count of 41 but the patient has a known history of CLL. Hemoglobin with chronic anemia hemoglobin of 10. Chronic thrombocytopenia slightly worse compared to prior currently 54. Kidney function with prerenal azotemia and the patient sodium of 131. Calcium of 8.5. This was ordered for repletion. Troponin to 354 the patient has no chest pains or shortness of breath. The patient's procalcitonin is elevated at 37 and the patient's urinalysis does appear to be infected. MRSA swab pending. Patient's bio fire negative. I did speak the on-call hospitalist service Dr. Bishop. Patient was admitted to the medicine service. I did order some IV fluids and the patient was admitted to the medicine service. Patient's lactate is not elevated. The patient was reassessed and the patient has no evidence of hypotension. Prior /Outside records reviewed: I did review a discharge summary from Dr. Foster from August 2022. Patient is known history of CLL status post radiation currently on ibrutinib, hypogammaglobulinemia with periodic IVIG, anemia, chronic thrombocytopenia aortic regurgitation and diverticulosis. I also did review a wound care visit with Kristel Ibarra from November 2022 the patient is a prior traumatic wound right lower arm for which she was being seen for. Differential diagnosis: Sepsis, UTI, pneumonia, pneumonia, electrolyte abnormalities, cardiac sources, ICH, among others were considered Diagnostics, as interpreted by me: ECG: Normal sinus rhythm, rate of 78, normal intervals normal axis no ST elevations. Q waves anteriorly. No significant change from comparison August 16, 2022 Cardiac monitoring: An order was placed for continuous cardiac monitoring. The monitor shows a rate of 77 with sinus rhythm. Patient was placed on pulse oximetry Medical decision rules: None Imaging studies: See below I informally reviewed the patient's CT of the head shows no obvious ICH. HPI: Patient presents due to concern for weakness fatigue and associated chills. The patient states that this is worsened just in the last 24 hours. Patient denies any falls or trauma there has been concern for some confusion. The patient was uptitrated on her dose of cancer medication through Dr. Vasquez's office and believes that this somewhat coincided with her most recent change where she is taking 100 mg. Patient denies any headache or neck pain no vomiting or diarrhea. Patient is unsure as to whether or not she may have a UTI. Patient states that she currently does not have any wounds. Patient does suffer from chronic lymphedema. Patient denies any cough. PAST MEDICAL HISTORY: See Below PAST SURGICAL HISTORY: See Below SOCIAL HISTORY: See Below HOME MEDICATIONS: See Below ALLERGIES: See Below VITALS: See Below PHYSICAL EXAMINATION: GENERAL: NAD, hard of hearing, non-toxic. Using a tablet at the bedside to help with her presbycusis. EYE EXAM: Normal conjunctiva. PERRL, no anisocoria and EOM's grossly intact w/o pain. NECK: Supple, no nuchal rigidity, no adenopathy, non-tender. No signs of meningismus. FROM of the neck with good chin to chest and neck extension. No stridor. LUNGS: Clear to auscultation. Normal chest wall mechanics. HEART: NSR, no MRG. ABDOMEN: Abdomen soft, non-tender, no masses, no rebound or guarding. BACK: No CVA TTP. SKIN: No rashes and no bruising. UPPER EXTREMITIES: Swelling to bilateral upper extremities, mild warmth to the right upper extremity LOWER EXTREMITIES: Grossly normal, bilateral lower extremity edema NEURO EXAM: A&O x3, cranial nerves II-XII grossly intact, normal speech, moves all 4 extremities. Past Med/Surg History Medical History Anemia Chronic lymphocytic leukemia Closed rib fracture Closed tibia fracture Diverticulosis of colon Dyslipidemia Fracture of spine REZA (generalized anxiety disorder) GERD (gastroesophageal reflux disease) History of squamous cell carcinoma Hypogammaglobulinemia, acquired Osteoarthritis Osteoporosis Stress reaction Symptomatic anemia Surgical History History of orthopedic surgery Status post hysterectomy Family History Other Cancer Diabetes Heart disease Social History Smoking Status: Never smoker Second Hand Exposure: No; Do You Dip or Chew Tobacco: No; Hx Alcohol Use: No Hx Substance Use: No Preferred Language: [place] Islander Communication Ability: Effective Communication Ability Comment: uses tablet for communication Floodplain Manager Required: No Beliefs That Will Affect Care: None marital status: / Current Living Situation: Family Current Living Situation Comment: personal care givers Feels Safe at Home: Yes Assistive Devices: Denture - Upper, Glasses, Hearing Aid - Bilateral, Lift Chair, Raised Toilet Seat, Walker and Wheelchair Allergies Allergies Allergy/AdvReac Type Severity Reaction Status Date / Time Cephalosporins Allergy Unknown UNKNOWN Verified 11/06/22 09:30 [email or web address] Allergy Unknown Unknown Verified 11/06/22 09:30 nitrofurantoin Allergy Unknown UNKNOWN Verified 11/06/22 09:30 oxaprozin Allergy Unknown UNKNOWN Verified 11/06/22 09:30 oxybutynin Allergy Unknown UNKNOWN Verified 11/06/22 09:30 Home Meds Home Medications Medication Instructions Recorded Confirmed calcium citrate 250 mg 1 tab PO QAM 05/18/18 01/05/23 calcium-vitamin D3 5 mcg (200 unit) tablet citalopram 10 mg tablet 10 mg PO QAM 05/18/18 01/05/23 lorazepam 0.5 mg tablet 0.5 mg PO HS 05/18/18 01/05/23 multivitamin 1 tab PO QAM 11/10/18 01/05/23 prednisone 5 mg tablet 5 mg PO UD 11/10/18 01/05/23 diclofenac sodium 1 % topical gel 2 g topical QID PRN Pain 02/20/21 01/05/23 cyanocobalamin (vitamin B-12) 1,000 mcg IM MONTHLY 01/14/22 01/05/23 1,000 mcg/mL injection solution famotidine 20 mg tablet 20 mg PO DAILY 01/14/22 01/05/23 ammonium lactate 12 % topical cream 1 applic topical . NEEDED PRN 08/16/22 01/05/23 dry skin,arms and legs allopurinol 100 mg tablet 100 mg PO QAM 01/05/23 01/05/23 furosemide 20 mg tablet 20 mg PO DAILY PRN swelling 01/05/23 01/05/23 ondansetron HCl 4 mg tablet 4 mg PO Q6H PRN Nausea 01/05/23 01/05/23 potassium chloride 10 mEq 10 meq PO DAILY PRN Only if taking 01/05/23 01/05/23 tablet,extended Lasix release(part/cryst) (Klor-Con M) venetoclax 100 mg tablet 100 mg PO DAILY 01/05/23 01/05/23 (Venclexta) Results & Data (ED) Vital Signs Vital Signs - 24 hr 01/05/23 12:35 01/05/23 13:29 01/05/23 13:52 Temperature 36.8 C Temperature Source Oral Pulse Rate 86 71 74 Pulse Rate [Right Finger] Pulse Rhythm [Right Finger] Pulse Strength [Right Finger] Respiratory Rate 20 Respiratory Effort / Characteristics Non-Labored Respiratory Depth Normal Respiratory Pattern Blood Pressure 127/76 Blood Pressure [Left Arm] Blood Pressure Mean 93 Blood Pressure Mean [Left Arm] Blood Pressure Position [Left Arm] Pulse Oximetry 98 96 Oxygen Delivery Method Room Air Room Air Sepsis Recent Fever Within 48 Hours No Sepsis New/Unexplained Change in Mental Status N/A Sepsis Action Taken by Nursing No Action Required 01/05/23 14:27 01/05/23 15:43 01/05/23 17:38 Temperature Temperature Source Pulse Rate 93 H Pulse Rate [Right Finger] 77 81 Pulse Rhythm [Right Finger] Regular Pulse Strength [Right Finger] Normal Respiratory Rate 18 17 Respiratory Effort / Characteristics Non-Labored Respiratory Depth Normal Respiratory Pattern Regular Blood Pressure Blood Pressure [Left Arm] 148/69 H 154/73 H Blood Pressure Mean Blood Pressure Mean [Left Arm] 95 100 Blood Pressure Position [Left Arm] Sitting Pulse Oximetry 97 98 Oxygen Delivery Method Room Air Room Air Sepsis Recent Fever Within 48 Hours Sepsis New/Unexplained Change in Mental Status Sepsis Action Taken by Usp Medications Current Medication List: was personally reviewed by me Laboratory Data Attestation: I reviewed the patient's lab results. 01/05/23 14:15 01/05/23 13:39 Lab Results 01/05/23 01/05/23 01/05/23 Range/Units 13:39 13:39 13:39 WBC Cancelled RBC Cancelled Hgb Cancelled Hct Cancelled MCV Cancelled MCH Cancelled MCHC Cancelled RDW Std Deviation Cancelled RDW Coeff of Riley Cancelled Plt Count Cancelled MPV Cancelled Immature Gran % (Auto) Cancelled Neut % (Auto) Cancelled Lymph % (Auto) Cancelled [place] % (Auto) Cancelled Eos % (Auto) Cancelled Baso % (Auto) Cancelled Neut # (Auto) Cancelled Lymph # (Auto) Cancelled [place] # (Auto) Cancelled Eos # (Auto) Cancelled Baso # (Auto) Cancelled Immature Gran # (Auto) Cancelled Absolute Nucleated RBC Cancelled Nucleated RBC % (auto) Cancelled Neutrophils % (Manual) Cancelled Band Neutrophils % Cancelled Lymphocytes % (Manual) Cancelled Prolymphocyte % Cancelled Reactive Lymphs % (Man) Cancelled Monocytes % (Manual) Cancelled Eosinophils % (Manual) Cancelled Basophils % (Manual) Cancelled Metamyelocytes % (Man) Cancelled Myelocytes % (Man) Cancelled Promyelocytes % (Man) Cancelled Blast Cells % (Manual) Cancelled Plasma Cell % (Manual) Cancelled Other Cells % Cancelled Nucleated RBC % Cancelled Neutrophils # (Manual) Cancelled Band Neutrophils # Cancelled Total Absolute Neuts Cancelled Lymphocytes # (Manual) Cancelled Prolymphocyte # Cancelled Reactive Lymphs # Cancelled Total Abs Lymphocytes Cancelled Monocytes # (Manual) Cancelled Eosinophils # (Manual) Cancelled Basophils # (Manual) Cancelled Metamyelocytes # (Man) Cancelled Myelocytes # (Manual) Cancelled Promyelocytes # (Man) Cancelled Blast Cells # (Man) Cancelled Plasma Cell # (Manual) Cancelled Other Cells # Cancelled Nucleated RBCs # (Man) Cancelled Hypersegmented Neuts Cancelled Hyposegmented Neuts Cancelled Hypogranular Neuts Cancelled Large Granular Lymphs Cancelled # Lrg Granular Lymphs Cancelled Hairy Cells Cancelled Smudge Cells Cancelled Toxic Granulation Cancelled Toxic Vacuolation Cancelled Dohle Bodies Cancelled Lucas Rods Cancelled Platelet Estimate Cancelled Hypogranular Platelets Cancelled Giant Platelets Cancelled Platelet Satelliting Cancelled RBC Morphology Cancelled Polychromasia Cancelled Hypochromasia Cancelled Poikilocytosis Cancelled Basophilic Stippling Cancelled Anisocytosis Cancelled Microcytosis Cancelled Macrocytosis Cancelled Spherocytes Cancelled Pappenheimer Bodies Cancelled Sickle Cells Cancelled Target Cells Cancelled Tear Drop Cells Cancelled Ovalocytes Cancelled Stomatocytes Cancelled Velez-Buckland Bodies Cancelled Echinocytes Cancelled Acanthocytes (Spur) Cancelled Rouleaux Cancelled RBC Agglutinates Cancelled Schistocytes Cancelled Sezary Cell Cancelled Sodium 131 L (136-145) mmol/L Potassium 4.6 (3.5-5.1) mmol/L Chloride 101 (98-107) mmol/L Carbon Dioxide 23 (21-32) mmol/L Anion Gap 7 (3-11) BUN 36 H (6-23) mg/dl Creatinine 1.17 (0.6-1.2) mg/dl Est Cr Clr Drug Dosing 29.1 ml/min Est GFR ( Amer) 49.2 ml/min Est GFR (Non-Af Amer) 42.5 ml/min BUN/Creatinine Ratio 30.8 H (10-20) Glucose 127 H (70-99(Fasting)) mg/dl Lactate (0.4-2.0) mmol/L Calcium 8.5 L (8.6-10.3) mg/dl Magnesium 2.1 (1.7-2.4) mg/dl Total Bilirubin 0.6 (0.2-1.0) mg/dl Direct Bilirubin 0.1 (0-0.2) mg/dl AST 34 (13-39) U/L ALT 27 (7-52) U/L Alkaline Phosphatase 67 (34-104) U/L Troponin I High Sens 354.1 H* (0-14) pg/ml Total Protein 6.5 (6.0-8.3) gm/dl Albumin 3.4 (3.4-5.0) gm/dl Procalcitonin 37.10 H (0-0.5) ng/ml Urine Color Urine Appearance (Clear) Urine pH (4.5-7.5) Ur Specific [place] (1.000-1.030) Urine Protein (Negative) Urine Glucose (UA) (Negative) Urine Ketones (Negative) Urine Blood (Negative) Urine Nitrite (Negative) Urine Bilirubin (Negative) Urine Urobilinogen (Negative) Ur Leukocyte Esterase (Negative) Urine WBC (Auto) (0-5) /hpf Urine RBC (Auto) (0-4) /hpf U Hyaline Cast (Auto) (0-5) /lpf U Epithel Cells (Auto) (0-5) /lpf Urine Bacteria (Auto) (Negative) Nasal Screen MRSA (PCR) (Negative) Adenovirus (PCR) (NotDetected) B. pertussis DNA (PCR) (NotDetected) B.parapertussis DNA PCR (NotDetected) C. pneumoniae DNA (PCR) (NotDetected) Coronavirus OC43 (PCR) (NotDetected) Coronavirus HKU1 (PCR) (NotDetected) Coronavirus 229E (PCR) (NotDetected) SARS-CoV-2 (PCR) (NotDetected) Coronavirus NL63 (PCR) (NotDetected) Human Metapneumovir PCR (NotDetected) Influenza Type A (PCR) (NotDetected) Influenza Type B (PCR) (NotDetected) M. pneumoniae (PCR) (NotDetected) Parainfluenza 1 (PCR) (NotDetected) Parainfluenza 2 (PCR) (NotDetected) Parainfluenza 3 (PCR) (NotDetected) Parainfluenza 4 (PCR) (NotDetected) RSV (PCR) (NotDetected) Entero/Rhino (PCR) (NotDetected) Blood Parasites ID Cancelled 01/05/23 01/05/23 01/05/23 Range/Units 13:39 13:39 14:03 WBC RBC Hgb Hct MCV MCH MCHC RDW Std Deviation RDW Coeff of Riley Plt Count MPV Immature Gran % (Auto) Neut % (Auto) Lymph % (Auto) [place] % (Auto) Eos % (Auto) Baso % (Auto) Neut # (Auto) Lymph # (Auto) [place] # (Auto) Eos # (Auto) Baso # (Auto) Immature Gran # (Auto) Absolute Nucleated RBC Nucleated RBC % (auto) Neutrophils % (Manual) Band Neutrophils % Lymphocytes % (Manual) Prolymphocyte % Reactive Lymphs % (Man) Monocytes % (Manual) Eosinophils % (Manual) Basophils % (Manual) Metamyelocytes % (Man) Myelocytes % (Man) Promyelocytes % (Man) Blast Cells % (Manual) Plasma Cell % (Manual) Other Cells % Nucleated RBC % Neutrophils # (Manual) Band Neutrophils # Total Absolute Neuts Lymphocytes # (Manual) Prolymphocyte # Reactive Lymphs # Total Abs Lymphocytes Monocytes # (Manual) Eosinophils # (Manual) Basophils # (Manual) Metamyelocytes # (Man) Myelocytes # (Manual) Promyelocytes # (Man) Blast Cells # (Man) Plasma Cell # (Manual) Other Cells # Nucleated RBCs # (Man) Hypersegmented Neuts Hyposegmented Neuts Hypogranular Neuts Large Granular Lymphs # Lrg Granular Lymphs Hairy Cells Smudge Cells Toxic Granulation Toxic Vacuolation Dohle Bodies Lucas Rods Platelet Estimate Hypogranular Platelets Giant Platelets Platelet Satelliting RBC Morphology Polychromasia Hypochromasia Poikilocytosis Basophilic Stippling Anisocytosis Microcytosis Macrocytosis Spherocytes Pappenheimer Bodies Sickle Cells Target Cells Tear Drop Cells Ovalocytes Stomatocytes Velez-Buckland Bodies Echinocytes Acanthocytes (Spur) Rouleaux RBC Agglutinates Schistocytes Sezary Cell Sodium (136-145) mmol/L Potassium (3.5-5.1) mmol/L Chloride (98-107) mmol/L Carbon Dioxide (21-32) mmol/L Anion Gap (3-11) BUN (6-23) mg/dl Creatinine (0.6-1.2) mg/dl Est Cr Clr Drug Dosing ml/min Est GFR ( Amer) ml/min Est GFR (Non-Af Amer) ml/min BUN/Creatinine Ratio (10-20) Glucose (70-99(Fasting)) mg/dl Lactate (0.4-2.0) mmol/L Calcium (8.6-10.3) mg/dl Magnesium (1.7-2.4) mg/dl Total Bilirubin (0.2-1.0) mg/dl Direct Bilirubin (0-0.2) mg/dl AST (13-39) U/L ALT (7-52) U/L Alkaline Phosphatase (34-104) U/L Troponin I High Sens (0-14) pg/ml Total Protein (6.0-8.3) gm/dl Albumin (3.4-5.0) gm/dl Procalcitonin (0-0.5) ng/ml Urine Color Dark Yellow Urine Appearance Cloudy A (Clear) Urine pH 5.5 (4.5-7.5) Ur Specific [place] 1.012 (1.000-1.030) Urine Protein 1+ H (Negative) Urine Glucose (UA) Negative (Negative) Urine Ketones Negative (Negative) Urine Blood 2+ H (Negative) Urine Nitrite Positive A (Negative) Urine Bilirubin Negative (Negative) Urine Urobilinogen Negative (Negative) Ur Leukocyte Esterase 2+ H (Negative) Urine WBC (Auto) 10-30 H (0-5) /hpf Urine RBC (Auto) 5-10 H (0-4) /hpf U Hyaline Cast (Auto) 0 (0-5) /lpf U Epithel Cells (Auto) 0-5 (0-5) /lpf Urine Bacteria (Auto) 4+ H (Negative) Nasal Screen MRSA (PCR) Positive A (Negative) Adenovirus (PCR) Not Detected (NotDetected) B. pertussis DNA (PCR) Not Detected (NotDetected) B.parapertussis DNA PCR Not Detected (NotDetected) C. pneumoniae DNA (PCR) Not Detected (NotDetected) Coronavirus OC43 (PCR) Not Detected (NotDetected) Coronavirus HKU1 (PCR) Not Detected (NotDetected) Coronavirus 229E (PCR) Not Detected (NotDetected) SARS-CoV-2 (PCR) Not Detected (NotDetected) Coronavirus NL63 (PCR) Not Detected (NotDetected) Human Metapneumovir PCR Not Detected (NotDetected) Influenza Type A (PCR) Not Detected (NotDetected) Influenza Type B (PCR) Not Detected (NotDetected) M. pneumoniae (PCR) Not Detected (NotDetected) Parainfluenza 1 (PCR) Not Detected (NotDetected) Parainfluenza 2 (PCR) Not Detected (NotDetected) Parainfluenza 3 (PCR) Not Detected (NotDetected) Parainfluenza 4 (PCR) Not Detected (NotDetected) RSV (PCR) Not Detected (NotDetected) Entero/Rhino (PCR) Not Detected (NotDetected) Blood Parasites ID 01/05/23 01/05/23 Range/Units 14:15 14:15 WBC 41.92 H* RBC 3.21 L Hgb 10.2 L Hct 31.3 L MCV 97.5 MCH 31.8 MCHC 32.6 RDW Std Deviation 54.9 H RDW Coeff of Riley 15.3 H Plt Count 54 L MPV 9.7 Immature Gran % (Auto) 0.1 Neut % (Auto) 6.9 Lymph % (Auto) 89.9 [place] % (Auto) 3.1 Eos % (Auto) 0.0 Baso % (Auto) 0.0 Neut # (Auto) 2.85 Lymph # (Auto) 37.68 H [place] # (Auto) 1.32 H Eos # (Auto) 0.00 Baso # (Auto) 0.02 Immature Gran # (Auto) 0.05 Absolute Nucleated RBC Nucleated RBC % (auto) Neutrophils % (Manual) Band Neutrophils % Lymphocytes % (Manual) Prolymphocyte % Reactive Lymphs % (Man) Monocytes % (Manual) Eosinophils % (Manual) Basophils % (Manual) Metamyelocytes % (Man) Myelocytes % (Man) Promyelocytes % (Man) Blast Cells % (Manual) Plasma Cell % (Manual) Other Cells % Nucleated RBC % Neutrophils # (Manual) Band Neutrophils # Total Absolute Neuts Lymphocytes # (Manual) Prolymphocyte # Reactive Lymphs # Total Abs Lymphocytes Monocytes # (Manual) Eosinophils # (Manual) Basophils # (Manual) Metamyelocytes # (Man) Myelocytes # (Manual) Promyelocytes # (Man) Blast Cells # (Man) Plasma Cell # (Manual) Other Cells # Nucleated RBCs # (Man) Hypersegmented Neuts Hyposegmented Neuts Hypogranular Neuts Large Granular Lymphs # Lrg Granular Lymphs Hairy Cells Smudge Cells Toxic Granulation Toxic Vacuolation Dohle Bodies Lucas Rods Platelet Estimate Hypogranular Platelets Giant Platelets Platelet Satelliting RBC Morphology Polychromasia Hypochromasia Poikilocytosis Basophilic Stippling Anisocytosis Microcytosis Macrocytosis Spherocytes Pappenheimer Bodies Sickle Cells Target Cells Tear Drop Cells Ovalocytes Stomatocytes Velez-Buckland Bodies Echinocytes Acanthocytes (Spur) Rouleaux RBC Agglutinates Schistocytes Sezary Cell Sodium (136-145) mmol/L Potassium (3.5-5.1) mmol/L Chloride (98-107) mmol/L Carbon Dioxide (21-32) mmol/L Anion Gap (3-11) BUN (6-23) mg/dl Creatinine (0.6-1.2) mg/dl Est Cr Clr Drug Dosing ml/min Est GFR ( Amer) ml/min Est GFR (Non-Af Amer) ml/min BUN/Creatinine Ratio (10-20) Glucose (70-99(Fasting)) mg/dl Lactate 1.6 (0.4-2.0) mmol/L Calcium (8.6-10.3) mg/dl Magnesium (1.7-2.4) mg/dl Total Bilirubin (0.2-1.0) mg/dl Direct Bilirubin (0-0.2) mg/dl AST (13-39) U/L ALT (7-52) U/L Alkaline Phosphatase (34-104) U/L Troponin I High Sens (0-14) pg/ml Total Protein (6.0-8.3) gm/dl Albumin (3.4-5.0) gm/dl Procalcitonin (0-0.5) ng/ml Urine Color Urine Appearance (Clear) Urine pH (4.5-7.5) Ur Specific [place] (1.000-1.030) Urine Protein (Negative) Urine Glucose (UA) (Negative) Urine Ketones (Negative) Urine Blood (Negative) Urine Nitrite (Negative) Urine Bilirubin (Negative) Urine Urobilinogen (Negative) Ur Leukocyte Esterase (Negative) Urine WBC (Auto) (0-5) /hpf Urine RBC (Auto) (0-4) /hpf U Hyaline Cast (Auto) (0-5) /lpf U Epithel Cells (Auto) (0-5) /lpf Urine Bacteria (Auto) (Negative) Nasal Screen MRSA (PCR) (Negative) Adenovirus (PCR) (NotDetected) B. pertussis DNA (PCR) (NotDetected) B.parapertussis DNA PCR (NotDetected) C. pneumoniae DNA (PCR) (NotDetected) Coronavirus OC43 (PCR) (NotDetected) Coronavirus HKU1 (PCR) (NotDetected) Coronavirus 229E (PCR) (NotDetected) SARS-CoV-2 (PCR) (NotDetected) Coronavirus NL63 (PCR) (NotDetected) Human Metapneumovir PCR (NotDetected) Influenza Type A (PCR) (NotDetected) Influenza Type B (PCR) (NotDetected) M. pneumoniae (PCR) (NotDetected) Parainfluenza 1 (PCR) (NotDetected) Parainfluenza 2 (PCR) (NotDetected) Parainfluenza 3 (PCR) (NotDetected) Parainfluenza 4 (PCR) (NotDetected) RSV (PCR) (NotDetected) Entero/Rhino (PCR) (NotDetected) Blood Parasites ID Administered Medications Discontinued Medications Cefepime HCl (Maxipime) 2,000 mg in 20 mls @ 5 mls/min IV NOW STA; Protocol Stop: 01/05/23 13:52 Last Admin: 01/05/23 14:20 Dose: 5 mls/min Documented By: SHERRIE Sodium Chloride (Nss 1000ml) 500 mls @ 999 mls/hr IV .Q31M ONE Stop: 01/05/23 15:30 Last Infusion: 01/05/23 16:10 Dose: 0 mls/hr Documented By: Admin: 01/05/23 15:22 Dose: 999 mls/hr Documented By: MS Calcium Gluconate () 1,000 mg in 60 mls @ 240 mls/hr IV NOW STA Stop: 01/05/23 15:33 Last Infusion: 01/05/23 15:45 Dose: 0 mls/hr Documented By: Admin: 01/05/23 15:29 Dose: 240 mls/hr Documented By: MS Imaging Data Radiologist's Impression: Head CT 01/05/23 13:36 CT SCAN OF THE BRAIN WITHOUT IV CONTRAST CLINICAL HISTORY: Change in mental status. COMPARISON STUDY: CT of the brain dated 02/09/2021. TECHNIQUE: Unenhanced axial CT scan of the brain is performed from the vertex to the skull base. A dose lowering technique was utilized adhering to the principles of ALARA. CT DOSE: 625.80 mGy.cm FINDINGS: Brain parenchyma: There is age-related involutional change noting moderate to advanced subcortical and periventricular microangiopathic disease. There is no hemorrhage, mass effect, or evidence of acute territorial ischemia by CT criteria. Mtz-white matter differentiation is preserved. No extra-axial fluid collection is seen. Ventricles, sulci, cisterns: Prominent secondary to involutional change. Intracranial vasculature: There is atherosclerotic calcification of the cavernous carotid and vertebral arteries. Calvarium: Unremarkable. Sinuses and mastoids: The visualized paranasal sinuses are clear. The mastoid air cells are well pneumatized. Orbits: The bony orbits are grossly intact. There are bilateral ocular lens implants. IMPRESSION: There is no hemorrhage, mass effect, or evidence of acute vinod torial ischemia by CT criteria. ACT 112: Negative or not required by law. Electronically signed by: Jaime Horvath M.D. 01/05/2023 2:50 PM Chest X-Ray 01/05/23 13:37 SINGLE VIEW CHEST CLINICAL HISTORY: Sepsis. FINDINGS: An AP, portable, upright chest radiograph is compared to study dated 08/16/2022 and correlated with chest CT dated 02/09/2021. The heart is enlarged and noting atherosclerotic calcification of the thoracic aorta. There is pulmonary vascular congestion. Chronic interstitial thickening similar to previous. There is bibasilar scarring/atelectasis. No airspace consolidation or large pleural effusion is identified. No pneumothorax is seen. The skeletal structures are osteopenic. There is chronic compression deformity of the left proximal humerus. Advanced arthritic changes seen in the left shoulder. A right shoulder arthroplasty is in place. Soft tissue calcifications are again seen in both breasts. IMPRESSION: Cardiomegaly with mild pulmonary vascular congestion. ACT 112: Negative or not required by law. Electronically signed by: Jaime Horvath M.D. 01/05/2023 2:40 PM Discharge Plan Visit Data Chief Complaint: Illness Stated Complaint: CHILLS, CONFUSION - POSSIBLE INFECTION ED Provider: Avinash Bryant Discharge Problem: Acute UTI, Chronic lymphocytic leukemia, Hypocalcemia, Acute hyponatremia Forms Stand Alone Forms: My [facility] TreatFeed Prescriptions Prescriptions: No Action citalopram 10 mg Tablet 10 mg PO QAM lorazepam 0.5 mg Tablet 0.5 mg PO HS calcium citrate-vitamin D3 250 mg calcium- 200 unit Tablet 1 tab PO QAM multivitamin Tablet 1 tab PO QAM prednisone 5 mg tablet 5 mg PO UD Rx Instructions: on hold until finished with tapering dose famotidine 20 mg Tablet 20 mg PO DAILY cyanocobalamin (vitamin B-12) 1,000 mcg/mL Solution 1,000 mcg IM MONTHLY ondansetron HCl 4 mg tablet 4 mg PO Q6H PRN (Reason: Nausea) allopurinol 100 mg tablet 100 mg PO QAM furosemide 20 mg tablet 20 mg PO DAILY PRN (Reason: swelling) potassium chloride [Klor-Con M10] 10 mEq tablet,ER particles/crystals 10 meq PO DAILY PRN (Reason: Only if taking Lasix) Venclexta 100 mg Tablet 100 mg PO DAILY diclofenac sodium 1 % gel 2 g TOPICAL QID PRN (Reason: Pain) ammonium lactate 12 % cream 1 applic TOPICAL . NEEDED PRN (Reason: dry skin,arms and legs) Referrals Referrals: Willem Estrada MD [Primary Care Provider] -
[2023-01-05] MEDS ORDERED: CEFEPIME 2,000 MG/20 ML VIAL IV STA (13:49)
[2023-01-05 14:03] LABS: Appearance Urine Cloudy (Clear); Bacteria Urine Automated 4+ (Negative); Bilirubin Urine Negative (Negative); Blood Urine 2+ (Negative); Cast Urine Automated 0 /lpf (0-5); Color Urine Dark Yellow; Epithelial Cell Urine Auto 0-5 /lpf (0-5); Glucose Urine UA Negative (Negative); Ketones Urine Negative (Negative); Leukocyte Esterase Urine 2+ (Negative); Nitrite Urine Positive (Negative); Protein Urine 1+ (Negative); Specific Gravity Urine 1.012 (1.000-1.030); Urobilinogen Urine Negative (Negative); pH Urine 5.5 (4.5-7.5)
[2023-01-05 14:19] LABS: Albumin Level 3.4 gm/dl (3.4-5.0); BUN Creatinine Ratio 30.8 (10-20); Bilirubin Direct 0.1 mg/dl (0-0.2); Bilirubin,Total 0.6 mg/dl (0.2-1.0); Calcium 8.5 mg/dl (8.6-10.3); Creatinine Clr Calc Pharmacy 29.1 ml/min; Est GFR (African American) 49.2 ml/min; Est GFR (Non-African American) 42.5 ml/min; Magnesium 2.1 mg/dl (1.7-2.4); Potassium 4.6 mmol/L (3.5-5.1); Total Protein 6.5 gm/dl (6.0-8.3)
[2023-01-05 14:29] LABS: Troponin I High Sensitivity 354.1 pg/ml (0-14)
--- NOTE | 2023-01-05 14:42 | XRay Report ---
SINGLE VIEW CHEST CLINICAL HISTORY: Sepsis. FINDINGS: An AP, portable, upright chest radiograph is compared to study dated 08/16/2022 and correlat ed with chest CT dated 02/09/2021. The heart is enlarged and noting atherosclerotic calcification of th e thoracic aorta. There is pulmonary vascular congestion. Chronic interstitial thickening similar to previous. There is bibasilar scarring/atelectasis. No airspace consolidation or large pleural effusio n is identified. No pneumothorax is seen. The skeletal structures are osteopenic. There is chronic co mpression deformity of the left proximal humerus. Advanced arthritic changes seen in the left shoulde r. A right shoulder arthroplasty is in place. Soft tissue calcifications are again seen in both breas ts. IMPRESSION: Cardiomegaly with mild pulmonary vascular congestion. ACT 112: Negative or not required by law. Electronically signed by: Jaime Horvath M.D. 01/05/2023 2:40 PM
[2023-01-05 14:45] LABS: Adenovirus PCR Not Detected (NotDetected); Bordetella parapertussis PCR Not Detected (NotDetected); Bordetella pertussis PCR Not Detected (NotDetected); Chlamydia pneumoniae PCR Not Detected (NotDetected); Coronavirus 229E PCR Not Detected (NotDetected); Coronavirus CoV-2 (COVID19)PCR Not Detected (NotDetected); Coronavirus HKU1 PCR Not Detected (NotDetected); Coronavirus NL63 PCR Not Detected (NotDetected); Coronavirus OC43PCR Not Detected (NotDetected); Human Metapneumovirus PCR Not Detected (NotDetected); Influenza A PCR Not Detected (NotDetected); Influenza B PCR Not Detected (NotDetected); Mycoplasma pneumoniae PCR Not Detected (NotDetected); Parainfluenza Virus 1 PCR Not Detected (NotDetected); Parainfluenza Virus 2 PCR Not Detected (NotDetected); Parainfluenza Virus 3 PCR Not Detected (NotDetected); Parainfluenza Virus 4 PCR Not Detected (NotDetected); Respiratory Syncytial VirusPCR Not Detected (NotDetected); Rhinovirus/Enterovirus PCR Not Detected (NotDetected)
[2023-01-05 14:52] LABS: Hematocrit (blood only) 31.3 % (37.0-47.0); Hemoglobin 10.2 g/dl (12.0-16.0); Mean Corpuscular Hemoglobin 31.8 pg (25.0-34.0); Mean Corpuscular Hgb Conc 32.6 g/dL (32.0-36.0); Mean Corpuscular Volume 97.5 fL (80.0-100.0); Mean Platelet Volume 9.7 fL (9.4-12.4); Platelet Count 54 K/uL (130-400); RDW Coefficient of Variation 15.3 % (11.5-14.5); RDW Standard Deviation 54.9 fL (36.4-46.3); Red Blood Count 3.21 M/uL (4.20-5.40); White Blood Count 41.92 K/ul (4.8-10.8)
--- NOTE | 2023-01-05 14:53 | CT Scan Report ---
CT SCAN OF THE BRAIN WITHOUT IV CONTRAST CLINICAL HISTORY: Change in mental status. COMPARISON STUDY: CT of the brain dated 02/09/2021. TECHNIQUE: Unenhanced axial CT scan of the brain is performed from the vertex to the skull base. A do se lowering technique was utilized adhering to the principles of ALARA. CT DOSE: 625.80 mGy.cm FINDINGS: Brain parenchyma: There is age-related involutional change noting moderate to advanced subcortical an d periventricular microangiopathic disease. There is no hemorrhage, mass effect, or evidence of acute territorial ischemia by CT criteria. Mtz-white matter differentiation is preserved. No extra-axial fluid collection is seen. Ventricles, sulci, cisterns: Prominent secondary to involutional change. Intracranial vasculature: There is atherosclerotic calcification of the cavernous carotid and vertebr al arteries. Calvarium: Unremarkable. Sinuses and mastoids: The visualized paranasal sinuses are clear. The mastoid air cells are well pneu matized. Orbits: The bony orbits are grossly intact. There are bilateral ocular lens implants. IMPRESSION: There is no hemorrhage, mass effect, or evidence of acute territorial ischemia by CT sherry khoury. ACT 112: Negative or not required by law. Electronically signed by: Jaime Horvath M.D. 01/05/2023 2:50 PM
[2023-01-05] MEDS ORDERED: SODIUM CHLORIDE 0.9% 1000ML 500 ML IV ONE (15:00)
[2023-01-05] MEDS ORDERED: CALCIUM GLUCONATE 1,000 MG/60 ML BAG IV STA (15:19)
[2023-01-05 15:23] LABS: Basophils # (auto) 0.02 K/uL (0-0.2); Immature Granulocytes # (auto) 0.05 K/uL (0.01-0.20); Immature Granulocytes % (auto) 0.1 %; Lymphocytes # (auto) 37.68 K/uL (1.2-3.4); Lymphocytes % (auto) 89.9 %; Monocytes # (auto) 1.32 K/uL (0.11-0.59); Monocytes % (auto) 3.1 %; Neutrophils # (auto) 2.85 K/uL (1.40-6.50); Neutrophils % (auto) 6.9 %
--- NOTE | 2023-01-05 16:22 | History & Physical Report ---
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 Weakness/Fevers/Chills Pt presenting from home, brought in by her son for weakness, fevers and chills Has CLL so WBC chronically elevated. 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 and there was concern related to her CLL (see below) UA suggestive of infection, urine culture pending Hx of recent wound in November being followed by the wound clinic on lower extremity Blood Cx pending Started on Cefepime in the ED continue PT/OT CLL, hypogammaglobulinemia, chronic anemia, thrombocytopenia 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 and there was concern related to her CLL CLL was not responding to ibrutinib and was switched in December 2022 to Venetoclax (started December 18, 2022 with increasing doses) and rituximab in 4 weeks. Pt states she has the venetoclax at home. Notes that 4 days ago she increased the dose of it from 50 mg to 100mg and believes her weakness might be related to that. Consider contacting son to bring in her nonformulary medications. Follows with Dr. Vasquez from hematology, consider contacting for further recommendations as to possible sideffect Anxiety/MDD On celexa andf lorazepam, continue seronegative polyarthritis/osteoarthritis on chronic prednisone Rx, continue Gout Continue allopurinol Edema Continue lasix GERD continue famotidine DVT prophylaxis: SCDs, Hx of thrombocytopenia, anemia Diet: Regular CODE STATUS:DNR/DNI Dispo: Med/Surg History of Present Illness Chief Complaint: Weakness, Fevers and chills Primary Care Provider: Willem Estrada MD 87yoF with PMHx of significant for CLL s/p radiation currently on Venetoclax and rituximab, 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 Has difficulty hearing, uses an ipad with speech recognition to help with communication. States that her son ( not present at bedside) was concerned about her increasing weakness with fevers and "shaking". Denies dysuria. States that her wound on her lower extremity has been inproving. Notes her Hx of CLL and states that she was started on a medication for that and would like to continue taking it. Notes that 4 days ago she increased the dose of it from 50 mg to 100mg and believes her weakness might be related to that. Unsure of the exact name. States she was promised by Dr. Vasquez that she would not have to go to the hospital. Started crying after she made that statement. She is AAOx3. Allergies Allergy/AdvReac Type Severity Reaction Status Date / Time Cephalosporins Allergy Unknown UNKNOWN Verified 11/06/22 09:30 mirabegron Allergy Unknown Unknown Verified 11/06/22 09:30 nitrofurantoin Allergy Unknown UNKNOWN Verified 11/06/22 09:30 oxaprozin Allergy Unknown UNKNOWN Verified 11/06/22 09:30 oxybutynin Allergy Unknown UNKNOWN Verified 11/06/22 09:30 Home Medications Medication Instructions Recorded Confirmed Type calcium citrate 250 mg 1 tab PO QAM 05/18/18 01/05/23 History calcium-vitamin D3 5 mcg (200 unit) tablet citalopram 10 mg tablet 10 mg PO QAM 05/18/18 01/05/23 History lorazepam 0.5 mg tablet 0.5 mg PO HS 05/18/18 01/05/23 History multivitamin 1 tab PO QAM 11/10/18 01/05/23 History prednisone 5 mg tablet 5 mg PO UD 11/10/18 01/05/23 History diclofenac sodium 1 % topical gel 2 g topical QID PRN Pain 02/20/21 01/05/23 History cyanocobalamin (vitamin B-12) 1,000 mcg IM MONTHLY 01/14/22 01/05/23 History 1,000 mcg/mL injection solution famotidine 20 mg tablet 20 mg PO DAILY 01/14/22 01/05/23 History ammonium lactate 12 % topical cream 1 applic topical . NEEDED PRN 08/16/22 01/05/23 History dry skin,arms and legs allopurinol 100 mg tablet 100 mg PO QAM 01/05/23 01/05/23 History furosemide 20 mg tablet 20 mg PO DAILY PRN swelling 01/05/23 01/05/23 History ondansetron HCl 4 mg tablet 4 mg PO Q6H PRN Nausea 01/05/23 01/05/23 History potassium chloride 10 mEq 10 meq PO DAILY PRN Only if taking 01/05/23 01/05/23 History tablet,extended Lasix release(part/cryst) (Klor-Con M) venetoclax 100 mg tablet 100 mg PO DAILY 01/05/23 01/05/23 History (Venclexta) Past Med/Surg History Medical History Anemia Chronic lymphocytic leukemia Closed rib fracture Closed tibia fracture Diverticulosis of colon Dyslipidemia Fracture of spine REZA (generalized anxiety disorder) GERD (gastroesophageal reflux disease) History of squamous cell carcinoma Hypogammaglobulinemia, acquired Osteoarthritis Osteoporosis Stress reaction Symptomatic anemia Surgical History History of orthopedic surgery Status post hysterectomy Family History Other Cancer Diabetes Heart disease Social History Smoking Status: Never smoker Second Hand Exposure: No; Do You Dip or Chew Tobacco: No; Hx Alcohol Use: No Hx Substance Use: No Preferred Language: [place] Communication Ability: Effective Communication Ability Comment: uses tablet for communication 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 Occasional crying spells Skin: Psych: Labile mood and affect Neuro: No gross deficits HEENT: NC/AT Chest: Nontender to palpation. CV: RRR Resp: Breath sounds clear bilaterally, no increased effort of breathing. Abdomen: Soft, nontender, nondistended. Extremities: edema in extremities bilaterally. Results & Data Results & Data Vital Signs (Past 12 Hours) Vital Signs Temp Pulse Pulse Resp BP BP Pulse Ox 01/05/23 15:43 81 17 154/73 H 98 01/05/23 14:27 77 18 148/69 H 97 01/05/23 13:52 74 96 01/05/23 13:29 71 01/05/23 12:35 36.8 C 86 20 127/76 98 O2 Del Method 01/05/23 15:43 Room Air 01/05/23 14:27 Room Air 01/05/23 13:52 Room Air 01/05/23 13:29 01/05/23 12:35 Room Air Diagnostic Findings Head CT 01/05/23 13:36 CT SCAN OF THE BRAIN WITHOUT IV CONTRAST CLINICAL HISTORY: Change in mental status. COMPARISON STUDY: CT of the brain dated 02/09/2021. TECHNIQUE: Unenhanced axial CT scan of the brain is performed from the vertex to the skull base. A dose lowering technique was utilized adhering to the principles of ALARA. CT DOSE: 625.80 mGy.cm FINDINGS: Brain parenchyma: There is age-related involutional change noting moderate to ad vanced subcortical and periventricular microangiopathic disease. There is no hemorrhage, mass effect, or evidence of acute territorial ischemia by CT criteria. Mtz-white matter differentiation is preserved. No extra-axial fluid collection is seen. Ventricles, sulci, cisterns: Prominent secondary to involutional change. Intracranial vasculature: There is atherosclerotic calcification of the ca vernous carotid and vertebral arteries. Calvarium: Unremarkable. Sinuses and mastoids: The visualized paranasal sinuses are clear. The mastoid air cells are well pneumatized. Orbits: The bony orbits are grossly intact. There are bilateral ocular lens implants. IMPRESSION: There is no hemorrhage, mass effect, or evidence of acute territorial ischemia by CT criteria. ACT 112: Negative or not required by law. Electronically signed by: Jaime Horvath M.D. 01/05/2023 2:50 PM Chest X-Ray 01/05/23 13:37 SINGLE VIEW CHEST CLINICAL HISTORY: Sepsis. FINDINGS: An AP, portable, upright chest radiograph is compared to study dated 08/16/2022 and correlated with chest CT dated 02/09/2021. The heart is enlarged and noting atherosclerotic calcification of the thoracic aorta. There is pulmonary vascular congestion. Chronic interstitial thickening similar to previous. There is bibasilar scarring/atelectasis. No airspace consolidation or large pleural ef fusion is identified. No pneumothorax is seen. The skeletal structures are osteopenic. There is chronic compression deformity of the left proximal humerus. Advanced arthritic changes seen in the left shoulder. A right shoulder arthroplasty is in place. Soft tissue calcifications are again seen in both breasts. IMPRESSION: Cardiomegaly with mild pulmonary vascular congestion. ACT 112: Negative or not required by law. Electronically signed by: Jaime Horvath M.D. 01/05/2023 2:40 PM
[2023-01-05] MEDS ORDERED: POLYETHYLENE (MIRALAX) 17 GM PACK PO PRN (16:24)
[2023-01-05] MEDS ORDERED: ACETAMINOPHEN 325 MG TAB PO PRN (16:24)
[2023-01-05] MEDS ORDERED: ONDANSETRON INJ 2 MG/ML 2 ML VIAL IV PRN (16:24)
[2023-01-05] MEDS ORDERED: ALUMINUM/MAGNESIUM SUSP 30 ML UDC PO PRN (16:24)
[2023-01-05] MEDS ORDERED: DICLOFENAC SOD 1% GEL 100 GM TUBE EXT PRN (20:33)
[2023-01-05] MEDS ORDERED: predniSONE 5 MG TAB PO SCH (20:33)
[2023-01-05] MEDS: LORazepam 0.5 MG TAB PO SCH (21:32)
[2023-01-06] MEDS: CEFEPIME 2,000 MG in SYRINGE 0 ML IV SCH ×2 (02:47→14:15)
[2023-01-06 02:49] LABS: A calco-baum cmplx NotReported Not Detected (NotDetected); Bact fragilis Not Reported Not Detected (NotDetected); C auris Not Reported Not Detected (NotDetected); CTX-M Resistant Gene Not Detected (NotDetected); Calbicans Not Reported Not Detected (NotDetected); Candida glabrata Not Reported Not Detected (NotDetected); Candida krusei Not Reported Not Detected (NotDetected); Cneoformans/gatti Not Reported Not Detected (NotDetected); Cparapsilosis Not Reported Not Detected (NotDetected); Ctropicalis Not Reported Not Detected (NotDetected); E cloacae compx Not Reported Not Detected (NotDetected); Efaecalis Not Reported Not Detected (NotDetected); Efaecium Not Reported Not Detected (NotDetected); Enterobacterales Not Reported DETECTED (NotDetected); Escherichia coli Not Reported DETECTED (NotDetected); H influenzae Not Reported Not Detected (NotDetected); IMP Resistant Gene Not Detected (NotDetected); K aerogenes Not Reported Not Detected (NotDetected); KPC Resistant Gene Not Detected (NotDetected); Koxytoca Not Reported Not Detected (NotDetected); Kpneumoniae grp Not Reported Not Detected (NotDetected); Lmonocyt Not Reported Not Detected (NotDetected); N meningitidis Not Reported Not Detected (NotDetected); NDM Resistant Gene Not Detected (NotDetected); OXA 48 Like Resistant Gene Not Detected (NotDetected); P aeruginosa Not Reported Not Detected (NotDetected); Proteus spp Not Reported Not Detected (NotDetected); Salmonella spp Not Reported Not Detected (NotDetected); Smarcescens Not Reported Not Detected (NotDetected); Staph lugdunensis Not Reported Not Detected (NotDetected); Staph spp. Not Reported Not Detected (NotDetected); Staphaureus Not Reported Not Detected (NotDetected); Staphepi Not Reported Not Detected (NotDetected); Stenmaltophilia Not Reported Not Detected (NotDetected); Strep agal(GrpB) Not Reported Not Detected (NotDetected); Strep pneum Not Reported Not Detected (NotDetected); Strep pyog (GrpA) Not Reported Not Detected (NotDetected); Strep spp Not Reported Not Detected (NotDetected); VIM Resistant Gene Not Detected (NotDetected); mcr-1 Colistin Resistant Gene Not Detected (NotDetected)
[2023-01-06 02:51] LABS: Enterobacterales DETECTED (NotDetected)
[2023-01-06] MEDS ORDERED: ALBUMIN 25% 25 GM/100 ML VIAL IV ONE (03:00)
[2023-01-06 06:43] LABS: Hemoglobin 8.7 g/dl (12.0-16.0); Mean Corpuscular Hemoglobin 32.1 pg (25.0-34.0); Mean Corpuscular Hgb Conc 32.2 g/dL (32.0-36.0); Mean Corpuscular Volume 99.6 fL (80.0-100.0); Mean Platelet Volume 10.2 fL (9.4-12.4); Platelet Count 44 K/uL (130-400); RDW Coefficient of Variation 15.5 % (11.5-14.5); RDW Standard Deviation 55.8 fL (36.4-46.3); Red Blood Count 2.71 M/uL (4.20-5.40); White Blood Count 36.68 K/ul (4.8-10.8)
[2023-01-06 07:01] LABS: BUN Creatinine Ratio 28.6 (10-20); Calcium 8.4 mg/dl (8.6-10.3); Creatinine Clr Calc Pharmacy 34.5 ml/min; Est GFR (Non-African American) 52.6 ml/min
[2023-01-06 07:25] LABS: Basophils # (auto) 0.09 K/uL (0-0.2); Basophils % (auto) 0.2 %; Echinocytes 1+; Immature Granulocytes # (auto) 0.02 K/uL (0.01-0.20); Immature Granulocytes % (auto) 0.1 %; Lymphocytes # (auto) 33.91 K/uL (1.2-3.4); Lymphocytes % (auto) 92.4 %; Monocytes # (auto) 0.64 K/uL (0.11-0.59); Monocytes % (auto) 1.7 %; Neutrophils # (auto) 2.02 K/uL (1.40-6.50); Neutrophils % (auto) 5.6 %; Polychromasia 1+; Smudge Cells Present
[2023-01-06] MEDS: allopurinoL 100 MG TAB PO SCH (07:49)
[2023-01-06] MEDS: CITALOPRAM 20 MG TAB PO SCH (07:49)
[2023-01-06] MEDS: FAMOTIDINE 20 MG TAB PO SCH (07:50)
--- NOTE | 2023-01-06 15:36 | Hospitalist Progress Note ---
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 She is being managed for the following: Weakness/Fevers/Chills Complicated UTI Gram-negative bacteremia Pt presenting from home, brought in by her son for weakness, fevers and chills; has history of Pseudomonas infection Hx of recent wound in November being followed by the wound clinic on lower extremity Has CLL so WBC chronically elevated. UA suggestive of infection, urine culture gram-negative bacilli Follow-up with admitting blood culture, currently gram-negative baseline. Continue with cefepime for now, de-escalate antibiotic tomorrow. PT/OT, repeat blood culture. 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 Pt states she has the venetoclax at home. Notes that 4 days ago she increased the dose of it from 50 mg to 100mg and believes her weakness might be related to that. Consider contacting son to bring in her nonformulary medications. Reached out to son, call couldn't connect x 2, will reach out again next feasible time. Follows with Dr. Otto from hematology, reached out to Dr otto via TT for recs on when to resume her meds and any other recs, awaiting reply. Anxiety/MDD On celexa andf lorazepam, continue seronegative polyarthritis/osteoarthritis on chronic prednisone Rx, continue Gout Continue allopurinol Edema Continue lasix GERD continue famotidine DVT prophylaxis: SCDs, Hx of thrombocytopenia, anemia Diet: Regular CODE STATUS:DNR/DNI Dispo: Med/Surg Admission and Anticipated Discharge Date Admission Date: January 05, 2023 Subjective Patient seen and examined at bedside as a follow-up of UTI, gram-negative bacteremia. Patient was sitting up in chair, on room air, NAD, reading books. Reports her strength and weakness getting better. Reports eating okay, has not moved bowel in few days. Reports feeling better. Denies any new acute event overnight. Denies any fever or chills or headache or dizziness today. Denies any chest pain. Tmax of 39.4 celcius yesterday evening. Physical Exam Physical Exam: GENERAL: Alert and oriented x3. NAD, on RA. HEENT: No pallor, no icterus. Pupils equal, round and reactive to light. Oral mucosa moist. NECK: No JVD, no neck masses. HEART: S1 and S2 heard. Regular rate and rhythm. No murmur, no gallop. RESPIRATORY SYSTEM: Normal AP diameter. No accessory muscle use. No wheezing, no crackles. ABDOMEN: Soft, bowel sounds present, nontender, no distention. CENTRAL NERVOUS SYSTEM: No facial droop. Speech is clear. Obeys simple commands. Moves extremities. EXTREMITIES: Trace/1+ BLE edema, chronic BLE skin changes noted, no erythema seen. Results & Data Results & Data Vital Signs (Past 12 Hours) Vital Signs Temp Pulse Resp BP Pulse Ox O2 Del Method 01/06/23 11:11 36.9 C 85 18 125/59 L 99 Room Air 01/06/23 07:36 36.7 C 82 20 161/71 H 98 Room Air
[2023-01-06] MEDS: LORazepam 0.5 MG TAB PO SCH (20:28)
[2023-01-07] MEDS: CEFEPIME 2,000 MG in SYRINGE 0 ML IV SCH (03:11)
[2023-01-07 06:44] LABS: BUN Creatinine Ratio 34.9 (10-20); Calcium 8.5 mg/dl (8.6-10.3); Creatinine Clr Calc Pharmacy 39.3 ml/min; Est GFR (African American) 71.4 ml/min; Est GFR (Non-African American) 61.6 ml/min; Magnesium 1.8 mg/dl (1.7-2.4); Phosphorus 2.5 mg/dl (2.5-4.9); Potassium 4.2 mmol/L (3.5-5.1)
[2023-01-07 07:20] LABS: Hematocrit (blood only) 27.5 % (37.0-47.0); Hemoglobin 9.1 g/dl (12.0-16.0); Mean Corpuscular Hemoglobin 32.2 pg (25.0-34.0); Mean Corpuscular Hgb Conc 33.1 g/dL (32.0-36.0); Mean Corpuscular Volume 97.2 fL (80.0-100.0); Mean Platelet Volume 9.4 fL (9.4-12.4); Platelet Count 48 K/uL (130-400); RDW Coefficient of Variation 15.3 % (11.5-14.5); RDW Standard Deviation 54.5 fL (36.4-46.3); Red Blood Count 2.83 M/uL (4.20-5.40); White Blood Count 30.09 K/ul (4.8-10.8)
[2023-01-07 07:59] LABS: Basophils # (auto) 0.06 K/uL (0-0.2); Basophils % (auto) 0.2 %; Eosinophils # (auto) 0.01 K/uL (0-0.50); Immature Granulocytes # (auto) 0.03 K/uL (0.01-0.20); Immature Granulocytes % (auto) 0.1 %; Lymphocytes % (auto) 92.1 %; Monocytes # (auto) 0.69 K/uL (0.11-0.59); Monocytes % (auto) 2.3 %; Neutrophils % (auto) 5.3 %; Smudge Cells Present
[2023-01-07] MEDS: FAMOTIDINE 20 MG TAB PO SCH (08:42)
[2023-01-07] MEDS: allopurinoL 100 MG TAB PO SCH (08:42)
[2023-01-07] MEDS: CITALOPRAM 20 MG TAB PO SCH (08:42)
[2023-01-07] MEDS: cefTRIAXone SODIUM 2,000 MG in DEXTROSE 5% 50 ML IV SCH (11:15)
--- NOTE | 2023-01-07 15:47 | Hospitalist Progress Note ---
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 She is being managed for the following: Weakness/Fevers/Chills Complicated UTI Gram-negative bacteremia/E. coli Pt presenting from home, brought in by her son for weakness, fevers and chills; has history of Pseudomonas infection Hx of recent wound in November being followed by the wound clinic on lower extremity Has CLL so WBC chronically elevated. UA suggestive of infection, urine culture with E. coli 01/06 echo reviewed 01/06 cefepime to 01/07 Rocephin, to oral in next 1 to 2 days PT/OT, follow repeat blood culture. 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 Pt states she has the venetoclax at home. Notes that 4 days ago she increased the dose of it from 50 mg to 100mg and believes her weakness might be related to that. Consider contacting son to bring in her nonformulary medications. Reached out to son, call couldn't connect x 2, will reach out again next feasible time. Follows with Dr. Otto from hematology, reached out to Dr otto via TT for recs on when to resume her meds and any other recs, awaiting reply. Anxiety/MDD On celexa and lorazepam, continue seronegative polyarthritis/osteoarthritis on chronic prednisone Rx, continue Gout Continue allopurinol Edema Continue lasix GERD continue famotidine DVT prophylaxis: SCDs, Hx of thrombocytopenia, anemia Diet: Regular CODE STATUS:DNR/DNI Dispo: PT/OT, likely rehab, CM to assist with DC planning. Called pt's son Jay over the phone ([phone]) and left voicemail to call us back at the hospital for general update. Admission and Anticipated Discharge Date Admission Date: January 05, 2023 Subjective Patient seen and examined at bedside as a follow-up of UTI, gram-negative bacteremia. Patient was lying in bed, on room air, NAD. Reports her strength and weakness getting better but he still feels some tired. Reports eating okay. Denies any new acute event overnight. Denies any fever or chills or headache or dizziness today. Denies any chest pain. Temperature getting better. Physical Exam Physical Exam: GENERAL: Alert and oriented x3. NAD, on RA. HEENT: No pallor, no icterus. Pupils equal, round and reactive to light. Oral mucosa moist. NECK: No JVD, no neck masses. HEART: S1 and S2 heard. Regular rate and rhythm. No murmur, no gallop. RESPIRATORY SYSTEM: Normal AP diameter. No accessory muscle use. No wheezing, no crackles. ABDOMEN: Soft, bowel sounds present, nontender, no distention. CENTRAL NERVOUS SYSTEM: No facial droop. Speech is clear. Obeys simple commands. Moves extremities. EXTREMITIES: Trace/1+ BLE edema, chronic BLE skin changes noted, no erythema seen. Results & Data Results & Data Vital Signs (Past 12 Hours) Vital Signs Temp Pulse Resp BP Pulse Ox O2 Del Method 01/07/23 15:02 37.1 C 103 H 16 114/62 97 Room Air 01/07/23 07:21 37.1 C 83 16 159/71 H 97 Room Air
[2023-01-07] MEDS: LORazepam 0.5 MG TAB PO SCH (20:04)
--- NOTE | 2023-01-07 22:35 | Electrocardiogram Report ---
Test Reason : Blood Pressure : / mmHG Vent. Rate : 078 BPM Atrial Rate : 078 BPM P-R Int : 158 ms QRS Dur : 078 ms QT Int : 364 ms P-R-T Axes : 065 -03 053 degrees QTc Int : 414 ms Normal sinus rhythm Septal infarct (cited on or before 14-JAN-2022) Abnormal ECG When compared with ECG of 16-AUG-2022 16:52, No significant change was found Confirmed by Haroldo Lunsford ([id number]) on 01/07/2023 10:35:24 PM Referred By: Darlene Vasquez Confirmed By:Haroldo Lunsford
[2023-01-08 07:06] LABS: Hematocrit (blood only) 27.3 % (37.0-47.0); Mean Corpuscular Hemoglobin 32.4 pg (25.0-34.0); Mean Corpuscular Volume 98.2 fL (80.0-100.0); Mean Platelet Volume 9.3 fL (9.4-12.4); Platelet Count 47 K/uL (130-400); RDW Coefficient of Variation 15.3 % (11.5-14.5); RDW Standard Deviation 55.3 fL (36.4-46.3); Red Blood Count 2.78 M/uL (4.20-5.40); White Blood Count 34.62 K/ul (4.8-10.8)
[2023-01-08 07:26] LABS: BUN Creatinine Ratio 41.7 (10-20); Calcium 8.3 mg/dl (8.6-10.3); Creatinine Clr Calc Pharmacy 40.2 ml/min; Est GFR (African American) 73.5 ml/min; Est GFR (Non-African American) 63.4 ml/min; Potassium 4.3 mmol/L (3.5-5.1)
[2023-01-08] MEDS: allopurinoL 100 MG TAB PO SCH (08:30)
[2023-01-08] MEDS: CITALOPRAM 20 MG TAB PO SCH (08:30)
[2023-01-08] MEDS: FAMOTIDINE 20 MG TAB PO SCH (08:31)
[2023-01-08 08:33] LABS: Basophils # (auto) 0.08 K/uL (0-0.2); Basophils % (auto) 0.2 %; Eosinophils # (auto) 0.01 K/uL (0-0.50); Immature Granulocytes # (auto) 0.03 K/uL (0.01-0.20); Immature Granulocytes % (auto) 0.1 %; Lymphocytes # (auto) 31.01 K/uL (1.2-3.4); Lymphocytes % (auto) 89.6 %; Monocytes # (auto) 1.71 K/uL (0.11-0.59); Monocytes % (auto) 4.9 %; Neutrophils # (auto) 1.78 K/uL (1.40-6.50); Neutrophils % (auto) 5.2 %; Polychromasia 1+
[2023-01-08] MEDS: cefTRIAXone SODIUM 2,000 MG in DEXTROSE 5% 50 ML IV SCH (11:22)
--- NOTE | 2023-01-08 17:59 | Hospitalist Progress Note ---
Date of Service January 08, 2023 Assessment & Plan (1) Weakness: (2) Fever and chills: (3) Chronic lymphocytic leukemia: (4) REZA (generalized anxiety disorder): (5) GERD (gastroesophageal reflux disease): Plan 87yoF with PMHx of significant for CLL s/p radiation currently on Venetoclax and rituximab, hypogammaglobulinemia on periodic IVIG treatments, chronic anemia (baseline hemoglobin 9-10), chronic thrombocytopenia, mild aortic regurgitation,anxiety/MDD, seronegative polyarthritis/osteoarthritis on chronic prednisone Rx, gout presented 01/05 with acute weakness/fevers/chills. She is being managed for the following: Weakness/Fevers/Chills Complicated UTI Gram-negative bacteremia/E. coli Pt presenting from home, brought in by her son for weakness, fevers and chills; has history of Pseudomonas infection Hx of recent wound in November being followed by the wound clinic on lower extremity Has CLL so WBC chronically elevated. UA suggestive of infection, urine culture with E. coli 01/06 echo reviewed 01/06 cefepime to 01/07 Rocephin, to oral in next 1 to 2 days Clinically much better and will continue with intravenous Rocephin for now Will change to oral prior to discharge PT OT have been requested-she needs more of PT before discharge CLL, hypogammaglobulinemia, chronic anemia, thrombocytopenia EPIC chart review shows she has complained of generalized weakness to her assistant laboratory director and there was concern related to her CLL CLL was not responding to ibrutinib and was switched in December 2022 to Venetoclax (started December 18, 2022 with increasing doses) and rituximab in 4 weeks. Pt states she has the venetoclax at home. Notes that 4 days ago she increased the dose of it from 50 mg to 100mg and believes her weakness might be related to that. Consider contacting son to bring in her nonformulary medications. Reached out to son, call couldn't connect x 2, will reach out again next feasible time. Follows with Dr. Otto from hematology, reached out to Dr otto via TT for recs on when to resume her meds and any other recs, awaiting reply. Discussed with Dr. Otto and will hold off any medications for CLL until the course of antibiotic is done Anxiety/MDD On celexa and lorazepam, continue seronegative polyarthritis/osteoarthritis on chronic prednisone Rx, continue Gout Continue allopurinol Edema Continue lasix GERD continue famotidine DVT prophylaxis: SCDs, Hx of thrombocytopenia, anemia Diet: Regular CODE STATUS:DNR/DNI Dispo: PT/OT, likely rehab, CM to assist with DC planning. Called pt's son Jay over the phone ([phone]) and left voicemail to call us back at the hospital for general update. Likely discharge tomorrow Admission and Anticipated Discharge Date Admission Date: January 05, 2023 Subjective 01/08/2023 The patient was seen and examined in medical floor She has been generally weak and lethargic but otherwise feels a lot better She still cannot get up from the chair without any assistance Was advised to continue PT and OT prior to discharge Review of Systems Review of Systems: All systems reviewed and are unremarkable except as noted below Physical Exam Physical Exam: Sitting on a chair without any acute distress Constitutional: + ill appearing and + thin Eyes: PERRL, conjunctivae normal, anicteric sclerae ENMT: external ear and nose normal, oropharynx normal Neck: trachea midline, no thyromegaly Respiratory: no respiratory distress Auscultation: + diminished lung sounds and + crackles (Occasional crackles at the bases) Cardiovascular: Rate/Rhythm: regular rate and regular rhythm; not tachycardic Heart Sounds: normal S1, normal S2 and + murmur Extremities: no edema Gastrointestinal (Abdomen): Inspection/Auscultation: normal bowel sounds; abdomen not distended Percussion/Palpation: abdomen soft; abdomen nontender Musculoskeletal: No acute arthritis involving any of the joint Neurologic: normal touch/pain/proprioception and moves all extremities; no focal motor deficits Remains generally weak and lethargic Lymphatic: no cervical or axillary lymphadenopathy Results & Data Results & Data Vital Signs (Past 12 Hours) Vital Signs Temp Pulse Resp BP Pulse Ox O2 Del Method 01/08/23 15:05 36.9 C 84 20 155/70 H 97 Room Air 01/08/23 07:54 37.2 C 84 18 140/62 95 Room Air Laboratory Results Short CBC 01/08/23 Range/Units 06:37 WBC 34.62 H* (4.8-10.8) K/ul Hgb 9.0 L (12.0-16.0) g/dl Hct 27.3 L (37.0-47.0) % Plt Count 47 L (130-400) K/uL BMP 01/08/23 06:37 Sodium 137 Potassium 4.3 Chloride 106 Carbon Dioxide 24 BUN 35 H Creatinine 0.84 Glucose 108 H Calcium 8.3 L Medications Administered Current Inpatient Medications Acetaminophen (Acetaminophen 325 Mg Tab) 650 mg PO Q4H PRN PRN Reason: pain/fever Stop: 02/04/23 16:23 Last Admin: 01/05/23 23:06 Dose: 650 mg Al Hydrox/Mg Hydrox/Simethicone (Aluminum/Magnesium Susp 30 Ml Udc) 30 ml PO Q6H PRN PRN Reason: Dyspepsia Stop: 02/04/23 16:23 Allopurinol (Allopurinol 100 Mg Tab) 100 mg PO QAM [facility] Stop: 02/05/23 08:59 Last Admin: 01/08/23 08:30 Dose: 100 mg Citalopram Hydrobromide (Citalopram 20 Mg Tab) 10 mg PO QAM [facility] Stop: 02/05/23 08:59 Last Admin: 01/08/23 08:30 Dose: 10 mg Diclofenac Sodium (Diclofenac Sod 1% Gel 100 Gm Tube) 2 gm EXT QID PRN; Protocol PRN Reason: Pain Stop: 02/04/23 20:32 Famotidine (Famotidine 20 Mg Tab) 20 mg PO DAILY [facility] Stop: 02/05/23 08:59 Last Admin: 01/08/23 08:31 Dose: 20 mg Ceftriaxone Sodium 2,000 mg/ (Dextrose) 70 mls @ 100 mls/hr IV Q24H [facility]; Protocol Stop: 01/21/23 11:59 Last Infusion: 01/08/23 12:11 Dose: Infused Lorazepam (Lorazepam 0.5 Mg Tab) 0.5 mg PO HS [facility] Stop: 02/04/23 20:59 Last Admin: 01/07/23 20:04 Dose: 0.5 mg Miscellaneous (Ammonium Lactate 12 % Cream ~ Order Awaiting Action) 1 each N/A QS [facility] Stop: 02/05/23 00:00 Last Admin: 01/08/23 15:51 Dose: Not Given Ondansetron HCl (Ondansetron Inj 2 Mg/Ml 2 Ml Vial) 4 mg IV Q6H PRN PRN Reason: Nausea Stop: 02/04/23 16:23 Polyethylene Glycol (Polyethylene (Miralax) 17 Gm Pack) 17 gm PO DAILY PRN PRN Reason: Constipation Stop: 02/04/23 16:23
[2023-01-08] MEDS: LORazepam 0.5 MG TAB PO SCH (20:37)
[2023-01-09] MEDS: allopurinoL 100 MG TAB PO SCH (08:49)
[2023-01-09] MEDS: CITALOPRAM 20 MG TAB PO SCH (08:49)
[2023-01-09] MEDS: FAMOTIDINE 20 MG TAB PO SCH (08:53)
[2023-01-09] MEDS ORDERED: CIPROFLOXACIN 500 MG TAB PO STA (13:07)
[2023-01-09] MEDS: cefTRIAXone SODIUM 2,000 MG in DEXTROSE 5% 50 ML IV SCH (13:20)
--- NOTE | 2023-01-09 13:40 | Hospitalist Progress Note ---
Date of Service January 09, 2023 Assessment & Plan (1) Weakness: (2) Fever and chills: (3) Chronic lymphocytic leukemia: (4) REZA (generalized anxiety disorder): (5) GERD (gastroesophageal reflux disease): Plan 87yoF with PMHx of significant for CLL s/p radiation currently on Venetoclax and rituximab, hypogammaglobulinemia on periodic IVIG treatments, chronic anemia (baseline hemoglobin 9-10), chronic thrombocytopenia, mild aortic regurgitation,anxiety/MDD, seronegative polyarthritis/osteoarthritis on chronic prednisone Rx, gout presented 01/05 with acute weakness/fevers/chills. She is being managed for the following: Weakness/Fevers/Chills Complicated UTI Gram-negative bacteremia/E. coli-Sepsis due to Escherichia coli [E. coli], POA Pt presenting from home, brought in by her son for weakness, fevers and chills; has history of Pseudomonas infection Hx of recent wound in November being followed by the wound clinic on lower extremity Has CLL so WBC chronically elevated. UA suggestive of infection, urine culture with E. coli 01/06 echo reviewed 01/06 cefepime to 01/07 Rocephin, to oral in next 1 to 2 days Clinically much better and will continue with intravenous Rocephin for now Will change to oral prior to discharge PT OT have been requested-she needs more of PT before discharge Appreciate ID input and recommendation Will get CT of the abdomen pelvis without contrast-mild left hydronephrosis with normal caliber ureter. No calculi. Mildly increased since prior exam. Etiology of this dilatation is not clear on this exam however this could reflect a UPJ type obstruction. Oral Cipro has been started and will finish the course of antibiotic for a total of 14 days CLL, hypogammaglobulinemia, chronic anemia, thrombocytopenia EPIC chart review shows she has complained of generalized weakness to her hemat ologist and there was concern related to her CLL CLL was not responding to ibrutinib and was switched in December 2022 to Venetoclax (started December 18, 2022 with increasing doses) and rituximab in 4 weeks. Pt states she has the venetoclax at home. Notes that 4 days ago she increased the dose of it from 50 mg to 100mg and believes her weakness might be related to that. Consider contacting son to bring in her nonformulary medications. Reached out to son, call couldn't connect x 2, will reach out again next feasible time. Follows with Dr. Otto from hematology, reached out to Dr otto via TT for recs on when to resume her meds and any other recs, awaiting reply. Discussed with Dr. Otto and will hold off any medications for CLL until the course of antibiotic is done Discussed with the patient about holding medications for CLL until the antibiotic course is done or seen by Dr. Otto Increased Troponin with decreasing trend Due to sepsis and demand Ischemia No ACS Anxiety/MDD On celexa and lorazepam, continue seronegative polyarthritis/osteoarthritis on chronic prednisone Rx, continue Gout Continue allopurinol Edema Continue lasix GERD continue famotidine DVT prophylaxis: SCDs, Hx of thrombocytopenia, anemia Diet: Regular CODE STATUS:DNR/DNI Dispo: PT/OT, likely rehab, CM to assist with DC planning. Called pt's son Jay over the phone ([phone]) and left voicemail to call us back at the hospital for general update. Likely discharge today Admission and Anticipated Discharge Date Admission Date: January 05, 2023 Subjective 01/08/2023 The patient was seen and examined in medical floor She has been generally weak and lethargic but otherwise feels a lot better She still cannot get up from the chair without any assistance Was advised to continue PT and OT prior to discharge 01/09/2023 The patient was seen and examined in medical floor She has been stable and denies any symptoms She has had physical therapy and recommended home Denies any fever, chills, nausea and or vomiting and no abdominal pain Review of Systems Review of Systems: All systems reviewed and are unremarkable except as noted below Physical Exam Physical Exam: Sitting on a chair without any acute distress Constitutional: + thin; not ill appearing Eyes: PERRL, conjunctivae normal, anicteric sclerae ENMT: external ear and nose normal, oropharynx normal Neck: trachea midline, no thyromegaly Respiratory: no respiratory distress Auscultation: + diminished lung sounds and + crackles (Occasional crackles at the bases) Cardiovascular: Rate/Rhythm: regular rate and regular rhythm; not tachycardic Heart Sounds: normal S1, normal S2 and + murmur Extremities: no edema Gastrointestinal (Abdomen): Inspection/Auscultation: normal bowel sounds; abdomen not distended Percussion/Palpation: abdomen soft; abdomen nontender Musculoskeletal: No acute arthritis involving any joint Skin: Generalized bruising seems to be chronic Neurologic: normal touch/pain/proprioception and moves all extremities; no focal motor deficits Lymphatic: no cervical or axillary lymphadenopathy Results & Data Results & Data Vital Signs (Past 12 Hours) Vital Signs Temp Pulse Resp BP Pulse Ox O2 Del Method 01/09/23 07:28 37.1 C 94 H 16 146/68 H 96 Room Air Medications Administered Current Inpatient Medications Acetaminophen (Acetaminophen 325 Mg Tab) 650 mg PO Q4H PRN PRN Reason: pain/fever Stop: 02/04/23 16:23 Last Admin: 01/05/23 23:06 Dose: 650 mg Al Hydrox/Mg Hydrox/Simethicone (Aluminum/Magnesium Susp 30 Ml Udc) 30 ml PO Q6H PRN PRN Reason: Dyspepsia Stop: 02/04/23 16:23 Allopurinol (Allopurinol 100 Mg Tab) 100 mg PO QAM [facility] Stop: 02/05/23 08:59 Last Admin: 01/09/23 08:49 Dose: 100 mg Citalopram Hydrobromide (Citalopram 20 Mg Tab) 10 mg PO QAM [facility] Stop: 02/05/23 08:59 Last Admin: 01/09/23 08:49 Dose: 10 mg Diclofenac Sodium (Diclofenac Sod 1% Gel 100 Gm Tube) 2 gm EXT QID PRN; Protocol PRN Reason: Pain Stop: 02/04/23 20:32 Famotidine (Famotidine 20 Mg Tab) 20 mg PO DAILY [facility] Stop: 02/05/23 08:59 Last Admin: 01/09/23 08:53 Dose: 20 mg Lorazepam (Lorazepam 0.5 Mg Tab) 0.5 mg PO HS [facility] Stop: 02/04/23 20:59 Last Admin: 01/08/23 20:37 Dose: 0.5 mg Miscellaneous (Ammonium Lactate 12 % Cream ~ Order Awaiting Action) 1 each N/A QS [facility] Stop: 02/05/23 00:00 Last Admin: 01/09/23 08:49 Dose: Not Given Polyethylene Glycol (Polyethylene (Miralax) 17 Gm Pack) 17 gm PO DAILY PRN PRN Reason: Constipation Stop: 02/04/23 16:23
--- NOTE | 2023-01-09 14:59 | CT Scan Report ---
CT OF THE ABDOMEN AND PELVIS WITHOUT CONTRAST CLINICAL HISTORY: r/o lesion with E coli Bacteremia. History of CLL. COMPARISON STUDY: CT of the abdomen and pelvis February 01, 2021. TECHNIQUE: Axial images of the abdomen and pelvis were obtained without IV contrast. Images were revi ewed in the axial, sagittal, and coronal planes. Automated exposure control was utilized for the elisabet dy. A dose lowering technique was utilized adhering to the principles of ALARA. FINDINGS: Numerous calcifications within the breasts are again noted. Trace bilateral pleural effusio ns. No pneumatosis, free air or portal venous gas is present. There is moderate dilatation of the lef t renal pelvis and mild left-sided calyceal dilatation. This has increased since prior CT. There is n o right hydronephrosis. The caliber of the left ureter is normal. No ureteral calculi are identified. There is mild bilateral perinephric stranding, greater on the left. Water attenuation bilateral barrett l lesions are suboptimally assessed on this unenhanced exam but favor cysts. A few suspected hepatic cysts are noted. Moderate splenomegaly has slightly increased. A 1.7 x 1.2 cm right external iliac no de has increased in size. There is no evidence for a bowel obstruction. Colonic diverticulosis is not ed without evidence for acute diverticulitis. Unenhanced images of the adrenal glands and pancreas ar e grossly unremarkable. Peripherally calcified density within the IVC is unchanged. Numerous old thor acic and lumbar spine compression fractures are unchanged. There are old pelvic fractures as well. Th ere are no femoral fractures. Suspicious osseous lesions. IMPRESSION: 1. Mild to moderate left hydronephrosis with normal caliber ureter. No ureteral calculi. This has mil dly increased since prior exam. The etiology for this dilatation is not clear on this exam however th is could reflect a UPJ type obstruction. 2. Slight increase in splenomegaly. Interval increase in size of a right external iliac lymph node. T he findings may be related to CLL. 3. No bowel obstruction. Colonic diverticulosis without evidence for acute diverticulitis. ACT 112: Negative or not required by law. Electronically signed by: Landen Zarco M.D. 01/09/2023 2:57 PM
--- NOTE | 2023-01-09 17:09 | Discharge Summary ---
Date of Service January 09, 2023 Admission HPI Per Admitting Provider 87yoF with PMHx of significant for CLL s/p radiation currently on Venetoclax and rituximab, 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 Has difficulty hearing, uses an ipad with speech recognition to help with communication. States that her son ( not present at bedside) was concerned about her increasing weakness with fevers and "shaking". Denies dysuria. States that her wound on her lower extremity has been inproving. Notes her Hx of CLL and states that she was started on a medication for that and would like to continue taking it. Notes that 4 days ago she increased the dose o f it from 50 mg to 100mg and believes her weakness might be related to that. Unsure of the exact name. States she was promised by Dr. Otto that she would not have to go to the hospital. Started crying after she made that statement. She is AAOx3. Admission Exam Per Admitting Provider Physical Exam: General: Alert, orientedx3. Occasional crying spells Skin: Psych: Labile mood and affect Neuro: No gross deficits HEENT: NC/AT Chest: Nontender to palpation. CV: RRR Resp: Breath sounds clear bilaterally, no increased effort of breathing. Abdomen: Soft, nontender, nondistended. Extremities: edema in extremities bilaterally. Principal Diagnosis Sepsis due to E. coli bacteremia, generalized weakness, chronic lymphocytic leukemia Discharge Exam Sitting on a chair without any acute distress Constitutional + thin; not ill appearing Eyes PERRL, conjunctivae normal, anicteric sclerae ENMT external ear and nose normal, oropharynx normal Neck trachea midline, no thyromegaly Respiratory no respiratory distress Auscultation: + diminished lung sounds and + crackles (Occasional crackles at the bases) Cardiovascular Rate/Rhythm: regular rate and regular rhythm; not tachycardic Heart Sounds: normal S1, normal S2 and + murmur Extremities: no edema Gastrointestinal (Abdomen) Inspection/Auscultation: normal bowel sounds; abdomen not distended Percussion/Palpation: abdomen soft; abdomen nontender Neurologic normal touch/pain/proprioception and moves all extremities; no focal motor deficits Lymphatic no cervical or axillary lymphadenopathy Discharge Data Allergies Allergy/AdvReac Type Severity Reaction Status Date / Time Cephalosporins Allergy Unknown UNKNOWN Verified 11/06/22 09:30 mirabegron Allergy Unknown Unknown Verified 11/06/22 09:30 nitrofurantoin Allergy Unknown UNKNOWN Verified 11/06/22 09:30 oxaprozin Allergy Unknown UNKNOWN Verified 11/06/22 09:30 oxybutynin Allergy Unknown UNKNOWN Verified 11/06/22 09:30 Consultations 01/05/23 15:02 ED Decision to Admit Stat 01/06/23 09:37 Consult Infectious Diseases Routine Ordered Studies 01/05/23 13:36 CT head/brain wo con Stat 01/09/23 13:05 CT Abd and Pelvis [CT abd pelvis wo con] Urgent Hospital Course (1) Weakness: (2) Fever and chills: (3) Chronic lymphocytic leukemia: (4) REZA (generalized anxiety disorder): (5) GERD (gastroesophageal reflux disease): Plan 87yoF with PMHx of significant for CLL s/p radiation currently on Venetoclax and rituximab, hypogammaglobulinemia on periodic IVIG treatments, chronic anemia (baseline hemoglobin 9-10), chronic thrombocytopenia, mild aortic regurgitation,anxiety/MDD, seronegative polyarthritis/osteoarthritis on chronic prednisone Rx, gout presented 01/05 with acute weakness/fevers/chills. She is being managed for the following: Weakness/Fevers/Chills Complicated UTI Gram-negative bacteremia/E. coli-Sepsis due to Escherichia coli [E. coli], POA Pt presenting from home, brought in by her son for weakness, fevers and chills; has history of Pseudomonas infection Hx of recent wound in November being followed by the wound clinic on lower extremity Has CLL so WBC chronically elevated. UA suggestive of infection, urine culture with E. coli 01/06 echo reviewed 01/06 cefepime to 01/07 Rocephin, to oral in next 1 to 2 days Clinically much better and will continue with intravenous Rocephin for now Will change to oral prior to discharge PT OT have been requested-she needs more of PT before discharge Appreciate ID input and recommendation Will get CT of the abdomen pelvis without contrast-mild left hydronephrosis with normal caliber ureter. No calculi. Mildly increased since prior exam. Etiology of this dilatation is not clear on this exam however this could reflect a UPJ type obstruction. Oral Cipro has been started and will finish the course of antibiotic for a total of 14 days CLL, hypogammaglobulinemia, chronic anemia, thrombocytopenia EPIC chart review shows she has complained of generalized weakness to her head of ict and there was concern related to her CLL CLL was not responding to ibrutinib and was switched in December 2022 to Venetoclax (started December 18, 2022 with increasing doses) and rituximab in 4 weeks. Pt states she has the venetoclax at home. Notes that 4 days ago she increased the dose of it from 50 mg to 100mg and believes her weakness might be related to that. Consider contacting son to bring in her nonformulary medications. Reached out to son, call couldn't connect x 2, will reach out again next feasible time. Follows with Dr. Otto from hematology, reached out to Dr otto via TT for recs on when to resume her meds and any other recs, awaiting reply. Discussed with Dr. Otto and will hold off any medications for CLL until the course of antibiotic is done Discussed with the patient about holding medications for CLL until the antibiotic course is done or seen by Dr. Otto Increased Troponin with decreasing trend Due to sepsis and demand Ischemia No ACS Anxiety/MDD On celexa and lorazepam, continue seronegative polyarthritis/osteoarthritis on chronic prednisone Rx, continue Gout Continue allopurinol Edema Continue lasix GERD continue famotidine DVT prophylaxis: SCDs, Hx of thrombocytopenia, anemia Diet: Regular CODE STATUS:DNR/DNI Dispo: PT/OT, likely rehab, CM to assist with DC planning. Called pt's son Jay over the phone ([phone]) and left voicemail to call us back at the hospital for general update. Likely discharge today Total Time Total Time Spent Total Time Spent (In Minutes): 35 minutes Discharge Plan Discharge Items Patient Disposition: Home - Self-Care Reason For Visit: WEAKNESS Discharge Diagnosis: Sepsis due to E. coli bacteremia, generalized weakness, chronic lymphocytic leukemia Condition on Discharge: Fair Activity: Resume your previous activity Non-emergency contact: Primary Care Provider Call non-emergency contact if: you have any medication questions and your symptoms worsen Follow-up/Referrals: Willem Estrada MD [Primary Care Provider] - (Date & Time 01/14/2023 11:00 AM Provider Sergey Foster PA-C Department General Internal Medicine [facility] ) Diet: Regular Addtl Attending Provider Instructions: Please take precautions to avoid falls Finish the course of antibiotic as advised Do not restart your medications for CLL until the antibiotic course is finished Keep appointment with Dr. Otto and your primary care provider A repeat follow-up CT of the abdomen and pelvis should be done in about 3 months to evaluate any further UPJ obstruction Please hold your Celexa and nausea medicine as long as you are on ciprofloxacin You can try [id number] probiotics to prevent C. difficile colitis Pending Studies at Discharge: No Stand-Alone Forms: [employer], Smoking Cessation Medications and DC Order Prescriptions: New ciprofloxacin HCl [Cipro] 500 mg tablet 500 mg PO BID Qty: 20 0RF Continued citalopram 10 mg Tablet 10 mg PO QAM lorazepam 0.5 mg Tablet 0.5 mg PO HS calcium citrate-vitamin D3 250 mg calcium- 200 unit Tablet 1 tab PO QAM multivitamin Tablet 1 tab PO QAM prednisone 5 mg tablet 5 mg PO UD Rx Instructions: on hold until finished with tapering dose famotidine 20 mg Tablet 20 mg PO DAILY cyanocobalamin (vitamin B-12) 1,000 mcg/mL Solution 1,000 mcg IM MONTHLY ondansetron HCl 4 mg tablet 4 mg PO Q6H PRN (Reason: Nausea) allopurinol 100 mg tablet 100 mg PO QAM furosemide 20 mg tablet 20 mg PO DAILY PRN (Reason: swelling) potassium chloride [Klor-Con M10] 10 mEq tablet,ER particles/crystals 10 meq PO DAILY PRN (Reason: Only if taking Lasix) Venclexta 100 mg Tablet 100 mg PO DAILY diclofenac sodium 1 % gel 2 g TOPICAL QID PRN (Reason: Pain) ammonium lactate 12 % cream 1 applic TOPICAL . NEEDED PRN (Reason: dry skin,arms and legs) Discharge Orders: Discharge Order (Routine); Ordered 01/09/23 Ordered By: Kit Small Admission Data Admit Date/Time: 01/05/23 18:06 Attending Provider: Kit Small Admit Provider: Lindsey Will Primary Care Provider: Willem Estrada Other Providers: Johann Bishop ; Almas Wilkins ; Go Cowan ; Wes Gómez I. ; John Goel II ; Cynthia Will ; Ji Jeffrey ; Shane Rodriguez ; Garcia Junior ; Bety Batres Other Interventions: Discharge Summary Assessment (RN) Last Done: 01/09/23 16:01
== END 2023-01-09 17:22 | disposition home or self-care (01) | DRG 872 ==
LOC: ED 12:31 → SUATTDRO 18:06 → 2E 18:06 → 3W 01-06 17:59

== ENCOUNTER 2023-01-17 14:52 | Observation (INO) ==
[2023-01-17] MEDS ORDERED: SODIUM CHLORIDE 0.9% 1000ML 1,000 ML IV SCH (16:00)
[2023-01-17] MEDS ORDERED: cefTRIAXone SODIUM 2,000 MG/70 ML BAG IV STA (16:13)
[2023-01-17 16:18] LABS: Alanine Aminotransferase 26 U/L (7-52); Albumin Globulin Ratio 0.9 (0.9-2); Albumin Level 3.6 gm/dl (3.4-5.0); Alkaline Phosphatase 118 U/L (34-104); Anion Gap 10 (3-11); Aspartate Aminotransferase 26 U/L (13-39); BUN Creatinine Ratio 36.5 (10-20); Bilirubin,Total 0.6 mg/dl (0.2-1.0); Blood Urea Nitrogen 42 mg/dl (6-23); Carbon Dioxide 24 mmol/L (21-32); Chloride 101 mmol/L (98-107); Est GFR (African American) 50.2 ml/min; Est GFR (Non-African American) 43.4 ml/min; Glucose 144 mg/dl (70-99(Fasting)); Magnesium 2.1 mg/dl (1.7-2.4); Potassium 5.2 mmol/L (3.5-5.1); Sodium 135 mmol/L (136-145); Total Protein 7.6 gm/dl (6.0-8.3)
--- NOTE | 2023-01-17 16:18 | Emergency Department Note ---
Impression & Plan Weakness, Chronic lymphocytic leukemia, Confusion, Leukocytosis ED Provider Note NAME: TONY DOYLE AGE: 87 SEX: F : 1935 ARRIVES VIA: Walk-In INFORMANT: [Patient][son] ED PROVIDER(S): [Jaime Gonzalez MD] CHIEF COMPLAINT: Urinary symptoms HISTORY OF PRESENT ILLNESS: The patient is an 87-year-old female who presents to the ER with some confusion. She also has pain on the right side of her abdomen. The patient is currently on Cipro. She has been on this since discharge from the hospital on the sixth, 8 days ago. She was in the hospital for E. coli sepsis. As per the son, the patient is starting to run a low-grade fever. Since discharge from the hospital, she was at [facility] outpatient center and had a work-up for PE, this was negative. Because of the confusion, the fever, the recent admission, the son was concerned for return of sepsis or infection. They present for evaluation. PMHx/PSHx: See Below SOCIAL HISTORY: See Below. PHYSICAL EXAM: GENERAL: Patient is in no acute distress. HEENT: No acute trauma, normocephalic atraumatic, mucous membranes moist, no n gala congestion. NECK: No stridor, no adenopathy, no meningismus, trachea is midline. LUNGS: Clear to auscultation bilaterally, no wheeze, no rhonchi, breath sounds equal. HEART: Without murmurs gallops or rubs, regular rate and rhythm. ABDOMEN: Soft, nontender, bowel sounds positive and quite hyperactive, no peritonitis. Mild abdominal distention noted EXTREMITIES: No cyanosis or edema, chronic skin change noted to the lower extremities, full range of motion of all the joints without pain or difficulty, no signs for acute trauma. NEUROLOGIC: Awake and alert, no acute motor or sensory deficits, no focal weakness. SKIN: No rash, no jaundice, no diaphoresis. DIFFERENTIAL DIAGNOSIS: Sepsis or bacteremia, UTI, hydronephrosis, pyelonephritis, diverticulitis, renal or liver failure, medication reaction, among others. EMERGENCY DEPARTMENT COURSE/PROCEDURES: Prior/Outside records reviewed: Recent discharge summary ECG per my interpretation: Indication was possible sepsis. The ECG shows a normal sinus rhythm with a rate of 78. There is a potential old septal infarct. There is no ST elevation, no PVCs. LVH is present. The QTc is 424. Continuous Cardiac Monitoring per my interpretation: An order was placed for continuous cardiac monitoring. The monitor shows a rate of 91 with normal sinus rhythm. MEDICAL DECISION MAKING: There is a significant leukocytosis at 52,000, the patient does have a CLL history. Her white count today is above her recent baseline. Hemoglobin was low at 9.9, the patient carries a history of anemia. There was a normal platelet count. No coagulopathy. Potassium slightly high at 5.2, no need for emergent correction. No renal failure. Lactic acid level is not elevated making severe sepsis less likely. No concerning liver enzyme elevation. Procalcitonin level is somewhat elevated, this would be consistent with potential bacterial infection. ECG shows a normal sinus rhythm, no ischemia. Cardiac enzyme testing x1 is not consistent with acute cardiac injury. Patient appears to be in a euthyroid state. Urinalysis does not show infection. COVID test returned negative. Chest film per my review does not show mediastinal widening, pneumonia or pneumothorax. Abdominal and pelvis CT does not show any findings of diverticulitis or colitis. No bowel obstruction. Constipation was seen. Some chronic changes on the CT were noted. Patient received IV ceftriaxone as antibiotic coverage. She received 1 L of IV saline. I spoke to the patient's son, the patient and her caregiver. They do not feel she is safe for discharge home. They are concerned about the low-grade fevers, her confusion and weakness. The cause for her entire presentation is unclear although, I wonder if the Cipro may be causing some of her confusion. The abdominal pain may potentially be from her constipation. I spoke with case management, the on-call hospitalist was consulted. DISPOSITION: Patient's presentation and findings warrant a hospital stay. Past Med/Surg History Medical History Anemia Chronic lymphocytic leukemia Closed rib fracture Closed tibia fracture Diverticulosis of colon Dyslipidemia Fracture of spine REZA (generalized anxiety disorder) GERD (gastroesophageal reflux disease) History of squamous cell carcinoma Hypogammaglobulinemia, acquired Osteoarthritis Osteoporosis Stress reaction Symptomatic anemia Surgical History History of orthopedic surgery Status post hysterectomy Family History Other Cancer Diabetes Heart disease Social History Smoking Status: Never smoker Second Hand Exposure: No; Do You Dip or Chew Tobacco: No; Hx Alcohol Use: Yes Alcohol type: beer Hx Substance Use: No Preferred Language: Japanese Communication Ability: Effective Communication Ability Comment: Very hard of hearing 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 Beliefs That Will Affect Care: None marital status: / Current Living Situation: Family Current Living Situation Comment: personal care givers Feels Safe at Home: Yes Assistive Devices: None Allergies Allergies Allergy/AdvReac Type Severity Reaction Status Date / Time Cephalosporins Allergy Unknown UNKNOWN Verified 01/17/23 19:39 mirabegron Allergy Unknown Unknown Verified 01/17/23 19:39 nitrofurantoin Allergy Unknown UNKNOWN Verified 01/17/23 19:39 oxaprozin Allergy Unknown UNKNOWN Verified 01/17/23 19:39 oxybutynin Allergy Unknown UNKNOWN Verified 01/17/23 19:39 ciprofloxacin [From Cipro] AdvReac Intermediate Confusion Verified 01/17/23 21:48 Home Meds Home Medications Medication Instructions Recorded Confirmed calcium citrate 250 mg 1 tab PO QAM 05/18/18 01/17/23 calcium-vitamin D3 5 mcg (200 unit) tablet citalopram 10 mg tablet 10 mg PO QAM 05/18/18 01/17/23 lorazepam 0.5 mg tablet 0.5 mg PO HS 05/18/18 01/17/23 multivitamin 1 tab PO QAM 11/10/18 01/17/23 prednisone 5 mg tablet 5 mg PO UD 11/10/18 01/17/23 diclofenac sodium 1 % topical gel 2 g topical QID PRN Pain 02/20/21 01/17/23 cyanocobalamin (vitamin B-12) 1,000 mcg IM MONTHLY 01/14/22 01/17/23 1,000 mcg/mL injection solution famotidine 20 mg tablet 20 mg PO DAILY 01/14/22 01/17/23 ammonium lactate 12 % topical cream 1 applic topical . NEEDED PRN 08/16/22 01/17/23 dry skin,arms and legs allopurinol 100 mg tablet 100 mg PO QAM 01/05/23 01/17/23 furosemide 20 mg tablet 20 mg PO DAILY PRN swelling 01/05/23 01/17/23 ondansetron HCl 4 mg tablet 4 mg PO Q6H PRN Nausea 01/05/23 01/17/23 potassium chloride 10 mEq 10 meq PO DAILY PRN Only if taking 01/05/23 01/17/23 tablet,extended Lasix release(part/cryst) (Klor-Con M) venetoclax 100 mg tablet 100 mg PO DAILY 01/05/23 01/17/23 (Venclexta) Previous Rx's Medication Instructions Recorded ciprofloxacin HCl 500 mg tablet 500 mg PO BID #20 tabs 01/09/23 (Cipro) Results & Data (ED) Vital Signs Vital Signs - 24 hr 01/17/23 15:01 01/17/23 16:00 01/17/23 16:00 Temperature 36.7 C Temperature Source Temporal Artery Scan Pulse Rate 100 H 80 Pulse Rate [Apical] Pulse Rate from SpO2 Sensor Pulse Rhythm Regular Regular Pulse Strength Normal Respiratory Rate 20 18 Respiratory Effort / Characteristics Non-Labored Spontaneous Respiratory Depth Normal Respiratory Pattern Regular Blood Pressure 104/62 Blood Pressure [Left Arm] 123/80 Blood Pressure Mean 76 Blood Pressure Mean [Left Arm] 94 Blood Pressure Position Sitting Pulse Oximetry 95 99 Oxygen Delivery Method Room Air Room Air Sepsis Recent Fever Within 48 Hours Yes Sepsis New/Unexplained Change in Mental Status No Sepsis Action Taken by Nursing No Action Required 01/17/23 16:33 01/17/23 14:52 01/17/23 18:15 Temperature 36.9 C Temperature Source Oral Pulse Rate 79 Pulse Rate [Apical] 82 Pulse Rate from SpO2 Sensor Pulse Rhythm Pulse Strength Respiratory Rate 19 Respiratory Effort / Characteristics Respiratory Depth Normal Respiratory Pattern Blood Pressure Blood Pressure [Left Arm] 125/68 Blood Pressure Mean Blood Pressure Mean [Left Arm] 87 Blood Pressure Position Pulse Oximetry 94 96 Oxygen Delivery Method Room Air Sepsis Recent Fever Within 48 Hours Sepsis New/Unexplained Change in Mental Status Sepsis Action Taken by Nursing 01/17/23 16:31 01/17/23 16:40 01/17/23 16:50 Temperature Temperature Source Pulse Rate 78 77 76 Pulse Rate [Apical] Pulse Rate from SpO2 Sensor 78 77 76 Pulse Rhythm Pulse Strength Respiratory Rate 22 21 19 Respiratory Effort / Characteristics Respiratory Depth Respiratory Pattern Blood Pressure Blood Pressure [Left Arm] Blood Pressure Mean Blood Pressure Mean [Left Arm] Blood Pressure Position Pulse Oximetry 97 98 97 Oxygen Delivery Method Sepsis Recent Fever Within 48 Hours Sepsis New/Unexplained Change in Mental Status Sepsis Action Taken by Nursing 01/17/23 17:00 01/17/23 17:10 01/17/23 17:20 Temperature Temperature Source Pulse Rate 78 76 76 Pulse Rate [Apical] Pulse Rate from SpO2 Sensor 78 76 76 Pulse Rhythm Pulse Strength Respiratory Rate 24 20 24 Respiratory Effort / Characteristics Respiratory Depth Respiratory Pattern Blood Pressure Blood Pressure [Left Arm] Blood Pressure Mean Blood Pressure Mean [Left Arm] Blood Pressure Position Pulse Oximetry 97 98 98 Oxygen Delivery Method Sepsis Recent Fever Within 48 Hours Sepsis New/Unexplained Change in Mental Status Sepsis Action Taken by Nursing 01/17/23 17:30 01/17/23 17:40 01/17/23 17:50 Temperature Temperature Source Pulse Rate 76 77 77 Pulse Rate [Apical] Pulse Rate from SpO2 Sensor 77 77 78 Pulse Rhythm Pulse Strength Respiratory Rate 19 19 18 Respiratory Effort / Characteristics Respiratory Depth Respiratory Pattern Blood Pressure Blood Pressure [Left Arm] Blood Pressure Mean Blood Pressure Mean [Left Arm] Blood Pressure Position Pulse Oximetry 97 97 97 Oxygen Delivery Method Sepsis Recent Fever Within 48 Hours Sepsis New/Unexplained Change in Mental Status Sepsis Action Taken by Nursing 01/17/23 18:00 01/17/23 18:17 01/17/23 18:17 Temperature Temperature Source Pulse Rate 77 82 Pulse Rate [Apical] Pulse Rate from SpO2 Sensor 77 82 Pulse Rhythm Pulse Strength Respiratory Rate 21 18 Respiratory Effort / Characteristics Respiratory Depth Respiratory Pattern Blood Pressure 125/68 Blood Pressure [Left Arm] Blood Pressure Mean 87 Blood Pressure Mean [Left Arm] Blood Pressure Position Pulse Oximetry 97 96 Oxygen Delivery Method Sepsis Recent Fever Within 48 Hours Sepsis New/Unexplained Change in Mental Status Sepsis Action Taken by Nursing 01/17/23 18:20 01/17/23 18:30 01/17/23 18:57 Temperature Temperature Source Pulse Rate 81 77 89 Pulse Rate [Apical] Pulse Rate from SpO2 Sensor 80 78 89 Pulse Rhythm Pulse Strength Respiratory Rate 20 19 24 Respiratory Effort / Characteristics Respiratory Depth Respiratory Pattern Blood Pressure 118/88 Blood Pressure [Left Arm] Blood Pressure Mean 98 Blood Pressure Mean [Left Arm] Blood Pressure Position Pulse Oximetry 96 96 96 Oxygen Delivery Method Room Air Sepsis Recent Fever Within 48 Hours Sepsis New/Unexplained Change in Mental Status Sepsis Action Taken by Nursing 01/17/23 19:00 01/17/23 19:30 01/17/23 20:00 Temperature Temperature Source Pulse Rate 91 H 86 88 Pulse Rate [Apical] Pulse Rate from SpO2 Sensor 86 88 Pulse Rhythm Pulse Strength Respiratory Rate 21 18 17 Respiratory Effort / Characteristics Respiratory Depth Respiratory Pattern Blood Pressure 138/68 131/68 135/67 Blood Pressure [Left Arm] Blood Pressure Mean 91 89 89 Blood Pressure Mean [Left Arm] Blood Pressure Position Pulse Oximetry 98 96 97 Oxygen Delivery Method Room Air Room Air Room Air Sepsis Recent Fever Within 48 Hours Sepsis New/Unexplained Change in Mental Status Sepsis Action Taken by Nursing 01/17/23 20:30 01/17/23 21:00 01/17/23 21:30 Temperature Temperature Source Pulse Rate 85 81 89 Pulse Rate [Apical] Pulse Rate from SpO2 Sensor 81 89 Pulse Rhythm Pulse Strength Respiratory Rate 19 17 20 Respiratory Effort / Characteristics Respiratory Depth Respiratory Pattern Blood Pressure 136/75 136/69 161/86 H Blood Pressure [Left Arm] Blood Pressure Mean 95 91 111 Blood Pressure Mean [Left Arm] Blood Pressure Position Pulse Oximetry 95 97 96 Oxygen Delivery Method Room Air Room Air Room Air Sepsis Recent Fever Within 48 Hours Sepsis New/Unexplained Change in Mental Status Sepsis Action Taken by Intermediate Medications Current Medication List: was personally reviewed by me Laboratory Data Attestation: I reviewed the patient's lab results. 01/17/23 15:39 01/17/23 15:39 Lab Results 01/17/23 01/17/23 01/17/23 Range/Units 15:39 15:39 15:39 WBC 52.61 H* (4.8-10.8) K/ul RBC 3.09 L (4.20-5.40) M/uL Hgb 9.9 L (12.0-16.0) g/dl Hct 31.4 L (37.0-47.0) % MCV 101.6 H (80.0-100.0) fL MCH 32.0 (25.0-34.0) pg MCHC 31.5 L (32.0-36.0) g/dL RDW Std Deviation 53.0 H (36.4-46.3) fL RDW Coeff of [place] 14.4 (11.5-14.5) % Plt Count 134 (130-400) K/uL MPV 9.9 (9.4-12.4) fL Immature Gran % (Auto) 0.3 % Neut % (Auto) 13.2 % Lymph % (Auto) 84.9 % [place] % (Auto) 1.6 % Eos % (Auto) 0.0 % Baso % (Auto) 0.0 % Neut # (Auto) 6.91 H (1.40-6.50) K/uL Lymph # (Auto) 44.66 H (1.2-3.4) K/uL [place] # (Auto) 0.86 H (0.11-0.59) K/uL Eos # (Auto) 0.00 (0-0.50) K/uL Baso # (Auto) 0.02 (0-0.2) K/uL Immature Gran # (Auto) 0.16 (0.01-0.20) K/uL PT Cancelled INR Cancelled APTT Cancelled PTT Ratio Cancelled Sodium (136-145) mmol/L Potassium (3.5-5.1) mmol/L Chloride (98-107) mmol/L Carbon Dioxide (21-32) mmol/L Anion Gap (3-11) BUN (6-23) mg/dl Creatinine (0.6-1.2) mg/dl Est Cr Clr Drug Dosing Est GFR ( Amer) ml/min Est GFR (Non-Af Amer) ml/min BUN/Creatinine Ratio (10-20) Glucose (70-99(Fasting)) mg/dl Lactate 1.4 (0.4-2.0) mmol/L Calcium (8.6-10.3) mg/dl Magnesium (1.7-2.4) mg/dl Total Bilirubin (0.2-1.0) mg/dl AST (13-39) U/L ALT (7-52) U/L Alkaline Phosphatase (34-104) U/L Troponin I High Sens (0-14) pg/ml Total Protein (6.0-8.3) gm/dl Albumin (3.4-5.0) gm/dl Globulin (2.5-4.0) gm/dl Albumin/Globulin Ratio (0.9-2) Procalcitonin (0-0.5) ng/ml TSH (0.300-4.500) uIu/ml Urine Color Urine Appearance (Clear) Urine pH (4.5-7.5) Ur Specific [place] (1.000-1.030) Urine Protein (Negative) Urine Glucose (UA) (Negative) Urine Ketones (Negative) Urine Blood (Negative) Urine Nitrite (Negative) Urine Bilirubin (Negative) Urine Urobilinogen (Negative) Ur Leukocyte Esterase (Negative) SARS-CoV-2, RNA, NAAT (NEGATIVE) 01/17/23 01/17/23 01/17/23 Range/Units 15:39 15:39 16:40 WBC (4.8-10.8) K/ul RBC (4.20-5.40) M/uL Hgb (12.0-16.0) g/dl Hct (37.0-47.0) % MCV (80.0-100.0) fL MCH (25.0-34.0) pg MCHC (32.0-36.0) g/dL RDW Std Deviation (36.4-46.3) fL RDW Coeff of [place] (11.5-14.5) % Plt Count (130-400) K/uL MPV (9.4-12.4) fL Immature Gran % (Auto) % Neut % (Auto) % Lymph % (Auto) % [place] % (Auto) % Eos % (Auto) % Baso % (Auto) % Neut # (Auto) (1.40-6.50) K/uL Lymph # (Auto) (1.2-3.4) K/uL [place] # (Auto) (0.11-0.59) K/uL Eos # (Auto) (0-0.50) K/uL Baso # (Auto) (0-0.2) K/uL Immature Gran # (Auto) (0.01-0.20) K/uL PT INR APTT PTT Ratio Sodium 135 L (136-145) mmol/L Potassium 5.2 H (3.5-5.1) mmol/L Chloride 101 (98-107) mmol/L Carbon Dioxide 24 (21-32) mmol/L Anion Gap 10 (3-11) BUN 42 H (6-23) mg/dl Creatinine 1.15 (0.6-1.2) mg/dl Est Cr Clr Drug Dosing Not Reportable Est GFR ( Amer) 50.2 ml/min Est GFR (Non-Af Amer) 43.4 ml/min BUN/Creatinine Ratio 36.5 H (10-20) Glucose 144 H (70-99(Fasting)) mg/dl Lactate (0.4-2.0) mmol/L Calcium 9.0 (8.6-10.3) mg/dl Magnesium 2.1 (1.7-2.4) mg/dl Total Bilirubin 0.6 (0.2-1.0) mg/dl AST 26 (13-39) U/L ALT 26 (7-52) U/L Alkaline Phosphatase 118 H (34-104) U/L Troponin I High Sens 6.9 (0-14) pg/ml Total Protein 7.6 (6.0-8.3) gm/dl Albumin 3.6 (3.4-5.0) gm/dl Globulin 4.0 (2.5-4.0) gm/dl Albumin/Globulin Ratio 0.9 (0.9-2) Procalcitonin 1.69 H (0-0.5) ng/ml TSH (0.300-4.500) uIu/ml Urine Color Urine Appearance (Clear) Urine pH (4.5-7.5) Ur Specific [place] (1.000-1.030) Urine Protein (Negative) Urine Glucose (UA) (Negative) Urine Ketones (Negative) Urine Blood (Negative) Urine Nitrite (Negative) Urine Bilirubin (Negative) Urine Urobilinogen (Negative) Ur Leukocyte Esterase (Negative) SARS-CoV-2, RNA, NAAT (NEGATIVE) 01/17/23 01/17/23 01/17/23 Range/Units 16:40 17:24 17:25 WBC (4.8-10.8) K/ul RBC (4.20-5.40) M/uL Hgb (12.0-16.0) g/dl Hct (37.0-47.0) % MCV (80.0-100.0) fL MCH (25.0-34.0) pg MCHC (32.0-36.0) g/dL RDW Std Deviation (36.4-46.3) fL RDW Coeff of [place] (11.5-14.5) % Plt Count (130-400) K/uL MPV (9.4-12.4) fL Immature Gran % (Auto) % Neut % (Auto) % Lymph % (Auto) % [place] % (Auto) % Eos % (Auto) % Baso % (Auto) % Neut # (Auto) (1.40-6.50) K/uL Lymph # (Auto) (1.2-3.4) K/uL [place] # (Auto) (0.11-0.59) K/uL Eos # (Auto) (0-0.50) K/uL Baso # (Auto) (0-0.2) K/uL Immature Gran # (Auto) (0.01-0.20) K/uL PT 11.3 INR 1.0 APTT 27.9 PTT Ratio 1.0 Sodium (136-145) mmol/L Potassium (3.5-5.1) mmol/L Chloride (98-107) mmol/L Carbon Dioxide (21-32) mmol/L Anion Gap (3-11) BUN (6-23) mg/dl Creatinine (0.6-1.2) mg/dl Est Cr Clr Drug Dosing Est GFR ( Amer) ml/min Est GFR (Non-Af Amer) ml/min BUN/Creatinine Ratio (10-20) Glucose (70-99(Fasting)) mg/dl Lactate 1.4 (0.4-2.0) mmol/L Calcium (8.6-10.3) mg/dl Magnesium (1.7-2.4) mg/dl Total Bilirubin (0.2-1.0) mg/dl AST (13-39) U/L ALT (7-52) U/L Alkaline Phosphatase (34-104) U/L Troponin I High Sens (0-14) pg/ml Total Protein (6.0-8.3) gm/dl Albumin (3.4-5.0) gm/dl Globulin (2.5-4.0) gm/dl Albumin/Globulin Ratio (0.9-2) Procalcitonin (0-0.5) ng/ml TSH 0.861 (0.300-4.500) uIu/ml Urine Color Urine Appearance (Clear) Urine pH (4.5-7.5) Ur Specific [place] (1.000-1.030) Urine Protein (Negative) Urine Glucose (UA) (Negative) Urine Ketones (Negative) Urine Blood (Negative) Urine Nitrite (Negative) Urine Bilirubin (Negative) Urine Urobilinogen (Negative) Ur Leukocyte Esterase (Negative) SARS-CoV-2, RNA, NAAT (NEGATIVE) 01/17/23 01/17/23 Range/Units 17:50 18:10 WBC (4.8-10.8) K/ul RBC (4.20-5.40) M/uL Hgb (12.0-16.0) g/dl Hct (37.0-47.0) % MCV (80.0-100.0) fL MCH (25.0-34.0) pg MCHC (32.0-36.0) g/dL RDW Std Deviation (36.4-46.3) fL RDW Coeff of [place] (11.5-14.5) % Plt Count (130-400) K/uL MPV (9.4-12.4) fL Immature Gran % (Auto) % Neut % (Auto) % Lymph % (Auto) % [place] % (Auto) % Eos % (Auto) % Baso % (Auto) % Neut # (Auto) (1.40-6.50) K/uL Lymph # (Auto) (1.2-3.4) K/uL [place] # (Auto) (0.11-0.59) K/uL Eos # (Auto) (0-0.50) K/uL Baso # (Auto) (0-0.2) K/uL Immature Gran # (Auto) (0.01-0.20) K/uL PT INR APTT PTT Ratio Sodium (136-145) mmol/L Potassium (3.5-5.1) mmol/L Chloride (98-107) mmol/L Carbon Dioxide (21-32) mmol/L Anion Gap (3-11) BUN (6-23) mg/dl Creatinine (0.6-1.2) mg/dl Est Cr Clr Drug Dosing Est GFR ( Amer) ml/min Est GFR (Non-Af Amer) ml/min BUN/Creatinine Ratio (10-20) Glucose (70-99(Fasting)) mg/dl Lactate (0.4-2.0) mmol/L Calcium (8.6-10.3) mg/dl Magnesium (1.7-2.4) mg/dl Total Bilirubin (0.2-1.0) mg/dl AST (13-39) U/L ALT (7-52) U/L Alkaline Phosphatase (34-104) U/L Troponin I High Sens (0-14) pg/ml Total Protein (6.0-8.3) gm/dl Albumin (3.4-5.0) gm/dl Globulin (2.5-4.0) gm/dl Albumin/Globulin Ratio (0.9-2) Procalcitonin (0-0.5) ng/ml TSH (0.300-4.500) uIu/ml Urine Color Yellow Urine Appearance Clear (Clear) Urine pH 6.0 (4.5-7.5) Ur Specific [place] 1.010 (1.000-1.030) Urine Protein Negative (Negative) Urine Glucose (UA) Negative (Negative) Urine Ketones Negative (Negative) Urine Blood Negative (Negative) Urine Nitrite Negative (Negative) Urine Bilirubin Negative (Negative) Urine Urobilinogen Negative (Negative) Ur Leukocyte Esterase Negative (Negative) SARS-CoV-2, RNA, NAAT NEGATIVE (NEGATIVE) Administered Medications Discontinued Medications Sodium Chloride (Nss 1000ml) 1,000 mls @ 999 mls/hr IV .Q1H1M GABI Stop: 01/17/23 17:00 Last Infusion: 01/17/23 17:56 Dose: 0 mls/hr Documented By: Admin: 01/17/23 16:24 Dose: 999 mls/hr Documented By: ACC Ceftriaxone Sodium (Rocephin) 2,000 mg in 70 mls @ 140 mls/hr IV NOW STA Stop: 01/17/23 16:42 Last Infusion: 01/17/23 17:56 Dose: 0 mls/hr Documented By: Admin: 01/17/23 16:30 Dose: 140 mls/hr Documented By: ACC Ioversol (Optiray 320 100ml) 90 ml IV ONCE ONE Stop: 01/17/23 19:14 Last Admin: 01/17/23 19:14 Dose: 90 ml Documented By: STEPHEN Imaging Data Radiologist's Impression: Chest X-Ray 01/17/23 16:00 XR chest 1V portable HISTORY: Sepsis COMPARISON: Chest 01/05/2023. FINDINGS: No pneumothorax. No pleural effusions. The heart remains mildly enlarged. Calcifications again noted within the thoracic aorta. Left basilar linear densities favor subsegmental atelectasis or scarring. Otherwise, no focal lung consolidations to suggest pneumonia. No evidence for pulmonary edema. Advanced degenerative changes in left shoulder. A right shoulder prosthesis. IMPRESSION: No significant change compared to the prior study. No acute process. ACT 112: Negative or not required by law. Electronically signed by: Pelon Denton M.D. 01/17/2023 4:34 PM Abdomen/Pelvis CT 01/17/23 18:00 Exam(s): CT ABDOMEN + PELVIS With Contrast IV Amt: 90ml EXAM: CT Abdomen and Pelvis With Intravenous Contrast CLINICAL HISTORY: Reason for exam: right sided pain. TECHNIQUE: Axial computed tomography images of the abdomen and pelvis with intravenous contrast. CTDI is 12.39 mGy and DLP is 562.41 mGy-cm. Automated exposure control was utilized for the study. A dose lowering technique was utilized adhering to the principles of ALARA. CONTRAST: Patient received 90ml of IV contrast COMPARISON: CT abdomen/pelvis on 01/09/2023 FINDINGS: Lung bases: Lower lung atelectasis. Heart: Borderline size of the heart. Coronary artery, aortic valve calcifications. ABDOMEN: Liver: Right hepatic cyst. Other small hypodensities in the liver are too small to definitively characterize. Gallbladder and bile ducts: Unremarkable. No calcified stones. No ductal dilation. Pancreas: Unremarkable. No mass. No ductal dilation. Spleen: Mild splenomegaly. Adrenals: Unremarkable. No mass. 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 No hydroureter or ureteral stone. Bilateral renal cysts. Stomach and bowel: Large amount of stool in the colon. No small bowel obstruction. Evaluation of the stomach is limited by underdistention. Diverticulosis without evidence of diverticulitis. PELVIS: Appendix: Appendix is not definitely visualized on this exam. Bladder: Unremarkable. No mass. Reproductive: Prior hysterectomy. ABDOMEN and PELVIS: Intraperitoneal space: Unremarkable. No free air. No significant fluid collection. Bones/joints: Subacute fractures of the inferior right pubic ramus. Stable compression deformities in the lower thoracic spine and lumbar spine. No dislocation. Soft tissues: Calcifications of the breasts. Vasculature: Atherosclerotic changes of the vasculature. No aortic aneurysm or dissection. Nonspecific calcification within the IVC. Phleboliths in the pelvis. Lymph nodes: Unremarkable. No enlarged lymph nodes. IMPRESSION: 1. 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 No hydroureter or ureteral stone. 2. Large amount of stool in the colon. No small bowel obstruction. 3. Splenomegaly. Electronically signed by: Thalia Catherine M.D. 01/17/23 19:48 PM Discharge Plan Visit Data Chief Complaint: Urinary Symptoms Stated Complaint: URINARY SYMPTOMS ED Provider: Jaime Gonzalez Discharge Problem: Weakness, Chronic lymphocytic leukemia, Confusion, Leukocytosis Patient Disposition: Admitted As Inpatient Condition: Good Forms Stand Alone Forms: My [facility] Prescriptions Prescriptions: No Action citalopram 10 mg Tablet 10 mg PO QAM lorazepam 0.5 mg Tablet 0.5 mg PO HS calcium citrate-vitamin D3 250 mg calcium- 200 unit Tablet 1 tab PO QAM multivitamin Tablet 1 tab PO QAM prednisone 5 mg tablet 5 mg PO UD Rx Instructions: on hold until finished with tapering dose famotidine 20 mg Tablet 20 mg PO DAILY cyanocobalamin (vitamin B-12) 1,000 mcg/mL Solution 1,000 mcg IM MONTHLY ondansetron HCl 4 mg tablet 4 mg PO Q6H PRN (Reason: Nausea) allopurinol 100 mg tablet 100 mg PO QAM furosemide 20 mg tablet 20 mg PO DAILY PRN (Reason: swelling) potassium chloride [Klor-Con M10] 10 mEq tablet,ER particles/crystals 10 meq PO DAILY PRN (Reason: Only if taking Lasix) Venclexta 100 mg Tablet 100 mg PO DAILY ciprofloxacin HCl [Cipro] 500 mg tablet 500 mg PO BID Qty: 20 0RF Rx Instructions: Start Date 01/09/23 - End Date 01/19/23 diclofenac sodium 1 % gel 2 g TOPICAL QID PRN (Reason: Pain) ammonium lactate 12 % cream 1 applic TOPICAL . NEEDED PRN (Reason: dry skin,arms and legs) Referrals Referrals: Willem Estrada MD [Primary Care Provider] -
--- NOTE | 2023-01-17 16:36 | XRay Report ---
XR chest 1V portable HISTORY: Sepsis COMPARISON: Chest 01/05/2023. FINDINGS: No pneumothorax. No pleural effusions. The heart remains mildly enlarged. Calcifications ag ain noted within the thoracic aorta. Left basilar linear densities favor subsegmental atelectasis or scarring. Otherwise, no focal lung consolidations to suggest pneumonia. No evidence for pulmonary ollie ma. Advanced degenerative changes in left shoulder. A right shoulder prosthesis. IMPRESSION: No significant change compared to the prior study. No acute process. ACT 112: Negative or not required by law. Electronically signed by: Pelon Denton M.D. 01/17/2023 4:34 PM
[2023-01-17 17:05] LABS: Hematocrit (blood only) 31.4 % (37.0-47.0); Hemoglobin 9.9 g/dl (12.0-16.0); Mean Corpuscular Hgb Conc 31.5 g/dL (32.0-36.0); Mean Corpuscular Volume 101.6 fL (80.0-100.0); Mean Platelet Volume 9.9 fL (9.4-12.4); Platelet Count 134 K/uL (130-400); RDW Coefficient of Variation 14.4 % (11.5-14.5); Red Blood Count 3.09 M/uL (4.20-5.40); White Blood Count 52.61 K/ul (4.8-10.8)
[2023-01-17 17:26] LABS: Basophils # (auto) 0.02 K/uL (0-0.2); Immature Granulocytes # (auto) 0.16 K/uL (0.01-0.20); Immature Granulocytes % (auto) 0.3 %; Lymphocytes # (auto) 44.66 K/uL (1.2-3.4); Lymphocytes % (auto) 84.9 %; Monocytes # (auto) 0.86 K/uL (0.11-0.59); Monocytes % (auto) 1.6 %; Neutrophils # (auto) 6.91 K/uL (1.40-6.50); Neutrophils % (auto) 13.2 %
[2023-01-17 18:17] LABS: Partial Thromboplastin Time 27.9 Seconds (21.0-31.0); Prothrombin Time 11.3 Seconds (9.0-12.0)
[2023-01-17 18:49] LABS: Appearance Urine Clear (Clear); Bilirubin Urine Negative (Negative); Blood Urine Negative (Negative); Color Urine Yellow; Glucose Urine UA Negative (Negative); Ketones Urine Negative (Negative); Leukocyte Esterase Urine Negative (Negative); Nitrite Urine Negative (Negative); Protein Urine Negative (Negative); Urobilinogen Urine Negative (Negative)
[2023-01-17] MEDS ORDERED: OPTIRAY 320 100ml IV ONE (19:13)
--- NOTE | 2023-01-17 19:49 | CT Scan Report ---
Exam(s): CT ABDOMEN + PELVIS With Contrast IV Amt: 90ml EXAM: CT Abdomen and Pelvis With Intravenous Contrast CLINICAL HISTORY: Reason for exam: right sided pain. TECHNIQUE: Axial computed tomography images of the abdomen and pelvis with intravenous contrast. CTDI is 12.39 mGy and DLP is 562.41 mGy-cm. Automated exposure control was utilized for the study. A dose lowering technique was utilized adhering to the principles of ALARA. CONTRAST: Patient received 90ml of IV contrast COMPARISON: CT abdomen/pelvis on 01/09/2023 FINDINGS: Lung bases: Lower lung atelectasis. Heart: Borderline size of the heart. Coronary artery, aortic valve calcifications. ABDOMEN: Liver: Right hepatic cyst. Other small hypodensities in the liver are too small to definitively characterize. Gallbladder and bile ducts: Unremarkable. No calcified stones. No ductal dilation. Pancreas: Unremarkable. No mass. No ductal dilation. Spleen: Mild splenomegaly. Adrenals: Unremarkable. No mass. 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 No hydroureter or ureteral stone. Bilateral renal cysts. Stomach and bowel: Large amount of stool in the colon. No small bowel obstruction. Evaluation of the stomach is limited by underdistention. Diverticulosis without evidence of diverticulitis. PELVIS: Appendix: Appendix is not definitely visualized on this exam. Bladder: Unremarkable. No mass. Reproductive: Prior hysterectomy. ABDOMEN and PELVIS: Intraperitoneal space: Unremarkable. No free air. No significant fluid collection. Bones/joints: Subacute fractures of the inferior right pubic ramus. Stable compression deformities in the lower thoracic spine and lumbar spine. No dislocation. Soft tissues: Calcifications of the breasts. Vasculature: Atherosclerotic changes of the vasculature. No aortic aneurysm or dissection. Nonspecific calcification within the IVC. Phleboliths in the pelvis. Lymph nodes: Unremarkable. No enlarged lymph nodes. IMPRESSION: 1. 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 No hydroureter or ureteral stone. 2. Large amount of stool in the colon. No small bowel obstruction. 3. Splenomegaly. Electronically signed by: Thalia Catherine M.D. 01/17/23 19:48 PM
--- NOTE | 2023-01-17 21:43 | History & Physical Report ---
Date of Service January 17, 2023 Assessment & Plan (1) Encephalopathy: Plan: Generalized weakness Mild clinical dehydration, creatinine up from baseline Possible ciprofloxacin intolerance due to anticholinergic side effects in elderly patient E. coli bacteremia discharged on ciprofloxacin course Home neuropsychotropic meds contributory hx CLL status post radiation currently on venetoclax and rituximab. 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 [place] bacteremia Hold neuropsychotropic meds for now until patient mentation back to baseline IVF Bowel regimen Check hemoglobin A1c PT OT eval DVT prophylaxis. SCDs Re: Thrombocytopenia DNR as per patient's prior directives. Patient's son requesting updates providers. Mr. Jay Adams, contact #[phone]. Text document was generated using [employer] voice recognition software. It may contain grammatical or spelling errors. Kindly contact undersigned for clarification of any documentation item in question. History of Present Illness Chief Complaint: Generalized weakness, confusion as per records Primary Care Provider: Willem Estrada MD History obtained from patient, caregiver, and records. History somewhat limited from patient secondary to hearing impairment. 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 coli bacteremia. Patient discharged on ciprofloxacin course as per ID recommendation (last dose on January 19, 2023). Patient noted to be increasingly confused the last few days. Achy right-sided abdominal pain and constipation. Patient denies headache, chest pain, SOB. Some chills. Patient brought to the ER for evaluation. IV Ceftriaxone administered at the ER. 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 Allergies Allergy/AdvReac Type Severity Reaction Status Date / Time mirabegron Allergy Unknown Unknown Verified 01/17/23 19:39 nitrofurantoin Allergy Unknown UNKNOWN Verified 01/17/23 19:39 oxaprozin Allergy Unknown UNKNOWN Verified 01/17/23 19:39 oxybutynin Allergy Unknown UNKNOWN Verified 01/17/23 19:39 ciprofloxacin [From Cipro] AdvReac Intermediate Confusion Verified 01/17/23 21:48 Home Medications Medication Instructions Recorded Confirmed Type calcium citrate 250 mg 1 tab PO QAM 05/18/18 01/17/23 History calcium-vitamin D3 5 mcg (200 unit) tablet citalopram 10 mg tablet 10 mg PO QAM 05/18/18 01/17/23 History lorazepam 0.5 mg tablet 0.5 mg PO HS 05/18/18 01/17/23 History multivitamin 1 tab PO QAM 11/10/18 01/17/23 History diclofenac sodium 1 % topical gel 2 g topical QID PRN Pain 02/20/21 01/17/23 History cyanocobalamin (vitamin B-12) 1,000 mcg IM MONTHLY 01/14/22 01/17/23 History 1,000 mcg/mL injection solution famotidine 20 mg tablet 20 mg PO DAILY 01/14/22 01/17/23 History ammonium lactate 12 % topical cream 1 applic topical . NEEDED PRN 08/16/22 01/17/23 History dry skin,arms and legs allopurinol 100 mg tablet 100 mg PO QAM 01/05/23 01/17/23 History furosemide 20 mg tablet 20 mg PO DAILY PRN swelling 01/05/23 01/17/23 History ondansetron HCl 4 mg tablet 4 mg PO Q6H PRN Nausea 01/05/23 01/17/23 History potassium chloride 10 mEq 10 meq PO DAILY PRN Only if taking 01/05/23 01/17/23 History tablet,extended Lasix release(part/cryst) (Klor-Con M) venetoclax 100 mg tablet 100 mg PO DAILY 01/05/23 01/17/23 History (Venclexta) ciprofloxacin HCl 500 mg tablet 500 mg PO BID #20 tabs 01/09/23 01/17/23 Rx (Cipro) prednisone 5 mg tablet 5 mg PO DAILY 07/15/23 07/15/23 History Past Med/Surg History Medical History Anemia Chronic lymphocytic leukemia Closed rib fracture Closed tibia fracture Diverticulosis of colon Dyslipidemia Fracture of spine REZA (generalized anxiety disorder) GERD (gastroesophageal reflux disease) History of squamous cell carcinoma Hypogammaglobulinemia, acquired Osteoarthritis Osteoporosis Stress reaction Symptomatic anemia Surgical History History of orthopedic surgery Status post hysterectomy Family History Other Cancer Diabetes Heart disease Social History Smoking Status: Never smoker Second Hand Exposure: No; Do You Dip or Chew Tobacco: No; Tobacco Cessation Education Requested by Patient: No Hx Alcohol Use: No Hx Substance Use: No Preferred Language: Greek Communication Ability: Effective Communication Ability Comment: uses i-pad Brand Communications Manager Required: No Beliefs That Will Affect Care: None marital status: / Current Living Situation: Family Current Living Situation Comment: personal care givers Other Information That Helps Us Care for You: No Feels Safe at Home: Yes Safety Concerns: Feels Safe At This Time Assistive Devices: Stair Lift and Walker Assistive Devices Comment: glassess,dentures,i pad,cell phone Review of Systems Review of Systems: As per HPI, all other systems reviewed and negative Physical Exam Physical Exam: GENERAL: comfortable, underweight, hard of hearing, no respiratory distress SKIN: Pallor, warm HEENT: Bespectacled, pale palpebral conjunctivae, no ptosis, dry buccal mucosa NECK : Supple, no tenderness CHEST : CTA, no tenderness HEART : RRR, no obvious murmurs ABDOMEN: no distention, nontender EXTREMITIES : no LE swelling, no LE tenderness, no other conspicuous deformities noted NEUROLOGIC : Coherent, no facial asymmetry, hard of hearing, no other gross focality Results & Data Results & Data Vital Signs (Past 12 Hours) Vital Signs Temp Pulse Pulse Resp BP BP Pulse Ox 01/17/23 21:00 81 17 136/69 97 01/17/23 20:30 85 19 136/75 95 01/17/23 20:00 88 17 135/67 97 01/17/23 19:30 86 18 131/68 96 01/17/23 19:00 91 H 21 138/68 98 01/17/23 18:57 89 24 118/88 96 01/17/23 18:30 77 19 96 01/17/23 18:20 81 20 96 01/17/23 18:17 82 18 96 01/17/23 18:17 125/68 01/17/23 18:00 77 21 97 01/17/23 17:50 77 18 97 01/17/23 17:40 77 19 97 01/17/23 17:30 76 19 97 01/17/23 17:20 76 24 98 01/17/23 17:10 76 20 98 01/17/23 17:00 78 24 97 01/17/23 16:50 76 19 97 01/17/23 16:40 77 21 98 01/17/23 16:31 78 22 97 01/17/23 18:15 36.9 C 82 19 125/68 96 01/17/23 14:52 94 01/17/23 16:33 79 01/17/23 16:00 123/80 01/17/23 16:00 80 18 99 01/17/23 15:01 36.7 C 100 H 20 104/62 95 O2 Del Method 01/17/23 21:00 Room Air 01/17/23 20:30 Room Air 01/17/23 20:00 Room Air 01/17/23 19:30 Room Air 01/17/23 19:00 Room Air 01/17/23 18:57 Room Air 01/17/23 18:30 01/17/23 18:20 01/17/23 18:17 01/17/23 18:17 01/17/23 18:00 01/17/23 17:50 01/17/23 17:40 01/17/23 17:30 01/17/23 17:20 01/17/23 17:10 01/17/23 17:00 01/17/23 16:50 01/17/23 16:40 01/17/23 16:31 01/17/23 18:15 Room Air 01/17/23 14:52 01/17/23 16:33 01/17/23 16:00 01/17/23 16:00 Room Air 01/17/23 15:01 Room Air Laboratory Results Laboratory Results WBC 52.61 K/ul (4.8-10.8) H* 01/17/23 15:39 RBC 3.09 M/uL (4.20-5.40) L 01/17/23 15:39 Hgb 9.9 g/dl (12.0-16.0) L 01/17/23 15:39 Hct 31.4 % (37.0-47.0) L 01/17/23 15:39 MCV 101.6 fL (80.0-100.0) H 01/17/23 15:39 MCH 32.0 pg (25.0-34.0) 01/17/23 15:39 MCHC 31.5 g/dL (32.0-36.0) L 01/17/23 15:39 RDW Std Deviation 53.0 fL (36.4-46.3) H 01/17/23 15:39 RDW Coeff of Riley 14.4 % (11.5-14.5) 01/17/23 15:39 Plt Count 134 K/uL (130-400) 01/17/23 15:39 MPV 9.9 fL (9.4-12.4) 01/17/23 15:39 Immature Gran % (Auto) 0.3 % 01/17/23 15:39 Neut % (Auto) 13.2 % 01/17/23 15:39 Lymph % (Auto) 84.9 % 01/17/23 15:39 Saunders % (Auto) 1.6 % 01/17/23 15:39 Eos % (Auto) 0.0 % 01/17/23 15:39 Baso % (Auto) 0.0 % 01/17/23 15:39 Neut # (Auto) 6.91 K/uL (1.40-6.50) H 01/17/23 15:39 Lymph # (Auto) 44.66 K/uL (1.2-3.4) H 01/17/23 15:39 Saunders # (Auto) 0.86 K/uL (0.11-0.59) H 01/17/23 15:39 Eos # (Auto) 0.00 K/uL (0-0.50) 01/17/23 15:39 Baso # (Auto) 0.02 K/uL (0-0.2) 01/17/23 15:39 Immature Gran # (Auto) 0.16 K/uL (0.01-0.20) 01/17/23 15:39 PT 11.3 Seconds (9.0-12.0) 01/17/23 17:24 INR 1.0 (0.9-1.1) 01/17/23 17:24 APTT 27.9 Seconds (21.0-31.0) 01/17/23 17:24 PTT Ratio 1.0 01/17/23 17:24 Sodium 135 mmol/L (136-145) L 01/17/23 15:39 Potassium 5.2 mmol/L (3.5-5.1) H 01/17/23 15:39 Chloride 101 mmol/L (98-107) 01/17/23 15:39 Carbon Dioxide 24 mmol/L (21-32) 01/17/23 15:39 Anion Gap 10 (3-11) 01/17/23 15:39 BUN 42 mg/dl (6-23) H 01/17/23 15:39 Creatinine 1.15 mg/dl (0.6-1.2) 01/17/23 15:39 Est Cr Clr Drug Dosing Not Reportable 01/17/23 15:39 Est GFR ( Amer) 50.2 ml/min 01/17/23 15:39 Est GFR (Non-Af Amer) 43.4 ml/min 01/17/23 15:39 BUN/Creatinine Ratio 36.5 (10-20) H 01/17/23 15:39 Glucose 144 mg/dl (70-99(Fasting)) H 01/17/23 15:39 Lactate 1.4 mmol/L (0.4-2.0) 01/17/23 16:40 Calcium 9.0 mg/dl (8.6-10.3) 01/17/23 15:39 Magnesium 2.1 mg/dl (1.7-2.4) 01/17/23 15:39 Total Bilirubin 0.6 mg/dl (0.2-1.0) 01/17/23 15:39 AST 26 U/L (13-39) 01/17/23 15:39 ALT 26 U/L (7-52) 01/17/23 15:39 Alkaline Phosphatase 118 U/L (34-104) H 01/17/23 15:39 Troponin I High Sens 6.9 pg/ml (0-14) 01/17/23 16:40 Total Protein 7.6 gm/dl (6.0-8.3) 01/17/23 15:39 Albumin 3.6 gm/dl (3.4-5.0) 01/17/23 15:39 Globulin 4.0 gm/dl (2.5-4.0) 01/17/23 15:39 Albumin/Globulin Ratio 0.9 (0.9-2) 01/17/23 15:39 Procalcitonin 1.69 ng/ml (0-0.5) H 01/17/23 15:39 Urine Color Yellow 01/17/23 18:10 Urine Appearance Clear (Clear) 01/17/23 18:10 Urine pH 6.0 (4.5-7.5) 01/17/23 18:10 Ur Specific [place] 1.010 (1.000-1.030) 01/17/23 18:10 Urine Protein Negative (Negative) 01/17/23 18:10 Urine Glucose (UA) Negative (Negative) 01/17/23 18:10 Urine Ketones Negative (Negative) 01/17/23 18:10 Urine Blood Negative (Negative) 01/17/23 18:10 Urine Nitrite Negative (Negative) 01/17/23 18:10 Urine Bilirubin Negative (Negative) 01/17/23 18:10 Urine Urobilinogen Negative (Negative) 01/17/23 18:10 Ur Leukocyte Esterase Negative (Negative) 01/17/23 18:10 SARS-CoV-2, RNA, NAAT NEGATIVE (NEGATIVE) 01/17/23 17:50 Impressions Chest X-Ray 01/17/23 16:00 XR chest 1V portable HISTORY: Sepsis COMPARISON: Chest 01/05/2023. FINDINGS: No pneumothorax. No pleural effusions. The heart remains mildly enlarged. Calcifications again noted within the thoracic aorta. Left basilar linear densities favor subsegmental atelectasis or scarring. Otherwise, no focal lung consolidations to suggest pneumonia. No evidence for pulmonary edema. Advanced degenerative changes in left shoulder. A right shoulder prosthesis. IMPRESSION: No significant change compared to the prior study. No acute process. ACT 112: Negative or not required by law. Electronically signed by: Pelon Denton M.D. 01/17/2023 4:34 PM Abdomen/Pelvis CT 01/17/23 18:00 Exam(s): CT ABDOMEN + PELVIS With Contrast IV Amt: 90ml EXAM: CT Abdomen and Pelvis With Intravenous Contrast CLINICAL HISTORY: Reason for exam: right sided pain. TECHNIQUE: Axial computed tomography images of the abdomen and pelvis with intravenous contrast. CTDI is 12.39 mGy and DLP is 562.41 mGy-cm. Automated exposure control was utilized for the study. A dose lowering technique was utilized adhering to the principles of ALARA. CONTRAST: Patient received 90ml of IV contrast COMPARISON: CT abdomen/pelvis on 01/09/2023 FINDINGS: Lung bases: Lower lung atelectasis. Heart: Borderline size of the heart. Coronary artery, aortic valve calcifications. ABDOMEN: Liver: Right hepatic cyst. Other small hypodensities in the liver are too small to definitively characterize. Gallbladder and bile ducts: Unremarkable. No calcified stones. No ductal dilation. Pancreas: Unremarkable. No mass. No ductal dilation. Spleen: Mild splenomegaly. Adrenals: Unremarkable. No mass. 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 No hydroureter or ureteral stone. Bilateral renal cysts. Stomach and bowel: Large amount of stool in the colon. No small bowel obstruction. Evaluation of the stomach is limited by underdistention. Diverticulosis without evidence of diverticulitis. PELVIS: Appendix: Appendix is not definitely visualized on this exam. Bladder: Unremarkable. No mass. Reproductive: Prior hysterectomy. ABDOMEN and PELVIS: Intraperitoneal space: Unremarkable. No free air. No significant fluid collection. Bones/joints: Subacute fractures of the inferior right pubic ramus. Stable compression deformities in the lower thoracic spine and lumbar spine. No dislocation. Soft tissues: Calcifications of the breasts. Vasculature: Atherosclerotic changes of the vasculature. No aortic aneurysm or dissection. Nonspecific calcification within the IVC. Phleboliths in the pelvis. Lymph nodes: Unremarkable. No enlarged lymph nodes. IMPRESSION: 1. 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 No hydroureter or ureteral stone. 2. Large amount of stool in the colon. No small bowel obstruction. 3. Splenomegaly. Electronically signed by: Thalia Catherine M.D. 01/17/23 19:48 PM Diagnostic Findings EKG as per my interpretation rate 75, NSR, LAD, LAFB, LVH, no ischemia
[2023-01-17] MEDS ORDERED: POLYETHYLENE (MIRALAX) 17 GM PACK PO STA (21:46)
[2023-01-17] MEDS ORDERED: PROMETHAZINE HCL 6.25 MG in SODIUM CHLORIDE 0.9% 50 ML IV PRN (21:46)
[2023-01-17] MEDS ORDERED: DOCUSATE SODIUM/SENNA 50/8.6MG TAB PO STA (22:03)
[2023-01-17] MEDS ORDERED: DICLOFENAC SOD 1% GEL 100 GM TUBE EXT PRN (23:07)
[2023-01-18] MEDS ORDERED: LORazepam 0.5 MG TAB PO PRN (02:17)
[2023-01-18] MEDS ORDERED: SODIUM CHLORIDE 0.9% 1000ML 1,000 ML IV ONE (02:19)
[2023-01-18] MEDS: ACETAMINOPHEN 325 MG TAB PO PRN ×5 (02:43→23:36)
[2023-01-18 03:23] LABS: Hematocrit (blood only) 29.6 % (37.0-47.0); Hemoglobin 9.5 g/dl (12.0-16.0); Mean Corpuscular Hemoglobin 32.1 pg (25.0-34.0); Mean Corpuscular Hgb Conc 32.1 g/dL (32.0-36.0); Mean Platelet Volume 9.6 fL (9.4-12.4); Platelet Count 113 K/uL (130-400); RDW Coefficient of Variation 14.3 % (11.5-14.5); RDW Standard Deviation 51.8 fL (36.4-46.3); Red Blood Count 2.96 M/uL (4.20-5.40); White Blood Count 57.58 K/ul (4.8-10.8)
[2023-01-18 03:24] LABS: BUN Creatinine Ratio 37.4 (10-20); Calcium 8.2 mg/dl (8.6-10.3); Creatinine Clr Calc Pharmacy 35.8 ml/min; Est GFR (African American) 66.7 ml/min; Est GFR (Non-African American) 57.5 ml/min; Potassium 4.3 mmol/L (3.5-5.1)
[2023-01-18] MEDS: amLODIPine BESYLATE 5 MG TAB PO SCH (03:53)
[2023-01-18 04:20] LABS: Basophils # (auto) 0.03 K/uL (0-0.2); Basophils % (auto) 0.1 %; Eosinophils # (auto) 0.01 K/uL (0-0.50); Immature Granulocytes % (auto) 0.2 %; Lymphocytes # (auto) 51.29 K/uL (1.2-3.4); Lymphocytes % (auto) 89.1 %; Monocytes # (auto) 1.31 K/uL (0.11-0.59); Monocytes % (auto) 2.3 %; Neutrophils # (auto) 4.84 K/uL (1.40-6.50); Neutrophils % (auto) 8.3 %; Polychromasia 1+
[2023-01-18 07:56] LABS: Estimated Average Glucose 134 mg/dl; Hemoglobin A1C 6.3 % (4.5-5.6)
[2023-01-18] MEDS: CITALOPRAM 20 MG TAB PO SCH (08:57)
[2023-01-18] MEDS: allopurinoL 100 MG TAB PO SCH (08:57)
[2023-01-18] MEDS: DOCUSATE SODIUM/SENNA 50/8.6MG TAB PO SCH (08:58)
[2023-01-18] MEDS: MULTIVITAMIN TAB PO SCH (08:58)
[2023-01-18] MEDS: FAMOTIDINE 20 MG TAB PO SCH (08:58)
[2023-01-18] MEDS ORDERED: predniSONE 5 MG TAB PO SCH ×2 (09:00→14:15)
[2023-01-18] MEDS: POLYETHYLENE (MIRALAX) 17 GM PACK PO PRN (11:41)
[2023-01-18] MEDS ORDERED: SOD PHOSPHATE/SOD BIPHOSPHATE ENEMA 132 ML BTL PR PRN (12:45)
--- NOTE | 2023-01-18 14:06 | Electrocardiogram Report ---
Test Reason : Blood Pressure : / mmHG Vent. Rate : 078 BPM Atrial Rate : 078 BPM P-R Int : 148 ms QRS Dur : 078 ms QT Int : 372 ms P-R-T Axes : 050 -24 022 degrees QTc Int : 424 ms Normal sinus rhythm Minimal voltage criteria for LVH, may be normal variant ( R in aVL ) Borderline ECG When compared with ECG of 05-JAN-2023 12:56, Nonspecific T wave abnormality no longer evident in Anterior leads Confirmed by Maykel Albarado ([id number]) on 01/18/2023 2:06:21 PM Referred By: REFERRED SELF Confirmed By:Maykel Albarado
--- NOTE | 2023-01-18 14:50 | Hospitalist Progress Note ---
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 Patient was recently discharged on ciprofloxacin for E. coli bacteremia. Already alert and oriented x4 at bedside exam on day 1. Has CLL so WBC chronically elevated. Procalcitonin at admission significantly improved compared to recent admission. DC Cipro, continue with Rocephin 01/18 to complete the course. Hold neuro psychotropic meds, continue monitoring. Right belly pain Constipation Admitting CTAP with large amount of stool in the colon. Patient had a large bowel movement after Fleet enema today, with relief of symptoms. Bowel regimen scheduled, continue to monitor. CLL, hypogammaglobulinemia, chronic anemia, thrombocytopenia EPIC chart review shows she has complained of generalized weakness to her therapist radiation and there was concern related to her CLL CLL was not responding to ibrutinib and was switched in December 2022 to Venetoclax (started December 18, 2022 with increasing doses) and rituximab in next few weeks. Pt states she has the venetoclax at home. Follows with Dr. Vasquez from hematology, patient aware about holding medications for CLL until the antibiotic course is done or seen by Dr. Vasquez from her previous admission recently HTN: amlod added this admission as lasix was held at admission due to clinical dehydration, will resume Lasix in am, and continue to titrate BP Meds. Anxiety/MDD: On celexa and lorazepam, hold lorazepam for now seronegative polyarthritis/osteoarthritis: on chronic prednisone Rx, continue Gout: Continue allopurinol Edema: Continue lasix GERD: continue famotidine, pt complaints of heartburn despite being on pepcid, will add pantoprazole. DVT prophylaxis: SCDs, Hx of thrombocytopenia, anemia Diet: Regular CODE STATUS:DNR/DNI Pt's son Jay ([phone]). Admission and Anticipated Discharge Date Admission Date: January 17, 2023 Subjective Patient seen and examined at bedside as a follow-up of likely toxic encephalopathy/possible ciprofloxacin intolerance and constipation. Patient was lying in bed, on room air, NAD, alert and oriented x3, reports right lateral mid belly pain, has not moved bowel in last 4 days, was given Fleet enema and with a large volume bowel movement later in the afternoon. Patient denies any fever or chills or chest pain or cough. Physical Exam Physical Exam: GENERAL: Alert and oriented x3. NAD, on RA. HEENT: No pallor, no icterus. Pupils equal, round and reactive to light. Oral mucosa moist. NECK: No JVD, no neck masses. HEART: S1 and S2 heard. Regular rate and rhythm. No murmur, no gallop. RESPIRATORY SYSTEM: Normal AP diameter. No accessory muscle use. No wheezing, no crackles. ABDOMEN: Soft, bowel sounds present, right belly very mild subjective tenderness/no facial grimmacing noted, ? distention/pt not able to comment on this. CENTRAL NERVOUS SYSTEM: No facial droop. Speech is clear. Obeys simple commands. Moves extremities. EXTREMITIES: Trace BLE edema, chronic BLE skin changes noted, no erythema seen. Results & Data Results & Data Vital Signs (Past 12 Hours) Vital Signs Temp Pulse Resp BP Pulse Ox O2 Del Method 01/18/23 08:45 Room Air 01/18/23 08:16 36.7 C 90 18 149/75 H 98 Room Air 01/18/23 03:02 22 99 Room Air
[2023-01-18] MEDS ORDERED: AMMONIUM LACTATE 12% LOTION 225 GM BTL EXT PRN (15:14)
[2023-01-18] MEDS: cefTRIAXone SODIUM 2,000 MG in DEXTROSE 5% 50 ML IV SCH (15:45)
[2023-01-18] MEDS: PANTOprazole 40 MG TAB PO SCH (19:48)
[2023-01-19] MEDS: POLYETHYLENE (MIRALAX) 17 GM PACK PO PRN (08:56)
[2023-01-19] MEDS: DOCUSATE SODIUM/SENNA 50/8.6MG TAB PO SCH (08:56)
[2023-01-19] MEDS: ACETAMINOPHEN 325 MG TAB PO PRN (08:56)
[2023-01-19] MEDS: allopurinoL 100 MG TAB PO SCH (08:57)
[2023-01-19] MEDS: amLODIPine BESYLATE 5 MG TAB PO SCH (08:57)
[2023-01-19] MEDS: FAMOTIDINE 20 MG TAB PO SCH (08:58)
[2023-01-19] MEDS: CITALOPRAM 20 MG TAB PO SCH (08:58)
[2023-01-19] MEDS: MULTIVITAMIN TAB PO SCH (08:59)
[2023-01-19] MEDS: PANTOprazole 40 MG TAB PO SCH (08:59)
[2023-01-19] MEDS ORDERED: CALCIUM 600MG + VIT D 400 IU TAB PO SCH (09:00)
[2023-01-19] MEDS ORDERED: predniSONE 5 MG TAB PO SCH (09:00)
[2023-01-19 09:11] LABS: Hematocrit (blood only) 33.1 % (37.0-47.0); Hemoglobin 10.2 g/dl (12.0-16.0); Mean Corpuscular Hemoglobin 31.2 pg (25.0-34.0); Mean Corpuscular Hgb Conc 30.8 g/dL (32.0-36.0); Mean Corpuscular Volume 101.2 fL (80.0-100.0); Mean Platelet Volume 9.3 fL (9.4-12.4); Platelet Count 136 K/uL (130-400); RDW Coefficient of Variation 14.3 % (11.5-14.5); RDW Standard Deviation 51.8 fL (36.4-46.3); Red Blood Count 3.27 M/uL (4.20-5.40); White Blood Count 72.79 K/ul (4.8-10.8)
[2023-01-19 09:33] LABS: Calcium 8.7 mg/dl (8.6-10.3); Creatinine Clr Calc Pharmacy 45.9 ml/min; Est GFR (Non-African American) 77.7 ml/min; Magnesium 1.9 mg/dl (1.7-2.4); Phosphorus 2.6 mg/dl (2.5-4.9); Potassium 4.8 mmol/L (3.5-5.1)
[2023-01-19] MEDS ORDERED: SOD PHOSPHATE/SOD BIPHOSPHATE ENEMA 132 ML BTL PR STA (12:47)
--- NOTE | 2023-01-19 13:06 | Discharge Summary ---
Date of Service January 19, 2023 Admission HPI Per Admitting Provider History obtained from patient, caregiver, and records. History somewhat limited from patient secondary to hearing impairment. 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 coli bacteremia. Patient discharged on ciprofloxacin course as per ID recommendation (last dose on January 19, 2023). Patient noted to be increasingly confused the last few days. Achy right-sided abdominal pain and constipation. Patient denies headache, chest pain, SOB. Some chills. Patient brought to the ER for evaluation. IV Ceftriaxone administered at the ER. 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 Exam Per Admitting Provider GENERAL: comfortable, underweight, hard of hearing, no respiratory distress SKIN: Pallor, warm HEENT: Bespectacled, pale palpebral conjunctivae, no ptosis, dry buccal mucosa NECK : Supple, no tenderness CHEST : CTA, no tenderness HEART : RRR, no obvious murmurs ABDOMEN: no distention, nontender EXTREMITIES : no LE swelling, no LE tenderness, no other conspicuous deformities noted NEUROLOGIC : Coherent, no facial asymmetry, hard of hearing, no other gross focality Principal Diagnosis Toxic encephalopathy Constipation History of CLL, hypogammaglobulinemia, chronic anemia, thrombocytopenia Discharge Exam GENERAL: Alert and oriented x3. NAD, on RA. HEENT: No pallor, no icterus. Pupils equal, round and reactive to light. Oral mucosa moist. NECK: No JVD, no neck masses. HEART: S1 and S2 heard. Regular rate and rhythm. No murmur, no gallop. RESPIRATORY SYSTEM: Normal AP diameter. No accessory muscle use. No wheezing, no crackles. ABDOMEN: Soft, bowel sounds present, non tender, soft bowel sounds. CENTRAL NERVOUS SYSTEM: No facial droop. Speech is clear. Obeys simple commands. Moves extremities. EXTREMITIES: Trace BLE edema, chronic BLE skin changes noted, no erythema seen. Discharge Data Allergies Allergy/AdvReac Type Severity Reaction Status Date / Time mirabegron Allergy Unknown Unknown Verified 01/17/23 19:39 nitrofurantoin Allergy Unknown UNKNOWN Verified 01/17/23 19:39 oxaprozin Allergy Unknown UNKNOWN Verified 01/17/23 19:39 oxybutynin Allergy Unknown UNKNOWN Verified 01/17/23 19:39 ciprofloxacin [From Cipro] AdvReac Intermediate Confusion Verified 01/17/23 21:48 Consultations 01/17/23 20:17 ED Decision to Admit Stat Ordered Studies 01/17/23 18:00 CT abd pelvis IV con only Stat Hospital Course (1) Encephalopathy: Plan 87yoF with PMHx of significant for CLL s/p radiation currently on Venetoclax and rituximab, 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 Patient was recently discharged on ciprofloxacin for E. coli bacteremia. Already alert and oriented x4 at bedside exam on day 1. Has CLL so WBC chronically elevated. Procalcitonin at admission significantly improved compared to recent admission. DC'd Cipro, continue with Rocephin 01/18 to complete the course. Will complete today. Right belly pain Constipation Admitting CTAP with large amount of stool in the colon. Patient had a large bowel movement after Fleet enema 01/18, with relief of symptoms. Pt requesting further enema. Bowel regimen scheduled, continue to monitor. CLL, hypogammaglobulinemia, chronic anemia, thrombocytopenia EPIC chart review shows she has complained of generalized weakness to her outpatient surgery rn and there was concern related to her CLL CLL was not responding to ibrutinib and was switched in December 2022 to Venetoclax (started December 18, 2022 with increasing doses) and rituximab in next few weeks. Pt states she has the venetoclax at home. Follows with Dr. Vasquez from hematology, patient aware about holding medications for CLL until the antibiotic course is done or seen by Dr. Vasquez from her previous admission recently HTN: DC amlod at lasix will be resumed upon discharge, continue to titrate BP Meds via f/u w/ pcp office, instruction noted. Anxiety/MDD:On celexa and lorazepam. seronegative polyarthritis/osteoarthritis:on chronic prednisone Rx, continue Gout:Continue allopurinol Edema:Continue lasix GERD:continue famotidine, pt complaints of heartburn despite being on pepcid, will add pantoprazole. DVT prophylaxis: SCDs, Hx of thrombocytopenia, anemia Diet: Regular CODE STATUS:DNR/DNI Pt's son Jay ([phone]). Patient being discharged home with family support with following instructions upon discharge: Follow-up with your primary care physician within a week time and likely you will need labs CBC/CMP/magnesium/phosphorus. You will complete the antibiotic course for your E. coli bacteremia after today's dose of iv ceftriaxone before you leave the hospital. Continue to take scheduled laxatives/stool softener for your constipation. They are available over the counter. Continue to measure your blood pressure twice a day, maintain a log to take to your primary care physician office for further necessary evaluation/dose adjustment of your blood pressure medications. You can resume taking your lasix upon discharge. Please make sure that you are able to get your medications today by calling your pharmacy before you leave the hospital so that your treatment continuity is not broken. Home Health Attestation I certify that this patient is under my care and that I, or a physicians orthotics prosthetics assistant working with me, had a face to-face encounter that meets the home health [id number] encounter requirements with this patient. The encounter with the patient was in whole, or in part, for the following medical condition, which is the primary reason for home health care (list medical condition): I certify that, based on my findings, the following services are medically necessary home health services: My clinical findings support the need for the above services because: Further, I certify that my clinical findings support that this patient is homebound (i.e. absences from home require considerable and taxing effort and are for medical reasons or mandaen services or infrequently or of short duration when for other reasons) because: Certification for Home Health Services: Based on the above findings, I certify that this patient is confined to the home and needs intermittent fdc care, physical therapy and/or speech therapy or continues to need occupational therapy. The patient is under my care, and I have initiated the establishment of the plan of care. This patient will be followed by a physician who will periodically review the plan of care. Total Time Total Time Spent Total Time Spent (In Minutes): 45 Discharge Plan Discharge Items Patient Disposition: Home - Self-Care Reason For Visit: TRANSIENT AMS, HX BACTEREMIA Discharge Diagnosis: Toxic encephalopathy Constipation History of CLL, hypogammaglobulinemia, chronic anemia, thrombocytopenia Condition on Discharge: Good Activity: Resume your previous activity Non-emergency contact: Primary Care Provider Call non-emergency contact if: you have any medication questions, your symptoms worsen and your temperature is above 101 Follow-up/Referrals: Willem Estrada MD [Primary Care Provider] - Diet: Lactose Intolerant Addtl Attending Provider Instructions: Follow-up with your primary care physician within a week time and likely you will need labs CBC/CMP/magnesium/phosphorus. You will complete the antibiotic course for your E. coli bacteremia after today's dose of iv ceftriaxone before you leave the hospital. Continue to take scheduled laxatives/stool softener for your constipation. They are available over the counter. Continue to measure your blood pressure twice a day, maintain a log to take to your primary care physician office for further necessary evaluation/dose adjustment of your blood pressure medications. You can resume taking your lasix upon discharge. Please make sure that you are able to get your medications today by calling your pharmacy before you leave the hospital so that your treatment continuity is not broken. Pending Studies at Discharge: Yes Stand-Alone Forms: My [employer]Plan, Smoking Cessation Medications and DC Order Prescriptions: New polyethylene glycol 3350 [Miralax] 17 gram Powder In Packet 17 g PO DAILY PRN (Reason: constipation) Qty: 30 0RF sennosides-docusate sodium [Senokot-S] 8.6-50 mg Tablet 1 tab PO QAM Qty: 30 0RF Continued citalopram 10 mg Tablet 10 mg PO QAM calcium citrate-vitamin D3 250 mg calcium- 200 unit Tablet 1 tab PO QAM multivitamin Tablet 1 tab PO QAM cyanocobalamin (vitamin B-12) 1,000 mcg/mL Solution 1,000 mcg IM MONTHLY ondansetron HCl 4 mg tablet 4 mg PO Q6H PRN (Reason: Nausea) allopurinol 100 mg tablet 100 mg PO QAM furosemide 20 mg tablet 20 mg PO DAILY PRN (Reason: swelling) potassium chloride [Klor-Con M10] 10 mEq tablet,ER particles/crystals 10 meq PO DAILY PRN (Reason: Only if taking Lasix) Venclexta 100 mg Tablet 100 mg PO DAILY diclofenac sodium 1 % gel 2 g TOPICAL QID PRN (Reason: Pain) ammonium lactate 12 % cream 1 applic TOPICAL . NEEDED PRN (Reason: dry skin,arms and legs) prednisone 5 mg tablet 5 mg PO DAILY Changed famotidine 20 mg Tablet 20 mg PO BID Qty: 60 0RF Discontinued lorazepam 0.5 mg Tablet 0.5 mg PO HS ciprofloxacin HCl [Cipro] 500 mg tablet 500 mg PO BID Qty: 20 0RF Rx Instructions: Start Date 01/09/23 - End Date 01/19/23 Discharge Orders: Discharge Order (Routine); Ordered 01/19/23 Ordered By: Bety Batres Admission Data Admit Date/Time: 01/17/23 21:45 Attending Provider: Bety Batres Admit Provider: Carlos Villa Primary Care Provider: Willem Estrada Other Providers: Carlos Villa
[2023-01-19] MEDS: cefTRIAXone SODIUM 2,000 MG in DEXTROSE 5% 50 ML IV SCH (14:37)
== END 2023-01-19 16:52 | disposition home or self-care (01) | DRG 92 ==
LOC: ED 14:52 → 3E 21:45 → INTOOBSV 21:45 → 3E 22:37

== ENCOUNTER 2023-08-11 15:10 | Inpatient (IN) ==
[2023-08-11 16:06] LABS: Base Excess VBG 2.5 mEq/L; HCO3 VBG 26 mmol/L; Oxygen Saturation VBG < 60.0 %; PCO2 VBG 37 mmHg (38-50); PO2 VBG 26 mmHg; pH VBG 7.46 (7.36-7.41)
--- NOTE | 2023-08-11 16:21 | Emergency Department Note ---
Impression & Plan Acute dyspnea, Pneumonia, Non-ST elevation WI (NSTEMI), Sepsis, Elevated procalcitonin, Elevated brain natriuretic peptide (BNP) level, Acute hyperkalemia ED Provider Note HISTORY OF PRESENT ILLNESS: Patient is an 87-year-old female presenting with tachypnea and cough. Patient reportedly has been progressively worsening sickness over the last 6 days. She tested positive for COVID 6 days ago. She was having difficulty breathing earlier today and called 911 and had saturations of 90% with EMS on room air. Patient does not wear any supplemental oxygen at baseline. No reported fevers at home. She reports a cough productive of white sputum. Denies any chest pain, nausea or vomiting. Denies any abdominal pain. She has a history of CLL and gets monthly IV infusion chemotherapy. Her last round was a month ago. She reportedly had a temperature of 100 degrees earlier today. Denies any DVT or PE history. She is not on any anticoagulation. ROS: as above PHYSICAL EXAM: Constitutional: Patient appears in no acute distress. HENT: Head: Normocephalic and atraumatic. Eyes: EOMI, PERRL Mouth/Throat: Mucous membranes moist. Neck: Trachea midline. Neck supple. Cardiovascular: Tachycardic with regular rhythm no murmurs, rubs or gallops. Intact distal pulses. Pulmonary/Chest: No respiratory distress. Breath sounds clear and equal bilaterally. Coarse breath sounds bilaterally. Abdominal: Abdomen soft, no tenderness, rebound or guarding. Musculoskeletal: No edema, tenderness or deformity noted. Skin: Warm and dry. No rash, erythema, pallor or cyanosis Psychiatric: Appropriate mood and affect for situation. Neurological: Alert and keenly responsive. CN II-XII grossly intact, moving all extremities equally and fully. MDM: - Vitals signs showed hypotension and tachycardia. - History obtained via patient. Patient presents with cough and shortness of breath. Patient has had progressively worsening symptoms over the last 6 days. She tested positive COVID 6 days ago. Was having difficulty catching her breath earlier today and called 911. Denies any DVT or PE history. Denies any chest pain. - Chronic conditions affecting care: CLL; HLD; GERD - Differential diagnoses include, but are not limited to: Congestive heart failure; acute coronary syndrome; COPD/asthma exacerbation; pulmonary edema; pulmonary embolism; pneumonia; pneumothorax; viral syndrome - Order placed for continuous cardiac monitoring. At this time, monitor showed rate of 114 bpm with normal sinus rhythm, per my interpretation. - External medical records reviewed. EMS run sheet was reviewed. Patient was hypoxic on room air at 90% and was started on 2 L nasal cannula with improvement in her saturations. - EKG interpreted by myself showed normal sinus rhythm. Rate tachycardic at 116 bpm. QT is 306. No acute ischemic changes. Patient is noted to have some peaking of her T waves in the lateral leads. - Laboratory workup interpreted by myself showed leukocytosis (WBC 159.05) with lymphocytic shift; hyperkalemia (K 5.2); elevated troponin (457.3); elevated procalcitonin (20.25); elevated BNP (436) - CXR showed right upper lobe pneumonia, per my interpretation - Blood cultures obtained. - Patient given 2L NS and IV vancomycin and cefepime for sepsis coverage. - VBG grossly unremarkable - Discussion was had with zoo caretaker about patient's case and need for admission - Hospitalist consulted for admission - Patient admitted to [facility] service for further evaluation and management. ASSESSMENT AND PLAN: Diagnosis: pneumonia; sepsis; hyperkalemia; NSTEMI; elevated procalcitonin; elevated BNP Plan: admit Past Med/Surg History Medical History Symptomatic anemia Anemia REZA (generalized anxiety disorder) Fracture of spine Closed tibia fracture Closed rib fracture Stress reaction GERD (gastroesophageal reflux disease) Diverticulosis of colon Osteoporosis Osteoarthritis Hypogammaglobulinemia, acquired History of squamous cell carcinoma Dyslipidemia Chronic lymphocytic leukemia Surgical History History of orthopedic surgery Status post hysterectomy Family History Other Cancer Diabetes Heart disease Social History Smoking Status: Never smoker Second Hand Exposure: No; Do You Dip or Chew Tobacco: No; Hx Alcohol Use: No Hx Substance Use: No Preferred Language: Sami Communication Ability: Effective Communication Ability Comment: uses i-pad General Labor Required: No Beliefs That Will Affect Care: None marital status: / Current Living Situation: Family Current Living Situation Comment: personal care givers Feels Safe at Home: Yes Assistive Devices: Stair Lift and Walker Allergies Allergies Allergy/AdvReac Type Severity Reaction Status Date / Time nitrofurantoin Allergy Unknown UNKNOWN Verified 08/05/23 22:15 PER GMG oxaprozin Allergy Unknown UNKNOWN Verified 08/05/23 22:15 PER GMG oxybutynin Allergy Unknown UNKNOWN Verified 08/05/23 22:15 PER GMG ciprofloxacin [From Cipro] AdvReac Intermediate Confusion Verified 08/05/23 22:15 melatonin AdvReac Intermediate OPPOSITE Verified 08/05/23 22:15 AFFECT mirabegron AdvReac Intermediate Hypertensio Verified 08/05/23 22:15 n Home Meds Home Medications Medication Instructions Recorded Confirmed calcium citrate 250 mg 2 tab PO QAM 05/18/18 08/11/23 calcium-vitamin D3 5 mcg (200 unit) tablet citalopram 10 mg tablet 10 mg PO QAM 05/18/18 08/11/23 diclofenac sodium 1 % topical gel 2 g topical QID PRN Pain 02/20/21 08/11/23 cyanocobalamin (vitamin B-12) 1,000 mcg IM MONTHLY 01/14/22 08/11/23 1,000 mcg/mL injection solution ammonium lactate 12 % topical cream 1 applic topical DIRECTED PRN 08/16/22 08/11/23 dry skin,arms and legs prednisone 5 mg tablet 5 mg PO DAILY 01/18/23 08/11/23 fluticasone propionate 50 2 spray intranasal DAILY 08/05/23 08/11/23 mcg/actuation nasal spray,suspension loratadine 10 mg tablet (Claritin) 10 mg PO DAILY PRN Congestion 08/05/23 08/11/23 lorazepam 0.5 mg tablet 0.5 mg PO HS 08/05/23 08/11/23 multivitamin with minerals 1 tab PO DAILY 08/05/23 08/11/23 sodium chloride 0.65 % nasal spray 1 spray intranasal DIRECTED PRN 08/05/23 08/11/23 aerosol (Saline Nasal) Congestion Previous Rx's Medication Instructions Recorded polyethylene glycol 3350 17 gram 17 g PO DAILY PRN constipation #30 01/19/23 oral powder packet (Miralax) ea sennosides 8.6 mg-docusate sodium 1 tab PO QAM #30 tabs 01/19/23 50 mg tablet (Senokot-S) benzonatate 100 mg capsule 100 mg PO TID PRN cough #30 caps 08/06/23 Results & Data (ED) Vital Signs Vital Signs - 24 hr 08/11/23 14:57 08/11/23 14:57 08/11/23 14:57 Temperature 37.0 C Temperature Source Oral Pulse Rate 110 H Pulse Rate [Apical] Pulse Rhythm Regular Pulse Rhythm [Apical] Pulse Strength Normal Pulse Strength [Apical] Respiratory Rate 25 H Respiratory Effort / Characteristics Spontaneous Short of Breath SOB on Exertion Non-Labored Spontaneous Respiratory Depth Deep Normal Respiratory Pattern Rapid/Deep Regular Blood Pressure 135/72 Blood Pressure Mean 93 Blood Pressure Position Semi-fowlers Pulse Oximetry 93 93 Oxygen Delivery Method Room Air Room Air Room Air Sepsis Recent Fever Within 48 Hours Yes Sepsis New/Unexplained Change in Mental Status N/A Sepsis Action Taken by Nursing Physician Notified 08/11/23 14:57 08/11/23 15:49 08/11/23 16:07 Temperature 37.0 C Temperature Source Oral Pulse Rate 110 H 114 H Pulse Rate [Apical] 106 H Pulse Rhythm Regular Pulse Rhythm [Apical] Regular Pulse Strength Pulse Strength [Apical] Normal Respiratory Rate 25 H 25 H Respiratory Effort / Characteristics Short of Breath Respiratory Depth Normal Respiratory Pattern Rapid/Deep Blood Pressure Blood Pressure Mean Blood Pressure Position Pulse Oximetry 93 93 Oxygen Delivery Method Room Air Room Air Sepsis Recent Fever Within 48 Hours Sepsis New/Unexplained Change in Mental Status Sepsis Action Taken by Nursing Laboratory Data 08/11/23 15:54 08/11/23 15:54 Lab Results 08/11/23 08/11/23 08/11/23 Range/Units 15:54 17:22 17:23 WBC 159.05 H* (4.8-10.8) K/ul RBC 3.39 L (4.20-5.40) M/uL Hgb 11.1 L (12.0-16.0) g/dl Hct 36.5 L (37.0-47.0) % MCV 107.7 H (80.0-100.0) fL MCH 32.7 (25.0-34.0) pg MCHC 30.4 L (32.0-36.0) g/dL RDW Std Deviation 58.2 H (36.4-46.3) fL RDW Coeff of Riley 15.3 H (11.5-14.5) % Plt Count 59 L (130-400) K/uL MPV 9.7 (9.4-12.4) fL Immature Gran % (Auto) 0.3 % Neut % (Auto) 5.4 % Lymph % (Auto) 91.9 % Sampson % (Auto) 2.4 % Eos % (Auto) 0.0 % Baso % (Auto) 0.0 % Neut # (Auto) 8.51 H (1.40-6.50) K/uL Lymph # (Auto) 146.09 H (1.20-3.40) K/uL Sampson # (Auto) 3.88 H (0.11-0.59) K/uL Eos # (Auto) 0.03 (0.00-0.50) K/uL Baso # (Auto) 0.05 (0.00-0.20) K/uL Immature Gran # (Auto) 0.49 H (0.01-0.20) K/uL Smudge Cells Present Polychromasia 1+ Anisocytosis Present PT 10.2 (9.0-12.0) Seconds INR 0.9 (0.9-1.1) VBG pH 7.46 H (7.36-7.41) VBG pCO2 37 L (38-50) mmHg VBG pO2 26 mmHg VBG HCO3 26 mmol/L VBG O2 Saturation < 60.0 % VBG Base Excess 2.5 mEq/L Sodium 136 (136-145) mmol/L Potassium 5.2 H (3.5-5.1) mmol/L Chloride 101 (98-107) mmol/L Carbon Dioxide 25 (21-32) mmol/L Anion Gap 10 (3-11) BUN 35 H (6-23) mg/dl Creatinine 0.97 (0.6-1.2) mg/dl Est Cr Clr Drug Dosing 33.7 ml/min Est GFR ( Amer) 61.7 ml/min Est GFR (Non-Af Amer) 53.3 ml/min BUN/Creatinine Ratio 36.1 H (10-20) Glucose 128 H (70-99(Fasting)) mg/dl Lactate 1.1 1.1 (0.4-2.0) mmol/L Calcium 9.4 (8.6-10.3) mg/dl Magnesium 1.8 (1.7-2.4) mg/dl Total Bilirubin 0.8 (0.2-1.0) mg/dl AST 21 (13-39) U/L ALT 16 (7-52) U/L Alkaline Phosphatase 104 (34-104) U/L Troponin I High Sens 457.3 H* 330.5 H* D (0-14) pg/ml B-Natriuretic Peptide 436 H (0-100) pg/ml Total Protein 7.0 (6.0-8.3) gm/dl Albumin 3.9 (3.4-5.0) gm/dl Globulin 3.1 (2.5-4.0) gm/dl Albumin/Globulin Ratio 1.3 (0.9-2) Procalcitonin 20.25 H (0-0.5) ng/ml Administered Medications Vancomycin HCl 1,000 mg/ (Sodium Chloride) 520 mls @ 200 mls/hr IV NOW ONE Stop: 08/11/23 19:30 Last Admin: 08/11/23 17:37 Dose: 200 mls/hr Documented By: TARYN Discontinued Medications Cefepime HCl (Maxipime) 2,000 mg in 20 mls @ 5 mls/min IV NOW STA; Protocol Stop: 08/11/23 16:58 Last Admin: 08/11/23 17:04 Dose: 5 mls/min Documented By: TARYN Sodium Chloride (Nss) 1,000 mls @ 999 mls/hr IV .Q1H1M GABI Stop: 08/11/23 19:00 Last Admin: 08/11/23 17:05 Dose: 999 mls/hr Documented By: Infusion: 08/11/23 17:05 Dose: Infused Documented By: Admin: 08/11/23 17:04 Dose: 999 mls/hr Documented By: TARYN Sodium Chloride (Nss) 1,000 mls @ 999 mls/hr IV .Q1H1M ONE Stop: 08/11/23 18:18 Last Admin: 08/11/23 17:37 Dose: 999 mls/hr Documented By: TARYN Imaging Data Radiologist's Impression: Chest X-Ray 08/11/23 15:49 XR chest 1V portable HISTORY: 87 years-old Female Dyspnea acute shortness of breath COMPARISON: 08/05/2023 TECHNIQUE: AP view of the chest FINDINGS: Right upper lobe airspace consolidation is new from prior. Asymmetric right hilar prominence. The cardiac silhouette is enlarged. Mild retrocardiac left basilar densities. No pneumothorax or large pleural effusion. No overt pulmonary edema. Degenerative changes of the spine and left shoulder. Right shoulder arthroplasty. IMPRESSION: 1. Right upper lobe pneumonia. Follow-up imaging after treatment course is needed in order to document resolution. 2. Mild right hilar prominence may represent underlying lymphadenopathy. 3. Mild retrocardiac densities may represent atelectasis versus pneumonitis. ACT 112: Negative or not required by law. The above report was generated using voice recognition software. It may contain grammatical, syntax or spelling errors. Electronically signed by: Bobby Petit M.D. 08/11/2023 5:05 PM Discharge Plan Visit Data Chief Complaint: Shortness of Breath/Dyspnea ED Provider: Maggi Armendariz Discharge Problem: Acute dyspnea, Pneumonia, Non-ST elevation WI (NSTEMI), Sepsis, Elevated procalcitonin, Elevated brain natriuretic peptide (BNP) level, Acute hyperkalemia Forms Stand Alone Forms: [facility] [place] [employer] Prescriptions Prescriptions: No Action citalopram 10 mg Tablet 10 mg PO QAM calcium citrate-vitamin D3 250 mg calcium- 200 unit Tablet 2 tab PO QAM cyanocobalamin (vitamin B-12) 1,000 mcg/mL Solution 1,000 mcg IM MONTHLY diclofenac sodium 1 % gel 2 g TOPICAL QID PRN (Reason: Pain) ammonium lactate 12 % cream 1 applic TOPICAL DIRECTED PRN (Reason: dry skin,arms and legs) prednisone 5 mg tablet 5 mg PO DAILY polyethylene glycol 3350 [Miralax] 17 gram Powder In Packet 17 g PO DAILY PRN (Reason: constipation) Qty: 30 0RF sennosides-docusate sodium [Senokot-S] 8.6-50 mg Tablet 1 tab PO QAM Qty: 30 0RF lorazepam 0.5 mg tablet 0.5 mg PO HS multivitamin with minerals Tablet 1 tab PO DAILY fluticasone propionate [Flonase] 50 mcg/actuation [place],Suspension 2 spray INTRANASAL DAILY Rx Instructions: administer into each nostril loratadine [Claritin] 10 mg Tablet 10 mg PO DAILY PRN (Reason: Congestion) Saline Nasal 0.65 % Aerosol,[place] 1 spray INTRANASAL DIRECTED PRN (Reason: Congestion) benzonatate 100 mg capsule 100 mg PO TID PRN (Reason: cough) Qty: 30 0RF Referrals Referrals: Willem Estrada MD [Primary Care Provider] -
[2023-08-11 16:28] LABS: INR 0.9 (0.9-1.1); Prothrombin Time 10.2 Seconds (9.0-12.0)
[2023-08-11 16:36] LABS: Albumin Globulin Ratio 1.3 (0.9-2); Albumin Level 3.9 gm/dl (3.4-5.0); BUN Creatinine Ratio 36.1 (10-20); Bilirubin,Total 0.8 mg/dl (0.2-1.0); Calcium 9.4 mg/dl (8.6-10.3); Creatinine Clr Calc Pharmacy 33.7 ml/min; Est GFR (African American) 61.7 ml/min; Est GFR (Non-African American) 53.3 ml/min; Globulin 3.1 gm/dl (2.5-4.0); Magnesium 1.8 mg/dl (1.7-2.4); Potassium 5.2 mmol/L (3.5-5.1)
[2023-08-11 16:44] LABS: Hematocrit (blood only) 36.5 % (37.0-47.0); Hemoglobin 11.1 g/dl (12.0-16.0); Mean Corpuscular Hemoglobin 32.7 pg (25.0-34.0); Mean Corpuscular Hgb Conc 30.4 g/dL (32.0-36.0); Mean Corpuscular Volume 107.7 fL (80.0-100.0); Mean Platelet Volume 9.7 fL (9.4-12.4); Platelet Count 59 K/uL (130-400); RDW Coefficient of Variation 15.3 % (11.5-14.5); RDW Standard Deviation 58.2 fL (36.4-46.3); Red Blood Count 3.39 M/uL (4.20-5.40); White Blood Count 159.05 K/ul (4.8-10.8)
[2023-08-11 16:48] LABS: Troponin I High Sensitivity 457.3 pg/ml (0-14)
--- NOTE | 2023-08-11 16:54 | Electrocardiogram Report ---
Test Reason : Blood Pressure : / mmHG Vent. Rate : 116 BPM Atrial Rate : 116 BPM P-R Int : 146 ms QRS Dur : 070 ms QT Int : 306 ms P-R-T Axes : 052 -39 051 degrees QTc Int : 425 ms Poor data quality, interpretation may be adversely affected Sinus tachycardia Left anterior fascicular block Poor R wave progression, consider anterior MD vs. lead placement vs. LVH Abnormal ECG When compared with ECG of 17-JAN-2023 16:19, Vent. rate has increased BY 38 BPM Confirmed by Hitesh Blevins ([id number]) on 08/11/2023 4:54:13 PM Referred By: Confirmed By:Hitesh Blevins
[2023-08-11] MEDS ORDERED: VANCOMYCIN CONSULT ACTIVE PRN ×2 (16:55→22:05)
[2023-08-11] MEDS: SODIUM CHLORIDE 0.9% 1,000 ML IV SCH ×2 (17:04→22:52)
[2023-08-11] MEDS: CEFEPIME 2,000 MG/20 ML VIAL IV STA (17:04)
--- NOTE | 2023-08-11 17:07 | XRay Report ---
XR chest 1V portable HISTORY: 87 years-old Female Dyspnea acute shortness of breath COMPARISON: 08/05/2023 TECHNIQUE: AP view of the chest FINDINGS: Right upper lobe airspace consolidation is new from prior. Asymmetric right hilar prominence. The car diac silhouette is enlarged. Mild retrocardiac left basilar densities. No pneumothorax or large pleur al effusion. No overt pulmonary edema. Degenerative changes of the spine and left shoulder. Right catalina ulder arthroplasty. IMPRESSION: 1. Right upper lobe pneumonia. Follow-up imaging after treatment course is needed in order to documen t resolution. 2. Mild right hilar prominence may represent underlying lymphadenopathy. 3. Mild retrocardiac densities may represent atelectasis versus pneumonitis. ACT 112: Negative or not required by law. The above report was generated using voice recognition software. It may contain grammatical, syntax o r spelling errors. Electronically signed by: Bobby Petit M.D. 08/11/2023 5:05 PM
[2023-08-11 17:15] LABS: Anisocytosis Present; Basophils # (auto) 0.05 K/uL (0.00-0.20); Eosinophils # (auto) 0.03 K/uL (0.00-0.50); Immature Granulocytes # (auto) 0.49 K/uL (0.01-0.20); Immature Granulocytes % (auto) 0.3 %; Lymphocytes # (auto) 146.09 K/uL (1.20-3.40); Lymphocytes % (auto) 91.9 %; Monocytes # (auto) 3.88 K/uL (0.11-0.59); Monocytes % (auto) 2.4 %; Neutrophils # (auto) 8.51 K/uL (1.40-6.50); Neutrophils % (auto) 5.4 %; Polychromasia 1+; Smudge Cells Present
[2023-08-11] MEDS: VANCOMYCIN HCL 1,000 MG in SODIUM CHLORIDE 0.9% 500 ML IV ONE (17:37)
[2023-08-11] MEDS: SODIUM CHLORIDE 0.9% 1,000 ML IV ONE (17:37)
--- NOTE | 2023-08-11 17:49 | History & Physical Report ---
Date of Service August 11, 2023 Assessment & Plan (1) Pneumonia: (2) COVID-19: Plan: Patient is 87-year-old female with PMH CLL, HTN, anxiety, depression, osteoarthritis, gout, GERD presented to the ER with complaint of cough shortness of breath. 08/05/2023 +COVID-19 with unremarkable CXR. Symptoms progressed worsening cough and SOB and continued fevers. In ER T: 37C, P: 110, 135/72, R: 25, 93% on RA. WBC: 159 (was 129 on 07/15/23). Lactate: 1.1, procalcitonin: 20 CXR: Right upper lobe pneumonia. Mild right hilar prominence may represent underlying lymphadenopathy. Mild retrocardiac densities may represent atelectasis versus pneumonitis. In ER given 2L NSS, cefepime, vancomycin Blood cultures pending Upon admission exam noted to be tachypneic. DuoNeb and oxygen ordered with some improvement with decreased tachypnea DuoNebs, hypertonic nebs Supplemental oxygen as needed. Patient will require oxygen mask secondary to chronic nasal obstruction Obtain sputum culture if able Will broaden to Zosyn and vancomycin with immunocompromised status and possible aspiration MRSA swab pending IVF Continue home prednisone 5mg daily Incentive spirometry, flutter valve, percussion vest Mucinex CBC, BMP in am (3) Elevated troponin: Plan: Troponin: 457-->330 EKG: sinus tachycardia, rate 116. LAFB Denies CP Possible demand ischemia from hypoxia Trend troponin Echo EKG in am (4) Chronic lymphocytic leukemia: (5) Chronic anemia: Plan: Chronic thrombocytopenia Hypogammaglobulinemia WBC: 159 (was 129 on 07/15/23), Hgb: 11, Plt: 59 (at baseline) Receives IVIG monthly. Last was 07/16/[address] Vasquez (6) Anxiety and depression: Plan: Continue citalopram Hold lorazepam currently (7) Osteoarthritis: Plan: On chronic prednisone Continue prednisone 5mg daily DVT Prophylaxis SCDs (thrombocytopenia) Conditional Code as per discussion with pt, would like trial of CPR/chest compression and defibrillation. Does not want advanced airway or intubation Follows with Dr Estrada for routine care Pt was seen and care coordinated with Dr Felix. See addendum I spent a total of 80 minutes reviewing notes, outpatient records, labs, medication, coordinating, documenting and providing care for this patient excluding time spent in the performance of separately billed services. History of Present Illness Chief Complaint: SOB Primary Care Provider: Willem Estrada MD Patient is 87-year-old female with PMH CLL, HTN, anxiety, depression, osteoarthritis, gout, GERD presented to the ER with complaint of shortness of breath. History obtained from patient, patient's caregiver, patient's daughter as well as outpatient and inpatient chart review. Patient was seen at [facility] ER on 08/05/2023 for URI symptoms and chills and had +COVID-19 PCR and CXR at that time with no acute infiltrate. Patient has been home using OTC NyQuil and Tessalon Perles with limited relief. States chronic SOB with exertion however feeling more SOB. Patient states feeling short of breath with conversation. States his coughing a lot. States unable to expel much sputum but feels like needs to. States unable to expel is clear coloration. Denies hemoptysis. States home pulse ox with intermittent readings in 80's. Decreased appetite. Reports still having fevers, temperature 100 F. Reports fatigue and generalized weakness. Denies history of COVID-19 infection prior. Reports is up-to-date on COVID-19 vaccinations. Is on IVIG for CLL and last was given on 07/16/23. She has nasal obstruction secondary to mass that was recently biopsied. Is following with ENT. States has been doing a lot of mouth breathing. Denies N/V/D/C, GALLEGOS, dizziness, syncope, CP, palpitations, choking, abdominal pain, paresthesias, extremity edema, rashes, urinary symptoms. Allergies Allergy/AdvReac Type Severity Reaction Status Date / Time nitrofurantoin Allergy Unknown UNKNOWN Verified 08/05/23 22:15 PER GMG oxaprozin Allergy Unknown UNKNOWN Verified 08/05/23 22:15 PER GMG oxybutynin Allergy Unknown UNKNOWN Verified 08/05/23 22:15 PER GMG ciprofloxacin [From Cipro] AdvReac Intermediate Confusion Verified 08/05/23 22:15 melatonin AdvReac Intermediate OPPOSITE Verified 08/05/23 22:15 AFFECT mirabegron AdvReac Intermediate Hypertensio Verified 08/05/23 22:15 n Home Medications Medication Instructions Recorded Confirmed Type calcium citrate 250 mg 2 tab PO QAM 05/18/18 08/11/23 History calcium-vitamin D3 5 mcg (200 unit) tablet citalopram 10 mg tablet 10 mg PO QAM 05/18/18 08/11/23 History diclofenac sodium 1 % topical gel 2 g topical QID PRN Pain 02/20/21 08/11/23 History cyanocobalamin (vitamin B-12) 1,000 mcg IM MONTHLY 01/14/22 08/11/23 History 1,000 mcg/mL injection solution ammonium lactate 12 % topical cream 1 applic topical DIRECTED PRN 08/16/22 08/11/23 History dry skin,arms and legs prednisone 5 mg tablet 5 mg PO DAILY 01/18/23 08/11/23 History polyethylene glycol 3350 17 gram 17 g PO DAILY PRN constipation #30 01/19/23 08/11/23 Rx oral powder packet (Miralax) ea sennosides 8.6 mg-docusate sodium 1 tab PO QAM #30 tabs 01/19/23 08/11/23 Rx 50 mg tablet (Senokot-S) fluticasone propionate 50 2 spray intranasal DAILY 08/05/23 08/11/23 History mcg/actuation nasal spray,suspension loratadine 10 mg tablet (Claritin) 10 mg PO DAILY PRN Congestion 08/05/23 08/11/23 History lorazepam 0.5 mg tablet 0.5 mg PO HS 08/05/23 08/11/23 History multivitamin with minerals 1 tab PO DAILY 08/05/23 08/11/23 History sodium chloride 0.65 % nasal spray 1 spray intranasal DIRECTED PRN 08/05/23 08/11/23 History aerosol (Saline Nasal) Congestion benzonatate 100 mg capsule 100 mg PO TID PRN cough #30 caps 08/06/23 08/11/23 Rx Past Med/Surg History Medical History (Updated 08/11/23 @ 21:05 by Mirian Duval PA-C) Anxiety and depression Symptomatic anemia Anemia REZA (generalized anxiety disorder) Fracture of spine Closed tibia fracture Closed rib fracture Stress reaction GERD (gastroesophageal reflux disease) Diverticulosis of colon Osteoporosis Osteoarthritis Hypogammaglobulinemia, acquired History of squamous cell carcinoma Dyslipidemia Chronic lymphocytic leukemia Surgical History History of orthopedic surgery Status post hysterectomy Family History Other Cancer Diabetes Heart disease Social History Smoking Status: Never smoker Second Hand Exposure: No; Do You Dip or Chew Tobacco: No; Hx Alcohol Use: No Hx Substance Use: No Preferred Language: Lao Communication Ability: Effective Communication Ability Comment: uses i-pad Quality Compliance Manager Required: No Beliefs That Will Affect Care: None marital status: / Current Living Situation: Family Current Living Situation Comment: personal care givers Feels Safe at Home: Yes Assistive Devices: Stair Lift and Walker Review of Systems Review of Systems: All systems reviewed & are unremarkable except as noted in HPI & below Physical Exam Physical Exam: General: +distress with noted tachypnea, +chronic ill appearing, thin elderly female Head: normocephalic, atraumatic Eyes: PERRL, EOM's intact, conjunctiva non-injected, anicteric ENT: +hard of heraing, normal inspection external ears, nose, mucous membranes m ildly dry Neck: supple, trachea midline Lungs: +tachypnea, +SOB with speaking, RR: 24, 93% on RA, +rales RUL, +cough CV: RRR, no murmur, no pretibial edema Abd: normal BS, soft, non-tender Ext: no cyanosis, no calf tenderness Neuro: A&O x 3, no focal deficits noted, normal affect Skin: warm, dry, +chronic bilateral leg skin discoloration Results & Data Results & Data Vital Signs (Past 12 Hours) Vital Signs Temp Pulse Pulse Resp BP Pulse Ox O2 Del Method 08/11/23 16:07 114 H 08/11/23 15:49 110 H 25 H 93 Room Air 08/11/23 14:57 37.0 C 106 H 25 H 93 Room Air 08/11/23 14:57 93 Room Air 08/11/23 14:57 37.0 C 110 H 25 H 135/72 93 Room Air 08/11/23 14:57 Room Air Laboratory Results Short CBC 08/11/23 Range/Units 15:54 WBC 159.05 H* (4.8-10.8) K/ul Hgb 11.1 L (12.0-16.0) g/dl Hct 36.5 L (37.0-47.0) % Plt Count 59 L (130-400) K/uL BMP 08/11/23 15:54 Sodium 136 Potassium 5.2 H Chloride 101 Carbon Dioxide 25 BUN 35 H Creatinine 0.97 Glucose 128 H Calcium 9.4 Liver Function 08/11/23 Range/Units 15:54 Total Bilirubin 0.8 (0.2-1.0) mg/dl AST 21 (13-39) U/L ALT 16 (7-52) U/L Alkaline Phosphatase 104 (34-104) U/L Albumin 3.9 (3.4-5.0) gm/dl Diagnostic Findings Chest X-Ray 08/11/23 15:49 XR chest 1V portable HISTORY: 87 years-old Female Dyspnea acute shortness of breath COMPARISON: 08/05/2023 TECHNIQUE: AP view of the chest FINDINGS: Right upper lobe airspace consolidation is new from prior. Asymmetric right hilar prominence. The cardiac silhouette is enlarged. Mild retrocardiac left basilar densities. No pneumothorax or large pleural effusion. No overt pulmonary edema. Degenerative changes of the spine and left shoulder. Right shoulder arthroplasty. IMPRESSION: 1. Right upper lobe pneumonia. Follow-up imaging after treatment course is needed in order to document resolution. 2. Mild right hilar prominence may represent underlying lymphadenopathy. 3. Mild retrocardiac densities may represent atelectasis versus pneumonitis. ACT 112: Negative or not required by law. The above report was generated using voice recognition software. It may contain grammatical, syntax or spelling errors. Electronically signed by: Bobby Petit M.D. 08/11/2023 5:05 PM Supervising Physician Co-Signing Physician Notes I have seen and discussed the case with the collaborating ROSALIO. I agree with the above H&P. I have reviewed and confirmed the patients medical history, the findings on physical examination, and the patients diagnosis and treatment plan with Simin SANTAMARIA and agree with the information documented. In short, Ms. Adams is an 87-year-old female with PMH CLL, HTN, anxiety, depression, osteoarthritis, gout, GERD admitted for acute hypoxic respiratory failure iso superimposed bacterial pneumonia on COVID19 infection. Patient with immunocompromised state. Saturating well on RA but uncomfortable/dyspnic at rest. Patient states this is ongoing 48 hours. Subjective fever and chills as well as general malaise. Reports difficulty bring up mucous. Denies chest pain palpitations. Exam notable for rhonchous cough and airway, more comfortable on oxymask. Unable to breath through NC 2/2 intranasal mass. Thin and cachectic. Labs with acute on chronic leukocytosis 2/2 CLL, stable macrocytic anemia, and acute on chronic thrombocytopenia. Plan to start broad coverage with Vanc/Cefepime, MRSA nare pending. Pulm toilet, duonebs and hypertonic nebs to aid in sputum production. Repeat BMP after volume resuscitation given hyperkalemia. Rest of plan as above. I spent a total of 35 minutes coordinating, documenting, and providing care for this patient excluding time spent in the performance of separately billed services. All of the aforementioned completed while collaborating with the assigned attending physician for a full treatment plan. Please see their addendum for further details.
[2023-08-11 18:44] LABS: Adenovirus PCR Not Detected (NotDetected); Bordetella parapertussis PCR Not Detected (NotDetected); Bordetella pertussis PCR Not Detected (NotDetected); Chlamydia pneumoniae PCR Not Detected (NotDetected); Coronavirus 229E PCR Not Detected (NotDetected); Coronavirus HKU1 PCR Not Detected (NotDetected); Coronavirus NL63 PCR Not Detected (NotDetected); Coronavirus OC43PCR Not Detected (NotDetected); Human Metapneumovirus PCR Not Detected (NotDetected); Influenza A PCR Not Detected (NotDetected); Influenza B PCR Not Detected (NotDetected); Mycoplasma pneumoniae PCR Not Detected (NotDetected); Parainfluenza Virus 1 PCR Not Detected (NotDetected); Parainfluenza Virus 2 PCR Not Detected (NotDetected); Parainfluenza Virus 3 PCR Not Detected (NotDetected); Parainfluenza Virus 4 PCR Not Detected (NotDetected); Respiratory Syncytial VirusPCR Not Detected (NotDetected); Rhinovirus/Enterovirus PCR Not Detected (NotDetected)
[2023-08-11 19:14] LABS: Coronavirus CoV-2 (COVID19)PCR DETECTED (NotDetected)
[2023-08-11] MEDS: ALBUT/IPRATROP 3MG/0.5MG NEB 3 ML VIAL NEB STA (21:05)
[2023-08-11] MEDS ORDERED: ONDANSETRON INJ 2 MG/ML 2 ML VIAL IV PRN (22:05)
[2023-08-11] MEDS ORDERED: SODIUM CHLORIDE 0.65% NA SOLN 45 ML (OCEAN) PRN (22:05)
[2023-08-11] MEDS ORDERED: AMMONIUM LACTATE 12% LOTION 225 GM BTL EXT PRN (22:25)
[2023-08-11] MEDS: guaiFENesin 600 MG TABCR PO SCH (22:28)
[2023-08-12] MEDS: PIPERACILLIN/TAZOBACTAM 4.5 GM in DEXTROSE 5% MINI-B 100 ML IV SCH (00:51)
[2023-08-12] MEDS: ALBUT/IPRATROP 3MG/0.5MG NEB 3 ML VIAL NEB SCH (06:43)
[2023-08-12] MEDS: SODIUM CHLOR 7% 4 ML NEB NEB SCH (06:43)
[2023-08-12] MEDS: FLUTICASONE PROPIONATE NA SPR 16 GM BTL NAE SCH (08:28)
[2023-08-12] MEDS: DOCUSATE SODIUM/SENNA 50/8.6MG TAB PO SCH (08:29)
[2023-08-12] MEDS: CEROVITE ADV FORMULA TAB PO SCH (08:30)
[2023-08-12] MEDS: predniSONE 5 MG TAB PO SCH (08:30)
[2023-08-12] MEDS: CALCIUM 600MG + VIT D 400 IU TAB PO SCH (08:30)
[2023-08-12] MEDS: CITALOPRAM 20 MG TAB PO SCH (08:33)
[2023-08-12 08:49] LABS: Hematocrit (blood only) 31.3 % (37.0-47.0); Hemoglobin 9.3 g/dl (12.0-16.0); Mean Corpuscular Hemoglobin 32.4 pg (25.0-34.0); Mean Corpuscular Hgb Conc 29.7 g/dL (32.0-36.0); Mean Corpuscular Volume 109.1 fL (80.0-100.0); Platelet Count 41 K/uL (130-400); RDW Coefficient of Variation 15.3 % (11.5-14.5); RDW Standard Deviation 59.2 fL (36.4-46.3); Red Blood Count 2.87 M/uL (4.20-5.40); White Blood Count 122.23 K/ul (4.8-10.8)
[2023-08-12 08:59] LABS: BUN Creatinine Ratio 33.8 (10-20); Calcium 7.7 mg/dl (8.6-10.3); Est GFR (African American) 81.6 ml/min; Est GFR (Non-African American) 70.4 ml/min; Potassium 4.2 mmol/L (3.5-5.1)
[2023-08-12 09:11] LABS: Troponin I High Sensitivity 397.7 pg/ml (0-14)
[2023-08-12 09:22] LABS: Basophils # (auto) 0.02 K/uL (0.00-0.20); Eosinophils # (auto) 0.02 K/uL (0.00-0.50); Immature Granulocytes # (auto) 0.44 K/uL (0.01-0.20); Immature Granulocytes % (auto) 0.4 %; Lymphocytes # (auto) 111.22 K/uL (1.20-3.40); Monocytes # (auto) 3.25 K/uL (0.11-0.59); Monocytes % (auto) 2.7 %; Neutrophils # (auto) 7.28 K/uL (1.40-6.50); Neutrophils % (auto) 5.9 %; Polychromasia 1+
[2023-08-12 09:27] LABS: Smudge Cells Present
--- NOTE | 2023-08-12 12:13 | Pharmacy Report ---
Pharmacy PK ABX Note - Date of Service August 12, 2023 - Assessment and Plan Assessment * 87 year old F receiving VANCOMYCIN + ZOSYN for treatment of possible concurrent bacterial pneumonia in setting of COVID, possible aspiration. * Patient does have h/o immunocompromise (CLL). CXR read as RUL pneumonia. * Pertinent microbiologic data includes: Positive MRSA Nasal Swab, elevated procal 20.3, blood and sputum cx's pending * Day # 1 of antimicrobial therapy. Plan Vancomycin * Loading dose: 1000 mg IV x 1 * Maintenance dose: 1000 mg IV every 24 hours * Regimen is predicted to achieve target AUC/KINDRA of 400-600 mg/L.hr * Level ordered for: 08/14/23 AM Pharmacy will continue to follow and will adjust dose/frequency as necessary. Thank you. Pharmacy has transitioned to AUC monitoring for vancomycin. AUC/KINDRA is the preferred PK/PD target and is associated with decreased risk of nephrotoxicity compared to traditional trough targets.
[2023-08-12] MEDS ORDERED: VANCOMYCIN HCL 750 MG in SODIUM CHLORIDE 0.9% 250 ML IV SCH (14:00)
[2023-08-12] MEDS ORDERED: VANCOMYCIN HCL 750 MG in SODIUM CHLORIDE 0.9% 500 ML IV SCH (14:00)
[2023-08-12] MEDS: VANCOMYCIN HCL 1,000 MG in SODIUM CHLORIDE 0.9% 250 ML IV SCH (14:29)
[2023-08-12 16:42] LABS: Appearance Urine Cloudy (Clear); Blood Urine 2+ (Negative); Cast Urine Automated 0 /lpf (0-5); Color Urine Dark Yellow; Epithelial Cell Urine Auto 0-5 /lpf (0-5); Glucose Urine UA Negative (Negative); Ketones Urine Negative (Negative); Leukocyte Esterase Urine 2+ (Negative); Nitrite Urine Negative (Negative); Protein Urine Trace (Negative); Specific Gravity Urine 1.019 (1.000-1.030); Urobilinogen Urine Positive (Negative); WBC Urine Automated 0 /hpf (0-5)
[2023-08-12 16:56] LABS: Bilirubin Urine 1+ (Negative)
--- NOTE | 2023-08-12 16:59 | Hospitalist Progress Note ---
Date of Service August 12, 2023 Assessment & Plan (1) Pneumonia: Plan: Patient is 87-year-old female with PMH CLL, HTN, anxiety, depression, osteoarthritis, gout, GERD presented to the ER with complaint of cough shortness of breath. 08/05/2023 +COVID-19 with unremarkable CXR. Symptoms progressed worsening cough and SOB and continued fevers. Presented with increasing shortness of breath and cough In ER T: 37C, P: 110, 135/72, R: 25, 93% on RA. WBC: 159 (was 129 on 07/15/23). Lactate: 1.1, procalcitonin: 20 CXR: Right upper lobe pneumonia. Mild right hilar prominence may represent underlying lymphadenopathy. Mild retrocardiac densities may represent atelec tasis versus pneumonitis. In ER given 2L NSS, cefepime, vancomycin DuoNebs, hypertonic nebs Supplemental oxygen as needed. Patient will require oxygen mask secondary to chronic nasal obstruction Blood cultures pending Obtain sputum culture-moderate normal joseph final report to Will broaden to Zosyn and vancomycin with immunocompromised status and possible aspiration MRSA swab -positive Received cautious amount of intravenous fluid IVF Continue home prednisone 5mg daily Incentive spirometry, flutter valve, percussion vest Cough medicine as needed Clinically a little better and will continue current management (2) COVID-19: Plan: COVID-19 infection noted initially on 05 August of this year COVID remains positive on fifth of this month May be complicating current pneumonia Remains on room air with normal saturation (3) Elevated troponin: Plan: Troponin: 457-->330 EKG: sinus tachycardia, rate 116. LAFB Denies CP Possible demand ischemia from hypoxia Troponin seems to be improving slightly Echo of the heart showed-EF 60 to 65%, there is mild concentric LVH, LV wall motion is normal, grade 1 vascular dysfunction, mild aortic regurgitation, there is mild tricuspid regurgitation, Doppler finding do not suggest pulmonary hypertension Doubt any ACS (4) Chronic lymphocytic leukemia: Plan: Has chronic lymphocytic leukemia WBC: 159 (was 129 on 07/15/23), Hgb: 11, Plt: 59 (at baseline) Receives IVIG monthly. Last was 07/16/[address] Vasquez (5) Chronic anemia: Plan: Chronic thrombocytopenia Hypogammaglobulinemia (6) Anxiety and depression: Plan: Continue citalopram Hold lorazepam currently (7) Osteoarthritis: Plan: On chronic prednisone Continue prednisone 5mg daily DVT Prophylaxis SCDs (thrombocytopenia) Conditional Code as per discussion with pt, would like trial of CPR/chest compression and defibrillation. Does not want advanced airway or intubation Follows with Dr Estrada for routine care Admission and Anticipated Discharge Date Admission Date: August 11, 2023 Subjective 08/12/2023 The patient was seen and examined in emergency room She has been feeling little better but the cough has been ongoing Shortness of breath is better She will need to be small amount of food at one time and may be multiple times a day Review of Systems Review of Systems: All systems reviewed and are unremarkable except as noted below Respiratory: Minimal shortness of breath at rest Physical Exam Physical Exam: Lying in bed with minimal shortness of breath Constitutional: + ill appearing and average body habitus Eyes: PERRL, conjunctivae normal, anicteric sclerae ENMT: external ear and nose normal, oropharynx normal Neck: trachea midline, no thyromegaly Respiratory: + respiratory distress (Minimal distress at rest) Auscultation: + diminished lung sounds and + crackles (Bibasilar crackles and more on the right than the left) Cardiovascular: Rate/Rhythm: regular rate and regular rhythm; not tachycardic Heart Sounds: normal S1, normal S2 and + murmur (2/6 ESM over aortic) Extremities: no edema Gastrointestinal (Abdomen): Inspection/Auscultation: normal bowel sounds; abdomen not distended Percussion/Palpation: abdomen soft; abdomen nontender Musculoskeletal: No acute arthritis involving any of the joint Neurologic: normal touch/pain/proprioception and moves all extremities; no focal motor deficits Lymphatic: no cervical or axillary lymphadenopathy Results & Data Results & Data Vital Signs (Past 12 Hours) Vital Signs Pulse Pulse Resp BP Pulse Ox O2 Del Method 08/12/23 16:02 96 H 23 142/73 H 97 Room Air 08/12/23 15:32 101 H 08/12/23 14:56 91 H 22 97 Room Air 08/12/23 14:33 101 H 24 108/75 95 Room Air 08/12/23 14:04 92 08/12/23 11:02 90 24 97 Room Air 08/12/23 09:57 92 H 20 117/76 95 Room Air 08/12/23 08:08 Room Air 08/12/23 07:25 113 H 08/12/23 06:43 99 H 24 95 Room Air 08/12/23 06:41 114 H 22 141/75 H 97 Room Air Laboratory Results Short CBC 08/12/23 Range/Units 08:10 WBC 122.23 H* (4.8-10.8) K/ul Hgb 9.3 L (12.0-16.0) g/dl Hct 31.3 L (37.0-47.0) % Plt Count 41 L (130-400) K/uL BMP 08/12/23 08:10 Sodium 137 Potassium 4.2 Chloride 108 H Carbon Dioxide 22 BUN 26 H Creatinine 0.77 Glucose 138 H Calcium 7.7 L Urine 08/12/23 Range/Units 16:04 Urine Color Dark Yellow Urine Appearance Cloudy A (Clear) Urine pH 7.0 (4.5-7.5) Ur Specific [place] 1.019 (1.000-1.030) Urine Protein Trace H (Negative) Urine Glucose (UA) Negative (Negative) Medications Administered Current Inpatient Medications Acetaminophen (Acetaminophen 325 Mg Tab) 650 mg PO Q4H PRN PRN Reason: Pain or Fever Stop: 09/10/23 22:04 Albuterol (Albut/Ipratrop 3mg/0.5mg Neb 3 Ml Vial) 3 ml NEB QIDR [facility]; Protocol Stop: 09/11/23 06:59 Last Admin: 08/12/23 14:56 Dose: 3 ml Benzonatate (Benzonatate 100 Mg Capsule) 100 mg PO TID PRN PRN Reason: cough Stop: 09/10/23 22:04 Calcium/Vitamin D (Calcium 600mg + Vit D 400 Iu Tab) 2 tab PO QAM [facility] Stop: 09/11/23 08:59 Last Admin: 08/12/23 08:30 Dose: 2 tab Citalopram Hydrobromide (Citalopram 20 Mg Tab) 10 mg PO QAM [facility] Stop: 09/11/23 08:59 Last Admin: 08/12/23 08:33 Dose: 10 mg Fluticasone Propionate (Fluticasone Propionate Na Spr 16 Gm Btl) 2 sprays NATHAN DAILY [facility] Stop: 09/11/23 08:59 Last Admin: 08/12/23 08:28 Dose: 2 sprays Guaifenesin (Guaifenesin 600 Mg Tabcr) 1,200 mg PO Q12 [facility] Stop: 09/10/23 22:04 Last Admin: 08/12/23 08:29 Dose: 1,200 mg Piperacillin Sod/Tazobactam (Sod 4.5 gm/ Dextrose) 100 mls @ 25 mls/hr IV Q8H [facility]; Protocol Stop: 08/19/23 00:00 Last Admin: 08/12/23 15:57 Dose: 25 mls/hr Vancomycin HCl 1,000 mg/ (Sodium Chloride) 270 mls @ 200 mls/hr IV Q24H [facility] Stop: 08/19/23 13:59 Last Infusion: 08/12/23 16:05 Dose: Infused Lactic Acid (Ammonium Lactate 12% Lotion 225 Gm Btl) 1 gm EXT DAILY PRN PRN Reason: dry skin,arms and legs Stop: 09/10/23 22:24 Loratadine (Loratadine 10 Mg Tab) 10 mg PO DAILY PRN PRN Reason: Congestion Stop: 09/10/23 22:04 Miscellaneous Information (Vancomycin Consult Active) 1 each N/A UD PRN PRN Reason: Consult Stop: 09/10/23 22:04 Multivitamins/Minerals (Cerovite Adv Formula Tab) 1 tab PO DAILY [facility] Stop: 09/11/23 08:59 Last Admin: 08/12/23 08:30 Dose: 1 tab Ondansetron HCl (Ondansetron Inj 2 Mg/Ml 2 Ml Vial) 4 mg IV Q6H PRN PRN Reason: Nausea Stop: 09/10/23 22:04 Polyethylene Glycol (Polyethylene (Miralax) 17 Gm Pack) 17 gm PO DAILY PRN PRN Reason: Constipation Stop: 09/10/23 22:04 Prednisone (Prednisone 5 Mg Tab) 5 mg PO DAILY [facility] Stop: 09/11/23 08:59 Last Admin: 08/12/23 08:30 Dose: 5 mg Senna/Docusate Sodium (Docusate Sodium/Senna 50/8.6mg Tab) 1 tab PO QAM [facility] Stop: 09/11/23 08:59 Last Admin: 08/12/23 08:29 Dose: 1 tab Sodium Chloride (Sodium Chlor 7% 4 Ml Neb) 4 ml NEB BIDR [facility] Stop: 09/11/23 06:59 Last Admin: 02/06/24 06:43 Dose: 4 ml Sodium Chloride (Sodium Chloride 0.65% Na Soln 45 Ml ([place])) 1 sprays NA DAILY PRN PRN Reason: Congestion Stop: 09/10/23 22:04
[2023-08-12 17:29] LABS: Bacteria Urine Automated 3+ (Negative); RBC Urine Automated 0-4 /hpf (0-4)
[2023-08-12] MEDS: DOXYCYCLINE HYCLATE 100 MG in DEXTROSE 5% MINI-B 100 ML IV SCH (20:22)
[2023-08-13 07:32] LABS: BUN Creatinine Ratio 28.8 (10-20); Calcium 7.8 mg/dl (8.6-10.3); Creatinine Clr Calc Pharmacy 46.5 ml/min; Est GFR (African American) 93.4 ml/min; Est GFR (Non-African American) 80.6 ml/min; Magnesium 1.7 mg/dl (1.7-2.4); Phosphorus 2.3 mg/dl (2.5-4.9); Potassium 4.2 mmol/L (3.5-5.1)
[2023-08-13 07:46] LABS: Hematocrit (blood only) 29.1 % (37.0-47.0); Hemoglobin 8.8 g/dl (12.0-16.0); Mean Corpuscular Hemoglobin 32.7 pg (25.0-34.0); Mean Corpuscular Hgb Conc 30.2 g/dL (32.0-36.0); Mean Corpuscular Volume 108.2 fL (80.0-100.0); Mean Platelet Volume 10.2 fL (9.4-12.4); Platelet Count 30 K/uL (130-400); Red Blood Count 2.69 M/uL (4.20-5.40); White Blood Count 93.52 K/ul (4.8-10.8)
[2023-08-13 08:11] LABS: Basophils # (auto) 0.04 K/uL (0.00-0.20); Eosinophils % (auto) 0.1 %; Immature Granulocytes % (auto) 0.2 %; Lymphocytes # (auto) 86.27 K/uL (1.20-3.40); Lymphocytes % (auto) 92.2 %; Macrocytosis Present; Monocytes # (auto) 1.64 K/uL (0.11-0.59); Monocytes % (auto) 1.8 %; Neutrophils # (auto) 5.27 K/uL (1.40-6.50); Neutrophils % (auto) 5.7 %; Polychromasia 1+; Smudge Cells Present
--- NOTE | 2023-08-13 15:23 | Hospitalist Progress Note ---
Date of Service August 13, 2023 Assessment & Plan (1) Pneumonia: Plan 87-year-old female with PMH of CLL, HTN, anxiety, depression, osteoarthritis, gout, GERD presented to the ER with complaint of cough & shortness of breath. 08/05/2023 +COVID-19 with unremarkable CXR. Symptoms progressed with worsening cough and SOB and continued fevers. She is being managed for the following: Recent infection with COVID-19 virus Likely superimposed bacterial pneumonia Pneumonia in an immunocompromised patient Presented with increasing shortness of breath and cough, recent history of infection with COVID-19 virus. In ER T: 37C, P: 110, 135/72, R: 25, 93% on RA. WBC: 159 (was 129 on 07/15/23). Lactate: 1.1, procalcitonin: 20. MRSA positive. CXR: Right upper lobe pneumonia. Mild right hilar prominence may represent underlying lymphadenopathy. Mild retrocardiac densities may represent atelectasis versus pneumonitis. In ER given 2L NSS, cefepime, vancomycin Patient is still with significant cough and sputum production, patient appears bothered with cough. Continue DuoNebs scheduled, Tessalon Perle, hypertonic saline nebs twice daily. Will add budesonide twice daily. Will add cough suppressant. Antibiotic was broadened to Zosyn and vancomycin given immunocompromised status and possible aspiration. Continue doxycycline 2/6, Zosyn 2/6 and vancomycin 2/5 Pulmonology consult, await recommendation. Follow admitting sputum and blood culture. WBC trending down. Continue home prednisone 5 mg daily. Continue with incentive spirometry and flutter valve. Not significantly better per patient. Monitor clinically. Infection due to COVID-19: COVID-19 infection noted initially on 05 August of this year. COVID remains positive on fifth of this month May be complicating current pneumonia Remains on room air with normal saturation Elevated troponin: Likely demand ischemia from hypoxemia secondary to acute illness. Troponin elevated at 457, down trended. Patient with no chest pain. EKG with sinus tachycardia. Echo with EF of 60 to 65%, LV wall motion normal, grade 1 medical dysfunction. Continue telemetry. Chronic lymphocytic leukemia: Has chronic lymphocytic leukemia WBC: 159 (was 129 on 07/15/23), Hgb: 11, Plt: 59 (at baseline) Receives IVIG monthly. Last was 07/16/[address] Vasquez Other chronic medical conditions: Continue with/resume home meds as and when able Chronic anemia/chronic thrombocytopenia/hypogammaglobulinemia - Stable. Anxiety and depression: Continue home citalopram. Lorazepam on hold currently. Osteoarthritis: Continue home prednisone. DVT prophylaxis: SCDs, re- thrombocytopenia Conditional Code - would like trial of CPR/chest compression and defibrillation. Does not want advanced airway or intubation Follows with Dr Estrada for routine care Admission and Anticipated Discharge Date Admission Date: August 11, 2023 Subjective Patient was seen and examined at bedside. Patient was sitting up in bed, on room air, not in any acute distress. Patient reports cough slightly getting better but is still significant and is bothering her. Reports eating okay and moving bowels okay, denies other review of symptoms. Has been afebrile. Physical Exam Physical Exam: GENERAL: Alert and oriented x3. NAD, on RA. Ill/frail/weak appearing. HEENT: No pallor, no icterus. Pupils equal, round and reactive to light. Oral mucosa moist. NECK: No JVD, no neck masses. HEART: S1 and S2 heard. Regular rate and rhythm. + murmur, no gallop. RESPIRATORY SYSTEM: Normal AP diameter. No accessory muscle use. No wheezing, BB crackles. ABDOMEN: Soft, bowel sounds present, nontender, no distention. CENTRAL NERVOUS SYSTEM: No facial droop. Speech is clear. Obeys simple commands. Moves extremities. EXTREMITIES: No edema, no erythema seen. BLE chr skin changes and discoloration noted. Results & Data Results & Data Vital Signs (Past 12 Hours) Vital Signs Pulse Pulse Resp BP Pulse Ox O2 Del Method 08/13/23 14:39 97 H 18 95 Room Air 08/13/23 11:32 97 H 24 125/65 98 Room Air 08/13/23 11:16 85 16 97 Room Air 08/13/23 10:27 Room Air 08/13/23 07:29 101 H 08/13/23 06:55 88 16 98 Room Air 08/13/23 05:40 82 20 130/77 98 Room Air
[2023-08-13] MEDS: guaiFENesin/DEXTROM SYRUP 200MG/20MG 10ML UDC PO SCH (17:45)
[2023-08-13] MEDS: POT PHOSPHATE MONOBASIC W/ SOD TAB PO SCH (17:46)
[2023-08-13] MEDS: BUDESONIDE 0.5 MG/2 ML VIAL (PULMICORT) NEB SCH (19:52)
[2023-08-14 07:20] LABS: Hematocrit (blood only) 29.6 % (37.0-47.0); Mean Corpuscular Hemoglobin 33.2 pg (25.0-34.0); Mean Corpuscular Hgb Conc 30.4 g/dL (32.0-36.0); Mean Corpuscular Volume 109.2 fL (80.0-100.0); Mean Platelet Volume 10.4 fL (9.4-12.4); Platelet Count 34 K/uL (130-400); RDW Coefficient of Variation 14.8 % (11.5-14.5); RDW Standard Deviation 58.2 fL (36.4-46.3); Red Blood Count 2.71 M/uL (4.20-5.40)
[2023-08-14 07:33] LABS: BUN Creatinine Ratio 24.3 (10-20); Calcium 8.2 mg/dl (8.6-10.3); Creatinine Clr Calc Pharmacy 42.8 ml/min; Est GFR (African American) 91.6 ml/min; Magnesium 1.6 mg/dl (1.7-2.4); Phosphorus 2.7 mg/dl (2.5-4.9); Potassium 3.9 mmol/L (3.5-5.1)
--- NOTE | 2023-08-14 08:20 | Pharmacy Report ---
Pharmacy PK ABX Note - Date of Service August 14, 2023 - Assessment and Plan Assessment * 87 year old F receiving vancomycin, Zosyn, and doxycycline for treatment of possible concurrent bacterial pneumonia in setting of COVID, possible aspiration. * Patient does have h/o immunocompromise (CLL). CXR read as RUL pneumonia. * Pertinent microbiologic data includes: Positive MRSA Nasal Swab, blood and sputum cultures show no growth to date. * Renal function stable. * Pulmonology consulted. * Day # 4 of antimicrobial therapy. Plan Vancomycin * Current regimen: 1000 mg IV every 24 hours * Random level obtained 08/14/23 resulted as 8.8 mcg/mL. This is predicted to achieve target AUC/KINDRA of 400-600 mg/L.hr. However, will adjust to dose in order to increase likelihood of target AUC/KINDRA attainment. * Change to 1250 mg IV every 24 hours * Predicted AUC at steady state: 520 mg/L.hr * Will repeat level in the next 48-72 hours if therapy is continued and/or change in patient clinical status Zosyn * 4.5 g IV q8h - appropriately dosed for indication/renal function Doxycycline * 100 mg IV q12h - appropriately dosed Pharmacy will continue to follow and will adjust dose/frequency as necessary. Thank you. Pharmacy has transitioned to AUC monitoring for vancomycin. AUC/KINDRA is the preferred PK/PD target and is associated with decreased risk of nephrotoxicity compared to traditional trough targets.
[2023-08-14] MEDS ORDERED: VANCOMYCIN HCL 1,250 MG in SODIUM CHLORIDE 0.9% 250 ML IV SCH (09:00)
[2023-08-14] MEDS: MAGNESIUM SULFATE / D5W 1 GM/100 ML BAG IV SCH (10:02)
--- NOTE | 2023-08-14 12:39 | Pulmonary Consultation ---
Date of Consultation August 14, 2023 Assessment & Plan (1) Pneumonia: Continue with broad-spectrum antibiotics. Continue with efforts at pulmonary clearance with flutter valve and hypertonic saline. Will obtain CT chest to evaluate for underlying mass and pleural effusion. (2) Acute dyspnea: Dyspnea improving. Patient notes that she has significant nocturnal dyspnea. Will obtain an overnight pulse oximetry on room air. (3) Chronic lymphocytic leukemia: Patient with significant leukocytosis likely secondary to leukemoid reaction in the setting of CLL. Plan Thank you for the consult. Will follow. History of Present Illness Reason for Consultation: Pneumonia Attending Physician: Bety Batres MD History of Present Illness 87-year-old female with a history of CLL, sensorineural hearing loss and anxiety who presented to the hospital due to ongoing cough and shortness of breath for the past week. On x-ray she was found to have a right upper lobe pneumonia. She notes she has persistent cough with occasional green sputum production. She has trouble sleeping at night due to severe cough. She feels slightly better today compared to yesterday. She denies any subjective fevers or chills. She is short of breath with exertion. She was also found to be COVID-19 positive. Sputum culture obtained from 08/11/2023 revealed moderate normal joseph. She is currently on Zosyn, doxycycline and vancomycin. MRSA screen was positive. Her children are at bedside and able to give collateral history. Allergies Allergy/AdvReac Type Severity Reaction Status Date / Time nitrofurantoin Allergy Unknown UNKNOWN Verified 08/05/23 22:15 PER [facility]G oxaprozin Allergy Unknown UNKNOWN Verified 08/05/23 22:15 PER [facility]G oxybutynin Allergy Unknown UNKNOWN Verified 08/05/23 22:15 PER [facility]G ciprofloxacin [From Cipro] AdvReac Intermediate Confusion Verified 08/05/23 22:15 melatonin AdvReac Intermediate OPPOSITE Verified 08/05/23 22:15 AFFECT mirabegron AdvReac Intermediate Hypertensio Verified 08/05/23 22:15 n Home Medications Medication Instructions Recorded Confirmed Type calcium citrate 250 mg 2 tab PO QAM 05/18/18 08/11/23 History calcium-vitamin D3 5 mcg (200 unit) tablet citalopram 10 mg tablet 10 mg PO QAM 05/18/18 08/11/23 History diclofenac sodium 1 % topical gel 2 g topical QID PRN Pain 02/20/21 08/11/23 History cyanocobalamin (vitamin B-12) 1,000 mcg IM MONTHLY 01/14/22 08/11/23 History 1,000 mcg/mL injection solution ammonium lactate 12 % topical cream 1 applic topical DIRECTED PRN 08/16/22 08/11/23 History dry skin,arms and legs prednisone 5 mg tablet 5 mg PO DAILY 01/18/23 08/11/23 History polyethylene glycol 3350 17 gram 17 g PO DAILY PRN constipation #30 01/19/23 08/11/23 Rx oral powder packet (Miralax) ea sennosides 8.6 mg-docusate sodium 1 tab PO QAM #30 tabs 01/19/23 08/11/23 Rx 50 mg tablet (Senokot-S) fluticasone propionate 50 2 spray intranasal DAILY 08/05/23 08/11/23 History mcg/actuation nasal spray,suspension loratadine 10 mg tablet (Claritin) 10 mg PO DAILY PRN Congestion 08/05/23 08/11/23 History lorazepam 0.5 mg tablet 0.5 mg PO HS 08/05/23 08/11/23 History multivitamin with minerals 1 tab PO DAILY 08/05/23 08/11/23 History sodium chloride 0.65 % nasal spray 1 spray intranasal DIRECTED PRN 08/05/23 08/11/23 History aerosol (Saline Nasal) Congestion benzonatate 100 mg capsule 100 mg PO TID PRN cough #30 caps 08/06/23 08/11/23 Rx Patient History Medical History (Updated 08/11/23 @ 21:05 by Mirian Duval PA-C) Anxiety and depression Symptomatic anemia Anemia REZA (generalized anxiety disorder) Fracture of spine Closed tibia fracture Closed rib fracture Stress reaction GERD (gastroesophageal reflux disease) Diverticulosis of colon Osteoporosis Osteoarthritis Hypogammaglobulinemia, acquired History of squamous cell carcinoma Dyslipidemia Chronic lymphocytic leukemia Surgical History History of orthopedic surgery Status post hysterectomy Family History Other Cancer Diabetes Heart disease Social History Smoking Status: Never smoker Second Hand Exposure: No; Do You Dip or Chew Tobacco: No; Hx Alcohol Use: Yes Alcohol type: beer Hx Substance Use: No Preferred Language: Occitan Communication Ability: Effective Communication Ability Comment: uses i-pad 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 Thin and frail appearing. Eyes: Pupils are equal round and reactive to light. Conjunctivae are normal. Anicteric sclera. Ears nose, mouth and throat: Mallampati class 2. Normal posterior oropharynx. Uvula is midline. Neck: Trachea is midline. Visual inspection is normal. Respiratory: Diffuse crackles noted in the right lung. Mild tachypnea. No increased work of breathing. Cardiovascular: Regular rate and rhythm. No murmurs. No edema. Gastrointestinal: Normal bowel sounds, soft, nontender and nondistended. No hepatosplenomegaly noted. Musculoskeletal: No cyanosis. Patient is able to move all extremities. Strength is 5 out of 5 in the upper and lower extremities. Skin: No rashes, warm dry and intact. Diffuse purpura. Neurologic: No obvious focal neurological deficits seen. Psychiatric: Alert and oriented x3 with a euthymic affect. Results & Data Results & Data Vital Signs (Past 12 Hours) Vital Signs Temp Pulse Pulse Resp BP Pulse Ox O2 Del Method 08/14/23 12:16 97 H 18 95 Nasal Cannula 08/14/23 11:39 36.6 C 98 H 18 141/58 H 92 Room Air 08/14/23 10:08 Room Air 08/14/23 07:41 96 H 18 95 Room Air 08/14/23 07:25 78 08/14/23 04:31 151/72 H 08/14/23 03:10 36.4 C L 117 H 20 178/79 H 92 Room Air PG Care Time/CCT Total # of Minutes Spent Total Time Spent with Patient: Total time spent is greater than 50% in coordination of care (as documented) at patient's floor/unit and/or counseling patient: Coding Level of Care Code 56818 INT INP/OBS CARE Diagnoses Pneumonia J18.9 Acute dyspnea R06.00 Chronic lymphocytic leukemia C91.10
--- NOTE | 2023-08-14 13:43 | Electrocardiogram Report ---
Test Reason : Blood Pressure : / mmHG Vent. Rate : 089 BPM Atrial Rate : 089 BPM P-R Int : 158 ms QRS Dur : 076 ms QT Int : 342 ms P-R-T Axes : 055 -22 033 degrees QTc Int : 416 ms Poor data quality, interpretation may be adversely affected Normal sinus rhythm Normal ECG When compared with ECG of 11-AUG-2023 15:30, Criteria for Anteroseptal infarct are no longer Present Confirmed by Hitesh Blevins ([id number]) on 08/14/2023 1:43:43 PM Referred By: REFERRED SELF Confirmed By:Hitesh Blevins
[2023-08-14] MEDS: OPTIRAY 320 500ml IV ONE (13:50)
--- NOTE | 2023-08-14 14:04 | CT Scan Report ---
CT SCAN OF THE CHEST WITH IV CONTRAST CLINICAL HISTORY: Pneumonia. COMPARISON STUDY: Chest x-ray dated 08/11/2023. Chest CT dated 02/09/2021. TECHNIQUE: Following the IV administration of 88 cc of Optiray 320, CT scan of the thorax was perform ed from the thoracic inlet to the upper abdomen. Images are reviewed in the axial, sagittal, and azalia nal planes. IV contrast was administered without complication. A dose lowering technique was utilize d adhering to the principles of ALARA. The examination is significantly degraded by motion artifact. CT DOSE: 264.63 mGy.cm FINDINGS: Thyroid: Imaged portions of the thyroid gland are normal in size and attenuation. Thoracic aorta: There is other sclerotic calcification of the thoracic aorta, which is normal in abby roselyn and demonstrates standard 3-vessel arch anatomy. No dissection is seen. Pulmonary vasculature: The pulmonary trunk is normal in caliber. There are no filling defects identif ied in the central pulmonary vessels to indicate pulmonary embolus. Note that this examination was no t protocoled for evaluation of the pulmonary arteries. Heart: The heart is enlarged noting a small pericardial effusion. The coronary arteries are densely c alcified. Lungs and pleural spaces: Evaluation of the lung parenchyma is degraded by motion artifact. Multifoca l airspace consolidation is seen in the right upper and right lower lobes. There are small pleural ef fusions, right larger than left with dependent atelectasis. Secretions are noted in the trachea. Ther e are scattered calcified granulomas. Mediastinum: There is a mildly enlarged subcarinal node which measures up to 14 mm in short axis. Dunia: There are enlarged right hilar lymph nodes which measure up to 14 mm in short axis. No left hil ar adenopathy is seen. Axillae: There is no axillary lymphadenopathy. Upper abdomen: The spleen is enlarged. Scattered subcentimeter hepatic hypodensities likely represent cysts but are too small for definitive characterization. Partially visualized upper abdominal viscer a is otherwise grossly unremarkable. Skeletal structures: The skeletal structures are osteopenic. Degenerative change and hyperkyphosis is noted in the thoracic spine. There are chronic compression deformities of T2, T3, T4, T10, T11, and L1. No lytic or blastic bony lesions are seen. A right shoulder arthroplasty is in place. Advanced ar thritic change is seen in the left shoulder. There is chronic posttraumatic deformity of the sternum. There are chronic/healed bilateral rib fractures. IMPRESSION: 1. Significantly motion degraded examination. 2. Multifocal airspace consolidation throughout the right lung is typical for pneumonia/aspiration pn eumonitis. Clinical correlation will be required and radiographic follow-up to resolution is recommen ded. 3. Small pleural effusions, right larger than left. 4. Cardiomegaly. 5. Splenomegaly. 6. Mildly enlarged right hilar and subcarinal lymph nodes are nonspecific and likely reactive. 7. Additional findings as above. ACT 112: Negative or not required by law. Electronically signed by: Jaime Horvath M.D. 08/14/2023 2:01 PM
--- NOTE | 2023-08-14 16:43 | Hospitalist Progress Note ---
Date of Service August 14, 2023 Assessment & Plan (1) Pneumonia: Plan 87-year-old female with PMH of CLL, HTN, anxiety, depression, osteoarthritis, gout, GERD presented to the ER with complaint of cough & shortness of breath. 08/05/2023 +COVID-19 with unremarkable CXR. Symptoms progressed with worsening cough and SOB and continued fevers. She is being managed for the following: Recent infection with COVID-19 virus Likely superimposed bacterial pneumonia Pneumonia in an immunocompromised patient Presented with increasing shortness of breath and cough, recent history of infection with COVID-19 virus. In ER T: 37C, P: 110, 135/72, R: 25, 93% on RA. WBC: 159 (was 129 on 07/15/23). Lactate: 1.1, procalcitonin: 20. MRSA positive. CXR: Right upper lobe pneumonia. Mild right hilar prominence may represent underlying lymphadenopathy. Mild retrocardiac densities may represent atelectasis versus pneumonitis. In ER given 2L NSS, cefepime, vancomycin CT chest 08/14, reviewed. Patient is still with significant cough and sputum production, patient appears bothered with cough. Continue DuoNebs scheduled, Tessalon Perle, hypertonic saline nebs twice daily. c/w budesonide twice daily. c/w cough suppressant. Antibiotic was broadened to Zosyn and vancomycin given immunocompromised status and possible aspiration. Continue doxycycline 2/6, Zosyn 2/6, drop vancomycin 2/5 as doxy will cover for mrsa Pulmonology consult, appreciate recommendation. Follow admitting sputum and blood culture. WBC high 2/2 underlying malignancy. Continue home prednisone 5 mg daily. Continue with incentive spirometry and flutter valve. Monitor clinically. Infection due to COVID-19: COVID-19 infection noted initially on 05 August of this year. COVID remains positive on fifth of this month May be complicating current pneumonia Remains on room air with normal saturation Elevated troponin: Likely demand ischemia from hypoxemia secondary to acute illness. Troponin elevated at 457, down trended. Patient with no chest pain. EKG with sinus tachycardia. Echo with EF of 60 to 65%, LV wall motion normal, grade 1 medical dysfunction. Continue telemetry. Chronic lymphocytic leukemia: Has chronic lymphocytic leukemia WBC: 159 (was 129 on 07/15/23), Hgb: 11, Plt: 59 (at baseline) Receives IVIG monthly. Last was 07/16/[address] Vasquez Other chronic medical conditions: Continue with/resume home meds as and when able Chronic anemia/chronic thrombocytopenia/hypogammaglobulinemia - Stable. Anxiety and depression: Continue home citalopram. Lorazepam on hold currently. Osteoarthritis: Continue home prednisone. DVT prophylaxis: SCDs, re- thrombocytopenia Conditional Code - would like trial of CPR/chest compression and defibrillation. Does not want advanced airway or intubation Follows with Dr Estrada for routine care Admission and Anticipated Discharge Date Admission Date: August 11, 2023 Subjective Patient was seen and examined at bedside. Patient was sitting up in bed, on room air, not in any acute distress. Patient reports cough getting better and feels slightly better. Reports eating okay and moving bowels okay, denies other review of symptoms. Has been afebrile. Physical Exam Physical Exam: GENERAL: Alert and oriented x3. NAD, on RA. Ill/frail/weak appearing. HEENT: No pallor, no icterus. Pupils equal, round and reactive to light. Oral mucosa moist. NECK: No JVD, no neck masses. HEART: S1 and S2 heard. Regular rate and rhythm. + murmur, no gallop. RESPIRATORY SYSTEM: Normal AP diameter. No accessory muscle use. No wheezing, Bl crackles and increased breathsounds. crackles improving ABDOMEN: Soft, bowel sounds present, nontender, no distention. CENTRAL NERVOUS SYSTEM: No facial droop. Speech is clear. Obeys simple commands. Moves extremities. EXTREMITIES: No edema, no erythema seen. BLE chr skin changes and discoloration noted. Results & Data Results & Data Vital Signs (Past 12 Hours) Vital Signs Temp Pulse Pulse Pulse Resp BP Pulse Ox 08/14/23 16:09 96 H 08/14/23 15:39 36.7 C 95 H 17 134/63 100 08/14/23 15:07 95 H 20 96 08/14/23 12:16 97 H 18 95 08/14/23 11:39 36.6 C 98 H 18 141/58 H 92 08/14/23 10:08 08/14/23 07:41 96 H 18 95 08/14/23 07:25 78 O2 Del Method 08/14/23 16:09 08/14/23 15:39 Room Air 08/14/23 15:07 Room Air 08/14/23 12:16 Nasal Cannula 08/14/23 11:39 Room Air 08/14/23 10:08 Room Air 08/14/23 07:41 Room Air 08/14/23 07:25
[2023-08-14] MEDS: MAGNESIUM SULFATE / D5W 1 GM/100 ML BAG IV ONE (21:12)
[2023-08-14] MEDS: ALBUMIN 25% 12.5 GM/50 ML VIAL IV ONE (21:12)
[2023-08-15 07:20] LABS: Hematocrit (blood only) 26.7 % (37.0-47.0); Hemoglobin 8.1 g/dl (12.0-16.0); Mean Corpuscular Hemoglobin 32.9 pg (25.0-34.0); Mean Corpuscular Hgb Conc 30.3 g/dL (32.0-36.0); Mean Corpuscular Volume 108.5 fL (80.0-100.0); RDW Coefficient of Variation 14.5 % (11.5-14.5); RDW Standard Deviation 56.6 fL (36.4-46.3); Red Blood Count 2.46 M/uL (4.20-5.40); White Blood Count 82.34 K/ul (4.8-10.8)
[2023-08-15 07:27] LABS: BUN Creatinine Ratio 21.4 (10-20); Calcium 8.2 mg/dl (8.6-10.3); Creatinine Clr Calc Pharmacy 42.7 ml/min; Est GFR (African American) 91.6 ml/min; Magnesium 2.1 mg/dl (1.7-2.4); Potassium 3.8 mmol/L (3.5-5.1)
[2023-08-15] MEDS: IPRATROPIUM BROMIDE NEB SOLN 0.02% 0.5MG/2.5ML VIAL INH SCH (07:39)
[2023-08-15] MEDS: LEVALBUTEROL 1.25 MG/3 ML NEB NEB SCH (07:39)
[2023-08-15 08:13] LABS: Mean Platelet Volume 9.4 fL (9.4-12.4); Platelet Count 28 K/uL (130-400); Platelet Estimate Signific. Decreased (Normal)
[2023-08-15] MEDS ORDERED: XOPENEX/ATROVENT 1.25mg/0.5MG NEB COMBO NEB SCH (09:00)
[2023-08-15 13:31] LABS: Hematocrit (blood only) 32.8 % (37.0-47.0); Hemoglobin 10.1 g/dl (12.0-16.0)
--- NOTE | 2023-08-15 15:12 | Hospitalist Progress Note ---
Date of Service August 15, 2023 Assessment & Plan (1) Pneumonia: Plan 87-year-old female with PMH of CLL, HTN, anxiety, depression, osteoarthritis, gout, GERD presented to the ER with complaint of cough & shortness of breath. 08/05/2023 +COVID-19 with unremarkable CXR. Symptoms progressed with worsening cough and SOB and continued fevers. She is being managed for the following: Recent infection with COVID-19 virus Likely superimposed bacterial pneumonia Pneumonia in an immunocompromised patient Presented with increasing shortness of breath and cough, recent history of infection with COVID-19 virus. In ER T: 37C, P: 110, 135/72, R: 25, 93% on RA. WBC: 159 (was 129 on 07/15/23). Lactate: 1.1, procalcitonin: 20. MRSA positive. CXR: Right upper lobe pneumonia. Mild right hilar prominence may represent underlying lymphadenopathy. Mild retrocardiac densities may represent atelectasis versus pneumonitis. In ER given 2L NSS, cefepime, vancomycin CT chest 08/14, reviewed. Patient w/ improving cough and sputum production, Nocturnal pulse ox 08/14 reviewed. Continue DuoNebs scheduled, Tessalon Perle, hypertonic saline nebs twice daily. c/w budesonide twice daily. c/w cough suppressant. Antibiotic was broadened to Zosyn and vancomycin given immunocompromised status and possible aspiration. Continue doxycycline 2/6, Zosyn 2/6, drop vancomycin 2/5 as doxy will cover for mrsa Pulmonology consult, appreciate recommendation. Follow admitting sputum and blood culture. No growth so far. WBC high 2/2 underlying malignancy. Continue home prednisone 5 mg daily. Continue with incentive spirometry and flutter valve. Monitor clinically. Infection due to COVID-19: COVID-19 infection noted initially on 05 August of this year. COVID remains positive on fifth of this month May be complicating current pneumonia Remains on room air with normal saturation Elevated troponin: Likely demand ischemia from hypoxemia secondary to acute illness. Troponin elevated at 457, down trended. Patient with no chest pain. EKG with sinus tachycardia. Echo with EF of 60 to 65%, LV wall motion normal, grade 1 medical dysfunction. Continue telemetry. Chronic lymphocytic leukemia: Has chronic lymphocytic leukemia WBC: 159 (was 129 on 07/15/23), Hgb: 11, Plt: 59 (at baseline) Receives IVIG monthly. Last was 07/16/[address] Vasquez Other chronic medical conditions: Continue with/resume home meds as and when able Chronic anemia/chronic thrombocytopenia/hypogammaglobulinemia - Stable. Anxiety and depression: Continue home citalopram. Lorazepam on hold currently. Osteoarthritis: Continue home prednisone. DVT prophylaxis: SCDs, re- thrombocytopenia Conditional Code - would like trial of CPR/chest compression and defibrillation. Does not want advanced airway or intubation Follows with Dr Estrada for routine care Admission and Anticipated Discharge Date Admission Date: August 11, 2023 Subjective Patient was seen and examined at bedside. Patient was sitting up in bed, on room air, not in any acute distress. Patient reports cough getting better and feels better. Reports eating okay and moving bowels okay, denies other review of symptoms. Has been afebrile. Pt and her caregiver made aware of the nocturnal pulse ox test. Physical Exam Physical Exam: GENERAL: Alert and oriented x3. NAD, on RA. Ill/frail/weak appearing. HEENT: No pallor, no icterus. Pupils equal, round and reactive to light. Oral mucosa moist. NECK: No JVD, no neck masses. HEART: S1 and S2 heard. Regular rate and rhythm. + murmur, no gallop. RESPIRATORY SYSTEM: Normal AP diameter. No accessory muscle use. No wheezing, Rt - increased breath sounds, cr R> L. ABDOMEN: Soft, bowel sounds present, nontender, no distention. CENTRAL NERVOUS SYSTEM: No facial droop. Speech is clear. Obeys simple commands. Moves extremities. EXTREMITIES: No edema, no erythema seen. BLE chr skin changes and discoloration noted. Results & Data Results & Data Vital Signs (Past 12 Hours) Vital Signs Temp Pulse Pulse Pulse Resp BP Pulse Ox 08/15/23 11:19 103 H 22 94 08/15/23 07:42 85 20 99 08/15/23 07:36 77 08/15/23 04:03 36.3 C L 106 H 20 145/78 H 94 O2 Del Method 08/15/23 11:19 Room Air 08/15/23 07:42 Room Air 08/15/23 07:36 08/15/23 04:03 Room Air
[2023-08-16] MEDS: DOXYCYCLINE HYCLATE 100 MG in DEXTROSE 5% MINI-B 100 ML IV SCH (04:13)
[2023-08-16 06:44] LABS: Hematocrit (blood only) 29.3 % (37.0-47.0); Mean Corpuscular Hemoglobin 33.7 pg (25.0-34.0); Mean Corpuscular Hgb Conc 30.7 g/dL (32.0-36.0); Mean Corpuscular Volume 109.7 fL (80.0-100.0); Mean Platelet Volume 10.1 fL (9.4-12.4); Platelet Count 30 K/uL (130-400); RDW Coefficient of Variation 14.6 % (11.5-14.5); RDW Standard Deviation 56.7 fL (36.4-46.3); Red Blood Count 2.67 M/uL (4.20-5.40); White Blood Count 98.47 K/ul (4.8-10.8)
[2023-08-16 07:29] LABS: BUN Creatinine Ratio 24.3 (10-20); Calcium 8.5 mg/dl (8.6-10.3); Est GFR (African American) 91.6 ml/min; Potassium 3.7 mmol/L (3.5-5.1)
[2023-08-16] MEDS: LORATADINE 10 MG TAB PO PRN (08:11)
[2023-08-16] MEDS: ACETAMINOPHEN 325 MG TAB PO PRN (13:21)
[2023-08-16] MEDS: BENZONATATE 100 MG CAPSULE PO PRN (13:21)
--- NOTE | 2023-08-16 13:48 | Pulmonology Progress Note ---
Date of Service August 16, 2023 Assessment & Plan (1) Pneumonia: Plan: CT chest reviewed with findings consistent with right-sided pneumonia. No mass identified. No significant pleural effusion identified either. Recommend transitioning to oral antibiotics to cover MRSA and gram-negative organisms. Can transition from vancomycin, Zosyn and doxycycline to Augmentin and linezolid for total 14 days of antibiotics. (2) Acute dyspnea: Plan: Pulse oximetry did not reveal any significant nocturnal oxygen needs. She is simply using supplemental oxygen for the placebo effect at this point. I do not think there is a medical necessity for supplemental oxygen unless she shows sustained desaturations below 88% on room air. (3) Chronic lymphocytic leukemia: Plan: Patient with significant leukocytosis likely secondary to leukemoid reaction in the setting of CLL. Plan Thank you for the consult. No further input at this time. I will sign off. Please call with questions Admission and Anticipated Discharge Date Admission Date: August 11, 2023 Subjective Patient seen and examined. Shortness of breath is improved. She notes that overnight she had a bout of coughing and her heart rate became elevated. Patient was placed on oxygen at night. She settled out and her symptoms improved. Review of Systems Review of Systems: All systems reviewed & are unremarkable except as noted in HPI & below Physical Exam Physical Exam: Constitutional: Patient appears to be of their stated age. Thin and frail appearing. Eyes: Pupils are equal round and reactive to light. Conjunctivae are normal. Anicteric sclera. Ears nose, mouth and throat: Mallampati class 2. Normal posterior oropharynx. Uvula is midline. Neck: Trachea is midline. Visual inspection is normal. Respiratory: No acute tachypnea or increased work of breathing. Mild crackles in the right upper lobe Cardiovascular: Regular rate and rhythm. No murmurs. No edema. Gastrointestinal: Normal bowel sounds, soft, nontender and nondistended. No hepatosplenomegaly noted. Musculoskeletal: No cyanosis. Patient is able to move all extremities. Strength is 5 out of 5 in the upper and lower extremities. Skin: No rashes, warm dry and intact. Diffuse purpura. Neurologic: No obvious focal neurological deficits seen. Psychiatric: Alert and oriented x3 with a euthymic affect. Results & Data Results & Data Vital Signs (Past 12 Hours) Vital Signs Temp Pulse Resp BP Pulse Ox O2 Del Method O2 Flow Rate 08/16/23 12:11 36.4 C L 106 H 18 126/70 100 Nasal Cannula 3 08/16/23 11:09 95 H 20 97 Nasal Cannula 3 08/16/23 07:38 36.8 C 85 18 165/76 H 100 Nebulizer 8 08/16/23 07:04 85 18 100 Nasal Cannula 3 08/16/23 05:00 94 Nasal Cannula 2 08/16/23 03:39 36.6 C 126 H 18 114/60 95 Room Air PG Care Time/CCT Total # of Minutes Spent Total Time Spent with Patient: Total time spent is greater than 50% in coordination of care (as documented) at patient's floor/unit and/or counseling patient: Coding Level of Care Code 25704 SUB INP/OBS CARE 235MIN Diagnoses Pneumonia J18.9 Acute dyspnea R06.00 Chronic lymphocytic leukemia C91.10
--- NOTE | 2023-08-16 16:32 | Hospitalist Progress Note ---
Date of Service August 16, 2023 Assessment & Plan (1) Pneumonia: Plan 87-year-old female with PMH of CLL, HTN, anxiety, depression, osteoarthritis, gout, GERD presented to the ER with complaint of cough & shortness of breath. 08/05/2023 +COVID-19 with unremarkable CXR. Symptoms progressed with worsening cough and SOB and continued fevers. She is being managed for the following: Recent infection with COVID-19 virus Likely superimposed bacterial pneumonia Pneumonia in an immunocompromised patient Presented with increasing shortness of breath and cough, recent history of infection with COVID-19 virus. In ER T: 37C, P: 110, 135/72, R: 25, 93% on RA. WBC: 159 (was 129 on 07/15/23). Lactate: 1.1, procalcitonin: 20. MRSA positive. CXR: Right upper lobe pneumonia. Mild right hilar prominence may represent underlying lymphadenopathy. Mild retrocardiac densities may represent atelectasis versus pneumonitis. In ER given 2L NSS, cefepime, vancomycin CT chest 08/14, reviewed. Patient w/ improving cough and sputum production, Nocturnal pulse ox 08/14 reviewed. Continue with DuoNebs as needed, Tessalon Perle. Patient reports improving secretion, no clear white. Will discontinue hypertonic saline. c/w budesonide twice daily. c/w cough suppressant. Still with bouts of cough. Will transition Zosyn 2/6 and Doxy 2/6 to Augmentin and linezolid per pulm recommendation. Total therapy would be 14 days. Pulmonology evaluated, appreciate recommendation. Follow admitting sputum and blood culture. No growth so far. WBC high 2/2 underlying malignancy. Continue home prednisone 5 mg daily. Continue with incentive spirometry and flutter valve. Monitor clinically. Wean down oxygen as tolerated. Infection due to COVID-19: COVID-19 infection noted initially on 05 August of this year. COVID remains positive on fifth of this month May be complicating current pneumonia Elevated troponin: Likely demand ischemia from hypoxemia secondary to acute illness. Troponin elevated at 457, down trended. Patient with no chest pain. EKG with sinus tachycardia. Echo with EF of 60 to 65%, LV wall motion normal, grade 1 medical dysfunction. Continue telemetry. Chronic lymphocytic leukemia: Has chronic lymphocytic leukemia WBC: 159 (was 129 on 07/15/23), Hgb: 11, Plt: 59 (at baseline) Receives IVIG monthly. Last was 07/16/[address] Vasquez Other chronic medical conditions: Continue with/resume home meds as and when able Chronic anemia/chronic thrombocytopenia/hypogammaglobulinemia - Stable. Anxiety and depression: Continue home citalopram. Lorazepam on hold currently. Osteoarthritis: Continue home prednisone. DVT prophylaxis: SCDs, re- thrombocytopenia PT/OT recommending rehab., CM to assist with DC planning. Conditional Code - would like trial of CPR/chest compression and defibrillation. Does not want advanced airway or intubation Follows with Dr Estrada for routine care Admission and Anticipated Discharge Date Admission Date: August 11, 2023 Subjective Patient was seen and examined at bedside. Patient was sitting up in bed, on room air, not in any acute distress. Patient reports cough getting better and feels better. She reports she has bouts of cough last evening with elevated her heart rate, and was put on oxygen. Reports eating okay and moving bowels okay, denies other review of symptoms. Has been afebrile. Physical Exam Physical Exam: GENERAL: Alert and oriented x3. NAD, on RA. Ill/frail/weak appearing. HEENT: No pallor, no icterus. Pupils equal, round and reactive to light. Oral mucosa moist. NECK: No JVD, no neck masses. HEART: S1 and S2 heard. Regular rate and rhythm. + murmur, no gallop. RESPIRATORY SYSTEM: Normal AP diameter. No accessory muscle use. No wheezing, right lung crackles improving. ABDOMEN: Soft, bowel sounds present, nontender, no distention. CENTRAL NERVOUS SYSTEM: No facial droop. Speech is clear. Obeys simple commands. Moves extremities. EXTREMITIES: No edema, no erythema seen. BLE chr skin changes and discoloration noted. Results & Data Results & Data Vital Signs (Past 12 Hours) Vital Signs Temp Pulse Pulse Resp BP Pulse Ox O2 Del Method 08/16/23 14:52 22 98 Nasal Cannula 08/16/23 12:11 36.4 C L 106 H 18 126/70 100 Nasal Cannula 08/16/23 11:09 95 H 20 97 Nasal Cannula 08/16/23 10:00 Nasal Cannula 08/16/23 08:00 83 08/16/23 07:38 36.8 C 85 18 165/76 H 100 Nebulizer 08/16/23 07:04 85 18 100 Nasal Cannula 08/16/23 05:00 94 Nasal Cannula O2 Flow Rate 08/16/23 14:52 3 08/16/23 12:11 3 08/16/23 11:09 3 08/16/23 10:00 2 08/16/23 08:00 08/16/23 07:38 8 08/16/23 07:04 3 08/16/23 05:00 2
[2023-08-16] MEDS: AMOXICILLIN/CLAVULANATE 875 MG TAB PO SCH (17:36)
--- NOTE | 2023-08-16 21:13 | Communication Note ---
Date of Service: August 16, 2023 Patient verbalized to RN swallowing issues started during confinement. Concern for aspiration. No facial droop or arm or leg weakness as per RN. N.p.o. for now Aspiration precautions BRENDA drake
[2023-08-16 21:39] LABS: Magnesium 1.8 mg/dl (1.7-2.4)
[2023-08-16] MEDS: LINEZOLID 600 MG TAB PO SCH (22:30)
[2023-08-16] MEDS: POTASSIUM CHLORIDE / WTR 10 MEQ/100 ML PLCT IV SCH (22:42)
[2023-08-16] MEDS: ALBUMIN 25% 25 GM/100 ML VIAL IV ONE (22:42)
[2023-08-17 07:23] LABS: Hematocrit (blood only) 27.2 % (37.0-47.0); Hemoglobin 8.1 g/dl (12.0-16.0); Mean Corpuscular Hemoglobin 32.7 pg (25.0-34.0); Mean Corpuscular Hgb Conc 29.8 g/dL (32.0-36.0); Mean Corpuscular Volume 109.7 fL (80.0-100.0); Mean Platelet Volume 10.6 fL (9.4-12.4); Platelet Count 34 K/uL (130-400); RDW Coefficient of Variation 14.3 % (11.5-14.5); RDW Standard Deviation 55.7 fL (36.4-46.3); Red Blood Count 2.48 M/uL (4.20-5.40); White Blood Count 110.81 K/ul (4.8-10.8)
[2023-08-17 07:53] LABS: Calcium 8.8 mg/dl (8.6-10.3); Potassium 4.9 mmol/L (3.5-5.1)
[2023-08-17 07:56] LABS: Creatinine Clr Calc Pharmacy 50.7 ml/min; Est GFR (African American) 97.4 ml/min
--- NOTE | 2023-08-17 08:21 | XRay Report ---
XR chest 1V portable CLINICAL HISTORY: f/u sob, pneumonia COMPARISON STUDY: Chest radiograph August 11, 2023. Chest CT August 14, 2023. FINDINGS: Right shoulder arthroplasty bilateral breast calcifications are incidentally noted. There i s no pneumothorax. Multifocal airspace opacities are again noted. Right upper lobe airspace opacity h as slightly improved. There are small bilateral pleural effusions. There is cardiomegaly with pulmona ry vascular congestion. IMPRESSION: 1. Multifocal airspace opacities suggestive of multifocal pneumonia. Slight improvement in right uppe r lobe pneumonia. 2. Small bilateral pleural effusions. 3. Cardiomegaly with pulmonary vascular congestion. ACT 112: Negative or not required by law. Electronically signed by: Landen Zarco M.D. 08/17/2023 8:20 AM
[2023-08-17] MEDS: MAGNESIUM SULFATE / D5W 1 GM/100 ML BAG IV ONE (09:42)
[2023-08-17] MEDS: ADVANCED PROBIOTIC 625 MG CAPSULE PO SCH (09:48)
[2023-08-17] MEDS: UNASYN 3000MG / NS q6h IV SCH (12:56)
[2023-08-17] MEDS: DOXYCYCLINE HYCLATE 100 MG in D5W MINI-B 100 ML (Q12H) IV SCH (13:27)
--- NOTE | 2023-08-17 16:06 | Hospitalist Progress Note ---
Date of Service August 17, 2023 Assessment & Plan (1) Pneumonia: Plan 87-year-old female with PMH of CLL, HTN, anxiety, depression, osteoarthritis, gout, GERD presented to the ER with complaint of cough & shortness of breath. 08/05/2023 +COVID-19 with unremarkable CXR. Symptoms progressed with worsening cough and SOB and continued fevers. She is being managed for the following: Recent infection with COVID-19 virus Likely superimposed bacterial pneumonia Pneumonia in an immunocompromised patient Presented with increasing shortness of breath and cough, recent history of infection with COVID-19 virus. In ER T: 37C, P: 110, 135/72, R: 25, 93% on RA. WBC: 159 (was 129 on 07/15/23). Lactate: 1.1, procalcitonin: 20. MRSA positive. CXR: Right upper lobe pneumonia. Mild right hilar prominence may represent underlying lymphadenopathy. Mild retrocardiac densities may represent atelectasis versus pneumonitis. In ER given 2L NSS, cefepime, vancomycin CT chest 08/14, reviewed. Patient w/ improving cough and sputum production, Nocturnal pulse ox 08/14 reviewed. Continue with DuoNebs as needed, Tessalon Perle. Patient reports improving secretion, now clear white. c/w budesonide twice daily. c/w cough suppressant. Still with bouts of cough a nd has intermittent hypoxia Repeat CXR 08/17 w/ some pul vascular congestion, given iv lasix 20 mg Transitioned Zosyn 2/6 and Doxy 2/6 to Augmentin 2/10 and linezolid 2/10 per pulm recommendation. Total therapy would be 14 days. But again changed back to unasyn and iv doxy given NPO status d/t swallowing issues under eval. Pulmonology evaluated, appreciate recommendation. Follow admitting sputum and blood culture. No growth so far. WBC high 2/2 underlying malignancy. Continue home prednisone 5 mg daily. Continue with incentive spirometry and flutter valve. Monitor clinically. Wean down oxygen as tolerated. Infection due to COVID-19: COVID-19 infection noted initially on 05 August of this year. COVID remains positive on fifth of this month May be complicating current pneumonia Elevated troponin: Likely demand ischemia from hypoxemia secondary to acute illness. Troponin elevated at 457, down trended. Patient with no chest pain. EKG with sinus tachycardia. Echo with EF of 60 to 65%, LV wall motion normal, grade 1 medical dysfunction. Continue telemetry. Chronic lymphocytic leukemia: Has chronic lymphocytic leukemia WBC: 159 (was 129 on 07/15/23), Hgb: 11, Plt: 59 (at baseline) Receives IVIG monthly. Last was 07/16/[address] Vasquez Other chronic medical conditions: Continue with/resume home meds as and when able Chronic anemia/chronic thrombocytopenia/hypogammaglobulinemia - Stable. Anxiety and depression: Home citalopram held due to linezolid use. c/w home Lorazepam. Osteoarthritis: Continue home prednisone. DVT prophylaxis: SCDs, re- thrombocytopenia PT/OT recommending rehab., CM to assist with DC planning. Conditional Code - would like trial of CPR/chest compression and defibrillation. Does not want advanced airway or intubation Follows with Dr Estrada for routine care Admission and Anticipated Discharge Date Admission Date: August 11, 2023 Subjective Patient was seen and examined at bedside. Patient was sitting up in bed, on room air, not in any acute distress. Patient reports cough getting better and making less sputum now. Patient had difficulty swallowing last evening and was put n.p.o., speech evaluated today, n.p.o. except for sips for now and further evaluation tomorrow. Her oral antibiotic linezolid and Augmentin were changed to Unasyn and IV doxycycline. Repeat chest x-ray with some pulmonary vascular congestion, will give a small dose of IV Lasix. Patient complaining of intermittent shortness of breath. Otherwise patient reports eating okay and moving bowels okay. Physical Exam Physical Exam: GENERAL: Alert and oriented x3. NAD, on RA. Ill/frail/weak appearing. HEENT: No pallor, no icterus. Pupils equal, round and reactive to light. Oral mucosa moist. NECK: No JVD, no neck masses. HEART: S1 and S2 heard. Regular rate and rhythm. + murmur, no gallop. RESPIRATORY SYSTEM: Normal AP diameter. No accessory muscle use. No wheezing, right lung crackles improving. ABDOMEN: Soft, bowel sounds present, nontender, no distention. CENTRAL NERVOUS SYSTEM: No facial droop. Speech is clear. Obeys simple commands. Moves extremities. EXTREMITIES: No edema, no erythema seen. BLE chr skin changes and discoloration noted. Results & Data Results & Data Vital Signs (Past 12 Hours) Vital Signs Temp Pulse Pulse Resp BP Pulse Ox O2 Del Method 08/17/23 15:57 36.8 C 113 H 20 147/75 H 100 Nasal Cannula 08/17/23 11:19 94 Nasal Cannula 08/17/23 11:19 36.2 C L 120 H 22 120/68 80 L Room Air 08/17/23 11:02 100 H 19 99 Nasal Cannula 08/17/23 08:00 83 08/17/23 08:00 Room Air 08/17/23 07:35 36.6 C 107 H 20 176/86 H 97 Nebulizer 08/17/23 07:29 104 H 19 90 Nasal Cannula O2 Flow Rate 08/17/23 15:57 2 08/17/23 11:19 2 08/17/23 11:19 08/17/23 11:02 3 08/17/23 08:00 08/17/23 08:00 08/17/23 07:35 8 08/17/23 07:29 1
[2023-08-17] MEDS: FUROSEMIDE INJ 20 MG/2 ML VIAL IV ONE (17:01)
[2023-08-17] MEDS: LORazepam 0.5 MG TAB PO SCH (20:12)
[2023-08-18 07:58] LABS: Hematocrit (blood only) 32.1 % (37.0-47.0); Hemoglobin 9.6 g/dl (12.0-16.0); Mean Corpuscular Hemoglobin 32.8 pg (25.0-34.0); Mean Corpuscular Hgb Conc 29.9 g/dL (32.0-36.0); Mean Corpuscular Volume 109.6 fL (80.0-100.0); Mean Platelet Volume 10.9 fL (9.4-12.4); Platelet Count 42 K/uL (130-400); RDW Coefficient of Variation 14.7 % (11.5-14.5); Red Blood Count 2.93 M/uL (4.20-5.40); White Blood Count 164.13 K/ul (4.8-10.8)
[2023-08-18 08:31] LABS: BUN Creatinine Ratio 33.3 (10-20); Calcium 9.2 mg/dl (8.6-10.3); Creatinine Clr Calc Pharmacy 44.6 ml/min; Est GFR (African American) 93.4 ml/min; Est GFR (Non-African American) 80.6 ml/min; Potassium 4.2 mmol/L (3.5-5.1)
--- NOTE | 2023-08-18 12:07 | Fluoroscopy Report ---
FL video swallow CLINICAL HISTORY: assess for aspiration TECHNIQUE: Video fluoroscopy of the pharyngeal region was performed as barium mixtures of varying con sistencies were administered to the patient by the speech pathologist. A formal esophagram was not pe rformed. Comparison: None available at the time of this dictation. FINDINGS: Total fluoroscopy time: 1.14 minutes. Radiation dose: 3.23 mGy. Aspiration is seen with thin and nectar consistency barium. There was no laryngeal vestibular penetra tion or dayami tracheal aspiration. Pooling of barium was noted in the bilateral piriform sinuses and valleculae. IMPRESSION: Aspiration is seen as above. Please see the speech pathology report for further details. ACT 112: Negative or not required by law. Electronically signed by: Sarabjit Wade M.D. 08/18/2023 12:05 PM
--- NOTE | 2023-08-18 14:17 | Gastrointestinal Consultation ---
Date of Consultation August 18, 2023 Assessment & Plan (1) Dysphagia: Abrupt onset dysphagia in the setting of CLL, w nasal turbinate involvement, distant tonsillar radiation and recent COVID. Plan 1. Recommend CT head to r/o stroke. 2. Recommend CT of the neck to r/o a CLL lesion/CLL related enlargement of tissue in the neck that could contribute to the dysphagia. 3. Recommend diagnostic EGD to verify no esophagitis (cirilo/radiation stricture), or structural abnormalities of the upper esophagus that may contribute. Will tentatively plan for tomorrow. May need a platelet transfusion. Platelets should be > 50 to undergo the procedure. 4. If above normal then consider placement of NG feeding tube to improve nutrition and allow from time to improve from COVID. 5. Meds to thin the post nasal drip ? guaifenesin. 6. Finally, endoscopic placement of a feeding tube was discussed. The pt laughed and stated, "that's the one thing I always told me kids that I didn't want." but she tells me now that she could consider if above testing negative and no improvement with coaching from speech therapy. Supervising Physician Co-Signing Physician Notes Agree with PE and plan as documented. History of Present Illness Reason for Consultation: Dysphagia Requesting Physician: Dr. Batres Attending Physician: Bety Batres MD History of Present Illness Ms. Abigail Adams is an 87 yr old female pt of Dr. Estrada w a hx of CLL (dx'ed 1983, rituxin 1999, radiation to L tonsilar area 2011, currently venetoclax and rituximab managed by Dr. Vasquez). Also hx of HTN, anxiety, depression, osteoarthritis, gout, GERD who had a cough and was dx'ed w COVID during an ED visit on 08/05. Then admitted on 08/11 due to worsening cough. 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 GI is consulted for the dysphagia. Her caregiver Maxine (who is also a friend and goes to tenriism w the pt) tells me that she was able to swallow Sat though admits that the pt has always had "a bit of a problem needing to be careful when she eats," but overall had her normal swallowing function on Sat then on Friday was not able to swallow. The pt is awake, alert and answers all questions as well. She is hard of hearing and uses software to read what is said during conversations. She answers all questions appropriately. She tells me that she is willing to undergo any testing and procedures, "to fix this." Her son Thierry who arrived while I was in the room stated to his mother, "we're going to fix this mom, " to which she responded w a smile. I briefly talked about palliative care to the pt/family, stating that sometimes at this age, a virus causes the nerves to not work well and sometimes a person of this age is not able to regain swallowing function. The pt, caregiver, son do not have any interest in palliative care/end of life options at this point. Allergies Allergy/AdvReac Type Severity Reaction Status Date / Time nitrofurantoin Allergy Unknown UNKNOWN Verified 08/05/23 22:15 PER [facility] oxaprozin Allergy Unknown UNKNOWN Verified 08/05/23 22:15 PER [facility] oxybutynin Allergy Unknown UNKNOWN Verified 08/05/23 22:15 PER [facility] ciprofloxacin [From Cipro] AdvReac Intermediate Confusion Verified 08/05/23 22:15 melatonin AdvReac Intermediate OPPOSITE Verified 08/05/23 22:15 AFFECT mirabegron AdvReac Intermediate Hypertensio Verified 08/05/23 22:15 n Home Medications Medication Instructions Recorded Confirmed Type calcium citrate 250 mg 2 tab PO QAM 05/18/18 08/11/23 History calcium-vitamin D3 5 mcg (200 unit) tablet citalopram 10 mg tablet 10 mg PO QAM 05/18/18 08/11/23 History diclofenac sodium 1 % topical gel 2 g topical QID PRN Pain 02/20/21 08/11/23 History cyanocobalamin (vitamin B-12) 1,000 mcg IM MONTHLY 01/14/22 08/11/23 History 1,000 mcg/mL injection solution ammonium lactate 12 % topical cream 1 applic topical DIRECTED PRN 08/16/22 08/11/23 History dry skin,arms and legs prednisone 5 mg tablet 5 mg PO DAILY 01/18/23 08/11/23 History polyethylene glycol 3350 17 gram 17 g PO DAILY PRN constipation #30 01/19/23 08/11/23 Rx oral powder packet (Miralax) ea sennosides 8.6 mg-docusate sodium 1 tab PO QAM #30 tabs 01/19/23 08/11/23 Rx 50 mg tablet (Senokot-S) fluticasone propionate 50 2 spray intranasal DAILY 08/05/23 08/11/23 History mcg/actuation nasal spray,suspension loratadine 10 mg tablet (Claritin) 10 mg PO DAILY PRN Congestion 08/05/2311/27 History lorazepam 0.5 mg tablet 0.5 mg PO HS 08/05/23 08/11/23 History multivitamin with minerals 1 tab PO DAILY 08/05/23 08/11/23 History sodium chloride 0.65 % nasal spray 1 spray intranasal DIRECTED PRN 08/05/23 08/11/23 History aerosol (Saline Nasal) Congestion benzonatate 100 mg capsule 100 mg PO TID PRN cough #30 caps 08/06/23 08/11/23 Rx Patient History Medical History (Updated 08/18/23 @ 15:20 by LOVE Moreira) Anxiety and depression Symptomatic anemia Anemia REZA (generalized anxiety disorder) Fracture of spine Closed tibia fracture Closed rib fracture Stress reaction GERD (gastroesophageal reflux disease) Diverticulosis of colon Osteoporosis Osteoarthritis Hypogammaglobulinemia, acquired History of squamous cell carcinoma Dyslipidemia Chronic lymphocytic leukemia Surgical History History of orthopedic surgery Status post hysterectomy Family History Other Cancer Diabetes Heart disease Social History Smoking Status: Never smoker Second Hand Exposure: No; Do You Dip or Chew Tobacco: No; Hx Alcohol Use: Yes Alcohol type: beer Hx Substance Use: No Preferred Language: Kittitian Communication Ability: Effective Communication Ability Comment: uses i-pad [employer] Required: No Beliefs That Will Affect Care: None marital status: / Current Living Situation: Alone Current Living Situation Comment: personal care givers Other Information That Helps Us Care for You: No Feels Safe at Home: Yes Safety Concerns: Feels Safe At This Time Assistive Devices: Cane, Stair Lift and Walker Review of Systems Constitutional: + weakness (general) Eyes: no problem reported Ear, Nose, Mouth, Throat: some nasal obstruction related to CLL nasal mass Respiratory: + cough Cardiovascular: Additional Comments: CP w cough but otherwise no CP, denies any irregular heart beats/fast beats. Gastrointestinal: + dysphagia since yesterday Integumentary: chronic ecchymosis. Neurologic: + generalized weakness; no confusion and no memory loss Psychiatric: no irritability, no anxiety and no confusion Physical Exam Constitutional: Frail, thin but very alert, oriented woman who is pleasant, talkative. Eyes: PERRL, conjunctivae normal, anicteric sclerae ENMT: Slight nasal sound to voice. Voice sl weak/quiet. Mouth w residual of barium on the roof of her mouth, soft palate. Uvula rises midline. No pharyngeal plaques. She has thick cloudy post nasal drip Neck: trachea midline, no thyromegaly Respiratory: normal respiratory effort, lungs clear to auscultation few coarse crackles, otherwise normal. Cardiovascular: RRR, no murmurs Gastrointestinal (Abdomen): normal bowel sounds, soft, nontender, no hepatosplenomegaly Musculoskeletal: no cyanosis or clubbing, extremities motor strength 5/5 Skin: + ecchymosis; thin/dry skin - darkened o n all extremities Neurologic: PERRL, EOMI, accommodation nl, no face palsy, no dysarthria Psychiatric: A+Ox3, euthymic affect Lymphatic: no edema Results & Data Vital Signs (Past 12 Hours) Vital Signs Temp Pulse Pulse Resp BP Pulse Ox O2 Del Method 08/18/23 11:18 36.4 C L 70 16 143/85 H 96 Nasal Cannula 08/18/23 08:00 88 08/18/23 08:00 Nasal Cannula 08/18/23 07:39 36.8 C 102 H 20 159/81 H 96 Nebulizer 08/18/23 07:36 102 H 12 96 Nasal Cannula 08/18/23 05:53 36.9 C 102 H 18 155/87 H 96 Nasal Cannula O2 Flow Rate 08/18/23 11:18 2 08/18/23 08:00 08/18/23 08:00 2 08/18/23 07:39 08/18/23 07:36 2 08/18/23 05:53 2 Laboratory Results WBC 164, Hb 9.6, Hct 32, plts 42, Na 139, K 4.2, CL 104, CO2 27, BUN 22. Cr 0.6, glucose 86. Diagnostic Findings Video Swallow: Aspiration is seen with thin and nectar consistency barium. There was no laryngeal vestibular penetration or dayami tracheal aspiration. Pooling of barium was noted in the bilateral piriform sinuses and valleculae.
[2023-08-18] MEDS: OPTIRAY 320 125ml IV ONE (15:57)
--- NOTE | 2023-08-18 16:22 | CT Scan Report ---
CT angio neck with con CLINICAL HISTORY: ro stroke, mass, swallow difficulty TECHNIQUE: CT angiography of the neck was performed following intravenous administration of iodinated contrast. Coronal and sagittal MIPS were obtained from the axial data set and were submitted for rev iew. Automated dose lowering techniques and/or adjustment according to patient size were utilized fo r this examination. All measurements were calculated based on NASCET criteria. CT DOSE: 1002.5 mGy.cm Comparison: None available at the time of this dictation. FINDINGS: Emphysema and airspace opacities are partially seen in the lungs. CTA Neck: A 3 vessel aortic arch is shown. There is no significant atherosclerotic plaque in the aor tic arch or the origins of the innominate, left common carotid, and left subclavian arteries. The co mmon carotid, external carotid, cervical segments of the internal carotid arteries, and the cervical segments of the vertebral arteries are patent without hemodynamically significant stenosis. The left vertebral artery is dominant. IMPRESSION: 1. No occlusion, hemodynamically significant stenosis, or dissection in the major cervical arteries. 2. Partial visualization of airspace opacities as above in this patient with history of pneumonia. Assessment of stenosis of the internal carotid arteries is based on NASCET criteria. ACT 112: Negative or not required by law. Electronically signed by: Sarabjit Wade M.D. 08/18/2023 4:20 PM
--- NOTE | 2023-08-18 16:40 | CT Scan Report ---
CT ANGIOGRAM OF THE BRAIN COMBO CLINICAL HISTORY: Strokelike symptoms. Difficulty swallowing. COMPARISON STUDY: CT of the brain dated 01/05/2023. TECHNIQUE: Unenhanced axial CT scan of the brain is performed. Subsequently, following the IV adminis tration of 115 cc of Optiray 320, CT angiogram of the brain was performed from the skull base to the vertex. Images are reviewed in the axial, sagittal, and coronal planes. 3-D MIPS images are created a nd assessed. IV contrast was administered without complication. A dose lowering technique was utiliz ed adhering to the principles of ALARA. FINDINGS: Brain parenchyma: There is age-related involutional change noting mild subcortical and periventricula r microangiopathic disease. There is no hemorrhage, mass effect, or evidence of acute territorial isc hemia by CT criteria. There is no evidence of enhancing mass lesion on the angiogram phase images. No extra-axial fluid collection is seen. Mtz-white matter differentiation is preserved. Ventricles, sulci, and cisterns: Prominent secondary to involutional change. CT angiogram of the brain: There is atherosclerotic calcification of the cavernous carotid and verteb ral arteries. The internal carotid arteries are widely patent, as are the anterior and middle cerebra l arteries. The vertebrobasilar system and posterior cerebral arteries are widely patent. The left ve rtebral artery is dominant. There is a right posterior communicating artery. There is no aneurysm, hi gh-grade stenosis, or focal vessel cutoff identified throughout the intracranial circulation. Dural sinuses: Clear as visualized. Orbits: The bony orbits are intact. The orbital contents are normal as visualized noting bilateral oc ular lens implants. Sinuses and mastoids: There is an air-fluid level in the left maxillary antrum. Moderate mucosal thic kening is noted in the ethmoid sinuses. There is trace mucosal thickening in the left frontal sinus a nd the right sphenoid sinus. The mastoid air cells are well pneumatized. Calvarium: The skeletal structures are osteopenic. The imaged calvarium appears intact. IMPRESSION: 1. There is no hemorrhage, mass effect, or evidence of acute territorial ischemia by CT criteria. 2. Unremarkable CT angiogram of the brain. 3. Pansinus disease as above. ACT 112: Negative or not required by law. Electronically signed by: Jaime Horvath M.D. 08/18/2023 4:37 PM
--- NOTE | 2023-08-18 17:57 | Hospitalist Progress Note ---
Date of Service August 18, 2023 Assessment & Plan (1) Pneumonia: Plan 87-year-old female with PMH of CLL, HTN, anxiety, depression, osteoarthritis, gout, GERD presented to the ER with complaint of cough & shortness of breath. 08/05/2023 +COVID-19 with unremarkable CXR. Symptoms progressed with worsening cough and SOB and continued fevers. She is being managed for the following: Recent infection with COVID-19 virus Likely superimposed bacterial pneumonia Pneumonia in an immunocompromised patient Presented with increasing shortness of breath and cough, recent history of infection with COVID-19 virus. In ER T: 37C, P: 110, 135/72, R: 25, 93% on RA. WBC: 159 (was 129 on 07/15/23). Lactate: 1.1, procalcitonin: 20. MRSA positive. CXR: Right upper lobe pneumonia. Mild right hilar prominence may represent underlying lymphadenopathy. Mild retrocardiac densities may represent atelectasis versus pneumonitis. In ER given 2L NSS, cefepime, vancomycin CT chest 08/14, reviewed. Patient w/ improving cough and sputum production, Nocturnal pulse ox 08/14 reviewed. Pansinus disease noted on imaging, Mucomyst and hypertonic saline to thin secretion. c/w Flonase. Continue with DuoNebs as needed, Tessalon Perle. Patient reports difficulty coughing up sputum now. c/w budesonide twice daily. c/w cough suppressant. Still with bouts of cough and has intermittent hypoxia. Recall pulmonology for intermittent hypoxia. Repeat CXR 08/17 w/ some pul vascular congestion, given iv lasix 20 mg 08/17, will hold on any further diuresis as patient is NPO. Transitioned Zosyn 08/12 and Doxy 08/12 to Augmentin 08/16 and linezolid / per pulm recommendation. Total therapy would be 14 days. But again changed back to unasyn and iv doxy on 08/17 given NPO status d/t swallowing issues under eval. Pulmonology evaluated, appreciate recommendation. Follow admitting sputum and blood culture. No growth so far. WBC high 2/2 underlying malignancy. Continue home prednisone 5 mg daily. Continue with incentive spirometry and flutter valve. Monitor clinically. Wean down oxygen as tolerated. Swallowing difficulty/dysphagia: Patient started having swallowing difficulty since 08/16 evening, CT head and neck reviewed, MRI brain pending, speech evaluating, GI on board, plan for EGD scope tomorrow, n.p.o. Patient on IV antibiotic. Appreciate GI recommendation. Infection due to COVID-19: COVID-19 infection noted initially on 05 August of this year. COVID remains positive on fifth of this month May be complicating current pneumonia Elevated troponin: Likely demand ischemia from hypoxemia secondary to acute illness. Troponin elevated at 457, down trended. Patient with no chest pain. EKG with sinus tachycardia. Echo with EF of 60 to 65%, LV wall motion normal, grade 1 medical dysfunction. Continue telemetry. Chronic lymphocytic leukemia: Has chronic lymphocytic leukemia WBC: 159 (was 129 on 07/15/23), Hgb: 11, Plt: 59 (at baseline) Receives IVIG monthly. Last was 07/16/[address] Vasquez Other chronic medical conditions: Continue with/resume home meds as and when able Chronic anemia/chronic thrombocytopenia/hypogammaglobulinemia - Stable. Anxiety and depression: Home citalopram held due to linezolid use. c/w home Lorazepam. Osteoarthritis: Continue home prednisone. DVT prophylaxis: SCDs, re- thrombocytopenia PT/OT recommending rehab., CM to assist with DC planning. Possibly patient will stay here for next 2-3 days. Plan is yet not finalized. Hence, not ready for rehab now. Conditional Code - would like trial of CPR/chest compression and defibrillation. Does not want advanced airway or intubation Follows with Dr Estrada for routine care Admission and Anticipated Discharge Date Admission Date: August 11, 2023 Subjective Patient was seen and examined at bedside. Patient was sitting up in bed, on room air, not in any acute distress. Patient reports cough getting better and making less sputum now. Has been sinus disease, Mucomyst and hypertonic saline nebs to help help thin secretion Patient with continued difficulty swallowing, CTA head and neck and MRI brain ordered. Discussed with GI, plan for scope tomorrow, n.p.o., speech following. Patient's son at bedside during second evaluation later in the day. He was updated on plan of care, consent for blood product transfusion obtained. They understand the risks and benefits. Patient with intermittent hypoxia, will recall pulmonology after GI issues are sorted out. Physical Exam Physical Exam: GENERAL: Alert and oriented x3. NAD, on RA. Ill/frail/weak appearing. HEENT: No pallor, no icterus. Pupils equal, round and reactive to light. Oral mucosa moist. NECK: No JVD, no neck masses. HEART: S1 and S2 heard. Regular rate and rhythm. + murmur, no gallop. RESPIRATORY SYSTEM: Normal AP diameter. No accessory muscle use. No wheezing, right lung crackles improving. ABDOMEN: Soft, bowel sounds present, nontender, no distention. CENTRAL NERVOUS SYSTEM: No facial droop. Speech is clear. Obeys simple commands. Moves extremities. EXTREMITIES: No edema, no erythema seen. BLE chr skin changes and discoloration noted. Results & Data Results & Data Vital Signs (Past 12 Hours) Vital Signs Temp Pulse Pulse Resp BP Pulse Ox O2 Del Method 08/18/23 16:00 104 H 08/18/23 11:18 36.4 C L 70 16 143/85 H 96 Nasal Cannula 08/18/23 08:00 88 08/18/23 08:00 Nasal Cannula 08/18/23 07:39 36.8 C 102 H 20 159/81 H 96 Nebulizer 08/18/23 07:36 102 H 12 96 Nasal Cannula 08/18/23 05:53 36.9 C 102 H 18 155/87 H 96 Nasal Cannula O2 Flow Rate 08/18/23 16:00 08/18/23 11:18 2 08/18/23 08:00 08/18/23 08:00 2 08/18/23 07:39 08/18/23 07:36 2 08/18/23 05:53 2
[2023-08-18] MEDS: ACETYLCYSTEINE 20% INHAL SOLN 4ML ***DISPENSED BY RESP. INH SCH (19:33)
[2023-08-18] MEDS: SODIUM CHLOR 7% 4 ML NEB NEB SCH (19:34)
[2023-08-18] MEDS: GADOBUTROL 65ML VIAL IV ONE (22:26)
[2023-08-19] MEDS ORDERED: Nursing to Pharmacy Communication SCH ×2 (06:15→13:15)
[2023-08-19 07:16] LABS: Hematocrit (blood only) 32.1 % (37.0-47.0); Hemoglobin 9.5 g/dl (12.0-16.0); Mean Corpuscular Hemoglobin 32.8 pg (25.0-34.0); Mean Corpuscular Hgb Conc 29.6 g/dL (32.0-36.0); Mean Corpuscular Volume 110.7 fL (80.0-100.0); Mean Platelet Volume 9.8 fL (9.4-12.4); Platelet Count 38 K/uL (130-400); RDW Coefficient of Variation 15.1 % (11.5-14.5); RDW Standard Deviation 58.1 fL (36.4-46.3); White Blood Count 145.74 K/ul (4.8-10.8)
[2023-08-19 07:25] LABS: BUN Creatinine Ratio 42.9 (10-20); Creatinine Clr Calc Pharmacy 39.1 ml/min; Est GFR (African American) 91.6 ml/min; Magnesium 1.8 mg/dl (1.7-2.4); Phosphorus 3.7 mg/dl (2.5-4.9); Potassium 3.9 mmol/L (3.5-5.1)
--- NOTE | 2023-08-19 08:04 | Anesthesiology Consultation ---
Date of Service August 19, 2023 History Surgery Operation Date: 08/19/23 16:45 Proposed Procedures p Esophagogastroduodenoscopy Dr. Jessenia Ruelas MD Height/Weight Height: 5 ft 3 in Weight: 42.2 kg Allergies Allergy/AdvReac Type Severity Reaction Status Date / Time nitrofurantoin Allergy Unknown UNKNOWN Verified 08/05/23 22:15 PER [facility] oxaprozin Allergy Unknown UNKNOWN Verified 08/05/23 22:15 PER [facility]G oxybutynin Allergy Unknown UNKNOWN Verified 08/05/23 22:15 PER [facility]G ciprofloxacin [From Cipro] AdvReac Intermediate Confusion Verified 08/05/23 22:15 melatonin AdvReac Intermediate OPPOSITE Verified 08/05/23 22:15 AFFECT mirabegron AdvReac Intermediate Hypertensio Verified 08/05/23 22:15 n Medications Home Medications Medication Instructions Recorded Confirmed Last Taken calcium citrate 250 mg 2 tab PO QAM 05/18/18 08/11/23 08/05/23 calcium-vitamin D3 5 mcg (200 unit) tablet citalopram 10 mg tablet 10 mg PO QAM 05/18/18 08/11/23 08/05/23 diclofenac sodium 1 % topical gel 2 g topical QID PRN Pain 02/20/21 08/11/23 Unknown cyanocobalamin (vitamin B-12) 1,000 mcg IM MONTHLY 01/14/22 08/11/23 Unknown 1,000 mcg/mL injection solution ammonium lactate 12 % topical cream 1 applic topical DIRECTED PRN 08/16/22 08/11/23 Unknown dry skin,arms and legs prednisone 5 mg tablet 5 mg PO DAILY 01/18/23 08/11/23 08/05/23 polyethylene glycol 3350 17 gram 17 g PO DAILY PRN constipation #30 01/19/23 08/11/23 Unknown oral powder packet (Miralax) ea sennosides 8.6 mg-docusate sodium 1 tab PO QAM #30 tabs 01/19/23 08/11/23 08/05/23 50 mg tablet (Senokot-S) fluticasone propionate 50 2 spray intranasal DAILY 08/05/23 08/11/23 08/05/23 mcg/actuation nasal spray,suspension loratadine 10 mg tablet (Claritin) 10 mg PO DAILY PRN Congestion 08/05/23 08/11/23 Unknown lorazepam 0.5 mg tablet 0.5 mg PO HS 08/05/23 08/11/23 08/04/23 multivitamin with minerals 1 tab PO DAILY 08/05/23 08/11/23 08/05/23 sodium chloride 0.65 % nasal spray 1 spray intranasal DIRECTED PRN 08/05/23 08/11/23 Unknown aerosol (Saline Nasal) Congestion benzonatate 100 mg capsule 100 mg PO TID PRN cough #30 caps 08/06/23 08/11/23 Unknown Active Medications Generic Name Dose Route Start Last Admin Trade Name Freq PRN Reason Stop Dose Admin Acetaminophen 650 mg 08/11/23 22:05 08/16/23 13:21 Acetaminophen 325 Mg Tab PO 09/10/23 22:04 650 mg Q4H PRN Administration Pain or Fever Acetylcysteine 5 ml 08/18/23 18:00 08/19/23 07:26 Acetylcysteine 20% Inhal Soln 4ml Dispensed By Resp. INH 09/17/23 17:59 Not Given Q12R GABI Benzonatate 100 mg 08/11/23 22:05 08/17/23 09:42 Benzonatate 100 Mg Capsule PO 09/10/23 22:04 100 mg TID PRN Administration cough Budesonide 0.5 mg 08/13/23 19:00 08/19/23 07:26 Budesonide 0.5 Mg/2 Ml Vial (Pulmicort) NEB 09/12/23 18:59 Not Given BIDR GABI Calcium/Vitamin D 2 tab 08/12/23 09:00 08/19/23 08:00 Calcium 600mg + Vit D 400 Iu Tab PO 09/11/23 08:59 Not Given QAM GABI Citalopram Hydrobromide 10 mg 08/12/23 09:00 08/16/23 08:14 Citalopram 20 Mg Tab PO 09/11/23 08:59 10 mg QAM GABI Administration Fluticasone Propionate 2 sprays 08/12/23 09:00 08/19/23 08:01 Fluticasone Propionate Na Spr 16 Gm Btl NATHAN 09/11/23 08:59 2 sprays DAILY GABI Administration Guaifenesin/Dextromethorphan 10 ml 08/13/23 15:30 08/19/23 08:00 Guaifenesin/Dextrom Syrup 200mg/20mg 10ml Udc PO 09/12/23 15:29 Not Given Q6H GABI Ampicillin Sodium/Sulbactam 100 mls @ 200 mls/hr 08/17/23 12:00 08/19/23 05:03 Sodium 3,000 mg/ Sodium IV 08/24/23 11:59 Infused Chloride Q6H GABI Infusion Doxycycline Hyclate 100 mg/ 100 mls @ 50 mls/hr 08/17/23 12:00 08/19/23 04:03 Dextrose IV 08/24/23 11:59 Infused Q12H GABI Infusion Lactobacillus Acidophilus 2 cap 08/17/23 09:00 08/19/23 08:00 Advanced Probiotic 1250 Mg Capsule PO 09/16/23 08:59 Not Given DAILY GABI Linezolid 600 mg 08/16/23 21:00 08/17/23 09:45 Linezolid 600 Mg Tab PO 08/23/23 20:59 600 mg BID GABI Administration Loratadine 10 mg 08/11/23 22:05 08/17/23 09:47 Loratadine 10 Mg Tab PO 09/10/23 22:04 10 mg DAILY PRN Administration Congestion Lorazepam 0.5 mg 08/17/23 21:00 08/18/23 21:44 Lorazepam 0.5 Mg Tab PO 09/16/23 20:59 Not Given HS GABI Multivitamins/Minerals 1 tab 08/12/23 09:00 08/19/23 08:00 Cerovite Adv Formula Tab PO 09/11/23 08:59 Not Given DAILY GABI Prednisone 5 mg 08/12/23 09:00 08/19/23 08:00 Prednisone 5 Mg Tab PO 09/11/23 08:59 Not Given DAILY GABI Senna/Docusate Sodium 1 tab 08/12/23 09:00 08/19/23 08:00 Docusate Sodium/Senna 50/8.6mg Tab PO 09/11/23 08:59 Not Given QAM GABI Sodium Chloride 4 ml 08/18/23 19:00 08/19/23 07:26 Sodium Chlor 7% 4 Ml Neb NEB 09/17/23 18:59 Not Given BIDR GABI Past Medical History Medical History (Updated 08/18/23 @ 15:20 by LOVE Moreira) Anxiety and depression Symptomatic anemia Anemia REZA (generalized anxiety disorder) Fracture of spine Closed tibia fracture Closed rib fracture Stress reaction GERD (gastroesophageal reflux disease) Diverticulosis of colon Osteoporosis Osteoarthritis Hypogammaglobulinemia, acquired History of squamous cell carcinoma Dyslipidemia Chronic lymphocytic leukemia Past Family History Family History Other Cancer Diabetes Heart disease Past Surgical History Surgical History History of orthopedic surgery Status post hysterectomy Social History Smoking Status: Never smoker Do You Dip or Chew Tobacco: No Hx Alcohol Use: Yes Alcohol type: beer alcohol intake frequency: holidays/special occasions only Hx Substance Use: No Physical Exam Vital Signs Last Vital Signs Temp 36.6 C 08/19/23 07:51 Pulse 108 H 08/19/23 07:51 Resp 16 08/19/23 07:51 BP 150/83 H 08/19/23 07:51 Pulse Ox 95 08/19/23 07:51 O2 Del Method Nasal Cannula 08/19/23 07:49 O2 Flow Rate 2 08/19/23 07:51 FiO2 21 08/15/23 15:38 Testing Laboratory Results 08/19/23 06:04 08/19/23 06:04 PT 10.2 Seconds (9.0-12.0) 08/11/23 15:54 INR 0.9 (0.9-1.1) 08/11/23 15:54 Urine Color Dark Yellow 08/12/23 16:04 Urine Appearance Cloudy (Clear) A 08/12/23 16:04 Urine pH 7.0 (4.5-7.5) 08/12/23 16:04 Ur Specific [place] 1.019 (1.000-1.030) 08/12/23 16:04 Urine Protein Trace (Negative) H 08/12/23 16:04 Urine Glucose (UA) Negative (Negative) 08/12/23 16:04 Urine Ketones Negative (Negative) 08/12/23 16:04 Urine Nitrite Negative (Negative) 08/12/23 16:04 Ur Leukocyte Esterase 2+ (Negative) H 08/12/23 16:04 Urine WBC (Auto) 0 /hpf (0-5) 08/12/23 16:04 Urine RBC (Auto) 0-4 /hpf (0-4) 08/12/23 16:04 U Hyaline Cast (Auto) 0 /lpf (0-5) 08/12/23 16:04 U Epithel Cells (Auto) 0-5 /lpf (0-5) 08/12/23 16:04 Urine Bacteria (Auto) 3+ (Negative) H 08/12/23 16:04 08/11/23 16:50 Aerobic Blood Culture - Final Blood No growth in Aerobic bottle after 5 days. Anaerobic Blood Culture - Final No growth in Anaerobic bottle after 5 days. 08/11/23 15:54 Aerobic Blood Culture - Final Blood No growth in Aerobic bottle after 5 days. Anaerobic Blood Culture - Final No growth in Anaerobic bottle after 5 days. 08/12/23 16:04 Urine Culture - Final Urine,Clean Catch More than three types of organisms present, all low counts mixed probable skin joseph. No further identifications or sensitivities to follow. 08/11/23 21:20 Gram Stain - Final Sputum, Expectorated Sputum Culture - Final Moderate normal joseph.
--- NOTE | 2023-08-19 08:06 | Magnetic Resonance Report ---
MRI OF THE BRAIN COMBO CLINICAL HISTORY: Difficulty swallowing. Stroke like symptoms. COMPARISON STUDY: CT of the brain dated 08/18/2023. TECHNIQUE: MRI of the brain was performed utilizing various T1 and T2-weighted sequences in the axial , sagittal, and coronal planes. Contrast-enhanced sequences were acquired following the administratio n of 4.5 cc of Gadavist. FINDINGS: Brain parenchyma: Questionable punctate focus of restricted diffusion versus artifact in the right ce rebellar hemisphere on image #7. No additional foci of restricted diffusion are seen to suggest acute ischemia. There is age-related involutional change noting moderate confluent subcortical and periven tricular microangiopathic disease. There is no hemorrhage or mass effect. No enhancing mass lesion is identified on the postcontrast images. Mtz-white matter differentiation is preserved. 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 No extra-axial fluid collection is see n. The cerebellar tonsils are normal in configuration. Ventricles, sulci, and cisterns: Prominent secondary to involutional change. Pituitary and sella: Unremarkable. Intracranial vasculature: Normal flow voids are maintained at the skull base. Orbits: The bony orbits are grossly intact. Orbital contents are normal in appearance noting bilatera l ocular lens implants. Sinuses and mastoids: There is mild mucosal thickening with an air-fluid level in the left maxillary antrum. Moderate mucosal thickening is noted in the ethmoid sinuses. There is mild mucosal thickening in the frontal and sphenoid sinuses. The mastoid air cells are clear. Calvarium: Unremarkable. Cervical cord: Partially visualized cervical spinal cord is normal in morphology and signal intensity . IMPRESSION: 1. Question a punctate focus of restricted diffusion versus artifact in the right cerebellar hemisphe re. A tiny acute to subacute lacunar infarct is not excluded. Correlate clinically. 2. No additional foci of restricted diffusion are identified. 3. There is no hemorrhage or mass effect. 4. Paranasal sinus disease as above. ACT 112: Negative or not required by law. Electronically signed by: Jaime Horvath M.D. 08/19/2023 8:04 AM
--- NOTE | 2023-08-19 08:32 | History & Physical Bridge Note ---
Date of Service August 19, 2023 History & Physical Bridge Note I have examined the patient, reviewed the History & Physical and in the interval since the performance of the History & Physical I have noted the following changes of clinical significance: no changes noted Supervising Physician Co-Signing Physician Notes EGD for evaluation of dysphagia
--- NOTE | 2023-08-19 08:46 | GI REPORT ---
Patient Name: Abigail Adams Procedure Date: 08/19/2023 8:31 AM Date of : 1935 Admit Type: Inpatient Age: 87 Gender: Female Attending MD: Luann Ruelas M.d., Procedure: Upper GI endoscopy Providers: Luann Ruelas M.d. Referring MD: Bety Batres Md Indications: Dysphagia Medicines: See the Anesthesia note for documentation of the administered medications Complications: No immediate complications. Estimated Blood Loss: Estimated blood loss: none. Procedure: Pre-Anesthesia Assessment: - Patient identification and proposed procedure were verified prior to the procedure by the physician, the nurse and the anesthesiologist. The procedure was verified in the pre-procedure area. - Prior to the procedure, a History and Physical was performed, and patient medications, allergies and sensitivities were reviewed. The patient's tolerance of previous anesthesia was reviewed. - The risks and benefits of the procedure and the sedation options and risks were discussed with the patient. All questions were answered and informed consent was obtained. After obtaining informed consent, the endoscope was passed under direct vision. Throughout the procedure, the patient's blood pressure, pulse, and oxygen saturations were monitored continuously. The Scope was introduced through the mouth, and advanced to the second part of duodenum. The upper GI endoscopy was accomplished without difficulty. Findings: The examined esophagus appeared normal. The Z-line appeared regular. The examined stomach appeared normal. The duodenal bulb and second portion of the duodenum appeared normal. Impression: - Normal esophagus. - Z-line regular. - Normal stomach. - Normal duodenal bulb and second portion of the duodenum. Recommendation: - Return to the floor. - No intrinsinc esophageal abnormality to explain her dysphagia. - Given the vfs results and also the amount of secretions noted in the upper pharynx- this is likely oropharyngeal dysphagia. Manasa Meza M.d. 08/19/2023 8:45:57 AM This report has been signed electronically. Note Initiated On: 08/19/2023 8:31 AM Number of Addenda: 0 I attest to the content of the Intraoperative Record and orders documented therein, exceptions below {[id number]}
--- NOTE | 2023-08-19 08:47 | Communication Note ---
Date of Service: August 19, 2023 EGD with findings of tortuous esophagus, pooled secretions in the upper pharynx. No further plans for endoscopic intervention. Likely her dysphagia is oropharyngeal.
--- NOTE | 2023-08-19 09:46 | Anesthesiology Progress Note ---
Date of Service August 19, 2023 Anesthesia Post Procedure Vital Signs Vital Signs: Temp Pulse Pulse Pulse Resp BP BP 08/19/23 09:10 105 H 16 139/70 08/19/23 08:58 103 H 16 123/67 08/19/23 08:41 36 C L 103 H 18 130/65 08/19/23 08:27 36.7 C 115 H 16 162/83 H 08/19/23 07:51 36.6 C 108 H 16 150/83 H 08/19/23 07:49 36.6 C 108 H 16 150/83 H 08/19/23 07:27 101 H 14 08/19/23 07:10 36.4 C L 98 H 18 153/87 H 08/19/23 06:40 36.5 C 100 H 18 144/76 H 08/19/23 06:25 36.7 C 100 H 18 139/77 08/19/23 06:06 36.5 C 98 H 18 154/82 H 08/19/23 05:56 36.5 C 99 H 17 154/82 H 08/19/23 02:42 36.8 C 95 H 18 124/71 08/18/23 23:04 36.7 C 120 H 24 138/82 08/18/23 21:49 08/18/23 21:35 117 H 08/18/23 19:58 36.4 C L 118 H 18 147/76 H 08/18/23 16:00 104 H 08/18/23 11:18 36.4 C L 70 16 143/85 H Pulse Ox O2 Del Method O2 Flow Rate 08/19/23 09:10 97 Nasal Cannula 2 08/19/23 08:58 100 Room Air 08/19/23 08:41 98 Oxymask 10 08/19/23 08:27 97 Room Air 08/19/23 07:51 95 2 08/19/23 07:49 95 Nasal Cannula 2 08/19/23 07:27 95 Nasal Cannula 2 08/19/23 07:10 98 2 08/19/23 06:40 98 2 08/19/23 06:25 99 08/19/23 06:06 99 08/19/23 05:56 99 Nasal Cannula 2 08/19/23 02:42 90 Nasal Cannula 2 08/18/23 23:04 93 Nasal Cannula 2 08/18/23 21:49 Nasal Cannula 2 08/18/23 21:35 08/18/23 19:58 91 Nasal Cannula 2 08/18/23 16:00 08/18/23 11:18 96 Nasal Cannula 2 Transfer of Care Handoff Completed per policy Notes Mental Status: alert / awake / arousable and participated in evaluation Nausea / Vomiting: adequately controlled Pain: adequately controlled Airway Patency, RR, SpO2: stable & adequate BP & HR: stable & adequate Hydration State: stable & adequate Anesthetic Complications: no major complications apparent and Pt Satisfied with anesthetic care
--- NOTE | 2023-08-19 10:17 | Communication Note ---
Date of Service: August 19, 2023 CT and EGD w/o cause of dysphagia - other than thick mucous on the vocal cords. Discussed w pt and primary hospitalists. Maybe consider a one week trial of an NG feeding tube and further coaching from Speech Pathology. Pt considering PEG - but verbalizes that she has "never wanted one." GI will sign off.
--- NOTE | 2023-08-19 11:29 | Neurology Consultation ---
Date of Consultation August 19, 2023 Assessment & Plan (1) Stroke: Possible acute to subacute right cerebellar punctate infarct per MRI review Agree with imaging report that an infarct cannot be ruled out Notably neurological exam appears without evidence of dysmetria or dysdiadochokinesia There is ongoing concern for dysphagia- possible in relation to area of concern for possible stroke Recommend repeat MRI brain without contrast Continue neurological assessments Obtain stat CT brain without contrast for any acute neurological decline Recommend antiplatelet and statin therapy as tolerated to provide secondary prevention Continue aspiration precautions Therapy services continue to follow Consider NGT or PEG at this time Continue to monitor/control blood pressure & blood glucose Metabolic workup should include hgbA1c, fasting lipids, homocysteine, TSH, D Dimer Ok from neurology perspective for VTE prophylaxis Telehealth Consultation Telehealth Information Telehealth Information: I performed this visit using a real-time telehealth connection between my location and the patients location ([facility]). After connecting through interactive tele-video, patient was identified by name and date of and/or wristband check.Patient (or authorized healthcare registered representative) was informed that this was a telemedicine visit and it was being conducted confidentially over secure lines. My office door was closed and no one else was present in the room with me.Patient (or authorized healthcare registered representative) provided consent to proceed with the visit, expressed an unde rstanding of privacy and security of the telemedicine visit, and gave permission to have a hospital registered representative in the room in order to assist with the visit and to conduct portions of the visit, as needed. I informed the patient (or authorized healthcare registered representative) that I reviewed their record and presented the opportunity for them to ask any questions regarding the visit today. The patient agreed to participate. History of Present Illness Reason for Consultation: Stroke Requesting Physician: Dr. Albert Attending Physician: Bety Batres MD History of Present Illness 87yo female with a hx of CLL as well as HTN, anxiety, depression and GERD presented on 08/11/23 with concern of shortness of breath. Was found to be COVID positive on 08/05. Unfortunately it appears symptoms have worsened including cough SOB and fevers. Now undergoing continued treatment for pneumonia with antimicrobial therapy and symptom management. Neurology consulted after she u nderwent an MRI of her brain revealing area of potential punctate infarct in right cerebellum. Patient reportedly had difficulty swallowing and has been seen by gastroenterology services. She has undergone an EGD without overt evidence of etiology for swallowing difficulties/dysphagia. Performed televideo consultation, family at bedside. patient able to answer questions appropriately, follow commands without difficulty. Can name objects repeat phrases noting only serve hypoacusis. Demonstrates no overt evidence of ataxia or dysmetria. Denies symptoms of difficulty reaching/grabbing for objects in space. Appears in no apparent distress or discomfort. No reported cephalgia or cervicalgia. Denies chest pain/palpitations or shortness of breath at this time. No reported changes in vision hearing dizziness syncope seizure like activity or paresthesia. Denies recent fevers chills nausea vomiting changes in bowels or bladder Denies recent medication changes, recent illness or sick contacts, no reported recent travel. She is agreeable to repeat MRI brain Allergies Allergy/AdvReac Type Severity Reaction Status Date / Time nitrofurantoin Allergy Unknown UNKNOWN Verified 08/19/23 08:26 PER [facility] oxaprozin Allergy Unknown UNKNOWN Verified 08/19/23 08:26 PER [facility] oxybutynin Allergy Unknown UNKNOWN Verified 08/19/23 08:26 PER [facility] ciprofloxacin [From Cipro] AdvReac Intermediate Confusion Verified 08/19/23 08:26 melatonin AdvReac Intermediate OPPOSITE Verified 08/19/23 08:26 AFFECT mirabegron AdvReac Intermediate Hypertensio Verified 08/19/23 08:26 n Home Medications Medication Instructions Recorded Confirmed Type calcium citrate 250 mg 2 tab PO QAM 05/18/18 08/11/23 History calcium-vitamin D3 5 mcg (200 unit) tablet citalopram 10 mg tablet 10 mg PO QAM 05/18/18 08/11/23 History diclofenac sodium 1 % topical gel 2 g topical QID PRN Pain 02/20/21 08/11/23 History cyanocobalamin (vitamin B-12) 1,000 mcg IM MONTHLY 01/14/22 08/11/23 History 1,000 mcg/mL injection solution ammonium lactate 12 % topical cream 1 applic topical DIRECTED PRN 08/16/22 08/11/23 History dry skin,arms and legs prednisone 5 mg tablet 5 mg PO DAILY 01/18/23 08/11/23 History polyethylene glycol 3350 17 gram 17 g PO DAILY PRN constipation #30 01/19/23 08/11/23 Rx oral powder packet (Miralax) ea sennosides 8.6 mg-docusate sodium 1 tab PO QAM #30 tabs 01/19/23 08/11/23 Rx 50 mg tablet (Senokot-S) fluticasone propionate 50 2 spray intranasal DAILY 08/05/23 08/11/23 History mcg/actuation nasal spray,suspension loratadine 10 mg tablet (Claritin) 10 mg PO DAILY PRN Congestion 08/05/23 08/11/23 History lorazepam 0.5 mg tablet 0.5 mg PO HS 08/05/23 08/11/23 History multivitamin with minerals 1 tab PO DAILY 08/05/23 08/11/23 History sodium chloride 0.65 % nasal spray 1 spray intranasal DIRECTED PRN 08/05/23 08/11/23 History aerosol (Saline Nasal) Congestion benzonatate 100 mg capsule 100 mg PO TID PRN cough #30 caps 08/06/23 08/11/23 Rx Patient History Medical History (Updated 08/19/23 @ 12:13 by Hitesh Herman DO) Anxiety and depression Symptomatic anemia Anemia REZA (generalized anxiety disorder) Fracture of spine Closed tibia fracture Closed rib fracture Stress reaction GERD (gastroesophageal reflux disease) Diverticulosis of colon Osteoporosis Osteoarthritis Hypogammaglobulinemia, acquired History of squamous cell carcinoma Dyslipidemia Chronic lymphocytic leukemia Surgical History History of orthopedic surgery Status post hysterectomy Family History Other Cancer Diabetes Heart disease Social History Smoking Status: Never smoker Second Hand Exposure: No; Do You Dip or Chew Tobacco: No; Hx Alcohol Use: Yes Alcohol type: beer Hx Substance Use: No Preferred Language: Slovak Communication Ability: Effective Communication Ability Comment: uses i-pad Cradle Slide Maker Required: No Beliefs That Will Affect Care: None marital status: / Current Living Situation: Alone Current Living Situation Comment: personal care givers Other Information That Helps Us Care for You: No Feels Safe at Home: Yes Safety Concerns: Feels Safe At This Time Assistive Devices: Cane, Stair Lift and Walker Physical Exam Neurological Examination: Mental Status: Severe hypoacusis Awake and alert. Oriented to person, place, and time. Fluency naming repetition and comprehension appear grossly intact. Affect remains appropriate. CN testing: I: Denies changes in ability to smell II:Reports no changes in visual acuity III/IV/: No evidence of gaze preference, hippus, nystagmus or roving eye movements V: Facial sensation is difficult to reliably assess VII: Facial movements appear without evidence of asymmetry VIII: Hearing appears grossly reduced bilaterally IX/X: Palate is unable to be accurately visualized XI: Shoulder shrug appears asymmetric/ however grossly intact bilaterally- noting chronic shoulder conditions XII: Tongue protrudes midline without evidence of biting Motor exam: Strength appears grossly intact/symmetric in all extremities Sensory: Sensation is reportedly grossly intact throughout Coordination: Finger to nose appears grossly intact. There is no apparent evidence of dysmetria or dysdiadochokinesia Reflexes: Deferred Gait: Deferred Results & Data Vital Signs (Past 12 Hours) Vital Signs Temp Pulse Pulse Resp BP BP Pulse Ox 08/19/23 11:04 36.6 C 115 H 18 154/75 H 98 08/19/23 09:58 08/19/23 09:10 105 H 16 139/70 97 08/19/23 08:58 103 H 16 123/67 100 08/19/23 08:41 36 C L 103 H 18 130/65 98 08/19/23 08:27 36.7 C 115 H 16 162/83 H 97 08/19/23 07:51 36.6 C 108 H 16 150/83 H 95 08/19/23 07:49 36.6 C 108 H 16 150/83 H 95 08/19/23 07:27 101 H 14 95 08/19/23 07:10 36.4 C L 98 H 18 153/87 H 98 08/19/23 06:40 36.5 C 100 H 18 144/76 H 98 08/19/23 06:25 36.7 C 100 H 18 139/77 99 08/19/23 06:06 36.5 C 98 H 18 154/82 H 99 08/19/23 06:00 91 H 08/19/23 05:56 36.5 C 99 H 17 154/82 H 99 08/19/23 02:42 36.8 C 95 H 18 124/71 90 O2 Del Method O2 Flow Rate 08/19/23 11:04 Room Air 08/19/23 09:58 Nasal Cannula 2 02/13/24 09:10 Nasal Cannula 2 08/19/23 08:58 Room Air 08/19/23 08:41 Oxymask 10 08/19/23 08:27 Room Air 08/19/23 07:51 2 08/19/23 07:49 Nasal Cannula 2 08/19/23 07:27 Nasal Cannula 2 08/19/23 07:10 2 08/19/23 06:40 2 08/19/23 06:25 08/19/23 06:06 08/19/23 06:00 08/19/23 05:56 Nasal Cannula 2 08/19/23 02:42 Nasal Cannula 2 Laboratory Results Abnormal lab results 08/19/23 Range/Units 06:04 WBC 145.74 H* (4.8-10.8) K/ul RBC 2.90 L (4.20-5.40) M/uL Hgb 9.5 L (12.0-16.0) g/dl Hct 32.1 L (37.0-47.0) % MCV 110.7 H (80.0-100.0) fL MCHC 29.6 L (32.0-36.0) g/dL RDW Std Deviation 58.1 H (36.4-46.3) fL RDW Coeff of Riley 15.1 H (11.5-14.5) % Plt Count 38 L (130-400) K/uL Anion Gap 13 H (3-11) BUN 30 H (6-23) mg/dl BUN/Creatinine Ratio 42.9 H (10-20) Glucose 65 L (70-99(Fasting)) mg/dl Diagnostic Findings Videofluoroscopic Swallow 08/18/23 10:35 FL video swallow CLINICAL HISTORY: assess for aspiration TECHNIQUE: Video fluoroscopy of the pharyngeal region was performed as barium mixtures of varying consistencies were administered to the patient by the speech pathologist. A formal esophagram was not performed. Comparison: None available at the time of this dictation. FINDINGS: Total fluoroscopy time: 1.14 minutes. Radiation dose: 3.23 mGy. Aspiration is seen with thin and nectar consistency barium. There was no laryngeal vestibular penetration or dayami tracheal aspiration. Pooling of barium was noted in the bilateral piriform sinuses and valleculae. IMPRESSION: Aspiration is seen as above. Please see the speech pathology report for further details. ACT 112: Negative or not required by law. Electronically signed by: Sarabjit Wade M.D. 08/18/2023 12:05 PM Brain MRI 08/18/23 15:00 MRI OF THE BRAIN COMBO CLINICAL HISTORY: Difficulty swallowing. Stroke like symptoms. COMPARISON STUDY: CT of the brain dated 08/18/2023. TECHNIQUE: MRI of the brain was performed utilizing various T1 and T2-weighted sequences in the axial, sagittal, and coronal planes. Contrast-enhanced sequences were acquired following the administration of 4.5 cc of Gadavist. FINDINGS: Brain parenchyma: Questionable punctate focus of restricted diffusion versus artifact in the right cerebellar hemisphere on image #7. No additional foci of restricted diffusion are seen to suggest acute ischemia. There is age-related i nvolutional change noting moderate confluent subcortical and periventricular microangiopathic disease. There is no hemorrhage or mass effect. No enhancing mass lesion is identified on the postcontrast images. Mtz-white matter differentiation is preserved. 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 No extra-axial fluid collection is seen. The cerebellar tonsils are normal in configuration. Ventricles, sulci, and cisterns: Prominent secondary to involutional change. Pituitary and sella: Unremarkable. Intracranial vasculature: Normal flow voids are maintained at the skull base. Orbits: The bony orbits are grossly intact. Orbital contents are normal in appearance noting bilateral ocular lens implants. Sinuses and mastoids: There is mild mucosal thickening with an air-fluid level in the left maxillary antrum. Moderate mucosal thickening is noted in the ethmoid sinuses. There is mild mucosal thickening in the frontal and sphenoid sinuses. The mastoid air cells are clear. Calvarium: Unremarkable. Cervical cord: Partially visualized cervical spinal cord is normal in morphology and signal intensity. IMPRESSION: 1. Question a punctate focus of restricted diffusion versus artifact in the right cerebellar hemisphere. A tiny acute to subacute lacunar infarct is not excluded. Correlate clinically. 2. No additional foci of restricted diffusion are identified. 3. There is no hemorrhage or mass effect. 4. Paranasal sinus disease as above. ACT 112: Negative or not required by law. Electronically signed by: Jaime Horvath M.D. 08/19/2023 8:04 AM Head CTA 08/18/23 15:00 CT ANGIOGRAM OF THE BRAIN COMBO CLINICAL HISTORY: Strokelike symptoms. Difficulty swallowing. COMPARISON STUDY: CT of the brain dated 01/05/2023. TECHNIQUE: Unenhanced axial CT scan of the brain is performed. Subsequently, following the IV administration of 115 cc of Optiray 320, CT angiogram of the brain was performed from the skull base to the vertex. Images are reviewed in the axial, sagittal, and coronal planes. 3-D MIPS images are created and assessed. IV contrast was administered without complication. A dose lowering technique was utilized adhering to the principles of ALARA. FINDINGS: Brain parenchyma: There is age-related involutional change noting mild subcortical and periventricular microangiopathic disease. There is no hemorrhage, mass effect, or evidence of acute territorial ischemia by CT criteria. There is no evidence of enhancing mass lesion on the angiogram phase images. No extra-axial fluid collection is seen. Mtz-white matter differentiation is preserved. Ventricles, sulci, and cisterns: Prominent secondary to involutional change. CT angiogram of the brain: There is atherosclerotic calcification of the cavernous carotid and vertebral arteries. The internal carotid arteries are widely patent, as are the anterior and middle cerebral arteries. The vertebrobasilar system and posterior cerebral arteries are widely patent. The left vertebral artery is dominant. There is a right posterior communicating artery. There is no aneurysm, high-grade stenosis, or focal vessel cutoff identified throughout the intracranial circulation. Dural sinuses: Clear as visualized. Orbits: The bony orbits are intact. The orbital contents are normal as visualized noting bilateral ocular lens implants. Sinuses and mastoids: There is an air-fluid level in the left maxillary antrum. Moderate mucosal thickening is noted in the ethmoid sinuses. There is trace mucosal thickening in the left frontal sinus and the right sphenoid sinus. The mastoid air cells are well pneumatized. Calvarium: The skeletal structures are osteopenic. The imaged calvarium appears intact. IMPRESSION: 1. There is no hemorrhage, mass effect, or evidence of acute territorial ischemia by CT criteria. 2. Unremarkable CT angiogram of the brain. 3. Pansinus disease as above. ACT 112: Negative or not required by law. Electronically signed by: Jaime Horvath M.D. 08/18/2023 4:37 PM Neck CTA 08/18/23 15:00 CT angio neck with con CLINICAL HISTORY: ro stroke, mass, swallow difficulty TECHNIQUE: CT angiography of the neck was performed following intravenous administration of iodinated contrast. Coronal and sagittal MIPS were obtained from the axial data set and were submitted for review. Automated dose lowering techniques and/or adjustment according to patient size were utilized for this examination. All measurements were calculated based on NASCET criteria. CT DOSE: 1002.5 mGy.cm Comparison: None available at the time of this dictation. FINDINGS: Emphysema and airspace opacities are partially seen in the lungs. CTA Neck: A 3 vessel aortic arch is shown. There is no significant atherosclerotic plaque in the aortic arch or the origins of the innominate, left common carotid, and left subclavian arteries. The common carotid, external carotid, cervical segments of the internal carotid arteries, and the cervical segments of the vertebral arteries are patent without hemodynamically significant stenosis. The left vertebral artery is dominant. IMPRESSION: 1. No occlusion, hemodynamically significant stenosis, or dissection in the major cervical arteries. 2. Partial visualization of airspace opacities as above in this patient with history of pneumonia. Assessment of stenosis of the internal carotid arteries is based on NASCET criteria. ACT 112: Negative or not required by law. Electronically signed by: Sarabjit Wade M.D. 08/18/2023 4:20 PM Medications Administered Home Medications Medication Instructions Recorded Confirmed Last Taken calcium citrate 250 mg 2 tab PO QAM 05/18/18 08/11/23 08/05/23 calcium-vitamin D3 5 mcg (200 unit) tablet citalopram 10 mg tablet 10 mg PO QAM 05/18/18 08/11/23 08/05/23 diclofenac sodium 1 % topical gel 2 g topical QID PRN Pain 02/20/21 08/11/23 Unknown cyanocobalamin (vitamin B-12) 1,000 mcg IM MONTHLY 01/14/22 08/11/23 Unknown 1,000 mcg/mL injection solution ammonium lactate 12 % topical cream 1 applic topical DIRECTED PRN 08/16/22 08/11/23 Unknown dry skin,arms and legs prednisone 5 mg tablet 5 mg PO DAILY 01/18/23 08/11/23 08/05/23 polyethylene glycol 3350 17 gram 17 g PO DAILY PRN constipation #30 01/19/23 08/11/23 Unknown oral powder packet (Miralax) ea sennosides 8.6 mg-docusate sodium 1 tab PO QAM #30 tabs 07/16/23 02/05/24 01/30/24 50 mg tablet (Senokot-S) fluticasone propionate 50 2 spray intranasal DAILY 08/05/23 08/11/23 08/05/23 mcg/actuation nasal spray,suspension loratadine 10 mg tablet (Claritin) 10 mg PO DAILY PRN Congestion 08/05/23 08/11/23 Unknown lorazepam 0.5 mg tablet 0.5 mg PO HS 08/05/23 08/11/23 08/04/23 multivitamin with minerals 1 tab PO DAILY 08/05/23 08/11/23 08/05/23 sodium chloride 0.65 % nasal spray 1 spray intranasal DIRECTED PRN 08/05/23 08/11/23 Unknown aerosol (Saline Nasal) Congestion benzonatate 100 mg capsule 100 mg PO TID PRN cough #30 caps 08/06/23 08/11/23 Unknown Active Medications Generic Name Dose Route Start Last Admin Trade Name Freq PRN Reason Stop Dose Admin Acetaminophen 650 mg 08/11/23 22:05 08/16/23 13:21 Acetaminophen 325 Mg Tab PO 09/10/23 22:04 650 mg Q4H PRN Administration Pain or Fever Acetylcysteine 5 ml 08/18/23 18:00 08/19/23 07:26 Acetylcysteine 20% Inhal Soln 4ml Dispensed By Resp. INH 09/17/23 17:59 Not Given Q12R GABI Benzonatate 100 mg 08/11/23 22:05 08/17/23 09:42 Benzonatate 100 Mg Capsule PO 09/10/23 22:04 100 mg TID PRN Administration cough Budesonide 0.5 mg 08/13/23 19:00 08/19/23 07:26 Budesonide 0.5 Mg/2 Ml Vial (Pulmicort) NEB 09/12/23 18:59 Not Given BIDR GABI Calcium/Vitamin D 2 tab 08/12/23 09:00 08/19/23 08:00 Calcium 600mg + Vit D 400 Iu Tab PO 09/11/23 08:59 Not Given QAM GABI Citalopram Hydrobromide 10 mg 08/12/23 09:00 08/16/23 08:14 Citalopram 20 Mg Tab PO 09/11/23 08:59 10 mg QAM GABI Administration Fluticasone Propionate 2 sprays 08/12/23 09:00 08/19/23 08:01 Fluticasone Propionate Na Spr 16 Gm Btl NATHAN 09/11/23 08:59 2 sprays DAILY GABI Administration Guaifenesin/Dextromethorphan 10 ml 08/13/23 15:30 08/19/23 08:00 Guaifenesin/Dextrom Syrup 200mg/20mg 10ml Udc PO 09/12/23 15:29 Not Given Q6H GABI Ampicillin Sodium/Sulbactam 100 mls @ 200 mls/hr 08/17/23 12:00 08/19/23 11:10 Sodium 3,000 mg/ Sodium IV 08/24/23 11:59 Infused Chloride Q6H GABI Infusion Doxycycline Hyclate 100 mg/ 100 mls @ 50 mls/hr 08/17/23 12:00 08/19/23 04:03 Dextrose IV 08/24/23 11:59 Infused Q12H GABI Infusion Lactobacillus Acidophilus 2 cap 08/17/23 09:00 08/19/23 08:00 Advanced Probiotic 1250 Mg Capsule PO 09/16/23 08:59 Not Given DAILY GABI Linezolid 600 mg 08/16/23 21:00 08/17/23 09:45 Linezolid 600 Mg Tab PO 08/23/23 20:59 600 mg BID GABI Administration Loratadine 10 mg 08/11/23 22:05 08/17/23 09:47 Loratadine 10 Mg Tab PO 09/10/23 22:04 10 mg DAILY PRN Administration Congestion Lorazepam 0.5 mg 08/17/23 21:00 08/18/23 21:44 Lorazepam 0.5 Mg Tab PO 09/16/23 20:59 Not Given HS GABI Multivitamins/Minerals 1 tab 08/12/23 09:00 08/19/23 08:00 Cerovite Adv Formula Tab PO 09/11/23 08:59 Not Given DAILY GABI Prednisone 5 mg 08/12/23 09:00 08/19/23 08:00 Prednisone 5 Mg Tab PO 09/11/23 08:59 Not Given DAILY GABI Senna/Docusate Sodium 1 tab 08/12/23 09:00 08/19/23 08:00 Docusate Sodium/Senna 50/8.6mg Tab PO 09/11/23 08:59 Not Given QAM GABI Sodium Chloride 4 ml 08/18/23 19:00 08/19/23 07:26 Sodium Chlor 7% 4 Ml Neb NEB 09/17/23 18:59 Not Given BIDR GABI
--- NOTE | 2023-08-19 12:01 | Pulmonology Progress Note ---
Date of Service August 19, 2023 Assessment & Plan (1) Pneumonia: (2) Acute dyspnea: (3) Chronic lymphocytic leukemia: Plan CT chest 08/14/2023 personally reviewed: Patchy opacities appreciated in the right upper lobe as well as right lower lobe Dependent atelectasis bilateral lower lobe Cardiomegaly with small bilateral pleural effusion Right hilar lymphadenopathy 2D echo 08/12/2023: EF 60-65%, mild concentric LVH, grade 1 diastolic dysfunction, mild TR, mild AR, RV normal in size and function Spirometry 01/20/2020: No obstructive lung dysfunction, normal flow volume loop, bronchodilator test not done. FVC 2.03 L, 81%, FEV1 1.82 L, 101%, FEV1/FVC 90% No obstructive lung dysfunction, normal flow volume loop, bronchodilator test not done. FVC 2.03 L, 81%, FEV1 1.82 L, 101%, FEV1/FVC 90% -- Multilobar pneumonia Nasal MRSA positive, procalcitonin 20.25 Respiratory bio fire positive for COVID 08/11/2023 --Multiple pulmonary nodules Patient is a CT chest was 06/25/2016 which showed unchanged multiple pulmonary nodules, most of them are calcified. Patient has left lower lobe nodularity which looks more like scarring and it was unchanged since 2014 Given that the patient is a non-smoker and at low risk No need to follow-up this pulmonary nodules --CLL Follows up with oncology and is on chronic prednisone for it --Hypogammaglobulinemia Gets gammaglobulins from hematology Plan: Follow-up BNP. Patient is +9 L since coming to the hospital. Unsure if urine output was measured during the hospitalization. Chest x-ray from 08/17/2023 showed some pulmonary vascular congestion. Repeat chest x-ray from today shows improvement in the vascular congestion as well as decrease in intensity of the right upper lobe opacity. BNP as well as procalcitonin are also trending down. Would recommend to continue and complete the course of antibiotics for total of 7 days. Case was discussed with Dr. Batres No further recommendation from pulmonary perspective, will sign off Please call directly with any questions Please note the above document was generated using voice recognition software. It may contain grammatical, syntax or spelling errors.Any formal questions or concerns about the content, text or information contained within the body of this dictation should be directly addressed to the provider for clarification. Admission and Anticipated Discharge Date Admission Date: August 11, 2023 Subjective 87-year-old known patient of mine from outpatient clinic was admitted to the hospital because of shortness of breath Past medical history: CLL(diagnosed 1983) on chronic prednisone, hypertension, dyslipidemia, osteoporosis Patient is being treated for pneumonia. She was seen by Dr. Caro. Pulmonary consulted because of persistent hypoxia At the time of examination patient was on 2 L nasal cannula saturating 97% Not in any acute respiratory distress Denied any chest pain, no chest tightness Occasional cough with clear phlegm. Denied any hemoptysis Has been afebrile Social history: Non-smoker, no illicit drug use, no alcohol use. 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 No exposure to chemicals or fumes Pets: None. No birds or poultry nearby. Allergies: None No personal or family history of asthma. No family history of lung cancer. Mother from brain aneurysm and there was skin cancer in brother. Review of Systems 2 Review of Systems: All systems reviewed & are unremarkable except as noted in Subjective Physical Exam 2 Physical Exam: Constitutional: No acute distress HEENT: EOMI, PERRLA, very hard to hear Respiratory system: Decreased air entry bilaterally, no wheeze, no rhonchi, positive crackles bilaterally CVS: S1-S2 positive, no murmurs or gallops, tachycardia Abdomen: Soft, nontender, nondistended, positive bowel sounds x4 Extremities: +2 pulses bilaterally radialis/ dorsalis pedis, no cyanosis, p ositive pitting edema bilateral lower extremity Neuro: Awake alert oriented to self and place Psych: Normal mood and affect G/U: No Ly Skin: no rashes, warm and dry Lymphatic: no cervical or axillary lymphadenopathy Results & Data Results & Data Vital Signs (Past 12 Hours) Vital Signs Temp Pulse Pulse Resp BP BP Pulse Ox 08/19/23 11:04 36.6 C 115 H 18 154/75 H 98 08/19/23 09:58 08/19/23 09:10 105 H 16 139/70 97 08/19/23 08:58 103 H 16 123/67 100 08/19/23 08:41 36 C L 103 H 18 130/65 98 08/19/23 08:27 36.7 C 115 H 16 162/83 H 97 08/19/23 07:51 36.6 C 108 H 16 150/83 H 95 08/19/23 07:49 36.6 C 108 H 16 150/83 H 95 08/19/23 07:27 101 H 14 95 08/19/23 07:10 36.4 C L 98 H 18 153/87 H 98 08/19/23 06:40 36.5 C 100 H 18 144/76 H 98 08/19/23 06:25 36.7 C 100 H 18 139/77 99 08/19/23 06:06 36.5 C 98 H 18 154/82 H 99 08/19/23 06:00 91 H 08/19/23 05:56 36.5 C 99 H 17 154/82 H 99 08/19/23 02:42 36.8 C 95 H 18 124/71 90 O2 Del Method O2 Flow Rate 08/19/23 11:04 Nasal Cannula 2 08/19/23 09:58 Nasal Cannula 2 08/19/23 09:10 Nasal Cannula 2 08/19/23 08:58 Room Air 08/19/23 08:41 Oxymask 10 08/19/23 08:27 Room Air 08/19/23 07:51 2 08/19/23 07:49 Nasal Cannula 2 08/19/23 07:27 Nasal Cannula 2 08/19/23 07:10 2 08/19/23 06:40 2 08/19/23 06:25 08/19/23 06:06 08/19/23 06:00 08/19/23 05:56 Nasal Cannula 2 08/19/23 02:42 Nasal Cannula 2 Laboratory Results 08/19/23 06:04 08/19/23 06:04 PG Care Time/CCT Total # of Minutes Spent Total Time Spent with Patient: Total time spent is greater than 50% in coordination of care (as documented) at patient's floor/unit and/or counseling patient: Coding Level of Care Code 77428 SUB INP/OBS CARE 3/50MIN Diagnoses Pneumonia J18.9 Acute dyspnea R06.00 Chronic lymphocytic leukemia C91.10
--- NOTE | 2023-08-19 12:53 | XRay Report ---
XR chest 1V portable HISTORY: Pneumonia. Shortness of breath. Follow-up. COMPARISON: Chest 08/17/2023. FINDINGS: No pneumothorax. No pleural effusions. The heart remains mildly enlarged. No evidence for p ulmonary edema. The right lung airspace opacities have improved. Focal right upper lobe densities per sist. Left basilar linear densities are again noted. No evidence for pulmonary edema. There is right shoulder prosthesis. Severe degenerative changes within the left shoulder. There are calcifications w ithin the aortic knob. Old, healed left-sided rib fractures again noted. Extensive bilateral breast c alcifications, unchanged. IMPRESSION: Interval improvement in the bilateral airspace opacities. ACT 112: Negative or not required by law. Electronically signed by: Pelon Denton M.D. 08/19/2023 12:52 PM
[2023-08-19] MEDS: ASPIRIN 81 MG ECTAB PO SCH (13:08)
--- NOTE | 2023-08-19 14:19 | Magnetic Resonance Report ---
MR brain wo con CLINICAL HISTORY: f/u stroke, neuro recs TECHNIQUE: Multiplanar and multisequence MR images of the brain were obtained without intravenous con trast. Comparison: Comparison is made to MRI brain 08/18/2023 FINDINGS: Previously noted right cerebellar hemisphere punctate focus of restricted diffusion is slightly more prominent on today's exam. No additional foci of restricted diffusion are seen. Foci of T2 and FLAIR hyperintensity are noted in the paraventricular areas consistent with chronic small vessel ischemic d isease. Ex vacuo ventriculomegaly and sulcal enlargement is noted compatible with diffuse volume loss . No mass is seen. There is no mass effect or midline shift. There is no evidence of acute intraparen chymal hemorrhage. No extra axial fluid collections are seen. The corpus callosum, pituitary gland, a nd cerebellar tonsils appear grossly unremarkable. Flow voids of the major intracranial arterial vessels are identified. The imaged portions of the para nasal sinuses, mastoid air cells, and orbits are unremarkable. IMPRESSION: Punctate focus of restricted diffusion in the right cerebellum is more conspicuous than in the prior exam, compatible with a tiny acute infarct. ACT 112: Negative or not required by law. Electronically signed by: Sarabjit Wade M.D. 08/19/2023 2:17 PM
--- NOTE | 2023-08-19 15:09 | Hospitalist Progress Note ---
Date of Service August 19, 2023 Assessment & Plan (1) Pneumonia: Plan 87-year-old female with PMH of CLL, HTN, anxiety, depression, osteoarthritis, gout, GERD presented to the ER with complaint of cough & shortness of breath. 08/05/2023 +COVID-19 with unremarkable CXR. Symptoms progressed with worsening cough and SOB and continued fevers. She is being managed for the following: Recent infection with COVID-19 virus Likely superimposed bacterial pneumonia Pneumonia in an immunocompromised patient Presented with increasing shortness of breath and cough, recent history of infection with COVID-19 virus. In ER T: 37C, P: 110, 135/72, R: 25, 93% on RA. WBC: 159 (was 129 on 07/15/23). Lactate: 1.1, procalcitonin: 20. MRSA positive. CXR: Right upper lobe pneumonia. Mild right hilar prominence may represent underlying lymphadenopathy. Mild retrocardiac densities may represent atelectasis versus pneumonitis. In ER given 2L NSS, cefepime, vancomycin CT chest 08/14, reviewed. Patient w/ improving cough and sputum production, Nocturnal pulse ox 08/14 reviewed. Pansinus disease noted on imaging, Mucomyst and hypertonic saline to thin secretion. c/w Flonase. Continue with DuoNebs as needed, Tessalon Perle. c/w budesonide twice daily. c/w cough suppressant. Still with bouts of cough and has intermittent hypoxia. Recalled pulmonology for intermittent hypoxia. Will follow Repeat CXR 08/17 w/ some pul vascular congestion, given iv lasix 20 mg 08/17, will hold on any further diuresis as patient is NPO. Transitioned Zosyn 08/12 and Doxy 08/12 to Augmentin 08/16 and linezolid 08/16 per pulm recommendation. Total therapy would be 14 days. But again changed back to unasyn and iv doxy on 08/17 given NPO status d/t swallowing issues under eval. Follow admitting sputum and blood culture. No growth so far. WBC high 2/2 underlying malignancy. Continue home prednisone 5 mg daily. Continue with incentive spirometry and flutter valve. Monitor clinically. Wean down oxygen as tolerated. Swallowing difficulty/dysphagia: Patient started having swallowing difficulty since 08/16 evening, CT head and neck reviewed, MRI brain w/ tiny rt cerebellar stroke, speech evaluating, GI on board, s/p EGD scope 08/19 - concern for oropharyngeal dysphagia. NG Tube and feeding, district adviser consult placed. Pt deciding on PEG tube, will follow. Right cerebellar stroke: Denies stroke noted on 08/18 MRI. No evidence of dysmetria or dysdiadochokinesia. Neurology evaluated, patient started on DAPT and statin. Patient's family were made aware. Patient to follow-up with neurology upon discharge. Follow-up on A1c and fasting lipid, homocystine and other labs tomorrow. Infection due to COVID-19: COVID-19 infection noted initially on 05 August of this year. COVID remains positive on fifth of this month. Off isolation. May be complicated current pneumonia Elevated troponin: Likely demand ischemia from hypoxemia secondary to acute illness. Troponin elevated at 457, down trended. Patient with no chest pain. EKG with sinus tachycardia. Echo with EF of 60 to 65%, LV wall motion normal, grade 1 medical dysfunction. Continue telemetry. Chronic lymphocytic leukemia: Has chronic lymphocytic leukemia WBC: 159 (was 129 on 07/15/23), Hgb: 11, Plt: 59 (at baseline) Receives IVIG monthly. Last was 07/16/[address] Vasquez Other chronic medical conditions: Continue with/resume home meds as and when able Chronic anemia/chronic thrombocytopenia/hypogammaglobulinemia - Stable. Anxiety and depression: Home citalopram held due to linezolid use. c/w home Lorazepam. Osteoarthritis: Continue home prednisone. DVT prophylaxis: SCDs, re- thrombocytopenia PT/OT recommending rehab., CM to assist with DC planning. Possibly patient will stay here for next 2-3 days. Plan is yet not finalized. Hence, not ready for rehab now. Conditional Code - would like trial of CPR/chest compression and defibrillation. Does not want advanced airway or intubation Follows with Dr Estrada for routine care Admission and Anticipated Discharge Date Admission Date: August 11, 2023 Subjective Patient was seen and examined at bedside. Patient was lying in bed, on room air, not in any acute distress. Patient's caregiver at bedside who was updated along with patient in detail about the plan of care. They are updated regarding tiny stroke in the right cerebellum, updated regarding neurology recommendation to initiate DAPT and statin, updated regarding EGD scope finding and discussed the nutrition modality [NG versus PEG tube]. For now patient wants to be on NG tube and be evaluated by speech therapy while inpatient. Patient reports that she is thinking about PEG tube but will want to go with NG tube for now. Same update has been communicated to patient's daughter Sola over the phone. Also the update was communicated to patient's son Thierry at bedside during later visit. Patient reports cough getting better and making less sputum now. Patient with continued difficulty swallowing, plan for NG tube and nutrition. Physical Exam 2 Physical Exam: GENERAL: Alert and oriented x3. NAD, on RA. Ill/frail/weak appearing. HEENT: No pallor, no icterus. Pupils equal, round and reactive to light. Oral mucosa moist. NECK: No JVD, no neck masses. HEART: S1 and S2 heard. Regular rate and rhythm. + murmur, no gallop. RESPIRATORY SYSTEM: Normal AP diameter. No accessory muscle use. No wheezing, right lung crackles improving. ABDOMEN: Soft, bowel sounds present, nontender, no distention. CENTRAL NERVOUS SYSTEM: No facial droop. Speech is clear. Obeys simple commands. Moves extremities. EXTREMITIES: No edema, no erythema seen. BLE chr skin changes and discoloration noted. Results & Data Results & Data Vital Signs (Past 12 Hours) Vital Signs Temp Pulse Pulse Resp BP BP Pulse Ox 08/19/23 11:04 36.6 C 115 H 18 154/75 H 98 08/19/23 09:58 08/19/23 09:10 105 H 16 139/70 97 08/19/23 08:58 103 H 16 123/67 100 08/19/23 08:41 36 C L 103 H 18 130/65 98 08/19/23 08:27 36.7 C 115 H 16 162/83 H 97 08/19/23 07:51 36.6 C 108 H 16 150/83 H 95 08/19/23 07:49 36.6 C 108 H 16 150/83 H 95 08/19/23 07:27 101 H 14 95 08/19/23 07:10 36.4 C L 98 H 18 153/87 H 98 08/19/23 06:40 36.5 C 100 H 18 144/76 H 98 08/19/23 06:25 36.7 C 100 H 18 139/77 99 08/19/23 06:06 36.5 C 98 H 18 154/82 H 99 08/19/23 06:00 91 H 08/19/23 05:56 36.5 C 99 H 17 154/82 H 99 O2 Del Method O2 Flow Rate 08/19/23 11:04 Nasal Cannula 2 08/19/23 09:58 Nasal Cannula 2 08/19/23 09:10 Nasal Cannula 2 08/19/23 08:58 Room Air 08/19/23 08:41 Oxymask 10 08/19/23 08:27 Room Air 08/19/23 07:51 2 08/19/23 07:49 Nasal Cannula 2 08/19/23 07:27 Nasal Cannula 2 08/19/23 07:10 2 08/19/23 06:40 2 08/19/23 06:25 08/19/23 06:06 08/19/23 06:00 08/19/23 05:56 Nasal Cannula 2
[2023-08-19] MEDS: LIDOCAINE 2% 2 ML VIAL/AMP(20MG/ML) INFIL ONE (16:03)
[2023-08-19] MEDS: PROPOFOL IV EMULSION 10 MG/ML 20 ML VIAL IV ONE (16:04)
--- NOTE | 2023-08-19 16:24 | XRay Report ---
XR chest 1V portable CLINICAL HISTORY: take cxr after ng tube for placement confirmation TECHNIQUE: Single frontal radiograph of the chest was obtained. Comparison: Comparison is made to chest radiograph 08/19/2023 FINDINGS: Right reverse shoulder arthroplasty is seen. Degenerative changes are seen in left shoulder. Enteric tube has been placed with the tip at the gastroesophageal junction. Calcified aortic knob is seen. Th e lungs are clear. Blunting of the right costophrenic angle is seen. IMPRESSION: Enteric tube side-port is at the gastroesophageal junction, the tube can be advanced approximately 5 cm for improved positioning. ACT 112: Negative or not required by law. Electronically signed by: Sarabjit Wade M.D. 08/19/2023 4:22 PM
[2023-08-19] MEDS: ASPIRIN 81 MG CHEW NG SCH (16:30)
[2023-08-19] MEDS: ATORVASTATIN 40 MG TAB PO SCH (16:30)
[2023-08-19] MEDS: CLOPIDOGREL BISULFATE 75 MG TAB PO SCH (16:30)
[2023-08-19] MEDS: FIBERSOURCE HN 1.2 CAL 1000 ML BAG GT SCH (17:40)
[2023-08-19] MEDS: TUBE FEEDING WATER FLUSH GT SCH (17:41)
[2023-08-19] MEDS: IPRATROPIUM BROMIDE NEB SOLN 0.02% 0.5MG/2.5ML VIAL INH PRN (19:52)
[2023-08-19] MEDS: LEVALBUTEROL 1.25 MG/3 ML NEB NEB PRN (19:53)
[2023-08-20 08:08] LABS: Estimated Average Glucose 134 mg/dl; Hemoglobin A1C 6.3 % (4.5-5.6)
[2023-08-20 08:10] LABS: D Dimer 1940 ug/L FEU (0-500)
[2023-08-20 08:30] LABS: Hematocrit (blood only) 31.3 % (37.0-47.0); Hemoglobin 9.2 g/dl (12.0-16.0); Mean Corpuscular Hemoglobin 32.4 pg (25.0-34.0); Mean Corpuscular Hgb Conc 29.4 g/dL (32.0-36.0); Mean Corpuscular Volume 110.2 fL (80.0-100.0); Mean Platelet Volume 10.3 fL (9.4-12.4); Platelet Count 41 K/uL (130-400); RDW Coefficient of Variation 14.7 % (11.5-14.5); RDW Standard Deviation 57.3 fL (36.4-46.3); Red Blood Count 2.84 M/uL (4.20-5.40); White Blood Count 145.53 K/ul (4.8-10.8)
[2023-08-20 09:14] LABS: Calcium 8.7 mg/dl (8.6-10.3); Magnesium 1.7 mg/dl (1.7-2.4)
[2023-08-20 09:20] LABS: BUN Creatinine Ratio 51.6 (10-20); Chol HDL Ratio 6.4 (0-5); Creatinine Clr Calc Pharmacy 45.6 ml/min; Est GFR (African American) 95.3 ml/min; Est GFR (Non-African American) 82.2 ml/min; Phosphorus 3.1 mg/dl (2.5-4.9)
[2023-08-20 09:45] LABS: Thyroid Stimulating Hormone 0.971 uIu/ml (0.300-4.500)
--- NOTE | 2023-08-20 10:22 | Hospitalist Progress Note ---
Date of Service August 20, 2023 Assessment & Plan (1) Pneumonia: Plan 87-year-old female with PMH of CLL, HTN, anxiety, depression, osteoarthritis, gout, GERD presented to the ER with complaint of cough & shortness of breath. Recently diagnosed of COVID 19 infection on 08/05/2023 with unremarkable CXR. Symptoms progressed with worsening cough and SOB and continued fevers. She is being managed for the following: Recent infection with COVID-19 virus Likely superimposed bacterial pneumonia Pneumonia in an immunocompromised patient Presented with increasing shortness of breath and cough, recent history of infection with COVID-19 virus. In ER T: 37C, P: 110, 135/72, R: 25, 93% on RA. On admission, WBC: 159 (was 129 on 07/15/23). Lactate: 1.1, procalcitonin: 20. MRSA positive. CXR: Right upper lobe pneumonia. Mild right hilar prominence may represent underlying lymphadenopathy. Mild retrocardiac densities may represent atelectasis versus pneumonitis. In ER, she got IVF, cefepime, vancomycin Chest CT reviewed. Noted Right lung multifocal consolidation, small pleural effusion (R>L) Nocturnal pulse ox 08/14 reviewed. Pansinus disease noted on CT head Infectious workup negative so far Procal trended down to 0.78 Repeat CXR 08/17 w/ some pul vascular congestion, given iv lasix 20 mg 08/17, will hold on any further diuresis as patient is NPO. Transitioned Zosyn 08/12 and Doxy 08/12 to Augmentin 08/16 and linezolid 08/16 per pulm recommendation. But again changed back to unasyn and iv doxy on 08/17 given NPO status d/t swallowing issues Plan to stop antibiotics after today's dose and monitor Pulm recs appreciated Mucomyst and hypertonic saline to thin secretion. c/w Flonase. Continue with DuoNebs as needed, Tessalon Perle. Leukocytosis 2/2 underlying malignancy. Continue home prednisone 5 mg daily. Continue with incentive spirometry and flutter valve. Monitor Wean down oxygen as tolerated. Swallowing difficulty/dysphagia: Right cerebellar stroke Patient started having swallowing difficulty since 08/16 evening, CT head and neck reviewed MRI brain w/ tiny rt cerebellar stroke GI evaluation noted, S/p EGD scope 08/19 - without cause of dysphagia. 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 Patient to follow-up with neurology upon discharge. HbA1c is 6.3. Hence prediabetes TTE from 08/12/23 reviewed PT/OT eval. Rehab recommended Recent Infection due to COVID-19: COVID-19 infection noted initially on 05 August 2023. COVID remains positive on admission Off isolation. Elevated troponin: Likely demand ischemia from hypoxemia secondary to acute illness. Troponin elevated at 457, down trended. Patient with no chest pain. EKG with sinus tachycardia. Echo with EF of 60 to 65%, LV wall motion normal, grade 1 medical dysfunction. Continue telemetry. Chronic lymphocytic leukemia: Has chronic lymphocytic leukemia On admission, WBC: 159 (was 129 on 07/15/23), Hgb: 11, Plt: 59 (at baseline) Receives IVIG monthly. Last was 07/16/[address] Vasquez Other chronic medical conditions: Continue with/resume home meds as and when able Chronic anemia/chronic thrombocytopenia/hypogammaglobulinemia - Stable. Anxiety and depression: Home citalopram was held. Resume home citalopram c/w home Lorazepam. Osteoarthritis: Continue home prednisone. DVT prophylaxis: SCDs, re- thrombocytopenia PT/OT recommending rehab., CM to assist with DC planning. Conditional Code - would like trial of CPR/chest compression and defibrillation. Does not want advanced airway or intubation Follows with Dr Estrada for routine care I spent a total of 55 minutes coordinating, documenting and providing care for this patient excluding time spent in performance of separately billed services Admission and Anticipated Discharge Date Admission Date: August 11, 2023 Subjective Patient seen and examined Patient has some hearing deficits. Though she hears conversations, she also uses an maryanne on her ipad to augment transcribing conversations to written text. She stated she has been using it for a while after her son installed it for her. She reports dysphagia, productive cough Denied any chest pain, SOB, nausea, vomiting, abd pain, diarrhea, dysuria, freq, urgency, headache, dizziness Reports she slept well and feels better today than yesterday Physical Exam Constitutional: + well hydrated; no acute distress Chronically ill looking elderly woman Eyes: PERRL, conjunctivae normal, anicteric sclerae ENMT: NGT in situ Respiratory: normal respiratory effort, lungs clear to auscultation Cardiovascular: Rate/Rhythm: regular rate and regular rhythm S1 S2 Gastrointestinal (Abdomen): normal bowel sounds, soft, nontender, no hepatosplenomegaly Musculoskeletal: No pedal edema. Chronic hyperpigmentation changes on LE. Some bruises on forearm Neurologic: PERRL, EOMI, accommodation nl, no face palsy, no dysarthria Psychiatric: A+Ox3, euthymic affect Results & Data Results & Data Vital Signs (Past 12 Hours) Vital Signs Temp Pulse Pulse Resp BP Pulse Ox O2 Del Method 08/20/23 07:25 36.4 C L 108 H 20 161/74 H 99 Nasal Cannula 08/20/23 07:22 102 H 08/20/23 07:22 107 H 18 96 Nasal Cannula 08/20/23 03:28 36.5 C 104 H 18 165/78 H 96 Room Air 08/19/23 23:41 106 H 08/19/23 22:48 36.4 C L 102 H 15 162/80 H 95 Room Air 08/19/23 22:36 Nasal Cannula 08/19/23 22:34 Nasal Cannula O2 Flow Rate 08/20/23 07:25 2 08/20/23 07:22 08/20/23 07:22 3 08/20/23 03:28 08/19/23 23:41 08/19/23 22:48 08/19/23 22:36 2 08/19/23 22:34 2 Laboratory Results Abnormal lab results 08/19/23 08/20/23 Range/Units 12:25 07:19 WBC 145.53 H* (4.8-10.8) K/ul RBC 2.84 L (4.20-5.40) M/uL Hgb 9.2 L (12.0-16.0) g/dl Hct 31.3 L (37.0-47.0) % MCV 110.2 H (80.0-100.0) fL MCHC 29.4 L (32.0-36.0) g/dL RDW Std Deviation 57.3 H (36.4-46.3) fL RDW Coeff of Riley 14.7 H (11.5-14.5) % Plt Count 41 L (130-400) K/uL D-Dimer 1940 H* (0-500) ug/L FEU Chloride 108 H (98-107) mmol/L BUN 32 H (6-23) mg/dl BUN/Creatinine Ratio 51.6 H (10-20) Glucose 102 H (70-99(Fasting)) mg/dl Hemoglobin A1c 6.3 H (4.5-5.6) % B-Natriuretic Peptide 175 H (0-100) pg/ml Triglycerides 158 H (0-150) mg/dl VLDL Cholesterol, Calc 32 H (0-30) mg/dl Cholesterol/HDL Ratio 6.4 H (0-5) Procalcitonin 0.78 H (0-0.5) ng/ml
--- NOTE | 2023-08-20 11:20 | Communication Note ---
Date of Service: August 20, 2023 MRI brain reviewed, confirming right cerebellar area of infarct. Recommend DAPT for at least 3 weeks Recommend high dose statin therapy indefinitely if tolerated Patient has undergone recent echocardiogram revealing no evidence of reduced EF, cardiac thrombus or aneurysm
[2023-08-21 08:25] LABS: BUN Creatinine Ratio 54.7 (10-20); Calcium 8.3 mg/dl (8.6-10.3); Creatinine Clr Calc Pharmacy 44.4 ml/min; Est GFR (African American) 94.3 ml/min; Est GFR (Non-African American) 81.4 ml/min; Potassium 4.7 mmol/L (3.5-5.1)
[2023-08-21 08:58] LABS: Hematocrit (blood only) 28.7 % (37.0-47.0); Hemoglobin 8.6 g/dl (12.0-16.0); Mean Corpuscular Hemoglobin 32.7 pg (25.0-34.0); Mean Corpuscular Volume 109.1 fL (80.0-100.0); Platelet Count 39 K/uL (130-400); RDW Coefficient of Variation 14.8 % (11.5-14.5); RDW Standard Deviation 56.9 fL (36.4-46.3); Red Blood Count 2.63 M/uL (4.20-5.40); White Blood Count 150.06 K/ul (4.8-10.8)
--- NOTE | 2023-08-21 10:42 | Hospitalist Progress Note ---
Date of Service August 21, 2023 Assessment & Plan (1) Pneumonia: Plan 87-year-old female with PMH of CLL, HTN, anxiety, depression, osteoarthritis, gout, GERD presented to the ER with complaint of cough & shortness of breath. Recently diagnosed of COVID 19 infection on 08/05/2023 with unremarkable CXR. Symptoms progressed with worsening cough and SOB and continued fevers. She is being managed for the following: Recent infection with COVID-19 virus Likely superimposed bacterial pneumonia Pneumonia in an immunocompromised patient Presented with increasing shortness of breath and cough, recent history of infection with COVID-19 virus. In ER T: 37C, P: 110, 135/72, R: 25, 93% on RA. On admission, WBC: 159 (was 129 on 07/15/23). Lactate: 1.1, procalcitonin: 20. MRSA positive. CXR: Right upper lobe pneumonia. Mild right hilar prominence may represent underlying lymphadenopathy. Mild retrocardiac densities may represent atelectasis versus pneumonitis. In ER, she got IVF, cefepime, vancomycin Chest CT reviewed. Noted Right lung multifocal consolidation, small pleural effusion (R>L) Nocturnal pulse ox 08/14 reviewed. Pansinus disease noted on CT head Infectious workup negative so far Procal trended down to 0.78 Repeat CXR 08/17 w/ some pul vascular congestion, given iv lasix 20 mg 08/17, will hold on any further diuresis as patient is NPO. Transitioned Zosyn 08/12 and Doxy 08/12 to Augmentin 08/16 and linezolid 08/16 per pulm recommendation. But again changed back to unasyn and iv doxy on 08/17 given NPO status d/t swallowing issues Antibiotics stopped. Monitor Pulm recs appreciated Mucomyst and hypertonic saline to thin secretion. c/w Flonase. Continue with DuoNebs as needed, Tessalon Perle. Leukocytosis 2/2 underlying malignancy. Continue home prednisone 5 mg daily. Continue with incentive spirometry and flutter valve. Monitor Wean oxygen as tolerated. Swallowing difficulty/dysphagia: Right cerebellar stroke Patient started having swallowing difficulty since 08/16 evening, CT head and neck reviewed MRI brain w/ tiny rt cerebellar stroke GI evaluation noted, S/p EGD scope 08/19 - without cause of dysphagia. SECOND FLOOR OPERATOR evaluation noted Continue NGT feeding for now Patient stated she does not want PEG for now and was hoping her swallowing will improve and NGT can be taken out I explained that may take sometime and PEG can be temporary in that situation Will monitor progress with SECOND FLOOR OPERATOR for now. SECOND FLOOR OPERATOR plans to repeat videoswallow later Neurology evaluated Patient started on DAPT. Neurology recommends this for atleast 3 weeks Continue high dose statin started this admission Patient to follow-up with neurology upon discharge. HbA1c is 6.3. Hence prediabetes TTE from 08/12/23 reviewed PT/OT eval. Rehab recommended Recent Infection due to COVID-19: COVID-19 infection noted initially on 05 August 2023. COVID remains positive on admission Off isolation. Elevated troponin: Likely demand ischemia from hypoxemia secondary to acute illness. Troponin elevated at 457, down trended. Patient with no chest pain. EKG with sinus tachycardia. Echo with EF of 60 to 65%, LV wall motion normal, grade 1 medical dysfunction. Continue telemetry. Chronic lymphocytic leukemia: Has chronic lymphocytic leukemia On admission, WBC: 159 (was 129 on 07/15/23), Hgb: 11, Plt: 59 (at baseline) Receives IVIG monthly. Last was 07/16/[address] Vasquez Other chronic medical conditions: Continue with/resume home meds as and when able Chronic anemia/chronic thrombocytopenia/hypogammaglobulinemia - Stable. Anxiety and depression: Home citalopram was held. Resume home citalopram c/w home Lorazepam. Osteoarthritis: Continue home prednisone. DVT prophylaxis: SCDs, re- thrombocytopenia PT/OT recommending rehab., CM to assist with DC planning. Conditional Code - would like trial of CPR/chest compression and defibrillation. Does not want advanced airway or intubation Follows with Dr Estrada for routine care I spent a total of 50 minutes coordinating, documenting and providing care for this patient excluding time spent in performance of separately billed services Admission and Anticipated Discharge Date Admission Date: August 11, 2023 Subjective Patient seen and examined No new complaints Still has dysphagia, productive cough Denied any chest pain, SOB, nausea, vomiting, abd pain, diarrhea, dysuria, freq, urgency, headache, dizziness Chronic hearing deficit Reports generalized weakness after walking yesterday Physical Exam Constitutional: + well hydrated; no acute distress Eyes: PERRL, conjunctivae normal, anicteric sclerae ENMT: NGT in situ Respiratory: normal respiratory effort, lungs clear to auscultation Cardiovascular: Rate/Rhythm: regular rate and regular rhythm S1 S2 Gastrointestinal (Abdomen): normal bowel sounds, soft, nontender, no hepatosplenomegaly Musculoskeletal: Some bruises/ecchymoses on arms. Chronic hyperpigmentation changes on LE. No pedal edema Neurologic: PERRL, EOMI, accommodation normal. No focal deficits in power. No dysarthria Psychiatric: A+Ox3, euthymic affect Results & Data Results & Data Vital Signs (Past 12 Hours) Vital Signs Temp Pulse Pulse Resp BP BP Pulse Ox 08/21/23 08:00 08/21/23 07:34 36.5 C 87 18 152/80 H 98 08/21/23 07:31 92 H 18 96 08/21/23 07:00 85 08/21/23 04:06 36.6 C 95 H 16 163/77 H 97 08/21/23 00:05 91 H O2 Del Method O2 Flow Rate 08/21/23 08:00 Room Air 08/21/23 07:34 Room Air 08/21/23 07:31 Room Air 08/21/23 07:00 08/21/23 04:06 Nasal Cannula 2 08/21/23 00:05 Laboratory Results Abnormal lab results 08/21/23 08/21/23 Range/Units 07:21 08:36 WBC 150.06 H* (4.8-10.8) K/ul RBC 2.63 L (4.20-5.40) M/uL Hgb 8.6 L (12.0-16.0) g/dl Hct 28.7 L (37.0-47.0) % MCV 109.1 H (80.0-100.0) fL MCHC 30.0 L (32.0-36.0) g/dL RDW Std Deviation 56.9 H (36.4-46.3) fL RDW Coeff of Riley 14.8 H (11.5-14.5) % Plt Count 39 L (130-400) K/uL Chloride 108 H (98-107) mmol/L BUN 35 H (6-23) mg/dl BUN/Creatinine Ratio 54.7 H (10-20) Glucose 140 H (70-99(Fasting)) mg/dl Calcium 8.3 L (8.6-10.3) mg/dl
--- NOTE | 2023-08-22 09:23 | Hospitalist Progress Note ---
Date of Service August 22, 2023 Assessment & Plan (1) Pneumonia: Plan 87-year-old female with PMH of CLL, HTN, anxiety, depression, osteoarthritis, gout, GERD presented to the ER with complaint of cough & shortness of breath. Recently diagnosed of COVID 19 infection on 08/05/2023 with unremarkable CXR. Symptoms progressed with worsening cough and SOB and continued fevers. She is being managed for the following: Recent infection with COVID-19 virus Likely superimposed bacterial pneumonia Pneumonia in an immunocompromised patient Presented with increasing shortness of breath and cough, recent history of infection with COVID-19 virus. In ER T: 37C, P: 110, 135/72, R: 25, 93% on RA. On admission, WBC: 159 (was 129 on 07/15/23). Lactate: 1.1, procalcitonin: 20. MRSA positive. CXR: Right upper lobe pneumonia. Mild right hilar prominence may represent underlying lymphadenopathy. Mild retrocardiac densities may represent atelectasis versus pneumonitis. In ER, she got IVF, cefepime, vancomycin Chest CT reviewed. Noted Right lung multifocal consolidation, small pleural effusion (R>L) Nocturnal pulse ox 08/14 reviewed. Pansinus disease noted on CT head Infectious workup negative so far Procal trended down to 0.78 Repeat CXR 08/17 w/ some pul vascular congestion, given iv lasix 20 mg 08/17, will hold on any further diuresis as patient is NPO. Transitioned Zosyn 08/12 and Doxy 08/12 to Augmentin 08/16 and linezolid 08/16 per pulm recommendation. But again changed back to unasyn and iv doxy on 08/17 given NPO status d/t swallowing issues Completed antibiotics Pulm recs appreciated Mucomyst and hypertonic saline to thin secretion. c/w Flonase. Continue with DuoNebs as needed, Tessalon Perle. Leukocytosis 2/2 underlying malignancy. Continue home prednisone 5 mg daily. Continue with incentive spirometry and flutter valve. Monitor Oxygen has been weaned off Swallowing difficulty/dysphagia: Right cerebellar stroke Patient started having swallowing difficulty since 08/16 evening, CT head and neck reviewed MRI brain w/ tiny rt cerebellar stroke GI evaluation noted, S/p EGD scope 08/19 - without cause of dysphagia. ELEVATOR TENDER evaluation noted Continue NGT feeding for now Patient stated she does not want PEG for now and was hoping her swallowing will improve and NGT can be taken out ELEVATOR TENDER has been doing speech therapy with patient ELEVATOR TENDER plans to repeat videoswallow later to assess recovery Neurology evaluated Patient started on DAPT. Neurology recommends this for atleast 3 weeks Continue high dose statin started this admission Patient to follow-up with neurology upon discharge. HbA1c is 6.3. Hence prediabetes TTE from 08/12/23 reviewed PT/OT eval. Rehab recommended Recent Infection due to COVID-19: COVID-19 infection noted initially on 05 August 2023. COVID remains positive on admission Off isolation. Elevated troponin: Likely demand ischemia from hypoxemia secondary to acute illness. Troponin elevated at 457, down trended. Patient with no chest pain. EKG with sinus tachycardia. Echo with EF of 60 to 65%, LV wall motion normal, grade 1 medical dysfunction. Continue telemetry. Chronic lymphocytic leukemia: Has chronic lymphocytic leukemia On admission, WBC: 159 (was 129 on 07/15/23), Hgb: 11, Plt: 59 (at baseline) Receives IVIG monthly. Last was 07/16/[address] Vasquez Other chronic medical conditions: Continue with/resume home meds as and when able Chronic anemia/chronic thrombocytopenia/hypogammaglobulinemia - Stable. Anxiety and depression: Home citalopram was held. Resume home citalopram c/w home Lorazepam. Osteoarthritis: Continue home prednisone. DVT prophylaxis: SCDs, re- thrombocytopenia PT/OT recommending rehab., CM to assist with DC planning. Conditional Code - would like trial of CPR/chest compression and defibrillation. Does not want advanced airway or intubation Follows with Dr Estrada for routine care Discussed with ELEVATOR TENDER Doing exercises and freq eval by ELEVATOR TENDER to manage dysphagia Per ELEVATOR TENDER, she is improving slowly but still has some aspiration and not at level to start oral feeding ELEVATOR TENDER planning reeval after the weekend, get another study. This will help determine next step for enteral feeding prior to being discharged to rehab Continue PT/OT while inpt I spent a total of 50 minutes coordinating, documenting and providing care for this patient excluding time spent in performance of separately billed services Admission and Anticipated Discharge Date Admission Date: August 11, 2023 Subjective Patient seen and examined No new complaints Still has dysphagia. Has been working with ELEVATOR TENDER Reports some cough Denied any chest pain, SOB, nausea, vomiting, abd pain, dysuria, freq, urgency, headache, dizziness Reported loose stool today Chronic hearing deficit Physical Exam Constitutional: + well hydrated; no acute distress Eyes: PERRL, conjunctivae normal, anicteric sclerae ENMT: external ear and nose normal, oropharynx normal NGT in situ +Hearing deficits Respiratory: normal respiratory effort, lungs clear to auscultation Cardiovascular: Rate/Rhythm: regular rate and regular rhythm S1 S2 Gastrointestinal (Abdomen): normal bowel sounds, soft, nontender, no hepatosplenomegaly Musculoskeletal: No pedal edema Some ecchymoses/petechia Neurologic: PERRL, EOMI, accommodation nl, no face palsy, no dysarthria Psychiatric: A+Ox3, euthymic affect Results & Data Results & Data Vital Signs (Past 12 Hours) Vital Signs Temp Pulse Pulse Resp BP BP Pulse Ox 08/22/23 08:20 08/22/23 08:01 36.7 C 100 H 17 111/77 98 08/22/23 07:00 84 08/22/23 06:03 90 19 98 08/22/23 03:44 36.6 C 100 H 16 165/74 H 96 08/21/23 22:00 93 H O2 Del Method O2 Flow Rate 08/22/23 08:20 Room Air 08/22/23 08:01 Room Air 08/22/23 07:00 08/22/23 06:03 Nasal Cannula 2 08/22/23 03:44 Nasal Cannula 2 08/21/23 22:00 Laboratory Results Abnormal lab results 08/22/23 Range/Units 09:50 WBC 155.72 H* (4.8-10.8) K/ul RBC 2.84 L (4.20-5.40) M/uL Hgb 9.2 L (12.0-16.0) g/dl Hct 31.6 L (37.0-47.0) % MCV 111.3 H (80.0-100.0) fL MCHC 29.1 L (32.0-36.0) g/dL RDW Std Deviation 57.6 H (36.4-46.3) fL RDW Coeff of Riley 14.9 H (11.5-14.5) % Plt Count 41 L (130-400) K/uL Potassium 5.5 H (3.5-5.1) mmol/L BUN 32 H (6-23) mg/dl BUN/Creatinine Ratio 50.0 H (10-20) Glucose 162 H (70-99(Fasting)) mg/dl
[2023-08-22 10:30] LABS: Hematocrit (blood only) 31.6 % (37.0-47.0); Hemoglobin 9.2 g/dl (12.0-16.0); Mean Corpuscular Hemoglobin 32.4 pg (25.0-34.0); Mean Corpuscular Hgb Conc 29.1 g/dL (32.0-36.0); Mean Corpuscular Volume 111.3 fL (80.0-100.0); Mean Platelet Volume 11.5 fL (9.4-12.4); Platelet Count 41 K/uL (130-400); RDW Coefficient of Variation 14.9 % (11.5-14.5); RDW Standard Deviation 57.6 fL (36.4-46.3); Red Blood Count 2.84 M/uL (4.20-5.40); White Blood Count 155.72 K/ul (4.8-10.8)
[2023-08-22 10:48] LABS: Calcium 8.7 mg/dl (8.6-10.3); Creatinine Clr Calc Pharmacy 44.4 ml/min; Est GFR (African American) 94.3 ml/min; Est GFR (Non-African American) 81.4 ml/min; Potassium 5.5 mmol/L (3.5-5.1)
[2023-08-23 08:54] LABS: Hematocrit (blood only) 32.5 % (37.0-47.0); Hemoglobin 9.5 g/dl (12.0-16.0); Mean Corpuscular Hemoglobin 32.5 pg (25.0-34.0); Mean Corpuscular Hgb Conc 29.2 g/dL (32.0-36.0); Mean Corpuscular Volume 111.3 fL (80.0-100.0); Mean Platelet Volume 10.8 fL (9.4-12.4); Platelet Count 52 K/uL (130-400); RDW Coefficient of Variation 16.7 % (11.5-14.5); RDW Standard Deviation 58.7 fL (36.4-46.3); Red Blood Count 2.92 M/uL (4.20-5.40); White Blood Count 212.97 K/ul (4.8-10.8)
[2023-08-23 08:57] LABS: BUN Creatinine Ratio 42.4 (10-20); Calcium 8.7 mg/dl (8.6-10.3); Creatinine Clr Calc Pharmacy 43.7 ml/min; Est GFR (African American) 93.4 ml/min; Est GFR (Non-African American) 80.6 ml/min; Potassium 5.8 mmol/L (3.5-5.1)
--- NOTE | 2023-08-23 11:52 | Hospitalist Progress Note ---
Date of Service August 23, 2023 Assessment & Plan (1) Pneumonia: Plan 87-year-old female with PMH of CLL, HTN, anxiety, depression, osteoarthritis, gout, GERD presented to the ER with complaint of cough & shortness of breath. Recently diagnosed of COVID 19 infection on 08/05/2023 with unremarkable CXR. Symptoms progressed with worsening cough and SOB and continued fevers. She is being managed for the following: Recent infection with COVID-19 virus Likely superimposed bacterial pneumonia Pneumonia in an immunocompromised patient Presented with increasing shortness of breath and cough, recent history of infection with COVID-19 virus. In ER T: 37C, P: 110, 135/72, R: 25, 93% on RA. On admission, WBC: 159 (was 129 on 07/15/23). Lactate: 1.1, procalcitonin: 20. MRSA positive. CXR: Right upper lobe pneumonia. Mild right hilar prominence may represent underlying lymphadenopathy. Mild retrocardiac densities may represent atelectasis versus pneumonitis. In ER, she got IVF, cefepime, vancomycin Chest CT reviewed. Noted Right lung multifocal consolidation, small pleural effusion (R>L) Nocturnal pulse ox 08/14 reviewed. Pansinus disease noted on CT head Infectious workup negative so far Procal trended down to 0.78 Repeat CXR 08/17 w/ some pul vascular congestion, given iv lasix 20 mg 08/17, will hold on any further diuresis as patient is NPO. Transitioned Zosyn 08/12 and Doxy 08/12 to Augmentin 08/16 and linezolid 08/16 per pulm recommendation. But again changed back to unasyn and iv doxy on 08/17 given NPO status d/t swallowing issues Completed antibiotics Pulm recs appreciated Mucomyst and hypertonic saline to thin secretion. c/w Flonase. Continue with DuoNebs as needed, Tessalon Perle. Leukocytosis 2/2 underlying malignancy. Continue home prednisone 5 mg daily. Continue with incentive spirometry and flutter valve. Monitor. WBC >200 today Oxygen has been weaned off Swallowing difficulty/dysphagia: Right cerebellar stroke Patient started having swallowing difficulty since 08/16 evening, CT head and neck reviewed MRI brain w/ tiny rt cerebellar stroke GI evaluation noted, S/p EGD scope 08/19 - without cause of dysphagia. SPECIAL WARFARE BOAT OPERATOR evaluation noted Continue NGT feeding for now Patient stated she does not want PEG for now and was hoping her swallowing will improve and NGT can be taken out SPECIAL WARFARE BOAT OPERATOR has been doing speech therapy with patient SPECIAL WARFARE BOAT OPERATOR plans to repeat videoswallow later to assess recovery Neurology evaluated Patient started on DAPT. Neurology recommends this for atleast 3 weeks Continue high dose statin started this admission Patient to follow-up with neurology upon discharge. HbA1c is 6.3. Hence prediabetes TTE from 08/12/23 reviewed PT/OT eval. Rehab recommended Hyperkalemia K is trending up despite iv lasix earlier Upto 6.8 this evening Hyperkalemia orders put in with some doses of lokelma, IV calcium gluconate, another dose of lasix and nephro c/s Discussed with pharm about changing to a low potassium tube feed Pharm noted the lowest potassium tube feed, lower than current one is Nutren 2 TF changed Will discuss with [employer] once available Monitor K closely Continue tele monitor Recent Infection due to COVID-19: COVID-19 infection noted initially on 05 August 2023. COVID remains positive on admission Off isolation. Elevated troponin: Likely demand ischemia from hypoxemia secondary to acute illness. Troponin elevated at 457, down trended. Patient with no chest pain. EKG with sinus tachycardia. Echo with EF of 60 to 65%, LV wall motion normal, grade 1 medical dysfunction. Continue telemetry. Chronic lymphocytic leukemia: Has chronic lymphocytic leukemia On admission, WBC: 159 (was 129 on 07/15/23), Hgb: 11, Plt: 59 (at baseline) Receives IVIG monthly. Last was 07/16/[address] Vasquez Other chronic medical conditions: Continue with/resume home meds as and when able Chronic anemia/chronic thrombocytopenia/hypogammaglobulinemia - Stable. Anxiety and depression: Home citalopram was held. Resume home citalopram c/w home Lorazepam. Osteoarthritis: Continue home prednisone. DVT prophylaxis: SCDs, re- thrombocytopenia PT/OT recommending rehab., CM to assist with DC planning. Conditional Code - would like trial of CPR/chest compression and defibrillation. Does not want advanced airway or intubation Follows with Dr Estrada for routine care SPECIAL WARFARE BOAT OPERATOR planning reeval after the weekend, get another study. This will help determine next step for enteral feeding prior to being discharged to rehab Continue PT/OT while inpt I spent a total of 50 minutes coordinating, documenting and providing care for this patient excluding time spent in performance of separately billed services Admission and Anticipated Discharge Date Admission Date: August 11, 2023 Subjective Patient seen and examined No new complaints Still has dysphagia. Has been working with SPECIAL WARFARE BOAT OPERATOR Reports some cough Reported one episode of loose stool today Denied any other complaints Chronic hearing deficit Physical Exam Constitutional: + well hydrated; no acute distress Eyes: PERRL, conjunctivae normal, anicteric sclerae ENMT: external ear and nose normal, oropharynx normal NGT in situ Hearing deficits Respiratory: normal respiratory effort, lungs clear to auscultation Cardiovascular: Rate/Rhythm: regular rate and regular rhythm S1 S2 Gastrointestinal (Abdomen): normal bowel sounds, soft, nontender, no hepatosplenomegaly Musculoskeletal: No pedal edema Petechiae/ecchymoses Neurologic: PERRL, EOMI, accommodation nl, no face palsy, no dysarthria Psychiatric: A+Ox3, euthymic affect Results & Data Results & Data Vital Signs (Past 12 Hours) Vital Signs Temp Pulse Pulse Resp BP Pulse Ox O2 Del Method 08/23/23 08:17 83 08/23/23 07:23 98 H 18 95 Nasal Cannula 08/23/23 07:12 36.6 C 93 H 17 153/71 H 94 Nasal Cannula 08/23/23 03:46 36.6 C 92 H 16 148/88 H 98 Nasal Cannula 08/23/23 01:23 Nasal Cannula O2 Flow Rate 08/23/23 08:17 08/23/23 07:23 3 08/23/23 07:12 3 08/23/23 03:46 2 08/23/23 01:23 3 Laboratory Results Abnormal lab results 08/23/23 Range/Units 07:43 WBC 212.97 H* (4.8-10.8) K/ul RBC 2.92 L (4.20-5.40) M/uL Hgb 9.5 L (12.0-16.0) g/dl Hct 32.5 L (37.0-47.0) % MCV 111.3 H (80.0-100.0) fL MCHC 29.2 L (32.0-36.0) g/dL RDW Std Deviation 58.7 H (36.4-46.3) fL RDW Coeff of Riley 16.7 H (11.5-14.5) % Plt Count 52 L (130-400) K/uL Sodium 135 L (136-145) mmol/L Potassium 5.8 H (3.5-5.1) mmol/L BUN 28 H (6-23) mg/dl BUN/Creatinine Ratio 42.4 H (10-20) Glucose 125 H (70-99(Fasting)) mg/dl
[2023-08-23] MEDS: FUROSEMIDE INJ 20 MG/2 ML VIAL IV ONE (13:16)
[2023-08-23 16:41] LABS: BUN Creatinine Ratio 44.9 (10-20); Est GFR (African American) 80.3 ml/min; Est GFR (Non-African American) 69.3 ml/min; Potassium 6.8 mmol/L (3.5-5.1)
[2023-08-23] MEDS ORDERED: STAT IV/IM STA ×2 (16:45→20:42)
[2023-08-23] MEDS: FUROSEMIDE INJ 20 MG/2 ML VIAL IV STA (17:12)
[2023-08-23] MEDS: INSULIN HUMAN REGULAR PER UNIT 10 UNITS in SYRINGE 9.9 ML IV STA (17:12)
[2023-08-23] MEDS: CALCIUM GLUCONATE 10% 1,000 MG in SODIUM CHLOR 0.9% MINI-B 50 ML IV ONE ×2 (17:12→21:13)
[2023-08-23] MEDS: DEXTROSE 50% 50 ML SYRINGE IV STA ×2 (17:12→21:13)
[2023-08-23] MEDS ORDERED: NUTREN LIQD 2.0 1,000 ML BAG NG SCH (18:15)
[2023-08-23 20:25] LABS: Albumin Globulin Ratio 1.3 (0.9-2); Albumin Level 3.3 gm/dl (3.4-5.0); BUN Creatinine Ratio 44.9 (10-20); Bilirubin,Total 0.7 mg/dl (0.2-1.0); Calcium 9.4 mg/dl (8.6-10.3); Est GFR (African American) 80.3 ml/min; Est GFR (Non-African American) 69.3 ml/min; Globulin 2.5 gm/dl (2.5-4.0); Potassium 6.2 mmol/L (3.5-5.1); Total Protein 5.8 gm/dl (6.0-8.3)
[2023-08-23] MEDS: SODIUM ZIRCONIUM CYCLOSILICATE 10 GM PACKET NG SCH (20:27)
[2023-08-23] MEDS: INSULIN HUMAN REGULAR PER UNIT 10 UNITS in SYRINGE 9.9 ML IV ONE (21:13)
[2023-08-24 07:30] LABS: Hematocrit (blood only) 31.3 % (37.0-47.0); Hemoglobin 9.2 g/dl (12.0-16.0); Mean Corpuscular Hemoglobin 31.9 pg (25.0-34.0); Mean Corpuscular Hgb Conc 29.4 g/dL (32.0-36.0); Mean Corpuscular Volume 108.7 fL (80.0-100.0); Mean Platelet Volume 10.7 fL (9.4-12.4); Platelet Count 52 K/uL (130-400); RDW Coefficient of Variation 15.9 % (11.5-14.5); RDW Standard Deviation 57.4 fL (36.4-46.3); Red Blood Count 2.88 M/uL (4.20-5.40)
[2023-08-24 07:43] LABS: Calcium 9.1 mg/dl (8.6-10.3); Potassium 4.9 mmol/L (3.5-5.1)
[2023-08-24 07:51] LABS: BUN Creatinine Ratio 47.3 (10-20); Creatinine Clr Calc Pharmacy 39.3 ml/min; Est GFR (African American) 85.6 ml/min; Est GFR (Non-African American) 73.9 ml/min
--- NOTE | 2023-08-24 11:26 | Nephrology Consultation ---
Date of Consultation August 24, 2023 Assessment & Plan (1) Acute hyperkalemia: Patient with hypokalemia due to high potassium load from the Fibersource tube feeds. Potassium was 6.8 yesterday. Patient received Lokelma and IV Lasix. Tube feeds have been changed to Nutren 2. Potassium is downtrending. No indication for dialysis. -No need for further Lasix as patient appears intravascularly volume depleted -Continue Lokelma 10 g daily until potassium is less than 4.5 and stop. -Renal will sign off case. Please reconsult if potassium is high again History of Present Illness Reason for Consultation: Hyperkalemia Requesting Physician: Teodora Sanabria MD Attending Physician: Teodora Sanabria MD History of Present Illness 87-year-old female being seen for hyperkalemia. PMH of CLL, HTN, anxiety, depression, osteoarthritis, gout, GERD presented to the ER with complaint of cough & shortness of breath. Recently diagnosed of COVID 19 infection on 08/05/2023. She is being treated for pneumonia with IV antibiotics. She was noted to have hyperkalemia of 6.8 yesterday. Patient is on tube feeds via NG tube. She was initially on Fibersource which is high in potassium. Tube feeds have now been changed to Nutren 2. Her potassium is downtrending. She denies any new complaints. Patient also received some IV Lasix yesterday. Allergies Allergy/AdvReac Type Severity Reaction Status Date / Time nitrofurantoin Allergy Unknown UNKNOWN Verified 08/19/23 08:26 PER [facility]G oxaprozin Allergy Unknown UNKNOWN Verified 08/19/23 08:26 PER [facility]G oxybutynin Allergy Unknown UNKNOWN Verified 08/19/23 08:26 PER GMG ciprofloxacin [From Cipro] AdvReac Intermediate Confusion Verified 08/19/23 08:26 melatonin AdvReac Intermediate OPPOSITE Verified 08/19/23 08:26 AFFECT mirabegron AdvReac Intermediate Hypertensio Verified 08/19/23 08:26 n Home Medications Medication Instructions Recorded Confirmed Type calcium citrate 250 mg 2 tab PO QAM 05/18/18 08/11/23 History calcium-vitamin D3 5 mcg (200 unit) tablet citalopram 10 mg tablet 10 mg PO QAM 05/18/18 08/11/23 History diclofenac sodium 1 % topical gel 2 g topical QID PRN Pain 02/20/21 08/11/23 History cyanocobalamin (vitamin B-12) 1,000 mcg IM MONTHLY 01/14/22 08/11/23 History 1,000 mcg/mL injection solution ammonium lactate 12 % topical cream 1 applic topical DIRECTED PRN 08/16/22 08/11/23 History dry skin,arms and legs prednisone 5 mg tablet 5 mg PO DAILY 01/18/23 08/11/23 History polyethylene glycol 3350 17 gram 17 g PO DAILY PRN constipation #30 01/19/23 08/11/23 Rx oral powder packet (Miralax) ea sennosides 8.6 mg-docusate sodium 1 tab PO QAM #30 tabs 01/19/23 08/11/23 Rx 50 mg tablet (Senokot-S) fluticasone propionate 50 2 spray intranasal DAILY 08/05/23 08/11/23 History mcg/actuation nasal spray,suspension loratadine 10 mg tablet (Claritin) 10 mg PO DAILY PRN Congestion 08/05/23 08/11/23 History lorazepam 0.5 mg tablet 0.5 mg PO HS 08/05/23 08/11/23 History multivitamin with minerals 1 tab PO DAILY 08/05/23 08/11/23 History sodium chloride 0.65 % nasal spray 1 spray intranasal DIRECTED PRN 08/05/23 08/11/23 History aerosol (Saline Nasal) Congestion benzonatate 100 mg capsule 100 mg PO TID PRN cough #30 caps 08/06/23 08/11/23 Rx Patient History Medical History (Updated 08/21/23 @ 00:09 by Khanh Bolivar) Anxiety and depression Symptomatic anemia Anemia REZA (generalized anxiety disorder) Fracture of spine Closed tibia fracture Closed rib fracture Stress reaction GERD (gastroesophageal reflux disease) Diverticulosis of colon Osteoporosis Osteoarthritis Hypogammaglobulinemia, acquired History of squamous cell carcinoma Dyslipidemia Chronic lymphocytic leukemia Surgical History History of orthopedic surgery Status post hysterectomy Family History Other Cancer Diabetes Heart disease Social History Smoking Status: Never smoker Second Hand Exposure: No; Do You Dip or Chew Tobacco: No; Hx Alcohol Use: Yes Alcohol type: beer Hx Substance Use: No Preferred Language: Yoruba Communication Ability: Effective Communication Ability Comment: uses i-pad Dopeman Required: No Beliefs That Will Affect Care: None marital status: / Current Living Situation: Alone Current Living Situation Comment: personal care givers Feels Safe at Home: Yes Assistive Devices: Cane, Stair Lift and Walker Review of Systems 2 Review of Systems: All other systems were reviewed and negative except as noted in HPI Physical Exam 2 Physical Exam: General exam: Appears comfortable, no acute distress HEENT: Pupils are equal and reactive to light Neck: No JVD, neck is supple trachea is midline Respiratory system: Clear breath sounds bilaterally. Gastrointestinal: Abdomen is soft, non distended, non tender, bowel sounds are present CVS: Regular rate and rhythm. No murmurs, rubs or gallops Musculoskeletal: No joint or muscle tenderness Extremities: Non tender, no edema, peripheral pulses are present Neuro: Oriented, no tremors, no focal neurological deficits Skin: No rashes Results & Data Vital Signs (Past 12 Hours) Vital Signs Temp Pulse Pulse Resp BP Pulse Ox O2 Del Method 08/24/23 08:00 36.7 C 112 H 17 118/76 94 Room Air 08/24/23 07:11 105 H 18 96 Room Air 08/24/23 06:59 102 H 08/24/23 02:53 36.9 C 117 H 20 146/80 H 96 Nasal Cannula O2 Flow Rate 08/24/23 08:00 08/24/23 07:11 08/24/23 06:59 08/24/23 02:53 2 Laboratory Results 08/24/23 06:17 08/23/23 08/24/23 19:45 06:17 WBC 210.20 H* RBC 2.88 L MCV 108.7 H MCH 31.9 MCHC 29.4 L RDW Std Deviation 57.4 H RDW Coeff of Riley 15.9 H Plt Count 52 L MPV 10.7 Albumin 3.3 L
[2023-08-24] MEDS: NOVASOURCE RENAL 2.0 CAL 1000ML BAG NG SCH (15:46)
--- NOTE | 2023-08-24 15:48 | Hospitalist Progress Note ---
Date of Service August 24, 2023 Assessment & Plan (1) Pneumonia: Plan 87-year-old female with PMH of CLL, HTN, anxiety, depression, osteoarthritis, gout, GERD presented to the ER with complaint of cough & shortness of breath. Recently diagnosed of COVID 19 infection on 08/05/2023 with unremarkable CXR. Symptoms progressed with worsening cough and SOB and continued fevers. She is being managed for the following: Recent infection with COVID-19 virus Likely superimposed bacterial pneumonia Pneumonia in an immunocompromised patient Presented with increasing shortness of breath and cough, recent history of infection with COVID-19 virus. In ER T: 37C, P: 110, 135/72, R: 25, 93% on RA. On admission, WBC: 159 (was 129 on 07/15/23). Lactate: 1.1, procalcitonin: 20. MRSA positive. CXR: Right upper lobe pneumonia. Mild right hilar prominence may represent underlying lymphadenopathy. Mild retrocardiac densities may represent atelectasis versus pneumonitis. In ER, she got IVF, cefepime, vancomycin Chest CT reviewed. Noted Right lung multifocal consolidation, small pleural effusion (R>L) Nocturnal pulse ox 08/14 reviewed. Pansinus disease noted on CT head Infectious workup negative so far Procal trended down to 0.78 Repeat CXR 08/17 w/ some pul vascular congestion, given iv lasix 20 mg 08/17, will hold on any further diuresis as patient is NPO. Transitioned Zosyn 08/12 and Doxy 08/12 to Augmentin 08/16 and linezolid 08/16 per pulm recommendation. But again changed back to unasyn and iv doxy on 08/17 given NPO status d/t swallowing issues Completed antibiotics Pulm recs appreciated Mucomyst and hypertonic saline to thin secretion. c/w Flonase. Continue with DuoNebs as needed, Tessalon Perle. Leukocytosis 2/2 underlying malignancy. Continue home prednisone 5 mg daily. Continue with incentive spirometry and flutter valve. Monitor. WBC >200 Oxygen has been weaned off Swallowing difficulty/dysphagia: Right cerebellar stroke Patient started having swallowing difficulty since 08/16 evening, CT head and neck reviewed MRI brain w/ tiny rt cerebellar stroke GI evaluation noted, S/p EGD scope 08/19 - without cause of dysphagia. WASHROOM ATTENDANT evaluation noted Continue NGT feeding for now Patient stated she does not want PEG for now and was hoping her swallowing will improve and NGT can be taken out WASHROOM ATTENDANT has been doing speech therapy with patient WASHROOM ATTENDANT plans to repeat videoswallow later to assess recovery Neurology evaluated Patient started on DAPT. Neurology recommends this for atleast 3 weeks Continue high dose statin started this admission Patient to follow-up with neurology upon discharge. HbA1c is 6.3. Hence prediabetes TTE from 08/12/23 reviewed PT/OT eval. Rehab recommended Hyperkalemia Due to tubefeeds Resolved Nephro recs noted Continue lokelma 10g daily until K is <4.5 then stop TF changed Recent Infection due to COVID-19: COVID-19 infection noted initially on 05 August 2023. COVID remains positive on admission Off isolation. Elevated troponin: Likely demand ischemia from hypoxemia secondary to acute illness. Troponin elevated at 457, down trended. Patient with no chest pain. EKG with sinus tachycardia. Echo with EF of 60 to 65%, LV wall motion normal, grade 1 medical dysfunction. Continue telemetry. Chronic lymphocytic leukemia: Has chronic lymphocytic leukemia On admission, WBC: 159 (was 129 on 07/15/23), Hgb: 11, Plt: 59 (at baseline) Receives IVIG monthly. Last was 07/16/[address] Vasquez Other chronic medical conditions: Continue with/resume home meds as and when able Chronic anemia/chronic thrombocytopenia/hypogammaglobulinemia - Stable. Anxiety and depression: Home citalopram was held. Resume home citalopram c/w home Lorazepam. Osteoarthritis: Continue home prednisone. DVT prophylaxis: SCDs, re- thrombocytopenia PT/OT recommending rehab., CM to assist with DC planning. Conditional Code - would like trial of CPR/chest compression and defibrillation. Does not want advanced airway or intubation Follows with Dr Estrada for routine care WASHROOM ATTENDANT planning reeval after the weekend, get another study. This will help determine next step for enteral feeding prior to being discharged to rehab Continue PT/OT while inpt I spent a total of 40 minutes coordinating, documenting and providing care for this patient excluding time spent in performance of separately billed services Admission and Anticipated Discharge Date Admission Date: August 11, 2023 Subjective Patient seen and examined No new complaints Still has dysphagia. Has been working with WASHROOM ATTENDANT Reports some cough No diarrhea today Denied any other complaints Chronic hearing deficit Physical Exam Constitutional: + well hydrated; no acute distress Eyes: PERRL, conjunctivae normal, anicteric sclerae ENMT: external ear and nose normal, oropharynx normal NGT in situ Respiratory: normal respiratory effort, lungs clear to auscultation Cardiovascular: Rate/Rhythm: regular rate and regular rhythm S1 S2 Gastrointestinal (Abdomen): normal bowel sounds, soft, nontender, no hepatosplenomegaly Musculoskeletal: No pedal edema Neurologic: PERRL, EOMI, accommodation nl, no face palsy, no dysarthria Psychiatric: A+Ox3, euthymic affect Results & Data Results & Data Vital Signs (Past 12 Hours) Vital Signs Temp Pulse Pulse Resp BP BP Pulse Ox 08/24/23 12:40 36.7 C 116 H 15 103/68 94 08/24/23 08:00 36.7 C 112 H 17 118/76 94 08/24/23 07:11 105 H 18 96 08/24/23 06:59 102 H O2 Del Method 08/24/23 12:40 Room Air 08/24/23 08:00 Room Air 08/24/23 07:11 Room Air 08/24/23 06:59 Laboratory Results Abnormal lab results 08/23/23 08/23/23 08/24/23 Range/Units 15:53 19:45 06:17 WBC 210.20 H* (4.8-10.8) K/ul RBC 2.88 L (4.20-5.40) M/uL Hgb 9.2 L (12.0-16.0) g/dl Hct 31.3 L (37.0-47.0) % MCV 108.7 H (80.0-100.0) fL MCHC 29.4 L (32.0-36.0) g/dL RDW Std Deviation 57.4 H (36.4-46.3) fL RDW Coeff of Riley 15.9 H (11.5-14.5) % Plt Count 52 L (130-400) K/uL Sodium 131 L 132 L 135 L (136-145) mmol/L Potassium 6.8 H* 6.2 H* (3.5-5.1) mmol/L BUN 35 H 35 H 35 H (6-23) mg/dl BUN/Creatinine Ratio 44.9 H 44.9 H 47.3 H (10-20) Glucose 183 H 111 H 138 H (70-99(Fasting)) mg/dl Total Protein 5.8 L (6.0-8.3) gm/dl Albumin 3.3 L (3.4-5.0) gm/dl
[2023-08-25 08:04] LABS: Hematocrit (blood only) 30.6 % (37.0-47.0); Mean Corpuscular Hemoglobin 32.8 pg (25.0-34.0); Mean Corpuscular Hgb Conc 29.4 g/dL (32.0-36.0); Mean Corpuscular Volume 111.7 fL (80.0-100.0); Mean Platelet Volume 10.5 fL (9.4-12.4); Nucleated RBC # (auto) 0.02 K/uL (0.00-0.12); Platelet Count 69 K/uL (130-400); RDW Coefficient of Variation 18.1 % (11.5-14.5); Red Blood Count 2.74 M/uL (4.20-5.40); White Blood Count 229.71 K/ul (4.8-10.8)
[2023-08-25 08:28] LABS: BUN Creatinine Ratio 46.2 (10-20); Calcium 8.6 mg/dl (8.6-10.3); Creatinine Clr Calc Pharmacy 37.1 ml/min; Est GFR (African American) 80.3 ml/min; Est GFR (Non-African American) 69.3 ml/min; Potassium 4.4 mmol/L (3.5-5.1)
--- NOTE | 2023-08-25 10:59 | Hospitalist Progress Note ---
Date of Service August 25, 2023 Assessment & Plan (1) Pneumonia: Plan 87-year-old female with PMH of CLL, HTN, anxiety, depression, osteoarthritis, gout, GERD presented to the ER with complaint of cough & shortness of breath. Recently diagnosed of COVID 19 infection on 08/05/2023 with unremarkable CXR. Symptoms progressed with worsening cough and SOB and continued fevers. She is being managed for the following: Recent infection with COVID-19 virus Likely superimposed bacterial pneumonia Pneumonia in an immunocompromised patient Presented with increasing shortness of breath and cough, recent history of infection with COVID-19 virus. In ER T: 37C, P: 110, 135/72, R: 25, 93% on RA. On admission, WBC: 159 (was 129 on 07/15/23). Lactate: 1.1, procalcitonin: 20. MRSA positive. CXR: Right upper lobe pneumonia. Mild right hilar prominence may represent underlying lymphadenopathy. Mild retrocardiac densities may represent atelectasis versus pneumonitis. In ER, she got IVF, cefepime, vancomycin Chest CT reviewed. Noted Right lung multifocal consolidation, small pleural effusion (R>L) Nocturnal pulse ox 08/14 reviewed. Pansinus disease noted on CT head Infectious workup negative so far Procal trended down to 0.78 Repeat CXR 08/17 w/ some pul vascular congestion, given iv lasix 20 mg 08/17, will hold on any further diuresis as patient is NPO. Transitioned Zosyn 08/12 and Doxy 08/12 to Augmentin 08/16 and linezolid 08/16 per pulm recommendation. But again changed back to unasyn and iv doxy on 08/17 given NPO status d/t swallowing issues Completed antibiotics Pulm recs appreciated Mucomyst and hypertonic saline to thin secretion. c/w Flonase. Continue with DuoNebs as needed, Tessalon Perle. Leukocytosis 2/2 underlying malignancy. Continue home prednisone 5 mg daily. Continue with incentive spirometry and flutter valve. Monitor. WBC >200 Swallowing difficulty/dysphagia: Right cerebellar stroke Patient started having swallowing difficulty since 08/16 evening, CT head and neck reviewed MRI brain w/ tiny rt cerebellar stroke Neurology evaluated Patient was started on DAPT. Neurology recommends this for atleast 3 weeks GI evaluation noted, S/p EGD scope 08/19 - without cause of dysphagia. SPORTS MEDICINE SPECIALIST evaluation noted Has been on TF via NGT Has been exercising with SPORTS MEDICINE SPECIALIST for some days. Still not able to swallow Discussed with GI Dr Wiley. Patient will need to be off plavix for 5 days prior to procedure I confirmed with Dr Herman (Neurologist). Ok to hold plavix for procedure. Continue Aspirin. Plavix held. Will resume post procedure Continue high dose statin started this admission Patient to follow-up with neurology upon discharge. HbA1c is 6.3. Hence prediabetes TTE from 08/12/23 reviewed PT/OT eval. Rehab recommended Hyperkalemia Due to tubefeeds Resolved Nephro recs noted Stop lokelma 10g nowl K is <4.5 TF has been changed Recent Infection due to COVID-19: COVID-19 infection noted initially on 05 August 2023. COVID remains positive on admission Off isolation. Elevated troponin: Likely demand ischemia from hypoxemia secondary to acute illness. Troponin elevated at 457, down trended. Patient with no chest pain. EKG with sinus tachycardia. Echo with EF of 60 to 65%, LV wall motion normal, grade 1 medical dysfunction. Continue telemetry. Chronic lymphocytic leukemia: Has chronic lymphocytic leukemia On admission, WBC: 159 (was 129 on 07/15/23), Hgb: 11, Plt: 59 (at baseline) Receives IVIG monthly. Last was 07/16/[address] Vasquez Other chronic medical conditions: Continue with/resume home meds as and when able Chronic anemia/chronic thrombocytopenia/hypogammaglobulinemia - Stable. Anxiety and depression: Home citalopram was held. Resume home citalopram c/w home Lorazepam. Osteoarthritis: Continue home prednisone. DVT prophylaxis: SCDs, re- thrombocytopenia PT/OT recommending rehab., CM to assist with DC planning. Conditional Code - would like trial of CPR/chest compression and defibrillation. Does not want advanced airway or intubation Follows with Dr Estrada for routine care SPORTS MEDICINE SPECIALIST planning reeval after the weekend, get another study. This will help determine next step for enteral feeding prior to being discharged to rehab Continue PT/OT while inpt I spent a total of 50 minutes coordinating, documenting and providing care for this patient excluding time spent in performance of separately billed services Admission and Anticipated Discharge Date Admission Date: August 11, 2023 Subjective Patient seen and examined Still has dysphagia. Reports some cough but mostly dry/unable to bring phlegm up Reports some irritation from NGT in throat Denied nausea, vomiting, diarrhea,abd pain Chronic hearing deficit Physical Exam Constitutional: + well hydrated; no acute distress Eyes: PERRL, conjunctivae normal, anicteric sclerae ENMT: external ear and nose normal, oropharynx normal NGT Respiratory: normal respiratory effort, lungs clear to auscultation Cardiovascular: Rate/Rhythm: regular rate and regular rhythm S1 S2 Gastrointestinal (Abdomen): normal bowel sounds, soft, nontender, no hepatosplenomegaly Musculoskeletal: No pedal edema Skin: Petechia/ecchymoses Neurologic: PERRL, EOMI, accommodation nl, no face palsy, no dysarthria Psychiatric: A+Ox3, euthymic affect Results & Data Results & Data Vital Signs (Past 12 Hours) Vital Signs Temp Pulse Pulse Resp BP BP Pulse Ox 08/25/23 10:29 36.9 C 112 H 18 130/67 97 08/25/23 07:58 107 H 22 98 08/25/23 07:47 08/25/23 07:34 36.7 C 111 H 18 133/75 97 08/25/23 07:15 99 H 08/25/23 02:59 36.6 C 107 H 18 122/67 97 08/24/23 23:34 105 H 08/24/23 23:04 36.7 C 109 H 16 127/68 97 O2 Del Method O2 Flow Rate 08/25/23 10:29 Nasal Cannula 3 08/25/23 07:58 Nasal Cannula 2 08/25/23 07:47 Nasal Cannula 2 08/25/23 07:34 Nasal Cannula 3 08/25/23 07:15 08/25/23 02:59 Nasal Cannula 08/24/23 23:34 08/24/23 23:04 Nasal Cannula 2
[2023-08-25] MEDS ORDERED: SODIUM ZIRCONIUM CYCLOSILICATE 10 GM PACKET PO SCH (11:00)
--- NOTE | 2023-08-25 15:40 | Communication Note ---
Date of Service: August 25, 2023 Case discussed with attending and with hospitalist service. We will need plavix held for a total of 5 days prior to PEG placement. She was recently started on DAPT for a total of 3 weeks given a recent right sided stroke. Tentative PEG Friday/Friday pending last dose and Plavix holding plan vs after she has completed her 3 weeks of DAPT. May continue tube feeds for now. Please update GI once decision on DAPT is solidified.
[2023-08-26 07:22] LABS: Hematocrit (blood only) 28.9 % (37.0-47.0); Hemoglobin 8.5 g/dl (12.0-16.0); Mean Corpuscular Hemoglobin 32.6 pg (25.0-34.0); Mean Corpuscular Hgb Conc 29.4 g/dL (32.0-36.0); Mean Corpuscular Volume 110.7 fL (80.0-100.0); Mean Platelet Volume 10.1 fL (9.4-12.4); Platelet Count 70 K/uL (130-400); RDW Coefficient of Variation 16.5 % (11.5-14.5); RDW Standard Deviation 59.3 fL (36.4-46.3); Red Blood Count 2.61 M/uL (4.20-5.40); White Blood Count 183.41 K/ul (4.8-10.8)
[2023-08-26 07:37] LABS: BUN Creatinine Ratio 49.4 (10-20); Calcium 8.6 mg/dl (8.6-10.3); Creatinine Clr Calc Pharmacy 37.2 ml/min; Est GFR (African American) 76.8 ml/min; Est GFR (Non-African American) 66.2 ml/min; Potassium 3.7 mmol/L (3.5-5.1)
--- NOTE | 2023-08-26 12:28 | Hospitalist Progress Note ---
Date of Service August 26, 2023 Assessment & Plan (1) Pneumonia: Plan 87-year-old female with PMH of CLL, HTN, anxiety, depression, osteoarthritis, gout, GERD presented to the ER with complaint of cough & shortness of breath. Recently diagnosed of COVID 19 infection on 08/05/2023 with unremarkable CXR. Symptoms progressed with worsening cough and SOB and continued fevers. She is being managed for the following: Recent infection with COVID-19 virus Likely superimposed bacterial pneumonia Pneumonia in an immunocompromised patient Presented with increasing shortness of breath and cough, recent history of infection with COVID-19 virus. In ER T: 37C, P: 110, 135/72, R: 25, 93% on RA. On admission, WBC: 159 (was 129 on 07/15/23). Lactate: 1.1, procalcitonin: 20. MRSA positive. CXR: Right upper lobe pneumonia. Mild right hilar prominence may represent underlying lymphadenopathy. Mild retrocardiac densities may represent atelectasis versus pneumonitis. In ER, she got IVF, cefepime, vancomycin Chest CT reviewed. Noted Right lung multifocal consolidation, small pleural effusion (R>L) Nocturnal pulse ox 08/14 reviewed. Pansinus disease noted on CT head Infectious workup negative so far Procal trended down to 0.78 Repeat CXR 08/17 w/ some pul vascular congestion, given iv lasix 20 mg 08/17, will hold on any further diuresis as patient is NPO. Transitioned Zosyn 08/12 and Doxy 08/12 to Augmentin 08/16 and linezolid 08/16 per pulm recommendation. But again changed back to unasyn and iv doxy on 08/17 given NPO status d/t swallowing issues Completed antibiotics Pulm recs appreciated Mucomyst and hypertonic saline to thin secretion Continue with DuoNebs as needed, Tesmonicaon Perle. Leukocytosis 2/2 underlying malignancy. Continue home prednisone 5 mg daily. Continue with incentive spirometry and flutter valve. Swallowing difficulty/dysphagia: Right cerebellar stroke Patient started having swallowing difficulty since 08/16 evening, CT head and neck reviewed MRI brain w/ tiny rt cerebellar stroke Neurology evaluated Patient was started on DAPT. Neurology recommends this for atleast 3 weeks GI evaluation noted, S/p EGD scope 08/19 - without cause of dysphagia. 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 Still not able to swallow On 08/25/23, I discussed with GI Dr Wiley. Patient will need to be off plavix for 5 days prior to procedure I confirmed with Dr Herman (Neurologist). Ok to hold plavix for procedure. Continue Aspirin. Plavix held. Will resume post procedure PEG planned for 08/29/23 Continue high dose statin started this admission Patient to follow-up with neurology upon discharge. HbA1c is 6.3. Hence prediabetes TTE from 08/12/23 reviewed PT/OT eval. Rehab recommended Hyperkalemia Due to tubefeeds Resolved Nephro recs noted TF was changed Recent Infection due to COVID-19: COVID-19 infection noted initially on 05 August 2023. COVID remains positive on admission Off isolation. Elevated troponin: Likely demand ischemia from hypoxemia secondary to acute illness. Troponin elevated at 457, down trended. Patient with no chest pain. EKG with sinus tachycardia. Echo with EF of 60 to 65%, LV wall motion normal, grade 1 medical dysfunction. Continue telemetry. Chronic lymphocytic leukemia: Has chronic lymphocytic leukemia On admission, WBC: 159 (was 129 on 07/15/23), Hgb: 11, Plt: 59 (at baseline) Receives IVIG monthly. Last was 07/16/[address] Vasquez Other chronic medical conditions: Continue with/resume home meds as and when able Chronic anemia/chronic thrombocytopenia/hypogammaglobulinemia - Stable. Anxiety and depression: Home citalopram was held. Resume home citalopram c/w home Lorazepam. Osteoarthritis: Continue home prednisone. DVT prophylaxis: SCDs, re- thrombocytopenia PT/OT recommending rehab., CM to assist with DC planning. Plan to dc to rehab after PEG placement Conditional Code - would like trial of CPR/chest compression and defibrillation. Does not want advanced airway or intubation Follows with Dr Estrada for routine care I spent a total of 40 minutes coordinating, documenting and providing care for this patient excluding time spent in performance of separately billed services Admission and Anticipated Discharge Date Admission Date: August 11, 2023 Subjective Patient seen and examined Still has difficulty swallowing Reports some cough Still reports some irritation from NGT in throat Denied nausea, vomiting, diarrhea,abd pain Chronic hearing deficit Physical Exam Constitutional: + well hydrated; no acute distress Eyes: PERRL, conjunctivae normal, anicteric sclerae ENMT: external ear and nose normal, oropharynx normal Respiratory: normal respiratory effort, lungs clear to auscultation Cardiovascular: Rate/Rhythm: regular rate and regular rhythm S1 S2 Gastrointestinal (Abdomen): normal bowel sounds, soft, nontender, no hepatosplenomegaly Musculoskeletal: No pedal edema Skin: Petechiae Neurologic: PERRL, EOMI, accommodation nl, no face palsy, no dysarthria Psychiatric: A+Ox3, euthymic affect Results & Data Results & Data Vital Signs (Past 12 Hours) Vital Signs Temp Pulse Pulse Resp BP Pulse Ox O2 Del Method 08/26/23 11:26 36.6 C 105 H 16 123/76 96 Nasal Cannula 08/26/23 09:48 Nasal Cannula 08/26/23 07:45 36.8 C 95 H 18 123/77 100 Nasal Cannula 08/26/23 07:27 86 08/26/23 07:11 99 H 18 95 Nasal Cannula 08/26/23 03:00 36.4 C L 101 H 21 129/69 96 Nasal Cannula O2 Flow Rate 08/26/23 11:26 08/26/23 09:48 2 08/26/23 07:45 2 08/26/23 07:27 08/26/23 07:11 2 08/26/23 03:00 Laboratory Results Abnormal lab results 08/26/23 Range/Units 06:27 WBC 183.41 H* (4.8-10.8) K/ul RBC 2.61 L (4.20-5.40) M/uL Hgb 8.5 L (12.0-16.0) g/dl Hct 28.9 L (37.0-47.0) % MCV 110.7 H (80.0-100.0) fL MCHC 29.4 L (32.0-36.0) g/dL RDW Std Deviation 59.3 H (36.4-46.3) fL RDW Coeff of Riley 16.5 H (11.5-14.5) % Plt Count 70 L (130-400) K/uL Carbon Dioxide 33 H (21-32) mmol/L BUN 40 H (6-23) mg/dl BUN/Creatinine Ratio 49.4 H (10-20) Glucose 135 H (70-99(Fasting)) mg/dl
[2023-08-26] MEDS: POLYETHYLENE (MIRALAX) 17 GM PACK PO PRN (21:07)
[2023-08-27 08:40] LABS: Hematocrit (blood only) 29.2 % (37.0-47.0); Hemoglobin 8.8 g/dl (12.0-16.0); Mean Corpuscular Hgb Conc 30.1 g/dL (32.0-36.0); Mean Corpuscular Volume 109.4 fL (80.0-100.0); Mean Platelet Volume 9.9 fL (9.4-12.4); Nucleated RBC # (auto) 0.03 K/uL (0.00-0.12); Platelet Count 83 K/uL (130-400); RDW Coefficient of Variation 16.9 % (11.5-14.5); RDW Standard Deviation 60.1 fL (36.4-46.3); Red Blood Count 2.67 M/uL (4.20-5.40); White Blood Count 188.43 K/ul (4.8-10.8)
[2023-08-27 08:50] LABS: BUN Creatinine Ratio 51.3 (10-20); Calcium 8.9 mg/dl (8.6-10.3); Creatinine Clr Calc Pharmacy 39.6 ml/min; Est GFR (African American) 82.9 ml/min; Est GFR (Non-African American) 71.5 ml/min; Potassium 5.1 mmol/L (3.5-5.1)
--- NOTE | 2023-08-27 15:59 | Hospitalist Progress Note ---
Date of Service August 27, 2023 Assessment & Plan (1) Pneumonia: Plan Patient is an 87 yr female with PMH of CLL, HTN, anxiety, depression, osteoarthritis, gout, GERD presented to the ER with complaint of cough & shortness of breath. Recently diagnosed of COVID 19 infection on 08/05/2023 with unremarkable CXR. Symptoms progressed with worsening cough and SOB and continued fevers. Recent infection with COVID-19 virus Likely superimposed bacterial pneumonia Immunocompromised State --Chest CT:Multifocal airspace consolidation throughout the right lung is typical for pneumonia/aspiration pneumonitis. Clinical correlation will be required and radiographic follow-up to resolution is recommended. Small pleural effusions, right larger than left. Mildly enlarged right hilar and subcarinal lymph nodes are nonspecific and likely reactive. -- Elevated procalcitonin, normal lactate levels --Blood culture negative --Sputum culture moderate normal joseph --Initially started on cefepime, vancomycin --Transitioned Zosyn 08/12 and Doxy 08/12 to Augmentin 08/16 and linezolid 08/16 per pulm recommendation. But again changed back to unasyn and iv doxy on 08/17 given NPO status d/t swallowing issues Completed antibiotics per prior provider Pulm recs appreciated. Mucomyst and hypertonic saline discontinued Continue DuoNebs, antitussives as needed Persistent leukocytosis due to CLL Continue home prednisone 5 mg daily. Continue with incentive spirometry and flutter valve. Swallowing difficulty/dysphagia: Right cerebellar stroke Patient started having swallowing difficulty since 08/16 --MRI Brain:Punctate focus of restricted diffusion in the right cerebellum is more conspicuous than in the prior exam, compatible with a tiny acute infarct. --Head CTA:There is no hemorrhage, mass effect, or evidence of acute territorial ischemia by CT criteria. Unremarkable CT angiogram of the brain. --Neck CTA:No occlusion, hemodynamically significant stenosis, or dissection in the major cervical arteries. --ECHO: EF 60 to 65%. Mild concentric LVH. Left ventricle wall motion is normal. Grade 1 diastolic dysfunction. Mild aortic regurgitation. Mild tricuspid regurgitation. -- Appreciate neurology input --Neurology suggested dual antiplatelet therapy for 3 weeks and then transition to aspirin 81 mg daily --GI evaluation noted, S/p EGD scope 08/19 - without cause of dysphagia. 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 Patient will need to be off plavix for 5 days prior to procedure for PEG placement and confirmed with Dr Herman (Neurologist). Ok to hold plavix for procedure. Continue Aspirin. Plavix held. Will resume post procedure PEG planned for 08/29/23 Continue high dose statin Needs follow-up with neurology, GI on discharge Continue PT OT, rehab as able Prediabetes HbA1c 6.3 No tight glycemic management needed given advanced age Hyperkalemia Due to tube feeds Appreciate nephrology input Monitor Recent Infection due to COVID-19: COVID-19 infection noted initially on 05 August 2023. COVID remains positive on admission Off isolation. Elevated troponin: Likely demand ischemia from hypoxemia secondary to acute illness. Troponin elevated at 457, down trended. Patient with no chest pain. EKG with sinus tachycardia. Echo with EF of 60 to 65%, LV wall motion normal, grade 1 medical dysfunction. Continue telemetry. Chronic lymphocytic leukemia: Thrombocytopenia On admission, WBC: 159 (was 129 on 07/15/23), Hgb: 11, Plt: 59 (at baseline) Receives IVIG monthly. Last was 07/16/[address] Vasquez Other chronic medical conditions: Continue with/resume home meds as and when able Chronic anemia/chronic thrombocytopenia/hypogammaglobulinemia - Stable. Anxiety and depression: on citalopram, Lorazepam. Osteoarthritis: Continue home prednisone. DVT Px: SCDs, re- thrombocytopenia Code Status Conditional Code - would like trial of CPR/chest compression and defibrillation. Does not want advanced airway or intubation Follows with Dr Estrada for routine care Admission and Anticipated Discharge Date Admission Date: August 11, 2023 Subjective Patient is seen and examined at bedside Communicates using iPad due to chronic hearing impairment " Waiting for PEG tube on Friday" Reports minimal chest discomfort with cough Denies any nausea, vomiting, abdominal pain, diarrhea On tube feeds Review of Systems Review of Systems: All systems reviewed & are unremarkable except as noted in Subjective Physical Exam Physical Exam: Physical Exam: Vitals signs as noted above General Appearance:Thin, frail, elderly, no apparent distress Head: normocephalic, Atraumatic Eyes: normal inspection, EOMI Neck: supple, Trachea midline Respiratory/Chest: Normal breath sounds, CTA, No accessory muscle use Cardiovascular: S1, S2, No murmur Abdomen/GI:Soft, Non tender, Bowel sounds present Extremities/Musculoskeletal:normal inspection, no edema Neurologic/Psych:AAOX2, grossly no focal neurological deficits ,+Decreased hearing, mild dysarthria Skin: normal color, warm, + ecchymosis Results & Data Results & Data Vital Signs (Past 12 Hours) Vital Signs Temp Pulse Pulse Resp BP Pulse Ox O2 Del Method 08/27/23 14:59 88 08/27/23 11:38 Nasal Cannula 08/27/23 07:46 36.6 C 100 H 16 141/72 H 98 Nasal Cannula 08/27/23 07:20 102 H 20 97 Nasal Cannula 08/27/23 07:16 88 O2 Flow Rate 08/27/23 14:59 08/27/23 11:38 1 08/27/23 07:46 1 08/27/23 07:20 1 08/27/23 07:16 Laboratory Results Short CBC 08/27/23 Range/Units 08:04 WBC 188.43 H* (4.8-10.8) K/ul Hgb 8.8 L (12.0-16.0) g/dl Hct 29.2 L (37.0-47.0) % Plt Count 83 L (130-400) K/uL BMP 08/27/23 08:04 Sodium 137 Potassium 5.1 D Chloride 99 Carbon Dioxide 36 H BUN 39 H Creatinine 0.76 Glucose 137 H Calcium 8.9
[2023-08-27] MEDS: guaiFENesin/DEXTROM SYRUP 200MG/20MG 10ML UDC PO PRN (21:44)
[2023-08-28 07:54] LABS: BUN Creatinine Ratio 55.9 (10-20); Calcium 8.9 mg/dl (8.6-10.3); Creatinine Clr Calc Pharmacy 42.8 ml/min; Est GFR (African American) 92.4 ml/min; Est GFR (Non-African American) 79.8 ml/min; Potassium 5.1 mmol/L (3.5-5.1)
--- NOTE | 2023-08-28 09:53 | Communication Note ---
Date of Service: August 28, 2023 GI rediscussed PEG with patient & family at bedside. Risks and benefits discussed. Plan for EGD w/ PEG placement tomorrow AM at 0830. Please continue to hold Plavix. Can continue ASA. Strict NPO status after midnight. We appreciate assistance in the management of any serological abnormality and corrections to include: hemoglobin >7, INR <2, platelets >50,000, potassium levels >3.5 but <5.3, and sodium levels within 5 points of the reference range prior to endoscopic evaluation. Thank you for allowing us to participate in the care of this patient. Please call with any acute changes, questions or concerns. Please see addendum below with additional recommendation from my supervising physician. Patient seen and examined at bedside. Discussed risk and benefits of PEG tube procedure including infection, perforation, and bleeding especially as Plavix only will have been held for 4 days. Discussed if we can not find a window during procedure we can not place PEG and it would need to be placed by surgery or IR. We also discussed that once PEG tube is placed it must remain for at least 8 weeks even if PEG tube is not needed to allow the tract to mature. patient understands all risks and agreeable to proceeding with PEG tube placement tomorrow. NPO at midnight including holding all tube feeds. Continue to hold Plavix. Malissa Wiley DO Gastroenterology and Hepatology
--- NOTE | 2023-08-28 11:02 | XRay Report ---
KUB HISTORY: Status post placement of an enteric tube NG tube position COMPARISON: CT abdomen and pelvis 01/17/2023. FINDINGS: Bilateral breast calcifications. Cardiomegaly. Status post placement of an enteric tube, di stal tip partially imaged projected over the gastric body. The lower abdomen is excluded from the fie ld-of-view. Chronic appearing left-sided rib fractures. No free air or dilated loops of bowel identif ied. The spleen appears enlarged. No renal calculi. No ureteral calculi. No pneumoperitoneum or pneu matosis. Right shoulder arthroplasty. No fracture. IMPRESSION: Partially imaged distal tip of enteric tube projects over the gastric body. ACT 112: Negative or not required by law. The above report was generated using voice recognition software. It may contain grammatical, syntax o r spelling errors. Electronically signed by: Bobby Petit M.D. 08/28/2023 11:01 AM
--- NOTE | 2023-08-28 15:21 | Hospitalist Progress Note ---
Date of Service August 28, 2023 Assessment & Plan (1) Pneumonia: Plan Patient is an 87 yr female with PMH of CLL, HTN, anxiety, depression, osteoarthritis, gout, GERD presented to the ER with complaint of cough & shortness of breath. Recently diagnosed of COVID 19 infection on 08/05/2023 with unremarkable CXR. Symptoms progressed with worsening cough and SOB and continued fevers. Recent infection with COVID-19 virus Likely superimposed bacterial pneumonia Immunocompromised State --Chest CT:Multifocal airspace consolidation throughout the right lung is typical for pneumonia/aspiration pneumonitis. Clinical correlation will be required and radiographic follow-up to resolution is recommended. Small pleural effusions, right larger than left. Mildly enlarged right hilar and subcarinal lymph nodes are nonspecific and likely reactive. -- Elevated procalcitonin, normal lactate levels --Blood culture negative --Sputum culture moderate normal joseph --Initially started on cefepime, vancomycin --Transitioned Zosyn 08/12 and Doxy 08/12 to Augmentin 08/16 and linezolid 08/16 per pulm recommendation. But again changed back to unasyn and iv doxy on 08/17 given NPO status d/t swallowing issues Completed antibiotics per prior provider Pulm recs appreciated. Mucomyst and hypertonic saline discontinued Continue DuoNebs, antitussives as needed Persistent leukocytosis due to CLL Continue home prednisone 5 mg daily. Continue with incentive spirometry and flutter valve. Plan to discharge to rehab facility as able Swallowing difficulty/dysphagia: Right cerebellar stroke Patient started having swallowing difficulty since 08/16 --MRI Brain:Punctate focus of restricted diffusion in the right cerebellum is more conspicuous than in the prior exam, compatible with a tiny acute infarct. --Head CTA:There is no hemorrhage, mass effect, or evidence of acute territorial ischemia by CT criteria. Unremarkable CT angiogram of the brain. --Neck CTA:No occlusion, hemodynamically significant stenosis, or dissection in the major cervical arteries. --ECHO: EF 60 to 65%. Mild concentric LVH. Left ventricle wall motion is normal. Grade 1 diastolic dysfunction. Mild aortic regurgitation. Mild tricuspid regurgitation. -- Appreciate neurology input --Neurology suggested dual antiplatelet therapy for 3 weeks and then transition to aspirin 81 mg daily --GI evaluation noted, S/p EGD scope 08/19 - without cause of dysphagia. 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 Patient will need to be off plavix for 5 days prior to procedure for PEG placement and confirmed with Dr Nadia sloan (Neurologist). Ok to hold plavix for procedure. Continue Aspirin. Plavix held. Will resume post procedure PEG planned for 08/29/23 Continue high dose statin Needs follow-up with neurology, GI on discharge Continue PT OT, rehab as able NG tube changed on 08/28/2023 Plan for PEG tube placement tomorrow Prediabetes HbA1c 6.3 No tight glycemic management needed given advanced age Hyperkalemia Due to tube feeds Appreciate nephrology input Monitor Recent Infection due to COVID-19: COVID-19 infection noted initially on 05 August 2023. COVID remains positive on admission Off isolation. Elevated troponin: Likely demand ischemia from hypoxemia secondary to acute illness. Troponin elevated at 457, down trended. Patient with no chest pain. EKG with sinus tachycardia. Echo with EF of 60 to 65%, LV wall motion normal, grade 1 medical dysfunction. Continue telemetry Chronic lymphocytic leukemia: Thrombocytopenia On admission, WBC: 159 (was 129 on 07/15/23), Hgb: 11, Plt: 59 (at baseline) Receives IVIG monthly. Last was 07/16/[address] Vasquez Other chronic medical conditions: Continue with/resume home meds as and when able Chronic anemia/chronic thrombocytopenia/hypogammaglobulinemia - Stable. Anxiety and depression: on citalopram, Lorazepam. Osteoarthritis: Continue home prednisone. DVT Px: SCDs, re- thrombocytopenia Code Status Conditional Code - would like trial of CPR/chest compression and defibrillation. Does not want advanced airway or intubation Follows with Dr Estrada for routine care Admission and Anticipated Discharge Date Admission Date: August 11, 2023 Subjective Patient is seen and examined at bedside Communicates using iPad due to chronic hearing impairment Had NG tube replaced today due to clogging States feeling tired today No new complaints less cough today Denies any nausea, vomiting, abdominal pain, diarrhea sitter at bedside Review of Systems Review of Systems: All systems reviewed & are unremarkable except as noted in Subjective Physical Exam Physical Exam: Physical Exam: Vitals signs as noted above General Appearance:Thin, frail, elderly, no apparent distress Head: normocephalic, Atraumatic Eyes: normal inspection, EOMI Neck: supple, Trachea midline Respiratory/Chest: Normal breath sounds, CTA, No accessory muscle use Cardiovascular: S1, S2, No murmur Abdomen/GI:Soft, Non tender, Bowel sounds present Extremities/Musculoskeletal:normal inspection, no edema Neurologic/Psych:AAOX2, grossly no focal neurological deficits ,+Decreased hearing, mild dysarthria Skin: normal color, warm, + ecchymosis Results & Data Results & Data Vital Signs (Past 12 Hours) Vital Signs Temp Pulse Pulse Resp BP Pulse Ox O2 Del Method 08/28/23 12:05 36.4 C L 107 H 16 140/76 99 Nasal Cannula 08/28/23 10:36 93 H 08/28/23 07:53 36.7 C 91 H 16 155/75 H 99 Room Air 08/28/23 07:30 Nasal Cannula 08/28/23 07:29 81 18 96 Nasal Cannula 08/28/23 04:27 36.7 C 98 H 18 157/79 H 95 Nasal Cannula O2 Flow Rate 08/28/23 12:05 2 08/28/23 10:36 08/28/23 07:53 08/28/23 07:30 2 08/28/23 07:29 2 08/28/23 04:27 1 Laboratory Results BMP 08/28/23 06:56 Sodium 136 Potassium 5.1 Chloride 99 Carbon Dioxide 33 H BUN 38 H Creatinine 0.68 Glucose 129 H Calcium 8.9
[2023-08-29 07:33] LABS: Hematocrit (blood only) 30.4 % (37.0-47.0); Hemoglobin 8.9 g/dl (12.0-16.0); Mean Corpuscular Hemoglobin 32.6 pg (25.0-34.0); Mean Corpuscular Hgb Conc 29.3 g/dL (32.0-36.0); Mean Corpuscular Volume 111.4 fL (80.0-100.0); Mean Platelet Volume 10.1 fL (9.4-12.4); Platelet Count 92 K/uL (130-400); RDW Standard Deviation 65.3 fL (36.4-46.3); Red Blood Count 2.73 M/uL (4.20-5.40); White Blood Count 187.17 K/ul (4.8-10.8)
[2023-08-29 07:38] LABS: BUN Creatinine Ratio 51.5 (10-20); Calcium 8.7 mg/dl (8.6-10.3); Creatinine Clr Calc Pharmacy 42.8 ml/min; Est GFR (African American) 92.4 ml/min; Est GFR (Non-African American) 79.8 ml/min; Potassium 4.8 mmol/L (3.5-5.1)
--- NOTE | 2023-08-29 11:52 | Anesthesiology Progress Note ---
Date of Service August 29, 2023 Anesthesia Post Procedure Vital Signs Vital Signs: Temp Pulse Pulse Resp BP BP Pulse Ox 08/29/23 10:58 08/29/23 08:25 36.8 C 94 H 16 154/76 H 100 08/29/23 07:23 96 H 08/29/23 04:00 36.2 C L 94 H 14 162/82 H 97 08/29/23 03:47 08/29/23 00:00 36.6 C 95 H 16 135/74 08/28/23 21:57 80 08/28/23 19:58 105 H 18 95 08/28/23 19:24 36.8 C 112 H 20 135/82 95 08/28/23 16:57 80 08/28/23 15:57 36.8 C 109 H 138/76 98 08/28/23 12:05 36.4 C L 107 H 16 140/76 99 O2 Del Method O2 Flow Rate 08/29/23 10:58 Nasal Cannula 2 08/29/23 08:25 Nasal Cannula 1 08/29/23 07:23 08/29/23 04:00 Nasal Cannula 1 08/29/23 03:47 Nasal Cannula 2 08/29/23 00:00 Nasal Cannula 1 08/28/23 21:57 08/28/23 19:58 Nasal Cannula 1 08/28/23 19:24 Nasal Cannula 1 08/28/23 16:57 08/28/23 15:57 Nasal Cannula 1 08/28/23 12:05 Nasal Cannula 2 Pain Intensity Left Ear: Pain Intensity: 4 Transfer of Care Handoff Completed per policy Notes Mental Status: alert / awake / arousable and participated in evaluation Nausea / Vomiting: adequately controlled Pain: adequately controlled Airway Patency, RR, SpO2: stable & adequate BP & HR: stable & adequate Hydration State: stable & adequate Anesthetic Complications: no major complications apparent and Pt Satisfied with anesthetic care
--- NOTE | 2023-08-29 12:16 | Communication Note ---
Date of Service: August 29, 2023 Patient was supposed to have PEG tube placed this AM but when attempting to bring her down she still had tube feeds running as these were not stopped o vernight. Will therefore have to plan for PEG tube placement on Friday. Please continue to hold Plavix this weekend and ensure that ALL TUBE FEEDS ARE HELD FRIDAY AFTER MIDNIGHT. Malissa Wiley, DO Gastroenterology and Hepatology
--- NOTE | 2023-08-29 16:18 | Hospitalist Progress Note ---
Date of Service August 29, 2023 Assessment & Plan (1) Pneumonia: Plan Patient is an 87 yr female with PMH of CLL, HTN, anxiety, depression, osteoarthritis, gout, GERD presented to the ER with complaint of cough & shortness of breath. Recently diagnosed of COVID 19 infection on 08/05/2023 with unremarkable CXR. Symptoms progressed with worsening cough and SOB and continued fevers. Recent infection with COVID-19 virus Likely superimposed bacterial pneumonia Immunocompromised State --Chest CT:Multifocal airspace consolidation throughout the right lung is typical for pneumonia/aspiration pneumonitis. Clinical correlation will be required and radiographic follow-up to resolution is recommended. Small pleural effusions, right larger than left. Mildly enlarged right hilar and subcarinal lymph nodes are nonspecific and likely reactive. -- Elevated procalcitonin, normal lactate levels --Blood culture negative --Sputum culture moderate normal joseph --Initially started on cefepime, vancomycin --Transitioned Zosyn 08/12 and Doxy 08/12 to Augmentin 08/16 and linezolid 08/16 per pulm recommendation. But again changed back to unasyn and iv doxy on 08/17 given NPO status d/t swallowing issues Completed antibiotics per prior provider Pulm recs appreciated. Mucomyst and hypertonic saline discontinued Continue DuoNebs, antitussives as needed Persistent leukocytosis due to CLL Continue home prednisone 5 mg daily. Continue with incentive spirometry and flutter valve. Plan to discharge to rehab facility as able Continue current management Swallowing difficulty/dysphagia: Right cerebellar stroke Patient started having swallowing difficulty since 08/16 --MRI Brain:Punctate focus of restricted diffusion in the right cerebellum is more conspicuous than in the prior exam, compatible with a tiny acute infarct. --Head CTA:There is no hemorrhage, mass effect, or evidence of acute territorial ischemia by CT criteria. Unremarkable CT angiogram of the brain. --Neck CTA:No occlusion, hemodynamically significant stenosis, or dissection in the major cervical arteries. --ECHO: EF 60 to 65%. Mild concentric LVH. Left ventricle wall motion is normal. Grade 1 diastolic dysfunction. Mild aortic regurgitation. Mild tricuspid regurgitation. -- Appreciate neurology input --Neurology suggested dual antiplatelet therapy for 3 weeks and then transition to aspirin 81 mg daily --GI evaluation noted, S/p EGD scope 08/19 - without cause of dysphagia. 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 Patient will need to be off plavix for 5 days prior to procedure for PEG placement and confirmed with Dr Herman (Neurologist). Ok to hold plavix for procedure. Continue Aspirin. Plavix held. Will resume post procedure PEG planned for 08/29/23 Continue high dose statin Needs follow-up with neurology, GI on discharge Continue PT OT, rehab as able NG tube changed on 08/28/2023 Plan for PEG tube placement on Friday Prediabetes HbA1c 6.3 No tight glycemic management needed given advanced age Hyperkalemia Due to tube feeds Appreciate nephrology input Monitor Recent Infection due to COVID-19: COVID-19 infection noted initially on 05 August 2023. COVID remains positive on admission Off isolation. Elevated troponin: Likely demand ischemia from hypoxemia secondary to acute illness. Troponin elevated at 457, down trended. Patient with no chest pain. EKG with sinus tachycardia. Echo with EF of 60 to 65%, LV wall motion normal, grade 1 medical dysfunction. Continue telemetry Chronic lymphocytic leukemia: Thrombocytopenia On admission, WBC: 159 (was 129 on 07/15/23), Hgb: 11, Plt: 59 (at baseline) Receives IVIG monthly. Last was 07/16/[address] Vasquez Severe malnutrition BMI 17 Continue tube feeds Dietitian on board Other chronic medical conditions: Continue with/resume home meds as and when able Chronic anemia/chronic thrombocytopenia/hypogammaglobulinemia - Stable. Anxiety and depression: on citalopram, Lorazepam. Osteoarthritis: Continue home prednisone. DVT Px: SCDs, re- thrombocytopenia Code Status Conditional Code - would like trial of CPR/chest compression and defibrillation. Does not want advanced airway or intubation Follows with Dr Estrada for routine care Admission and Anticipated Discharge Date Admission Date: August 11, 2023 Subjective Patient is seen and examined at bedside Communicates using iPad due to chronic hearing impairment Admits to have minimal cough but otherwise no complaints Discussed with patient's family at bedside Denies any nausea, vomiting, abdominal pain, diarrhea Review of Systems Review of Systems: All systems reviewed & are unremarkable except as noted in Subjective Physical Exam Physical Exam: Physical Exam: Vitals signs as noted above General Appearance:Thin, frail, elderly, no apparent distress Head: normocephalic, Atraumatic Eyes: normal inspection, EOMI Neck: supple, Trachea midline Respiratory/Chest: Normal breath sounds, CTA, No accessory muscle use Cardiovascular: S1, S2, No murmur Abdomen/GI:Soft, Non tender, Bowel sounds present Extremities/Musculoskeletal:normal inspection, no edema Neurologic/Psych:AAOX2, grossly no focal neurological deficits ,+Decreased hearing, mild dysarthria Skin: normal color, warm, + ecchymosis Results & Data Results & Data Vital Signs (Past 12 Hours) Vital Signs Temp Pulse Pulse Resp BP Pulse Ox O2 Del Method 08/29/23 15:10 36.3 C L 98 H 16 120/66 96 Nasal Cannula 08/29/23 11:57 36.9 C 96 H 18 128/80 97 Nasal Cannula 08/29/23 10:58 Nasal Cannula 08/29/23 08:25 36.8 C 94 H 16 154/76 H 100 Nasal Cannula 08/29/23 07:23 96 H O2 Flow Rate 08/29/23 15:10 1 08/29/23 11:57 1 08/29/23 10:58 2 08/29/23 08:25 1 08/29/23 07:23 Laboratory Results Short CBC 08/29/23 Range/Units 06:26 WBC 187.17 H* (4.8-10.8) K/ul Hgb 8.9 L (12.0-16.0) g/dl Hct 30.4 L (37.0-47.0) % Plt Count 92 L (130-400) K/uL BMP 08/29/23 06:26 Sodium 135 L Potassium 4.8 Chloride 100 Carbon Dioxide 31 BUN 35 H Creatinine 0.68 Glucose 126 H Calcium 8.7
[2023-08-30 08:24] LABS: Hematocrit (blood only) 29.9 % (37.0-47.0); Mean Corpuscular Hemoglobin 33.7 pg (25.0-34.0); Mean Corpuscular Hgb Conc 30.1 g/dL (32.0-36.0); Mean Platelet Volume 9.3 fL (9.4-12.4); Platelet Count 93 K/uL (130-400); RDW Coefficient of Variation 18.7 % (11.5-14.5); RDW Standard Deviation 65.6 fL (36.4-46.3); Red Blood Count 2.67 M/uL (4.20-5.40); White Blood Count 181.15 K/ul (4.8-10.8)
[2023-08-30 08:50] LABS: BUN Creatinine Ratio 57.1 (10-20); Calcium 8.7 mg/dl (8.6-10.3); Est GFR (African American) 94.8 ml/min; Est GFR (Non-African American) 81.8 ml/min
--- NOTE | 2023-08-30 15:25 | Hospitalist Progress Note ---
Date of Service August 30, 2023 Assessment & Plan (1) Pneumonia: Plan Patient is an 87 yr female with PMH of CLL, HTN, anxiety, depression, osteoarthritis, gout, GERD presented to the ER with complaint of cough & shortness of breath. Recently diagnosed of COVID 19 infection on 08/05/2023 with unremarkable CXR. Symptoms progressed with worsening cough and SOB and continued fevers. Recent infection with COVID-19 virus Likely superimposed bacterial pneumonia Immunocompromised State --Chest CT:Multifocal airspace consolidation throughout the right lung is typical for pneumonia/aspiration pneumonitis. Clinical correlation will be required and radiographic follow-up to resolution is recommended. Small pleural effusions, right larger than left. Mildly enlarged right hilar and subcarinal lymph nodes are nonspecific and likely reactive. -- Elevated procalcitonin, normal lactate levels --Blood culture negative --Sputum culture moderate normal joseph --Initially started on cefepime, vancomycin --Transitioned Zosyn 08/12 and Doxy 08/12 to Augmentin 08/16 and linezolid 08/16 per pulm recommendation. But again changed back to unasyn and iv doxy on 08/17 given NPO status d/t swallowing issues Completed antibiotics per prior provider Pulm recs appreciated. Mucomyst and hypertonic saline discontinued Continue DuoNebs, antitussives as needed Persistent leukocytosis due to CLL Continue home prednisone 5 mg daily. Continue with incentive spirometry and flutter valve. Plan to discharge to rehab facility as able Saturating well on 1 L supplemental oxygen, wean off of oxygen as able Swallowing difficulty/dysphagia: Right cerebellar stroke Patient started having swallowing difficulty since 08/16 --MRI Brain:Punctate focus of restricted diffusion in the right cerebellum is more conspicuous than in the prior exam, compatible with a tiny acute infarct. --Head CTA:There is no hemorrhage, mass effect, or evidence of acute territorial ischemia by CT criteria. Unremarkable CT angiogram of the brain. --Neck CTA:No occlusion, hemodynamically significant stenosis, or dissection in the major cervical arteries. --ECHO: EF 60 to 65%. Mild concentric LVH. Left ventricle wall motion is normal. Grade 1 diastolic dysfunction. Mild aortic regurgitation. Mild tricuspid regurgitation. -- Appreciate neurology input --Neurology suggested dual antiplatelet therapy for 3 weeks and then transition to aspirin 81 mg daily --GI evaluation noted, S/p EGD scope 08/19 - without cause of dysphagia. 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 Patient will need to be off plavix for 5 days prior to procedure for PEG placement and confirmed with Dr Herman (Neurologist). Ok to hold plavix for procedure. Continue Aspirin. Plavix held. Will resume post procedure PEG planned for 08/29/23 Continue high dose statin Needs follow-up with neurology, GI on discharge Continue PT OT, rehab as able NG tube changed on 08/28/2023 Plan for PEG tube placement on Friday Tolerating tube feeds Prediabetes HbA1c 6.3 No tight glycemic management needed given advanced age Hyperkalemia Due to tube feeds Appreciate nephrology input Monitor Recent Infection due to COVID-19: COVID-19 infection noted initially on 05 August 2023. COVID remains positive on admission Off isolation. Elevated troponin: Likely demand ischemia from hypoxemia secondary to acute illness. Troponin elevated at 457, down trended. Patient with no chest pain. EKG with sinus tachycardia. Echo with EF of 60 to 65%, LV wall motion normal, grade 1 medical dysfunction. Continue telemetry Chronic lymphocytic leukemia: Thrombocytopenia On admission, WBC: 159 (was 129 on 07/15/23), Hgb: 11, Plt: 59 (at baseline) Receives IVIG monthly. Last was 07/16/[address] Vasquez Severe malnutrition BMI 17 Continue tube feeds Dietitian on board Other chronic medical conditions: Continue with/resume home meds as and when able Chronic anemia/chronic thrombocytopenia/hypogammaglobulinemia - Stable. Anxiety and depression: on citalopram, Lorazepam. Osteoarthritis: Continue home prednisone. DVT Px: SCDs, re- thrombocytopenia Code Status Conditional Code - would like trial of CPR/chest compression and defibrillation. Does not want advanced airway or intubation Follows with Dr Estrada for routine care Admission and Anticipated Discharge Date Admission Date: August 11, 2023 Subjective Patient is seen and examined at bedside Communicates using iPad due to chronic hearing impairment States feeling well today No new complaints Intermittent dry cough Denies any nausea, vomiting, abdominal pain, diarrhea Review of Systems Review of Systems: All systems reviewed & are unremarkable except as noted in Subjective Physical Exam Physical Exam: Physical Exam: Vitals signs as noted above General Appearance:Thin, frail, elderly, no apparent distress Head: normocephalic, Atraumatic Eyes: normal inspection, EOMI Neck: supple, Trachea midline Respiratory/Chest: Normal breath sounds, CTA, No accessory muscle use Cardiovascular: S1, S2, No murmur Abdomen/GI:Soft, Non tender, Bowel sounds present Extremities/Musculoskeletal:normal inspection, no edema Neurologic/Psych:AAOX2, grossly no focal neurological deficits ,+Decreased hearing, mild dysarthria Skin: normal color, warm, + ecchymosis Results & Data Results & Data Vital Signs (Past 12 Hours) Vital Signs Temp Pulse Pulse Resp BP BP Pulse Ox 08/30/23 11:23 37.2 C 94 H 16 132/71 100 08/30/23 09:20 82 08/30/23 08:17 36.8 C 95 H 16 132/65 100 08/30/23 07:38 08/30/23 07:20 101 H 19 92 08/30/23 04:22 36.8 C 102 H 20 151/85 H 95 O2 Del Method O2 Flow Rate 08/30/23 11:23 Nasal Cannula 1 08/30/23 09:20 08/30/23 08:17 Nasal Cannula 1 08/30/23 07:38 Nasal Cannula 2 08/30/23 07:20 Nasal Cannula 2 08/30/23 04:22 Nasal Cannula 1 Laboratory Results Short CBC 08/30/23 Range/Units 07:49 WBC 181.15 H* (4.8-10.8) K/ul Hgb 9.0 L (12.0-16.0) g/dl Hct 29.9 L (37.0-47.0) % Plt Count 93 L (130-400) K/uL BMP 08/30/23 07:49 Sodium 134 L Potassium 5.0 Chloride 100 Carbon Dioxide 30 BUN 36 H Creatinine 0.63 Glucose 139 H Calcium 8.7
--- NOTE | 2023-08-31 10:20 | XRay Report ---
KUB HISTORY: confirm NG Tube placement COMPARISON: KUB 08/28/2023. FINDINGS: Nasogastric tube terminates in the stomach. Nonobstructive bowel gas pattern. Old, healed l eft-sided rib fractures. No renal calculi. No ureteral calculi. No pneumoperitoneum or pneumatosis. IMPRESSION: Nasogastric tube terminates in the stomach. ACT 112: Negative or not required by law. Electronically signed by: Pelon Denton M.D. 08/31/2023 10:18 AM
--- NOTE | 2023-08-31 14:26 | Hospitalist Progress Note ---
Date of Service August 31, 2023 Assessment & Plan (1) Pneumonia: Plan Patient is an 87 yr female with PMH of CLL, HTN, anxiety, depression, osteoarthritis, gout, GERD presented to the ER with complaint of cough & shortness of breath. Recently diagnosed of COVID 19 infection on 08/05/2023 with unremarkable CXR. Symptoms progressed with worsening cough and SOB and continued fevers. Recent infection with COVID-19 virus Likely superimposed bacterial pneumonia Immunocompromised State --Chest CT:Multifocal airspace consolidation throughout the right lung is typical for pneumonia/aspiration pneumonitis. Clinical correlation will be required and radiographic follow-up to resolution is recommended. Small pleural effusions, right larger than left. Mildly enlarged right hilar and subcarinal lymph nodes are nonspecific and likely reactive. -- Elevated procalcitonin, normal lactate levels --Blood culture negative --Sputum culture moderate normal joseph --Initially started on cefepime, vancomycin --Transitioned Zosyn 08/12 and Doxy 08/12 to Augmentin 08/16 and linezolid 08/16 per pulm recommendation. But again changed back to unasyn and iv doxy on 08/17 given NPO status d/t swallowing issues Completed antibiotics per prior provider Pulm recs appreciated. Mucomyst and hypertonic saline discontinued Continue DuoNebs, antitussives as needed Persistent leukocytosis due to CLL Continue home prednisone 5 mg daily. Continue with incentive spirometry and flutter valve. Plan to discharge to rehab facility as able Saturating well on 1 L supplemental oxygen, wean off of oxygen as able Respiratory status improved Swallowing difficulty/dysphagia: Right cerebellar stroke Patient started having swallowing difficulty since 08/16 --MRI Brain:Punctate focus of restricted diffusion in the right cerebellum is more conspicuous than in the prior exam, compatible with a tiny acute infarct. --Head CTA:There is no hemorrhage, mass effect, or evidence of acute territorial ischemia by CT criteria. Unremarkable CT angiogram of the brain. --Neck CTA:No occlusion, hemodynamically significant stenosis, or dissection in the major cervical arteries. --ECHO: EF 60 to 65%. Mild concentric LVH. Left ventricle wall motion is normal. Grade 1 diastolic dysfunction. Mild aortic regurgitation. Mild tricuspid regurgitation. -- Appreciate neurology input --Neurology suggested dual antiplatelet therapy for 3 weeks and then transition to aspirin 81 mg daily --GI evaluation noted, S/p EGD scope 08/19 - without cause of dysphagia. 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 Patient will need to be off plavix for 5 days prior to procedure for PEG placement and confirmed with Dr Herman (Neurologist). Ok to hold plavix for procedure. Continue Aspirin. Plavix held. Will resume post procedure PEG planned for 08/29/23 Continue high dose statin Needs follow-up with neurology, GI on discharge Continue PT OT, rehab as able NG tube changed on 08/28/2023 and 08/31/23 Hold tube feeds tonight, for PEG tube placement tomorrow Prediabetes HbA1c 6.3 No tight glycemic management needed given advanced age Hyperkalemia Due to tube feeds Appreciate nephrology input Monitor Recent Infection due to COVID-19: COVID-19 infection noted initially on 05 August 2023. COVID remains positive on admission Off isolation. Elevated troponin: Likely demand ischemia from hypoxemia secondary to acute illness. Troponin elevated at 457, down trended. Patient with no chest pain. EKG with sinus tachycardia. Echo with EF of 60 to 65%, LV wall motion normal, grade 1 medical dysfunction. Continue telemetry Chronic lymphocytic leukemia: Thrombocytopenia On admission, WBC: 159 (was 129 on 07/15/23), Hgb: 11, Plt: 59 (at baseline) Receives IVIG monthly. Last was 07/16/[address] Vasquez Severe malnutrition BMI 17 Continue tube feeds Dietitian on board Other chronic medical conditions: Continue with/resume home meds as and when able Chronic anemia/chronic thrombocytopenia/hypogammaglobulinemia - Stable. Anxiety and depression: on citalopram, Lorazepam. Osteoarthritis: Continue home prednisone. DVT Px: SCDs, re- thrombocytopenia Code Status Conditional Code - would like trial of CPR/chest compression and defibrillation. Does not want advanced airway or intubation Follows with Dr Estrada for routine care Admission and Anticipated Discharge Date Admission Date: August 11, 2023 Subjective Patient is seen and examined at bedside Communicates using iPad due to chronic hearing impairment NG tube had to be replaced today due to clogging Offers no other complaints today Plan for PEG tube placement tomorrow Denies any nausea, vomiting, abdominal pain, diarrhea Review of Systems Review of Systems: All systems reviewed & are unremarkable except as noted in Subjective Physical Exam Physical Exam: Physical Exam: Vitals signs as noted above General Appearance:Thin, frail, elderly, no apparent distress Head: normocephalic, Atraumatic Eyes: normal inspection, EOMI Neck: supple, Trachea midline Respiratory/Chest: Normal breath sounds, CTA, No accessory muscle use Cardiovascular: S1, S2, No murmur Abdomen/GI:Soft, Non tender, Bowel sounds present Extremities/Musculoskeletal:normal inspection, no edema Neurologic/Psych:AAOX2, grossly no focal neurological deficits ,+Decreased hearing, mild dysarthria Skin: normal color, warm, + ecchymosis Results & Data Results & Data Vital Signs (Past 12 Hours) Vital Signs Temp Pulse Pulse Resp BP Pulse Ox O2 Del Method 08/31/23 12:39 37.0 C 91 H 16 124/72 100 Nasal Cannula 08/31/23 10:45 87 08/31/23 10:39 Room Air 08/31/23 08:08 36.8 C 99 H 18 144/74 H 100 Nasal Cannula 08/31/23 07:06 105 H 14 98 Nasal Cannula 08/31/23 03:25 36.7 C 101 H 18 138/80 100 Nasal Cannula O2 Flow Rate 08/31/23 12:39 1 08/31/23 10:45 08/31/23 10:39 2 08/31/23 08:08 1 08/31/23 07:06 08/31/23 03:25 1
[2023-09-01 07:19] LABS: Hematocrit (blood only) 29.9 % (37.0-47.0); Mean Corpuscular Hemoglobin 33.6 pg (25.0-34.0); Mean Corpuscular Hgb Conc 30.1 g/dL (32.0-36.0); Mean Corpuscular Volume 111.6 fL (80.0-100.0); Mean Platelet Volume 9.4 fL (9.4-12.4); Nucleated RBC # (auto) 0.02 K/uL (0.00-0.12); Platelet Count 98 K/uL (130-400); RDW Coefficient of Variation 18.7 % (11.5-14.5); RDW Standard Deviation 68.5 fL (36.4-46.3); Red Blood Count 2.68 M/uL (4.20-5.40); White Blood Count 188.16 K/ul (4.8-10.8)
[2023-09-01 07:42] LABS: BUN Creatinine Ratio 57.1 (10-20); Calcium 8.6 mg/dl (8.6-10.3); Creatinine Clr Calc Pharmacy 46.9 ml/min; Est GFR (African American) 94.8 ml/min; Est GFR (Non-African American) 81.8 ml/min; Potassium 4.7 mmol/L (3.5-5.1)
--- NOTE | 2023-09-01 09:06 | History & Physical Bridge Note ---
Date of Service September 01, 2023 History & Physical Bridge Note I have examined the patient, reviewed the History & Physical and in the interval since the performance of the History & Physical I have noted the following changes of clinical significance: no changes noted EGD with PEG tube Patient was explained in detail regarding risks, benefits, limitations and alternatives of the above endoscopic procedure. Risks of intravenous sedation used for procedure were also explained. Risks include, but not limited to perforation, bleeding, infection, respiratory distress, cardiac arrest and . Patient is also aware about the possibility of missed lesion. Patient's questions were answered. The patient verbalized understanding the information and agreed to undergo the procedure.
[2023-09-01] MEDS: ceFAZolin 330 MG/ML 1 GM VIAL ONE (09:10)
--- NOTE | 2023-09-01 09:40 | GI REPORT ---
Patient Name: Abigail Adams Procedure Date: 09/01/2023 8:37 AM Date of : 1935 Admit Type: Inpatient Age: 87 Gender: Female Attending MD: Abbey Mccullough MD, Procedure: Upper GI endoscopy Providers: Abbey Mccullough MD Referring MD: Jonathan Holbrook Md Indications: Place PEG due to impaired swallowing, Place PEG due to neurological disorder causing impaired swallowing Medicines: Propofol per Anesthesia, Ancef 2000 mg IV Complications: No immediate complications. Estimated Blood Loss: Estimated blood loss: none. Procedure: Pre-Anesthesia Assessment: - Prior to the procedure, a History and Physical was performed, and patient medications, allergies and sensitivities were reviewed. The patient's tolerance of previous anesthesia was reviewed. - The risks and benefits of the procedure and the sedation options and risks were discussed with the patient. All questions were answered and informed consent was obtained. - Patient identification and proposed procedure were verified prior to the procedure by the physician and the nurse. The procedure was verified in the procedure room. - Pre-procedure physical examination revealed no contraindications to sedation. After obtaining informed consent, the endoscope was passed under direct vision. Throughout the procedure, the patient's blood pressure, pulse, and oxygen saturations were monitored continuously. The Endoscope was introduced through the mouth, and advanced to the second part of duodenum. The upper GI endoscopy was accomplished without difficulty. The patient tolerated the procedure well. Findings: The examined esophagus was normal. A single 6 mm sessile polyp with no stigmata of recent bleeding was found at the pylorus. The polyp was removed with a cold snare. Resection and retrieval were complete. Verification of patient identification for the specimen was done by the physician and nurse using the patient's name and date. Localized mucosal changes were found in the gastric antrum. The entire examined stomach was normal. The patient was placed in the supine position for PEG placement. The stomach was insufflated to appose gastric and abdominal rosa. A site was located in the body of the stomach with excellent transillumination and manual external pressure for placement. The abdominal wall was marked and prepped in a sterile manner. The area was anesthetized with 2 mL of 1% lidocaine. The trocar needle was introduced through the abdominal wall and into the stomach under direct endoscopic view. A snare was introduced through the endoscope and opened in the gastric lumen. The guide wire was passed through the trocar and into the open snare. The snare was closed around the guide wire. The endoscope and snare were removed, pulling the wire out through the mouth. A skin incision was made at the site of needle insertion. The externally removable 20 Fr Avanos KINDRA gastrostomy tube was lubricated. The G-tube was tied to the guide wire and pulled through the mouth and into the stomach. The trocar needle was removed, and the gastrostomy tube was pulled out from the stomach through the skin. The external bumper was attached to the gastrostomy tube, and the tube was cut to remove the guide wire. The final position of the gastrostomy tube was confirmed by relook endoscopy, and skin marking noted to be 2.5 cm at the external bumper. The final tension and compression of the abdominal wall by the PEG tube and external bumper were checked and revealed that the bumper was moderately tight and mildly deforming the skin. The feeding tube was capped, and the tube site cleaned and dressed. The duodenal bulb and second portion of the duodenum were normal. Impression: - Normal esophagus. - A single gastric polyp. Resected and retrieved. 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 - Normal duodenal bulb and second portion of the duodenum. - An externally removable PEG placement was successfully completed. Recommendation: - [facility]. - Await pathology results. - Please follow the post-PEG recommendations including: Nutrition consult for formula and volume, dry dressing only, NPO x4 hrs then water today, may use PEG tomorrow for feedings after being checked by GI physician. Abbey Mccullough MD 09/01/2023 9:39:43 AM This report has been signed electronically. Note Initiated On: 09/01/2023 8:37 AM Number of Addenda: 0 I attest to the content of the Intraoperative Record and orders documented therein, exceptions below {[id number]}
--- NOTE | 2023-09-01 11:05 | XRay Report ---
XR KUB/Abdomen 1 view CLINICAL HISTORY: Confirm PEG TECHNIQUE: 1 view of the abdomen was obtained. Comparison: Comparison is made to abdomen radiograph 08/31/2023 FINDINGS: The gastrostomy tube bulb projects over the expected position of the stomach. Degenerative changes ar e seen in the visualized skeleton. The bowel gas pattern is nonobstructive. Small stool burden is see n. IMPRESSION: Nonobstructive bowel gas pattern. ACT 112: Negative or not required by law. Electronically signed by: Sarabjit Wade M.D. 09/01/2023 11:04 AM
--- NOTE | 2023-09-01 11:59 | Anesthesiology Progress Note ---
Date of Service September 01, 2023 Anesthesia Post Procedure Vital Signs Vital Signs: Temp Pulse Pulse Resp BP BP Pulse Ox 09/01/23 11:36 37.1 C 102 H 18 116/64 97 09/01/23 11:05 37.1 C 101 H 18 134/73 98 09/01/23 10:44 09/01/23 10:30 36.9 C 101 H 20 133/71 93 09/01/23 10:17 36.9 C 103 H 18 124/70 95 09/01/23 10:08 36.7 C 101 H 18 125/54 L 91 09/01/23 09:57 98 H 18 97 09/01/23 09:44 99 H 19 119/63 95 09/01/23 09:30 107 H 24 102/58 L 95 09/01/23 09:27 84 09/01/23 08:35 36.7 C 101 H 16 126/65 98 09/01/23 08:01 17 95 09/01/23 07:36 36.7 C 101 H 18 134/68 96 09/01/23 03:07 36.4 C L 100 H 20 125/73 100 08/31/23 23:36 36.3 C L 100 H 20 117/71 99 08/31/23 23:00 08/31/23 21:58 105 H 08/31/23 19:51 36.8 C 102 H 20 120/61 100 08/31/23 19:13 111 H 15 96 08/31/23 17:20 100 H 08/31/23 15:41 36.3 C L 120 H 16 103/62 97 08/31/23 12:39 37.0 C 91 H 16 124/72 100 O2 Del Method O2 Flow Rate 09/01/23 11:36 Room Air 09/01/23 11:05 Nasal Cannula 2 09/01/23 10:44 Nasal Cannula 2 09/01/23 10:30 Nasal Cannula 2 09/01/23 10:17 Nasal Cannula 2 09/01/23 10:08 Room Air 09/01/23 09:57 Nasal Cannula 3 09/01/23 09:44 Nasal Cannula 3 09/01/23 09:30 Nasal Cannula 3 09/01/23 09:27 09/01/23 08:35 Nasal Cannula 2 09/01/23 08:01 Nasal Cannula 2 09/01/23 07:36 Nasal Cannula 2 09/01/23 03:07 Nasal Cannula 2 08/31/23 23:36 Nasal Cannula 2 08/31/23 23:00 Nasal Cannula 2 08/31/23 21:58 08/31/23 19:51 Nasal Cannula 1 08/31/23 19:13 Nasal Cannula 2 08/31/23 17:20 08/31/23 15:41 Nasal Cannula 1 08/31/23 12:39 Nasal Cannula 1 Pain Intensity Left Ear: Pain Intensity: 4 Transfer of Care Handoff Completed per policy Notes Mental Status: alert / awake / arousable and participated in evaluation Patient Amnestic to Procedure: Yes Nausea / Vomiting: adequately controlled Pain: adequately controlled Airway Patency, RR, SpO2: stable & adequate BP & HR: stable & adequate Hydration State: stable & adequate Anesthetic Complications: no major complications apparent
[2023-09-01] MEDS: LIDOCAINE 2% 2 ML VIAL/AMP(20MG/ML) INFIL ONE ×2 (12:16→16:47)
[2023-09-01] MEDS: PROPOFOL IV EMULSION 10 MG/ML 20 ML VIAL IV ONE (12:17)
[2023-09-01] MEDS ORDERED: ACETAMINOPHEN 1,000 MG/100 ML VIAL IV PRN (14:55)
[2023-09-01] MEDS: ACETAMINOPHEN 10MG/ML Custom 675 MG in EMPTY BAG 0 ML IV PRN (16:44)
--- NOTE | 2023-09-01 20:24 | Hospitalist Progress Note ---
Date of Service September 01, 2023 Assessment & Plan (1) Pneumonia: Plan Patient is an 87 yr female with PMH of CLL, HTN, anxiety, depression, osteoarthritis, gout, GERD presented to the ER with complaint of cough & shortness of breath. Recently diagnosed of COVID 19 infection on 08/05/2023 with unremarkable CXR. Symptoms progressed with worsening cough and SOB and continued fevers. Recent infection with COVID-19 virus Likely superimposed bacterial pneumonia Immunocompromised State --Chest CT:Multifocal airspace consolidation throughout the right lung is typical for pneumonia/aspiration pneumonitis. Clinical correlation will be required and radiographic follow-up to resolution is recommended. Small pleural effusions, right larger than left. Mildly enlarged right hilar and subcarinal lymph nodes are nonspecific and likely reactive. -- Elevated procalcitonin, normal lactate levels --Blood culture negative --Sputum culture moderate normal joseph --Initially started on cefepime, vancomycin --Transitioned Zosyn 08/12 and Doxy 08/12 to Augmentin 08/16 and linezolid 08/16 per pulm recommendation. But again changed back to unasyn and iv doxy on 08/17 given NPO status d/t swallowing issues Completed antibiotics per prior provider Pulm recs appreciated. Mucomyst and hypertonic saline discontinued Continue DuoNebs, antitussives as needed Persistent leukocytosis due to CLL Continue home prednisone 5 mg daily. Continue with incentive spirometry and flutter valve. Continue supplemental oxygen as needed Plan to discharge to rehab facility as able Swallowing difficulty/dysphagia: Right cerebellar stroke Patient started having swallowing difficulty since 08/16 --MRI Brain:Punctate focus of restricted diffusion in the right cerebellum is more conspicuous than in the prior exam, compatible with a tiny acute infarct. --Head CTA:There is no hemorrhage, mass effect, or evidence of acute territorial ischemia by CT criteria. Unremarkable CT angiogram of the brain. --Neck CTA:No occlusion, hemodynamically significant stenosis, or dissection in the major cervical arteries. --ECHO: EF 60 to 65%. Mild concentric LVH. Left ventricle wall motion is normal. Grade 1 diastolic dysfunction. Mild aortic regurgitation. Mild tricuspid regurgitation. -- Appreciate neurology input --Neurology suggested dual antiplatelet therapy for 3 weeks and then transition to aspirin 81 mg daily --GI evaluation noted, S/p EGD scope 08/19 - without cause of dysphagia. 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 Patient will need to be off plavix for 5 days prior to procedure for PEG placement and confirmed with Dr Herman (Neurologist). Ok to hold plavix for procedure. Continue Aspirin. Plavix held for PEG placement Continue high dose statin Needs follow-up with neurology, GI on discharge Continue PT OT, rehab as able NG tube changed on 08/28/2023 and 08/31/23 S/P PEG tube placement on 09/01/2023 Plan to start tube feeds via PEG tomorrow Resume Plavix as able Gastric polyp S/P resected and retrieved Gastric intestinal metaplasia in the antrum Follow-up pathology Prediabetes HbA1c 6.3 No tight glycemic management needed given advanced age Hyperkalemia Due to tube feeds Appreciate nephrology input Monitor Recent Infection due to COVID-19: COVID-19 infection noted initially on 05 August 2023. COVID remains positive on admission Off isolation. Elevated troponin: Likely demand ischemia from hypoxemia secondary to acute illness. Troponin elevated at 457, down trended. Patient with no chest pain. EKG with sinus tachycardia. Echo with EF of 60 to 65%, LV wall motion normal, grade 1 medical dysfunction. Continue telemetry Chronic lymphocytic leukemia: Thrombocytopenia On admission, WBC: 159 (was 129 on 07/15/23), Hgb: 11, Plt: 59 (at baseline) Receives IVIG monthly. Last was 07/16/[address] Vasquez Severe malnutrition BMI 17 Continue tube feeds Dietitian on board Other chronic medical conditions: Continue with/resume home meds as and when able Chronic anemia/chronic thrombocytopenia/hypogammaglobulinemia - Stable. Anxiety and depression: on citalopram, Lorazepam. Osteoarthritis: Continue home prednisone. DVT Px: SCDs, re- thrombocytopenia Code Status Conditional Code - would like trial of CPR/chest compression and defibrillation. Does not want advanced airway or intubation Follows with Dr Estrada for routine care Admission and Anticipated Discharge Date Admission Date: August 11, 2023 Subjective Patient is seen and examined at bedside Was lethargic during my encounter this morning Had PEG tube placement today Denies any significant pain at PEG tube site Discussed with caregiver at bedside Denies any nausea, vomiting, abdominal pain, diarrhea Review of Systems Review of Systems: All systems reviewed & are unremarkable except as noted in Subjective Physical Exam Physical Exam: Physical Exam: Vitals signs as noted above General Appearance:Thin, frail, elderly, no apparent distress Head: normocephalic, Atraumatic Eyes: normal inspection, EOMI Neck: supple, Trachea midline Respiratory/Chest: Normal breath sounds, CTA, No accessory muscle use Cardiovascular: S1, S2, No murmur Abdomen/GI:Soft, Non tender, +PEG, Bowel sounds present Extremities/Musculoskeletal:normal inspection, no edema Neurologic/Psych:AAOX2, grossly no focal neurological deficits ,+Decreased hearing, mild dysarthria Skin: normal color, warm, + ecchymosis Results & Data Results & Data Vital Signs (Past 12 Hours) Vital Signs Temp Pulse Pulse Resp BP BP Pulse Ox 09/01/23 20:03 78 16 96 09/01/23 19:57 36.5 C 109 H 16 120/58 L 96 09/01/23 15:18 37.5 C 117 H 18 112/69 97 09/01/23 11:36 37.1 C 102 H 18 116/64 97 09/01/23 11:05 37.1 C 101 H 18 134/73 98 09/01/23 10:44 09/01/23 10:30 36.9 C 101 H 20 133/71 93 09/01/23 10:17 36.9 C 103 H 18 124/70 95 09/01/23 10:08 36.7 C 101 H 18 125/54 L 91 09/01/23 09:57 98 H 18 97 09/01/23 09:44 99 H 19 119/63 95 09/01/23 09:30 107 H 24 102/58 L 95 09/01/23 09:27 84 09/01/23 08:35 36.7 C 101 H 16 126/65 98 O2 Del Method O2 Flow Rate 09/01/23 20:03 Nasal Cannula 2 09/01/23 19:57 Nasal Cannula 2 09/01/23 15:18 Nasal Cannula 2 09/01/23 11:36 Room Air 09/01/23 11:05 Nasal Cannula 2 09/01/23 10:44 Nasal Cannula 2 09/01/23 10:30 Nasal Cannula 2 09/01/23 10:17 Nasal Cannula 2 09/01/23 10:08 Room Air 09/01/23 09:57 Nasal Cannula 3 09/01/23 09:44 Nasal Cannula 3 09/01/23 09:30 Nasal Cannula 3 09/01/23 09:27 09/01/23 08:35 Nasal Cannula 2 Laboratory Results Short CBC 09/01/23 Range/Units 06:47 WBC 188.16 H* (4.8-10.8) K/ul Hgb 9.0 L (12.0-16.0) g/dl Hct 29.9 L (37.0-47.0) % Plt Count 98 L (130-400) K/uL BMP 09/01/23 06:47 Sodium 135 L Potassium 4.7 Chloride 101 Carbon Dioxide 30 BUN 36 H Creatinine 0.63 Glucose 104 H Calcium 8.6
[2023-09-02 07:53] LABS: BUN Creatinine Ratio 57.6 (10-20); Calcium 8.5 mg/dl (8.6-10.3); Creatinine Clr Calc Pharmacy 40.6 ml/min; Est GFR (African American) 93.4 ml/min; Est GFR (Non-African American) 80.6 ml/min; Potassium 5.4 mmol/L (3.5-5.1)
[2023-09-02 08:20] LABS: Hematocrit (blood only) 31.7 % (37.0-47.0); Hemoglobin 9.4 g/dl (12.0-16.0); Mean Corpuscular Hemoglobin 33.5 pg (25.0-34.0); Mean Corpuscular Hgb Conc 29.7 g/dL (32.0-36.0); Mean Corpuscular Volume 112.8 fL (80.0-100.0); Mean Platelet Volume 9.5 fL (9.4-12.4); Platelet Count 107 K/uL (130-400); RDW Coefficient of Variation 19.4 % (11.5-14.5); RDW Standard Deviation 69.2 fL (36.4-46.3); Red Blood Count 2.81 M/uL (4.20-5.40); White Blood Count 189.76 K/ul (4.8-10.8)
[2023-09-02] MEDS ORDERED: STAT IV/IM STA (09:32)
--- NOTE | 2023-09-02 09:51 | Communication Note ---
Date of Service: September 02, [address] Dressing removed. Ok to use for feeds per medical manager recommendations. GI sign off. Thank you for allowing us to participate in the care of this patient. Please call with any acute changes, questions or concerns. Please see addendum below with additional recommendation from my supervising physician.
[2023-09-02] MEDS: CALCIUM GLUCONATE 10% 1,000 MG in SODIUM CHLOR 0.9% MINI-B 50 ML IV ONE (10:35)
[2023-09-02] MEDS: TUBE FEEDING WATER FLUSH PEG SCH (11:15)
[2023-09-02] MEDS: SODIUM ZIRCONIUM CYCLOSILICATE 10 GM PACKET PO SCH (12:31)
--- NOTE | 2023-09-02 16:49 | Hospitalist Progress Note ---
Date of Service September 02, 2023 Assessment & Plan (1) Pneumonia: Plan Patient is an 87 yr female with PMH of CLL, HTN, anxiety, depression, osteoarthritis, gout, GERD presented to the ER with complaint of cough & shortness of breath. Recently diagnosed of COVID 19 infection on 08/05/2023 with unremarkable CXR. Symptoms progressed with worsening cough and SOB and continued fevers. Recent infection with COVID-19 virus Likely superimposed bacterial pneumonia Immunocompromised State --Chest CT:Multifocal airspace consolidation throughout the right lung is typical for pneumonia/aspiration pneumonitis. Clinical correlation will be required and radiographic follow-up to resolution is recommended. Small pleural effusions, right larger than left. Mildly enlarged right hilar and subcarinal lymph nodes are nonspecific and likely reactive. -- Elevated procalcitonin, normal lactate levels --Blood culture negative --Sputum culture moderate normal joseph --Initially started on cefepime, vancomycin --Transitioned Zosyn 08/12 and Doxy 08/12 to Augmentin 08/16 and linezolid 08/16 per pulm recommendation. But again changed back to unasyn and iv doxy on 08/17 given NPO status d/t swallowing issues Completed antibiotics per prior provider Pulm recs appreciated. Mucomyst and hypertonic saline discontinued Continue DuoNebs, antitussives as needed Persistent leukocytosis due to CLL Continue home prednisone 5 mg daily. Continue with incentive spirometry and flutter valve. Continue supplemental oxygen as needed Plan to discharge to rehab facility as able Swallowing difficulty/dysphagia: Right cerebellar stroke Patient started having swallowing difficulty since 08/16 --MRI Brain:Punctate focus of restricted diffusion in the right cerebellum is more conspicuous than in the prior exam, compatible with a tiny acute infarct. --Head CTA:There is no hemorrhage, mass effect, or evidence of acute territorial ischemia by CT criteria. Unremarkable CT angiogram of the brain. --Neck CTA:No occlusion, hemodynamically significant stenosis, or dissection in the major cervical arteries. --ECHO: EF 60 to 65%. Mild concentric LVH. Left ventricle wall motion is normal. Grade 1 diastolic dysfunction. Mild aortic regurgitation. Mild tricuspid regurgitation. -- Appreciate neurology input --Neurology suggested dual antiplatelet therapy for 3 weeks and then transition to aspirin 81 mg daily --GI evaluation noted, S/p EGD scope 08/19 - without cause of dysphagia. 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 Patient will need to be off plavix for 5 days prior to procedure for PEG placement and confirmed with Dr Herman (Neurologist). Ok to hold plavix for procedure. Continue Aspirin. Plavix held for PEG placement Continue high dose statin Needs follow-up with neurology, GI on discharge Continue PT OT, rehab as able NG tube changed on 08/28/2023 and 08/31/23 S/P PEG tube placement on 09/01/2023 Plan to start tube feeds today Resume Plavix tomorrow Gastric polyp S/P resected and retrieved Gastric intestinal metaplasia in the antrum Follow-up pathology--pending Prediabetes HbA1c 6.3 No tight glycemic management needed given advanced age Hyperkalemia Due to tube feeds Appreciate nephrology input Monitor Restarted Lokelma Sinus tachycardia Monitor and replace electrolytes as needed Monitor Recent Infection due to COVID-19: COVID-19 infection noted initially on 05 August 2023. COVID remains positive on admission Off isolation. Elevated troponin: Likely demand ischemia from hypoxemia secondary to acute illness. Troponin elevated at 457, down trended. Patient with no chest pain. EKG with sinus tachycardia. Echo with EF of 60 to 65%, LV wall motion normal, grade 1 medical dysfunction. Continue telemetry Chronic lymphocytic leukemia: Thrombocytopenia On admission, WBC: 159 (was 129 on 07/15/23), Hgb: 11, Plt: 59 (at baseline) Receives IVIG monthly. Last was 07/16/[address] Vasquez Severe malnutrition BMI 17 Continue tube feeds Dietitian on board Other chronic medical conditions: Continue with/resume home meds as and when able Chronic anemia/chronic thrombocytopenia/hypogammaglobulinemia - Stable. Anxiety and depression: on citalopram, Lorazepam. Osteoarthritis: Continue home prednisone. DVT Px: SCDs, re- thrombocytopenia Code Status Conditional Code - would like trial of CPR/chest compression and defibrillation. Does not want advanced airway or intubation Follows with Dr Estrada for routine care Admission and Anticipated Discharge Date Admission Date: August 11, 2023 Subjective Patient is seen and examined at bedside States feeling better today Denies any pain at PEG tube site Plan to be started on tube feeds today Reports dyspnea on exertion since COVID No other complaints Family at bedside Denies any nausea, vomiting, abdominal pain, chest pain Review of Systems Review of Systems: All systems reviewed & are unremarkable except as noted in Subjective Physical Exam Physical Exam: Physical Exam: Vitals signs as noted above General Appearance:Thin, frail, elderly, no apparent distress Head: normocephalic, Atraumatic Eyes: normal inspection, EOMI Neck: supple, Trachea midline Respiratory/Chest: Normal breath sounds, CTA, No accessory muscle use Cardiovascular: S1, S2, No murmur Abdomen/GI:Soft, Non tender, +PEG, Bowel sounds present Extremities/Musculoskeletal:normal inspection, no edema Neurologic/Psych:AAOX2, grossly no focal neurological deficits ,+Decreased hearing, mild dysarthria Skin: normal color, warm, + ecchymosis Results & Data Results & Data Vital Signs (Past 12 Hours) Vital Signs Temp Pulse Pulse Resp BP Pulse Ox O2 Del Method 09/02/23 15:41 36.7 C 115 H 18 121/68 100 Nasal Cannula 09/02/23 14:02 103 H 09/02/23 11:40 36.6 C 111 H 16 115/70 99 Nasal Cannula 09/02/23 07:37 36.9 C 109 H 18 114/68 100 Nasal Cannula 09/02/23 07:27 111 H 18 94 Nasal Cannula 09/02/23 06:00 101 H O2 Flow Rate 09/02/23 15:41 1 09/02/23 14:02 09/02/23 11:40 1 09/02/23 07:37 1 09/02/23 07:27 2 09/02/23 06:00 Laboratory Results Short CBC 09/02/23 Range/Units 07:12 WBC 189.76 H* (4.8-10.8) K/ul Hgb 9.4 L (12.0-16.0) g/dl Hct 31.7 L (37.0-47.0) % Plt Count 107 L (130-400) K/uL BMP 09/02/23 07:12 Sodium 138 Potassium 5.4 H Chloride 104 Carbon Dioxide 25 BUN 38 H Creatinine 0.66 Glucose 72 Calcium 8.5 L
[2023-09-02] MEDS: NOVASOURCE RENAL 2.0 CAL 1000ML BAG PEG SCH (18:07)
[2023-09-03] MEDS: METOPROLOL TARTRATE 1 MG/ML VIAL IV STA ×2 (03:06→04:50)
[2023-09-03] MEDS: methylPREDNISolone 20 MG in SYRINGE 0 ML IV STA (03:10)
[2023-09-03] MEDS: MAGNESIUM SULFATE / D5W 1 GM/100 ML BAG IV SCH (03:14)
--- NOTE | 2023-09-03 03:19 | Communication Note ---
Date of Service: September 03, 2023 240AM Patient noted to be in respiratory distress, aspirating on tube feeds as per RN. O2 sat 70s, patient tachypneic and tachycardic. Patient later noted to have loose stools as per RN. No abdominal pain PPE Cachectic, chronically ill, hard of hearing, respiratory distress, O2 mask in place Occasional expiratory wheezes Tachycardic Chest x-ray as per my interpretation bilateral infiltrates EKG as per my interpretation. Rate 150, sinus tachycardia, LAD, LAFB, T wave flattening lateral leads WBC 365 from 189 AP Hypoxemic respiratory failure possibly from COPD exacerbation secondary to recurrent aspiration pneumonia Possible sepsis Diarrhea rule out C. difficile Worsening hyperkalemia secondary to illness Supplemental O2 Baseline ABG Solu-Medrol 1 dose now Nebs RTC Hold tube feeds Unasyn for recurrent aspiration pneumonia Stool C. difficile, Flagyl 1 dose for now given possible sepsis, vancomycin if C. difficile positive 5AM SBP noted to be 90s. Serum sodium 133, serum potassium noted to be 7.9 from 5.4. AP Hypotension secondary to hypovolemia, sepsis, possible adrenal insufficiency given history chronic prednisone Rx Worsening hyperkalemia PCU transfer IVF bolus Decadron 1 dose now for possible anginal insufficiency Calcium gluconate, bicarb, regular insulin, Lokelma for hyperkalemia Will have AM provider update Nephrology. Patient family updated of developments. Conditional CODE STATUS changed to DNR. Family to decide on possible comfort measures after seeing patient this a.m. Will relay to AM provider.
[2023-09-03] MEDS: IPRATROPIUM BROMIDE NEB SOLN 0.02% 0.5MG/2.5ML VIAL INH SCH (03:47)
[2023-09-03] MEDS: LEVALBUTEROL 1.25 MG/3 ML NEB NEB SCH (03:47)
[2023-09-03] MEDS: LORazepam 0.25 MG in SYRINGE 0.125 ML IV STA (04:01)
[2023-09-03 04:25] LABS: HCO3 ABG 17 mmol/L (19-24); PCO2 ABG 26 mmHg (35-46); PO2 ABG 55 mmHg (80-95); pH ABG 7.42 (7.35-7.45)
[2023-09-03] MEDS: metroNIDAZOLE 500 MG/100 ML BAG IV STA (04:35)
[2023-09-03 04:36] LABS: Allen Test Pos (Pos); Oxygen Saturation ABG 88.3 % (90-95)
[2023-09-03 04:43] LABS: Hematocrit (blood only) 37.4 % (37.0-47.0); Hemoglobin 9.4 g/dl (12.0-16.0); Mean Corpuscular Hemoglobin 28.8 pg (25.0-34.0); Mean Corpuscular Hgb Conc 25.1 g/dL (32.0-36.0); Mean Corpuscular Volume 114.7 fL (80.0-100.0); Mean Platelet Volume 9.1 fL (9.4-12.4); Platelet Count 175 K/uL (130-400); RDW Coefficient of Variation 23.2 % (11.5-14.5); RDW Standard Deviation 67.2 fL (36.4-46.3); Red Blood Count 3.26 M/uL (4.20-5.40)
[2023-09-03] MEDS: AMPICILLIN/SULBACTAM SOD 3,000 MG in SODIUM CHLOR 0.9% MINI-B 100 ML IV SCH (04:51)
[2023-09-03 05:08] LABS: Partial Thromboplastin Ratio 0.9; Partial Thromboplastin Time 26 Seconds (21-31)
[2023-09-03] MEDS: ALBUMIN 25% 12.5 GM/50 ML VIAL IV ONE (05:25)
[2023-09-03 05:27] LABS: BUN Creatinine Ratio 55.8 (10-20); Calcium 8.9 mg/dl (8.6-10.3); Creatinine Clr Calc Pharmacy 28.2 ml/min; Est GFR (African American) 63.3 ml/min; Est GFR (Non-African American) 54.6 ml/min; Magnesium 2.4 mg/dl (1.7-2.4); Potassium 7.9 mmol/L (3.5-5.1)
[2023-09-03] MEDS ORDERED: STAT IV/IM STA (05:27)
[2023-09-03 05:49] LABS: Anisocytosis Present; Basophils # (auto) 0.21 K/uL (0.00-0.20); Basophils % (auto) 0.1 %; Eosinophils # (auto) 0.14 K/uL (0.00-0.50); Hypochromasia Present; Immature Granulocytes % (auto) 0.4 %; Lymphocytes # (auto) 340.23 K/uL (1.20-3.40); Lymphocytes % (auto) 93.2 %; Macrocytosis Present; Monocytes # (auto) 16.05 K/uL (0.11-0.59); Monocytes % (auto) 4.4 %; Neutrophils # (auto) 7.17 K/uL (1.40-6.50); Neutrophils % (auto) 1.9 %; Polychromasia 1+
[2023-09-03] MEDS: DEXTROSE 50% 50 ML SYRINGE IV ONE (05:55)
[2023-09-03] MEDS: INSULIN HUMAN REGULAR PER UNIT 10 UNITS in SYRINGE 9.9 ML IV STA (05:57)
[2023-09-03] MEDS: SODIUM BICARB 8.4% INJ 50 MEQ/50 ML SYR IV STA (06:01)
[2023-09-03] MEDS: CALCIUM GLUCONATE 10% 1,000 MG in SODIUM CHLOR 0.9% MINI-B 50 ML IV ONE (06:06)
[2023-09-03] MEDS: SODIUM CHLORIDE 0.9% 1,000 ML IV ONE ×2 (06:36→07:39)
[2023-09-03] MEDS: SODIUM ZIRCONIUM CYCLOSILICATE 10 GM PACKET GT STA (06:39)
--- NOTE | 2023-09-03 06:54 | XRay Report ---
XR chest 1V portable CLINICAL HISTORY: Shortness of breath. COMPARISON STUDY: Chest CT August 14, 2023. Chest radiograph August 19, 2023. FINDINGS: Right shoulder arthroplasty, left greater humeral joint osteoarthritis and bilateral breast calcifications are incidentally noted. There is no pneumothorax or pleural effusion. There is no rad iographic evidence for pulmonary edema. Cardiomediastinal silhouette is stable. Right upper lobe airs pace opacity persists. There are mild persistent bilateral lower lobe opacities. IMPRESSION: Persistent multifocal airspace opacities. Pneumonia is favored however continued radiogr aphic follow-up to ensure resolution is recommended. ACT 112: Negative or not required by law. Electronically signed by: Landen Zarco M.D. 09/03/2023 6:52 AM
[2023-09-03] MEDS: dexAMETHasone 4 MG in SYRINGE 0 ML IV ONE (07:11)
[2023-09-03] MEDS: PROMETHAZINE HCL 6.25 MG in SODIUM CHLORIDE 0.9% 50 ML IV STA (07:11)
[2023-09-03] MEDS ORDERED: LORazepam 0.25 MG in SYRINGE 0.25 ML IV PRN (07:49)
[2023-09-03] MEDS ORDERED: ACETAMINOPHEN 1,000 MG/100 ML VIAL IV PRN (07:52)
[2023-09-03] MEDS: SODIUM CHLORIDE 0.9% 1,000 ML IV SCH (08:07)
[2023-09-03] MEDS ORDERED: GLYCOPYRROLATE 0.2 MG/ML VIAL IV PRN (08:34)
[2023-09-03] MEDS ORDERED: MoRPHine SULFATE 2 MG/ML CARP IV PRN (08:34)
[2023-09-03] MEDS ORDERED: ONDANSETRON 4 MG OD TAB SL PRN (08:34)
[2023-09-03] MEDS ORDERED: ONDANSETRON INJ 2 MG/ML 2 ML VIAL IV PRN (08:34)
[2023-09-03] MEDS ORDERED: ATROPINE SULFATE 1% OP SOLN 5 ML BTL SL PRN (08:34)
[2023-09-03] MEDS ORDERED: LORazepam 0.5 MG TAB PO PRN (08:34)
[2023-09-03] MEDS ORDERED: MoRPHine SULFATE 10 MG/0.5 ML UDP PO PRN (08:34)
--- NOTE | 2023-09-03 08:38 | Communication Note ---
Date of Service: September 03, 2023 Patient clinically deteriorated overnight. Aspirated on tube feeds and developed significant respiratory distress. Patient's oxygen saturation dropped to 70s per record. Chest x-ray showed persistent multifocal pneumonia. Patient had worsening leukocytosis, blood work suggestive of significant hyperkalemia 7.9, anion gap metabolic acidosis with bicarb of 15. Given significant deterioration, multiple comorbidities and dysphagia with aspiration issues with tube feeds, patient and patient's family preferred to be transition to comfort measures only. CODE STATUS confirmed to be DNI DNR. Patient and patient's daughter agrees with transitioning to comfort measures only, palliative care was involved as well.
--- NOTE | 2023-09-03 08:39 | Hospitalist Progress Note ---
Date of Service September 03, 2023 Assessment & Plan (1) Pneumonia: Plan Patient is an 87 yr female with PMH of CLL, HTN, anxiety, depression, osteoarthritis, gout, GERD presented to the ER with complaint of cough & shortness of breath. Recently diagnosed of COVID 19 infection on 08/05/2023 with unremarkable CXR. Symptoms progressed with worsening cough and SOB and continued fevers. 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 and focal atypia S/P polypectomy Prediabetes Hyperkalemia Sinus tachycardia Chronic lymphocytic leukemia Thrombocytopenia Severe malnutrition Chronic anemia/chronic thrombocytopenia/hypogammaglobulinemia Anxiety and depression Osteoarthritis Given clinical deterioration with multiple comorbidities, patient transition to comfort measures only Palliative care on board Continue comfort measures Patient and family agrees with current management Code Status DNR/DNI Admission and Anticipated Discharge Date Admission Date: August 11, 2023 Subjective Patient is seen and examined at bedside States feeling better today Denies any pain at PEG tube site Plan to be started on tube feeds today Reports dyspnea on exertion since COVID No other complaints Family at bedside Denies any nausea, vomiting, abdominal pain, chest pain Review of Systems Review of Systems: Other Physical Exam Physical Exam: Physical Exam: Vitals signs as noted above General Appearance:Thin, frail, elderly, no apparent distress Head: normocephalic, Atraumatic Eyes: normal inspection, EOMI Neck: supple, Trachea midline Respiratory/Chest: Normal breath sounds, CTA, No accessory muscle use Cardiovascular: S1, S2, No murmur Abdomen/GI:Soft, Non tender, +PEG, Bowel sounds present Extremities/Musculoskeletal:normal inspection, no edema Neurologic/Psych:AAOX2, grossly no focal neurological deficits ,+Decreased hearing, mild dysarthria Skin: normal color, warm, + ecchymosis Results & Data Results & Data Vital Signs (Past 12 Hours) Vital Signs Temp Pulse Pulse Pulse Resp BP BP 09/03/23 07:40 128 H 30 H 09/03/23 06:32 09/03/23 06:27 135 H 28 H 09/03/23 06:03 123 H 90/53 L 09/03/23 05:05 127 H 31 H 09/03/23 04:43 145 H 34 H 105/67 09/03/23 04:07 140 H 36 H 157/74 H 09/03/23 03:27 123 H 34 H 09/03/23 03:25 123 H 33 H 146/80 H 09/03/23 03:21 123 H 146/80 H 09/03/23 03:06 153 H 161/108 H 09/03/23 02:59 36.6 C 153 H 31 H 09/02/23 23:46 111 H 09/02/23 22:26 36.5 C 129 H 20 136/73 09/02/23 21:00 BP Pulse Ox O2 Del Method O2 Flow Rate 09/03/23 07:40 74/43 L 91 Oxymask 11 09/03/23 06:32 79/52 L 09/03/23 06:27 87/52 L 96 Oxymask 8 09/03/23 06:03 09/03/23 05:05 95/60 L 97 Oxymask 7 09/03/23 04:43 98 Oxymask 7 09/03/23 04:07 90 Oxymask 7 09/03/23 03:27 90 Oxymask 7 09/03/23 03:25 90 Nasal Cannula 7 09/03/23 03:21 09/03/23 03:06 09/03/23 02:59 78 L Nasal Cannula 1 09/02/23 23:46 09/02/23 22:26 96 Nasal Cannula 1 09/02/23 21:00 Nasal Cannula 1 Laboratory Results Short CBC 09/03/23 Range/Units 04:17 WBC 365.20 H* D (4.8-10.8) K/ul Hgb 9.4 L (12.0-16.0) g/dl Hct 37.4 (37.0-47.0) % Plt Count 175 D (130-400) K/uL BMP 09/03/23 04:17 Sodium 133 L Potassium 7.9 H* D Chloride 101 Carbon Dioxide 15 L BUN 53 H Creatinine 0.95 Glucose 223 H Calcium 8.9 Cardiac Enzymes 09/03/23 Range/Units 04:17 Total Creatine Kinase 19 L (26-192) U/L
--- NOTE | 2023-09-03 09:51 | Palliative Care Consultation ---
Date of Consultation September 03, 2023 Assessment & Plan (1) Dyspnea and respiratory abnormalities: (2) Weakness generalized: (3) Anxiety and depression: (4) Failure to thrive in adult: (5) Aspiration into respiratory tract: Encounter type: subsequent encounter Qualified Code(s): T17.908D - Unspecified foreign body in respiratory tract, part unspecified causing other injury, subsequent encounter (6) Discussion about advance care planning held with family member: A Face to Face ACP discussion was held with Isis and her daughter at bedside from 1230-115pm With consent and voluntary participation we discussed the events to date through this admission and within the greater context of her pre existing comorbidities. In spite of escalating therapies, she is declining. We discussed the role of ARON: reviewed artificial nutrition and hydration (ARON) were originally developed to provide short-term support for patients who were acutely ill. For patients nearing/transitioning to EOL, ARON is unlikely to prolong life in addition to which researchers have found that ARON often leads to complications in patients nearing the end of life. Patients with advanced, life- limiting illness often lose the ability to eat and drink and/or interest in food and fluids. Like other medical interventions, it should be evaluated by weighing its benefits and burdens in light of the patient's clinical circumstances and goals of care. ARON may offer benefits when administered in the setting of acute, reversible illness, or as a component of chronic disease management, when the patient can appreciate the benefits of the treatment and significant burdens are not disproportionate. Near the end of life, some widely assumed benefits of ARON, such as alleviation of thirst, may be achieved by less invasive measures including good mouth care or providing ice chips. (Tomas CORDERO, Charlotte ALFAROK, Arik M. after PEG: Results of the National Confidential Enquiry into Patient Outcome and . Gastrointest Endosc. 2008;68:223-227 andHumaira E, Sara D, Tonya S, et al. Parenteral hydration in patients with advanced cancer: A multicenter, double-blind, placebo-controlled randomized trial. J Clin Oncol. 2013;31:111-118.) They have elected to stop ARON. We discussed her resp symptoms and pain. She declines escalation to opioids and wants to stay on Tylenol. We discussed option to have prn meds for escalation if needed and she agreed. We discussed stopping monitoring and face mask oxygen, as pt has been removing the face mask at times. Daughter wants the monitor to stay on, feels it is a source of comfort. Patient had no strong feelings either way. For now will continue monitoring but if she loses consciousness/is no longer interactive, please dc all monitoring and liberate pt from wires and O2 sensors. I counseled daughter about the emotional trauma that can linger if time is spent watching the pulse ox numbers, as they will not stay "normal" in the dying process. I encouraged her to focus on being present with her mom but not hyperacute monitoring of numbers. We discussed changes pt may move through in the dying process including but not limited to sleeping more, disorientation when awake, restlessness, diminished senses/inability to respond to stimulus although ability to be aware of them remains intact longer, changes in body temperatures, skin changes/mottling/cyanosis, respiratory pattern changes, oral secretions. Family verbalized understanding. The goal is to assure a peaceful . Dtr asked to speak outside pt room and at that time states her oldest brother resides in [facility] and has asked about coming in tomorrow. Dtr wants to know if we "can do things to extend her life/keep her alive until my brother gets here." Reviewed she is in a dying trajectory, I anticipate likely hours to days, I do not believe there is much we can to to "keep her alive" at this junction and pt is very clear in her wish for DNR/DNI which I advised we will honor and also, I would not offer intubation to a terminally ill patient at this final chapter of life, because they will not be able to liberate from vent to have meaningful interaction with family and we would include more harm and distress. I encourag ed her to tell brother to come now if he wants the chance to be here with pt and if that is important to him. She notes it was her younger brother who told him not to come stating they would need his help more later than right now however oldest brother does want to be with pt and try to say goodbye in person. She plans to call older brother and encourage him to come. (7) Palliative care by specialist: Met with pt and/or family. Provided overview of Palliative Medicine, a subspecialty that provides specialized medical care for people living with a serious illness by offering a focus on quality of life. Palliative Medicine is often conflated with hospice: I advised patient/family that Palliative and hospice can be partners but we are not the same. It is important to understand the difference so that we may be informed, and not afraid. Palliative Medicine works to improve QOL through reduction of symptom burden/more control over their illness, for both the patient and family. Palliative medicine clinicians are board certified, specially-trained and another member of the patient's medical care team. We often provide an extra layer of support because our care is based on the needs of the patient, not the prognosis; as such, it's appropriate at any age/advancing stage of a serious illness and can be provided along with curative treatment. Palliative Medicine clinicians are also trained in advanced communication methodologies, to facilitate complex discussions about advanced illness planning, which are needed to help assure that the treatment choices match the patient's goals, aka delivering Goal Concordant care. Finally, we discussed that hospice is a visiting nurse service that focuses on care delivered at the very end of life for patients with terminal illness, with life expectancy less than 6 month. (8) Non-ST elevation VT (NSTEMI): (9) Sepsis: Sepsis acute organ dysfunction status: with acute organ dysfunction Sepsis type: sepsis due to unspecified organism Severe sepsis acute organ dysfunction type: encephalopathy Severe sepsis shock status: without septic shock Qualified Code(s): A41.9 - Sepsis, unspecified organism; R65.20 - Severe sepsis without septic shock; G93.41 - Metabolic encephalopathy (10) COVID-19: (11) Chronic lymphocytic leukemia: (12) Hypogammaglobulinemia, acquired: (13) Stroke: CVA mechanism: unspecified Qualified Code(s): I63.9 - Cerebral infarction, unspecified Plan * 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 Would suggest this be stopped when pt not awake/interactive * PLEASE DO NOT ESCALATE oxygen therapy. For patients at the end of life, oxygen delivered by a nasal cannula provides no additional symptomatic benefit for relief of refractory dyspnea in patients with life-limiting illness compared with room air: there's a point at which that the oxygen level gets so low that it's no longer compatible with life. By providing supplemental oxygen, the dying process will be unnecessarily prolonged. Please use less burdensome but more effective strategies such as comfort care meds, oscillating fan, massage, repositioning, etc. (Carolyn AP, Keerthi CF, Johnathon PA, et al. Effect of palliative oxygen versus room air in relief of breathlessness in patients with refractory dyspnoea: a double-blind, randomised controlled trial. Lancet. 2010;376(5669):673-793. doi:10.1016/B0603-3145(70)49902-4) * We spoke about how there is data that demonstrates an increased risk of among women and patients with malignancy which indicate that these patients could benefit from earlier referral for PEG (Maryann K, Erhectoron A, No C, Cristo D. Mortality and complications after percutaneous endoscopic gastrostomy: a retrospective multicentre study.BMC Gastroenterol. 202;22(1):361. Published 2021Jan 31. doi:10.1186/[id number]) however her symptom onset was abrupt and likely stroke mediated leaving the earlier intervention option not feasible. We also spoke about how we found that age, diabetes, heart failure, C-reactive protein and body mass index all impact the risk of adverse outcomes. as well data showing there can be early post-PEG mortality is highis post stroke dysphagia (Patita M, Gerard G, Grunho M, Rick CA, Sidhu J. Endoscopic gastrostomy for nutritional support in post- stroke dysphagia. Nutr Hosp. 2020;38(6):2648-5276. doi:10.98863/nh.23341) and how older age, high BUN, low prognostic nutritional index, and high controlling nutritional status (CONUT) score as factors associated with early after PEG with a recent study demonstrating high CONUT score remained an independent prognostic factor (Sharron Y, Marleni I, Shigoka H, Isabelle T. Preprocedural control of nutritional status score and prediction of early after percutaneous endoscopic gastrostomy.JGH Open. 2022;7(7):504-508. Published 2022Jan 15. doi:10.1002/jgh3.48527) The CONUT score has also been show to be an independent prognostic indicator of poor outcomes for patients with stage III-IV NSCLC and can likely be applied across advanced cancer spectrums (Hayden Y, Jacob FF, Jackie DonaldQ, Ko HX. Controlling Nutritional Status (CONUT) score is a prognostic marker in III-IV NSCLC patients receiving first- line chemotherapy.BMC Cancer. 2023;23(1):225. Published 2022Sep 12. doi:10.1186/[id number]-x) Thank you for allowing us to participate in the ongoing care of this patient. Please don't hesitate to call or page with any additional concerns. Dr. Guillermina Richards [facility] Director, Palliative Care History of Present Illness Reason for Consultation: On 09/03/23 @ 07:58 Jonathan Holbrook Wrote To Guillermina Richards Please address goals of care Attending Physician: Jonathan Holbrook MD History of Present Illness Mrs. Adams is an 87yo female admitted 08/11/23 with c/o dyspnea and hypoxia with cough who was known to have COVID + six days prior to this ED visit (was also in ED 08/05/23 during which time COVID was discovered, she was not a candidate for paxlovid) She has hx CLL followed by Dr. Vasquez at [facility], last chemo Jul 2023. [facility] EMR link notes reviewed (see below) CLL complicated by development of a new nasal mass for which she is supposed to start RT On arrival she was hypotension and tachycardic CXR revealed RUL PNA with hilar prominence suggestive of LAD, she also has retrocardiac densities which may be atelectasis vs pneumonitis. She was started on Zosyn and vanco - Transitioned Zosyn 08/12 and Doxy 08/12 to Augmentin 08/16 and linezolid / per pulm recommendation. But again changed back to Unasyn and iv doxy on 08/17 given NPO status d/t swallowing issues Troponin elevated - suspect demand ischemia, Sinus tachy+ on monitors Echo 08/12/23 showed EF 60-65, ild LVH, grade 1 diast dysfxn, mild Ao regurg, mild TR, doppler did not suggest PH Palliative Medicine has been consulted for "goals of care." PMH: CLL, hypogammaglobulinemia, HTN, anxiety, depression, osteoarthritis, gout, GERD ADmitted for Sepsis POA secondary to pneumonia, COVID, demand ischemia rising troponin Admission complicated by dysphagia reported to have abruptly started 08/16/23 evening with GI eval - s/p EGD done 08/19/23 showing tortuous esophagus, pooled secretions in the upper pharynx: "Findings: The examined esophagus appeared normal. The Z-line appeared regular. The examined stomach appeared normal. The duodenal bulb and second portion of the duodenum appeared normal. Impression: - Normal esophagus. - Z-line regular. - Normal stomach. - Normal duodenal bulb and second portion of the duodenum. Recommendation: - Return to the floor. - No intrinsic esophageal abnormality to explain her dysphagia. - Given the vfs results and also the amount of secretions noted in the upper pharynx- this is likely oropharyngeal dysphagia." Another EGD was done 09/01/22 at which time a PEG was placed:: "Findings: The examined esophagus was normal. A single 6 mm sessile polyp with no stigmata of recent bleeding was found at the pylorus. The polyp was removed with a cold snare. Resection and retrieval were complete. Verification of patient identification for the specimen was done by the physician and nurse using the patient's name and date. Localized mucosal changes were found in the gastric antrum. The entire examined stomach was normal. The patient was placed in the supine position for PEG placement. The stomach was insufflated to appose gastric and abdominal rosa. A site was located in the body of the stomach with excellent transillumination and manual external pressure for placement. The abdominal wall was marked and prepped in a sterile manner. The area was anesthetized with 2 mL of 1% lidocaine. The trocar needle was introduced through the abdominal wall and into the stomach under direct endoscopic view. A snare was introduced through the endoscope and opened in the gastric lumen. The guide wire was passed through the trocar and into the open snare. The snare was closed around the guide wire. The endoscope and snare were removed, pulling the wire out through the mouth. A skin incision was made at the site of needle insertion. The externally removable 20 Fr Avanos KINDRA gastrostomy tube was lubricated. The G-tube was tied to the guide wire and pulled through the mouth and into the stomach. The trocar needle was removed, and the gastrostomy tube was pulled out from the stomach through the skin. The external bumper was attached to the gastrostomy tube, and the tube was cut to remove the guide wire. The final position of the gastrostomy tube was confirmed by relook endoscopy, and skin marking noted to be 2.5 cm at the external bumper. The final tension and compression of the abdominal wall by the PEG tube and external bumper were checked and revealed that the bumper was moderately tight and mildly deforming the skin. The feeding tube was capped, and the tube site cleaned and dressed. The duodenal bulb and second portion of the duodenum were normal. Impression: - Normal esophagus. - A single gastric polyp. Resected and retrieved. 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 - Normal duodenal bulb and second portion of the duodenum. - An externally removable PEG placement was successfully completed. Recommendation: - [facility]. - Await pathology results. - Please follow the post-PEG recommendations including: Nutrition consult for formula and volume, dry dressing only, NPO x4 hrs then water today, may use PEG tomorrow for feedings after being checked by GI physician." She also had a stroke workup and neuro eval: "Possible acute to subacute right cerebellar punctate infarct per MRI review - Agree with imaging report that an infarct cannot be ruled out. Notably neurological exam appears without evidence of dysmetria or dysdiadochokinesia. There is ongoing concern for dysphagia- possible in relation to area of concern for possible stroke." MRI brain w/ tiny rt cerebellar stroke Head CTA:There is no hemorrhage, mass effect, or evidence of acute territorial ischemia by CT criteria. Unremarkable CT angiogram of the brain. --Neck CTA:No occlusion, hemodynamically significant stenosis, or dissection in the major cervical arteries She had further acute decline overnight with night float noting: "Hypotension secondary to hypovolemia, sepsis, possible adrenal insufficiency given history chronic prednisone Rx Worsening hyperkalemia PCU transfer IVF bolus Decadron 1 dose now for possible anginal insufficiency Calcium gluconate, bicarb, regular insulin, Lokelma for hyperkalemia Will have AM provider update Nephrology. Patient family updated of developments. Conditional CODE STATUS changed to DNR. Family to decide on possible comfort measures after seeing patient this a.m. Will relay to AM provider." Data review: CT chest 08/14/2023: Patchy opacities appreciated in the right upper lobe as well as right lower lobe. Dependent atelectasis bilateral lower lobe. Cardiomegaly with small bilateral pleural effusion. Right hilar lymphadenopathy. 2D echo 08/12/2023: EF 60-65%, mild concentric LVH, grade 1 diastolic dysfunction, mild TR, mild AR, RV normal in size and function Spirometry 01/20/2020: No obstructive lung dysfunction, normal flow volume loop, bronchodilator test not done. FVC 2.03 L, 81%, FEV1 1.82 L, 101%, FEV1/FVC 90% No obstructive lung dysfunction, normal flow volume loop, bronchodilator test not done. FVC 2.03 L, 81%, FEV1 1.82 L, 101%, FEV1/FVC 90% Allergies Allergy/AdvReac Type Severity Reaction Status Date / Time nitrofurantoin Allergy Unknown UNKNOWN Verified 08/19/23 08:26 PER GMG oxaprozin Allergy Unknown UNKNOWN Verified 08/19/23 08:26 PER [facility]G oxybutynin Allergy Unknown UNKNOWN Verified 08/19/23 08:26 PER [facility]G ciprofloxacin [From Cipro] AdvReac Intermediate Confusion Verified 08/19/23 08:26 melatonin AdvReac Intermediate OPPOSITE Verified 08/19/23 08:26 AFFECT mirabegron AdvReac Intermediate Hypertensio Verified 08/19/23 08:26 n Home Medications Medication Instructions Recorded Confirmed Type calcium citrate 250 mg 2 tab PO QAM 05/18/18 08/11/23 History calcium-vitamin D3 5 mcg (200 unit) tablet citalopram 10 mg tablet 10 mg PO QAM 05/18/18 08/11/23 History diclofenac sodium 1 % topical gel 2 g topical QID PRN Pain 02/20/21 08/11/23 History cyanocobalamin (vitamin B-12) 1,000 mcg IM MONTHLY 01/14/22 08/11/23 History 1,000 mcg/mL injection solution ammonium lactate 12 % topical cream 1 applic topical DIRECTED PRN 08/16/22 08/11/23 History dry skin,arms and legs prednisone 5 mg tablet 5 mg PO DAILY 01/18/23 08/11/23 History polyethylene glycol 3350 17 gram 17 g PO DAILY PRN constipation #30 01/19/23 08/11/23 Rx oral powder packet (Miralax) ea sennosides 8.6 mg-docusate sodium 1 tab PO QAM #30 tabs 01/19/23 08/11/23 Rx 50 mg tablet (Senokot-S) fluticasone propionate 50 2 spray intranasal DAILY 08/05/23 08/11/23 History mcg/actuation nasal spray,suspension loratadine 10 mg tablet (Claritin) 10 mg PO DAILY PRN Congestion 08/05/23 08/11/23 History lorazepam 0.5 mg tablet 0.5 mg PO HS 08/05/23 08/11/23 History multivitamin with minerals 1 tab PO DAILY 08/05/23 08/11/23 History sodium chloride 0.65 % nasal spray 1 spray intranasal DIRECTED PRN 08/05/23 08/11/23 History aerosol (Saline Nasal) Congestion benzonatate 100 mg capsule 100 mg PO TID PRN cough #30 caps 08/06/23 08/11/23 Rx Patient History Medical History (Updated 09/03/23 @ 10:15 by Guillermina Richards DNP) Palliative care by specialist Discussion about advance care planning held with family member Failure to thrive in adult Aspiration into respiratory tract Dyspnea and respiratory abnormalities Weakness generalized Anxiety and depression Symptomatic anemia Anemia REZA (generalized anxiety disorder) Fracture of spine Closed tibia fracture Closed rib fracture Stress reaction GERD (gastroesophageal reflux disease) Diverticulosis of colon Osteoporosis Osteoarthritis Hypogammaglobulinemia, acquired History of squamous cell carcinoma Dyslipidemia Chronic lymphocytic leukemia Surgical History History of orthopedic surgery Status post hysterectomy Family History Other Cancer Diabetes Heart disease Social History Smoking Status: Never smoker Second Hand Exposure: No; Do You Dip or Chew Tobacco: No; Hx Alcohol Use: Yes Alcohol type: beer Hx Substance Use: No Preferred Language: Cambodian Communication Ability: Effective Communication Ability Comment: uses i-pad Keyboard Operator Required: No Beliefs That Will Affect Care: Anglican marital status: / Current Living Situation: Alone Current Living Situation Comment: personal care givers Feels Safe at Home: Yes Assistive Devices: Cane, Stair Lift and Walker Review of Systems Review of Systems: Unobtainable due to cognitive status, Unobtainable due to reduced consciousness and Other (weakness and fatigue) Physical Exam Physical Exam: Frail, critically ill appearing cachectic female Lying in bed, semi reclined, +face mask oxygen in place Bitemp wasting Facial ecchymoses at nasal bridge PERRLA +[place], uses assistive AI Live Transcripti on on tablet to communicate Neck supple Increased resp effort with use of accessory muscles and conversational dyspnea Diminished breath sounds, crackles with some scatt rhonchi bilat. No wheezing appreciated. Tachy s1s2, +murmurs RLSB, LLSB Abd distended, BS+, PEG in place, no tenderness when palpated Generalized weakness, does not move extremities very much Skin pale, cool. BLE with hyperpigmentation of CLL, soles of feet and toes are cool, there is mild mottling to both soles. Legs remain warm. +Scattered ecchymoses AAO Cooperative with exam Results & Data Vital Signs (Past 12 Hours) Vital Signs Temp Pulse Pulse Pulse Resp BP BP 09/03/23 07:40 128 H 30 H 09/03/23 06:32 09/03/23 06:27 135 H 28 H 09/03/23 06:03 123 H 90/53 L 09/03/23 05:05 127 H 31 H 09/03/23 04:43 145 H 34 H 105/67 09/03/23 04:07 140 H 36 H 157/74 H 09/03/23 03:27 123 H 34 H 09/03/23 03:25 123 H 33 H 146/80 H 09/03/23 03:21 123 H 146/80 H 09/03/23 03:06 153 H 161/108 H 09/03/23 02:59 36.6 C 153 H 31 H 09/02/23 23:46 111 H 09/02/23 22:26 36.5 C 129 H 20 136/73 BP Pulse Ox O2 Del Method O2 Flow Rate 09/03/23 07:40 74/43 L 91 Oxymask 11 09/03/23 06:32 79/52 L 09/03/23 06:27 87/52 L 96 Oxymask 8 09/03/23 06:03 09/03/23 05:05 95/60 L 97 Oxymask 7 09/03/23 04:43 98 Oxymask 7 09/03/23 04:07 90 Oxymask 7 09/03/23 03:27 90 Oxymask 7 09/03/23 03:25 90 Nasal Cannula 7 09/03/23 03:21 09/03/23 03:06 09/03/23 02:59 78 L Nasal Cannula 1 09/02/23 23:46 09/02/23 22:26 96 Nasal Cannula 1 Laboratory Results data reviewed see HPI Diagnostic Findings data reviewed see HPI PG Care Time/CCT Total # of Minutes Spent Total Time Spent with Patient: Total time spent is greater than 50% in coordination of care (as documented) at patient's floor/unit and/or counseling patient: I spent 100 minutes overall addressing this case: 15 min in medical data review/discussion with referring provider(s) and/or preparation for the visit 15 min in direct interaction with the patient/exam 45 min in Advance Care Planning/Goals of Care discussions as detailed above in note (must be >16min) 10 min in subsequent review and synthesis of assessment and plan 15 min communicating with other providers regarding the patient's case: Advanced Care Planning 75632 Advanced Care Planning 30 Min 96088 Advanced Care Planning Additional 30 [place] [address] IN/OBS CONSULT LVL 5,80M Patient Type New History Comprehensive Exam Comprehensive Medical Decision Making High Complexity Diagnoses Dyspnea and respiratory abnormalities R06.00; R06.89 Weakness generalized R53.1 Anxiety and depression F41.9; F32.A Failure to thrive in adult R62.7 Aspiration into respiratory tract, subsequent encounter T17.909D Encounter type: subsequent encounter Discussion about advance care planning held with family member Z71.0 Palliative care by specialist Z51.5 Non-ST elevation VT (NSTEMI) I21.4 Sepsis with encephalopathy without septic shock, due to unspecified organism A41.9; R65.20; G93.41 Sepsis acute organ dysfunction status: with acute organ dysfunction Sepsis type: sepsis due to unspecified organism Severe sepsis acute organ dysfunction type: encephalopathy Severe sepsis shock status: without septic shock COVID-19 U07.1 Chronic lymphocytic leukemia C91.10 Hypogammaglobulinemia, acquired D80.1 Cerebrovascular accident (CVA), unspecified mechanism I63.9 CVA mechanism: unspecified Additional Codes Advanced Care Planning - [id number] Advanced Care Planning 30 Min: 28840 Advanced Care Planning 30 Min ([id number]) Advanced Care Planning - 29994 Advanced Care Planning Additional 30 Min: 42383 Advanced Care Planning Additional 30 Min ([id number])
--- NOTE | 2023-09-03 15:06 | Electrocardiogram Report ---
Test Reason : Blood Pressure : / mmHG Vent. Rate : 151 BPM Atrial Rate : 151 BPM P-R Int : 130 ms QRS Dur : 076 ms QT Int : 260 ms P-R-T Axes : 058 -52 081 degrees QTc Int : 412 ms Poor data quality, interpretation may be adversely affected Sinus tachycardia Left axis deviation Septal infarct , age undetermined Abnormal ECG When compared with ECG of 14-AUG-2023 06:34, Vent. rate has increased BY [address] now depressed in Lateral leads Nonspecific T wave abnormality has replaced inverted T waves in Anterior leads Nonspecific T wave abnormality now evident in Lateral leads Confirmed by Maykel Albarado ([id number]) on 09/03/2023 3:06:22 PM Referred By: REFERRED SELF Confirmed By:Maykel Albarado
[2023-09-03] MEDS: MoRPHine SULFATE 2 MG/ML CARP IV PRN (16:38)
[2023-09-03] MEDS: LORazepam 0.5 MG in SYRINGE 0.25 ML IV PRN (22:31)
[2023-09-04] MEDS ORDERED: methylPREDNISolone 40 MG in SYRINGE 0 ML IV SCH (09:00)
[2023-09-04] MEDS ORDERED: predniSONE 5 MG TAB PO SCH (09:00)
[2023-09-04] MEDS: MoRPHine SULFATE 4 MG/ML 1 ML CARP\\VIAL ONE (10:15)
--- NOTE | 2023-09-04 15:34 | Hospitalist Progress Note ---
Date of Service September 04, 2023 Assessment & Plan (1) Pneumonia: Plan Patient is an 87 yr female with PMH of CLL, HTN, anxiety, depression, osteoarthritis, gout, GERD presented to the ER with complaint of cough & shortness of breath. Recently diagnosed of COVID 19 infection on 08/05/2023 with unremarkable CXR. Symptoms progressed with worsening cough and SOB and continued fevers. 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 and focal atypia S/P polypectomy Prediabetes Hyperkalemia Sinus tachycardia Chronic lymphocytic leukemia Thrombocytopenia Severe malnutrition Chronic anemia/chronic thrombocytopenia/hypogammaglobulinemia Anxiety and depression Osteoarthritis Given clinical deterioration with multiple comorbidities, patient transition to comfort measures only Palliative care on board Continue comfort measures Patient and family agrees with current management Adjust medications as needed Code Status DNR/DNI Admission and Anticipated Discharge Date Admission Date: August 11, 2023 Subjective Patient is seen and examined at bedside Obtunded Unable to obtain any history Discussed with patient's family at bedside No distress on exam Review of Systems Review of Systems: Unobtainable due to reduced consciousness Physical Exam Physical Exam: Physical Exam: Vitals signs as noted above General Appearance:Thin, frail, elderly, no apparent distress, obtunded Head: normocephalic, Atraumatic Eyes: normal inspection, EOMI Neck: supple, Trachea midline Respiratory/Chest: Normal breath sounds, CTA, No accessory muscle use Cardiovascular: S1, S2, No murmur, tachycardia Abdomen/GI:Soft, Non tender, +PEG, Bowel sounds present Extremities/Musculoskeletal:normal inspection, no edema Neurologic/Psych: Unable to perform neurological exam Skin: normal color, warm, + ecchymosis Results & Data Results & Data Vital Signs (Past 12 Hours) Vital Signs O2 Del Method O2 Flow Rate 09/04/23 14:00 Nasal Cannula 2
[2023-09-04] MEDS: MoRPHine SULFATE 4 MG/ML 1 ML CARP\\VIAL IV PRN (15:52)
[2023-09-05] MEDS: GLYCOPYRROLATE 0.2 MG/ML VIAL IV PRN (09:05)
[2023-09-05] MEDS ORDERED: STAT IV Infusion **Titration per Protocol STA (11:59)
[2023-09-05] MEDS ORDERED: MoRPHine SULFATE 4 MG/ML 1 ML CARP\\VIAL IV PRN (12:00)
[2023-09-05] MEDS ORDERED: PALONOSETRON 0.25 MG in SYRINGE 0 ML IV SCH (12:15)
[2023-09-05] MEDS: MoRPHine SULF/NSS 100 MG/100 ML BAG IV SCH (13:13)
[2023-09-05] MEDS: MoRPHine SULFATE 4 MG/ML 1 ML CARP\\VIAL IV PRN (13:50)
--- NOTE | 2023-09-05 13:51 | Hospitalist Progress Note ---
Date of Service September 05, 2023 Assessment & Plan (1) Pneumonia: Plan Patient is an 87 yr female with PMH of CLL, HTN, anxiety, depression, osteoarthritis, gout, GERD presented to the ER with complaint of cough & shortness of breath. Recently diagnosed of COVID 19 infection on 08/05/2023 with unremarkable CXR. Symptoms progressed with worsening cough and SOB and continued fevers. Course complicated by aspiration pneumonia after attempt of PEG feeding. Course continued to decline. 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 and focal atypia S/P polypectomy Prediabetes Hyperkalemia Sinus tachycardia Chronic lymphocytic leukemia Thrombocytopenia Severe malnutrition Chronic anemia/chronic thrombocytopenia/hypogammaglobulinemia Anxiety and depression Osteoarthritis Given clinical deterioration with multiple comorbidities, patient transition to comfort measures only Palliative care on board Continue comfort measures Patient and family agrees with current management Adjust medications as needed Code Status DNR/DNI Admission and Anticipated Discharge Date Admission Date: August 11, 2023 Subjective Patient evaluated at bedside gasping breathing, doesn't respond this morning, some grimacing Physical Exam Constitutional: hypotensive, appears to be in stages of dying Respiratory: gasping breath, poor air movement Skin: dusky ross discoloration Results & Data Results & Data Vital Signs (Past 12 Hours) Vital Signs O2 Del Method O2 Flow Rate 09/05/23 07:46 Nasal Cannula 2
--- NOTE | 2023-09-05 15:48 | Palliative Care Progress Note ---
Date of Service September 05, 2023 Assessment & Plan (1) Dyspnea and respiratory abnormalities: Plan: pt has used 12mg IV MS in past 24 hr without relief of pain and dyspnea she is mouth breathing with exam c/w resp distress Will begin MS infusion 1mg per hour and use MS 2mg IV q15min for breakthru pain and dyspnea (2) Cancer related pain: Plan: see above (3) Weakness generalized: (4) Failure to thrive in adult: (5) Palliative care by specialist: (6) Discussion about advance care planning held with family member: Plan: Met with dtr face to face at bedside for 25min Discussed changes pt may move through in the dying process including but not limited to sleeping more, disorientation when awake, restlessness, diminished senses/inability to respond to stimulus although ability to be aware of them remains intact longer, changes in body temperatures, skin changes/mottling/cyanosis, respiratory pattern changes, oral secretions. Family verbalized understanding. The goal is to assure a peaceful . We discussed that for patients at the end of life, oxygen delivered by a nasal cannula provides no additional symptomatic benefit for relief of refractory dyspnea in patients with life-limiting illness compared with room air: there's a point at which that the oxygen level gets so low that it's no longer compatible with life. By providing supplemental oxygen, the dying process will be unnecessarily prolonged. Please use less burdensome but more effective strategies such as comfort care meds, oscillating fan, massage, repositioning, etc. (Carolyn AP, Keerthi CF, Johnathon PA, et al. Effect of palliative oxygen versus room air in relief of breathlessness in patients with refractory dys pnoea: a double-blind, randomised controlled trial. Lancet. 2010;376(4432):320- 813. doi:10.1016/I[address]808-64[address](20)11077-4) I recommended d/c O2 as pt is mouth breathing and oxygen is not adding to comfor t. Dtr in agreement. extensive psychosocial support and reassurance provided. Plan * Comfort orders modified as noted above * DC oxygen * patient is transitioning to active dying, anticipate within hours to days. Dtr aware. Goals are to assure comfortable EOL and comfort. Thank you for allowing us to participate in the ongoing care of this patient. Please don't hesitate to call or page with any additional concerns. Dr. Guillermina Richards DNP Director, Palliative Care Admission and Anticipated Discharge Date Admission Date: August 11, 2023 Subjective Isis remains on comfort care She is now minimally responsive Daughter and pt's long time caregiver at bedside Dtr states older brother elected not to come and the other brother who is local refuses to come see pt in hospital or relieve dtr from being at bedside. pt is noted to be in resp distress she is diaphoretic dtr feels she is not comfortable and was told to ask me about a possible morphine infusion Review of Systems Review of Systems: Unobtainable due to reduced consciousness Physical Exam Physical Exam: frail, cachectic female reclined in bed diaphoretic lethargic +resp distress, use of accessory muscles and +abd breathing +mouth breathing mucosa dry neck without stridor bilat coarse rhonchi, diminished tachy s1s2 abd scaphoid BLE with CLL hyperpigmentation, cool to touch, soles mottled, above knees mottling nalbeds dusky patient lethargic, weakly tried to open eyes but drifts back, eyes tearing, facial grimacing noted Results & Data Vital Signs (Past 12 Hours) Vital Signs O2 Del Method O2 Flow Rate 09/05/23 07:46 Nasal Cannula 2 PG Care Time/CCT Total # of Minutes Spent Total Time Spent with Patient: Total time spent is greater than 50% in coordination of care (as documented) at patient's floor/unit and/or counseling patient: I spent 80 minutes overall addressing this case: 10 min in medical data review/discussion with referring provider(s) and/or preparation for the visit 15 min in direct interaction with the patient/exam 25 min in Advance Care Planning/Goals of Care discussions as detailed above in note (must be >16min) 15 min in subsequent review and synthesis of assessment and plan 15 min communicating with other providers regarding the patient's case: nursing, primary team Advanced Care Planning 29146 Advanced Care Planning 30 Min [place] [address] SUB INP/OBS CARE 3/50MIN Patient Type Established History Comprehensive Exam Comprehensive Medical Decision Making High Complexity Diagnoses Dyspnea and respiratory abnormalities R06.00; R06.89 Cancer related pain G89.3 Weakness generalized R53.1 Failure to thrive in adult R62.7 Palliative care by specialist Z51.5 Discussion about advance care planning held with family member Z71.0 Additional Codes Advanced Care Planning - 41930 Advanced Care Planning 30 Min: 48600 Advanced Care Planning 30 Min ([id number])
[2023-09-05] MEDS: MoRPHine BOLUS from BAG IV PRN (16:00)
--- NOTE | 2023-09-05 22:21 | Death Pronouncement Note ---
Date of Service September 05, 2023 Pronouncement Note Admission Date August 11, 2023 Date and Time of Date of : 09/05/23 Time of : 21:15 Additional Data Confirmation of : no pulse, no respirations, no heart sounds and pupils fixed and dilated Attending physician: Lisa Felix MD
--- NOTE | 2023-09-07 17:40 | Discharge Summary ---
Discharge Summary Date of Service September 07, 2023 Notes For Next Care Provider Medication Changes From Visit 09/04 Date and Time of Date of : 09/05/23 Time of : 21:15 Additional Data Confirmation of : no pulse, no respirations, no heart sounds and pupils fixed and dilated Attending physician: Lisa Felix MD Admission HPI Per Admitting Provider Patient is 87-year-old female with PMH CLL, HTN, anxiety, depression, osteoarthritis, gout, GERD presented to the ER with complaint of shortness of breath. History obtained from patient, patient's caregiver, patient's daughter as well as outpatient and inpatient chart review. Patient was seen at [facility] ER on 08/05/2023 for URI symptoms and chills and had +COVID-19 PCR and CXR at that time with no acute infiltrate. Patient has been home using OTC NyQuil and Tessalon Perles with limited relief. States chronic SOB with exertion however feeling more SOB. Patient states feeling short of breath with conversation. States his coughing a lot. States unable to expel much sputum but feels like needs to. States unable to expel is clear coloration. Denies hemoptysis. States home pulse ox with intermittent readings in 80's. Decreased appetite. Reports still having fevers, temperature 100 F. Reports fatigue and generalized weakness. Denies history of COVID-19 infection prior. Reports is up-to-date on COVID-19 vaccinations. Is on IVIG for CLL and last was given on 07/16/23. She has nasal obstruction secondary to mass that was recently biopsied. Is following with ENT. States has been doing a lot of mouth breathing. Denies N/V/D/C, GALLEGOS, dizziness, syncope, CP, palpitations, choking, abdominal pain, paresthesias, extremity edema, rashes, urinary symptoms. Admission Exam Per Admitting Provider General: +distress with noted tachypnea, +chronic ill appearing, thin elderly female Head: normocephalic, atraumatic Eyes: PERRL, EOM's intact, conjunctiva non-injected, anicteric ENT: +hard of heraing, normal inspection external ears, nose, mucous membranes mildly dry Neck: supple, trachea midline Lungs: +tachypnea, +SOB with speaking, RR: 24, 93% on RA, +rales RUL, +cough CV: RRR, no murmur, no pretibial edema Abd: normal BS, soft, non-tender Ext: no cyanosis, no calf tenderness Neuro: A&O x 3, no focal deficits noted, normal affect Skin: warm, dry, +chronic bilateral leg skin discoloration Principal Dx & Hospital Course #1 = Principal Diagnosis (1) Pneumonia: Plan Patient is an 87 yr female with PMH of CLL, HTN, anxiety, depression, osteoarthritis, gout, GERD presented to the ER with complaint of cough & shortness of breath. Recently diagnosed of COVID 19 infection on 08/05/2023 with unremarkable CXR. Symptoms progressed with worsening cough and SOB and continued fevers. Course complicated by aspiration pneumonia after attempt of PEG feeding. Course continued to decline. 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 Discharge Exam Not present to declare patient Updated Medication List Medication Instructions Recorded Confirmed Type calcium citrate 250 mg 2 tab PO QAM 05/18/18 08/11/23 History calcium-vitamin D3 5 mcg (200 unit) tablet citalopram 10 mg tablet 10 mg PO QAM 05/18/18 08/11/23 History diclofenac sodium 1 % topical gel 2 g topical QID PRN Pain 02/20/21 08/11/23 History cyanocobalamin (vitamin B-12) 1,000 mcg IM MONTHLY 01/14/22 08/11/23 History 1,000 mcg/mL injection solution ammonium lactate 12 % topical cream 1 applic topical DIRECTED PRN 08/16/22 08/11/23 History dry skin,arms and legs prednisone 5 mg tablet 5 mg PO DAILY 01/18/23 08/11/23 History polyethylene glycol 3350 17 gram 17 g PO DAILY PRN constipation #30 01/19/23 08/11/23 Rx oral powder packet (Miralax) ea sennosides 8.6 mg-docusate sodium 1 tab PO QAM #30 tabs 01/19/23 08/11/23 Rx 50 mg tablet (Senokot-S) fluticasone propionate 50 2 spray intranasal DAILY 08/05/23 08/11/23 History mcg/actuation nasal spray,suspension loratadine 10 mg tablet (Claritin) 10 mg PO DAILY PRN Congestion 08/05/23 08/11/23 History lorazepam 0.5 mg tablet 0.5 mg PO HS 08/05/23 08/11/23 History multivitamin with minerals 1 tab PO DAILY 08/05/23 08/11/23 History sodium chloride 0.65 % nasal spray 1 spray intranasal DIRECTED PRN 08/05/23 08/11/23 History aerosol (Saline Nasal) Congestion benzonatate 100 mg capsule 100 mg PO TID PRN cough #30 caps 08/06/23 08/11/23 Rx Hospital Stay Data Consultations 08/11/23 17:39 ED Decision to Admit Stat 08/13/23 15:11 Consult Pulmonology Routine 08/18/23 12:15 Consult Gastroenterology Routine 08/19/23 08:29 Consult Neurology Routine 08/23/23 16:45 Consult Nephrology Routine 08/25/23 11:09 Consult Gastroenterology Routine 09/03/23 07:55 Consult Palliative Care Routine Procedures Performed Operation Date: 09/01/23 08:30 Actual Procedures p Esophagogastroduodenoscopy with peg tube placement and biopsy - Abbey coreas MD Diagnostic Imagining Performed 08/14/23 12:19 CT chest diagnostic w con Routine 08/18/23 10:35 FL video swallow Routine 08/18/23 15:00 CT angio neck with con Routine CTA head wo/w [CT angio head wo/w] Routine MR brain wo/w con Routine 08/19/23 12:39 MRI Brain [MR brain wo con] Routine Total Time Total Time Spent Total Time Spent (In Minutes): 0
== END 2023-09-05 23:59 | disposition expired | DRG 871 ==
LOC: ED 15:10 → EDINP 18:09 → SUATTDRO 18:09 → 2N 08-13 16:26 → 2W 08-19 17:59 → 2S 09-03 06:18 → 3E 09-04 14:02